=== PATIENT | male | born 1965 | race Caucasian/White ===

== ENCOUNTER 2020-09-02 21:22 | Inpatient (IN) | payer OTHER ==
[2020-09-02] MEDS ORDERED: methylPREDNISolone SOD SUCCI 125 MG/2 ML VIAL IV STA (21:45)
[2020-09-02] MEDS ORDERED: IPRATROPIUM-ALBUTEROL 3 ML NEB INHALATION STA (21:45)
[2020-09-02 21:56] LABS: HCT 46.4 % (39.0-53.0); HGB 16.5 gm/dL (13.0-17.5); MCH 31.7 pg (25.0-35.0); MCHC 35.6 g/dL (31.0-37.0); MCV 88.9 fL (80.0-100.0); Mean Platelet Volume 8.1; Platelet Count 168 k/uL (150-450); RBC 5.22 m/uL (4.30-5.90)
[2020-09-02 22:06] LABS: AST 107 U/L (17-59); African American GFR (CKD) >90 (>60 ml/min/1.73 sqM); Albumin 3.7 g/dL (3.5-5.0); Alkaline Phosphatase 114 U/L (38-126); Anion Gap 16 mmol/L; Blood Urea Nitrogen 35 mg/dL (9-20); Calcium 8.4 mg/dL (8.4-10.2); Carbon Dioxide 16 mmol/L (22-30); Chloride 105 mmol/L (98-107); Glucose 180 mg/dL (74-99); Magnesium 2.9 mg/dL (1.6-2.3); Non-African American GFR(CKD) 80 (>60 ml/min/1.73 sqM); Sodium 137 mmol/L (137-145); Total Bilirubin 1.6 mg/dL (0.2-1.3)
[2020-09-02 22:10] LABS: ALT 48 U/L (4-49)
[2020-09-02 22:17] LABS: C Reactive Protein 180.3 mg/L (<10.0)
[2020-09-02 22:21] LABS: INR 1.1 (<1.2); Prothrombin Time 11.9 sec (9.0-12.0)
--- NOTE | 2020-09-02 22:21 | XR ---
EXAMINATION TYPE: XR chest 1V portable DATE OF EXAM: 09/02/2020 COMPARISON: NONE HISTORY: Short of breath TECHNIQUE: Single view FINDINGS: There are bilateral extensive pulmonary interstitial infiltrates. Heart size is fairly norm al. There is no definite pleural effusion. There are no hilar masses. IMPRESSION: Bilateral interstitial pneumonia. Normal heart.
[2020-09-02] MEDS: ALBUTEROL HFA INHALER INHALATION SCH (22:22)
[2020-09-02 22:26] LABS: Band Neutrophils % 6 %; Lymphocytes # (M) 1.32 k/uL (1.0-4.8); Metamyelocytes # (M) 0.66 k/uL (0); Metamyelocytes % 2 %; Monocytes # (M) 2.32 k/uL (0-1.0); Myelocytes # (M) 0.33 k/uL (0); Myelocytes % 1 %; Neutrophils % (M) 81 %; Nucleated Red Blood Cells 2 /100 WBC (0-0); Promyelocytes # (M) 0.33 k/uL (0); Promyelocytes % 1 %; Total Cells Counted 200; WBC 33.1 k/uL (3.8-10.6)
[2020-09-02 22:34] LABS: Partial Thromboplastin Time 18.6 sec (22.0-30.0)
[2020-09-02 23:05] LABS: LDH 5924 U/L (313-618)
[2020-09-02] MEDS ORDERED: SODIUM CHLORIDE 0.9% 500 ML 500 ML IV ONE (23:19)
--- NOTE | 2020-09-03 00:20 | CT ---
EXAMINATION TYPE: CT chest angio for PE DATE OF EXAM: 09/02/2020 COMPARISON: None HISTORY: covid , hypoxia CT DLP: 436.7 mGycm Automated exposure control for dose reduction was used. CONTRAST: Performed with IV Contrast, patient injected with 75 mL of Isovue 370. There are 3-D post processed images. There is extensive patchy pulmonary interstitial infiltrates in both lungs with some coalescent densi ty in the lower lung bobo. There is probably some mild atelectasis at the lung bases. There is no p leural effusion. There is no pericardial effusion. There is no mediastinal adenopathy. Thoracic aorta is intact. There is no aneurysm or dissection. The re are no hilar masses. There is normal contrast opacification of the pulmonary arteries. There are no filling defects. The thoracic vertebra have normal alignment. There is no compression fracture. Sternum is intact. The re is evidence of fatty infiltration of the liver. IMPRESSION: No evidence of pulmonary embolism. Extensive pulmonary infiltrates are mostly interstitial and consis tent with severe interstitial pneumonia.
[2020-09-03] MEDS ORDERED: NALOXONE 0.4 MG/ML 1 ML VIAL IV PRN (00:56)
--- NOTE | 2020-09-03 01:01 | ED ---
SOB HPI - General Chief Complaint: Shortness of Breath Stated Complaint: FRITZ Time Seen by Provider: 09/02/20 21:41 Source: patient, EMS Mode of arrival: EMS Limitations: no limitations - History of Present Illness Initial Comments: 54yo male with hx of HTN, former smoker presenting for cc of dyspnea. patient states he was recently diagnosed with covid about 2 weeks ago, he state he was initially fine but now for the past week he has had increasing dyspnea and today very severe. Patient denies any chest pressure. Deep inspiration leg swelling hemoptysis he denies jaw pain arm pain and diaphoresis. He states he has had body aches and chills. He states he really has not had fevers. Patient denies nausea vomiting diarrhea or rashes. Patient on arrival is in significant respiratory distress and is quite hypoxic. Patient initially was placed on some oxygen which was not sufficient Airvo ordered. - Related Data Home Medications Medication Instructions Recorded Confirmed Albuterol Inhaler [Ventolin Hfa 2 puff INHALATION RT-QID PRN 09/02/20 09/02/20 Inhaler] Azithromycin [Zithromax Z-pack (6 See Taper PO DIRECTED 09/02/20 09/02/20 tabs)] Dexamethasone [Decadron] 3 mg PO BID 09/02/20 09/02/20 Promethazine 6.25MG/5Ml [Phenergan 12.5 mg PO QID PRN 09/02/20 09/02/20 Syrup] allopurinoL [Zyloprim] 300 mg PO DAILY 09/02/20 09/02/20 amLODIPine [Norvasc] 10 mg PO DAILY 09/02/20 09/02/20 Allergies Allergy/AdvReac Type Severity Reaction Status Date / Time No Known Allergies Allergy Verified 09/02/20 22:38 Review of Systems ROS Statement: Those systems with pertinent positive or pertinent negative responses have been documented in the HPI. ROS Other: All systems not noted in ROS Statement are negative. Past Medical History Past Medical History: Hypertension History of Any Multi-Drug Resistant Organisms: None Reported Past Surgical History: No Surgical Hx Reported Past Anesthesia/Blood Transfusion Reactions: No Reported Reaction Smoking Status: Former smoker Past Alcohol Use History: Occasional Past Drug Use History: None Reported - Past Family History Father Family Medical History: Cancer General Exam - General Exam Comments Initial Comments: General: The patient is awake and alert, obvious respiratory distress Eye: Pupils are equal, round and reactive to light, extra-ocular movements are intact. No nystagmus. There is normal conjunctiva bilaterally. No signs of icterus. Ears, nose, mouth and throat: There are moist mucous membranes and no oral lesions. Neck: The neck is supple, there is no tenderness or JVD. Cardiovascular: There is a regular rate and rhythm. No murmur, rub or gallop is appreciated. Respiratory: Respirations are very labored use of accessory muscles, breath sounds are equal. No wheezes, stridor.. Rhonchi appreciated throughotu as well as crackles. lip cyanotic Gastrointestinal: Soft, non-distended, non-tender abdomen without masses or organomegaly noted. There is no rebound or guarding present Musculoskeletal: Normal ROM, no tenderness. Strength 5/5. Sensation intact. radial and dp pulses equal bilaterally 2+. Neurological: A&O x 3. CN II-XII intact, There are no obvious motor or sensory deficits. Coordination appears grossly intact. Speech is normal. Skin: Skin is warm and dry and no rashes or lesions are noted. no leg swelling or calf pain. Psychiatric: Cooperative, appropriate mood & affect, normal judgment. Limitations: no limitations Course Vital Signs 09/02/20 09/02/20 09/02/20 21:36 22:13 22:36 Temperature 98.1 F Pulse Rate 98 91 82 Respiratory 40 H 28 H 28 H Rate Blood Pressure 144/87 142/85 O2 Sat by Pulse 86 L 94 L 94 L Oximetry 09/02/20 09/03/20 09/03/20 23:00 00:00 00:10 Temperature Pulse Rate 80 79 Respiratory 28 H 28 H 32 H Rate Blood Pressure 144/88 140/84 O2 Sat by Pulse 94 L 97 Oximetry Procedures - [place] Protocol (Time Out) Nurse: Caitlin Cui Medical Decision Making - Medical Decision Making Covid + pt. presents in distress/hypoxic evaluated by myself at initial attending Dr. Lang. pt given steroids, albuterol inhaler. patient switched to bipap after airvo not successful. patient work of breathing significantly decreased. patient now saturating at 93-95%on bipap. elevated troponin. no PE. patient BNP within acceptable limits. interstitial pneumonia. patient will be admitted for respiratoyr distress syndrome secondary to covid. pulmonology on consult. Col[facility] Baby Nurse aware of admit for [facility]. accepted patient. Jonathan agreeable to care plan. Total of 1 hour of critical care time spent, obtaining hx, re-evaluation, consulting physicians ect. - Lab Data Result diagrams: 09/02/20 21:41 09/02/20 21:41 Lab Results 09/02/20 09/02/20 09/02/20 Range/Units 21:41 21:41 21:41 WBC 33.1 H (3.8-10.6) k/uL RBC 5.22 (4.30-5.90) m/uL Hgb 16.5 (13.0-17.5) gm/dL Hct 46.4 (39.0-53.0) % MCV 88.9 (80.0-100.0) fL MCH 31.7 (25.0-35.0) pg MCHC 35.6 (31.0-37.0) g/dL RDW 14.0 (11.5-15.5) % Plt Count 168 (150-450) k/uL MPV 8.1 Neutrophils % (Manual) 81 % Band Neuts % (Manual) 6 % Lymphocytes % (Manual) 4 % Monocytes % (Manual) 7 % Metamyelocytes % 2 % Myelocytes % 1 % Promyelocytes % 1 % Neutrophils # (Manual) 28.70 H (1.3-7.7) k/uL Lymphocytes # (Manual) 1.32 (1.0-4.8) k/uL Monocytes # (Manual) 2.32 H (0-1.0) k/uL Metamyelocytes # (Man) 0.66 H (0) k/uL Myelocytes # (Manual) 0.33 H (0) k/uL Promyelocytes # (Man) 0.33 H (0) k/uL Nucleated RBCs 2 H (0-0) /100 WBC Manual Slide Review Performed PT 11.9 (9.0-12.0) sec INR 1.1 (<1.2) APTT 18.6 L (22.0-30.0) sec D-Dimer >35.20 H (<0.60) mg/L FEU Sodium 137 (137-145) mmol/L Potassium 5.0 (3.5-5.1) mmol/L Chloride 105 (98-107) mmol/L Carbon Dioxide 16 L (22-30) mmol/L Anion Gap 16 mmol/L BUN 35 H (9-20) mg/dL Creatinine 1.04 (0.66-1.25) mg/dL Est GFR (CKD-EPI)AfAm >90 (>60 ml/min/1.73 sqM) Est GFR (CKD-EPI)NonAf 80 (>60 ml/min/1.73 sqM) Glucose 180 H (74-99) mg/dL Lactic Ac Sepsis Rflx Plasma Lactic Acid Raymond (0.7-2.0) mmol/L Calcium 8.4 (8.4-10.2) mg/dL Magnesium 2.9 H (1.6-2.3) mg/dL Total Bilirubin 1.6 H (0.2-1.3) mg/dL AST 107 H (17-59) U/L ALT 48 (4-49) U/L Alkaline Phosphatase 114 (38-126) U/L Lactate Dehydrogenase 5924 H (313-618) U/L Troponin I (0.000-0.034) ng/mL C-Reactive Protein 180.3 H (<10.0) mg/L NT-Pro-B Natriuret Pep pg/mL Total Protein 7.0 (6.3-8.2) g/dL Albumin 3.7 (3.5-5.0) g/dL 09/02/20 09/02/20 09/02/20 Range/Units 21:41 21:41 21:41 WBC (3.8-10.6) k/uL RBC (4.30-5.90) m/uL Hgb (13.0-17.5) gm/dL Hct (39.0-53.0) % MCV (80.0-100.0) fL MCH (25.0-35.0) pg MCHC (31.0-37.0) g/dL RDW (11.5-15.5) % Plt Count (150-450) k/uL MPV Neutrophils % (Manual) % Band Neuts % (Manual) % Lymphocytes % (Manual) % Monocytes % (Manual) % Metamyelocytes % % Myelocytes % % Promyelocytes % % Neutrophils # (Manual) (1.3-7.7) k/uL Lymphocytes # (Manual) (1.0-4.8) k/uL Monocytes # (Manual) (0-1.0) k/uL Metamyelocytes # (Man) (0) k/uL Myelocytes # (Manual) (0) k/uL Promyelocytes # (Man) (0) k/uL Nucleated RBCs (0-0) /100 WBC Manual Slide Review PT (9.0-12.0) sec INR (<1.2) APTT (22.0-30.0) sec D-Dimer (<0.60) mg/L FEU Sodium (137-145) mmol/L Potassium (3.5-5.1) mmol/L Chloride (98-107) mmol/L Carbon Dioxide (22-30) mmol/L Anion Gap mmol/L BUN (9-20) mg/dL Creatinine (0.66-1.25) mg/dL Est GFR (CKD-EPI)AfAm (>60 ml/min/1.73 sqM) Est GFR (CKD-EPI)NonAf (>60 ml/min/1.73 sqM) Glucose (74-99) mg/dL Lactic Ac Sepsis Rflx Plasma Lactic Acid Raymond 4.5 H* (0.7-2.0) mmol/L Calcium (8.4-10.2) mg/dL Magnesium (1.6-2.3) mg/dL Total Bilirubin (0.2-1.3) mg/dL AST (17-59) U/L ALT (4-49) U/L Alkaline Phosphatase (38-126) U/L Lactate Dehydrogenase (313-618) U/L Troponin I 4.190 H* (0.000-0.034) ng/mL C-Reactive Protein (<10.0) mg/L NT-Pro-B Natriuret Pep 750 pg/mL Total Protein (6.3-8.2) g/dL Albumin (3.5-5.0) g/dL 09/02/20 09/03/20 Range/Units 22:32 00:53 WBC (3.8-10.6) k/uL RBC (4.30-5.90) m/uL Hgb (13.0-17.5) gm/dL Hct (39.0-53.0) % MCV (80.0-100.0) fL MCH (25.0-35.0) pg MCHC (31.0-37.0) g/dL RDW (11.5-15.5) % Plt Count (150-450) k/uL MPV Neutrophils % (Manual) % Band Neuts % (Manual) % Lymphocytes % (Manual) % Monocytes % (Manual) % Metamyelocytes % % Myelocytes % % Promyelocytes % % Neutrophils # (Manual) (1.3-7.7) k/uL Lymphocytes # (Manual) (1.0-4.8) k/uL Monocytes # (Manual) (0-1.0) k/uL Metamyelocytes # (Man) (0) k/uL Myelocytes # (Manual) (0) k/uL Promyelocytes # (Man) (0) k/uL Nucleated RBCs (0-0) /100 WBC Manual Slide Review PT (9.0-12.0) sec INR (<1.2) APTT (22.0-30.0) sec D-Dimer (<0.60) mg/L FEU Sodium (137-145) mmol/L Potassium (3.5-5.1) mmol/L Chloride (98-107) mmol/L Carbon Dioxide (22-30) mmol/L Anion Gap mmol/L BUN (9-20) mg/dL Creatinine (0.66-1.25) mg/dL Est GFR (CKD-EPI)AfAm (>60 ml/min/1.73 sqM) Est GFR (CKD-EPI)NonAf (>60 ml/min/1.73 sqM) Glucose (74-99) mg/dL Lactic Ac Sepsis Rflx Y Plasma Lactic Acid Raymond 2.1 H* (0.7-2.0) mmol/L Calcium (8.4-10.2) mg/dL Magnesium (1.6-2.3) mg/dL Total Bilirubin (0.2-1.3) mg/dL AST (17-59) U/L ALT (4-49) U/L Alkaline Phosphatase (38-126) U/L Lactate Dehydrogenase (313-618) U/L Troponin I (0.000-0.034) ng/mL C-Reactive Protein (<10.0) mg/L NT-Pro-B Natriuret Pep pg/mL Total Protein (6.3-8.2) g/dL Albumin (3.5-5.0) g/dL Disposition Clinical Impression: ARDS (adult respiratory distress syndrome), Hypoxia, COVID-19, Pneumonia due to COVID-19 virus, Elevated troponin Disposition: ADMITTED IP TO THIS HOSP Condition: Stable Is patient prescribed a controlled substance at d/c from ED?: No Referrals: Darius Contreras MD [Primary Care Provider] - 1-2 days Time of Disposition: 01:00 Decision to Admit Reason: Admit from EC Decision Date: 09/03/20 Decision Time: 01:00
[2020-09-03] MEDS: ALBUTEROL HFA INHALER INHALATION SCH ×6 (03:34→22:14)
[2020-09-03] MEDS ORDERED: ENOXAPARIN 60 MG/0.6 ML SYRINGE SQ SCH (09:00)
[2020-09-03] MEDS ORDERED: TOCILIZUMAB 800 MG in SODIUM CHLORIDE 0.9% 60 ML IV ONE (09:30)
[2020-09-03 09:43] LABS: Amorphous Sediment,Urine Occasional /hpf; Appearance,Urine Clear (Clear); Bilirubin,Urine Negative (Negative); Blood,Urine Negative (Negative); Color,Urine Yellow; Glucose,Urine (UA) Negative (Negative); Hyaline Casts,Urine 4 /lpf (0-2); Ketones,Urine Negative (Negative); Leukocyte Esterase,Urine Negative (Negative); Mucus,Urine Few /hpf; Nitrite,Urine Negative (Negative); PH, Urine 5.5 (5.0-8.0); Protein,Urine 1+ (Negative); Specific Gravity,Urine 1.023 (1.001-1.035); Squamous Epithelial Cell,Urine <1 /hpf (0-4); Urobilinogen,Urine <2.0 mg/dL (<2.0); WBC,Urine 2 /hpf (0-5)
[2020-09-03] MEDS: DEXAMETHASONE SOD PHOSPHATE 10 MG/ML 1 ML VIAL IV SCH (10:05)
[2020-09-03] MEDS: ZINC SULFATE 220 MG CAP PO SCH (10:07)
[2020-09-03] MEDS: CHOLECALCIFEROL 25 MCG (1000 IU) TABLET PO SCH (10:07)
[2020-09-03] MEDS: ASCORBIC ACID 500 MG TAB PO SCH ×2 (10:07→21:25)
[2020-09-03] MEDS: SODIUM CHLORIDE 0.9% 1,000 ML IV SCH ×2 (10:08→12:56)
[2020-09-03] MEDS ORDERED: ALBUTEROL HFA INHALER INHALATION PRN (10:16)
--- NOTE | 2020-09-03 12:01 | ECHOF ---
Referral Reason:elevated troponin MEASUREMENTS -------- HEIGHT: 172.7 cm WEIGHT: 97.5 kg BP: RVIDd: 3.0 cm (< 3.3) IVSd: 1.7 cm (0.6 - 1.1) LVIDd: 4.1 cm (3.9 - 5.3) LVPWd: 1.5 cm (0.6 - 1.1) IVSs: 1.9 cm LVIDs: 3.0 cm LVPWs: 2.0 cm LAESV Index (A-L): 19.21 ml/m Ao Diam: 3.2 cm (2.0 - 3.7) AV Cusp: 2.3 cm (1.5 - 2.6) LA Diam: 2.8 cm (2.7 - 3.8) MV EXCURSION: 11.323 mm (> 18.000) MV EF SLOPE: 95 mm/s (70 - 150) EPSS: 0.9 cm MV E Gabriel: 0.67 m/s MV DecT: 321 ms MV A Gabriel: 0.73 m/s MV E/A Ratio: 0.91 AR PHT: 926 ms RAP: 5.00 mmHg RVSP: 36.60 mmHg FINDINGS -------- This was a technically adequate study. The left ventricular size is normal. There is moderate concentric left ventricular hypertrophy. O verall left ventricular systolic function is normal with, an EF between 55 - 60 %. The diastolic fi lling pattern is normal for the age of the patient 8.88. The right ventricle is normal in size. The left atrial size is normal. Normal LA size by volume 22+/-6 ml/m2. The right atrial size is normal. The aortic valve is trileaflet and appears structurally normal. The mitral valve is normal. There is trace mitral regurgitation. The tricuspid valve appears structurally normal. Trace tricuspid regurgitation present. Right adam tricular systolic pressure is normal at < 35 mmHg. The pulmonic valve was not well visualized. The aortic root size is normal. IVC Not well visulized. There is no pericardial effusion. CONCLUSIONS -------- 1. The left ventricular size is normal. 2. There is moderate concentric left ventricular hypertrophy. 3. Overall left ventricular systolic function is normal with, an EF between 55 - 60 %. 4. The diastolic filling pattern is normal for the age of the patient 8.88 5. There is trace mitral regurgitation. 6. Trace tricuspid regurgitation present. 7. There is no pericardial effusion. MOGUL OPERATOR: Ada Rosa RDCS
--- NOTE | 2020-09-03 13:36 | P.CNPUL ---
History of Present Illness Consult date: 09/03/20 Requesting physician: Jorge Castillo Reason for consult: dyspnea, hypoxemia, abnormal CXR/CT Chief complaint: Dyspnea, hypoxemia, Covid 19 pneumonia History of present illness: 54-year-old white male patient who is an ex smoker, carries [id number] smoking history quit smoking 1 year ago in May, history of hypertension and gout who sees Dr. Contreras, presented to the emergency department on 08/02/2020 with complaints of worsening shortness of breath, cough, and patient was diagnosed with Covid 19 one week ago, was tested at [facility] per Dr. Contreras's order. 2 weeks ago he had symptoms of flulike illness, sore throat, shortness of breath, weakness, muscle aches which progressively became worse, and patient developed worsening shortness of breath and had difficulty breathing and ambulating at home. He was placed on Decadron [address] Contreras and he has 1-1/2 days worth left of it. Chest x-ray in the emergency department showed bilateral interstitial pneumonia. White blood cell count was 33.1, d-dimer was greater than 35.2, CO2 is 16, the rest of electrolytes were unremarkable, B1 is 35 creatinine is 1.04, plasma lactic acid is 4.5, patient was given IV fluids and lactic acid came down to 1.8, total bilirubin was 1.6, AST is 107, ALT is 48, alkaline phosphatase is 114, LDH is 5924, first troponin was 4.190, and the second one went up to 6.960. CRP is 180.3, pro-calcitonin level is 0.33, urinalysis showed 1+ protein, but no definite sign of infection, pulse ox is 86 on room air, patient has significant shortness of breath, and was placed on B iPAP support, currently with pressures of 12/6, and FiO2 of 100% on which he remains this morning, he is afebrile, hemodynamically he is stable, she was started on IV Decadron, we'll start him on intermediate dose of Lovenox 50 mg every 12 hours, CTA chest shows no evidence of pulmonary embolism, and extensive pulmonary infiltrates that are mostly interstitial consistent with severe interstitial pneumonia. Review of Systems All systems: negative Constitutional: Denies chills, Denies fever Eyes: denies blurred vision, denies pain Ears, nose, mouth and throat: Denies headache, Denies sore throat Cardiovascular: Denies chest pain, Denies shortness of breath Respiratory: Reports dyspnea, Denies cough Gastrointestinal: Denies abdominal pain, Denies diarrhea, Denies nausea, Denies vomiting Musculoskeletal: Denies myalgias Integumentary: Denies pruritus, Denies rash Neurological: Denies numbness, Denies weakness Psychiatric: Denies anxiety, Denies depression Endocrine: Denies fatigue, Denies weight change Past Medical History Past Medical History: Hypertension History of Any Multi-Drug Resistant Organisms: None Reported Past Surgical History: No Surgical Hx Reported Past Anesthesia/Blood Transfusion Reactions: No Reported Reaction Smoking Status: Former smoker Past Alcohol Use History: Occasional Past Drug Use History: None Reported - Past Family History Father Family Medical History: Cancer Medications and Allergies Home Medications Medication Instructions Recorded Confirmed Type Albuterol Inhaler [Ventolin Hfa 2 puff INHALATION RT-QID PRN 09/02/20 09/02/20 History Inhaler] Azithromycin [Zithromax Z-pack (6 See Taper PO DIRECTED 09/02/20 09/02/20 History tabs)] Dexamethasone [Decadron] 3 mg PO BID 09/02/20 09/02/20 History Promethazine 6.25MG/5Ml [Phenergan 12.5 mg PO QID PRN 09/02/20 09/02/20 History Syrup] allopurinoL [Zyloprim] 300 mg PO DAILY 09/02/20 09/02/20 History amLODIPine [Norvasc] 10 mg PO DAILY 09/02/20 09/02/20 History Allergies Allergy/AdvReac Type Severity Reaction Status Date / Time No Known Allergies Allergy Verified 09/02/20 22:38 Physical Exam Vitals: Vital Signs Temp Pulse Resp BP Pulse Ox 09/03/20 11:11 97.7 F 58 L 32 H 141/78 94 L 09/03/20 06:09 97.5 F L 66 24 155/83 95 09/03/20 02:00 67 24 123/75 95 09/03/20 01:00 70 24 142/81 95 09/03/20 00:10 32 H 09/03/20 00:08 78 140/84 96 09/03/20 00:00 79 28 H 140/84 97 09/02/20 23:00 80 28 H 144/88 94 L 09/02/20 22:36 82 28 H 142/85 94 L 09/02/20 22:13 91 28 H 94 L 09/02/20 21:36 98.1 F 98 40 H 144/87 86 L Intake and Output 09/02/20 09/03/20 09/03/20 22:59 06:59 14:59 Output Total 500 Balance -500 Output: Urine 500 Other: Weight 97.522 kg GENERAL EXAM: Alert, very pleasant, 54-year-old white male, BiPAP support, with pressures of 12 6 and FiO2 of 100%, comfortable in no apparent distress. HEAD: Normocephalic/atraumatic. EYES: Normal reaction of pupils, equal size. Conjunctiva pink, sclera white. NOSE: Clear with pink turbinates. THROAT: No erythema or exudates. NECK: No masses, no JVD, no thyroid enlargement, no adenopathy. CHEST: No chest wall deformity. Symmetrical expansion. LUNGS: Equal air entry with no crackles, wheeze, rhonchi or dullness. CVS: Regular rate and rhythm, normal S1 and S2, no gallops, no murmurs, no rubs ABDOMEN: Soft, nontender. No hepatosplenomegaly, normal bowel sounds, no guarding or rigidity. EXTREMITIES: No clubbing, no edema, no cyanosis, 2+ pulses and upper and lower extremities. MUSCULOSKELETAL: Muscle strength and tone normal. SPINE: No scoliosis or deformity SKIN: No rashes CENTRAL NERVOUS SYSTEM: Alert and oriented -3. No focal deficits, tone is normal in all 4 extremities. PSYCHIATRIC: Alert and oriented -3. Appropriate affect. Intact judgment and insight. Results - Laboratory Findings CBC and BMP: 09/02/20 21:41 09/02/20 21:41 PT/INR, D-dimer PT 11.9 sec (9.0-12.0) 09/02/20 21:41 INR 1.1 (<1.2) 09/02/20 21:41 D-Dimer >35.20 mg/L FEU (<0.60) H 09/02/20 21:41 Abnormal lab findings: Abnormal Labs 09/02/20 09/02/20 04 21:41 21:41 21:41 WBC 33.1 H Neutrophils # (Manual) 28.70 H Monocytes # (Manual) 2.32 H Metamyelocytes # (Man) 0.66 H Myelocytes # (Manual) 0.33 H Promyelocytes # (Man) 0.33 H Nucleated RBCs 2 H APTT 18.6 L D-Dimer >35.20 H Carbon Dioxide 16 L BUN 35 H Glucose 180 H Plasma Lactic Acid Raymond Magnesium 2.9 H Total Bilirubin 1.6 H AST 107 H Lactate Dehydrogenase 5924 H Troponin I C-Reactive Protein 180.3 H Procalcitonin Urine Protein Amorphous Sediment Hyaline Casts Urine Mucus 09/02/20 09/02/20 09/02/20 21:41 21:41 21:41 WBC Neutrophils # (Manual) Monocytes # (Manual) Metamyelocytes # (Man) Myelocytes # (Manual) Promyelocytes # (Man) Nucleated RBCs APTT D-Dimer Carbon Dioxide BUN Glucose Plasma Lactic Acid Raymond 4.5 H* Magnesium Total Bilirubin AST Lactate Dehydrogenase Troponin I 4.190 H* C-Reactive Protein Procalcitonin 0.33 H Urine Protein Amorphous Sediment Hyaline Casts Urine Mucus 09/03/20 09/03/20 09/03/20 00:53 08:12 09:26 WBC Neutrophils # (Manual) Monocytes # (Manual) Metamyelocytes # (Man) Myelocytes # (Manual) Promyelocytes # (Man) Nucleated RBCs APTT D-Dimer Carbon Dioxide BUN Glucose Plasma Lactic Acid Raymond 2.1 H* Magnesium Total Bilirubin AST Lactate Dehydrogenase Troponin I 6.960 H* C-Reactive Protein Procalcitonin Urine Protein 1+ H Amorphous Sediment Occasional H Hyaline Casts 4 H Urine Mucus Few H - Diagnostic Findings Chest x-ray: report reviewed, image reviewed CT scan - chest: report reviewed, image reviewed Additional studies: EKG reviewed Assessment and Plan Plan: Assessment: #1. Acute hypoxic respiratory failure related to acute Covid 19 related pneumonia, with onset of symptoms 2 weeks ago, and positive outpatient test one week ago, was treated with oral Decadron on an outpatient basis with progression of symptoms and progression to hypoxic respiratory failure. Patient is out of the window for Remdesivir, he will receive Tocilizumab and 1 unit of convalescent plasma #2. Lactic acid, but low pro-calcitonin level, could be related to dehydration, improved with hydration #3. Elevated d-dimer, and inflammatory markers related to the above, no CTA evidence of pulmonary embolism, patient will be started on Lovenox 50 mg twice daily #4. Hypertension #5. Former smoker, in remission for 1 year, carries [id number] smoking history #6. Elevated troponins, no reports of chest pain, we will obtain follow-up troponin is and cardiology consultation and echocardiogram Plan: We'll continue current medical treatment, patient is out of the window for Remdesivir, we'll order Tocilizumab, continue vitamins, Lovenox 50 mg twice daily, there is no CTA evidence of pulmonary embolism, we'll continue to follow d-dimer on daily basis, unless cardiology decides to put the patient on heparin infusion once they evaluate the patient. Prognosis is guarded, continue to closely follow his clinical course, follow-up inflammatory markers chest x-ray tomorrow, I performed a history & physical examination of the patient and discussed their management with my nurse practitioner, Carli Schroeder. I reviewed the nurse practitioner's note and agree with the documented findings and plan of care. Lung sounds are positive for diminished breath sounds with crackles The findings and the impression was discussed with the patient. I attest to the documentation by the nurse practitioner. Time with Patient: Greater than 30
[2020-09-03] MEDS ORDERED: HEPARIN SODIUM 1,000 UN/ML (10ML VL) IV PRN (13:43)
[2020-09-03] MEDS ORDERED: ASPIRIN 325 MG TAB PO STA (13:45)
--- NOTE | 2020-09-03 13:47 | P.HPIM ---
History of Present Illness Patient is pleasant 54-year-old male came in with complaints of shortness of breath cough. Episodes of diarrhea nausea, generalized body aches and fevers at home patient was diagnosed with Covid 19 about a week ago patient's symptoms can you to get worse and patient is more short of breath because of which patient came to ER found to be hypoxic was started on IV fluids and patient has elevated inflammatory markers along with elevated troponin of 4.190 which of and up to 6.960 was started on IV heparin Decadron subsequently admitted. Patient had a CT of the chest which did not show any PE but did show extensive pulmonary infiltrates had an echocardiogram as well which did not show any significant abnormality. Cardiology and pulmonology were consulted. Patient is on heparin 50 twice a day which will be switched to anticoagulation those that is 90 twice a day testing elevation of troponin. Review of Systems REVIEW OF SYSTEMS: CONSTITUTIONAL: As mentioned in HPI HEENT: No recent visual problems or hearing problems. Denied any sore throat. CARDIOVASCULAR: No chest pain, orthopnea, PND, no palpitations, no syncope. PULMONARY: No shortness of breath, no cough, no hemoptysis. GASTROINTESTINAL: No diarrhea, no nausea, no vomiting, no abdominal pain. NEUROLOGICAL: No headaches, no weakness, no numbness. HEMATOLOGICAL: Denies any bleeding or petechiae. GENITOURINARY: Denies any burning micturition, frequency, or urgency. MUSCULOSKELETAL/RHEUMATOLOGICAL: Denies any joint pain, swelling, or any muscle pain. ENDOCRINE: Denies any polyuria or polydipsia. The rest of the 14-point review of systems is negative. Past Medical History Past Medical History: Hypertension History of Any Multi-Drug Resistant Organisms: None Reported Past Surgical History: No Surgical Hx Reported Past Anesthesia/Blood Transfusion Reactions: No Reported Reaction Smoking Status: Former smoker Past Alcohol Use History: Occasional Past Drug Use History: None Reported - Past Family History Father Family Medical History: Cancer Medications and Allergies Home Medications Medication Instructions Recorded Confirmed Type Albuterol Inhaler [Ventolin Hfa 2 puff INHALATION RT-QID PRN 09/02/20 09/02/20 History Inhaler] Azithromycin [Zithromax Z-pack (6 See Taper PO DIRECTED 09/02/20 09/02/20 History tabs)] Dexamethasone [Decadron] 3 mg PO BID 09/02/20 09/02/20 History Promethazine 6.25MG/5Ml [Phenergan 12.5 mg PO QID PRN 09/02/20 09/02/20 History Syrup] allopurinoL [Zyloprim] 300 mg PO DAILY 09/02/20 09/02/20 History amLODIPine [Norvasc] 10 mg PO DAILY 09/02/20 09/02/20 History Allergies Allergy/AdvReac Type Severity Reaction Status Date / Time No Known Allergies Allergy Verified 09/02/20 22:38 Physical Exam Vitals: Vital Signs Temp Pulse Resp BP Pulse Ox 09/03/20 11:11 97.7 F 58 L 32 H 141/78 94 L 09/03/20 06:09 97.5 F L 66 24 155/83 95 09/03/20 02:00 67 24 123/75 95 09/03/20 01:00 70 24 142/81 95 09/03/20 00:10 32 H 09/03/20 00:08 78 140/84 96 09/03/20 00:00 79 28 H 140/84 97 09/02/20 23:00 80 28 H 144/88 94 L 09/02/20 22:36 82 28 H 142/85 94 L 09/02/20 22:13 91 28 H 94 L 09/02/20 21:36 98.1 F 98 40 H 144/87 86 L Intake and Output 09/02/20 09/03/20 09/03/20 22:59 06:59 14:59 Output Total 500 Balance -500 Output: Urine 500 Other: Weight 97.522 kg PHYSICAL EXAMINATION: GENERAL: The patient is alert and oriented x3, not in any acute distress. Well developed, well nourished. HEENT: Pupils are round and equally reacting to light. EOMI. No scleral icterus. No conjunctival pallor. Normocephalic, atraumatic. No pharyngeal erythema. No thyromegaly. CARDIOVASCULAR: S1 and S2 present. No murmurs, rubs, or gallops. PULMONARY: Chest is clear to auscultation, no wheezing or crackles. ABDOMEN: Soft, nontender, nondistended, normoactive bowel sounds. No palpable organomegaly. MUSCULOSKELETAL: No joint swelling or deformity. EXTREMITIES: No cyanosis, clubbing, or pedal edema. NEUROLOGICAL: Gross neurological examination did not reveal any focal deficits. SKIN: No rashes. Results CBC & Chem 7: 09/02/20 21:41 09/02/20 21:41 Labs: Abnormal Lab Results - Last 24 Hours (Table) 09/02/20 09/02/20 09/02/20 Range/Units 21:41 21:41 21:41 WBC 33.1 H (3.8-10.6) k/uL Neutrophils # (Manual) 28.70 H (1.3-7.7) k/uL Monocytes # (Manual) 2.32 H (0-1.0) k/uL Metamyelocytes # (Man) 0.66 H (0) k/uL Myelocytes # (Manual) 0.33 H (0) k/uL Promyelocytes # (Man) 0.33 H (0) k/uL Nucleated RBCs 2 H (0-0) /100 WBC APTT 18.6 L (22.0-30.0) sec D-Dimer >35.20 H (<0.60) mg/L FEU Carbon Dioxide 16 L (22-30) mmol/L BUN 35 H (9-20) mg/dL Glucose 180 H (74-99) mg/dL Plasma Lactic Acid Raymond (0.7-2.0) mmol/L Magnesium 2.9 H (1.6-2.3) mg/dL Total Bilirubin 1.6 H (0.2-1.3) mg/dL AST 107 H (17-59) U/L Lactate Dehydrogenase 5924 H (313-618) U/L Troponin I (0.000-0.034) ng/mL C-Reactive Protein 180.3 H (<10.0) mg/L Procalcitonin (0.02-0.09) ng/mL Urine Protein (Negative) Amorphous Sediment (None) /hpf Hyaline Casts (0-2) /lpf Urine Mucus (None) /hpf 09/02/20 09/02/20 09/02/20 Range/Units 21:41 21:41 21:41 WBC (3.8-10.6) k/uL Neutrophils # (Manual) (1.3-7.7) k/uL Monocytes # (Manual) (0-1.0) k/uL Metamyelocytes # (Man) (0) k/uL Myelocytes # (Manual) (0) k/uL Promyelocytes # (Man) (0) k/uL Nucleated RBCs (0-0) /100 WBC APTT (22.0-30.0) sec D-Dimer (<0.60) mg/L FEU Carbon Dioxide (22-30) mmol/L BUN (9-20) mg/dL Glucose (74-99) mg/dL Plasma Lactic Acid Raymond 4.5 H* (0.7-2.0) mmol/L Magnesium (1.6-2.3) mg/dL Total Bilirubin (0.2-1.3) mg/dL AST (17-59) U/L Lactate Dehydrogenase (313-618) U/L Troponin I 4.190 H* (0.000-0.034) ng/mL C-Reactive Protein (<10.0) mg/L Procalcitonin 0.33 H (0.02-0.09) ng/mL Urine Protein (Negative) Amorphous Sediment (None) /hpf Hyaline Casts (0-2) /lpf Urine Mucus (None) /hpf 09/03/20 09/03/20 09/03/20 Range/Units 00:53 08:12 09:26 WBC (3.8-10.6) k/uL Neutrophils # (Manual) (1.3-7.7) k/uL Monocytes # (Manual) (0-1.0) k/uL Metamyelocytes # (Man) (0) k/uL Myelocytes # (Manual) (0) k/uL Promyelocytes # (Man) (0) k/uL Nucleated RBCs (0-0) /100 WBC APTT (22.0-30.0) sec D-Dimer (<0.60) mg/L FEU Carbon Dioxide (22-30) mmol/L BUN (9-20) mg/dL Glucose (74-99) mg/dL Plasma Lactic Acid Raymond 2.1 H* (0.7-2.0) mmol/L Magnesium (1.6-2.3) mg/dL Total Bilirubin (0.2-1.3) mg/dL AST (17-59) U/L Lactate Dehydrogenase (313-618) U/L Troponin I 6.960 H* (0.000-0.034) ng/mL C-Reactive Protein (<10.0) mg/L Procalcitonin (0.02-0.09) ng/mL Urine Protein 1+ H (Negative) Amorphous Sediment Occasional H (None) /hpf Hyaline Casts 4 H (0-2) /lpf Urine Mucus Few H (None) /hpf 09/03/20 Range/Units 11:59 WBC (3.8-10.6) k/uL Neutrophils # (Manual) (1.3-7.7) k/uL Monocytes # (Manual) (0-1.0) k/uL Metamyelocytes # (Man) (0) k/uL Myelocytes # (Manual) (0) k/uL Promyelocytes # (Man) (0) k/uL Nucleated RBCs (0-0) /100 WBC APTT (22.0-30.0) sec D-Dimer (<0.60) mg/L FEU Carbon Dioxide (22-30) mmol/L BUN (9-20) mg/dL Glucose (74-99) mg/dL Plasma Lactic Acid Raymond (0.7-2.0) mmol/L Magnesium (1.6-2.3) mg/dL Total Bilirubin (0.2-1.3) mg/dL AST (17-59) U/L Lactate Dehydrogenase (313-618) U/L Troponin I 6.590 H* (0.000-0.034) ng/mL C-Reactive Protein (<10.0) mg/L Procalcitonin (0.02-0.09) ng/mL Urine Protein (Negative) Amorphous Sediment (None) /hpf Hyaline Casts (0-2) /lpf Urine Mucus (None) /hpf Assessment and Plan Plan: -Acute hypoxic respiratory failure: Secondary to Covid 19. Patient was started on Decadron, vitamins. Patient is out of the window for Remdesivir, he will receive Tocilizumab and 1 unit of convalescent plasma. -Lactic acidosis secondary to intravascular volume depletion dehydration patient will be started and continued on IV fluids -Hypertension -Rule out PE -Elevated troponins cannot rule out that non-ST elevation myocardial infarction cardiology was consulted echocardiogram was done which did not show any significant abnormality patient troponin trend is upwards, changing the dose of Lovenox to anticoagulation dose -GI prophylaxis with Pepcid
--- NOTE | 2020-09-03 13:50 | P.CRDCN ---
History of Present Illness Consult date: 09/03/20 Chief complaint: shortness of breath History of present illness: This is a 54-year-old gentleman with no significant past medical history who pre sented to the emergency department complaining of shortness of breath. we consulted to see the patient because of abnormal cardiac enzymes. The patient stated that he was short of breath for the last few weeks. About a week ago he was tested positive for cough 19 infection. For the last few days he has been experiencing increasing in the shortness of breath and flulike symptoms. No fever and no chills. No chest pain and no chest discomfort. No cough or sputum. The chest x-ray showed bilateral interstitial pneumonia and infiltrates. WBC was elevated. Computed tomography scan of the chest was performed for abnormal d-dimer and the computed tomography scan showed also bilateral infiltrate without any evidence of PE. The troponin was elevated. The EKG showed sinus rhythm with nonspecific ST and T wave abnormalities. No prior history of coronary artery disease or congestive heart failure and no cardiac arrhythmia. 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 On examina tion he seems comfortable. He is not having any chest discomfort at this point. He does have diminished breathing sounds bilaterally and also bilateral crackles. Very mild bilateral lower extremities edema noted. Please note that his lactic acid came in to be elevated. The patient was seen already by the pulmonary service he was diagnosed with bilateral pneumonia and was started on antibiotic. Past Medical History Past Medical History: Hypertension History of Any Multi-Drug Resistant Organisms: None Reported Past Surgical History: No Surgical Hx Reported Past Anesthesia/Blood Transfusion Reactions: No Reported Reaction Smoking Status: Former smoker Past Alcohol Use History: Occasional Past Drug Use History: None Reported - Past Family History Father Family Medical History: Cancer Medications and Allergies Home Medications Medication Instructions Recorded Confirmed Type Albuterol Inhaler [Ventolin Hfa 2 puff INHALATION RT-QID PRN 09/02/20 09/02/20 History Inhaler] Azithromycin [Zithromax Z-pack (6 See Taper PO DIRECTED 09/02/20 09/02/20 History tabs)] Dexamethasone [Decadron] 3 mg PO BID 09/02/20 09/02/20 History Promethazine 6.25MG/5Ml [Phenergan 12.5 mg PO QID PRN 09/02/20 09/02/20 History Syrup] allopurinoL [Zyloprim] 300 mg PO DAILY 09/02/20 09/02/20 History amLODIPine [Norvasc] 10 mg PO DAILY 09/02/20 09/02/20 History Allergies Allergy/AdvReac Type Severity Reaction Status Date / Time No Known Allergies Allergy Verified 09/02/20 22:38 Physical Exam Vitals: Vital Signs Temp Pulse Resp BP Pulse Ox 09/03/20 11:11 97.7 F 58 L 32 H 141/78 94 L 09/03/20 06:09 97.5 F L 66 24 155/83 95 09/03/20 02:00 67 24 123/75 95 09/03/20 01:00 70 24 142/81 95 09/03/20 00:10 32 H 09/03/20 00:08 78 140/84 96 09/03/20 00:00 79 28 H 140/84 97 09/02/20 23:00 80 28 H 144/88 94 L 09/02/20 22:36 82 28 H 142/85 94 L 09/02/20 22:13 91 28 H 94 L 09/02/20 21:36 98.1 F 98 40 H 144/87 86 L Intake and Output 09/02/20 09/03/20 09/03/20 22:59 06:59 14:59 Output Total 500 Balance -500 Output: Urine 500 Other: Weight 97.522 kg - Constitutional General appearance: no acute distress - Respiratory Respiratory: bilateral: diminished - Cardiovascular Rhythm: regular Heart sounds: normal: S1, S2 Results 09/02/20 21:41 09/02/20 21:41 Cardiac Enzymes 09/02/20 09/02/20 09/03/20 Range/Units 21:41 21:41 08:12 AST 107 H (17-59) U/L Lactate Dehydrogenase 5924 H (313-618) U/L Troponin I 4.190 H* 6.960 H* (0.000-0.034) ng/mL 09/03/20 Range/Units 11:59 AST (17-59) U/L Lactate Dehydrogenase (313-618) U/L Troponin I 6.590 H* (0.000-0.034) ng/mL Coagulation 09/02/20 Range/Units 21:41 PT 11.9 (9.0-12.0) sec APTT 18.6 L (22.0-30.0) sec CBC 09/02/20 Range/Units 21:41 WBC 33.1 H (3.8-10.6) k/uL RBC 5.22 (4.30-5.90) m/uL Hgb 16.5 (13.0-17.5) gm/dL Hct 46.4 (39.0-53.0) % Plt Count 168 (150-450) k/uL Comprehensive Metabolic Panel 09/02/20 Range/Units 21:41 Sodium 137 (137-145) mmol/L Potassium 5.0 (3.5-5.1) mmol/L Chloride 105 (98-107) mmol/L Carbon Dioxide 16 L (22-30) mmol/L BUN 35 H (9-20) mg/dL Creatinine 1.04 (0.66-1.25) mg/dL Glucose 180 H (74-99) mg/dL Calcium 8.4 (8.4-10.2) mg/dL AST 107 H (17-59) U/L ALT 48 (4-49) U/L Alkaline Phosphatase 114 (38-126) U/L Total Protein 7.0 (6.3-8.2) g/dL Albumin 3.7 (3.5-5.0) g/dL Current Medications Generic Name Dose Route Start Last Admin Trade Name Freq PRN Reason Stop Dose Admin Albuterol Sulfate 2 puff 09/02/20 22:00 09/03/20 13:43 Albuterol Hfa Inhaler INHALATION 2 puff Q4H SPENSER Administration Albuterol Sulfate 2 puff 09/03/20 10:16 Albuterol Hfa Inhaler INHALATION RT-QID PRN Shortness Of Breath Allopurinol 300 mg 09/04/20 09:00 Allopurinol 300 Mg Tab PO DAILY [facility] Amlodipine Besylate 10 mg 09/04/20 09:00 Amlodipine 10 Mg Tab PO DAILY [facility] Ascorbic Acid 500 mg 09/03/20 09:00 09/03/20 10:07 Ascorbic Acid 500 Mg Tab PO 500 mg BID SPENSER Administration Cholecalciferol 125 mcg 09/03/20 09:00 09/03/20 10:07 Cholecalciferol 25 Mcg (1000 Iu) Tablet PO 125 mcg DAILY SPENSER Administration Dexamethasone Sodium Phosphate 6 mg 09/03/20 09:00 09/03/20 10:05 Dexamethasone Sod Phosphate 10 Mg/Ml 1 Ml Vial IV 6 mg DAILY SPENSER Administration Sodium Chloride 1,000 mls @ 75 mls/hr 09/02/20 23:30 09/03/20 12:56 Saline 0.9% IV 75 mls/hr .[id number] SPENSER Administration Naloxone HCl 0.2 mg 09/03/20 00:56 Naloxone 0.4 Mg/Ml 1 Ml Vial IV Q2M PRN Opioid Reversal Promethazine HCl 12.5 mg 09/03/20 10:16 Promethazine Hcl 6.25 Mg/5 Ml Cup PO QID PRN Cough Zinc Sulfate 220 mg 09/03/20 09:00 09/03/20 10:07 Zinc Sulfate 220 Mg Cap PO 220 mg DAILY SPENSER Administration Intake and Output 09/02/20 09/03/20 09/03/20 22:59 06:59 14:59 Output Total 500 Balance -500 Output: Urine 500 Other: Weight 97.522 kg 09/02/20 21:41 09/02/20 21:41 Assessment and Plan Assessment: assessment 1. Acute hypoxic respiratory failure 2. Bilateral pneumonia 3. Abnormal cardiac enzymes likely type II myocardial infarction related to hypoxemia plan Start the patient on aspirin and heparin Start the patient on beta [place] Start the patient on statin Follow-up on the echocardiogram Follow-up with the patient
[2020-09-03] MEDS: HEPARIN SOD,PORK IN 0.45% NACL 25,000 UNIT in 0.45% NACL 1 250ML.BAG IV SCH (14:32)
[2020-09-03] MEDS: ATORVASTATIN 80 MG TAB PO SCH (14:34)
[2020-09-03] MEDS: FAMOTIDINE 20 MG TAB PO SCH ×2 (14:34→21:25)
[2020-09-03 15:45] LABS: INR 1.1 (<1.2); Partial Thromboplastin Time 20.4 sec (22.0-30.0); Prothrombin Time 11.6 sec (9.0-12.0)
[2020-09-03 20:11] LABS: Glucose,Whole Blood 134 mg/dL (75-99)
[2020-09-03] MEDS ORDERED: ENOXAPARIN 100 MG/ML SYRINGE SQ SCH (21:00)
[2020-09-03] MEDS: METOPROLOL TARTRATE 25 MG TAB PO SCH (21:24)
[2020-09-04] MEDS: ALBUTEROL HFA INHALER INHALATION SCH ×6 (01:23→20:35)
[2020-09-04 03:47] LABS: HCT 42.7 % (39.0-53.0); HGB 14.6 gm/dL (13.0-17.5); MCHC 34.2 g/dL (31.0-37.0); MCV 90.6 fL (80.0-100.0); Mean Platelet Volume 9.3; Platelet Count 140 k/uL (150-450); RBC 4.71 m/uL (4.30-5.90); RDW 14.4 % (11.5-15.5); WBC 29.3 k/uL (3.8-10.6)
[2020-09-04 03:53] LABS: ALT 40 U/L (4-49); AST 71 U/L (17-59); African American GFR (CKD) >90 (>60 ml/min/1.73 sqM); Albumin 2.9 g/dL (3.5-5.0); Alkaline Phosphatase 79 U/L (38-126); Anion Gap 6 mmol/L; Blood Urea Nitrogen 39 mg/dL (9-20); Calcium 8.2 mg/dL (8.4-10.2); Carbon Dioxide 25 mmol/L (22-30); Chloride 105 mmol/L (98-107); Glucose 120 mg/dL (74-99); Non-African American GFR(CKD) >90 (>60 ml/min/1.73 sqM); Potassium 5.1 mmol/L (3.5-5.1); Sodium 136 mmol/L (137-145); Total Bilirubin 0.9 mg/dL (0.2-1.3); Total Protein 5.8 g/dL (6.3-8.2)
[2020-09-04] MEDS: SODIUM CHLORIDE 0.9% 1,000 ML IV SCH ×2 (05:00→18:06)
[2020-09-04 05:44] LABS: C Reactive Protein 142.8 mg/L (<10.0); LDH 3965 U/L (313-618)
[2020-09-04 06:09] LABS: Glucose,Whole Blood 129 mg/dL (75-99)
--- NOTE | 2020-09-04 07:24 | XR ---
EXAMINATION TYPE: XR chest 1V portable DATE OF EXAM: 09/04/2020 HISTORY: Shortness of breath. COMPARISON: 09/02/2020 TECHNIQUE: Single view of the chest is submitted. FINDINGS: Demonstrated are scattered senescent parenchymal change. Worsening airspace infiltrates throughout both lung bobo. The heart is stable. Hilar and mediastinal structures are within normal limits. Degenerative changes are seen of the dorsal spine. IMPRESSION: 1. Worsening airspace infiltrates throughout both lung bobo.
[2020-09-04] MEDS: DEXAMETHASONE SOD PHOSPHATE 10 MG/ML 1 ML VIAL IV SCH (07:53)
[2020-09-04] MEDS: ZINC SULFATE 220 MG CAP PO SCH (07:54)
[2020-09-04] MEDS: ATORVASTATIN 80 MG TAB PO SCH (07:54)
[2020-09-04] MEDS: METOPROLOL TARTRATE 25 MG TAB PO SCH (07:54)
[2020-09-04] MEDS: ASPIRIN 81 MG PO SCH (07:54)
[2020-09-04] MEDS: amLODIPine 10 MG TAB PO SCH (07:54)
[2020-09-04] MEDS: FAMOTIDINE 20 MG TAB PO SCH ×2 (07:54→20:17)
[2020-09-04] MEDS: ASCORBIC ACID 500 MG TAB PO SCH ×2 (07:55→20:17)
[2020-09-04] MEDS: CHOLECALCIFEROL 25 MCG (1000 IU) TABLET PO SCH (07:55)
[2020-09-04] MEDS: allopurinoL 300 MG TAB PO SCH (07:55)
--- NOTE | 2020-09-04 11:53 | P.PN ---
Subjective Patient is pleasant 54-year-old male came in with complaints of shortness of breath cough. Episodes of diarrhea nausea, generalized body aches and fevers at home patient was diagnosed with Covid 19 about a week ago patient's symptoms can you to get worse and patient is more short of breath because of which patient came to ER found to be hypoxic was started on IV fluids and patient has elevated inflammatory markers along with elevated troponin of 4.190 which of and up to 6.960 was started on IV heparin Decadron subsequently admitted. Patient had a CT of the chest which did not show any PE but did show extensive pulmonary infiltrates had an echocardiogram as well which did not show any significant abnormality. Cardiology and pulmonology were consulted. Patient is on heparin 50 twice a day which will be switched to anticoagulation those that is 90 twice a day testing elevation of troponin. 09/04/2020 Patient was pretty status is bit worse today patient is requiring BiPAP at this time. Patient is presently on IV heparin echo is being obtain from cardiology perspective because of elevated troponins and the cardiology believes and this is secondary to severe hypoxemia from Covid 19. Patient is not feeling well feeling bit worse Constitutional: Denied any fatigue denied any fever. Cardio vascular: denied any chest pain, palpitations Gastrointestinal denied any nausea vomiting Pulmonary: Presently on BiPAP is short of breath Neurologic denied any new focal deficits All inpatient medications were reviewed and appropriate changes in these medications as dictated in the interval history and assessment and plan. Objective - Vital Signs Vital signs: Vital Signs Temp 98.1 F 09/04/20 07:30 Pulse 75 09/04/20 07:30 Resp 28 H 09/04/20 07:30 BP 142/68 09/04/20 07:30 Pulse Ox 93 L 09/04/20 07:30 Intake & Output 09/03/20 09/04/20 09/04/20 18:59 06:59 18:59 Intake Total 30.321 167.381 0 Output Total 504 202 800 Balance -473.679 -34.619 -800 Weight 97.522 kg 94.5 kg Intake: Intake, IV Titration 30.321 167.381 Amount Heparin Sod,Pork in 0.45% 30.321 167.381 NaCl 25,000 unit In 0.45 % NaCl 1 250ml.bag @ 10. 25 UNITS/KG/HR 9.996 mls/ hr IV .Q24H SPENSER Rx#: [id number] Oral 0 Output: Urine 503 200 800 Stool 1 2 Other: Voiding Method Urinal Urinal # Bowel Movements 0 - Exam PHYSICAL EXAMINATION: GENERAL: The patient is alert and oriented x3, not in any acute distress. Well developed, well nourished. Mild respiratory distress on BiPAP HEENT: Pupils are round and equally reacting to light. EOMI. No scleral icterus. No conjunctival pallor. Normocephalic, atraumatic. No pharyngeal erythema. No thyromegaly. CARDIOVASCULAR: S1 and S2 present. No murmurs, rubs, or gallops. PULMONARY: Chest is clear to auscultation, no wheezing or crackles. ABDOMEN: Soft, nontender, nondistended, normoactive bowel sounds. No palpable organomegaly. MUSCULOSKELETAL: No joint swelling or deformity. EXTREMITIES: No cyanosis, clubbing, or pedal edema. NEUROLOGICAL: Gross neurological examination did not reveal any focal deficits. SKIN: No rashes. - Labs CBC & Chem 7: 09/04/20 03:12 09/04/20 03:12 Labs: Abnormal Lab Results - Last 24 Hours (Table) 09/02/20 09/03/20 09/03/20 Range/Units 21:41 11:59 14:43 WBC (3.8-10.6) k/uL Plt Count (150-450) k/uL APTT 20.4 L (22.0-30.0) sec D-Dimer (<0.60) mg/L FEU Sodium (137-145) mmol/L BUN (9-20) mg/dL Glucose (74-99) mg/dL POC Glucose (mg/dL) (75-99) mg/dL Calcium (8.4-10.2) mg/dL Ferritin 2033.0 H (22.0-322.0) ng/mL AST (17-59) U/L Lactate Dehydrogenase (313-618) U/L Troponin I 6.590 H* (0.000-0.034) ng/mL C-Reactive Protein (<10.0) mg/L Total Protein (6.3-8.2) g/dL Albumin (3.5-5.0) g/dL 04/07/21 04/07/21 04/08/21 Range/Units 20:10 20:11 03:12 WBC (3.8-10.6) k/uL Plt Count (150-450) k/uL APTT 36.2 H (22.0-30.0) sec D-Dimer >34.10 H (<0.60) mg/L FEU Sodium (137-145) mmol/L BUN (9-20) mg/dL Glucose (74-99) mg/dL POC Glucose (mg/dL) 134 H (75-99) mg/dL Calcium (8.4-10.2) mg/dL Ferritin (22.0-322.0) ng/mL AST (17-59) U/L Lactate Dehydrogenase (313-618) U/L Troponin I (0.000-0.034) ng/mL C-Reactive Protein (<10.0) mg/L Total Protein (6.3-8.2) g/dL Albumin (3.5-5.0) g/dL 09/04/20 09/04/20 09/04/20 Range/Units 03:12 03:12 06:06 WBC 29.3 H (3.8-10.6) k/uL Plt Count 140 L (150-450) k/uL APTT (22.0-30.0) sec D-Dimer (<0.60) mg/L FEU Sodium 136 L (137-145) mmol/L BUN 39 H (9-20) mg/dL Glucose 120 H (74-99) mg/dL POC Glucose (mg/dL) 129 H (75-99) mg/dL Calcium 8.2 L (8.4-10.2) mg/dL Ferritin (22.0-322.0) ng/mL AST 71 H (17-59) U/L Lactate Dehydrogenase 3965 H (313-618) U/L Troponin I (0.000-0.034) ng/mL C-Reactive Protein 142.8 H (<10.0) mg/L Total Protein 5.8 L (6.3-8.2) g/dL Albumin 2.9 L (3.5-5.0) g/dL Microbiology - Last 24 Hours (Table) 09/02/20 23:00 Blood Culture - Preliminary Blood No Growth after 24 hours 09/02/20 22:45 Blood Culture - Preliminary Blood No Growth after 24 hours Assessment and Plan Plan: -Acute hypoxic respiratory failure: Secondary to Covid 19. Patient was started on Decadron, vitamins. Patient is out of the window for Remdesivir, he will receive Tocilizumab and 1 unit of convalescent plasma. -Lactic acidosis secondary to intravascular volume depletion dehydration patient will be started and continued on IV fluids -Hypertension -Rule out PE -Elevated troponins cannot rule out that non-ST elevation myocardial infarction cardiology was consulted echocardiogram was done which did not show any significant abnormality patient troponin trend is upwards, patient presently is started on IV heparin. elevated troponins are believed to be secondary to type II PR secondary to hypoxemia -GI prophylaxis with Pepcid
[2020-09-04 12:06] LABS: Glucose,Whole Blood 112 mg/dL (75-99)
--- NOTE | 2020-09-04 13:08 | P.PN ---
Subjective Progress Note Date: 09/04/20 Principal diagnosis: Hypoxemic respiratory failure. 54-year-old white male patient who is an ex smoker, carries [id number] smoking history quit smoking 1 year ago in May, history of hypertension and gout who sees Dr. Contreras, presented to the emergency department on 08/02/2020 with complaints of worsening shortness of breath, cough, and patient was diagnosed with Covid 19 one week ago, was tested at [facility] per Dr. Contreras's order. 2 weeks ago he had symptoms of flulike illness, sore throat, shortness of breath, weakness, muscle aches which progressively became worse, and patient developed worsening shortness of breath and had difficulty breathing and ambulating at home. He was placed on Decadron [address] Contreras and he has 1-1/2 days worth left of it. Chest x-ray in the emergency department showed bilateral interstitial pneumonia. White blood cell count was 33.1, d-dimer was greater than 35.2, CO2 is 16, the rest of electrolytes were unremarkable, B1 is 35 creatinine is 1.04, plasma lactic acid is 4.5, patient was given IV fluids and lactic acid came down to 1.8, total bilirubin was 1.6, AST is 107, ALT is 48, alkaline phosphatase is 114, LDH is 5924, first troponin was 4.190, and the second one went up to 6.960. CRP is 180.3, pro-calcitonin level is 0.33, urinalysis showed 1+ protein, but no definite sign of infection, pulse ox is 86 on room air, patient has significant shortness of breath, and was placed on BiPAP support, currently with pressures of 12/6, and FiO2 of 100% on which he remains this morning, he is afebrile, hemodynamically he is stable, she was started on IV Decadron, we'll start him on intermediate dose of Lovenox 50 mg every 12 hours, CTA chest shows no evidence of pulmonary embolism, and extensive pulmonary infiltrates that are mostly interstitial consistent with severe interstitial pneumonia. Progress note dated 09/04/2020. 54-year-old male, admitted with a diagnosis of COVID 19 pneumonitis. Currently, he is on BiPAP at 12/6 and 90%. FiO2 will be dropped down to 80%. In addition, he is getting saline at 75 mL an hour. The patient's doing better today. He states that he feels better. He still short of breath with activity. I did tell him today to make sure he moves around in bed when he is laying in bed. White count 29.3, hemoglobin 14.6, hematocrit 42.7, platelet count 140,000. D- dimer greater than 34.10. Sodium 136, potassium 5.1, chlorides 105, CO2 25, anion gap 6, BUN 39, creatinine 0.9. LDH is 3965. C-reactive protein 143. Chest x-ray shows a worsening pattern of bilateral airspace disease. Objective - Vital Signs Vital signs: Vital Signs Temp 98.1 F 09/04/20 11:52 Pulse 45 L 09/04/20 11:52 Resp 24 09/04/20 11:52 BP 125/70 09/04/20 11:52 Pulse Ox 95 09/04/20 11:52 Intake & Output 09/03/20 09/04/20 09/04/20 18:59 06:59 18:59 Intake Total 30.321 167.381 0 Output Total 504 202 800 Balance -473.679 -34.619 -800 Weight 97.522 kg 94.5 kg Intake: Intake, IV Titration 30.321 167.381 Amount Heparin Sod,Pork in 0.45% 30.321 167.381 NaCl 25,000 unit In 0.45 % NaCl 1 250ml.bag @ 10. 25 UNITS/KG/HR 9.996 mls/ hr IV .Q24H [facility] Rx#: [id number] Oral 0 Output: Urine 503 200 800 Stool 1 2 Other: Voiding Method Urinal Urinal # Bowel Movements 0 - Exam No acute distress, oriented 3. BiPAP mask in place. No evidence of conversational dyspnea or use of accessory muscles. HEENT examination is grossly unremarkable. Neck supple. Full range of motion. No adenopathy thyromegaly or neck vein distention. Cardiovascular examination reveals regular rhythm rate. S1-S2 normal. No S3 or S4. No discernible murmur noted. Heart rate 45 bpm. Lungs reveal diffuse bilateral crackles and diffuse bilateral rhonchi. No wheezes. Breath sounds equal bilaterally. He coughs on deep inspiration. Abdomen soft bowel sounds are heard. No masses or tenderness. Extremities are intact. No cyanosis clubbing or edema. Skin is without rash or lesion. Neurologic examination is brief but nonfocal. - Labs CBC & Chem 7: 09/04/20 03:12 09/04/20 03:12 Labs: Abnormal Lab Results - Last 24 Hours (Table) 09/02/20 09/03/20 09/03/20 Range/Units 21:41 11:59 14:43 WBC (3.8-10.6) k/uL Plt Count (150-450) k/uL APTT 20.4 L (22.0-30.0) sec D-Dimer (<0.60) mg/L FEU Sodium (137-145) mmol/L BUN (9-20) mg/dL Glucose (74-99) mg/dL POC Glucose (mg/dL) (75-99) mg/dL Calcium (8.4-10.2) mg/dL Ferritin 2033.0 H (22.0-322.0) ng/mL AST (17-59) U/L Lactate Dehydrogenase (313-618) U/L Troponin I 6.590 H* (0.000-0.034) ng/mL C-Reactive Protein (<10.0) mg/L Total Protein (6.3-8.2) g/dL Albumin (3.5-5.0) g/dL 09/03/20 09/03/20 09/04/20 Range/Units 20:10 20:11 03:12 WBC (3.8-10.6) k/uL Plt Count (150-450) k/uL APTT 36.2 H (22.0-30.0) sec D-Dimer >34.10 H (<0.60) mg/L FEU Sodium (137-145) mmol/L BUN (9-20) mg/dL Glucose (74-99) mg/dL POC Glucose (mg/dL) 134 H (75-99) mg/dL Calcium (8.4-10.2) mg/dL Ferritin (22.0-322.0) ng/mL AST (17-59) U/L Lactate Dehydrogenase (313-618) U/L Troponin I (0.000-0.034) ng/mL C-Reactive Protein (<10.0) mg/L Total Protein (6.3-8.2) g/dL Albumin (3.5-5.0) g/dL 09/04/20 09/04/20 09/04/20 Range/Units 03:12 03:12 06:06 WBC 29.3 H (3.8-10.6) k/uL Plt Count 140 L (150-450) k/uL APTT (22.0-30.0) sec D-Dimer (<0.60) mg/L FEU Sodium 136 L (137-145) mmol/L BUN 39 H (9-20) mg/dL Glucose 120 H (74-99) mg/dL POC Glucose (mg/dL) 129 H (75-99) mg/dL Calcium 8.2 L (8.4-10.2) mg/dL Ferritin (22.0-322.0) ng/mL AST 71 H (17-59) U/L Lactate Dehydrogenase 3965 H (313-618) U/L Troponin I (0.000-0.034) ng/mL C-Reactive Protein 142.8 H (<10.0) mg/L Total Protein 5.8 L (6.3-8.2) g/dL Albumin 2.9 L (3.5-5.0) g/dL 09/04/20 09/04/20 Range/Units 12:01 12:26 WBC (3.8-10.6) k/uL Plt Count (150-450) k/uL APTT 30.9 H (22.0-30.0) sec D-Dimer (<0.60) mg/L FEU Sodium (137-145) mmol/L BUN (9-20) mg/dL Glucose (74-99) mg/dL POC Glucose (mg/dL) 112 H (75-99) mg/dL Calcium (8.4-10.2) mg/dL Ferritin (22.0-322.0) ng/mL AST (17-59) U/L Lactate Dehydrogenase (313-618) U/L Troponin I (0.000-0.034) ng/mL C-Reactive Protein (<10.0) mg/L Total Protein (6.3-8.2) g/dL Albumin (3.5-5.0) g/dL Microbiology - Last 24 Hours (Table) 09/02/20 23:00 Blood Culture - Preliminary Blood No Growth after 24 hours 09/02/20 22:45 Blood Culture - Preliminary Blood No Growth after 24 hours Assessment and Plan Assessment: Acute hypoxemic respiratory failure secondary to COVID 19 pneumonitis. History of hypertension. Former tobacco use. Mildly elevated troponins, without chest pain. Lactic acidosis. No computed tomography scan evidence of pulmonary embolism. Plan: Plan dated 09/04/2020. The patient is doing a bit better today. We are starting to wean down his FiO2. Additional recommendations and suggestions are forthcoming. The patient was outside the window for REM. The patient is currently on Lovenox, and Decadron. Additional recommendations and suggestions are forthcoming. We'll continue to follow. Prognosis is guarded. Time with Patient: Less than 30
--- NOTE | 2020-09-04 13:50 | P.PN ---
Subjective This is a 54-year-old gentleman with no significant past medical history who presented to the emergency department complaining of shortness of breath. he does not follow with a cardiolgoist We consulted to see the patient because of abnormal cardiac enzymes. The patient stated that he was short of breath for the last few weeks. About a week ago he was tested positive for cough 19 infection. 09/04/2020: Patient seen and examined at bedside. States his breathing is slightly improved. He denies chest pain, palpitations, diaphoresis, nausea. He appears comfortable. Continues to be on BiPAP. Trponin trend 4.1-->6.9-->6.5. BP 124/78, heart rate in the 50s, maintaining oxygen saturation on BiPAP. Laboratory data reviewed, sodium 136, potassium 5.1, serum creatinine 0.90, WBC 29, hemoglobin 14.6, platelets 140, d-dimer >34.10. Echocardiogram revealed EF 55-60%, trace MR, trace TR. Current cardiac medications include on heparin drip, aspirinaily, atorvastatin 80 mg daily, PHYSICAL EXAMINATION CONSTITUTIONAL: No apparent distress. NEUROLOGIC EXAMINATION: Patient is awake, alert and oriented x3. Thorough physical examination not completed due to covid-19 infection ASSESSMENT Covid-19 Acute hypoxic respiratory failure- most likely due to covid-19 infection Elevated troponin- most likely related to hypoxemia and covid-19 PLAN Decrease metoprolol to 12.5mg BID Continue aspirin and statin Continue amlodipine Discontinue heparin drip Nurse Practitioner note has been reviewed, I agree with a documented findings and plan of care. Patient was seen and examined. Objective - Vital Signs Vital signs: Vital Signs Temp 98.1 F 09/04/20 07:30 Pulse 75 09/04/20 07:30 Resp 28 H 09/04/20 07:30 BP 142/68 09/04/20 07:30 Pulse Ox 93 L 09/04/20 07:30 Intake & Output 09/03/20 09/04/20 09/04/20 18:59 06:59 18:59 Intake Total 30.321 167.381 Output Total 504 202 Balance -473.679 -34.619 Weight 97.522 kg 94.5 kg Intake: Intake, IV Titration 30.321 167.381 Amount Heparin Sod,Pork in 0.45% 30.321 167.381 NaCl 25,000 unit In 0.45 % NaCl 1 250ml.bag @ 10. 25 UNITS/KG/HR 9.996 mls/ hr IV .Q24H [facility] Rx#: [id number] Output: Urine 503 200 Stool 1 2 Other: Voiding Method Urinal Urinal - Labs CBC & Chem 7: 09/04/20 03:12 09/04/20 03:12 Labs: Abnormal Lab Results - Last 24 Hours (Table) 09/02/20 09/02/20 09/03/20 Range/Units 21:41 21:41 08:12 WBC (3.8-10.6) k/uL Plt Count (150-450) k/uL APTT (22.0-30.0) sec D-Dimer (<0.60) mg/L FEU Sodium (137-145) mmol/L BUN (9-20) mg/dL Glucose (74-99) mg/dL POC Glucose (mg/dL) (75-99) mg/dL Calcium (8.4-10.2) mg/dL Ferritin 2033.0 H (22.0-322.0) ng/mL AST (17-59) U/L Lactate Dehydrogenase (313-618) U/L Troponin I 6.960 H* (0.000-0.034) ng/mL C-Reactive Protein (<10.0) mg/L Total Protein (6.3-8.2) g/dL Albumin (3.5-5.0) g/dL Procalcitonin 0.33 H (0.02-0.09) ng/mL Urine Protein (Negative) Amorphous Sediment (None) /hpf Hyaline Casts (0-2) /lpf Urine Mucus (None) /hpf 09/03/20 09/03/20 09/03/20 Range/Units 09:26 11:59 14:43 WBC (3.8-10.6) k/uL Plt Count (150-450) k/uL APTT 20.4 L (22.0-30.0) sec D-Dimer (<0.60) mg/L FEU Sodium (137-145) mmol/L BUN (9-20) mg/dL Glucose (74-99) mg/dL POC Glucose (mg/dL) (75-99) mg/dL Calcium (8.4-10.2) mg/dL Ferritin (22.0-322.0) ng/mL AST (17-59) U/L Lactate Dehydrogenase (313-618) U/L Troponin I 6.590 H* (0.000-0.034) ng/mL C-Reactive Protein (<10.0) mg/L Total Protein (6.3-8.2) g/dL Albumin (3.5-5.0) g/dL Procalcitonin (0.02-0.09) ng/mL Urine Protein 1+ H (Negative) Amorphous Sediment Occasional H (None) /hpf Hyaline Casts 4 H (0-2) /lpf Urine Mucus Few H (None) /hpf 09/03/20 09/03/20 09/04/20 Range/Units 20:10 20:11 03:12 WBC (3.8-10.6) k/uL Plt Count (150-450) k/uL APTT 36.2 H (22.0-30.0) sec D-Dimer >34.10 H (<0.60) mg/L FEU Sodium (137-145) mmol/L BUN (9-20) mg/dL Glucose (74-99) mg/dL POC Glucose (mg/dL) 134 H (75-99) mg/dL Calcium (8.4-10.2) mg/dL Ferritin (22.0-322.0) ng/mL AST (17-59) U/L Lactate Dehydrogenase (313-618) U/L Troponin I (0.000-0.034) ng/mL C-Reactive Protein (<10.0) mg/L Total Protein (6.3-8.2) g/dL Albumin (3.5-5.0) g/dL Procalcitonin (0.02-0.09) ng/mL Urine Protein (Negative) Amorphous Sediment (None) /hpf Hyaline Casts (0-2) /lpf Urine Mucus (None) /hpf 09/04/20 09/04/20 09/04/20 Range/Units 03:12 03:12 06:06 WBC 29.3 H (3.8-10.6) k/uL Plt Count 140 L (150-450) k/uL APTT (22.0-30.0) sec D-Dimer (<0.60) mg/L FEU Sodium 136 L (137-145) mmol/L BUN 39 H (9-20) mg/dL Glucose 120 H (74-99) mg/dL POC Glucose (mg/dL) 129 H (75-99) mg/dL Calcium 8.2 L (8.4-10.2) mg/dL Ferritin (22.0-322.0) ng/mL AST 71 H (17-59) U/L Lactate Dehydrogenase 3965 H (313-618) U/L Troponin I (0.000-0.034) ng/mL C-Reactive Protein 142.8 H (<10.0) mg/L Total Protein 5.8 L (6.3-8.2) g/dL Albumin 2.9 L (3.5-5.0) g/dL Procalcitonin (0.02-0.09) ng/mL Urine Protein (Negative) Amorphous Sediment (None) /hpf Hyaline Casts (0-2) /lpf Urine Mucus (None) /hpf Microbiology - Last 24 Hours (Table) 09/02/20 23:00 Blood Culture - Preliminary Blood No Growth after 24 hours 09/02/20 22:45 Blood Culture - Preliminary Blood No Growth after 24 hours
[2020-09-04] MEDS: HEPARIN SOD,PORK IN 0.45% NACL 25,000 UNIT in 0.45% NACL 1 250ML.BAG IV SCH (14:37)
[2020-09-04 16:33] LABS: Glucose,Whole Blood 109 mg/dL (75-99)
[2020-09-04] MEDS: PROMETHAZINE HCL 6.25 MG/5 ML CUP PO PRN (18:05)
[2020-09-04] MEDS: METOPROLOL TARTRATE 12.5 MG TAB PO SCH (20:17)
[2020-09-04 20:21] LABS: Glucose,Whole Blood 97 mg/dL (75-99)
[2020-09-05] MEDS: ALBUTEROL HFA INHALER INHALATION SCH ×8 (03:25→23:54)
[2020-09-05 05:44] LABS: Glucose,Whole Blood 92 mg/dL (75-99)
[2020-09-05] MEDS: SODIUM CHLORIDE 0.9% 1,000 ML IV SCH ×2 (05:59→07:45)
[2020-09-05] MEDS: FAMOTIDINE 20 MG TAB PO SCH ×2 (07:44→20:34)
[2020-09-05] MEDS: ASPIRIN 81 MG PO SCH (07:44)
[2020-09-05] MEDS: DEXAMETHASONE SOD PHOSPHATE 10 MG/ML 1 ML VIAL IV SCH (07:44)
[2020-09-05] MEDS: CHOLECALCIFEROL 25 MCG (1000 IU) TABLET PO SCH (07:44)
[2020-09-05] MEDS: METOPROLOL TARTRATE 12.5 MG TAB PO SCH ×2 (07:45→20:33)
[2020-09-05] MEDS: amLODIPine 10 MG TAB PO SCH (07:45)
[2020-09-05] MEDS: ASCORBIC ACID 500 MG TAB PO SCH ×2 (07:45→20:34)
[2020-09-05] MEDS: ZINC SULFATE 220 MG CAP PO SCH (07:45)
[2020-09-05] MEDS: allopurinoL 300 MG TAB PO SCH (07:45)
[2020-09-05] MEDS: ATORVASTATIN 80 MG TAB PO SCH (07:45)
[2020-09-05 11:34] LABS: Glucose,Whole Blood 131 mg/dL (75-99)
--- NOTE | 2020-09-05 13:08 | P.PN ---
Subjective This is a 54-year-old gentleman with no significant past medical history who presented to the emergency department complaining of shortness of breath. he does not follow with a cardiolgoist We consulted to see the patient because of abnormal cardiac enzymes. The patient stated that he was short of breath for the last few weeks. About a week ago he was tested positive for cough 19 infection. 09/04/2020: Patient seen and examined at bedside. States his breathing is slightly improved. He denies chest pain, palpitations, diaphoresis, nausea. He appears comfortable. Continues to be on BiPAP. Troponin trend 4.1-->6.9-->6.5. BP 124/78, heart rate in the 50s, maintaining oxygen saturation on BiPAP. Laboratory data reviewed, sodium 136, potassium 5.1, serum creatinine 0.90, WBC 29, hemoglobin 14.6, platelets 140, d-dimer >34.10. Echocardiogram revealed EF 55-60%, trace MR, trace TR. Current cardiac medications include on heparin drip, aspirin daily, atorvastatin 80 mg daily. 09/05/2020: Patient see and examined at bedside. Patient denies any chest pain, diaphoresis, palpitations. BP 135/69 HR 50-60s afebrile, maintaining oxygen saturations 92%, continues to need BiPAP. Currently being maintained on amlodipine 10mg daily, metoprolol 12.5mg BID, Aspirin 81mg daily, atorvastatin 80mg daily PHYSICAL EXAMINATION Vitals: reviewed CONSTITUTIONAL: No apparent distress. NEUROLOGIC EXAMINATION: Patient is awake, alert and oriented x3. Thorough physical examination not completed due to covid-19 infection ASSESSMENT Covid-19 Acute hypoxic respiratory failure- most likely due to covid-19 infection Elevated troponin- most likely related to hypoxemia and covid-19. Echocardiogram revealed EF 55-60%, trace MR, trace TR. PLAN Continue current medical therapy with amlodipine 10mg daily, metoprolol 12.5mg BID, Aspirin 81mg daily, atorvastatin 80mg daily If patient develops chest pain, or worsening symptoms, maybe consider outpatient vs inpatient cardiac testing vs invasive cardiac catheterization - but not at this time. No further cardiac testing at this time Nurse Practitioner note has been reviewed, I agree with a documented findings and plan of care. Patient was seen and examined. Objective - Vital Signs Vital signs: Vital Signs Temp 97.5 F L 09/04/20 16:00 Pulse 48 L 09/04/20 16:00 Resp 28 H 09/04/20 16:00 BP 125/68 09/04/20 16:00 Pulse Ox 94 L 09/04/20 16:00 Intake & Output 09/04/20 09/04/20 09/05/20 06:59 18:59 06:59 Intake Total 462.609 9231 Output Total 202 1600 Balance -34.619 -97 Weight 94.5 kg Intake: Intake, IV Titration 167.381 900 Amount Heparin Sod,Pork in 0.45% 167.381 NaCl 25,000 unit In 0.45 % NaCl 1 250ml.bag @ 10. 25 UNITS/KG/HR 9.996 mls/ hr IV .Q24H [facility] Rx#: [id number] Sodium Chloride 0.9% 1, 900 000 ml @ 75 mls/hr IV . [id number] [facility] Rx#:[id number] Oral 237 Blood Product 366 Ffp Convalescent Plasma 366 Cpd Unit [id number] Output: Urine 200 1600 Stool 2 Other: Voiding Method Urinal Urinal # Voids 3 # Bowel Movements 0 - Labs CBC & Chem 7: 09/04/20 03:12 09/04/20 03:12 Labs: Abnormal Lab Results - Last 24 Hours (Table) 09/02/20 09/03/20 09/03/20 Range/Units 21:41 20:10 20:11 WBC (3.8-10.6) k/uL Plt Count (150-450) k/uL APTT 36.2 H (22.0-30.0) sec D-Dimer (<0.60) mg/L FEU Sodium (137-145) mmol/L BUN (9-20) mg/dL Glucose (74-99) mg/dL POC Glucose (mg/dL) 134 H (75-99) mg/dL Calcium (8.4-10.2) mg/dL Ferritin 2033.0 H (22.0-322.0) ng/mL AST (17-59) U/L Lactate Dehydrogenase (313-618) U/L C-Reactive Protein (<10.0) mg/L Total Protein (6.3-8.2) g/dL Albumin (3.5-5.0) g/dL 09/04/20 09/04/20 09/04/20 Range/Units 03:12 03:12 03:12 WBC 29.3 H (3.8-10.6) k/uL Plt Count 140 L (150-450) k/uL APTT (22.0-30.0) sec D-Dimer >34.10 H (<0.60) mg/L FEU Sodium 136 L (137-145) mmol/L BUN 39 H (9-20) mg/dL Glucose 120 H (74-99) mg/dL POC Glucose (mg/dL) (75-99) mg/dL Calcium 8.2 L (8.4-10.2) mg/dL Ferritin (22.0-322.0) ng/mL AST 71 H (17-59) U/L Lactate Dehydrogenase 3965 H (313-618) U/L C-Reactive Protein 142.8 H (<10.0) mg/L Total Protein 5.8 L (6.3-8.2) g/dL Albumin 2.9 L (3.5-5.0) g/dL 09/04/20 09/04/20 09/04/20 Range/Units 06:06 12:01 12:26 WBC (3.8-10.6) k/uL Plt Count (150-450) k/uL APTT 30.9 H (22.0-30.0) sec D-Dimer (<0.60) mg/L FEU Sodium (137-145) mmol/L BUN (9-20) mg/dL Glucose (74-99) mg/dL POC Glucose (mg/dL) 129 H 112 H (75-99) mg/dL Calcium (8.4-10.2) mg/dL Ferritin (22.0-322.0) ng/mL AST (17-59) U/L Lactate Dehydrogenase (313-618) U/L C-Reactive Protein (<10.0) mg/L Total Protein (6.3-8.2) g/dL Albumin (3.5-5.0) g/dL 09/04/20 Range/Units 16:27 WBC (3.8-10.6) k/uL Plt Count (150-450) k/uL APTT (22.0-30.0) sec D-Dimer (<0.60) mg/L FEU Sodium (137-145) mmol/L BUN (9-20) mg/dL Glucose (74-99) mg/dL POC Glucose (mg/dL) 109 H (75-99) mg/dL Calcium (8.4-10.2) mg/dL Ferritin (22.0-322.0) ng/mL AST (17-59) U/L Lactate Dehydrogenase (313-618) U/L C-Reactive Protein (<10.0) mg/L Total Protein (6.3-8.2) g/dL Albumin (3.5-5.0) g/dL Microbiology - Last 24 Hours (Table) 09/02/20 23:00 Blood Culture - Preliminary Blood No Growth after 24 hours 09/02/20 22:45 Blood Culture - Preliminary Blood No Growth after 24 hours
[2020-09-05] MEDS: PROMETHAZINE HCL 6.25 MG/5 ML CUP PO PRN ×2 (13:29→18:31)
--- NOTE | 2020-09-05 15:56 | P.PN ---
Subjective Patient is pleasant 54-year-old male came in with complaints of shortness of breath cough. Episodes of diarrhea nausea, generalized body aches and fevers at home patient was diagnosed with Covid 19 about a week ago patient's symptoms can you to get worse and patient is more short of breath because of which patient came to ER found to be hypoxic was started on IV fluids and patient has elevated inflammatory markers along with elevated troponin of 4.190 which of and up to 6.960 was started on IV heparin Decadron subsequently admitted. Patient had a CT of the chest which did not show any PE but did show extensive pulmonary infiltrates had an echocardiogram as well which did not show any significant abnormality. Cardiology and pulmonology were consulted. Patient is on heparin 50 twice a day which will be switched to anticoagulation those that is 90 twice a day testing elevation of troponin. 09/04/2020 Patient was pretty status is bit worse today patient is requiring BiPAP at this time. Patient is presently on IV heparin echo is being obtain from cardiology perspective because of elevated troponins and the cardiology believes and this is secondary to severe hypoxemia from Covid 19. Patient is not feeling well feeling bit worse. 09/05/2020 Patient is presently on BiPAP, he says is not doing well he is still short of br eath. Constitutional: Denied any fatigue denied any fever. Cardio vascular: denied any chest pain, palpitations Gastrointestinal denied any nausea vomiting Pulmonary: Presently on BiPAP is short of breath Neurologic denied any new focal deficits All inpatient medications were reviewed and appropriate changes in these medications as dictated in the interval history and assessment and plan. Objective - Vital Signs Vital signs: Vital Signs Temp 98.2 F 09/05/20 11:36 Pulse 65 09/05/20 11:36 Resp 22 09/05/20 11:36 BP 135/69 09/05/20 11:36 Pulse Ox 94 L 09/05/20 11:36 Intake & Output 09/04/20 09/05/20 09/05/20 18:59 06:59 18:59 Intake Total 1503 Output Total 1600 952 350 Balance -97 -952 -350 Weight 95 kg Intake: Intake, IV Titration 900 Amount Sodium Chloride 0.9% 1, 900 000 ml @ 75 mls/hr IV . [id number] [facility] Rx#:[id number] Oral 237 Blood Product 366 Ffp Convalescent Plasma 366 Cpd Unit [id number] Output: Urine 1600 950 350 Stool 2 Other: Voiding Method Urinal Urinal Urinal # Voids 3 # Bowel Movements 0 - Exam PHYSICAL EXAMINATION: GENERAL: The patient is alert and oriented x3, not in any acute distress. Well developed, well nourished. Mild respiratory distress on BiPAP HEENT: Pupils are round and equally reacting to light. EOMI. No scleral icterus. No conjunctival pallor. Normocephalic, atraumatic. No pharyngeal erythema. No t hyromegaly. CARDIOVASCULAR: S1 and S2 present. No murmurs, rubs, or gallops. PULMONARY: Chest is clear to auscultation, no wheezing or crackles. ABDOMEN: Soft, nontender, nondistended, normoactive bowel sounds. No palpable organomegaly. MUSCULOSKELETAL: No joint swelling or deformity. EXTREMITIES: No cyanosis, clubbing, or pedal edema. NEUROLOGICAL: Gross neurological examination did not reveal any focal deficits. SKIN: No rashes. - Labs CBC & Chem 7: 09/04/20 03:12 09/04/20 03:12 Labs: Abnormal Lab Results - Last 24 Hours (Table) 09/04/20 09/05/20 Range/Units 16:27 11:31 POC Glucose (mg/dL) 109 H 131 H (75-99) mg/dL Microbiology - Last 24 Hours (Table) 09/02/20 22:45 Blood Culture - Preliminary Blood No Growth after 48 hours 09/02/20 23:00 Blood Culture - Preliminary Blood No Growth after 48 hours Assessment and Plan Plan: -Acute hypoxic respiratory failure: Secondary to Covid 19. Patient was started on Decadron, vitamins. Patient is out of the window for Remdesivir, he received Tocilizumab and 1 unit of convalescent plasma., Patient is presently on BiPAP -Lactic acidosis secondary to intravascular volume depletion dehydration patient will be started and continued on IV fluids -Hypertension -Rule out PE -Elevated troponins cannot rule out that non-ST elevation myocardial infarction cardiology was consulted echocardiogram was done which did not show any significant abnormality patient troponin trend is upwards, patient presently is started on IV heparin. elevated troponins are believed to be secondary to type II CT secondary to hypoxemia -GI prophylaxis with Pepcid
--- NOTE | 2020-09-05 16:40 | P.PN ---
Subjective Progress Note Date: 09/05/20 Principal diagnosis: Hypoxemic respiratory failure. 54-year-old white male patient who is an ex smoker, carries [id number] smoking history quit smoking 1 year ago in May, history of hypertension and gout who sees Dr. Contreras, presented to the emergency department on 08/02/2020 with complaints of worsening shortness of breath, cough, and patient was diagnosed with Covid 19 one week ago, was tested at [facility] per Dr. Contreras's order. 2 weeks ago he had symptoms of flulike illness, sore throat, shortness of breath, weakness, muscle aches which progressively became worse, and patient developed worsening shortness of breath and had difficulty breathing and ambulating at home. He was placed on Decadron [address] Contreras and he has 1-1/2 days worth left of it. Chest x-ray in the emergency department showed bilateral interstitial pneumonia. White blood cell count was 33.1, d-dimer was greater than 35.2, CO2 is 16, the rest of electrolytes were unremarkable, B1 is 35 creatinine is 1.04, plasma lactic acid is 4.5, patient was given IV fluids and lactic acid came down to 1.8, total bilirubin was 1.6, AST is 107, ALT is 48, alkaline phosphatase is 114, LDH is 5924, first troponin was 4.190, and the second one went up to 6.960. CRP is 180.3, pro-calcitonin level is 0.33, urinalysis showed 1+ protein, but no definite sign of infection, pulse ox is 86 on room air, patient has significant shortness of breath, and was placed on BiPAP support, currently with pressures of 12/6, and FiO2 of 100% on which he remains this morning, he is afebrile, hemodynamically he is stable, she was started on IV Decadron, we'll start him on intermediate dose of Lovenox 50 mg every 12 hours, CTA chest shows no evidence of pulmonary embolism, and extensive pulmonary infiltrates that are mostly interstitial consistent with severe interstitial pneumonia. Progress note dated 09/04/2020. 54-year-old male, admitted with a diagnosis of COVID 19 pneumonitis. Currently, he is on BiPAP at 12/6 and 90%. FiO2 will be dropped down to 80%. In addition, he is getting saline at 75 mL an hour. The patient's doing better today. He states that he feels better. He still short of breath with activity. I did tell him today to make sure he moves around in bed when he is laying in bed. White count 29.3, hemoglobin 14.6, hematocrit 42.7, platelet count 140,000. D- dimer greater than 34.10. Sodium 136, potassium 5.1, chlorides 105, CO2 25, anion gap 6, BUN 39, creatinine 0.9. LDH is 3965. C-reactive protein 143. Chest x-ray shows a worsening pattern of bilateral airspace disease. Progress note dated 09/15/2020. 54-year-old male, admitted with a diagnosis of COVID 19 pneumonitis. He remains on BiPAP with an FiO2 of 80%. Settings included an IPAP 12, EPAP 6. The patient states that he feels a bit better. He is getting saline at 75 mL an hour. He feels like he is breathing is improved. He does know to move about in bed. No new laboratory data today. His most recent chest x-ray was from yesterday and was reviewed. The patient's on appropriate medications. Objective - Vital Signs Vital signs: Vital Signs Temp 98.2 F 09/05/20 11:36 Pulse 65 09/05/20 11:36 Resp 22 09/05/20 11:36 BP 135/69 09/05/20 11:36 Pulse Ox 94 L 09/05/20 11:36 Intake & Output 09/04/20 09/05/20 09/05/20 18:59 06:59 18:59 Intake Total 1503 Output Total 1600 952 600 Balance -97 -952 -600 Weight 95 kg Intake: Intake, IV Titration 900 Amount Sodium Chloride 0.9% 1, 900 000 ml @ 75 mls/hr IV . [id number] [facility] Rx#:[id number] Oral 237 Blood Product 366 Ffp Convalescent Plasma 366 Cpd Unit [id number] Output: Urine 1600 950 600 Stool 2 Other: Voiding Method Urinal Urinal Urinal # Voids 3 # Bowel Movements 0 - Exam No acute distress, oriented 3. BiPAP mask in place. No evidence of conversational dyspnea or use of accessory muscles. HEENT examination is grossly unremarkable. Neck supple. Full range of motion. No adenopathy thyromegaly or neck vein distention. Cardiovascular examination reveals regular rhythm rate. S1-S2 normal. No S3 or S4. No discernible murmur noted. Heart rate 65 bpm. Lungs reveal diffuse bilateral crackles and diffuse bilateral rhonchi. No wheezes. Breath sounds equal bilaterally. He coughs on deep inspiration. Exam is essentially unchanged. Abdomen soft bowel sounds are heard. No masses or tenderness. Extremities are intact. No cyanosis clubbing or edema. Skin is without rash or lesion. Neurologic examination is brief but nonfocal. - Labs CBC & Chem 7: 09/04/20 03:12 09/04/20 03:12 Labs: Abnormal Lab Results - Last 24 Hours (Table) 09/05/20 Range/Units 11:31 POC Glucose (mg/dL) 131 H (75-99) mg/dL Microbiology - Last 24 Hours (Table) 09/02/20 22:45 Blood Culture - Preliminary Blood No Growth after 48 hours 09/02/20 23:00 Blood Culture - Preliminary Blood No Growth after 48 hours Assessment and Plan Assessment: Acute hypoxemic respiratory failure secondary to COVID 19 pneumonitis. History of hypertension. Former tobacco use. Mildly elevated troponins, without chest pain. Lactic acidosis. No computed tomography scan evidence of pulmonary embolism. Plan: Plan dated 09/04/2020. The patient is doing a bit better today. We are starting to wean down his FiO2. Additional recommendations and suggestions are forthcoming. The patient was outside the window for REM. The patient is currently on Lovenox, and Decadron. Additional recommendations and suggestions are forthcoming. We'll continue to follow. Prognosis is guarded. Plan dated 09/05/2020. Clinically, the patient feels a bit better today. He seems to be less short of breath. He is on BiPAP at 12/6 and 80%. The patient's on appropriate medi cations. I did tell him to move about all he is in bed. Right side down, left side down, supine, and prone. The patient is getting the appropriate vitamins, as well as Lovenox and Decadron. He was outside the window for REM. We will continue to follow and make recommendations were appropriate. Time with Patient: Less than 30
[2020-09-05 16:41] LABS: Glucose,Whole Blood 124 mg/dL (75-99)
[2020-09-05 20:02] LABS: Glucose,Whole Blood 115 mg/dL (75-99)
[2020-09-05] MEDS: ENOXAPARIN 40 MG/0.4 ML SYRINGE SQ SCH (20:34)
[2020-09-05] MEDS: BENZONATATE 100 MG CAP PO PRN (20:34)
[2020-09-06] MEDS: PROMETHAZINE HCL 6.25 MG/5 ML CUP PO PRN (02:07)
[2020-09-06] MEDS: guaiFENesin-Coden 100-10MG/5ML 10 ML CUP PO PRN ×2 (02:38→10:52)
[2020-09-06 06:10] LABS: Glucose,Whole Blood 111 mg/dL (75-99)
[2020-09-06] MEDS: ALBUTEROL HFA INHALER INHALATION SCH ×5 (08:34→21:03)
[2020-09-06] MEDS: allopurinoL 300 MG TAB PO SCH (09:04)
[2020-09-06] MEDS: ZINC SULFATE 220 MG CAP PO SCH (09:04)
[2020-09-06] MEDS: amLODIPine 10 MG TAB PO SCH (09:04)
[2020-09-06] MEDS: ASCORBIC ACID 500 MG TAB PO SCH ×2 (09:04→21:18)
[2020-09-06] MEDS: FAMOTIDINE 20 MG TAB PO SCH ×2 (09:04→21:18)
[2020-09-06] MEDS: METOPROLOL TARTRATE 12.5 MG TAB PO SCH ×2 (09:04→21:18)
[2020-09-06] MEDS: ATORVASTATIN 80 MG TAB PO SCH (09:05)
[2020-09-06] MEDS: DEXAMETHASONE SOD PHOSPHATE 10 MG/ML 1 ML VIAL IV SCH (09:05)
[2020-09-06] MEDS: ENOXAPARIN 40 MG/0.4 ML SYRINGE SQ SCH ×2 (09:05→21:18)
[2020-09-06] MEDS: CHOLECALCIFEROL 25 MCG (1000 IU) TABLET PO SCH (09:05)
[2020-09-06] MEDS: ASPIRIN 81 MG PO SCH (09:05)
[2020-09-06 09:33] LABS: ALT 39 U/L (4-49); AST 80 U/L (17-59); African American GFR (CKD) >90 (>60 ml/min/1.73 sqM); Albumin 2.9 g/dL (3.5-5.0); Alkaline Phosphatase 205 U/L (38-126); Anion Gap 6 mmol/L; Blood Urea Nitrogen 34 mg/dL (9-20); Calcium 8.1 mg/dL (8.4-10.2); Carbon Dioxide 20 mmol/L (22-30); Chloride 109 mmol/L (98-107); Glucose 102 mg/dL (74-99); Non-African American GFR(CKD) >90 (>60 ml/min/1.73 sqM); Potassium 4.9 mmol/L (3.5-5.1); Sodium 135 mmol/L (137-145); Total Bilirubin 0.9 mg/dL (0.2-1.3); Total Protein 5.6 g/dL (6.3-8.2)
[2020-09-06 10:08] LABS: HCT 43.9 % (39.0-53.0); MCH 30.6 pg (25.0-35.0); MCHC 34.1 g/dL (31.0-37.0); MCV 89.8 fL (80.0-100.0); Mean Platelet Volume 9.5; RBC 4.89 m/uL (4.30-5.90); WBC 19.3 k/uL (3.8-10.6)
--- NOTE | 2020-09-06 10:10 | P.PN ---
Subjective Progress Note Date: 09/06/20 This is a 54-year-old gentleman with past medical history significant for nicotine dependence, patient quit smoking approximately a year ago, history of hypertension, gout, presented to the emergency room on August 02 with symptoms of worsening shortness of breath with associated cough and was diagnosed with: 19 one week prior to admission. Because of symptoms of progressively worsening shortness of breath and weakness patient reports presented to the emergency room. His chest x-ray on presentation here did show bilateral interstitial pneumonia and the patient has tested positive for coated. Cardiology was initially requested to see the patient in consultation because of abnormality in troponin. He had an echocardiogram with Doppler study performed which revealed an ejection fraction of 55-60%. The abnormality in troponin is likely secondary to COVID 19 infection. Blood pressure this morning 134/70 with a heart rate in the 60s, respirations 20. He is on 90% on BiPAP satting 94%. Objective - Vital Signs Vital signs: Vital Signs Temp 97.9 F 09/06/20 08:00 Pulse 65 09/06/20 08:00 Resp 20 09/06/20 08:00 BP 134/76 09/06/20 08:00 Pulse Ox 94 L 09/06/20 08:00 Intake & Output 09/05/20 09/06/20 09/06/20 18:59 06:59 18:59 Intake Total 900 0 Output Total 1200 382 Balance -300 -382 0 Weight 97.5 kg Intake: Intake, IV Titration 900 Amount Sodium Chloride 0.9% 1, 900 000 ml @ 75 mls/hr IV . [id number] [facility] Rx#:[id number] Oral 0 Output: Urine 1200 380 Stool 2 Other: Voiding Method Urinal Urinal # Voids 2 - Exam GENERAL EXAM: Alert, very pleasant, 54-year-old white male, BiPAP support, with pressures of 12 6 and FiO2 of 100%, comfortable in no apparent distress. HEAD: Normocephalic/atraumatic. EYES: Normal reaction of pupils, equal size. Conjunctiva pink, sclera white. NOSE: Clear with pink turbinates. THROAT: No erythema or exudates. NECK: No masses, no JVD, no thyroid enlargement, no adenopathy. CHEST: No chest wall deformity. Symmetrical expansion. LUNGS: Equal air entry with no crackles, wheeze, rhonchi or dullness. CVS: Regular rate and rhythm, normal S1 and S2, no gallops, no murmurs, no rubs ABDOMEN: Soft, nontender. No hepatosplenomegaly, normal bowel sounds, no guarding or rigidity. EXTREMITIES: No clubbing, no edema, no cyanosis, 2+ pulses and upper and lower extremities. MUSCULOSKELETAL: Muscle strength and tone normal. SPINE: No scoliosis or deformity SKIN: No rashes CENTRAL NERVOUS SYSTEM: Alert and oriented -3. No focal deficits, tone is normal in all 4 extremities. PSYCHIATRIC: Alert and oriented -3. Appropriate affect. Intact judgment and insight. - Labs CBC & Chem 7: 09/04/20 03:12 09/06/20 08:33 Labs: Abnormal Lab Results - Last 24 Hours (Table) 09/05/20 09/05/20 09/05/20 Range/Units 11:31 16:36 20:01 Sodium (137-145) mmol/L Chloride (98-107) mmol/L Carbon Dioxide (22-30) mmol/L BUN (9-20) mg/dL Glucose (74-99) mg/dL POC Glucose (mg/dL) 131 H 124 H 115 H (75-99) mg/dL Calcium (8.4-10.2) mg/dL AST (17-59) U/L Alkaline Phosphatase (38-126) U/L Total Protein (6.3-8.2) g/dL Albumin (3.5-5.0) g/dL 09/06/20 09/06/20 Range/Units 06:07 08:33 Sodium 135 L (137-145) mmol/L Chloride 109 H (98-107) mmol/L Carbon Dioxide 20 L (22-30) mmol/L BUN 34 H (9-20) mg/dL Glucose 102 H (74-99) mg/dL POC Glucose (mg/dL) 111 H (75-99) mg/dL Calcium 8.1 L (8.4-10.2) mg/dL AST 80 H (17-59) U/L Alkaline Phosphatase 205 H (38-126) U/L Total Protein 5.6 L (6.3-8.2) g/dL Albumin 2.9 L (3.5-5.0) g/dL Microbiology - Last 24 Hours (Table) 09/02/20 23:00 Blood Culture - Preliminary Blood No Growth after 72 hours 09/02/20 22:45 Blood Culture - Preliminary Blood No Growth after 72 hours Assessment and Plan Plan: Assessment and plan #1. Acute hypoxic respiratory failure related to acute Covid 19 related pneumonia, with onset of symptoms 2 weeks ago, and positive outpatient test one week ago, was treated with oral Decadron on an outpatient basis with progression of symptoms and progression to hypoxic respiratory failure. #2. Lactic acid, but low pro-calcitonin level, could be related to dehydration, improved with hydration #3. Elevated d-dimer, and inflammatory markers related to the above, no CTA evidence of pulmonary embolism #4. Hypertension #5. Former smoker, in remission for 1 year, carries [id number] smoking history #6. Elevated troponins, no reports of chest pain, echocardiogram with Doppler study revealed a normal left ventricular systolic function. The abnormality in troponin was likely secondary to Covid 19 infection. Plan From cardiology's perspective, we'll continue this patient on his current medications. No further cardiac testing at this time. We will follow along with you on an as-needed basis only, please don't hesitate to call if you have any questions at all. DNP note has been reviewed, I agree with a documented findings and plan of care. Patient was seen and examined.
[2020-09-06] MEDS: BENZONATATE 100 MG CAP PO PRN (10:52)
--- NOTE | 2020-09-06 11:21 | P.PN ---
Subjective Patient is pleasant 54-year-old male came in with complaints of shortness of breath cough. Episodes of diarrhea nausea, generalized body aches and fevers at home patient was diagnosed with Covid 19 about a week ago patient's symptoms can you to get worse and patient is more short of breath because of which patient came to ER found to be hypoxic was started on IV fluids and patient has elevated inflammatory markers along with elevated troponin of 4.190 which of and up to 6.960 was started on IV heparin Decadron subsequently admitted. Patient had a CT of the chest which did not show any PE but did show extensive pulmonary infiltrates had an echocardiogram as well which did not show any significant abnormality. Cardiology and pulmonology were consulted. Patient is on heparin 50 twice a day which will be switched to anticoagulation those that is 90 twice a day testing elevation of troponin. 09/04/2020 Patient was pretty status is bit worse today patient is requiring BiPAP at this time. Patient is presently on IV heparin echo is being obtain from cardiology perspective because of elevated troponins and the cardiology believes and this is secondary to severe hypoxemia from Covid 19. Patient is not feeling well feeling bit worse. 09/05/2020 Patient is presently on BiPAP, he says is not doing well he is still short of br eath. 09/06/2020 patient remains on BiPAP easily gets short of breath still not feeling well still feels tired. Patient is on BiPAP with 90% FiO2. The patient is significant cough Constitutional: As mentioned in the interval history Cardio vascular: denied any chest pain, palpitations Gastrointestinal denied any nausea vomiting Pulmonary: Presently on BiPAP is short of breath Neurologic denied any new focal deficits All inpatient medications were reviewed and appropriate changes in these me dications as dictated in the interval history and assessment and plan. Objective - Vital Signs Vital signs: Vital Signs Temp 97.9 F 09/06/20 08:00 Pulse 65 09/06/20 08:00 Resp 20 09/06/20 08:00 BP 134/76 09/06/20 08:00 Pulse Ox 94 L 09/06/20 08:00 Intake & Output 09/05/20 09/06/20 09/06/20 18:59 06:59 18:59 Intake Total 900 0 Output Total 1200 382 300 Balance -300 -382 -300 Weight 97.5 kg Intake: Intake, IV Titration 900 Amount Sodium Chloride 0.9% 1, 900 000 ml @ 75 mls/hr IV . [id number] [facility] Rx#:[id number] Oral 0 Output: Urine 1200 380 300 Stool 2 Other: Voiding Method Urinal Urinal # Voids 2 - Exam PHYSICAL EXAMINATION: GENERAL: The patient is alert and oriented x3, not in any acute distress. Well developed, well nourished. Mild respiratory distress on BiPAP HEENT: Pupils are round and equally reacting to light. EOMI. No scleral icterus. No conjunctival pallor. Normocephalic, atraumatic. No pharyngeal erythema. No thyromegaly. CARDIOVASCULAR: S1 and S2 present. No murmurs, rubs, or gallops. PULMONARY: Chest is clear to auscultation, no wheezing or crackles. ABDOMEN: Soft, nontender, nondistended, normoactive bowel sounds. No palpable organomegaly. MUSCULOSKELETAL: No joint swelling or deformity. EXTREMITIES: No cyanosis, clubbing, or pedal edema. NEUROLOGICAL: Gross neurological examination did not reveal any focal deficits. SKIN: No rashes. - Labs CBC & Chem 7: 09/06/20 08:33 09/06/20 08:33 Labs: Abnormal Lab Results - Last 24 Hours (Table) 09/05/20 09/05/20 09/05/20 Range/Units 11:31 16:36 20:01 WBC (3.8-10.6) k/uL Sodium (137-145) mmol/L Chloride (98-107) mmol/L Carbon Dioxide (22-30) mmol/L BUN (9-20) mg/dL Glucose (74-99) mg/dL POC Glucose (mg/dL) 131 H 124 H 115 H (75-99) mg/dL Calcium (8.4-10.2) mg/dL AST (17-59) U/L Alkaline Phosphatase (38-126) U/L Total Protein (6.3-8.2) g/dL Albumin (3.5-5.0) g/dL 09/06/20 09/06/20 09/06/20 Range/Units 06:07 08:33 08:33 WBC 19.3 H (3.8-10.6) k/uL Sodium 135 L (137-145) mmol/L Chloride 109 H (98-107) mmol/L Carbon Dioxide 20 L (22-30) mmol/L BUN 34 H (9-20) mg/dL Glucose 102 H (74-99) mg/dL POC Glucose (mg/dL) 111 H (75-99) mg/dL Calcium 8.1 L (8.4-10.2) mg/dL AST 80 H (17-59) U/L Alkaline Phosphatase 205 H (38-126) U/L Total Protein 5.6 L (6.3-8.2) g/dL Albumin 2.9 L (3.5-5.0) g/dL Microbiology - Last 24 Hours (Table) 09/02/20 23:00 Blood Culture - Preliminary Blood No Growth after 72 hours 09/02/20 22:45 Blood Culture - Preliminary Blood No Growth after 72 hours Assessment and Plan Plan: -Acute hypoxic respiratory failure: Secondary to Covid 19. Patient was started on Decadron, vitamins. Patient is out of the window for Remdesivir, he received Tocilizumab and 1 unit of convalescent plasma., Patient is presently on BiPAP well desaturates pretty easily -Lactic acidosis secondary to intravascular volume depletion dehydration patient is being continued on IV fluids -Hypertension -Rule out PE -Elevated troponins cannot rule out that non-ST elevation myocardial infarction cardiology was consulted echocardiogram was done which did not show any significant abnormality patient troponin trend is upwards, patient presently is started on IV heparin. elevated troponins are believed to be secondary to type II OK secondary to hypoxemia -GI prophylaxis with Pepcid
[2020-09-06 11:40] LABS: Glucose,Whole Blood 159 mg/dL (75-99)
[2020-09-06 12:45] LABS: Platelet Count 92 k/uL (150-450)
--- NOTE | 2020-09-06 15:24 | P.PN ---
Subjective Progress Note Date: 09/06/20 Principal diagnosis: Hypoxemic respiratory failure. 54-year-old white male patient who is an ex smoker, carries [id number] smoking history quit smoking 1 year ago in May, history of hypertension and gout who sees Dr. Contreras, presented to the emergency department on 08/02/2020 with complaints of worsening shortness of breath, cough, and patient was diagnosed with Covid 19 one week ago, was tested at [facility] per Dr. Contreras's order. 2 weeks ago he had symptoms of flulike illness, sore throat, shortness of breath, weakness, muscle aches which progressively became worse, and patient developed worsening shortness of breath and had difficulty breathing and ambulating at home. He was placed on Decadron [address] Contreras and he has 1-1/2 days worth left of it. Chest x-ray in the emergency department showed bilateral interstitial pneumonia. White blood cell count was 33.1, d-dimer was greater than 35.2, CO2 is 16, the rest of electrolytes were unremarkable, B1 is 35 creatinine is 1.04, plasma lactic acid is 4.5, patient was given IV fluids and lactic acid came down to 1.8, total bilirubin was 1.6, AST is 107, ALT is 48, alkaline phosphatase is 114, LDH is 5924, first troponin was 4.190, and the second one went up to 6.960. CRP is 180.3, pro-calcitonin level is 0.33, urinalysis showed 1+ protein, but no definite sign of infection, pulse ox is 86 on room air, patient has significant shortness of breath, and was placed on BiPAP support, currently with pressures of 12/6, and FiO2 of 100% on which he remains this morning, he is afebrile, hemodynamically he is stable, she was started on IV Decadron, we'll start him on intermediate dose of Lovenox 50 mg every 12 hours, CTA chest shows no evidence of pulmonary embolism, and extensive pulmonary infiltrates that are mostly interstitial consistent with severe interstitial pneumonia. Progress note dated 09/04/2020. 54-year-old male, admitted with a diagnosis of COVID 19 pneumonitis. Currently, he is on BiPAP at 12/6 and 90%. FiO2 will be dropped down to 80%. In addition, he is getting saline at 75 mL an hour. The patient's doing better today. He states that he feels better. He still short of breath with activity. I did tell him today to make sure he moves around in bed when he is laying in bed. White count 29.3, hemoglobin 14.6, hematocrit 42.7, platelet count 140,000. D- dimer greater than 34.10. Sodium 136, potassium 5.1, chlorides 105, CO2 25, anion gap 6, BUN 39, creatinine 0.9. LDH is 3965. C-reactive protein 143. Chest x-ray shows a worsening pattern of bilateral airspace disease. Progress note dated 09/05/2020. 54-year-old male, admitted with a diagnosis of COVID 19 pneumonitis. He remains on BiPAP with an FiO2 of 80%. Settings included an IPAP 12, EPAP 6. The patient states that he feels a bit better. He is getting saline at 75 mL an hour. He feels like he is breathing is improved. He does know to move about in bed. No new laboratory data today. His most recent chest x-ray was from yesterday and was reviewed. The patient's on appropriate medications. Progress note dated 09/06/2020. 54-year-old male, seen again today. The patient is on BiPAP, settings of IPAP 12, EPAP 6, and 90%. He is also getting saline at 75 mL an hour. Was admitted with a diagnosis of acute hypoxemic respiratory failure secondary to COVID 19 pneumonia. The patient feels about the same. No better or no worse. He will have a chest x-ray tomorrow. Labs are reviewed. White count 19.3, hemoglobin 15, hematocrit 43.9, and platelet count 92,000. Sodium 135, potassium 4.9, chlorides 109, CO2 20, anion gap 6, BUN 34, and creatinine 0.92. There is no recent chest x-ray to review. Objective - Vital Signs Vital signs: Vital Signs Temp 98.3 F 09/06/20 12:00 Pulse 59 L 09/06/20 12:00 Resp 20 09/06/20 12:00 BP 125/78 09/06/20 12:00 Pulse Ox 90 L 09/06/20 12:00 Intake & Output 09/05/20 09/06/20 09/06/20 18:59 06:59 18:59 Intake Total 900 0 Output Total 1200 382 300 Balance -300 -382 -300 Weight 97.5 kg Intake: Intake, IV Titration 900 Amount Sodium Chloride 0.9% 1, 900 000 ml @ 75 mls/hr IV . [id number] [facility] Rx#:[id number] Oral 0 Output: Urine 1200 380 300 Stool 2 Other: Voiding Method Urinal Urinal # Voids 2 - Exam No acute distress, oriented 3. BiPAP mask in place. No evidence of conversational dyspnea or use of accessory muscles. HEENT examination is grossly unremarkable. Neck supple. Full range of motion. No adenopathy thyromegaly or neck vein distention. Cardiovascular examination reveals regular rhythm rate. S1-S2 normal. No S3 or S4. No discernible murmur noted. Heart rate 59 bpm. Lungs reveal coarse bilateral rhonchi, and scattered diffuse crackles. No wheezes are noted. Breath sounds are equal bilaterally. He does cough on deep inspiration. Abdomen soft bowel sounds are heard. No masses or tenderness. Extremities are intact. No cyanosis clubbing or edema. Skin is without rash or lesion. Neurologic examination is brief but nonfocal. - Labs CBC & Chem 7: 09/06/20 08:33 09/06/20 08:33 Labs: Abnormal Lab Results - Last 24 Hours (Table) 09/05/20 09/05/20 09/06/20 Range/Units 16:36 20:01 06:07 WBC (3.8-10.6) k/uL Plt Count (150-450) k/uL Sodium (137-145) mmol/L Chloride (98-107) mmol/L Carbon Dioxide (22-30) mmol/L BUN (9-20) mg/dL Glucose (74-99) mg/dL POC Glucose (mg/dL) 124 H 115 H 111 H (75-99) mg/dL Calcium (8.4-10.2) mg/dL AST (17-59) U/L Alkaline Phosphatase (38-126) U/L Total Protein (6.3-8.2) g/dL Albumin (3.5-5.0) g/dL 09/06/20 09/06/20 09/06/20 Range/Units 08:33 08:33 11:39 WBC 19.3 H (3.8-10.6) k/uL Plt Count 92 L (150-450) k/uL Sodium 135 L (137-145) mmol/L Chloride 109 H (98-107) mmol/L Carbon Dioxide 20 L (22-30) mmol/L BUN 34 H (9-20) mg/dL Glucose 102 H (74-99) mg/dL POC Glucose (mg/dL) 159 H (75-99) mg/dL Calcium 8.1 L (8.4-10.2) mg/dL AST 80 H (17-59) U/L Alkaline Phosphatase 205 H (38-126) U/L Total Protein 5.6 L (6.3-8.2) g/dL Albumin 2.9 L (3.5-5.0) g/dL Microbiology - Last 24 Hours (Table) 09/02/20 23:00 Blood Culture - Preliminary Blood No Growth after 72 hours 09/02/20 22:45 Blood Culture - Preliminary Blood No Growth after 72 hours Assessment and Plan Assessment: Acute hypoxemic respiratory failure secondary to COVID 19 pneumonitis. History of hypertension. Former tobacco use. Mildly elevated troponins, without chest pain. Lactic acidosis. No computed tomography scan evidence of pulmonary embolism. Plan: Plan dated 09/04/2020. The patient is doing a bit better today. We are starting to wean down his FiO2. Additional recommendations and suggestions are forthcoming. The patient was outside the window for REM. The patient is currently on Lovenox, and Decadron. Additional recommendations and suggestions are forthcoming. We'll continue to follow. Prognosis is guarded. Plan dated 09/05/2020. Clinically, the patient feels a bit better today. He seems to be less short of breath. He is on BiPAP at 12/6 and 80%. The patient's on appropriate medications. I did tell him to move about all he is in bed. Right side down, left side down, supine, and prone. The patient is getting the appropriate vitamins, as well as Lovenox and Decadron. He was outside the window for REM. We will continue to follow and make recommendations were appropriate. Plan dated 09/06/2020. His oxygen requiring has gone up by 10%. Yesterday, he was on 80%. He's feeling about the same, no better, and no worse. He is receiving all appropriate medications including Lovenox, Decadron, vitamins, etc. He was outside the window for REM. We will continue to follow him closely. His labs and medications are reviewed. He will have a chest x-ray in the morning. No additional recommendations are made. Prognosis is guarded. Time with Patient: Less than 30
[2020-09-06 16:39] LABS: Glucose,Whole Blood 133 mg/dL (75-99)
[2020-09-06] MEDS: SODIUM CHLORIDE 0.9% 1,000 ML IV SCH (17:39)
[2020-09-06 20:19] LABS: Glucose,Whole Blood 108 mg/dL (75-99)
[2020-09-06] MEDS: ALPRAZolam 0.5 MG TAB PO PRN (22:06)
[2020-09-07] MEDS: ALBUTEROL HFA INHALER INHALATION SCH ×6 (00:30→23:34)
[2020-09-07] MEDS: NITROGLYCERIN SL TABS 0.4 MG TAB SUBLINGUAL PRN ×3 (03:25→03:35)
[2020-09-07 06:16] LABS: Glucose,Whole Blood 98 mg/dL (75-99)
[2020-09-07] MEDS: ENOXAPARIN 40 MG/0.4 ML SYRINGE SQ SCH ×2 (08:23→20:43)
[2020-09-07] MEDS: DEXAMETHASONE SOD PHOSPHATE 10 MG/ML 1 ML VIAL IV SCH (08:24)
[2020-09-07] MEDS: BENZONATATE 100 MG CAP PO PRN (08:24)
[2020-09-07] MEDS: amLODIPine 10 MG TAB PO SCH (08:24)
[2020-09-07] MEDS: ATORVASTATIN 80 MG TAB PO SCH (08:24)
[2020-09-07] MEDS: METOPROLOL TARTRATE 12.5 MG TAB PO SCH ×2 (08:24→20:42)
[2020-09-07] MEDS: FAMOTIDINE 20 MG TAB PO SCH ×2 (08:24→20:43)
[2020-09-07] MEDS: ASPIRIN 81 MG PO SCH (08:24)
[2020-09-07] MEDS: ZINC SULFATE 220 MG CAP PO SCH (08:24)
[2020-09-07] MEDS: ASCORBIC ACID 500 MG TAB PO SCH ×2 (08:24→20:42)
[2020-09-07] MEDS: allopurinoL 300 MG TAB PO SCH (08:24)
[2020-09-07] MEDS: guaiFENesin-Coden 100-10MG/5ML 10 ML CUP PO PRN (08:25)
[2020-09-07] MEDS: SODIUM CHLORIDE 0.9% 1,000 ML IV SCH (08:37)
--- NOTE | 2020-09-07 10:02 | XR ---
EXAMINATION TYPE: XR chest 1V portable DATE OF EXAM: 09/07/2020 COMPARISON: 09/04/2020 INDICATION: Covid TECHNIQUE: Single frontal view of the chest is obtained. FINDINGS: The heart size is normal. The pulmonary vasculature is normal. Scattered infiltrates are present bilaterally greater at the left base. Findings appear stable. IMPRESSION: 1. Stable bilateral lung infiltrates can be compatible with atypical pneumonia.
[2020-09-07 11:41] LABS: Glucose,Whole Blood 123 mg/dL (75-99)
--- NOTE | 2020-09-07 12:35 | P.PN ---
Subjective Patient is pleasant 54-year-old male came in with complaints of shortness of breath cough. Episodes of diarrhea nausea, generalized body aches and fevers at home patient was diagnosed with Covid 19 about a week ago patient's symptoms can you to get worse and patient is more short of breath because of which patient came to ER found to be hypoxic was started on IV fluids and patient has elevated inflammatory markers along with elevated troponin of 4.190 which of and up to 6.960 was started on IV heparin Decadron subsequently admitted. Patient had a CT of the chest which did not show any PE but did show extensive pulmonary infiltrates had an echocardiogram as well which did not show any significant abnormality. Cardiology and pulmonology were consulted. Patient is on heparin 50 twice a day which will be switched to anticoagulation those that is 90 twice a day testing elevation of troponin. 09/04/2020 Patient was pretty status is bit worse today patient is requiring BiPAP at this time. Patient is presently on IV heparin echo is being obtain from cardiology perspective because of elevated troponins and the cardiology believes and this is secondary to severe hypoxemia from Covid 19. Patient is not feeling well feeling bit worse. 09/05/2020 Patient is presently on BiPAP, he says is not doing well he is still short of br eath. 09/06/2020 patient remains on BiPAP easily gets short of breath still not feeling well still feels tired. Patient is on BiPAP with 90% FiO2. The patient is significant cough 09/07/2020 Patient is presently on BiPAP 100% FiO2 no significant change in his respiratory status overall. Constitutional: As mentioned in the interval history Cardio vascular: denied any chest pain, palpitations Gastrointestinal denied any nausea vomiting Pulmonary: Presently on BiPAP is short of breath Neurologic denied any new focal deficits All inpatient medications were reviewed and appropriate changes in these medications as dictated in the interval history and assessment and plan. Objective - Vital Signs Vital signs: Vital Signs Temp 96.8 F L 09/07/20 08:00 Pulse 68 09/07/20 08:00 Resp 20 09/07/20 08:00 BP 127/71 09/07/20 08:00 Pulse Ox 88 L 09/07/20 08:00 Intake & Output 09/06/20 09/07/20 09/07/20 18:59 06:59 18:59 Intake Total 600 0 Output Total 875 401 275 Balance -275 -401 -275 Weight 94 kg Intake: Intake, IV Titration 600 Amount Sodium Chloride 0.9% 1, 600 000 ml @ 75 mls/hr IV . [id number] [facility] Rx#:[id number] Oral 0 0 Output: Urine 875 400 275 Stool 1 0 Other: Voiding Method Urinal # Voids 2 0 # Bowel Movements 0 - Exam PHYSICAL EXAMINATION: GENERAL: The patient is alert and oriented x3, not in any acute distress. Well developed, well nourished. Mild respiratory distress on BiPAP HEENT: Pupils are round and equally reacting to light. EOMI. No scleral icterus. No conjunctival pallor. Normocephalic, atraumatic. No pharyngeal erythema. No thyromegaly. CARDIOVASCULAR: S1 and S2 present. No murmurs, rubs, or gallops. PULMONARY: Chest is clear to auscultation, no wheezing or crackles. ABDOMEN: Soft, nontender, nondistended, normoactive bowel sounds. No palpable organomegaly. MUSCULOSKELETAL: No joint swelling or deformity. EXTREMITIES: No cyanosis, clubbing, or pedal edema. NEUROLOGICAL: Gross neurological examination did not reveal any focal deficits. SKIN: No rashes. - Labs CBC & Chem 7: 09/06/20 08:33 09/06/20 08:33 Labs: Abnormal Lab Results - Last 24 Hours (Table) 09/06/20 09/06/20 09/06/20 Range/Units 08:33 16:38 20:18 Plt Count 92 L (150-450) k/uL POC Glucose (mg/dL) 133 H 108 H (75-99) mg/dL 09/07/20 Range/Units 11:38 Plt Count (150-450) k/uL POC Glucose (mg/dL) 123 H (75-99) mg/dL Microbiology - Last 24 Hours (Table) 09/02/20 23:00 Blood Culture - Preliminary Blood No Growth after 96 hours 09/02/20 22:45 Blood Culture - Preliminary Blood No Growth after 96 hours Assessment and Plan Plan: -Acute hypoxic respiratory failure: Secondary to Covid 19. Patient was started on Decadron, vitamins. Patient is out of the window for Remdesivir, he received Tocilizumab and 1 unit of convalescent plasma., Patient is presently on BiPAP well desaturates pretty easily -Lactic acidosis secondary to intravascular volume depletion dehydration patient is being continued on IV fluids -Hypertension -Rule out PE -Elevated troponins cannot rule out that non-ST elevation myocardial infarction cardiology was consulted echocardiogram was done which did not show any significant abnormality patient troponin trend is upwards, patient presently is started on IV heparin. elevated troponins are believed to be secondary to type II CO secondary to hypoxemia -GI prophylaxis with Pepcid
[2020-09-07] MEDS: CHOLECALCIFEROL 25 MCG (1000 IU) TABLET PO SCH (13:11)
[2020-09-07] MEDS: ALPRAZolam 0.5 MG TAB PO PRN (13:16)
[2020-09-07 16:46] LABS: Glucose,Whole Blood 163 mg/dL (75-99)
--- NOTE | 2020-09-07 17:22 | P.PN ---
Subjective Progress Note Date: 09/07/20 Principal diagnosis: CoVID 19 pneumonia 54-year-old white male patient who is an ex smoker, carries [id number] smoking history quit smoking 1 year ago in May, history of hypertension and gout who sees Dr. Contreras, presented to the emergency department on 08/02/2020 with complaints of worsening shortness of breath, cough, and patient was diagnosed with Covid 19 one week ago, was tested at [facility] per Dr. Contreras's order. 2 weeks ago he had symptoms of flulike illness, sore throat, shortness of breath, weakness, muscle aches which progressively became worse, and patient developed worsening shortness of breath and had difficulty breathing and ambulating at home. He was placed on Decadron [address] Contreras and he has 1-1/2 days worth left of it. Chest x-ray in the emergency department showed bilateral interstitial pneumonia. White blood cell count was 33.1, d-dimer was greater than 35.2, CO2 is 16, the rest of electrolytes were unremarkable, B1 is 35 creatinine is 1.04, plasma lactic acid is 4.5, patient was given IV fluids and lactic acid came down to 1.8, total bilirubin was 1.6, AST is 107, ALT is 48, alkaline phosphatase is 114, LDH is 5924, first troponin was 4.190, and the second one went up to 6.960. CRP is 180.3, pro-calcitonin level is 0.33, urinalysis showed 1+ protein, but no definite sign of infection, pulse ox is 86 on room air, patient has significant shortness of breath, and was placed on BiPAP support, currently with pressures of 12/6, and FiO2 of 100% on which he remains this morning, he is afebrile, hemodynamically he is stable, she was started on IV Decadron, we'll start him on intermediate dose of Lovenox 50 mg every 12 hours, CTA chest shows no evidence of pulmonary embolism, and extensive pulmonary infiltrates that are mostly interstitial consistent with severe interstitial pneumonia. Progress note dated 09/04/2020. 54-year-old male, admitted with a diagnosis of COVID 19 pneumonitis. Currently, he is on BiPAP at 12/6 and 90%. FiO2 will be dropped down to 80%. In addition, he is getting saline at 75 mL an hour. The patient's doing better today. He states that he feels better. He still short of breath with activity. I did tell him today to make sure he moves around in bed when he is laying in bed. White count 29.3, hemoglobin 14.6, hematocrit 42.7, platelet count 140,000. D- dimer greater than 34.10. Sodium 136, potassium 5.1, chlorides 105, CO2 25, anion gap 6, BUN 39, creatinine 0.9. LDH is 3965. C-reactive protein 143. Chest x-ray shows a worsening pattern of bilateral airspace disease. Progress note dated 09/05/2020. 54-year-old male, admitted with a diagnosis of COVID 19 pneumonitis. He remains on BiPAP with an FiO2 of 80%. Settings included an IPAP 12, EPAP 6. The patient states that he feels a bit better. He is getting saline at 75 mL an hour. He feels like he is breathing is improved. He does know to move about in bed. No new laboratory data today. His most recent chest x-ray was from yesterday and was reviewed. The patient's on appropriate medications. Progress note dated 09/06/2020. 54-year-old male, seen again today. The patient is on BiPAP, settings of IPAP 12, EPAP 6, and 90%. He is also getting saline at 75 mL an hour. Was admitted with a diagnosis of acute hypoxemic respiratory failure secondary to COVID 19 pneumonia. The patient feels about the same. No better or no worse. He will have a chest x-ray tomorrow. Labs are reviewed. White count 19.3, hemoglobin 15, hematocrit 43.9, and platelet count 92,000. Sodium 135, potassium 4.9, chlorides 109, CO2 20, anion gap 6, BUN 34, and creatinine 0.92. There is no recent chest x-ray to review. The patient is seen today 09/07/2020 in follow-up on the selective care unit. Kita rushing is currently resting comfortably in bed. States he is doing a little better today compared to yesterday. He is still requiring BiPAP support 12/6 and 100% FiO2. Chest x-ray reveals stable bilateral lung infiltrates. Blood glucose 163. He remains on bronchodilators, vitamin supplements, dexamethasone, Lovenox. 0.9 normal saline at 75 ML's per hour. Objective - Vital Signs Vital signs: Vital Signs Temp 98 F 09/07/20 16:15 Pulse 62 09/07/20 16:15 Resp 20 09/07/20 16:15 BP 148/80 09/07/20 16:15 Pulse Ox 89 L 09/07/20 16:15 Intake & Output 09/06/20 09/07/20 09/07/20 18:59 06:59 18:59 Intake Total 600 0 Output Total 875 401 450 Balance -275 -401 -450 Weight 94 kg Intake: Intake, IV Titration 600 Amount Sodium Chloride 0.9% 1, 600 000 ml @ 75 mls/hr IV . [id number] [facility] Rx#:[id number] Oral 0 0 Output: Urine 875 400 450 Stool 1 0 Other: Voiding Method Urinal # Voids 2 0 # Bowel Movements 0 - Exam GENERAL EXAM: Alert, pleasant 54-year-old gentleman, on BiPAP 12/600% FiO2, comfortable in mild respiratory distress. HEAD: Normocephalic. EYES: Normal reaction of pupils, equal size. NOSE: Clear with pink turbinates. THROAT: No erythema or exudates. NECK: No masses, no JVD. CHEST: No chest wall deformity. LUNGS: Equal air entry with crackles in the bilateral posterior bases. CVS: S1 and S2 normal with no audible murmur, regular rhythm. ABDOMEN: No hepatosplenomegaly, normal bowel sounds, no guarding or rigidity. SPINE: No scoliosis or deformity SKIN: No rashes CENTRAL NERVOUS SYSTEM: No focal deficits, tone is normal in all 4 extremities. EXTREMITIES: There is no peripheral edema. No clubbing, no cyanosis. Peripheral pulses are intact. - Labs CBC & Chem 7: 09/06/20 08:33 09/06/20 08:33 Labs: Abnormal Lab Results - Last 24 Hours (Table) 09/06/20 09/07/20 09/07/20 Range/Units 20:18 11:38 16:45 POC Glucose (mg/dL) 108 H 123 H 163 H (75-99) mg/dL Microbiology - Last 24 Hours (Table) 09/02/20 23:00 Blood Culture - Preliminary Blood No Growth after 96 hours 09/02/20 22:45 Blood Culture - Preliminary Blood No Growth after 96 hours Assessment and Plan Assessment: 1 Acute hypoxemic respiratory failure secondary to COVID 19 pneumonitis. Did receive tocilizumab and convalescent plasma 2 History of hypertension. 3 Former tobacco use. 4 Mildly elevated troponins, without chest pain. 5 Lactic acidosis. 6 No computed tomography scan evidence of pulmonary embolism. Plan: The patient was seen and evaluated by Dr. Brown He is slightly improved today compared to yesterday. Still requiring BiPAP 12/6 and 100% FiO2 Titrate down the FiO2 as tolerated Continued on dexamethasone, Lovenox, vitamin supplements Repeat inflammatory markers in the a.m. We will continue to follow I, the cosigning physician, performed a history & physical examination of the patient. Lungs sounds with crackles in the bilateral posterior bases. Maintaining good O2 saturations in the 90s on BiPAP 12/6 and 100% FiO2. I discussed the assessment and plan of care with my nurse practitioner, Moraima Schwartz. I attest to the above note as dictated by her.
[2020-09-07 20:42] LABS: Glucose,Whole Blood 148 mg/dL (75-99)
[2020-09-08] MEDS: ALBUTEROL HFA INHALER INHALATION SCH ×6 (03:56→19:14)
[2020-09-08] MEDS: guaiFENesin-Coden 100-10MG/5ML 10 ML CUP PO PRN ×2 (04:15→18:26)
[2020-09-08] MEDS: BENZONATATE 100 MG CAP PO PRN (04:15)
[2020-09-08 06:19] LABS: Glucose,Whole Blood 97 mg/dL (75-99)
[2020-09-08 07:20] LABS: C Reactive Protein 22.5 mg/L (<10.0)
[2020-09-08] MEDS: SODIUM CHLORIDE 0.9% 1,000 ML IV SCH ×2 (08:43→08:56)
[2020-09-08] MEDS: allopurinoL 300 MG TAB PO SCH (09:56)
[2020-09-08] MEDS: ASCORBIC ACID 500 MG TAB PO SCH ×2 (09:56→20:40)
[2020-09-08] MEDS: amLODIPine 10 MG TAB PO SCH (09:56)
[2020-09-08] MEDS: DEXAMETHASONE SOD PHOSPHATE 10 MG/ML 1 ML VIAL IV SCH ×2 (09:56→20:40)
[2020-09-08] MEDS: METOPROLOL TARTRATE 12.5 MG TAB PO SCH ×2 (09:56→20:40)
[2020-09-08] MEDS: ENOXAPARIN 40 MG/0.4 ML SYRINGE SQ SCH ×2 (09:56→20:40)
[2020-09-08] MEDS: FAMOTIDINE 20 MG TAB PO SCH ×2 (09:56→20:40)
[2020-09-08] MEDS: ATORVASTATIN 80 MG TAB PO SCH (09:56)
[2020-09-08] MEDS: ASPIRIN 81 MG PO SCH (09:56)
[2020-09-08] MEDS: ZINC SULFATE 220 MG CAP PO SCH (09:57)
--- NOTE | 2020-09-08 09:59 | P.PN ---
Subjective Progress Note Date: 09/08/20 CoVID 19 pneumonia 54-year-old white male patient who is an ex smoker, carries [id number] smoking history quit smoking 1 year ago in May, history of hypertension and gout who sees Dr. Contreras, presented to the emergency department on 08/02/2020 with complaints of worsening shortness of breath, cough, and patient was diagnosed with Covid 19 one week ago, was tested at [facility] per Dr. Contreras's order. 2 weeks ago he had symptoms of flulike illness, sore throat, shortness of breath, weakness, muscle aches which progressively became worse, and patient developed worsening shortness of breath and had difficulty breathing and ambulating at home. He was placed on Decadron [address] Contreras and he has 1-1/2 days worth left of it. Chest x-ray in the emergency department showed bilateral interstitial pneumonia. White blood cell count was 33.1, d-dimer was greater than 35.2, CO2 is 16, the rest of electrolytes were unremarkable, B1 is 35 creatinine is 1.04, plasma lactic acid is 4.5, patient was given IV fluids and lactic acid came down to 1.8, total bilirubin was 1.6, AST is 107, ALT is 48, alkaline phosphatase is 114, LDH is 5924, first troponin was 4.190, and the second one went up to 6.960. CRP is 180.3, pro-calcitonin level is 0.33, urinalysis showed 1+ protein, but no definite sign of infection, pulse ox is 86 on room air, patient has significant shortness of breath, and was placed on BiPAP support, currently with pressures of 12/6, and FiO2 of 100% on which he remains this morning, he is afebrile, hemodynamically he is stable, she was started on IV Decadron, we'll start him on intermediate dose of Lovenox 50 mg every 12 hours, CTA chest shows no evidence of pulmonary embolism, and extensive pulmonary infiltrates that are mostly interstitial consistent with severe interstitial pneumonia. Progress note dated 09/04/2020. 54-year-old male, admitted with a diagnosis of COVID 19 pneumonitis. Currently, he is on BiPAP at 12/6 and 90%. FiO2 will be dropped down to 80%. In addition, he is getting saline at 75 mL an hour. The patient's doing better today. He states that he feels better. He still short of breath with activity. I did tell him today to make sure he moves around in bed when he is laying in bed. White count 29.3, hemoglobin 14.6, hematocrit 42.7, platelet count 140,000. D- dimer greater than 34.10. Sodium 136, potassium 5.1, chlorides 105, CO2 25, anion gap 6, BUN 39, creatinine 0.9. LDH is 3965. C-reactive protein 143. Chest x-ray shows a worsening pattern of bilateral airspace disease. Progress note dated 09/05/2020. 54-year-old male, admitted with a diagnosis of COVID 19 pneumonitis. He remains on BiPAP with an FiO2 of 80%. Settings included an IPAP 12, EPAP 6. The patient states that he feels a bit better. He is getting saline at 75 mL an hour. He feels like he is breathing is improved. He does know to move about in bed. No new laboratory data today. His most recent chest x-ray was from yesterday and was reviewed. The patient's on appropriate medications. Progress note dated 09/06/2020. 54-year-old male, seen again today. The patient is on BiPAP, settings of IPAP 12, EPAP 6, and 90%. He is also getting saline at 75 mL an hour. Was admitted with a diagnosis of acute hypoxemic respiratory failure secondary to COVID 19 pneumonia. The patient feels about the same. No better or no worse. He will have a chest x-ray tomorrow. Labs are reviewed. White count 19.3, hemoglobin 15, hematocrit 43.9, and platelet count 92,000. Sodium 135, potassium 4.9, chlorides 109, CO2 20, anion gap 6, BUN 34, and creatinine 0.92. There is no recent chest x-ray to review. The patient is seen today 09/07/2020 in follow-up on the selective care unit. He is currently resting comfortably in bed. States he is doing a little better today compared to yesterday. He is still requiring BiPAP support 12/6 and 100% FiO2. Chest x-ray reveals stable bilateral lung infiltrates. Blood glucose 163. He remains on bronchodilators, vitamin supplements, dexamethasone, Lovenox. 0.9 normal saline at 75 ML's per hour. On 09/08/2020, the patient is being seen in follow-up on the selective units. The patient is a 54-year-old male patient with Covid 19 related pneumonia and the patient has diffuse stable by the pulmonary infiltrates. The patient remains on Decadron. The patient is also on Lovenox 40 mg subcu every 12 hours. The patient is also requiring BiPAP for respiratory support at a pressure of 12/6 cm of water and FiO2 of 100%. The patient is able to generate a tidal volume of 800 mL of the respiratory rate of 24 and a minute ventilation of 23 L. The patient Has elevated inflammatory markers and the last time the markers were checked were on 09/04/2020 with an LDH of 3965 and a CRP of 142. Levels will need to be rechecked. The d-dimer was above 34. The LDH level remains elevated at 3911. D-dimer is 24.6. The patient is also on IV fluids with normal saline at the rate of 75 mL an hour. The patient is on Decadron 6 because IV every 24 hours. The patient is also on Lovenox 40 mg subcu every 12 hours. His current BMI 31.5. Objective - Vital Signs Vital signs: Vital Signs Temp 98.2 F 09/08/20 08:48 Pulse 62 09/08/20 08:48 Resp 27 H 09/08/20 08:48 BP 143/84 09/08/20 08:48 Pulse Ox 86 L 09/08/20 08:53 Intake & Output 09/07/20 09/08/20 09/08/20 18:59 06:59 18:59 Intake Total 200 Output Total 800 250 Balance -600 -250 Weight 92 kg Intake: Oral 200 Output: Urine 800 250 Stool 0 0 Other: Voiding Method Urinal Urinal # Voids 0 # Bowel Movements 0 - Exam GENERAL EXAM: Alert, pleasant 54-year-old gentleman, on BiPAP /6 100% FiO2, comfortable in mild respiratory distress. HEAD: Normocephalic. EYES: Normal reaction of pupils, equal size. NOSE: Clear with pink turbinates. THROAT: No erythema or exudates. NECK: No masses, no JVD. CHEST: No chest wall deformity. LUNGS: Equal air entry with crackles in the bilateral posterior bases. CVS: S1 and S2 normal with no audible murmur, regular rhythm. ABDOMEN: No hepatosplenomegaly, normal bowel sounds, no guarding or rigidity. SPINE: No scoliosis or deformity SKIN: No rashes CENTRAL NERVOUS SYSTEM: No focal deficits, tone is normal in all 4 extremities. EXTREMITIES: There is no peripheral edema. No clubbing, no cyanosis. Peripheral pulses are intact. - Labs CBC & Chem 7: 09/06/20 08:33 09/06/20 08:33 Labs: Abnormal Lab Results - Last 24 Hours (Table) 09/07/20 09/07/20 09/07/20 Range/Units 11:38 16:45 20:40 D-Dimer (<0.60) mg/L FEU POC Glucose (mg/dL) 123 H 163 H 148 H (75-99) mg/dL Lactate Dehydrogenase (313-618) U/L C-Reactive Protein (<10.0) mg/L 09/08/20 09/08/20 Range/Units 06:37 06:37 D-Dimer 24.62 H (<0.60) mg/L FEU POC Glucose (mg/dL) (75-99) mg/dL Lactate Dehydrogenase 3911 H (313-618) U/L C-Reactive Protein 22.5 H (<10.0) mg/L Microbiology - Last 24 Hours (Table) 09/02/20 23:00 Blood Culture - Preliminary Blood No Growth after 120 hours 09/02/20 22:45 Blood Culture - Preliminary Blood No Growth after 120 hours Assessment and Plan Plan: 1 Acute hypoxemic respiratory failure secondary to COVID 19 pneumonitis. Patient received tocilizumab and convalescent plasma, the patient is currently on Decadron 6 and the grams every 24 hours and the patient is also on Lovenox 40 mg subcu every 12 hours. Affirmative markers need to be checked knowing that LDH CRP and d-dimer is quite elevated and the patient is on Lovenox 40 mg subcu every 12 hours. The patient remains on Decadron. The patient also received a unit of convalescent plasma and Actemra 2 History of hypertension. 3 Former tobacco use. 4 Mildly elevated troponins, without chest pain. 5 Lactic acidosis. 6 No computed tomography scan evidence of pulmonary embolism. Plan: Still requiring BiPAP 05/04 and 100% FiO2, we'll try to wean down the FiO2 as tolerated Titrate down the FiO2 as tolerated Continued on dexamethasone, modified the dose to 6 mg IV every 12 hours Lovenox, vitamin supplements convalescent plasma x1 given She received Actemra x1 Repeat inflammatory markers in the a.m., LDH and d-dimer is remain elevated We will continue to follow. Condition is still critical.
[2020-09-08] MEDS: CHOLECALCIFEROL 25 MCG (1000 IU) TABLET PO SCH (10:56)
--- NOTE | 2020-09-08 11:05 | XR ---
EXAMINATION TYPE: XR chest 1V portable DATE OF EXAM: 09/08/2020 CLINICAL HISTORY: Difficulty breathing and hypoxia progress study. TECHNIQUE: Single AP portable semiupright view of the chest is obtained. COMPARISON: Chest x-ray from one day earlier and older studies. CTA chest September 02, 2020. FINDINGS: Bilateral multifocal increased opacities redemonstrated. Cardiac silhouette size stable an d within normal limits. Osseous structures are intact. IMPRESSION: Bilateral multifocal opacities consistent with covid-19 infection redemonstrated, no sign ificant change from one day earlier.
--- NOTE | 2020-09-08 13:39 | P.PN ---
Subjective Patient is pleasant 54-year-old male came in with complaints of shortness of breath cough. Episodes of diarrhea nausea, generalized body aches and fevers at home patient was diagnosed with Covid 19 about a week ago patient's symptoms can you to get worse and patient is more short of breath because of which patient came to ER found to be hypoxic was started on IV fluids and patient has elevated inflammatory markers along with elevated troponin of 4.190 which of and up to 6.960 was started on IV heparin Decadron subsequently admitted. Patient had a CT of the chest which did not show any PE but did show extensive pulmonary infiltrates had an echocardiogram as well which did not show any significant abnormality. Cardiology and pulmonology were consulted. Patient is on heparin 50 twice a day which will be switched to anticoagulation those that is 90 twice a day testing elevation of troponin. 09/04/2020 Patient was pretty status is bit worse today patient is requiring BiPAP at this time. Patient is presently on IV heparin echo is being obtain from cardiology perspective because of elevated troponins and the cardiology believes and this is secondary to severe hypoxemia from Covid 19. Patient is not feeling well feeling bit worse. 09/05/2020 Patient is presently on BiPAP, he says is not doing well he is still short of br eath. 09/06/2020 patient remains on BiPAP easily gets short of breath still not feeling well still feels tired. Patient is on BiPAP with 90% FiO2. The patient is significant cough 09/07/2020 Patient is presently on BiPAP 100% FiO2 no significant change in his respiratory status overall. 09/08/2020 Patient test is still on FiO2 100% on BiPAP with the pressures of 12/ does have GERD and her minute volume patient d-dimer is 24.6. Patient is on Lovenox twice a day. Patient doesn't want to be intubated. Patient is sleeping comfortably when I saw the patient. Review of systems: Unable to obtain All inpatient medications were reviewed and appropriate changes in these medications as dictated in the interval history and assessment and plan. Objective - Vital Signs Vital signs: Vital Signs Temp 98.2 F 09/08/20 08:48 Pulse 52 L 09/08/20 11:23 Resp 25 H 09/08/20 11:23 BP 149/78 09/08/20 11:23 Pulse Ox 85 L 09/08/20 11:23 Intake & Output 09/07/20 09/08/20 09/08/20 18:59 06:59 18:59 Intake Total 200 240 Output Total 800 250 375 Balance -600 -250 -135 Weight 92 kg Intake: Oral 200 240 Output: Urine 800 250 375 Stool 0 0 Other: Voiding Method Urinal Urinal # Voids 0 # Bowel Movements 0 - Exam PHYSICAL EXAMINATION: GENERAL: The patient is resting, not in any acute distress. Well developed, well nourished. Not in respiratory distress on BiPAP HEENT: Pupils are round and equally reacting to light. EOMI. No scleral icterus. No conjunctival pallor. Normocephalic, atraumatic. No pharyngeal erythema. No thyromegaly. CARDIOVASCULAR: S1 and S2 present. No murmurs, rubs, or gallops. PULMONARY: Chest is clear to auscultation, no wheezing or crackles. ABDOMEN: Soft, nontender, nondistended, normoactive bowel sounds. No palpable organomegaly. MUSCULOSKELETAL: No joint swelling or deformity. EXTREMITIES: No cyanosis, clubbing, or pedal edema. NEUROLOGICAL: Gross neurological examination did not reveal any focal deficits. SKIN: No rashes. - Labs CBC & Chem 7: 09/06/20 08:33 09/06/20 08:33 Labs: Abnormal Lab Results - Last 24 Hours (Table) 09/07/20 09/07/20 09/08/20 Range/Units 16:45 20:40 06:37 D-Dimer 24.62 H (<0.60) mg/L FEU POC Glucose (mg/dL) 163 H 148 H (75-99) mg/dL Lactate Dehydrogenase (313-618) U/L C-Reactive Protein (<10.0) mg/L 09/08/20 Range/Units 06:37 D-Dimer (<0.60) mg/L FEU POC Glucose (mg/dL) (75-99) mg/dL Lactate Dehydrogenase 3911 H (313-618) U/L C-Reactive Protein 22.5 H (<10.0) mg/L Microbiology - Last 24 Hours (Table) 09/02/20 23:00 Blood Culture - Preliminary Blood No Growth after 120 hours 09/02/20 22:45 Blood Culture - Preliminary Blood No Growth after 120 hours Assessment and Plan Plan: -Acute hypoxic respiratory failure: Secondary to Covid 19. Patient was started on Decadron, vitamins. Patient is out of the window for Remdesivir, he received Tocilizumab and 1 unit of convalescent plasma., Patient is presently on BiPAP 100% FiO2 overall clinical condition is critical -Lactic acidosis all the patient is still on IV fluids at this time -Hypertension -Ruled out PE -Elevated troponins secondary to type II RI secondary to hypoxemia -GI prophylaxis with Pepcid
[2020-09-09] MEDS: ALBUTEROL HFA INHALER INHALATION SCH ×6 (00:37→20:10)
[2020-09-09] MEDS: guaiFENesin-Coden 100-10MG/5ML 10 ML CUP PO PRN (06:01)
[2020-09-09] MEDS: SODIUM CHLORIDE 0.9% 1,000 ML IV SCH ×2 (06:05→17:29)
[2020-09-09] MEDS: FAMOTIDINE 20 MG TAB PO SCH ×2 (09:39→21:01)
[2020-09-09] MEDS: ASCORBIC ACID 500 MG TAB PO SCH ×2 (09:39→20:57)
[2020-09-09] MEDS: ASPIRIN 81 MG PO SCH (09:39)
[2020-09-09] MEDS: ZINC SULFATE 220 MG CAP PO SCH (09:39)
[2020-09-09] MEDS: ENOXAPARIN 40 MG/0.4 ML SYRINGE SQ SCH ×2 (09:40→20:58)
[2020-09-09] MEDS: METOPROLOL TARTRATE 12.5 MG TAB PO SCH ×2 (09:40→20:57)
[2020-09-09] MEDS: ATORVASTATIN 80 MG TAB PO SCH (09:40)
[2020-09-09] MEDS: amLODIPine 10 MG TAB PO SCH (09:40)
[2020-09-09] MEDS: DEXAMETHASONE SOD PHOSPHATE 10 MG/ML 1 ML VIAL IV SCH ×2 (09:40→20:58)
[2020-09-09] MEDS: CHOLECALCIFEROL 25 MCG (1000 IU) TABLET PO SCH (09:40)
[2020-09-09] MEDS: allopurinoL 300 MG TAB PO SCH (09:40)
--- NOTE | 2020-09-09 10:18 | P.PN ---
Subjective Progress Note Date: 09/09/20 54-year-old white male patient who is an ex smoker, carries [id number] smoking history quit smoking 1 year ago in May, history of hypertension and gout who sees Dr. Contreras, presented to the emergency department on 08/02/2020 with complaints of worsening shortness of breath, cough, and patient was diagnosed with Covid 19 one week ago, was tested at [facility] per Dr. Contreras's order. 2 weeks ago he had symptoms of flulike illness, sore throat, shortness of breath, weakness, muscle aches which progressively became worse, and patient developed worsening shortness of breath and had difficulty breathing and ambulating at home. He was placed on Decadron [address] Contreras and he has 1-1/2 days worth left of it. Chest x-ray in the emergency department showed bilateral interstitial pneumonia. White blood cell count was 33.1, d-dimer was greater than 35.2, CO2 is 16, the rest of electrolytes were unremarkable, B1 is 35 creatinine is 1.04, plasma lactic acid is 4.5, patient was given IV fluids and lactic acid came down to 1.8, total bilirubin was 1.6, AST is 107, ALT is 48, alkaline phosphatase is 114, LDH is 5924, first troponin was 4.190, and the second one went up to 6.960. CRP is 180.3, pro-calcitonin level is 0.33, urinalysis showed 1+ protein, but no definite sign of infection, pulse ox is 86 on room air, patient has significant shortness of breath, and was placed on BiPAP support, currently with pressures of 12/6, and FiO2 of 100% on which he remains this morning, he is afebrile, hemodynamically he is stable, she was started on IV Decadron, we'll start him on intermediate dose of Lovenox 50 mg every 12 hours, CTA chest shows no evidence of pulmonary embolism, and extensive pulmonary infiltrates that are mostly interstitial consistent with severe inters titial pneumonia. Progress note dated 09/04/2020. 54-year-old male, admitted with a diagnosis of COVID 19 pneumonitis. Currently, he is on BiPAP at 12/6 and 90%. FiO2 will be dropped down to 80%. In addition, he is getting saline at 75 mL an hour. The patient's doing better today. He states that he feels better. He still short of breath with activity. I did tell him today to make sure he moves around in bed when he is laying in bed. White count 29.3, hemoglobin 14.6, hematocrit 42.7, platelet count 140,000. D- dimer greater than 34.10. Sodium 136, potassium 5.1, chlorides 105, CO2 25, anion gap 6, BUN 39, creatinine 0.9. LDH is 3965. C-reactive protein 143. Chest x-ray shows a worsening pattern of bilateral airspace disease. Progress note dated 09/05/2020. 54-year-old male, admitted with a diagnosis of COVID 19 pneumonitis. He remains on BiPAP with an FiO2 of 80%. Settings included an IPAP 12, EPAP 6. The patient states that he feels a bit better. He is getting saline at 75 mL an hour. He feels like he is breathing is improved. He does know to move about in bed. No new laboratory data today. His most recent chest x-ray was from yesterday and was reviewed. The patient's on appropriate medications. Progress note dated 09/06/2020. 54-year-old male, seen again today. The patient is on BiPAP, settings of IPAP 12, EPAP 6, and 90%. He is also getting saline at 75 mL an hour. Was admitted with a diagnosis of acute hypoxemic respiratory failure secondary to COVID 19 pneumonia. The patient feels about the same. No better or no worse. He will have a chest x-ray tomorrow. Labs are reviewed. White count 19.3, hemoglobin 15, hematocrit 43.9, and platelet count 92,000. Sodium 135, potassium 4.9, chlorides 109, CO2 20, anion gap 6, BUN 34, and creatinine 0.92. There is no recent chest x-ray to review. The patient is seen today 09/07/2020 in follow-up on the selective care unit. He is currently resting comfortably in bed. States he is doing a little better today compared to yesterday. He is still requiring BiPAP support 12/6 and 100% FiO2. Chest x-ray reveals stable bilateral lung infiltrates. Blood glucose 163. He remains on bronchodilators, vitamin supplements, dexamethasone, Lovenox. 0.9 normal saline at 75 ML's per hour. On 09/08/2020, the patient is being seen in follow-up on the [facility] units. The patient is a 54-year-old male patient with Covid 19 related pneumonia and the patient has diffuse stable by the pulmonary infiltrates. The patient remains on Decadron. The patient is also on Lovenox 40 mg subcu every 12 hours. The patient is also requiring BiPAP for respiratory support at a pressure of 12/6 cm of water and FiO2 of 100%. The patient is able to generate a tidal volume of 800 mL of the respiratory rate of 24 and a minute ventilation of 23 L. The patient Has elevated inflammatory markers and the last time the markers were checked were on 09/04/2020 with an LDH of 3965 and a CRP of 142. Levels will need to be rechecked. The d-dimer was above 34. The LDH level remains elevated at 3911. D-dimer is 24.6. The patient is also on IV fluids with normal saline at the rate of 75 mL an hour. The patient is on Decadron 6 because IV every 24 hours. The patient is also on Lovenox 40 mg subcu every 12 hours. His current BMI 31.5. On 09/09/2020, the patient is being seen for a follow-up. The patient continues to be on a BiPAP at a pressure of 12/6 cm of water with an FiO2 of 100%. The patient is awake and he requires assistance to be moved around. His tidal volume is in the order of 800 mL which is comparable to yesterday. A repeat chest x-ray was done and it shows some limited improvement in the bilateral pulmonary infiltrates. the patient remains on Decadron and the dose is currently at 60 mg IV every 12 hours. inflammatory markers are elevated with an LDH level of 3 911 and the CRP is 22.5. His d-dimer is still elevated at 24.6 and the patient is on Lovenox at a dose of 40 mg subcu every 12 hours.. On his problem continue to be the patient's hypoxemia, Covid 19 related pneumonia and global weakness. Unfortunately, the patient is unable to eat as the patient desaturates significantly was taken off the BiPAP. Objective - Vital Signs Vital signs: Vital Signs Temp 98.1 F 09/09/20 04:00 Pulse 61 09/09/20 04:00 Resp 27 H 09/09/20 04:00 BP 136/64 09/09/20 04:00 Pulse Ox 91 L 09/09/20 04:00 Intake & Output 09/08/20 09/09/20 09/09/20 18:59 06:59 18:59 Intake Total 240 Output Total 375 1200 Balance -135 -1200 Weight 94.5 kg Intake: Oral 240 Output: Urine 375 1200 Other: Voiding Method Urinal Urinal - Exam GENERAL EXAM: Alert, pleasant 54-year-old gentleman, on BiPAP 12 100% FiO2, comfortable in mild respiratory distress. HEAD: Normocephalic. EYES: Normal reaction of pupils, equal size. NOSE: Clear with pink turbinates. THROAT: No erythema or exudates. NECK: No masses, no JVD. CHEST: No chest wall deformity. LUNGS: Equal air entry with crackles in the bilateral posterior bases. CVS: S1 and S2 normal with no audible murmur, regular rhythm. ABDOMEN: No hepatosplenomegaly, normal bowel sounds, no guarding or rigidity. SPINE: No scoliosis or deformity SKIN: No rashes CENTRAL NERVOUS SYSTEM: No focal deficits, tone is normal in all 4 extremities. EXTREMITIES: There is no peripheral edema. No clubbing, no cyanosis. Peripheral pulses are intact. - Labs CBC & Chem 7: 09/06/20 08:33 09/06/20 08:33 Labs: Microbiology - Last 24 Hours (Table) 09/02/20 23:00 Blood Culture - Final Blood No Growth after 144 hours 09/02/20 22:45 Blood Culture - Final Blood No Growth after 144 hours Assessment and Plan Plan: 1 Acute hypoxemic respiratory failure secondary to COVID 19 pneumonitis. Patient received tocilizumab and convalescent plasma, the patient is currently on Decadron 6 and the grams every 12 hours and the patient is also on Lovenox 40 mg subcu every 12 hours. The patient also received a unit of convalescent plasma and Actemra. The patient remains on Decadron high-dose. He is receiving Decadron 63 g IV every 12 hours. No major improvement clinically. A much BiPAP dependent. Very borderline respiratory status and the patient desaturates down to low levels once taken off the BiPAP. As such, is unable to eat. 2 History of hypertension. 3 Former tobacco use. 4 Mildly elevated troponins, without chest pain. 5 Lactic acidosis. 6 No computed tomography scan evidence of pulmonary embolism. Plan: Still requiring BiPAP 12/6 and 100% FiO2, we'll try to wean down the FiO2 as tolerated Titrate down the FiO2 as tolerated Continued on dexamethasone, modified the dose to 6 mg IV every 12 hours Lovenox, vitamin supplements convalescent plasma x1 given She received Actemra x1 Repeat inflammatory markers in the a.m., LDH and d-dimer is remain elevated Proceed with a PICC line insertion May consider something. Later stage if he is unable to meet his caloric requirements Repeat inflammatory markers tomorrow We will continue to follow. Condition is still critical.
--- NOTE | 2020-09-09 10:37 | XR ---
EXAMINATION TYPE: XR chest 1V portable DATE OF EXAM: 09/09/2020 Comparison: 09/08/2020 Clinical History: 54-year-old male COVID Findings: Heart upper limits of normal in size. Diffuse interstitial opacities and patchy confluent peripheral opacities especially at the mid lungs show no significant change. Impression: Interstitial and patchy peripheral COVID pneumonia not significantly changed.
[2020-09-09] MEDS: guaiFENesin SYRUP 100MG/5ML 200 MG/10 ML CUP PO PRN (11:49)
[2020-09-09] MEDS: BENZONATATE 100 MG CAP PO PRN (11:49)
--- NOTE | 2020-09-09 12:00 | P.PN ---
Subjective Patient is pleasant 54-year-old male came in with complaints of shortness of breath cough. Episodes of diarrhea nausea, generalized body aches and fevers at home patient was diagnosed with Covid 19 about a week ago patient's symptoms can you to get worse and patient is more short of breath because of which patient came to ER found to be hypoxic was started on IV fluids and patient has elevated inflammatory markers along with elevated troponin of 4.190 which of and up to 6.960 was started on IV heparin Decadron subsequently admitted. Patient had a CT of the chest which did not show any PE but did show extensive pulmonary infiltrates had an echocardiogram as well which did not show any significant abnormality. Cardiology and pulmonology were consulted. Patient is on heparin 50 twice a day which will be switched to anticoagulation those that is 90 twice a day testing elevation of troponin. 09/04/2020 Patient was pretty status is bit worse today patient is requiring BiPAP at this time. Patient is presently on IV heparin echo is being obtain from cardiology perspective because of elevated troponins and the cardiology believes and this is secondary to severe hypoxemia from Covid 19. Patient is not feeling well feeling bit worse. 09/05/2020 Patient is presently on BiPAP, he says is not doing well he is still short of br eath. 09/06/2020 patient remains on BiPAP easily gets short of breath still not feeling well still feels tired. Patient is on BiPAP with 90% FiO2. The patient is significant cough 09/07/2020 Patient is presently on BiPAP 100% FiO2 no significant change in his respiratory status overall. 09/08/2020 Patient test is still on FiO2 100% on BiPAP with the pressures of / does have GERD and her minute volume patient d-dimer is 24.6. Patient is on Lovenox twice a day. Patient doesn't want to be intubated. Patient is sleeping comfortably when I saw the patient. 09/09/2020 Patient is still on 100% FiO2 on BiPAP but at least his saturations are staying in low 90s instead of 80s. Patient decreased overall clinical condition till critical and pulmonology is recommending a TPN for nutritional support as patient has not been eating for so many days. Review of systems: Unable to obtain All inpatient medications were reviewed and appropriate changes in these medications as dictated in the interval history and assessment and plan. Objective - Vital Signs Vital signs: Vital Signs Temp 97.0 F L 09/09/20 08:00 Pulse 84 09/09/20 08:00 Resp 32 H 09/09/20 08:00 BP 135/81 09/09/20 08:00 Pulse Ox 90 L 09/09/20 08:00 Intake & Output 09/08/20 09/09/20 09/09/20 18:59 06:59 18:59 Intake Total 240 Output Total 375 1200 0 Balance -135 -1200 0 Weight 94.5 kg Intake: Oral 240 Output: Urine 375 1200 Stool 0 Other: Voiding Method Urinal Urinal Urinal - Exam PHYSICAL EXAMINATION: GENERAL: The patient is resting, not in any acute distress. Well developed, well nourished. Not in respiratory distress on BiPAP HEENT: Pupils are round and equally reacting to light. EOMI. No scleral icterus. No conjunctival pallor. Normocephalic, atraumatic. No pharyngeal erythema. No thyromegaly. CARDIOVASCULAR: S1 and S2 present. No murmurs, rubs, or gallops. PULMONARY: Chest is clear to auscultation, no wheezing or crackles. ABDOMEN: Soft, nontender, nondistended, normoactive bowel sounds. No palpable organomegaly. MUSCULOSKELETAL: No joint swelling or deformity. EXTREMITIES: No cyanosis, clubbing, or pedal edema. NEUROLOGICAL: Gross neurological examination did not reveal any focal deficits. SKIN: No rashes. - Labs CBC & Chem 7: 09/06/20 08:33 09/06/20 08:33 Labs: Microbiology - Last 24 Hours (Table) 09/02/20 23:00 Blood Culture - Final Blood No Growth after 144 hours 09/02/20 22:45 Blood Culture - Final Blood No Growth after 144 hours Assessment and Plan Plan: -Acute hypoxic respiratory failure: Secondary to Covid 19. Patient was started on Decadron, vitamins. Patient is out of the window for Remdesivir, he received Tocilizumab and 1 unit of convalescent plasma., Patient is presently on BiPAP 100% FiO2 overall clinical condition is critical -Lactic acidosis all the patient is still on IV fluids at this time -Hypertension -Ruled out PE -Elevated troponins secondary to type II MT secondary to hypoxemia -GI prophylaxis with Pepcid
[2020-09-09] MEDS ORDERED: LIDOCAINE 1% INJ 10MG/ML (20 ML MDV) SQ ONE (12:51)
--- NOTE | 2020-09-09 13:34 | XR ---
EXAMINATION TYPE: XR chest 1V portable DATE OF EXAM: 09/09/2020 COMPARISON: Chest x-ray same dated earlier time HISTORY: Status post PICC line placement TECHNIQUE: Single frontal view of the chest is obtained. FINDINGS: There is been interval placement of left-sided PICC line, distal tip is overlying the supe rior vena cava. No other significant interval change. IMPRESSION: interval PICC line placement
--- NOTE | 2020-09-09 14:04 | IR ---
PICC LINE PLACEMENT: HISTORY: Infection requiring long-term antibiotic therapy PROCEDURE: Ultrasound guidance of PICC line placement. COMPLICATIONS: None ANESTHESIA: 1. 1% Lidocaine locally. FINDINGS/TECHNIQUE: The procedure was explained to the patient. The risks, complications, benefits and alternatives were discussed and any questions were answered. Informed consent was obtained. The patient was placed supine on the fluoroscopic table and prepped and draped in the usual sterile fas ion. Utilizing a 21 gauge needle and sonographic guidance, access in the left basilic vein was achi eved and there is placement of a 0.018 guidewire. The vein is patent. A 5-F. sheath was placed over the guidewire. The guidewire and dilator were removed and a 5-F. Double lumen PICC line was placed through the sheath with the chest x-ray confirming the tip at the level of the SVC. The sheath was r emoved, the catheter was flushed and sutured into position. The patient was stable throughout the pr ocedure and remained stable upon discharge from the Department of Radiology. The vein puncture was patent under ultrasound. A ly scale image was obtained to document patency of the vein punctured. All elements of the maximal barrier technique were utilized. IMPRESSION: 1. Successful PICC line placement under ultrasound performed bedside.
[2020-09-09 16:35] LABS: Ionized Calcium 5.1 mg/dL (4.5-5.3)
[2020-09-09 16:52] LABS: ALT 43 U/L (4-49); AST 75 U/L (17-59); African American GFR (CKD) >90 (>60 ml/min/1.73 sqM); Alkaline Phosphatase 220 U/L (38-126); Anion Gap 5 mmol/L; Blood Urea Nitrogen 29 mg/dL (9-20); Calcium 8.3 mg/dL (8.4-10.2); Carbon Dioxide 23 mmol/L (22-30); Chloride 108 mmol/L (98-107); Glucose 123 mg/dL (74-99); Magnesium 2.4 mg/dL (1.6-2.3); Non-African American GFR(CKD) >90 (>60 ml/min/1.73 sqM); Phosphorus 3.9 mg/dL (2.5-4.5); Potassium 4.9 mmol/L (3.5-5.1); Sodium 136 mmol/L (137-145); Total Protein 5.7 g/dL (6.3-8.2); Triglycerides 227 mg/dL (<150)
[2020-09-09] MEDS ORDERED: MVI, ADULT NO.4 WITH VIT K 10 ML, TRACE (CONC-1ML/DOSE) 1 ML, SODIUM ACETATE 30 MEQ, PO... IV ONE ×7 (20:00)
[2020-09-10] MEDS: ALBUTEROL HFA INHALER INHALATION SCH ×6 (01:16→21:01)
[2020-09-10] MEDS: BENZONATATE 100 MG CAP PO PRN ×2 (01:36→09:32)
[2020-09-10] MEDS: guaiFENesin-Coden 100-10MG/5ML 10 ML CUP PO PRN ×3 (01:36→19:57)
[2020-09-10 09:06] LABS: African American GFR (CKD) >90 (>60 ml/min/1.73 sqM); Anion Gap 8 mmol/L; Blood Urea Nitrogen 29 mg/dL (9-20); Calcium 8.2 mg/dL (8.4-10.2); Carbon Dioxide 21 mmol/L (22-30); Chloride 107 mmol/L (98-107); Glucose 110 mg/dL (74-99); Magnesium 2.4 mg/dL (1.6-2.3); Non-African American GFR(CKD) >90 (>60 ml/min/1.73 sqM); Phosphorus 4.4 mg/dL (2.5-4.5); Sodium 136 mmol/L (137-145)
[2020-09-10] MEDS: ASPIRIN 81 MG PO SCH (09:32)
[2020-09-10] MEDS: DEXAMETHASONE SOD PHOSPHATE 10 MG/ML 1 ML VIAL IV SCH ×2 (09:32→21:54)
[2020-09-10] MEDS: allopurinoL 300 MG TAB PO SCH (09:32)
[2020-09-10] MEDS: amLODIPine 10 MG TAB PO SCH (09:32)
[2020-09-10] MEDS: ASCORBIC ACID 500 MG TAB PO SCH ×2 (09:32→19:57)
[2020-09-10] MEDS: ATORVASTATIN 80 MG TAB PO SCH (09:32)
[2020-09-10] MEDS: ENOXAPARIN 40 MG/0.4 ML SYRINGE SQ SCH ×2 (09:32→19:57)
[2020-09-10] MEDS: ZINC SULFATE 220 MG CAP PO SCH (09:32)
[2020-09-10] MEDS: CHOLECALCIFEROL 25 MCG (1000 IU) TABLET PO SCH (09:32)
[2020-09-10] MEDS: FAMOTIDINE 20 MG TAB PO SCH ×2 (09:32→19:57)
[2020-09-10] MEDS: FAT EMULSION 20% 250 ML IV SCH (09:33)
[2020-09-10] MEDS: METOPROLOL TARTRATE 12.5 MG TAB PO SCH ×2 (09:33→19:57)
--- NOTE | 2020-09-10 11:13 | P.PN ---
Subjective Progress Note Date: 09/10/20 54-year-old white male patient who is an ex smoker, carries [id number] smoking history quit smoking 1 year ago in May, history of hypertension and gout who sees Dr. Contreras, presented to the emergency department on 08/02/2020 with complaints of worsening shortness of breath, cough, and patient was diagnosed with Covid 19 one week ago, was tested at [facility] per Dr. Contreras's order. 2 weeks ago he had symptoms of flulike illness, sore throat, shortness of breath, weakness, muscle aches which progressively became worse, and patient developed worsening shortness of breath and had difficulty breathing and ambulating at home. He was placed on Decadron [address] Contreras and he has 1-1/2 days worth left of it. Chest x-ray in the emergency department showed bilateral interstitial pneumonia. White blood cell count was 33.1, d-dimer was greater than 35.2, CO2 is 16, the rest of electrolytes were unremarkable, B1 is 35 creatinine is 1.04, plasma lactic acid is 4.5, patient was given IV fluids and lactic acid came down to 1.8, total bilirubin was 1.6, AST is 107, ALT is 48 , alkaline phosphatase is 114, LDH is 5924, first troponin was 4.190, and the second one went up to 6.960. CRP is 180.3, pro-calcitonin level is 0.33, urinalysis showed 1+ protein, but no definite sign of infection, pulse ox is 86 on room air, patient has significant shortness of breath, and was placed on BiPAP support, currently with pressures of 12/6, and FiO2 of 100% on which he remains this morning, he is afebrile, hemodynamically he is stable, she was started on IV Decadron, we'll start him on intermediate dose of Lovenox 50 mg every 12 hours, CTA chest shows no evidence of pulmonary embolism, and extensive pulmonary infiltrates that are mostly interstitial consistent with severe inter stitial pneumonia. Progress note dated 09/04/2020. 54-year-old male, admitted with a diagnosis of COVID 19 pneumonitis. Currently, he is on BiPAP at 12/6 and 90%. FiO2 will be dropped down to 80%. In addition, he is getting saline at 75 mL an hour. The patient's doing better today. He states that he feels better. He still short of breath with activity. I did tell him today to make sure he moves around in bed when he is laying in bed. White count 29.3, hemoglobin 14.6, hematocrit 42.7, platelet count 140,000. D- dimer greater than 34.10. Sodium 136, potassium 5.1, chlorides 105, CO2 25, anion gap 6, BUN 39, creatinine 0.9. LDH is 3965. C-reactive protein 143. Chest x-ray shows a worsening pattern of bilateral airspace disease. Progress note dated 09/05/2020. 54-year-old male, admitted with a diagnosis of COVID 19 pneumonitis. He remains on BiPAP with an FiO2 of 80%. Settings included an IPAP 12, EPAP 6. The patient states that he feels a bit better. He is getting saline at 75 mL an hour. He feels like he is breathing is improved. He does know to move about in bed. No new laboratory data today. His most recent chest x-ray was from yesterday and was reviewed. The patient's on appropriate medications. Progress note dated 09/06/2020. 54-year-old male, seen again today. The patient is on BiPAP, settings of IPAP 12, EPAP 6, and 90%. He is also getting saline at 75 mL an hour. Was admitted with a diagnosis of acute hypoxemic respiratory failure secondary to COVID 19 pneumonia. The patient feels about the same. No better or no worse. He will have a chest x-ray tomorrow. Labs are reviewed. White count 19.3, hemoglobin 15, hematocrit 43.9, and platelet count 92,000. Sodium 135, potassium 4.9, chlorides 109, CO2 20, anion gap 6, BUN 34, and creatinine 0.92. There is no recent chest x-ray to review. The patient is seen today 09/07/2020 in follow-up on the selective care unit. He is currently resting comfortably in bed. States he is doing a little better today compared to yesterday. He is still requiring BiPAP support 12/6 and 100% FiO2. Chest x-ray reveals stable bilateral lung infiltrates. Blood glucose 163. He remains on bronchodilators, vitamin supplements, dexamethasone, Lovenox. 0.9 normal saline at 75 ML's per hour. On 09/08/2020, the patient is being seen in follow-up on the [facility] units. The patient is a 54-year-old male patient with Covid 19 related pneumonia and the patient has diffuse stable by the pulmonary infiltrates. The patient remains on Decadron. The patient is also on Lovenox 40 mg subcu every 12 hours. The patient is also requiring BiPAP for respiratory support at a pressure of 12/6 cm of water and FiO2 of 100%. The patient is able to generate a tidal volume of 800 mL of the respiratory rate of 24 and a minute ventilation of 23 L. The patient Has elevated inflammatory markers and the last time the markers were checked were on 09/04/2020 with an LDH of 3965 and a CRP of 142. Levels will need to be rechecked. The d-dimer was above 34. The LDH level remains elevated at 3911. D-dimer is 24.6. The patient is also on IV fluids with normal saline at the rate of 75 mL an hour. The patient is on Decadron 6 because IV every 24 hours. The patient is also on Lovenox 40 mg subcu every 12 hours. His current BMI 31.5. On 09/09/2020, the patient is being seen for a follow-up. The patient continues to be on a BiPAP at a pressure of 12/6 cm of water with an FiO2 of 100%. The patient is awake and he requires assistance to be moved around. His tidal volume is in the order of 800 mL which is comparable to yesterday. A repeat chest x-ray was done and it shows some limited improvement in the bilateral pulmonary infiltrates. the patient remains on Decadron and the dose is currently at 60 mg IV every 12 hours. inflammatory markers are elevated with an LDH level of 3 911 and the CRP is 22.5. His d-dimer is still elevated at 24.6 and the patient is on Lovenox at a dose of 40 mg subcu every 12 hours.. On his problem continue to be the patient's hypoxemia, Covid 19 related pneumonia and global weakness. Unfortunately, the patient is unable to eat as the patient desaturates significantly was taken off the BiPAP. 09/10/2020 the patient remains BiPAP dependent at the pressure of 12/6 cm of water. His FiO2 is still 100%. He was still able to generate adequate tidal volumes while being on a BiPAP. He has had a PICC line yesterday as the patient was not meeting his caloric requirements and I was also contemplating the possibility of TPN. His chest x-ray remains unchanged with diffuse bilateral infiltrates consistent with Covid 19 related pneumonia. His blood work is showing a d-dimer of 24 from 2 days ago. Electrolytes are normal, and no new inflammatory markers. The current pulse ox is 92% on a BiPAP and the patient remains on Decadron 6 mg IV every 12 hours. Objective - Vital Signs Vital signs: Vital Signs Temp 97 F L 09/10/20 08:00 Pulse 53 L 09/10/20 09:30 Resp 22 09/10/20 09:30 BP 131/63 09/10/20 08:00 Pulse Ox 92 L 09/10/20 08:00 Intake & Output 09/09/20 09/10/20 09/10/20 18:59 06:59 18:59 Intake Total 600 Output Total 550 1100 Balance 50 -1100 Weight 94.5 kg 95.3 kg Intake: Intake, IV Titration 600 Amount Sodium Chloride 0.9% 1, 600 000 ml @ 75 mls/hr IV . [id number] [facility] Rx#:[id number] Output: Urine 550 1100 Stool 0 Other: Voiding Method Urinal Urinal Urinal - Exam GENERAL EXAM: Alert, pleasant 54-year-old gentleman, on BiPAP 12/6 100% FiO2, comfortable in mild respiratory distress. HEAD: Normocephalic. EYES: Normal reaction of pupils, equal size. NOSE: Clear with pink turbinates. THROAT: No erythema or exudates. NECK: No masses, no JVD. CHEST: No chest wall deformity. LUNGS: Equal air entry with crackles in the bilateral posterior bases. CVS: S1 and S2 normal with no audible murmur, regular rhythm. ABDOMEN: No hepatosplenomegaly, normal bowel sounds, no guarding or rigidity. SPINE: No scoliosis or deformity SKIN: No rashes CENTRAL NERVOUS SYSTEM: No focal deficits, tone is normal in all 4 extremities. EXTREMITIES: There is no peripheral edema. No clubbing, no cyanosis. Peripheral pulses are intact. - Labs CBC & Chem 7: 09/06/20 08:33 09/10/20 07:35 Labs: Abnormal Lab Results - Last 24 Hours (Table) 09/09/20 09/10/20 Range/Units 16:04 07:35 Sodium 136 L 136 L (137-145) mmol/L Chloride 108 H (98-107) mmol/L Carbon Dioxide 21 L (22-30) mmol/L BUN 29 H 29 H (9-20) mg/dL Glucose 123 H 110 H (74-99) mg/dL Calcium 8.3 L 8.2 L (8.4-10.2) mg/dL Magnesium 2.4 H 2.4 H (1.6-2.3) mg/dL AST 75 H (17-59) U/L Alkaline Phosphatase 220 H (38-126) U/L Total Protein 5.7 L (6.3-8.2) g/dL Albumin 3.0 L (3.5-5.0) g/dL Triglycerides 227 H (<150) mg/dL Assessment and Plan Plan: 1 Acute hypoxemic respiratory failure secondary to COVID 19 pneumonitis. Patient received tocilizumab and convalescent plasma, the patient is currently o n Decadron 6 and the grams every 12 hours and the patient is also on Lovenox 40 mg subcu every 12 hours. The patient also received a unit of convalescent plasma and Actemra. The patient remains on Decadron high-dose. He is receiving Decadron 6 g IV every 12 hours. No major improvement clinically. A much BiPAP dependent. Very borderline respiratory status and the patient desaturates down to low levels once taken off the BiPAP. As such, is unable to eat as the patient was unable to come off the BiPAP. Based on that, I have made recommendations for a PICC line and the patient was started on TPN for nutritional support. He is doing well for now. He remains on Bipap same setting. He is still holding on his own. 2 History of hypertension. 3 Former tobacco use. 4 Mildly elevated troponins, without chest pain. 5 Lactic acidosis. 6 No computed tomography scan evidence of pulmonary embolism. Plan: Still requiring BiPAP 12/6 and 100% FiO2, we'll try to wean down the FiO2 as tolerated Titrate down the FiO2 as tolerated Continued on dexamethasone, modified the dose to 6 mg IV every 12 hours Lovenox, vitamin supplements convalescent plasma x1 given She received Actemra x1 Repeat inflammatory markers in the a.m., LDH and d-dimer is remain elevated PICC line inserted and the patient was started on TPN for nutritional support Repeat inflammatory markers tomorrow and chest x-ray tomorrow IV fluids to KVO We will continue to follow.
[2020-09-10] MEDS: SODIUM CHLORIDE 0.9% 1,000 ML IV SCH ×2 (11:47→21:44)
--- NOTE | 2020-09-10 11:49 | P.PN ---
Subjective Patient is pleasant 54-year-old male came in with complaints of shortness of breath cough. Episodes of diarrhea nausea, generalized body aches and fevers at home patient was diagnosed with Covid 19 about a week ago patient's symptoms can you to get worse and patient is more short of breath because of which patient came to ER found to be hypoxic was started on IV fluids and patient has elevated inflammatory markers along with elevated troponin of 4.190 which of and up to 6.960 was started on IV heparin Decadron subsequently admitted. Patient had a CT of the chest which did not show any PE but did show extensive pulmonary infiltrates had an echocardiogram as well which did not show any significant abnormality. Cardiology and pulmonology were consulted. Patient is on heparin 50 twice a day which will be switched to anticoagulation those that is 90 twice a day testing elevation of troponin. 09/04/2020 Patient was pretty status is bit worse today patient is requiring BiPAP at this time. Patient is presently on IV heparin echo is being obtain from cardiology perspective because of elevated troponins and the cardiology believes and this is secondary to severe hypoxemia from Covid 19. Patient is not feeling well feeling bit worse. 09/05/2020 Patient is presently on BiPAP, he says is not doing well he is still short of br eath. 09/06/2020 patient remains on BiPAP easily gets short of breath still not feeling well still feels tired. Patient is on BiPAP with 90% FiO2. The patient is significant cough 09/07/2020 Patient is presently on BiPAP 100% FiO2 no significant change in his respiratory status overall. 09/08/2020 Patient test is still on FiO2 100% on BiPAP with the pressures of 12/16 does have GERD and her minute volume patient d-dimer is 24.6. Patient is on Lovenox twice a day. Patient doesn't want to be intubated. Patient is sleeping comfortably when I saw the patient. 09/09/2020 Patient is still on 100% FiO2 on BiPAP but at least his saturations are staying in low 90s instead of 80s. Patient decreased overall clinical condition till critical and pulmonology is recommending a TPN for nutritional support as patient has not been eating for so many days. 09/10/2020 Patient remains on the BiPAP but saturations appears to be bit better today patient although feels really well. Patient is still on 100% FiO2 Constitutional: Denied any fatigue denied any fever. Cardio vascular: denied any chest pain, palpitations Gastrointestinal denied any nausea vomiting Pulmonary: Short of breath on BiPAP Neurologic denied any new focal deficits All inpatient medications were reviewed and appropriate changes in these medications as dictated in the interval history and assessment and plan. Objective - Vital Signs Vital signs: Vital Signs Temp 97.5 F L 09/10/20 11:40 Pulse 58 L 09/10/20 11:40 Resp 22 09/10/20 11:40 BP 139/80 09/10/20 11:40 Pulse Ox 93 L 09/10/20 11:40 Intake & Output 09/09/20 09/10/20 09/10/20 18:59 06:59 18:59 Intake Total 600 Output Total 550 1100 Balance 50 -1100 Weight 94.5 kg 95.3 kg Intake: Intake, IV Titration 600 Amount Sodium Chloride 0.9% 1, 600 000 ml @ 75 mls/hr IV . [id number] Rx#:[id number] Output: Urine 550 1100 Stool 0 Other: Voiding Method Urinal Urinal Urinal - Exam PHYSICAL EXAMINATION: GENERAL: The patient is resting, not in any acute distress. Well developed, well nourished. Not in respiratory distress on BiPAP HEENT: Pupils are round and equally reacting to light. EOMI. No scleral icterus. No conjunctival pallor. Normocephalic, atraumatic. No pharyngeal erythema. No thyromegaly. CARDIOVASCULAR: S1 and S2 present. No murmurs, rubs, or gallops. PULMONARY: Chest is clear to auscultation, no wheezing or crackles. ABDOMEN: Soft, nontender, nondistended, normoactive bowel sounds. No palpable organomegaly. MUSCULOSKELETAL: No joint swelling or deformity. EXTREMITIES: No cyanosis, clubbing, or pedal edema. NEUROLOGICAL: Gross neurological examination did not reveal any focal deficits. SKIN: No rashes. - Labs CBC & Chem 7: 09/06/20 08:33 09/10/20 07:35 Labs: Abnormal Lab Results - Last 24 Hours (Table) 09/09/20 09/10/20 Range/Units 16:04 07:35 Sodium 136 L 136 L (137-145) mmol/L Chloride 108 H (98-107) mmol/L Carbon Dioxide 21 L (22-30) mmol/L BUN 29 H 29 H (9-20) mg/dL Glucose 123 H 110 H (74-99) mg/dL Calcium 8.3 L 8.2 L (8.4-10.2) mg/dL Magnesium 2.4 H 2.4 H (1.6-2.3) mg/dL AST 75 H (17-59) U/L Alkaline Phosphatase 220 H (38-126) U/L Total Protein 5.7 L (6.3-8.2) g/dL Albumin 3.0 L (3.5-5.0) g/dL Triglycerides 227 H (<150) mg/dL Assessment and Plan Plan: -Acute hypoxic respiratory failure: Secondary to Covid 19. Patient was started on Decadron, vitamins. Patient is out of the window for Remdesivir, he received Tocilizumab and 1 unit of convalescent plasma., Patient is presently on BiPAP 100% FiO2. -Lactic acidosis resolved with IV fluids -Hypertension -Ruled out PE -Elevated troponins secondary to type II HI secondary to hypoxemia -GI prophylaxis with Pepcid
[2020-09-10 19:57] LABS: Glucose,Whole Blood 133 mg/dL (75-99)
[2020-09-10] MEDS: ALPRAZolam 0.5 MG TAB PO PRN (19:57)
[2020-09-10] MEDS: 1: MVI, ADULT NO.4 WITH VIT K 10 ML, TRACE (CONC-1ML/DOSE) 1 ML, SODIUM ACETATE 30 MEQ, IV SCH ×7 (21:45)
[2020-09-10 23:57] LABS: Glucose,Whole Blood 181 mg/dL (75-99)
[2020-09-11] MEDS: ALBUTEROL HFA INHALER INHALATION SCH ×7 (02:02→23:39)
[2020-09-11] MEDS: guaiFENesin-Coden 100-10MG/5ML 10 ML CUP PO PRN ×2 (03:31→19:53)
[2020-09-11 05:25] LABS: Glucose,Whole Blood 111 mg/dL (75-99)
[2020-09-11] MEDS: ENOXAPARIN 40 MG/0.4 ML SYRINGE SQ SCH ×2 (08:46→20:57)
[2020-09-11] MEDS: DEXAMETHASONE SOD PHOSPHATE 10 MG/ML 1 ML VIAL IV SCH ×2 (08:46→23:44)
[2020-09-11] MEDS: CHOLECALCIFEROL 25 MCG (1000 IU) TABLET PO SCH (08:47)
[2020-09-11] MEDS: allopurinoL 300 MG TAB PO SCH (08:47)
[2020-09-11] MEDS: FAMOTIDINE 20 MG TAB PO SCH ×2 (08:47→20:58)
[2020-09-11] MEDS: ASCORBIC ACID 500 MG TAB PO SCH ×2 (08:47→20:58)
[2020-09-11] MEDS: ASPIRIN 81 MG PO SCH (08:47)
[2020-09-11] MEDS: amLODIPine 10 MG TAB PO SCH (08:47)
[2020-09-11] MEDS: ZINC SULFATE 220 MG CAP PO SCH (08:47)
[2020-09-11] MEDS: ATORVASTATIN 80 MG TAB PO SCH (08:47)
[2020-09-11] MEDS: METOPROLOL TARTRATE 12.5 MG TAB PO SCH ×2 (08:47→20:58)
--- NOTE | 2020-09-11 09:59 | XR ---
EXAMINATION TYPE: XR chest 1V portable DATE OF EXAM: 09/11/2020 COMPARISON: 09/09/2020 INDICATION: Coated TECHNIQUE: Single frontal view of the chest is obtained. FINDINGS: The heart size is normal. The pulmonary vasculature is normal. Diffuse patchy infiltrates. Left lung. Perihilar consolidation appears to be worsening. IMPRESSION: 1. Worsening left lung infiltrate
--- NOTE | 2020-09-11 11:00 | P.PN ---
Subjective Progress Note Date: 09/11/20 54-year-old white male patient who is an ex smoker, carries [id number] smoking history quit smoking 1 year ago in May, history of hypertension and gout who sees Dr. Contreras, presented to the emergency department on 08/02/2020 with complaints of worsening shortness of breath, cough, and patient was diagnosed with Covid 19 one week ago, was tested at [facility] per Dr. Contreras's order. 2 weeks ago he had symptoms of flulike illness, sore throat, shortness of breath, weakness, muscle aches which progressively became worse, and patient developed worsening shortness of breath and had difficulty breathing and ambulating at home. He was placed on Decadron [address] Contreras and he has 1-1/2 days worth left of it. Chest x-ray in the emergency department showed bilateral interstitial pneumonia. White blood cell count was 33.1, d-dimer was greater than 35.2, CO2 is 16, the rest of electrolytes were unremarkable, B1 is 35 creatinine is 1.04, plasma lactic acid is 4.5, patient was given IV fluids and lactic acid came down to 1.8, total bilirubin was 1.6, AST is 107, ALT is 48 , alkaline phosphatase is 114, LDH is 5924, first troponin was 4.190, and the second one went up to 6.960. CRP is 180.3, pro-calcitonin level is 0.33, urinalysis showed 1+ protein, but no definite sign of infection, pulse ox is 86 on room air, patient has significant shortness of breath, and was placed on BiPAP support, currently with pressures of 12/6, and FiO2 of 100% on which he remains this morning, he is afebrile, hemodynamically he is stable, she was started on IV Decadron, we'll start him on intermediate dose of Lovenox 50 mg every 12 hours, CTA chest shows no evidence of pulmonary embolism, and extensive pulmonary infiltrates that are mostly interstitial consistent with severe inter stitial pneumonia. Progress note dated 09/04/2020. 54-year-old male, admitted with a diagnosis of COVID 19 pneumonitis. Currently, he is on BiPAP at 12/6 and 90%. FiO2 will be dropped down to 80%. In addition, he is getting saline at 75 mL an hour. The patient's doing better today. He states that he feels better. He still short of breath with activity. I did tell him today to make sure he moves around in bed when he is laying in bed. White count 29.3, hemoglobin 14.6, hematocrit 42.7, platelet count 140,000. D- dimer greater than 34.10. Sodium 136, potassium 5.1, chlorides 105, CO2 25, anion gap 6, BUN 39, creatinine 0.9. LDH is 3965. C-reactive protein 143. Chest x-ray shows a worsening pattern of bilateral airspace disease. Progress note dated 09/05/2020. 54-year-old male, admitted with a diagnosis of COVID 19 pneumonitis. He remains on BiPAP with an FiO2 of 80%. Settings included an IPAP 12, EPAP 6. The patient states that he feels a bit better. He is getting saline at 75 mL an hour. He feels like he is breathing is improved. He does know to move about in bed. No new laboratory data today. His most recent chest x-ray was from yesterday and was reviewed. The patient's on appropriate medications. Progress note dated 09/06/2020. 54-year-old male, seen again today. The patient is on BiPAP, settings of IPAP 12, EPAP 6, and 90%. He is also getting saline at 75 mL an hour. Was admitted with a diagnosis of acute hypoxemic respiratory failure secondary to COVID 19 pneumonia. The patient feels about the same. No better or no worse. He will have a chest x-ray tomorrow. Labs are reviewed. White count 19.3, hemoglobin 15, hematocrit 43.9, and platelet count 92,000. Sodium 135, potassium 4.9, chlorides 109, CO2 20, anion gap 6, BUN 34, and creatinine 0.92. There is no recent chest x-ray to review. The patient is seen today 09/07/2020 in follow-up on the selective care unit. He is currently resting comfortably in bed. States he is doing a little better today compared to yesterday. He is still requiring BiPAP support 12/6 and 100% FiO2. Chest x-ray reveals stable bilateral lung infiltrates. Blood glucose 163. He remains on bronchodilators, vitamin supplements, dexamethasone, Lovenox. 0.9 normal saline at 75 ML's per hour. On 09/08/2020, the patient is being seen in follow-up on the [facility] units. The patient is a 54-year-old male patient with Covid 19 related pneumonia and the patient has diffuse stable by the pulmonary infiltrates. The patient remains on Decadron. The patient is also on Lovenox 40 mg subcu every 12 hours. The patient is also requiring BiPAP for respiratory support at a pressure of 12/6 cm of water and FiO2 of 100%. The patient is able to generate a tidal volume of 800 mL of the respiratory rate of 24 and a minute ventilation of 23 L. The patient Has elevated inflammatory markers and the last time the markers were checked were on 09/04/2020 with an LDH of 3965 and a CRP of 142. Levels will need to be rechecked. The d-dimer was above 34. The LDH level remains elevated at 3911. D-dimer is 24.6. The patient is also on IV fluids with normal saline at the rate of 75 mL an hour. The patient is on Decadron 6 because IV every 24 hours. The patient is also on Lovenox 40 mg subcu every 12 hours. His current BMI 31.5. On 09/09/2020, the patient is being seen for a follow-up. The patient continues to be on a BiPAP at a pressure of 12/6 cm of water with an FiO2 of 100%. The patient is awake and he requires assistance to be moved around. His tidal volume is in the order of 800 mL which is comparable to yesterday. A repeat chest x-ray was done and it shows some limited improvement in the bilateral pulmonary infiltrates. the patient remains on Decadron and the dose is currently at 60 mg IV every 12 hours. inflammatory markers are elevated with an LDH level of 3 911 and the CRP is 22.5. His d-dimer is still elevated at 24.6 and the patient is on Lovenox at a dose of 40 mg subcu every 12 hours.. On his problem continue to be the patient's hypoxemia, Covid 19 related pneumonia and global weakness. Unfortunately, the patient is unable to eat as the patient desaturates significantly was taken off the BiPAP. 09/10/2020 the patient remains BiPAP dependent at the pressure of 12/6 cm of water. His FiO2 is still 100%. He was still able to generate adequate tidal volumes while being on a BiPAP. He has had a PICC line yesterday as the patient was not meeting his caloric requirements and I was also contemplating the possibility of TPN. His chest x-ray remains unchanged with diffuse bilateral infiltrates consistent with Covid 19 related pneumonia. His blood work is showing a d-dimer of 24 from 2 days ago. Electrolytes are normal, and no new inflammatory markers. The current pulse ox is 92% on a BiPAP and the patient remains on Decadron 6 mg IV every 12 hours. 09/11/2020, the patient remains on a BiPAP at a pressure of 12/6 and FiO2 of 100%. He is quite lethargic. He is in mild degree of respiratory distress even at rest while on the BiPAP. Current pulse ox is 89%. A PICC line was inserted yesterday and the patient was also started on TPN for nutritional support knowing that he was able to eat and he was not meeting his caloric requirements. His d-dimer is 15. The patient is on Lovenox 50 mg subcu every 12 hours. The patient is also receiving Decadron 6 mg IV 12 hours. Current pulse ox is around 89%. No major changes condition since yesterday. No other new labs otherwise. His resting in bed comfortably. He is generating tidal volumes above >600cc with respiratory rate in the mid 20s. He had no signs of any fluid overload. Mentation is preserved. Looks lethargic. He is able to answer questions and following commands. No other significant issues otherwise for now. I will today's condition is essentially stable since yesterday. Objective - Vital Signs Vital signs: Vital Signs Temp 97.9 F 09/11/20 08:30 Pulse 73 09/11/20 08:30 Resp 32 H 09/11/20 08:30 BP 147/78 09/11/20 08:30 Pulse Ox 90 L 09/11/20 08:30 Intake & Output 09/10/20 09/11/20 09/11/20 18:59 06:59 18:59 Intake Total 387 1509.6 Output Total 500 950 Balance -113 559.6 Weight 96 kg Intake: Intake, IV Titration 1509.6 Amount Fat Emulsion 20% 250 ml @ 249.6 20.833 mls/hr IV MoWeFr [facility] Rx#:[id number] Mvi, Adult No.4 with Vit 360 K 10 ml Trace (Conc-1Ml/ Dose) 1 ml Sodium Acetate 30 meq Potassium Chloride 10 meq Calcium Gluconate 1 gm Sodium Phosphate 6 mmol In Amino Acid 5%-D15w 1,000 ml @ 30 mls/hr IV .Q24H ONE Rx #:[id number] Sodium Acetate 30 meq 540 Potassium Chloride 10 meq Calcium Gluconate 1 gm Sodium Phosphate 6 mmol In Amino Acid 5%-D15w 1, 000 ml @ 90 mls/hr IV .BY DURATION [facility] Rx#: [id number] Sodium Chloride 0.9% 1, 360 000 ml @ 20 mls/hr IV . Q24H [facility] Rx#:[id number] Oral 387 Output: Urine 500 950 Stool 0 0 Other: Voiding Method Urinal Urinal # Voids 2 - Exam GENERAL EXAM: Alert, pleasant 54-year-old gentleman, on BiPAP 12/6 100% FiO2, comfortable in mild respiratory distress. HEAD: Normocephalic. EYES: Normal reaction of pupils, equal size. NOSE: Clear with pink turbinates. THROAT: No erythema or exudates. NECK: No masses, no JVD. CHEST: No chest wall deformity. LUNGS: Equal air entry with crackles in the bilateral posterior bases. CVS: S1 and S2 normal with no audible murmur, regular rhythm. ABDOMEN: No hepatosplenomegaly, normal bowel sounds, no guarding or rigidity. SPINE: No scoliosis or deformity SKIN: No rashes CENTRAL NERVOUS SYSTEM: No focal deficits, tone is normal in all 4 extremities. EXTREMITIES: There is no peripheral edema. No clubbing, no cyanosis. Peripheral pulses are intact. - Labs CBC & Chem 7: 09/06/20 08:33 09/10/20 07:35 Labs: Abnormal Lab Results - Last 24 Hours (Table) 09/10/20 09/10/20 09/11/20 Range/Units 19:55 23:56 05:23 D-Dimer (<0.60) mg/L FEU POC Glucose (mg/dL) 133 H 181 H 111 H (75-99) mg/dL 09/11/20 Range/Units 07:08 D-Dimer 15.60 H (<0.60) mg/L FEU POC Glucose (mg/dL) (75-99) mg/dL Assessment and Plan Plan: 1 Acute hypoxemic respiratory failure secondary to COVID 19 pneumonitis. Patient received tocilizumab and convalescent plasma, the patient is currently on Decadron 6 and the grams every 12 hours and the patient is also on Lovenox 40 mg subcu every 12 hours. The patient also received a unit of convalescent plasma and Actemra. The patient remains on Decadron high-dose. He is receiving Decadron 6 g IV every 12 hours. Clinically unchanged, still BiPAP dependent. Obvious signs of respiratory distress and insufficiency secondary to Covid 19 pneumonia. Very much BiPAP dependent. TPN was initiated. Chest x-ray showing some worsening of the left-sided pulmonary infiltration. Otherwise, the patient has diffuse bilateral pulmonary infiltrates consistent with COVID 19 Pneumonia. 2 History of hypertension. 3 Former tobacco use. 4 Mildly elevated troponins, without chest pain. 5 Lactic acidosis. 6 No computed tomography scan evidence of pulmonary embolism. Plan: Still requiring BiPAP 12/6 and 100% FiO2, we'll try to wean down the FiO2 as tolerated Titrate down the FiO2 as tolerated Continued on dexamethasone, 6 mg IV every 12 hours Lovenox 50 mg subcu every 12 hours vitamin supplements convalescent plasma x1 given Received Actemra x1 Repeat inflammatory markers in the a.m., LDH and d-dimer is remain elevated PICC line inserted and the patient was started on TPN for nutritional support IV fluids to KVO Chest x-ray was noted We will continue to follow.
[2020-09-11] MEDS: 1: MVI, ADULT NO.4 WITH VIT K 10 ML, TRACE (CONC-1ML/DOSE) 1 ML, SODIUM ACETATE 30 MEQ, IV SCH ×14 (11:22→21:50)
[2020-09-11 11:44] LABS: Glucose,Whole Blood 140 mg/dL (75-99)
[2020-09-11 12:12] LABS: African American GFR (CKD) >90 (>60 ml/min/1.73 sqM); Anion Gap 8 mmol/L; Blood Urea Nitrogen 25 mg/dL (9-20); C Reactive Protein 8.2 mg/L (<10.0); Calcium 8.8 mg/dL (8.4-10.2); Carbon Dioxide 25 mmol/L (22-30); Chloride 102 mmol/L (98-107); Glucose 76 mg/dL (74-99); Magnesium 2.1 mg/dL (1.6-2.3); Non-African American GFR(CKD) >90 (>60 ml/min/1.73 sqM); Phosphorus 3.4 mg/dL (2.5-4.5); Potassium 4.3 mmol/L (3.5-5.1); Sodium 135 mmol/L (137-145)
--- NOTE | 2020-09-11 16:43 | P.PN ---
Subjective Patient is pleasant 54-year-old male came in with complaints of shortness of breath cough. Episodes of diarrhea nausea, generalized body aches and fevers at home patient was diagnosed with Covid 19 about a week ago patient's symptoms can you to get worse and patient is more short of breath because of which patient came to ER found to be hypoxic was started on IV fluids and patient has elevated inflammatory markers along with elevated troponin of 4.190 which of and up to 6.960 was started on IV heparin Decadron subsequently admitted. Patient had a CT of the chest which did not show any PE but did show extensive pulmonary infiltrates had an echocardiogram as well which did not show any significant abnormality. Cardiology and pulmonology were consulted. Patient is on heparin 50 twice a day which will be switched to anticoagulation those that is 90 twice a day testing elevation of troponin. 09/04/2020 Patient was pretty status is bit worse today patient is requiring BiPAP at this time. Patient is presently on IV heparin echo is being obtain from cardiology perspective because of elevated troponins and the cardiology believes and this is secondary to severe hypoxemia from Covid 19. Patient is not feeling well feeling bit worse. 09/05/2020 Patient is presently on BiPAP, he says is not doing well he is still short of br eath. 09/06/2020 patient remains on BiPAP easily gets short of breath still not feeling well still feels tired. Patient is on BiPAP with 90% FiO2. The patient is significant cough 09/07/2020 Patient is presently on BiPAP 100% FiO2 no significant change in his respiratory status overall. 09/08/2020 Patient test is still on FiO2 100% on BiPAP with the pressures of 12/16 does have GERD and her minute volume patient d-dimer is 24.6. Patient is on Lovenox twice a day. Patient doesn't want to be intubated. Patient is sleeping comfortably when I saw the patient. 09/09/2020 Patient is still on 100% FiO2 on BiPAP but at least his saturations are staying in low 90s instead of 80s. Patient decreased overall clinical condition till critical and pulmonology is recommending a TPN for nutritional support as patient has not been eating for so many days. 09/10/2020 Patient remains on the BiPAP but saturations appears to be bit better today patient although feels really well. Patient is still on 100% FiO2 09/11/2020 Patient remains on TPN is on Decadron, patient tito on BiPAP with FiO2 100% patient did bobo. Bladder still lethargic patient presently has a PICC line as well. Patient doesn't have any significant improvement at the same time patient doesn't have any worsening either fairly stable clinical condition. Constitutional: Denied any fatigue denied any fever. Cardio vascular: denied any chest pain, palpitations Gastrointestinal denied any nausea vomiting Pulmonary: Short of breath on BiPAP Neurologic denied any new focal deficits All inpatient medications were reviewed and appropriate changes in these medications as dictated in the interval history and assessment and plan. Objective - Vital Signs Vital signs: Vital Signs Temp 97.7 F 09/11/20 15:30 Pulse 65 09/11/20 15:30 Resp 26 H 09/11/20 15:30 BP 124/80 09/11/20 15:30 Pulse Ox 95 09/11/20 15:30 Intake & Output 09/10/20 09/11/20 09/11/20 18:59 06:59 18:59 Intake Total 387 1509.6 640 Output Total 500 950 600 Balance -113 559.6 40 Weight 96 kg Intake: Intake, IV Titration 1509.6 640 Amount Fat Emulsion 20% 250 ml @ 249.6 20.833 mls/hr IV MoWeFr [facility] Rx#:[id number] Mvi, Adult No.4 with Vit 360 K 10 ml Trace (Conc-1Ml/ Dose) 1 ml Sodium Acetate 30 meq Potassium Chloride 10 meq Calcium Gluconate 1 gm Sodium Phosphate 6 mmol In Amino Acid 5%-D15w 1,000 ml @ 30 mls/hr IV .Q24H [facility] Rx #:[id number] Mvi, Adult No.4 with Vit 640 K 10 ml Trace (Conc-1Ml/ Dose) 1 ml Sodium Acetate 30 meq Potassium Chloride 10 meq Calcium Gluconate 1 gm Sodium Phosphate 6 mmol In Amino Acid 5%-D15w 1,000 ml @ 90 mls/hr IV .BY DURATION [facility] Rx#:[id number] Sodium Acetate 30 meq 540 Potassium Chloride 10 meq Calcium Gluconate 1 gm Sodium Phosphate 6 mmol In Amino Acid 5%-D15w 1, 000 ml @ 90 mls/hr IV .BY DURATION [facility] Rx#: [id number] Sodium Chloride 0.9% 1, 360 000 ml @ 20 mls/hr IV . Q24H [facility] Rx#:[id number] Oral 387 Output: Urine 500 950 600 Stool 0 0 Other: Voiding Method Urinal Urinal # Voids 2 - Exam PHYSICAL EXAMINATION: GENERAL: The patient is resting, not in any acute distress. Well developed, well nourished. Not in respiratory distress on BiPAP HEENT: Pupils are round and equally reacting to light. EOMI. No scleral icterus. No conjunctival pallor. Normocephalic, atraumatic. No pharyngeal erythema. No thyromegaly. CARDIOVASCULAR: S1 and S2 present. No murmurs, rubs, or gallops. PULMONARY: Chest is clear to auscultation, no wheezing or crackles. ABDOMEN: Soft, nontender, nondistended, normoactive bowel sounds. No palpable organomegaly. MUSCULOSKELETAL: No joint swelling or deformity. EXTREMITIES: No cyanosis, clubbing, or pedal edema. NEUROLOGICAL: Gross neurological examination did not reveal any focal deficits. SKIN: No rashes. - Labs CBC & Chem 7: 09/06/20 08:33 09/11/20 07:08 Labs: Abnormal Lab Results - Last 24 Hours (Table) 09/10/20 09/10/20 09/11/20 Range/Units 19:55 23:56 05:23 D-Dimer (<0.60) mg/L FEU Sodium (137-145) mmol/L BUN (9-20) mg/dL POC Glucose (mg/dL) 133 H 181 H 111 H (75-99) mg/dL Lactate Dehydrogenase (313-618) U/L 09/11/20 09/11/20 09/11/20 Range/Units 07:08 07:08 11:42 D-Dimer 15.60 H (<0.60) mg/L FEU Sodium 135 L (137-145) mmol/L BUN 25 H (9-20) mg/dL POC Glucose (mg/dL) 140 H (75-99) mg/dL Lactate Dehydrogenase 5040 H (313-618) U/L Assessment and Plan Plan: -Acute hypoxic respiratory failure: Secondary to Covid 19. Patient was started on Decadron, vitamins. Patient is out of the window for Remdesivir, he received Tocilizumab and 1 unit of convalescent plasma., Patient is presently on BiPAP 100% FiO2. Patient has a highly elevated BNP because of which she is on DVT prophylaxis at 40 twice a day of Lovenox, patient was negative for PE because of which I'm not using anticoagulation dose of Lovenox. -Lactic acidosis resolved with IV fluids -Hypertension -Ruled out PE -Elevated troponins secondary to type II DE secondary to hypoxemia -GI prophylaxis with Pepcid
[2020-09-11] MEDS: SODIUM CHLORIDE 0.9% 1,000 ML IV SCH (17:02)
[2020-09-11 17:56] LABS: Glucose,Whole Blood 135 mg/dL (75-99)
[2020-09-11] MEDS: ACETAMINOPHEN TAB 325 MG TAB PO PRN (20:57)
[2020-09-11] MEDS: ALPRAZolam 0.5 MG TAB PO PRN (20:58)
[2020-09-11] MEDS ORDERED: ENOXAPARIN 40 MG/0.4 ML SYRINGE SQ SCH (21:00)
[2020-09-12 00:33] LABS: Glucose,Whole Blood 144 mg/dL (75-99)
[2020-09-12 06:06] LABS: Glucose,Whole Blood 104 mg/dL (75-99)
[2020-09-12] MEDS: ASPIRIN 81 MG PO SCH (08:17)
[2020-09-12] MEDS: DEXAMETHASONE SOD PHOSPHATE 10 MG/ML 1 ML VIAL IV SCH ×2 (08:17→20:40)
[2020-09-12] MEDS: CHOLECALCIFEROL 25 MCG (1000 IU) TABLET PO SCH (08:17)
[2020-09-12] MEDS: ENOXAPARIN 40 MG/0.4 ML SYRINGE SQ SCH ×2 (08:17→20:41)
[2020-09-12] MEDS: ATORVASTATIN 80 MG TAB PO SCH (08:17)
[2020-09-12] MEDS: ZINC SULFATE 220 MG CAP PO SCH (08:17)
[2020-09-12] MEDS: ASCORBIC ACID 500 MG TAB PO SCH ×2 (08:17→20:40)
[2020-09-12] MEDS: FAMOTIDINE 20 MG TAB PO SCH ×2 (08:18→20:40)
[2020-09-12] MEDS: allopurinoL 300 MG TAB PO SCH (08:18)
[2020-09-12] MEDS: amLODIPine 10 MG TAB PO SCH (08:18)
[2020-09-12] MEDS: METOPROLOL TARTRATE 12.5 MG TAB PO SCH ×2 (08:18→20:40)
[2020-09-12] MEDS: ALPRAZolam 0.5 MG TAB PO PRN ×2 (08:23→20:40)
[2020-09-12] MEDS: guaiFENesin-Coden 100-10MG/5ML 10 ML CUP PO PRN (08:23)
[2020-09-12] MEDS: ALBUTEROL HFA INHALER INHALATION SCH ×4 (09:38→19:15)
[2020-09-12] MEDS: FAT EMULSION 20% 250 ML IV SCH (10:00)
[2020-09-12] MEDS: 1: MVI, ADULT NO.4 WITH VIT K 10 ML, TRACE (CONC-1ML/DOSE) 1 ML, SODIUM ACETATE 30 MEQ, IV SCH ×14 (10:01→10:58)
[2020-09-12] MEDS: SODIUM CHLORIDE 0.9% 1,000 ML IV SCH (10:59)
--- NOTE | 2020-09-12 11:42 | P.PN ---
Subjective Progress Note Date: 09/12/20 54-year-old white male patient who is an ex smoker, carries [id number] smoking history quit smoking 1 year ago in May, history of hypertension and gout who sees Dr. Contreras, presented to the emergency department on 08/02/2020 with complaints of worsening shortness of breath, cough, and patient was diagnosed with Covid 19 one week ago, was tested at [facility] per Dr. Contreras's order. 2 weeks ago he had symptoms of flulike illness, sore throat, shortness of breath, weakness, muscle aches which progressively became worse, and patient developed worsening shortness of breath and had difficulty breathing and ambulating at home. He was placed on Decadron [address] Contreras and he has 1-1/2 days worth left of it. Chest x-ray in the emergency department showed bilateral interstitial pneumonia. White blood cell count was 33.1, d-dimer was greater than 35.2, CO2 is 16, the rest of electrolytes were unremarkable, B1 is 35 creatinine is 1.04, plasma lactic acid is 4.5, patient was given IV fluids and lactic acid came down to 1.8, total bilirubin was 1.6, AST is 107, ALT is 48 , alkaline phosphatase is 114, LDH is 5924, first troponin was 4.190, and the second one went up to 6.960. CRP is 180.3, pro-calcitonin level is 0.33, urinalysis showed 1+ protein, but no definite sign of infection, pulse ox is 86 on room air, patient has significant shortness of breath, and was placed on BiPAP support, currently with pressures of 12/6, and FiO2 of 100% on which he remains this morning, he is afebrile, hemodynamically he is stable, she was started on IV Decadron, we'll start him on intermediate dose of Lovenox 50 mg every 12 hours, CTA chest shows no evidence of pulmonary embolism, and extensive pulmonary infiltrates that are mostly interstitial consistent with severe inter stitial pneumonia. Progress note dated 09/04/2020. 54-year-old male, admitted with a diagnosis of COVID 19 pneumonitis. Currently, he is on BiPAP at 12/6 and 90%. FiO2 will be dropped down to 80%. In addition, he is getting saline at 75 mL an hour. The patient's doing better today. He states that he feels better. He still short of breath with activity. I did tell him today to make sure he moves around in bed when he is laying in bed. White count 29.3, hemoglobin 14.6, hematocrit 42.7, platelet count 140,000. D- dimer greater than 34.10. Sodium 136, potassium 5.1, chlorides 105, CO2 25, anion gap 6, BUN 39, creatinine 0.9. LDH is 3965. C-reactive protein 143. Chest x-ray shows a worsening pattern of bilateral airspace disease. Progress note dated 09/05/2020. 54-year-old male, admitted with a diagnosis of COVID 19 pneumonitis. He remains on BiPAP with an FiO2 of 80%. Settings included an IPAP 12, EPAP 6. The patient states that he feels a bit better. He is getting saline at 75 mL an hour. He feels like he is breathing is improved. He does know to move about in bed. No new laboratory data today. His most recent chest x-ray was from yesterday and was reviewed. The patient's on appropriate medications. Progress note dated 09/06/2020. 54-year-old male, seen again today. The patient is on BiPAP, settings of IPAP 12, EPAP 6, and 90%. He is also getting saline at 75 mL an hour. Was admitted with a diagnosis of acute hypoxemic respiratory failure secondary to COVID 19 pneumonia. The patient feels about the same. No better or no worse. He will have a chest x-ray tomorrow. Labs are reviewed. White count 19.3, hemoglobin 15, hematocrit 43.9, and platelet count 92,000. Sodium 135, potassium 4.9, chlorides 109, CO2 20, anion gap 6, BUN 34, and creatinine 0.92. There is no recent chest x-ray to review. The patient is seen today 09/07/2020 in follow-up on the selective care unit. He is currently resting comfortably in bed. States he is doing a little better today compared to yesterday. He is still requiring BiPAP support 12/6 and 100% FiO2. Chest x-ray reveals stable bilateral lung infiltrates. Blood glucose 163. He remains on bronchodilators, vitamin supplements, dexamethasone, Lovenox. 0.9 normal saline at 75 ML's per hour. On 09/08/2020, the patient is being seen in follow-up on the [facility] units. The patient is a 54-year-old male patient with Covid 19 related pneumonia and the patient has diffuse stable by the pulmonary infiltrates. The patient remains on Decadron. The patient is also on Lovenox 40 mg subcu every 12 hours. The patient is also requiring BiPAP for respiratory support at a pressure of 12/6 cm of water and FiO2 of 100%. The patient is able to generate a tidal volume of 800 mL of the respiratory rate of 24 and a minute ventilation of 23 L. The patient Has elevated inflammatory markers and the last time the markers were checked were on 09/04/2020 with an LDH of 3965 and a CRP of 142. Levels will need to be rechecked. The d-dimer was above 34. The LDH level remains elevated at 3911. D-dimer is 24.6. The patient is also on IV fluids with normal saline at the rate of 75 mL an hour. The patient is on Decadron 6 because IV every 24 hours. The patient is also on Lovenox 40 mg subcu every 12 hours. His current BMI 31.5. On 09/09/2020, the patient is being seen for a follow-up. The patient continues to be on a BiPAP at a pressure of 12/6 cm of water with an FiO2 of 100%. The patient is awake and he requires assistance to be moved around. His tidal volume is in the order of 800 mL which is comparable to yesterday. A repeat chest x-ray was done and it shows some limited improvement in the bilateral pulmonary infiltrates. the patient remains on Decadron and the dose is currently at 60 mg IV every 12 hours. inflammatory markers are elevated with an LDH level of 3 911 and the CRP is 22.5. His d-dimer is still elevated at 24.6 and the patient is on Lovenox at a dose of 40 mg subcu every 12 hours.. On his problem continue to be the patient's hypoxemia, Covid 19 related pneumonia and global weakness. Unfortunately, the patient is unable to eat as the patient desaturates significantly was taken off the BiPAP. 09/10/2020 the patient remains BiPAP dependent at the pressure of 12/6 cm of water. His FiO2 is still 100%. He was still able to generate adequate tidal volumes while being on a BiPAP. He has had a PICC line yesterday as the patient was not meeting his caloric requirements and I was also contemplating the possibility of TPN. His chest x-ray remains unchanged with diffuse bilateral infiltrates consistent with Covid 19 related pneumonia. His blood work is showing a d-dimer of 24 from 2 days ago. Electrolytes are normal, and no new inflammatory markers. The current pulse ox is 92% on a BiPAP and the patient remains on Decadron 6 mg IV every 12 hours. 09/11/2020, the patient remains on a BiPAP at a pressure of 12/6 and FiO2 of 100%. He is quite lethargic. He is in mild degree of respiratory distress even at rest while on the BiPAP. Current pulse ox is 89%. A PICC line was inserted yesterday and the patient was also started on TPN for nutritional support knowing that he was able to eat and he was not meeting his caloric requirements. His d-dimer is 15. The patient is on Lovenox 50 mg subcu every 12 hours. The patient is also receiving Decadron 6 mg IV 12 hours. Current pulse ox is around 89%. No major changes condition since yesterday. No other new labs otherwise. His resting in bed comfortably. He is generating tidal volumes above >600cc with respiratory rate in the mid 20s. He had no signs of any fluid overload. Mentation is preserved. Looks lethargic. He is able to answer questions and following commands. No other significant issues otherwise for now. I will today's condition is essentially stable since yesterday. 09/12/2020 the patient remains on BiPAP 12/6 cm of water with an FiO2 of 100%. Condition is essentially the same and unchanged compared to yesterday. The patient is currently on a pulse ox of 94% on above-mentioned BiPAP setting. He remains on Decadron 6 mg IV every 12 hours. He also is on Lovenox 50 mg subcu every 12 hours. He has an LDH level of 5040 at a CRP of 8.2. His inflammatory markers were obtained yesterday and they were quite elevated. He is still able to generate tidal volumes above 500 and his respiratory rate currently is in the 00s for now. Chest x-ray is consistent with diffuse bilateral pulmonary infiltrates. He has a PICC line in his left upper extremity and the patient is receiving TPN for nutritional support. As mentioned, he remains weak and lethargic. He is arousable and follows commands and answering questions. Objective - Vital Signs Vital signs: Vital Signs Temp 97.6 F 09/12/20 08:00 Pulse 71 09/12/20 08:00 Resp 24 09/12/20 08:00 BP 130/74 09/12/20 08:00 Pulse Ox 94 L 09/12/20 09:38 Intake & Output 09/11/20 09/12/20 09/12/20 18:59 06:59 18:59 Intake Total 4991 382 5178 Output Total 600 350 Balance 4757 772 4748 Weight 93.5 kg 93.5 kg Intake: Intake, IV Titration 9697 292 7694 Amount Mvi, Adult No.4 with Vit 1683 1043 K 10 ml Trace (Conc-1Ml/ Dose) 1 ml Sodium Acetate 30 meq Potassium Chloride 10 meq Calcium Gluconate 1 gm Sodium Phosphate 6 mmol In Amino Acid 5%-D15w 1,000 ml @ 90 mls/hr IV .BY DURATION SPENSER Rx#:[id number] Sodium Acetate 30 meq 540 Potassium Chloride 10 meq Calcium Gluconate 1 gm Sodium Phosphate 6 mmol In Amino Acid 5%-D15w 1, 000 ml @ 90 mls/hr IV .BY DURATION SPENSER Rx#: [id number] Sodium Chloride 0.9% 1, 120 000 ml @ 20 mls/hr IV . Q24H SPENSER Rx#:[id number] Oral 240 Output: Urine 600 350 Stool 0 Other: Voiding Method Urinal # Voids 1 - Exam GENERAL EXAM: Alert, pleasant 54-year-old gentleman, on BiPAP 12/6 100% FiO2, comfortable in mild respiratory distress. HEAD: Normocephalic. EYES: Normal reaction of pupils, equal size. NOSE: Clear with pink turbinates. THROAT: No erythema or exudates. NECK: No masses, no JVD. CHEST: No chest wall deformity. LUNGS: Equal air entry with crackles in the bilateral posterior bases. CVS: S1 and S2 normal with no audible murmur, regular rhythm. ABDOMEN: No hepatosplenomegaly, normal bowel sounds, no guarding or rigidity. SPINE: No scoliosis or deformity SKIN: No rashes CENTRAL NERVOUS SYSTEM: No focal deficits, tone is normal in all 4 extremities. EXTREMITIES: There is no peripheral edema. No clubbing, no cyanosis. Peripheral pulses are intact. - Labs CBC & Chem 7: 09/06/20 08:33 09/11/20 07:08 Labs: Abnormal Lab Results - Last 24 Hours (Table) 09/11/20 09/11/20 09/11/20 Range/Units 07:08 11:42 17:53 Sodium 135 L (137-145) mmol/L BUN 25 H (9-20) mg/dL POC Glucose (mg/dL) 140 H 135 H (75-99) mg/dL Lactate Dehydrogenase 5040 H (313-618) U/L 09/12/20 09/12/20 Range/Units 00:32 06:02 Sodium (137-145) mmol/L BUN (9-20) mg/dL POC Glucose (mg/dL) 144 H 104 H (75-99) mg/dL Lactate Dehydrogenase (313-618) U/L Assessment and Plan Plan: 1 Acute hypoxemic respiratory failure secondary to COVID 19 pneumonitis. Patie nt received tocilizumab and convalescent plasma, the patient is currently on Decadron 6 and the grams every 12 hours and the patient is also on Lovenox 40 mg subcu every 12 hours. Very much BiPAP dependent. TPN was initiated. Chest x- ray showing some worsening of the left-sided pulmonary infiltration. Has diffuse bilateral pulmonary infiltrates consistent with COVID 19 Pneumonia. Stable and BiPAP dependent and still struggling with his breathing and required shortness of breath even while in the BiPAP. We will avoid intubation would proceed with noninvasive positive pressure ventilation for now. He desaturates is oxygen easily when he coughs or speaks 2 History of hypertension. 3 Former tobacco use. 4 Mildly elevated troponins, without chest pain. Plan: Still requiring BiPAP 12/6 and 100% FiO2, we'll try to wean down the FiO2 as tolerated Titrate down the FiO2 as tolerated Continued on dexamethasone, 6 mg IV every 12 hours Lovenox 50 mg subcu every 12 hours vitamin supplements convalescent plasma x1 given Received Actemra x1 Repeat inflammatory markers in the a.m., LDH and d-dimer is remain elevated PICC line inserted and the patient was started on TPN for nutritional support IV fluids to KVO Chest x-ray was noted No clinical change improvement or progression since yesterday. Continue same treatment. Obtain a follow-up chest x-ray. Inflammatory markers tomorrow. We'll continue to follow. The patient has been in the hospital for the past 10 days. High likelihood for respiratory failure, intubation mechanical ventilation. We'll monitor closely. We will continue to follow.
[2020-09-12 12:06] LABS: Glucose,Whole Blood 138 mg/dL (75-99)
[2020-09-12 12:16] LABS: HGB 15.6 gm/dL (13.0-17.5); MCHC 32.6 g/dL (31.0-37.0); MCV 92.1 fL (80.0-100.0); Mean Platelet Volume 8.8; Platelet Count 121 k/uL (150-450); RBC 5.21 m/uL (4.30-5.90); RDW 15.1 % (11.5-15.5); WBC 24.6 k/uL (3.8-10.6)
[2020-09-12 12:42] LABS: African American GFR (CKD) >90 (>60 ml/min/1.73 sqM); Anion Gap 10 mmol/L; Blood Urea Nitrogen 29 mg/dL (9-20); Calcium 8.7 mg/dL (8.4-10.2); Carbon Dioxide 18 mmol/L (22-30); Chloride 104 mmol/L (98-107); Glucose 143 mg/dL (74-99); Magnesium 2.1 mg/dL (1.6-2.3); Non-African American GFR(CKD) >90 (>60 ml/min/1.73 sqM); Phosphorus 3.9 mg/dL (2.5-4.5); Potassium 4.4 mmol/L (3.5-5.1); Sodium 132 mmol/L (137-145)
--- NOTE | 2020-09-12 14:10 | XR ---
EXAMINATION TYPE: XR chest 1V portable DATE OF EXAM: 09/12/2020 COMPARISON: 09/11/2020 HISTORY: Cough TECHNIQUE: Single frontal view of the chest is obtained. FINDINGS: Diffuse interstitial and alveolar mixed infiltrates are stable. PICC line stable. No pneum othorax. Pleural thickening or tiny pleural effusions. IMPRESSION: Bilateral diffuse infiltrate stable.
--- NOTE | 2020-09-12 15:50 | P.PN ---
Subjective Progress Note Date: 09/12/20 Principal diagnosis: Acute hypoxic respiratory failure: Secondary to Covid 19 54-year-old male came in with complaints of shortness of breath cough. Episodes of diarrhea nausea, generalized body aches and fevers at home patient was diagnosed with Covid 19 about a week ago patient's symptoms can you to get worse and patient is more short of breath because of which patient came to ER found to be hypoxic was started on IV fluids and patient has elevated inflammatory markers along with elevated troponin of 4.190 which of and up to 6.960 was started on IV heparin Decadron subsequently admitted. Patient had a CT of the chest which did not show any PE but did show extensive pulmonary infiltrates had an echocardiogram as well which did not show any significant abnormality. Cardiology and pulmonology were consulted. Patient is on heparin 50 twice a day which will be switched to anticoagulation those that is 90 twice a day testing elevation of troponin. 09/12/2020 Patient is seen and evaluated on follow-up; remains on BiPAP 12/6 cm of water with an FiO2 of 100%. Condition is essentially the same and unchanged compared to yesterday. The patient is currently on a pulse ox of 94% on above-mentioned BiPAP setting. He remains on Decadron 6 mg IV every 12 hours. He also is on Lovenox 50 mg subcu every 12 hours. He has an LDH level of 5040 at a CRP of 8.2. His inflammatory markers were obtained yesterday and they were quite elevated. He is still able to generate tidal volumes above 500 and his respir atory rate currently is in the 00s for now. Chest x-ray is consistent with diffuse bilateral pulmonary infiltrates. He has a PICC line in his left upper extremity and the patient is receiving TPN for nutritional support. As mentioned, he remains weak and lethargic. Pulmonary service on board; plan to titrate FiO2 down as able; patient did receive Actemra 1; continue to follow-up on inflammatory markers Objective - Vital Signs Vital signs: Vital Signs Temp 97.6 F 09/12/20 08:00 Pulse 71 09/12/20 08:00 Resp 24 09/12/20 08:00 BP 130/74 09/12/20 08:00 Pulse Ox 94 L 09/12/20 09:38 Intake & Output 09/11/20 09/12/20 09/12/20 18:59 06:59 18:59 Intake Total 7941 475 2470 Output Total 600 350 Balance 4520 272 1497 Weight 93.5 kg 93.5 kg Intake: Intake, IV Titration 9566 503 5319 Amount Mvi, Adult No.4 with Vit 1683 1043 K 10 ml Trace (Conc-1Ml/ Dose) 1 ml Sodium Acetate 30 meq Potassium Chloride 10 meq Calcium Gluconate 1 gm Sodium Phosphate 6 mmol In Amino Acid 5%-D15w 1,000 ml @ 90 mls/hr IV .BY DURATION SPENSER Rx#:[id number] Sodium Acetate 30 meq 540 Potassium Chloride 10 meq Calcium Gluconate 1 gm Sodium Phosphate 6 mmol In Amino Acid 5%-D15w 1, 000 ml @ 90 mls/hr IV .BY DURATION SPENSER Rx#: [id number] Sodium Chloride 0.9% 1, 120 000 ml @ 20 mls/hr IV . Q24H SPENSER Rx#:[id number] Oral 240 Output: Urine 600 350 Stool 0 Other: Voiding Method Urinal # Voids 1 - Exam GENERAL: The patient is resting, not in any acute distress. Well developed, well nourished. Not in respiratory distress on BiPAP HEENT: Pupils are round and equally reacting to light. EOMI. No scleral icterus. No conjunctival pallor. Normocephalic, atraumatic. No pharyngeal erythema. No thyromegaly. CARDIOVASCULAR: S1 and S2 present. No murmurs, rubs, or gallops. PULMONARY: Chest is clear to auscultation, no wheezing or crackles. ABDOMEN: Soft, nontender, nondistended, normoactive bowel sounds. No palpable organomegaly. MUSCULOSKELETAL: No joint swelling or deformity. EXTREMITIES: No cyanosis, clubbing, or pedal edema. NEUROLOGICAL: Gross neurological examination did not reveal any focal deficits. SKIN: No rashes. - Labs CBC & Chem 7: 09/12/20 11:00 09/12/20 11:00 Labs: Abnormal Lab Results - Last 24 Hours (Table) 09/11/20 09/11/20 09/11/20 Range/Units 07:08 11:42 17:53 Sodium 135 L (137-145) mmol/L BUN 25 H (9-20) mg/dL POC Glucose (mg/dL) 140 H 135 H (75-99) mg/dL Lactate Dehydrogenase 5040 H (313-618) U/L 09/12/20 09/12/20 Range/Units 00:32 06:02 Sodium (137-145) mmol/L BUN (9-20) mg/dL POC Glucose (mg/dL) 144 H 104 H (75-99) mg/dL Lactate Dehydrogenase (313-618) U/L Assessment and Plan Assessment: -Acute hypoxic respiratory failure: Secondary to Covid 19. Patient was started on Decadron, vitamins. Patient is out of the window for Remdesivir, he received Tocilizumab and 1 unit of convalescent plasma., Patient is presently on BiPAP 100% FiO2. Patient has a highly elevated BNP because of which she is on DVT prophylaxis at 40 twice a day of Lovenox, patient was negative for PE because of which I'm not using anticoagulation dose of Lovenox. -Lactic acidosis resolved with IV fluids -Hypertension -Ruled out PE -Elevated troponins secondary to type II TN secondary to hypoxemia -GI prophylaxis with Pepcid
[2020-09-12 16:19] LABS: LDH 3897 U/L (313-618)
[2020-09-12 16:58] LABS: Glucose,Whole Blood 179 mg/dL (75-99)
[2020-09-12] MEDS: BENZONATATE 100 MG CAP PO PRN (17:56)
[2020-09-12] MEDS: guaiFENesin SYRUP 100MG/5ML 200 MG/10 ML CUP PO PRN (23:40)
[2020-09-13 00:03] LABS: Glucose,Whole Blood 122 mg/dL (75-99)
[2020-09-13] MEDS ORDERED: LORazepam 2 MG/ML INJ IV STA (00:29)
--- NOTE | 2020-09-13 01:06 | P.EN ---
A team note 54 year old male with hypertension , admitted for acute hypoxic respiratory failure secondary to covid patient has been on bipap for over a week he is awake , alert, oriented to place, person , time, very anxious and cant breath in synchrony with the bipap, looks diaphoretic, denies any chest pain lungs, good breath sounds bilaterally legs, no leg edema bilaterally abd soft CXR showes bilateral patchy infiltrates, no pleural effusion patient seems to be claustrophobic , and feeling anxious with the mask . acute hypoxemic respiratory failure , secondary to covid hypertension plan ativan 1 mg IV patient seems to tolerate the treatment better, oxygen sat is in upper 80s to 90% continue to monitor closely 32 minutes were spent in critical care service in the care of this patient
[2020-09-13] MEDS ORDERED: ROCURONIUM 10 MG/ML (5 ML VIAL) IV ONE (03:00)
[2020-09-13] MEDS ORDERED: PROPOFOL 10 MG/ML 20 ML VIAL IV ONE (03:00)
[2020-09-13] MEDS ORDERED: SUCCINYLCHOLINE CHLORIDE VIAL 200 MG/10 ML VIAL IV ONE (03:00)
[2020-09-13 03:02] LABS: Allen Test Performed? Yes
[2020-09-13] MEDS ORDERED: propofoL 100 ML IV ONE (03:02)
[2020-09-13 03:03] LABS: ABG HCO3 23 mmol/L (21-25); ABG PCO2 41 mmHg (35-45); ABG PH 7.36 (7.35-7.45); ABG PO2 41 mmHg (83-108); ABG TCO2 25 mmol/L (19-24)
--- NOTE | 2020-09-13 03:55 | XR ---
EXAM: XR Chest, 1 View CLINICAL HISTORY: ITS.REASON XR Reason: Tube placement TECHNIQUE: Frontal view of the chest. COMPARISON: 09/12/2020 FINDINGS: Lungs: Diffuse interstitial and subsegmental alveolar airspace disease with mild improvement in the patchy opacities in the peripheral left midlung zone. Pleural space: Unremarkable. No pneumothorax. No large pleural effusion. Heart: Unremarkable. No cardiomegaly. Mediastinum: Stable. The trachea is midline. Bones/joints: Unremarkable. Tubes, lines and devices: An endotracheal tube is been placed with the tip approximately 5.7 cm from the roseline. A nasogastric tube traverses the mediastinum and extends into the abdomen, the tip is not identified. A left arm PICC is identified with the tip in the superior vena cava, slightly retracted from the previous exam. IMPRESSION: 1. An endotracheal tube is been placed with the tip approximately 5.7 cm from the roseline. Remaining support tubes and lines, as detailed above. 2. Diffuse interstitial and subsegmental alveolar airspace disease with mild improvement in the patchy opacities in the peripheral left midlung zone. No large pleural effusion or pneumothorax.
[2020-09-13 04:57] LABS: ABG HCO3 26 mmol/L (21-25); ABG PCO2 61 mmHg (35-45); ABG PH 7.22 (7.35-7.45); ABG PO2 89 mmHg (83-108); Allen Test Performed? Yes
[2020-09-13 04:58] LABS: ABG Base Excess -2.1 mmol/L; ABG TCO2 27 mmol/L (19-24)
[2020-09-13] MEDS: CISATRACURIUM 200 MG in SODIUM CHLORIDE 0.9% 180 ML IV SCH ×2 (05:40→16:22)
--- NOTE | 2020-09-13 06:07 | P.PN ---
Subjective Progress Note Date: 09/13/20 54-year-old white male patient who is an ex smoker, carries [id number] smoking history quit smoking 1 year ago in May, history of hypertension and gout who sees Dr. Contreras, presented to the emergency department on 08/02/2020 with complaints of worsening shortness of breath, cough, and patient was diagnosed with Covid 19 one week ago, was tested at [facility] per Dr. Contreras's order. 2 weeks ago he had symptoms of flulike illness, sore throat, shortness of breath, weakness, muscle aches which progressively became worse, and patient developed worsening shortness of breath and had difficulty breathing and ambulating at home. He was placed on Decadron [address] Contreras and he has 1-1/2 days worth left of it. Chest x-ray in the emergency department showed bilateral interstitial pneumonia. White blood cell count was 33.1, d-dimer was greater than 35.2, CO2 is 16, the rest of electrolytes were unremarkable, B1 is 35 creatinine is 1.04, plasma lactic acid is 4.5, patient was given IV fluids and lactic acid came down to 1.8, total bilirubin was 1.6, AST is 107, ALT is 48 , alkaline phosphatase is 114, LDH is 5924, first troponin was 4.190, and the second one went up to 6.960. CRP is 180.3, pro-calcitonin level is 0.33, urinalysis showed 1+ protein, but no definite sign of infection, pulse ox is 86 on room air, patient has significant shortness of breath, and was placed on BiPAP support, currently with pressures of 12/6, and FiO2 of 100% on which he remains this morning, he is afebrile, hemodynamically he is stable, she was started on IV Decadron, we'll start him on intermediate dose of Lovenox 50 mg every 12 hours, CTA chest shows no evidence of pulmonary embolism, and extensive pulmonary infiltrates that are mostly interstitial consistent with severe inter stitial pneumonia. Progress note dated 09/04/2020. 54-year-old male, admitted with a diagnosis of COVID 19 pneumonitis. Currently, he is on BiPAP at 12/6 and 90%. FiO2 will be dropped down to 80%. In addition, he is getting saline at 75 mL an hour. The patient's doing better today. He states that he feels better. He still short of breath with activity. I did tell him today to make sure he moves around in bed when he is laying in bed. White count 29.3, hemoglobin 14.6, hematocrit 42.7, platelet count 140,000. D- dimer greater than 34.10. Sodium 136, potassium 5.1, chlorides 105, CO2 25, anion gap 6, BUN 39, creatinine 0.9. LDH is 3965. C-reactive protein 143. Chest x-ray shows a worsening pattern of bilateral airspace disease. Progress note dated 09/05/2020. 54-year-old male, admitted with a diagnosis of COVID 19 pneumonitis. He remains on BiPAP with an FiO2 of 80%. Settings included an IPAP 12, EPAP 6. The patient states that he feels a bit better. He is getting saline at 75 mL an hour. He feels like he is breathing is improved. He does know to move about in bed. No new laboratory data today. His most recent chest x-ray was from yesterday and was reviewed. The patient's on appropriate medications. Progress note dated 09/06/2020. 54-year-old male, seen again today. The patient is on BiPAP, settings of IPAP 12, EPAP 6, and 90%. He is also getting saline at 75 mL an hour. Was admitted with a diagnosis of acute hypoxemic respiratory failure secondary to COVID 19 pneumonia. The patient feels about the same. No better or no worse. He will have a chest x-ray tomorrow. Labs are reviewed. White count 19.3, hemoglobin 15, hematocrit 43.9, and platelet count 92,000. Sodium 135, potassium 4.9, chlorides 109, CO2 20, anion gap 6, BUN 34, and creatinine 0.92. There is no recent chest x-ray to review. The patient is seen today 09/07/2020 in follow-up on the selective care unit. He is currently resting comfortably in bed. States he is doing a little better today compared to yesterday. He is still requiring BiPAP support 12/6 and 100% FiO2. Chest x-ray reveals stable bilateral lung infiltrates. Blood glucose 163. He remains on bronchodilators, vitamin supplements, dexamethasone, Lovenox. 0.9 normal saline at 75 ML's per hour. On 09/08/2020, the patient is being seen in follow-up on the [facility] units. The patient is a 54-year-old male patient with Covid 19 related pneumonia and the patient has diffuse stable by the pulmonary infiltrates. The patient remains on Decadron. The patient is also on Lovenox 40 mg subcu every 12 hours. The patient is also requiring BiPAP for respiratory support at a pressure of 12/6 cm of water and FiO2 of 100%. The patient is able to generate a tidal volume of 800 mL of the respiratory rate of 24 and a minute ventilation of 23 L. The patient Has elevated inflammatory markers and the last time the markers were checked were on 09/04/2020 with an LDH of 3965 and a CRP of 142. Levels will need to be rechecked. The d-dimer was above 34. The LDH level remains elevated at 3911. D-dimer is 24.6. The patient is also on IV fluids with normal saline at the rate of 75 mL an hour. The patient is on Decadron 6 because IV every 24 hours. The patient is also on Lovenox 40 mg subcu every 12 hours. His current BMI 31.5. On 09/09/2020, the patient is being seen for a follow-up. The patient continues to be on a BiPAP at a pressure of 12/6 cm of water with an FiO2 of 100%. The patient is awake and he requires assistance to be moved around. His tidal volume is in the order of 800 mL which is comparable to yesterday. A repeat chest x-ray was done and it shows some limited improvement in the bilateral pulmonary infiltrates. the patient remains on Decadron and the dose is currently at 60 mg IV every 12 hours. inflammatory markers are elevated with an LDH level of 3 911 and the CRP is 22.5. His d-dimer is still elevated at 24.6 and the patient is on Lovenox at a dose of 40 mg subcu every 12 hours.. On his problem continue to be the patient's hypoxemia, Covid 19 related pneumonia and global weakness. Unfortunately, the patient is unable to eat as the patient desaturates significantly was taken off the BiPAP. 09/10/2020 the patient remains BiPAP dependent at the pressure of 12/6 cm of water. His FiO2 is still 100%. He was still able to generate adequate tidal volumes while being on a BiPAP. He has had a PICC line yesterday as the patient was not meeting his caloric requirements and I was also contemplating the possibility of TPN. His chest x-ray remains unchanged with diffuse bilateral infiltrates consistent with Covid 19 related pneumonia. His blood work is showing a d-dimer of 24 from 2 days ago. Electrolytes are normal, and no new inflammatory markers. The current pulse ox is 92% on a BiPAP and the patient remains on Decadron 6 mg IV every 12 hours. 09/11/2020, the patient remains on a BiPAP at a pressure of 12/6 and FiO2 of 100%. He is quite lethargic. He is in mild degree of respiratory distress even at rest while on the BiPAP. Current pulse ox is 89%. A PICC line was inserted yesterday and the patient was also started on TPN for nutritional support knowing that he was able to eat and he was not meeting his caloric requirements. His d-dimer is 15. The patient is on Lovenox 50 mg subcu every 12 hours. The patient is also receiving Decadron 6 mg IV 12 hours. Current pulse ox is around 89%. No major changes condition since yesterday. No other new labs otherwise. His resting in bed comfortably. He is generating tidal volumes above >600cc with respiratory rate in the mid 20s. He had no signs of any fluid overload. Mentation is preserved. Looks lethargic. He is able to answer questions and following commands. No other significant issues otherwise for now. I will today's condition is essentially stable since yesterday. 09/12/2020 the patient remains on BiPAP 12/6 cm of water with an FiO2 of 100%. Condition is essentially the same and unchanged compared to yesterday. The patient is currently on a pulse ox of 94% on above-mentioned BiPAP setting. He remains on Decadron 6 mg IV every 12 hours. He also is on Lovenox 50 mg subcu every 12 hours. He has an LDH level of 5040 at a CRP of 8.2. His inflammatory markers were obtained yesterday and they were quite elevated. He is still able to generate tidal volumes above 500 and his respiratory rate currently is in the 00s for now. Chest x-ray is consistent with diffuse bilateral pulmonary infiltrates. He has a PICC line in his left upper extremity and the patient is receiving TPN for nutritional support. As mentioned, he remains weak and lethargic. He is arousable and follows commands and answering questions. 09/13/2020, the patient got transferred to the intensive care unit where the patient got intubated and placed on a mechanical ventilator. Note that the patient was maintaining relatively fine on the BiPAP and ultimately desaturates., Became more short of breath and unresponsive in the blood. Showed significant hypoxemia and he had to come in to the ICU where he was intubated and placed on a mechanical ventilator. At this point and he is sedated with propofol running at 50 mcg/kg per minute and the patient is also paralyzed with Nimbex at 3 mcg/kg per minute. He is currently on assist control mode at the rate of 32 with a tidal volume of 400 and FiO2 of 1% with a PEEP of 15. The blood gases post intubation showed a pH of 7.22 and a pCO2 of 61 and pO2 of 89. His chest x-ray showing adequate positioning of ET tube. He has diffuse bilateral pulmonary infiltrates consistent with Covid 19 related pneumonia. Peak airway pressure 38. Static pressures 34. He is well rested and paralyzed for now. His BP currently is running at 156/59 and the patient was quite hypertensive prior to his intubation. His blood pressure came up to 182/110 and currently it's more stable. Labs are still pending for now. Meanwhile, the patient remains on Decadron 6 mg IV every 12 hours. Is also on Lovenox 40 mg subcu twice a day. He was receiving TPN for nutritional support as the patient was unable to take any form of oral intake as he was very much BiPAP dependent. TPN will be discontinued and the patient will be transitioned to enteral feeding note that he is currently intubated on a mechanical ventilator. A central line was also inserted. IV fluids are running at the rate of 20 mL an hour of normal saline. TPN Is currently running at 90 mL an hour. Objective - Vital Signs Vital signs: Vital Signs Temp 96.5 F L 09/13/20 00:00 Pulse 99 09/13/20 05:00 Resp 30 H 09/13/20 05:00 BP 158/80 09/13/20 04:00 Pulse Ox 85 L 09/13/20 05:00 Intake & Output 09/12/20 09/12/20 09/13/20 06:59 18:59 06:59 Intake Total 900 1043 234.773 Output Total 350 375 315 Balance 550 668 -80.227 Weight 93.5 kg 93.5 kg Intake: IV 220 Mvi, Adult No.4 with Vit 180 K 10 ml Trace (Conc-1Ml/ Dose) 1 ml Sodium Acetate 30 meq Potassium Chloride 10 meq Calcium Gluconate 1 gm Sodium Phosphate 6 mmol In Amino Acid 5%-D15w 1,000 ml @ 90 mls/hr IV .BY DURATION SPENSER Rx#:[id number] Sodium Chloride 0.9% 1, 40 000 ml @ 20 mls/hr IV . Q24H SPENSER Rx#:[id number] Intake, IV Titration 660 1043 14.773 Amount Cisatracurium 200 mg In 0.842 Sodium Chloride 0.9% 180 ml @ 1 MCG/KG/MIN 5.61 mls/hr IV .Q24H SPENSER Rx#: [id number] Mvi, Adult No.4 with Vit 1043 K 10 ml Trace (Conc-1Ml/ Dose) 1 ml Sodium Acetate 30 meq Potassium Chloride 10 meq Calcium Gluconate 1 gm Sodium Phosphate 6 mmol In Amino Acid 5%-D15w 1,000 ml @ 90 mls/hr IV .BY DURATION SPENSER Rx#:[id number] Sodium Acetate 30 meq 540 Potassium Chloride 10 meq Calcium Gluconate 1 gm Sodium Phosphate 6 mmol In Amino Acid 5%-D15w 1, 000 ml @ 90 mls/hr IV .BY DURATION SPENSER Rx#: [id number] Sodium Chloride 0.9% 1, 120 000 ml @ 20 mls/hr IV . Q24H SPENSER Rx#:[id number] propofoL 1,000 mg In 13.931 Empty Bag 1 bag @ Titrate IV .Q0M SPENSER Rx#: [id number] Oral 240 0 Output: Urine 350 375 315 Stool 0 0 Other: Voiding Method Urinal Urinal # Voids 1 ABP, PAP, CO, CI - Last Documented Arterial Blood Pressure 127/78 - Exam GENERAL EXAM: Alert, pleasant 54-year-old gentleman, sedated, paralyzed, intu bated on a mechanical ventilator, currently on a combination of propofol and Nimbex. Orogastric and orotracheal tube are both in place. HEAD: Normocephalic. EYES: Normal reaction of pupils, equal size. NOSE: Clear with pink turbinates. THROAT: No erythema or exudates. NECK: No masses, no JVD. CHEST: No chest wall deformity. LUNGS: Equal air entry with crackles in the bilateral posterior bases. CVS: S1 and S2 normal with no audible murmur, regular rhythm. ABDOMEN: No hepatosplenomegaly, normal bowel sounds, no guarding or rigidity. SPINE: No scoliosis or deformity SKIN: No rashes CENTRAL NERVOUS SYSTEM: Sedated and paralyzed EXTREMITIES: There is no peripheral edema. No clubbing, no cyanosis. Peripheral pulses are intact. - Labs CBC & Chem 7: 09/12/20 11:00 09/12/20 11:00 Labs: Abnormal Lab Results - Last 24 Hours (Table) 09/11/20 09/12/20 09/12/20 Range/Units 07:08 06:02 11:00 WBC (3.8-10.6) k/uL Plt Count (150-450) k/uL ABG pH (7.35-7.45) ABG pCO2 (35-45) mmHg ABG pO2 (83-108) mmHg ABG HCO3 (21-25) mmol/L ABG Total CO2 (19-24) mmol/L ABG O2 Saturation (94-97) % Sodium 132 L (137-145) mmol/L Carbon Dioxide 18 L (22-30) mmol/L BUN 29 H (9-20) mg/dL Creatinine 0.65 L (0.66-1.25) mg/dL Glucose 143 H (74-99) mg/dL POC Glucose (mg/dL) 104 H (75-99) mg/dL Lactate Dehydrogenase 3897 H (313-618) U/L 09/12/20 09/12/20 09/12/20 Range/Units 11:00 11:43 16:47 WBC 24.6 H (3.8-10.6) k/uL Plt Count 121 L (150-450) k/uL ABG pH (7.35-7.45) ABG pCO2 (35-45) mmHg ABG pO2 (83-108) mmHg ABG HCO3 (21-25) mmol/L ABG Total CO2 (19-24) mmol/L ABG O2 Saturation (94-97) % Sodium (137-145) mmol/L Carbon Dioxide (22-30) mmol/L BUN (9-20) mg/dL Creatinine (0.66-1.25) mg/dL Glucose (74-99) mg/dL POC Glucose (mg/dL) 138 H 179 H (75-99) mg/dL Lactate Dehydrogenase (313-618) U/L 09/13/20 09/13/20 09/13/20 Range/Units 00:00 02:47 03:55 WBC (3.8-10.6) k/uL Plt Count (150-450) k/uL ABG pH 7.22 L (7.35-7.45) ABG pCO2 61 H (35-45) mmHg ABG pO2 41 L* (83-108) mmHg ABG HCO3 26 H (21-25) mmol/L ABG Total CO2 25 H 27 H (19-24) mmol/L ABG O2 Saturation 73.0 L (94-97) % Sodium (137-145) mmol/L Carbon Dioxide (22-30) mmol/L BUN (9-20) mg/dL Creatinine (0.66-1.25) mg/dL Glucose (74-99) mg/dL POC Glucose (mg/dL) 122 H (75-99) mg/dL Lactate Dehydrogenase (313-618) U/L Assessment and Plan Plan: 1 ARDS with hypoxemic respiratory failure secondary to COVID 19 pneumonitis. Patient received tocilizumab and convalescent plasma, the patient is currently on Decadron 6 and the grams every 12 hours and the patient is also on Lovenox 40 mg subcu every 12 hours. Very much BiPAP dependent. Decompensated early this morning and the patient had to be brought into the intensive care unit where he was sedated, paralyzed, intubated and placed on a mechanical ventilator. Currently on assist control mode, volume cycle, chest x-ray was noted and blood gas was noted. There is an improvement in his oxygenation postintubation. Currently on a PEEP of 15 with an FiO2 of 100%. Peak and static pressures are related and the patient has a very low P/f show and the findings are consistent with ARDS. 2 History of hypertension. 3 Former tobacco use. 4 elevated inflammatory markers including LDH secondary to above 5 we'll start enteral feeding for nutritional support and TPN will be discontinued. Plan: Keep the patient sedated and paralyzed with a combination of Nimbex and propofol Repeat blood gases and make further adjustments on the ventilator setting with a gradual wean off FiO2 Titrate down the FiO2 as tolerated Continued on dexamethasone, 6 mg IV every 12 hours Lovenox 50 mg subcu every 12 hours vitamin supplements convalescent plasma x1 given Received Actemra x1 Repeat inflammatory markers in the a.m., LDH and d-dimer and the levels are still pending for now PICC line inserted and we'll stop the TPN was started the patient on enteral feeding for nutritional support. We'll consult with dietary IV fluids to KVO Chest x-ray was noted Condition is critical. We'll continue to follow. Critically care evaluation, more than 30 minutes Time with Patient: Greater than 30
[2020-09-13 06:13] LABS: African American GFR (CKD) >90 (>60 ml/min/1.73 sqM); Anion Gap 7 mmol/L; Blood Urea Nitrogen 30 mg/dL (9-20); C Reactive Protein 2.9 mg/dL (<1.0); Calcium 8.5 mg/dL (8.4-10.2); Carbon Dioxide 26 mmol/L (22-30); Chloride 100 mmol/L (98-107); Glucose 156 mg/dL (74-99); Magnesium 2.1 mg/dL (1.6-2.3); Non-African American GFR(CKD) >90 (>60 ml/min/1.73 sqM); Phosphorus 5.4 mg/dL (2.5-4.5); Sodium 133 mmol/L (137-145)
[2020-09-13 08:11] LABS: LDH 4703 U/L (313-618)
[2020-09-13 08:38] LABS: ABG Base Excess -2.4 mmol/L; ABG HCO3 27 mmol/L (21-25); ABG Oxygen Saturation 89.6 % (94-97); ABG PO2 72 mmHg (83-108); ABG TCO2 29 mmol/L (19-24); Allen Test Performed? Yes
[2020-09-13 08:40] LABS: ABG PCO2 76 mmHg (35-45); ABG PH 7.15 (7.35-7.45)
[2020-09-13] MEDS: ALBUTEROL HFA INHALER INHALATION SCH ×4 (08:42→19:40)
[2020-09-13] MEDS: CHLORHEXIDINE GLUCONATE 15 ML CUP MUCOUS MEM SCH ×2 (09:04→20:00)
[2020-09-13] MEDS: ASCORBIC ACID 500 MG TAB PO SCH ×2 (09:04→20:00)
[2020-09-13] MEDS: ENOXAPARIN 40 MG/0.4 ML SYRINGE SQ SCH ×2 (09:04→20:00)
[2020-09-13] MEDS: FAMOTIDINE 20 MG TAB PO SCH ×2 (09:04→20:00)
[2020-09-13] MEDS: METOPROLOL TARTRATE 12.5 MG TAB PO SCH ×2 (09:04→20:00)
[2020-09-13] MEDS: ZINC SULFATE 220 MG CAP PO SCH (09:04)
[2020-09-13] MEDS: ATORVASTATIN 80 MG TAB PO SCH (09:04)
[2020-09-13] MEDS: ASPIRIN 81 MG PO SCH (09:05)
[2020-09-13] MEDS: amLODIPine 10 MG TAB PO SCH (09:05)
[2020-09-13] MEDS: DEXAMETHASONE SOD PHOSPHATE 10 MG/ML 1 ML VIAL IV SCH ×2 (09:05→20:00)
[2020-09-13] MEDS: CHOLECALCIFEROL 25 MCG (1000 IU) TABLET PO SCH (09:07)
[2020-09-13] MEDS: allopurinoL 300 MG TAB PO SCH (10:12)
[2020-09-13 11:44] LABS: Glucose,Whole Blood 171 mg/dL (75-99)
--- NOTE | 2020-09-13 15:44 | P.PN ---
Subjective Progress Note Date: 09/13/20 Principal diagnosis: Acute hypoxic respiratory failure: Secondary to Covid 19 54-year-old male came in with complaints of shortness of breath cough. Episodes of diarrhea nausea, generalized body aches and fevers at home patient was diagnosed with Covid 19 about a week ago patient's symptoms can you to get worse and patient is more short of breath because of which patient came to ER found to be hypoxic was started on IV fluids and patient has elevated inflammatory markers along with elevated troponin of 4.190 which of and up to 6.960 was started on IV heparin Decadron subsequently admitted. Patient had a CT of the chest which did not show any PE but did show extensive pulmonary infiltrates had an echocardiogram as well which did not show any significant abnormality. Cardiology and pulmonology were consulted. Patient is on heparin 50 twice a day which will be switched to anticoagulation those that is 90 twice a day testing elevation of troponin. 09/12/2020 Patient is seen and evaluated on follow-up; remains on BiPAP 12/6 cm of water with an FiO2 of 100%. Condition is essentially the same and unchanged compared to yesterday. The patient is currently on a pulse ox of 94% on above-mentioned BiPAP setting. He remains on Decadron 6 mg IV every 12 hours. He also is on Lovenox 50 mg subcu every 12 hours. He has an LDH level of 5040 at a CRP of 8.2. His inflammatory markers were obtained yesterday and they were quite elevated. He is still able to generate tidal volumes above 500 and his respir atory rate currently is in the 00s for now. Chest x-ray is consistent with diffuse bilateral pulmonary infiltrates. He has a PICC line in his left upper extremity and the patient is receiving TPN for nutritional support. As mentioned, he remains weak and lethargic. Pulmonary service on board; plan to titrate FiO2 down as able; patient did receive Actemra 1; continue to follow-up on inflammatory markers 09/13/2020 Patient is seen and evaluated in ICU; transferred to ICU yesterday when patient desaturates and did not respond to BiPAP and got intubated and mechanically ventilated; patient is currently sedated and remains on an assist-control mode; chest x-ray reveals diffuse bilateral pulmonary infiltrates Patient did have fluctuation in blood pressure which is currently more stable; patient remains on IV Decadron 6 mg every 12 hours, Lovenox 40 mg subcu every 12 hours; currently on TPN for nutritional support; lead solutions architect team planning to discontinue TPN and transitioned to antral tube feeding Patient remains on vitamin supplements; received 1 dose of convalescent plasma and 1 dose of Actemra; continue to monitor inflammatory markers Objective - Vital Signs Vital signs: Vital Signs Temp 96.8 F L 09/13/20 08:00 Pulse 101 H 09/13/20 10:00 Resp 32 H 09/13/20 10:00 BP 155/77 09/13/20 10:00 Pulse Ox 90 L 09/13/20 09:30 Intake & Output 09/12/20 09/13/20 09/13/20 18:59 06:59 18:59 Intake Total 1043 254.773 226.069 Output Total 375 345 240 Balance 668 -90.227 -13.931 Weight 93.5 kg 91.4 kg Intake: IV 240 80 Mvi, Adult No.4 with Vit 180 K 10 ml Trace (Conc-1Ml/ Dose) 1 ml Sodium Acetate 30 meq Potassium Chloride 10 meq Calcium Gluconate 1 gm Sodium Phosphate 6 mmol In Amino Acid 5%-D15w 1,000 ml @ 90 mls/hr IV .BY DURATION SPENSER Rx#:[id number] Sodium Chloride 0.9% 1, 60 80 000 ml @ 20 mls/hr IV . Q24H SPENSER Rx#:[id number] Intake, IV Titration 1043 14.773 86.069 Amount Cisatracurium 200 mg In 0.842 Sodium Chloride 0.9% 180 ml @ 1 MCG/KG/MIN 5.61 mls/hr IV .Q24H SPENSER Rx#: [id number] Mvi, Adult No.4 with Vit 1043 K 10 ml Trace (Conc-1Ml/ Dose) 1 ml Sodium Acetate 30 meq Potassium Chloride 10 meq Calcium Gluconate 1 gm Sodium Phosphate 6 mmol In Amino Acid 5%-D15w 1,000 ml @ 90 mls/hr IV .BY DURATION SPENSER Rx#:[id number] propofoL 1,000 mg In 13.931 86.069 Empty Bag 1 bag @ Titrate IV .Q0M SPENSER Rx#: [id number] Oral 0 60 Output: Urine 375 345 240 Stool 0 Other: Voiding Method Urinal Indwelling Catheter ABP, PAP, CO, CI - Last Documented Arterial Blood Pressure 165/67 - Exam GENERAL: The patient is resting, not in any acute distress. Well developed, well nourished. Not in respiratory distress on BiPAP HEENT: Pupils are round and equally reacting to light. EOMI. No scleral icterus. No conjunctival pallor. Normocephalic, atraumatic. No pharyngeal erythema. No thyromegaly. CARDIOVASCULAR: S1 and S2 present. No murmurs, rubs, or gallops. PULMONARY: Chest is clear to auscultation, no wheezing or crackles. ABDOMEN: Soft, nontender, nondistended, normoactive bowel sounds. No palpable organomegaly. MUSCULOSKELETAL: No joint swelling or deformity. EXTREMITIES: No cyanosis, clubbing, or pedal edema. NEUROLOGICAL: Gross neurological examination did not reveal any focal deficits. SKIN: No rashes. - Labs CBC & Chem 7: 09/12/20 11:00 09/13/20 04:10 Labs: Abnormal Lab Results - Last 24 Hours (Table) 09/11/20 09/12/20 09/12/20 Range/Units 07:08 11:00 11:00 WBC 24.6 H (3.8-10.6) k/uL Plt Count 121 L (150-450) k/uL ABG pH (7.35-7.45) ABG pCO2 (35-45) mmHg ABG pO2 (83-108) mmHg ABG HCO3 (21-25) mmol/L ABG Total CO2 (19-24) mmol/L ABG O2 Saturation (94-97) % Sodium 132 L (137-145) mmol/L Carbon Dioxide 18 L (22-30) mmol/L BUN 29 H (9-20) mg/dL Creatinine 0.65 L (0.66-1.25) mg/dL Glucose 143 H (74-99) mg/dL POC Glucose (mg/dL) (75-99) mg/dL Phosphorus (2.5-4.5) mg/dL Lactate Dehydrogenase 3897 H (313-618) U/L C-Reactive Protein (<1.0) mg/dL 09/12/20 09/12/20 09/13/20 Range/Units 11:43 16:47 00:00 WBC (3.8-10.6) k/uL Plt Count (150-450) k/uL ABG pH (7.35-7.45) ABG pCO2 (35-45) mmHg ABG pO2 (83-108) mmHg ABG HCO3 (21-25) mmol/L ABG Total CO2 (19-24) mmol/L ABG O2 Saturation (94-97) % Sodium (137-145) mmol/L Carbon Dioxide (22-30) mmol/L BUN (9-20) mg/dL Creatinine (0.66-1.25) mg/dL Glucose (74-99) mg/dL POC Glucose (mg/dL) 138 H 179 H 122 H (75-99) mg/dL Phosphorus (2.5-4.5) mg/dL Lactate Dehydrogenase (313-618) U/L C-Reactive Protein (<1.0) mg/dL 09/13/20 09/13/20 09/13/20 Range/Units 02:47 03:55 04:10 WBC (3.8-10.6) k/uL Plt Count (150-450) k/uL ABG pH 7.22 L (7.35-7.45) ABG pCO2 61 H (35-45) mmHg ABG pO2 41 L* (83-108) mmHg ABG HCO3 26 H (21-25) mmol/L ABG Total CO2 25 H 27 H (19-24) mmol/L ABG O2 Saturation 73.0 L (94-97) % Sodium 133 L (137-145) mmol/L Carbon Dioxide (22-30) mmol/L BUN 30 H (9-20) mg/dL Creatinine (0.66-1.25) mg/dL Glucose 156 H (74-99) mg/dL POC Glucose (mg/dL) (75-99) mg/dL Phosphorus 5.4 H (2.5-4.5) mg/dL Lactate Dehydrogenase 4703 H (313-618) U/L C-Reactive Protein 2.9 H (<1.0) mg/dL 09/13/20 Range/Units 08:31 WBC (3.8-10.6) k/uL Plt Count (150-450) k/uL ABG pH 7.15 L* (7.35-7.45) ABG pCO2 76 H* (35-45) mmHg ABG pO2 72 L (83-108) mmHg ABG HCO3 27 H (21-25) mmol/L ABG Total CO2 29 H (19-24) mmol/L ABG O2 Saturation 89.6 L (94-97) % Sodium (137-145) mmol/L Carbon Dioxide (22-30) mmol/L BUN (9-20) mg/dL Creatinine (0.66-1.25) mg/dL Glucose (74-99) mg/dL POC Glucose (mg/dL) (75-99) mg/dL Phosphorus (2.5-4.5) mg/dL Lactate Dehydrogenase (313-618) U/L C-Reactive Protein (<1.0) mg/dL Assessment and Plan Assessment: -Acute hypoxic respiratory failure: Secondary to Covid 19. Patient was started on Decadron, vitamins. Patient is out of the window for Remdesivir, he received Tocilizumab and 1 unit of convalescent plasma., Patient is presently on BiPAP 100% FiO2. Patient has a highly elevated BNP because of which she is on DVT prophylaxis at 40 twice a day of Lovenox, patient was negative for PE because of which I'm not using anticoagulation dose of Lovenox. -Lactic acidosis resolved with IV fluids -Hypertension -Ruled out PE -Elevated troponins secondary to type II TX secondary to hypoxemia -GI prophylaxis with Pepcid
[2020-09-13] MEDS: 1: MVI, ADULT NO.4 WITH VIT K 10 ML, TRACE (CONC-1ML/DOSE) 1 ML, SODIUM ACETATE 50 MEQ, IV SCH ×12 (17:17→21:54)
[2020-09-14] MEDS: SODIUM CHLORIDE 0.9% 1,000 ML IV SCH ×2 (00:41→19:11)
[2020-09-14 04:02] LABS: HCT 40.5 % (39.0-53.0); HGB 14.2 gm/dL (13.0-17.5); MCH 31.7 pg (25.0-35.0); MCV 90.5 fL (80.0-100.0); Mean Platelet Volume 8.8; RBC 4.48 m/uL (4.30-5.90); RDW 14.7 % (11.5-15.5); WBC 21.5 k/uL (3.8-10.6)
[2020-09-14 04:17] LABS: C Reactive Protein 5.2 mg/dL (<1.0); Calcium 8.3 mg/dL (8.4-10.2); Magnesium 2.5 mg/dL (1.6-2.3); Phosphorus 5.3 mg/dL (2.5-4.5); Potassium 5.2 mmol/L (3.5-5.1)
[2020-09-14 05:26] LABS: ABG Base Excess 3.3 mmol/L; ABG HCO3 30 mmol/L (21-25); ABG Oxygen Saturation 96.1 % (94-97); ABG PCO2 62 mmHg (35-45); ABG PH 7.29 (7.35-7.45); ABG PO2 86 mmHg (83-108); ABG TCO2 32 mmol/L (19-24); Allen Test Performed? Yes
--- NOTE | 2020-09-14 05:58 | XR ---
EXAMINATION TYPE: XR chest 1V portable DATE OF EXAM: 09/14/2020 CLINICAL HISTORY: Difficulty breathing progress study. TECHNIQUE: Single AP portable semiupright view of the chest is obtained. COMPARISON: Chest x-ray from one day earlier and older studies. FINDINGS: Stable endotracheal and orogastric tubes. Stable left-sided PICC line. Bilateral multifocal and confluent opacities redemonstrated. Cardiac silhouette size stable and withi n normal limits. Osseous structures are intact. IMPRESSION: Bilateral multifocal and confluent opacities consistent with covid-19 infection are redem onstrated. No significant change from one day earlier.
--- NOTE | 2020-09-14 06:51 | P.PN ---
Subjective Progress Note Date: 09/14/20 54-year-old white male patient who is an ex smoker, carries [id number] smoking history quit smoking 1 year ago in May, history of hypertension and gout who sees Dr. Contreras, presented to the emergency department on 08/02/2020 with complaints of worsening shortness of breath, cough, and patient was diagnosed with Covid 19 one week ago, was tested at [facility] per Dr. Contreras's order. 2 weeks ago he had symptoms of flulike illness, sore throat, shortness of breath, weakness, muscle aches which progressively became worse, and patient developed worsening shortness of breath and had difficulty breathing and ambulating at home. He was placed on Decadron [address] Contreras and he has 1-1/2 days worth left of it. Chest x-ray in the emergency department showed bilateral interstitial pneumonia. White blood cell count was 33.1, d-dimer was greater than 35.2, CO2 is 16, the rest of electrolytes were unremarkable, B1 is 35 creatinine is 1.04, plasma lactic acid is 4.5, patient was given IV fluids and lactic acid came down to 1.8, total bilirubin was 1.6, AST is 107, ALT is 48 , alkaline phosphatase is 114, LDH is 5924, first troponin was 4.190, and the second one went up to 6.960. CRP is 180.3, pro-calcitonin level is 0.33, urinalysis showed 1+ protein, but no definite sign of infection, pulse ox is 86 on room air, patient has significant shortness of breath, and was placed on BiPAP support, currently with pressures of 12/6, and FiO2 of 100% on which he remains this morning, he is afebrile, hemodynamically he is stable, she was started on IV Decadron, we'll start him on intermediate dose of Lovenox 50 mg every 12 hours, CTA chest shows no evidence of pulmonary embolism, and extensive pulmonary infiltrates that are mostly interstitial consistent with severe inter stitial pneumonia. Progress note dated 09/04/2020. 54-year-old male, admitted with a diagnosis of COVID 19 pneumonitis. Currently, he is on BiPAP at 12/6 and 90%. FiO2 will be dropped down to 80%. In addition, he is getting saline at 75 mL an hour. The patient's doing better today. He states that he feels better. He still short of breath with activity. I did tell him today to make sure he moves around in bed when he is laying in bed. White count 29.3, hemoglobin 14.6, hematocrit 42.7, platelet count 140,000. D- dimer greater than 34.10. Sodium 136, potassium 5.1, chlorides 105, CO2 25, anion gap 6, BUN 39, creatinine 0.9. LDH is 3965. C-reactive protein 143. Chest x-ray shows a worsening pattern of bilateral airspace disease. Progress note dated 09/05/2020. 54-year-old male, admitted with a diagnosis of COVID 19 pneumonitis. He remains on BiPAP with an FiO2 of 80%. Settings included an IPAP 12, EPAP 6. The patient states that he feels a bit better. He is getting saline at 75 mL an hour. He feels like he is breathing is improved. He does know to move about in bed. No new laboratory data today. His most recent chest x-ray was from yesterday and was reviewed. The patient's on appropriate medications. Progress note dated 09/06/2020. 54-year-old male, seen again today. The patient is on BiPAP, settings of IPAP 12, EPAP 6, and 90%. He is also getting saline at 75 mL an hour. Was admitted with a diagnosis of acute hypoxemic respiratory failure secondary to COVID 19 pneumonia. The patient feels about the same. No better or no worse. He will have a chest x-ray tomorrow. Labs are reviewed. White count 19.3, hemoglobin 15, hematocrit 43.9, and platelet count 92,000. Sodium 135, potassium 4.9, chlorides 109, CO2 20, anion gap 6, BUN 34, and creatinine 0.92. There is no recent chest x-ray to review. The patient is seen today 09/07/2020 in follow-up on the selective care unit. He is currently resting comfortably in bed. States he is doing a little better today compared to yesterday. He is still requiring BiPAP support 12/6 and 100% FiO2. Chest x-ray reveals stable bilateral lung infiltrates. Blood glucose 163. He remains on bronchodilators, vitamin supplements, dexamethasone, Lovenox. 0.9 normal saline at 75 ML's per hour. On 09/08/2020, the patient is being seen in follow-up on the [facility]. The patient is a 54-year-old male patient with Covid 19 related pneumonia and the patient has diffuse stable by the pulmonary infiltrates. The patient remains on Decadron. The patient is also on Lovenox 40 mg subcu every 12 hours. The patient is also requiring BiPAP for respiratory support at a pressure of 12/6 cm of water and FiO2 of 100%. The patient is able to generate a tidal volume of 800 mL of the respiratory rate of 24 and a minute ventilation of 23 L. The patient Has elevated inflammatory markers and the last time the markers were checked were on 09/04/2020 with an LDH of 3965 and a CRP of 142. Levels will need to be rechecked. The d-dimer was above 34. The LDH level remains elevated at 3911. D-dimer is 24.6. The patient is also on IV fluids with normal saline at the rate of 75 mL an hour. The patient is on Decadron 6 because IV every 24 hours. The patient is also on Lovenox 40 mg subcu every 12 hours. His current BMI 31.5. On 09/09/2020, the patient is being seen for a follow-up. The patient continues to be on a BiPAP at a pressure of 12/6 cm of water with an FiO2 of 100%. The patient is awake and he requires assistance to be moved around. His tidal volume is in the order of 800 mL which is comparable to yesterday. A repeat chest x-ray was done and it shows some limited improvement in the bilateral pulmonary infiltrates. the patient remains on Decadron and the dose is currently at 60 mg IV every 12 hours. inflammatory markers are elevated with an LDH level of 3 911 and the CRP is 22.5. His d-dimer is still elevated at 24.6 and the patient is on Lovenox at a dose of 40 mg subcu every 12 hours.. On his problem continue to be the patient's hypoxemia, Covid 19 related pneumonia and global weakness. Unfortunately, the patient is unable to eat as the patient desaturates significantly was taken off the BiPAP. 09/10/2020 the patient remains BiPAP dependent at the pressure of 12/6 cm of water. His FiO2 is still 100%. He was still able to generate adequate tidal volumes while being on a BiPAP. He has had a PICC line yesterday as the patient was not meeting his caloric requirements and I was also contemplating the possibility of TPN. His chest x-ray remains unchanged with diffuse bilateral infiltrates consistent with Covid 19 related pneumonia. His blood work is showing a d-dimer of 24 from 2 days ago. Electrolytes are normal, and no new inflammatory markers. The current pulse ox is 92% on a BiPAP and the patient remains on Decadron 6 mg IV every 12 hours. 09/11/2020, the patient remains on a BiPAP at a pressure of 12/6 and FiO2 of 100%. He is quite lethargic. He is in mild degree of respiratory distress even at rest while on the BiPAP. Current pulse ox is 89%. A PICC line was inserted yesterday and the patient was also started on TPN for nutritional support knowing that he was able to eat and he was not meeting his caloric requirements. His d-dimer is 15. The patient is on Lovenox 50 mg subcu every 12 hours. The patient is also receiving Decadron 6 mg IV 12 hours. Current pulse ox is around 89%. No major changes condition since yesterday. No other new labs otherwise. His resting in bed comfortably. He is generating tidal volumes above >600cc with respiratory rate in the mid 20s. He had no signs of any fluid overload. Mentation is preserved. Looks lethargic. He is able to answer questions and following commands. No other significant issues otherwise for now. I will today's condition is essentially stable since yesterday. 09/12/2020 the patient remains on BiPAP 12/6 cm of water with an FiO2 of 100%. Condition is essentially the same and unchanged compared to yesterday. The patient is currently on a pulse ox of 94% on above-mentioned BiPAP setting. He remains on Decadron 6 mg IV every 12 hours. He also is on Lovenox 50 mg subcu every 12 hours. He has an LDH level of 5040 at a CRP of 8.2. His inflammatory markers were obtained yesterday and they were quite elevated. He is still able to generate tidal volumes above 500 and his respiratory rate currently is in the 00s for now. Chest x-ray is consistent with diffuse bilateral pulmonary infiltrates. He has a PICC line in his left upper extremity and the patient is receiving TPN for nutritional support. As mentioned, he remains weak and lethargic. He is arousable and follows commands and answering questions. 09/13/2020, the patient got transferred to the intensive care unit where the patient got intubated and placed on a mechanical ventilator. Note that the patient was maintaining relatively fine on the BiPAP and ultimately desaturates., Became more short of breath and unresponsive in the blood. Showed significant hypoxemia and he had to come in to the ICU where he was intubated and placed on a mechanical ventilator. At this point and he is sedated with propofol running at 50 mcg/kg per minute and the patient is also paralyzed with Nimbex at 3 mcg/kg per minute. He is currently on assist control mode at the rate of 32 with a tidal volume of 400 and FiO2 of 1% with a PEEP of 15. The blood gases post intubation showed a pH of 7.22 and a pCO2 of 61 and pO2 of 89. His chest x-ray showing adequate positioning of ET tube. He has diffuse bilateral pulmonary infiltrates consistent with Covid 19 related pneumonia. Peak airway pressure 38. Static pressures 34. He is well rested and paralyzed for now. His BP currently is running at 156/59 and the patient was quite hypertensive prior to his intubation. His blood pressure came up to 182/110 and currently it's more stable. Labs are still pending for now. Meanwhile, the patient remains on Decadron 6 mg IV every 12 hours. Is also on Lovenox 40 mg subcu twice a day. He was receiving TPN for nutritional support as the patient was unable to take any form of oral intake as he was very much BiPAP dependent. TPN will be discontinued and the patient will be transitioned to enteral feeding note that he is currently intubated on a mechanical ventilator. A central line was also inserted. IV fluids are running at the rate of 20 mL an hour of normal saline. TPN Is currently running at 90 mL an hour. 09/14/2020, the patient is intubated on a mechanical ventilator in the intensive care unit. The patient currently is sedated and paralyzed. Propofol is running at 40 mcg/kg per minute and the Nimbex is running at 1.8 mcg/kg per minute. He is adequately sedated and paralyzed. He is still assist-control mode of mechanical ventilation at the rate of 32 with a tidal volume of 400 and FiO2 of 100% and a PEEP of 15. His blood gases from today showed a pH of 7.29 and pCO2 of 62 and pO2 of 86. We are allowing permissive hypercapnia. The peak and static pressures today are 14 and 34 respectively. His chest x-ray from today showing diffuse bilateral pulmonary infiltrates more so in the lower lobes and there is extensive consolidation of the lower lobes bilaterally. ET tube is at the level of the aortic knob. NG tube is in place. The patient remains on D ecadron and currently is at a dose of 6 mg IV every 12 hours. In terms of his blood work, his inflammatory markers show a drop in the LDH level which is down to 294 and a CRP level is down to 5.2. D-dimer from a few days ago was 15.6 and the patient remains on Lovenox at a dose of 40 mg subcu every 12 hours. His TPN has been discontinued and the patient was switched enteral feeding and the matthias ent is currently on vital high protein at the rate of 20 mL an hour which is at goal for now. IV fluids running at 20 mL an hour. He is hemodynamically stable. His overall fluid balance has been +1.6 L over the past 24 hours. Note that this patient was intubated yesterday after failing BiPAP for several days. He was intubated on 08/12/2020. Family is aware. Objective - Vital Signs Vital signs: Vital Signs Temp 98.3 F 09/14/20 04:00 Pulse 80 09/14/20 06:00 Resp 32 H 09/14/20 06:00 BP 138/73 09/14/20 06:00 Pulse Ox 93 L 09/14/20 05:00 Intake & Output 09/13/20 09/13/20 09/14/20 06:59 18:59 06:59 Intake Total 254.773 763.335 933.736 Output Total 345 1085 1030 Balance -90.227 -321.665 -96.264 Weight 91.4 kg Intake: IV 240 240 240 Mvi, Adult No.4 with Vit 180 K 10 ml Trace (Conc-1Ml/ Dose) 1 ml Sodium Acetate 30 meq Potassium Chloride 10 meq Calcium Gluconate 1 gm Sodium Phosphate 6 mmol In Amino Acid 5%-D15w 1,000 ml @ 90 mls/hr IV .BY DURATION SPENSER Rx#:[id number] Sodium Chloride 0.9% 1, 60 240 240 000 ml @ 20 mls/hr IV . Q24H SPENSER Rx#:[id number] Intake, IV Titration 14.773 403.335 423.736 Amount Cisatracurium 200 mg In 0.842 118.371 127.721 Sodium Chloride 0.9% 180 ml @ 1 MCG/KG/MIN 5.61 mls/hr IV .Q24H SPENSER Rx#: [id number] propofoL 1,000 mg In 13.931 284.964 296.015 Empty Bag 1 bag @ Titrate IV .Q0M SPENSER Rx#: [id number] Oral 100 Tube Feeding 20 180 Other 90 Output: Gastric Drainage 500 Urine [phone] Stool 0 Other: Voiding Method Urinal Indwelling Catheter Indwelling Catheter ABP, PAP, CO, CI - Last Documented Arterial Blood Pressure 156/51 - Exam GENERAL EXAM: Alert, pleasant 54-year-old gentleman, sedated, paralyzed, intubated on a mechanical ventilator, currently on a combination of propofol and Nimbex. Orogastric and orotracheal tube are both in place. HEAD: Normocephalic. EYES: Normal reaction of pupils, equal size. NOSE: Clear with pink turbinates. THROAT: No erythema or exudates. NECK: No masses, no JVD. CHEST: No chest wall deformity. LUNGS: Equal air entry with crackles in the bilateral posterior bases. CVS: S1 and S2 normal with no audible murmur, regular rhythm. ABDOMEN: No hepatosplenomegaly, normal bowel sounds, no guarding or rigidity. SPINE: No scoliosis or deformity SKIN: No rashes CENTRAL NERVOUS SYSTEM: Sedated and paralyzed EXTREMITIES: There is no peripheral edema. No clubbing, no cyanosis. Peripheral pulses are intact. - Labs CBC & Chem 7: 09/14/20 03:40 09/14/20 03:40 Labs: Abnormal Lab Results - Last 24 Hours (Table) 09/13/20 09/13/20 09/13/20 Range/Units 04:10 08:31 11:42 WBC (3.8-10.6) k/uL ABG pH 7.15 L* (7.35-7.45) ABG pCO2 76 H* (35-45) mmHg ABG pO2 72 L (83-108) mmHg ABG HCO3 27 H (21-25) mmol/L ABG Total CO2 29 H (19-24) mmol/L ABG O2 Saturation 89.6 L (94-97) % Sodium 133 L (137-145) mmol/L Potassium (3.5-5.1) mmol/L BUN 30 H (9-20) mg/dL Glucose 156 H (74-99) mg/dL POC Glucose (mg/dL) 171 H (75-99) mg/dL Calcium (8.4-10.2) mg/dL Phosphorus 5.4 H (2.5-4.5) mg/dL Magnesium (1.6-2.3) mg/dL Lactate Dehydrogenase 4703 H (313-618) U/L C-Reactive Protein 2.9 H (<1.0) mg/dL 09/14/20 09/14/20 09/14/20 Range/Units 03:40 03:40 05:25 WBC 21.5 H (3.8-10.6) k/uL ABG pH 7.29 L (7.35-7.45) ABG pCO2 62 H (35-45) mmHg ABG pO2 (83-108) mmHg ABG HCO3 30 H (21-25) mmol/L ABG Total CO2 32 H (19-24) mmol/L ABG O2 Saturation (94-97) % Sodium 135 L (137-145) mmol/L Potassium 5.2 H (3.5-5.1) mmol/L BUN 40 H (9-20) mg/dL Glucose 131 H (74-99) mg/dL POC Glucose (mg/dL) (75-99) mg/dL Calcium 8.3 L (8.4-10.2) mg/dL Phosphorus 5.3 H (2.5-4.5) mg/dL Magnesium 2.5 H (1.6-2.3) mg/dL Lactate Dehydrogenase 2293 H (313-618) U/L C-Reactive Protein 5.2 H (<1.0) mg/dL Assessment and Plan Plan: 1 ARDS with hypoxemic respiratory failure secondary to COVID 19 pneumonitis. Patient received tocilizumab and convalescent plasma, the patient is currently on Decadron 6 and the grams every 12 hours and the patient is also on Lovenox 40 mg subcu every 12 hours. Very much BiPAP dependent. Decompensated and he was intubated on 09/12/2017 and today he remains sedated, paralyzed, intubated and placed on a mechanical ventilator. Currently on assist control mode, volume cycle, chest x-ray was noted and blood gas was noted. There is an improvement in his oxygenation postintubation. Currently on a PEEP of 15 with an FiO2 of 100%. Peak and static pressures are still elevated with a peak airway pressure of 40 anesthetic airway pressure of 34 and the patient has a very low P/f show and the findings are consistent with ARDS. The chest x-ray findings are essentially unchanged and the FiO2 currently is at 100%. 2 History of hypertension. 3 Former tobacco use. 4 elevated inflammatory markers including LDH secondary to above Plan: Keep the patient sedated and paralyzed with a combination of Nimbex and propofol Give the patient paralytic holiday Weaning the FiO2 down to 90% and wean it down 10% and attempt to maintain a saturation above 90% Continued on dexamethasone, 6 mg IV every 12 hours Lovenox 40 mg subcu every 12 hours vitamin supplements convalescent plasma x1 given Received Actemra x1 Repeat inflammatory markers in the a.m., LDH and d-dimer and the levels are still elevated enteral feeding for nutritional support. IV fluids to KVO Chest x-ray was noted Condition is critical. We'll continue to follow. Critically care evaluation, more than 30 minutes
[2020-09-14] MEDS: ALBUTEROL HFA INHALER INHALATION SCH ×4 (07:21→18:57)
[2020-09-14] MEDS: FAMOTIDINE 20 MG TAB PO SCH ×2 (08:55→21:09)
[2020-09-14] MEDS: CHOLECALCIFEROL 25 MCG (1000 IU) TABLET PO SCH (08:55)
[2020-09-14] MEDS: CHLORHEXIDINE GLUCONATE 15 ML CUP MUCOUS MEM SCH ×2 (08:55→21:09)
[2020-09-14] MEDS: ENOXAPARIN 40 MG/0.4 ML SYRINGE SQ SCH ×2 (08:56→21:09)
[2020-09-14] MEDS: ATORVASTATIN 80 MG TAB PO SCH (08:56)
[2020-09-14] MEDS: allopurinoL 300 MG TAB PO SCH (08:56)
[2020-09-14] MEDS: amLODIPine 10 MG TAB PO SCH (08:56)
[2020-09-14] MEDS: DEXAMETHASONE SOD PHOSPHATE 10 MG/ML 1 ML VIAL IV SCH ×2 (08:56→21:09)
[2020-09-14] MEDS: ASPIRIN 81 MG PO SCH (08:56)
[2020-09-14] MEDS: ASCORBIC ACID 500 MG TAB PO SCH ×2 (08:56→21:09)
[2020-09-14] MEDS: ZINC SULFATE 220 MG CAP PO SCH (08:57)
[2020-09-14] MEDS: METOPROLOL TARTRATE 12.5 MG TAB PO SCH ×2 (08:57→21:09)
[2020-09-14] MEDS: CISATRACURIUM 200 MG in SODIUM CHLORIDE 0.9% 180 ML IV SCH (09:31)
[2020-09-14 09:35] LABS: Ferritin 1480.2 ng/mL (22.0-322.0)
[2020-09-14 10:39] LABS: Platelet Count 69 k/uL (150-450)
--- NOTE | 2020-09-14 15:52 | P.PN ---
Subjective Progress Note Date: 09/14/20 Principal diagnosis: Acute hypoxic respiratory failure: Secondary to Covid 19 54-year-old male came in with complaints of shortness of breath cough. Episodes of diarrhea nausea, generalized body aches and fevers at home patient was diagnosed with Covid 19 about a week ago patient's symptoms can you to get worse and patient is more short of breath because of which patient came to ER found to be hypoxic was started on IV fluids and patient has elevated inflammatory markers along with elevated troponin of 4.190 which of and up to 6.960 was started on IV heparin Decadron subsequently admitted. Patient had a CT of the chest which did not show any PE but did show extensive pulmonary infiltrates had an echocardiogram as well which did not show any significant abnormality. Cardiology and pulmonology were consulted. Patient is on heparin 50 twice a day which will be switched to anticoagulation those that is 90 twice a day testing elevation of troponin. 09/12/2020 Patient is seen and evaluated on follow-up; remains on BiPAP 12/6 cm of water with an FiO2 of 100%. Condition is essentially the same and unchanged compared to yesterday. The patient is currently on a pulse ox of 94% on above-mentioned BiPAP setting. He remains on Decadron 6 mg IV every 12 hours. He also is on Lovenox 50 mg subcu every 12 hours. He has an LDH level of 5040 at a CRP of 8.2. His inflammatory markers were obtained yesterday and they were quite elevated. He is still able to generate tidal volumes above 500 and his respir atory rate currently is in the 00s for now. Chest x-ray is consistent with diffuse bilateral pulmonary infiltrates. He has a PICC line in his left upper extremity and the patient is receiving TPN for nutritional support. As mentioned, he remains weak and lethargic. Pulmonary service on board; plan to titrate FiO2 down as able; patient did receive Actemra 1; continue to follow-up on inflammatory markers 09/13/2020 Patient is seen and evaluated in ICU; transferred to ICU yesterday when patient desaturates and did not respond to BiPAP and got intubated and mechanically ventilated; patient is currently sedated and remains on an assist-control mode; chest x-ray reveals diffuse bilateral pulmonary infiltrates Patient did have fluctuation in blood pressure which is currently more stable; patient remains on IV Decadron 6 mg every 12 hours, Lovenox 40 mg subcu every 12 hours; currently on TPN for nutritional support; 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 His chest x-ray from today showing diffuse bilateral pulmonary infiltrates more so in the lower lobes and there is extensive consolidation of the lower lobes bilaterally. ET tube is at the level of the aortic knob. NG tube is in place. The patient remains on Decadron and currently is at a dose of 6 mg IV every 12 hours and Lovenox 40 mg subcu every 12 hours. Blood work reveals improvement in inflammatory markers show a drop in the LDH level which is down to 294 and a CRP level is down to 5.2. D-dimer from a few days ago was 15.6 TPN has been discontinued and the patient was switched enteral feeding and the patient is currently on vital high protein at the rate of 20 mL an hour which is at goal for now. IV fluids running at 20 mL an hour. He is hemodynamically stable. His overall fluid balance has been +1.6 L over the past 24 hours. Note that this patient was intubated yesterday after failing BiPAP for several days. Objective - Vital Signs Vital signs: Vital Signs Temp 98.1 F 09/14/20 08:00 Pulse 86 09/14/20 09:00 Resp 32 H 09/14/20 09:00 BP 142/77 09/14/20 09:00 Pulse Ox 92 L 09/14/20 09:00 Intake & Output 09/13/20 09/14/20 09/14/20 18:59 06:59 18:59 Intake Total 763.335 965.881 293.928 Output Total 1085 1030 260 Balance -321.665 -64.119 33.928 Weight 91.4 kg Intake: IV 240 240 60 Sodium Chloride 0.9% 1, 240 240 60 000 ml @ 20 mls/hr IV . Q24H [facility] Rx#:[id number] Intake, IV Titration 403.335 455.881 73.928 Amount Cisatracurium 200 mg In 118.371 159.866 24.572 Sodium Chloride 0.9% 180 ml @ 1 MCG/KG/MIN 5.61 mls/hr IV .Q24H [facility] Rx#: [id number] propofoL 1,000 mg In 284.964 296.015 49.356 Empty Bag 1 bag @ Titrate IV .Q0M [facility] Rx#: [id number] Oral 100 100 Tube Feeding 20 180 60 Other 90 Output: Gastric Drainage 500 Urine 585 1030 260 Other: Voiding Method Indwelling Catheter Indwelling Catheter ABP, PAP, CO, CI - Last Documented Arterial Blood Pressure 158/62 - Exam GENERAL: The patient is resting, not in any acute distress. Well developed, well nourished. Not in respiratory distress on BiPAP HEENT: Pupils are round and equally reacting to light. EOMI. No scleral icterus. No conjunctival pallor. Normocephalic, atraumatic. No pharyngeal erythema. No thyromegaly. CARDIOVASCULAR: S1 and S2 present. No murmurs, rubs, or gallops. PULMONARY: Chest is clear to auscultation, no wheezing or crackles. ABDOMEN: Soft, nontender, nondistended, normoactive bowel sounds. No palpable o rganomegaly. MUSCULOSKELETAL: No joint swelling or deformity. EXTREMITIES: No cyanosis, clubbing, or pedal edema. NEUROLOGICAL: Gross neurological examination did not reveal any focal deficits. SKIN: No rashes. - Labs CBC & Chem 7: 09/14/20 03:40 09/14/20 03:40 Labs: Abnormal Lab Results - Last 24 Hours (Table) 09/13/20 09/14/20 09/14/20 Range/Units 11:42 03:40 03:40 WBC 21.5 H (3.8-10.6) k/uL ABG pH (7.35-7.45) ABG pCO2 (35-45) mmHg ABG HCO3 (21-25) mmol/L ABG Total CO2 (19-24) mmol/L Sodium 135 L (137-145) mmol/L Potassium 5.2 H (3.5-5.1) mmol/L BUN 40 H (9-20) mg/dL Glucose 131 H (74-99) mg/dL POC Glucose (mg/dL) 171 H (75-99) mg/dL Calcium 8.3 L (8.4-10.2) mg/dL Phosphorus 5.3 H (2.5-4.5) mg/dL Magnesium 2.5 H (1.6-2.3) mg/dL Ferritin 1480.2 H (22.0-322.0) ng/mL Lactate Dehydrogenase 2293 H (313-618) U/L C-Reactive Protein 5.2 H (<1.0) mg/dL 09/14/20 Range/Units 05:25 WBC (3.8-10.6) k/uL ABG pH 7.29 L (7.35-7.45) ABG pCO2 62 H (35-45) mmHg ABG HCO3 30 H (21-25) mmol/L ABG Total CO2 32 H (19-24) mmol/L Sodium (137-145) mmol/L Potassium (3.5-5.1) mmol/L BUN (9-20) mg/dL Glucose (74-99) mg/dL POC Glucose (mg/dL) (75-99) mg/dL Calcium (8.4-10.2) mg/dL Phosphorus (2.5-4.5) mg/dL Magnesium (1.6-2.3) mg/dL Ferritin (22.0-322.0) ng/mL Lactate Dehydrogenase (313-618) U/L C-Reactive Protein (<1.0) mg/dL Assessment and Plan Assessment: -Acute hypoxic respiratory failure: Secondary to Covid 19. Patient was started on Decadron, vitamins. Patient is out of the window for Remdesivir, he received Tocilizumab and 1 unit of convalescent plasma., Patient is presently on BiPAP 100% FiO2. Patient has a highly elevated BNP because of which she is on DVT p rophylaxis at 40 twice a day of Lovenox, patient was negative for PE because of which I'm not using anticoagulation dose of Lovenox. -Lactic acidosis resolved with IV fluids -Hypertension -Ruled out PE -Elevated troponins secondary to type II CO secondary to hypoxemia -GI prophylaxis with Pepcid
[2020-09-15 04:06] LABS: HCT 41.4 % (39.0-53.0); MCH 31.1 pg (25.0-35.0); MCHC 33.8 g/dL (31.0-37.0); MCV 92.2 fL (80.0-100.0); Mean Platelet Volume 8.9; RBC 4.49 m/uL (4.30-5.90); WBC 21.8 k/uL (3.8-10.6)
[2020-09-15 04:17] LABS: Platelet Count 90 k/uL (150-450)
[2020-09-15 04:21] LABS: African American GFR (CKD) >90 (>60 ml/min/1.73 sqM); Anion Gap 3 mmol/L; Blood Urea Nitrogen 47 mg/dL (9-20); C Reactive Protein 2.6 mg/dL (<1.0); Calcium 8.7 mg/dL (8.4-10.2); Carbon Dioxide 33 mmol/L (22-30); Chloride 102 mmol/L (98-107); Glucose 151 mg/dL (74-99); Magnesium 2.8 mg/dL (1.6-2.3); Non-African American GFR(CKD) 80 (>60 ml/min/1.73 sqM); Phosphorus 3.8 mg/dL (2.5-4.5); Potassium 5.2 mmol/L (3.5-5.1); Sodium 138 mmol/L (137-145)
[2020-09-15 04:44] LABS: LDH 2036 U/L (313-618)
[2020-09-15 04:46] LABS: ABG Base Excess 5.4 mmol/L; ABG HCO3 32 mmol/L (21-25); ABG PCO2 64 mmHg (35-45); ABG PO2 77 mmHg (83-108); ABG TCO2 34 mmol/L (19-24)
[2020-09-15 04:59] LABS: Allen Test Performed? no
[2020-09-15] MEDS: ALBUTEROL HFA INHALER INHALATION SCH ×4 (07:41→19:10)
--- NOTE | 2020-09-15 08:31 | XR ---
EXAMINATION TYPE: XR chest 1V portable DATE OF EXAM: 09/15/2020 Comparison: 09/14/2020 Clinical History: 54-year-old male Tube placement Findings: ET tube tip at the level of the medial clavicular heads. NG tube courses below the diaphragm. Left PI CC tip at the upper SVC level. Heart normal size. Interstitial and patchy airspace opacities especial ly in the mid and lower lungs persist. There may be slight improvement on the left. No pleural effusi on. Impression: Interstitial and patchy airspace disease mid and lower lungs persists. There may be minimal improveme nt on the left.
[2020-09-15] MEDS: CISATRACURIUM 200 MG in SODIUM CHLORIDE 0.9% 180 ML IV SCH (08:32)
[2020-09-15] MEDS: ASCORBIC ACID 500 MG TAB PO SCH ×2 (08:33→22:26)
[2020-09-15] MEDS: allopurinoL 300 MG TAB PO SCH (08:33)
[2020-09-15] MEDS: FAMOTIDINE 20 MG TAB PO SCH ×2 (08:33→22:25)
[2020-09-15] MEDS: CHLORHEXIDINE GLUCONATE 15 ML CUP MUCOUS MEM SCH ×2 (08:33→22:25)
[2020-09-15] MEDS: ASPIRIN 81 MG PO SCH (08:33)
[2020-09-15] MEDS: ATORVASTATIN 80 MG TAB PO SCH (08:33)
[2020-09-15] MEDS: METOPROLOL TARTRATE 12.5 MG TAB PO SCH ×2 (08:33→22:25)
[2020-09-15] MEDS: ENOXAPARIN 40 MG/0.4 ML SYRINGE SQ SCH ×2 (08:33→22:25)
[2020-09-15] MEDS: ZINC SULFATE 220 MG CAP PO SCH (08:33)
[2020-09-15] MEDS: CHOLECALCIFEROL 25 MCG (1000 IU) TABLET PO SCH (08:33)
[2020-09-15] MEDS: amLODIPine 10 MG TAB PO SCH (08:33)
[2020-09-15] MEDS: methylPREDNISolone SOD SUCCI 125 MG/2 ML VIAL IV SCH ×4 (08:40→23:52)
[2020-09-15] MEDS: fentaNYL (PF). 1,000 MCG in SODIUM CHLORIDE 0.9% 80 ML IV SCH (09:21)
--- NOTE | 2020-09-15 09:59 | P.PN ---
Subjective Progress Note Date: 09/15/20 Principal diagnosis: Acute hypoxic respiratory failure secondary to COVID-19 pneumonia and ARDS. 54-year-old white male patient who is an ex smoker, carries [id number] smoking history quit smoking 1 year ago in May, history of hypertension and gout who sees Dr. Contreras, presented to the emergency department on 08/02/2020 with complaints of worsening shortness of breath, cough, and patient was diagnosed with Covid 19 one week ago, was tested at [facility] per Dr. Contreras's order. 2 weeks ago he had symptoms of flulike illness, sore throat, shortness of breath, weakness, muscle aches which progressively became worse, and patient developed worsening shortness of breath and had difficulty breathing and ambulating at home. He was placed on Decadron [address] Contreras and he has 1-1/2 days worth left of it. Chest x-ray in the emergency department showed bilateral interstitial pneumonia. White blood cell count was 33.1, d-dimer was greater than 35.2, CO2 is 16, the rest of electrolytes were unremarkable, B1 is 35 creatinine is 1.04, plasma lactic acid is 4.5, patient was given IV fluids and lactic acid came down to 1.8, total bilirubin was 1.6, AST is 107, ALT is 48, alkaline phosphatase is 114, LDH is 5924, first troponin was 4.190, and the second one went up to 6.960. CRP is 180.3, pro-calcitonin level is 0.33, urinalysis showed 1+ protein, but no definite sign of infection, pulse ox is 86 on room air, patient has significant shortness of breath, and was placed on BiPAP support, currently with pressures of 12/6, and FiO2 of 100% on which he remains this morning, he is afebrile, hemodynamically he is stable, she was started on IV Decadron, we'll start him on intermediate dose of Lovenox 50 mg every 12 hours, CTA chest shows no evidence of pulmonary embolism, and extensive pulmonary infiltrates that are mostly interstitial consistent with severe interstitial pneumonia. Progress note dated 09/04/2020. 54-year-old male, admitted with a diagnosis of COVID 19 pneumonitis. Currently, he is on BiPAP at 12/6 and 90%. FiO2 will be dropped down to 80%. In addition, he is getting saline at 75 mL an hour. The patient's doing better today. He states that he feels better. He still short of breath with activity. I did tell him today to make sure he moves around in bed when he is laying in bed. White count 29.3, hemoglobin 14.6, hematocrit 42.7, platelet count 140,000. D- dimer greater than 34.10. Sodium 136, potassium 5.1, chlorides 105, CO2 25, anion gap 6, BUN 39, creatinine 0.9. LDH is 3965. C-reactive protein 143. Chest x-ray shows a worsening pattern of bilateral airspace disease. Progress note dated 09/05/2020. 54-year-old male, admitted with a diagnosis of COVID 19 pneumonitis. He remains on BiPAP with an FiO2 of 80%. Settings included an IPAP 12, EPAP 6. The patient states that he feels a bit better. He is getting saline at 75 mL an hour. He feels like he is breathing is improved. He does know to move about in bed. No new laboratory data today. His most recent chest x-ray was from yesterday and was reviewed. The patient's on appropriate medications. Progress note dated 09/06/2020. 54-year-old male, seen again today. The patient is on BiPAP, settings of IPAP 12, EPAP 6, and 90%. He is also getting saline at 75 mL an hour. Was admitted with a diagnosis of acute hypoxemic respiratory failure secondary to COVID 19 pneumonia. The patient feels about the same. No better or no worse. He will have a chest x-ray tomorrow. Labs are reviewed. White count 19.3, hemoglobin 15, hematocrit 43.9, and platelet count 92,000. Sodium 135, potassium 4.9, chlorides 109, CO2 20, anion gap 6, BUN 34, and creatinine 0.92. There is no recent chest x-ray to review. The patient is seen today 09/07/2020 in follow-up on the selective care unit. He is currently resting comfortably in bed. States he is doing a little better today compared to yesterday. He is still requiring BiPAP support 12/6 and 100% FiO2. Chest x-ray reveals stable bilateral lung infiltrates. Blood glucose 163. He remains on bronchodilators, vitamin supplements, dexamethasone, Lovenox. 0.9 normal saline at 75 ML's per hour. On 09/08/2020, the patient is being seen in follow-up on the [facility] units. The patient is a 54-year-old male patient with Covid 19 related pneumonia and the patient has diffuse stable by the pulmonary infiltrates. The patient remains on Decadron. The patient is also on Lovenox 40 mg subcu every 12 hours. The patient is also requiring BiPAP for respiratory support at a pressure of 12/6 cm of water and FiO2 of 100%. The patient is able to generate a tidal volume of 800 mL of the respiratory rate of 24 and a minute ventilation of 23 L. The patient Has elevated inflammatory markers and the last time the markers were checked were on 09/04/2020 with an LDH of 3965 and a CRP of 142. Levels will need to be rechecked. The d-dimer was above 34. The LDH level remains elevated at 3911. D-dimer is 24.6. The patient is also on IV fluids with normal saline at the rate of 75 mL an hour. The patient is on Decadron 6 because IV every 24 hours. The patient is also on Lovenox 40 mg subcu every 12 hours. His current BMI 31.5. On 09/09/2020, the patient is being seen for a follow-up. The patient continues to be on a BiPAP at a pressure of 12/6 cm of water with an FiO2 of 100%. The patient is awake and he requires assistance to be moved around. His tidal volume is in the order of 800 mL which is comparable to yesterday. A repeat chest x-ray was done and it shows some limited improvement in the bilateral pulmonary infiltrates. the patient remains on Decadron and the dose is currently at 60 mg IV every 12 hours. inflammatory markers are elevated with an LDH level of 3 911 and the CRP is 22.5. His d-dimer is still elevated at 24.6 and the patient is on Lovenox at a dose of 40 mg subcu every 12 hours.. On his problem continue to be the patient's hypoxemia, Covid 19 related pneumonia and global weakness. Unfortunately, the patient is unable to eat as the patient desaturates significantly was taken off the BiPAP. 09/10/2020 the patient remains BiPAP dependent at the pressure of 12/6 cm of water. His FiO2 is still 100%. He was still able to generate adequate tidal volumes while being on a BiPAP. He has had a PICC line yesterday as the patient was not meeting his caloric requirements and I was also contemplating the possibility of TPN. His chest x-ray remains unchanged with diffuse bilateral infiltrates consistent with Covid 19 related pneumonia. His blood work is showing a d-dimer of 24 from 2 days ago. Electrolytes are normal, and no new inflammatory markers. The current pulse ox is 92% on a BiPAP and the patient remains on Decadron 6 mg IV every 12 hours. 09/11/2020, the patient remains on a BiPAP at a pressure of 12/6 and FiO2 of 100%. He is quite lethargic. He is in mild degree of respiratory distress even at rest while on the BiPAP. Current pulse ox is 89%. A PICC line was inserted yesterday and the patient was also started on TPN for nutritional support knowing that he was able to eat and he was not meeting his caloric requirements. His d-dimer is 15. The patient is on Lovenox 50 mg subcu every 12 hours. The patient is also receiving Decadron 6 mg IV 12 hours. Current pulse ox is around 89%. No major changes condition since yesterday. No other new labs otherwise. His resting in bed comfortably. He is generating tidal volumes above >600cc with respiratory rate in the mid 20s. He had no signs of any fluid overload. Mentation is preserved. Looks lethargic. He is able to answer questions and following commands. No other significant issues otherwise for now. I will today's condition is essentially stable since yesterday. 09/12/2020 the patient remains on BiPAP 12/6 cm of water with an FiO2 of 100%. Condition is essentially the same and unchanged compared to yesterday. The patient is currently on a pulse ox of 94% on above-mentioned BiPAP setting. He remains on Decadron 6 mg IV every 12 hours. He also is on Lovenox 50 mg subcu every 12 hours. He has an LDH level of 5040 at a CRP of 8.2. His inflammatory markers were obtained yesterday and they were quite elevated. He is still able to generate tidal volumes above 500 and his respiratory rate currently is in the 00s for now. Chest x-ray is consistent with diffuse bilateral pulmonary infiltrates. He has a PICC line in his left upper extremity and the patient is receiving TPN for nutritional support. As mentioned, he remains weak and lethargic. He is arousable and follows commands and answering questions. 09/13/2020, the patient got transferred to the intensive care unit where the patient got intubated and placed on a mechanical ventilator. Note that the patient was maintaining relatively fine on the BiPAP and ultimately desaturates., Became more short of breath and unresponsive in the blood. Showed significant hypoxemia and he had to come in to the ICU where he was intubated and placed on a mechanical ventilator. At this point and he is sedated with propofol running at 50 mcg/kg per minute and the patient is also paralyzed with Nimbex at 3 mcg/kg per minute. He is currently on assist control mode at the rate of 32 with a tidal volume of 400 and FiO2 of 1% with a PEEP of 15. The blood gases post intubation showed a pH of 7.22 and a pCO2 of 61 and pO2 of 89. His chest x-ray showing adequate positioning of ET tube. He has diffuse bilateral pulmonary infiltrates consistent with Covid 19 related p neumonia. Peak airway pressure 38. Static pressures 34. He is well rested and paralyzed for now. His BP currently is running at 156/59 and the patient was quite hypertensive prior to his intubation. His blood pressure came up to 182/110 and currently it's more stable. Labs are still pending for now. Meanwhile, the patient remains on Decadron 6 mg IV every 12 hours. Is also on Lovenox 40 mg subcu twice a day. He was receiving TPN for nutritional support as the patient was unable to take any form of oral intake as he was very much BiPAP dependent. TPN will be discontinued and the patient will be transitioned to enteral feeding note that he is currently intubated on a mechanical venti lator. A central line was also inserted. IV fluids are running at the rate of 20 mL an hour of normal saline. TPN Is currently running at 90 mL an hour. 09/14/2020, the patient is intubated on a mechanical ventilator in the intensive care unit. The patient currently is sedated and paralyzed. Propofol is running at 40 mcg/kg per minute and the Nimbex is running at 1.8 mcg/kg per minute. He is adequately sedated and paralyzed. He is still assist-control mode of mechanical ventilation at the rate of 32 with a tidal volume of 400 and FiO2 of 100% and a PEEP of 15. His blood gases from today showed a pH of 7.29 and pCO2 of 62 and pO2 of 86. We are allowing permissive hypercapnia. The peak and static pressures today are 14 and 34 respectively. His chest x-ray from today showing diffuse bilateral pulmonary infiltrates more so in the lower lobes and there is extensive consolidation of the lower lobes bilaterally. ET tube is at the level of the aortic knob. NG tube is in place. The patient remains on Decadron and currently is at a dose of 6 mg IV every 12 hours. In terms of his blood work, his inflammatory markers show a drop in the LDH level which is down to 294 and a CRP level is down to 5.2. D-dimer from a few days ago was 15.6 and the patient remains on Lovenox at a dose of 40 mg subcu every 12 hours. His TPN has been discontinued and the patient was switched enteral feeding and the patient is currently on vital high protein at the rate of 20 mL an hour which is at goal for now. IV fluids running at 20 mL an hour. He is hemodynamically stable. His overall fluid balance has been +1.6 L over the past 24 hours. Note that this patient was intubated yesterday after failing BiPAP for several days. He was intubated on 08/12/2020. Family is aware. Patient was reevaluated today on 07/18/2020, remains intubated and mechanically ventilated. Patient is presently on assist control rate of 52 tidal volume is 400 FiO2 at 90% PEEP is 15 ABG showed a pO2 of 77 pCO2 of 64 pH of 7.30. His peak airway pressure is 47 static pressure is 43. Attempted to adjust the PEEP higher, however he static pressure was getting much higher. Hence The PEEP at 15. And I adjusted the flow rate down to 60. He is on multiple drips including Nimbex at 1.5 mcg/kg/minute. he is on propofol at 40 mcg/kg per minute. Patient remains on permissive hypercapnia with a pCO2 of 64 pH of 7.30. Today considering the patient is on Nimbex I added fentanyl and 0.25 mcg/kg/h. And I switch his Decadron to Solu-Medrol at 60 mg IV push every 6 hours. Patient was intubated on 09/13 has been in the ICU since 09/13 he was actually admitted on 09/02 feeding gomez he is on HP20 mL per hour. Patient is sedated and paralyzed. Chest x-ray continues to show bilateral patchy infiltrates. Not much of a change noted. Objective - Vital Signs Vital signs: Vital Signs Temp 99.6 F 09/15/20 04:00 Pulse 77 09/15/20 07:00 Resp 32 H 09/15/20 07:00 BP 137/73 09/15/20 07:00 Pulse Ox 91 L 09/15/20 07:00 Intake & Output 09/14/20 09/15/20 09/15/20 18:59 06:59 18:59 Intake Total 505.821 0985.572 75.249 Output Total 960 1090 100 Balance -203.183 -65.428 -24.751 Weight 92.4 kg Intake: IV 220 240 20 Sodium Chloride 0.9% 1, 220 240 20 000 ml @ 20 mls/hr IV . Q24H [facility]ER Rx#:[id number] Intake, IV Titration 196.817 454.572 35.249 Amount Cisatracurium 200 mg In 47.461 129.188 35.249 Sodium Chloride 0.9% 180 ml @ 1 MCG/KG/MIN 5.61 mls/hr IV .Q24H [facility] Rx#: [id number] propofoL 1,000 mg In 149.356 325.384 Empty Bag 1 bag @ Titrate IV .Q0M [facility] Rx#: [id number] Oral 100 Tube Feeding 240 240 20 Other 90 Output: Urine 960 1090 100 Other: Voiding Method Indwelling Catheter Indwelling Catheter ABP, PAP, CO, CI - Last Documented Arterial Blood Pressure 154/61 - Exam GENERAL EXAM: Revealed 54-year-old male intubated and mechanically ventilated, sedated and paralyzed, in no distress. HEAD: Normocephalic. Atraumatic, endotracheal tube and orogastric tube is intact. EYES: PERRLA, EOMI, nonicteric.. NOSE: Clear with pink turbinates. THROAT: No erythema or exudates. NECK: No masses, no JVD. CHEST: No chest wall deformity. LUNGS: Records and rhonchi noted bilaterally. CVS: S1 and S2 normal with no audible murmur, regular rhythm. ABDOMEN: No hepatosplenomegaly, normal bowel sounds, no guarding or rigidity. Musculoskeletal: No deformities. SKIN: No rashes CENTRAL NERVOUS SYSTEM: Not assess EXTREMITIES: No clubbing edema or cyanosis. Psychiatric: Could not assess. - Labs CBC & Chem 7: 09/15/20 03:45 09/15/20 03:45 Labs: Abnormal Lab Results - Last 24 Hours (Table) 09/14/20 09/14/20 09/15/20 Range/Units 03:40 06:00 03:45 WBC (3.8-10.6) k/uL Plt Count 69 L (150-450) k/uL D-Dimer 11.41 H (<0.60) mg/L FEU ABG pH (7.35-7.45) ABG pCO2 (35-45) mmHg ABG pO2 (83-108) mmHg ABG HCO3 (21-25) mmol/L ABG Total CO2 (19-24) mmol/L Potassium 5.2 H (3.5-5.1) mmol/L Carbon Dioxide 33 H (22-30) mmol/L BUN 47 H (9-20) mg/dL Glucose 151 H (74-99) mg/dL Magnesium 2.8 H (1.6-2.3) mg/dL Lactate Dehydrogenase 2036 H (313-618) U/L C-Reactive Protein 2.6 H (<1.0) mg/dL 09/15/20 09/15/20 09/15/20 Range/Units 03:45 03:45 04:41 WBC 21.8 H (3.8-10.6) k/uL Plt Count 90 L (150-450) k/uL D-Dimer 6.62 H (<0.60) mg/L FEU ABG pH 7.30 L (7.35-7.45) ABG pCO2 64 H (35-45) mmHg ABG pO2 77 L (83-108) mmHg ABG HCO3 32 H (21-25) mmol/L ABG Total CO2 34 H (19-24) mmol/L Potassium (3.5-5.1) mmol/L Carbon Dioxide (22-30) mmol/L BUN (9-20) mg/dL Glucose (74-99) mg/dL Magnesium (1.6-2.3) mg/dL Lactate Dehydrogenase (313-618) U/L C-Reactive Protein (<1.0) mg/dL Assessment and Plan Assessment: Impression: Acute hypoxic respiratory failure secondary to acute COVID-19 pneumonia with ARDS. Patient received toci, and convalescent plasma, remains on the COVID-19 cocktail. Remains on Lovenox every 12 hours. Patient was intubated on 09/12 not ready for any form of weaning. Continues to have high PEEP, high peak airway pressure, high static pressure, could not manipulate the PEEP any further. Remains on 90% FiO2. Elevated inflammatory markers secondary to above Benign essential hypertension Former smoker. Recommendation: Continue ventilatory support Continue nutritional support Address vent settings on a daily basis. Change Decadron to Solu-Medrol. Continue Lovenox at 40 mg subcu twice a day Continue the COVID-19 cocktail. Patient received convalescent plasma and toci Continue to monitor inflammatory markers. Continue GI and DVT prophylaxis Chest x-ray was reviewed today. Condition remains critical. Critical care time is over 30 minutes. Time with Patient: Greater than 30
[2020-09-15 10:49] LABS: Ferritin 1632.9 ng/mL (22.0-322.0)
[2020-09-15] MEDS: SODIUM CHLORIDE 0.9% 1,000 ML IV SCH (19:09)
[2020-09-16] MEDS: fentaNYL (PF). 1,000 MCG in SODIUM CHLORIDE 0.9% 80 ML IV SCH (01:54)
[2020-09-16 04:32] LABS: ABG Base Excess 5.2 mmol/L; ABG HCO3 32 mmol/L (21-25); ABG Oxygen Saturation 94.7 % (94-97); ABG PCO2 68 mmHg (35-45); ABG PH 7.28 (7.35-7.45); ABG PO2 77 mmHg (83-108); ABG TCO2 34 mmol/L (19-24); Allen Test Performed? Yes
[2020-09-16 05:46] LABS: HCT 39.3 % (39.0-53.0); HGB 13.4 gm/dL (13.0-17.5); MCHC 34.1 g/dL (31.0-37.0); MCV 93.7 fL (80.0-100.0); Mean Platelet Volume 8.5; RBC 4.19 m/uL (4.30-5.90); RDW 14.9 % (11.5-15.5); WBC 19.5 k/uL (3.8-10.6)
[2020-09-16 06:19] LABS: C Reactive Protein 1.5 mg/dL (<1.0); Calcium 8.7 mg/dL (8.4-10.2); Potassium 5.4 mmol/L (3.5-5.1)
[2020-09-16] MEDS: methylPREDNISolone SOD SUCCI 125 MG/2 ML VIAL IV SCH ×3 (06:20→17:29)
[2020-09-16 06:37] LABS: Platelet Count 92 k/uL (150-450)
[2020-09-16] MEDS: ALBUTEROL HFA INHALER INHALATION SCH ×4 (07:16→20:11)
--- NOTE | 2020-09-16 07:21 | XR ---
EXAMINATION TYPE: XR chest 1V portable DATE OF EXAM: 09/16/2020 Comparison: 09/15/2020 Clinical History: 54-year-old male Tube placement Findings: ET and NG tubes are satisfactory. Left PICC tip to the upper SVC level. Heart normal size. Interstiti al densities and patchy mid and lower lung opacities persist without significant change. Impression: Stable patchy mid and lower lung infiltrates.
[2020-09-16] MEDS: CHLORHEXIDINE GLUCONATE 15 ML CUP MUCOUS MEM SCH ×2 (09:03→19:49)
[2020-09-16] MEDS: METOPROLOL TARTRATE 12.5 MG TAB PO SCH ×2 (09:04→19:49)
[2020-09-16] MEDS: ASCORBIC ACID 500 MG TAB PO SCH ×2 (09:04→19:49)
[2020-09-16] MEDS: ASPIRIN 81 MG PO SCH (09:04)
[2020-09-16] MEDS: ATORVASTATIN 80 MG TAB PO SCH (09:04)
[2020-09-16] MEDS: CHOLECALCIFEROL 25 MCG (1000 IU) TABLET PO SCH (09:04)
[2020-09-16] MEDS: allopurinoL 300 MG TAB PO SCH (09:04)
[2020-09-16] MEDS: ZINC SULFATE 220 MG CAP PO SCH (09:04)
[2020-09-16] MEDS: FAMOTIDINE 20 MG TAB PO SCH ×2 (09:05→19:49)
[2020-09-16] MEDS: amLODIPine 10 MG TAB PO SCH (09:05)
[2020-09-16] MEDS: ENOXAPARIN 40 MG/0.4 ML SYRINGE SQ SCH ×2 (09:06→19:50)
[2020-09-16] MEDS: CISATRACURIUM 200 MG in SODIUM CHLORIDE 0.9% 180 ML IV SCH (10:09)
[2020-09-16] MEDS: ACETAMINOPHEN TAB 325 MG TAB PO PRN (11:48)
--- NOTE | 2020-09-16 11:52 | P.PN ---
Subjective Progress Note Date: 09/16/20 Principal diagnosis: Acute hypoxic respiratory failure secondary to COVID-19 pneumonia and ARDS. 54-year-old white male patient who is an ex smoker, carries [id number] smoking history quit smoking 1 year ago in May, history of hypertension and gout who sees Dr. Contreras, presented to the emergency department on 08/02/2020 with complaints of worsening shortness of breath, cough, and patient was diagnosed with Covid 19 one week ago, was tested at [facility] per Dr. Contreras's order. 2 weeks ago he had symptoms of flulike illness, sore throat, shortness of breath, weakness, muscle aches which progressively became worse, and patient developed worsening shortness of breath and had difficulty breathing and ambulating at home. He was placed on Decadron [address] Contreras and he has 1-1/2 days worth left of it. Chest x-ray in the emergency department showed bilateral interstitial pneumonia. White blood cell count was 33.1, d-dimer was greater than 35.2, CO2 is 16, the rest of electrolytes were unremarkable, B1 is 35 creatinine is 1.04, plasma lactic acid is 4.5, patient was given IV fluids and lactic acid came down to 1.8, total bilirubin was 1.6, AST is 107, ALT is 48, alkaline phosphatase is 114, LDH is 5924, first troponin was 4.190, and the second one went up to 6.960. CRP is 180.3, pro-calcitonin level is 0.33, urinalysis showed 1+ protein, but no definite sign of infection, pulse ox is 86 on room air, patient has significant shortness of breath, and was placed on BiPAP support, currently with pressures of 12/6, and FiO2 of 100% on which he remains this morning, he is afebrile, hemodynamically he is stable, she was started on IV Decadron, we'll start him on intermediate dose of Lovenox 50 mg every 12 hours, CTA chest shows no evidence of pulmonary embolism, and extensive pulmonary infiltrates that are mostly interstitial consistent with severe interstitial pneumonia. Progress note dated 09/04/2020. 54-year-old male, admitted with a diagnosis of COVID 19 pneumonitis. Currently, he is on BiPAP at 12/6 and 90%. FiO2 will be dropped down to 80%. In addition, he is getting saline at 75 mL an hour. The patient's doing better today. He states that he feels better. He still short of breath with activity. I did tell him today to make sure he moves around in bed when he is laying in bed. White count 29.3, hemoglobin 14.6, hematocrit 42.7, platelet count 140,000. D- dimer greater than 34.10. Sodium 136, potassium 5.1, chlorides 105, CO2 25, anion gap 6, BUN 39, creatinine 0.9. LDH is 3965. C-reactive protein 143. Chest x-ray shows a worsening pattern of bilateral airspace disease. Progress note dated 09/05/2020. 54-year-old male, admitted with a diagnosis of COVID 19 pneumonitis. He remains on BiPAP with an FiO2 of 80%. Settings included an IPAP 12, EPAP 6. The patient states that he feels a bit better. He is getting saline at 75 mL an hour. He feels like he is breathing is improved. He does know to move about in bed. No new laboratory data today. His most recent chest x-ray was from yesterday and was reviewed. The patient's on appropriate medications. Progress note dated 09/06/2020. 54-year-old male, seen again today. The patient is on BiPAP, settings of IPAP 12, EPAP 6, and 90%. He is also getting saline at 75 mL an hour. Was admitted with a diagnosis of acute hypoxemic respiratory failure secondary to COVID 19 pneumonia. The patient feels about the same. No better or no worse. He will have a chest x-ray tomorrow. Labs are reviewed. White count 19.3, hemoglobin 15, hematocrit 43.9, and platelet count 92,000. Sodium 135, potassium 4.9, chlorides 109, CO2 20, anion gap 6, BUN 34, and creatinine 0.92. There is no recent chest x-ray to review. The patient is seen today 09/07/2020 in follow-up on the selective care unit. He is currently resting comfortably in bed. States he is doing a little better today compared to yesterday. He is still requiring BiPAP support 12/6 and 100% FiO2. Chest x-ray reveals stable bilateral lung infiltrates. Blood glucose 163. He remains on bronchodilators, vitamin supplements, dexamethasone, Lovenox. 0.9 normal saline at 75 ML's per hour. On 09/08/2020, the patient is being seen in follow-up on the [facility] units. The patient is a 54-year-old male patient with Covid 19 related pneumonia and the patient has diffuse stable by the pulmonary infiltrates. The patient remains on Decadron. The patient is also on Lovenox 40 mg subcu every 12 hours. The patient is also requiring BiPAP for respiratory support at a pressure of 12/6 cm of water and FiO2 of 100%. The patient is able to generate a tidal volume of 800 mL of the respiratory rate of 24 and a minute ventilation of 23 L. The patient Has elevated inflammatory markers and the last time the markers were checked were on 09/04/2020 with an LDH of 3965 and a CRP of 142. Levels will need to be rechecked. The d-dimer was above 34. The LDH level remains elevated at 3911. D-dimer is 24.6. The patient is also on IV fluids with normal saline at the rate of 75 mL an hour. The patient is on Decadron 6 because IV every 24 hours. The patient is also on Lovenox 40 mg subcu every 12 hours. His current BMI 31.5. On 09/09/2020, the patient is being seen for a follow-up. The patient continues to be on a BiPAP at a pressure of 12/6 cm of water with an FiO2 of 100%. The patient is awake and he requires assistance to be moved around. His tidal volume is in the order of 800 mL which is comparable to yesterday. A repeat chest x-ray was done and it shows some limited improvement in the bilateral pulmonary infiltrates. the patient remains on Decadron and the dose is currently at 60 mg IV every 12 hours. inflammatory markers are elevated with an LDH level of 3 911 and the CRP is 22.5. His d-dimer is still elevated at 24.6 and the patient is on Lovenox at a dose of 40 mg subcu every 12 hours.. On his problem continue to be the patient's hypoxemia, Covid 19 related pneumonia and global weakness. Unfortunately, the patient is unable to eat as the patient desaturates significantly was taken off the BiPAP. 09/10/2020 the patient remains BiPAP dependent at the pressure of 12/6 cm of water. His FiO2 is still 100%. He was still able to generate adequate tidal volumes while being on a BiPAP. He has had a PICC line yesterday as the patient was not meeting his caloric requirements and I was also contemplating the possibility of TPN. His chest x-ray remains unchanged with diffuse bilateral infiltrates consistent with Covid 19 related pneumonia. His blood work is showing a d-dimer of 24 from 2 days ago. Electrolytes are normal, and no new inflammatory markers. The current pulse ox is 92% on a BiPAP and the patient remains on Decadron 6 mg IV every 12 hours. 09/11/2020, the patient remains on a BiPAP at a pressure of 12/6 and FiO2 of 100%. He is quite lethargic. He is in mild degree of respiratory distress even at rest while on the BiPAP. Current pulse ox is 89%. A PICC line was inserted yesterday and the patient was also started on TPN for nutritional support knowing that he was able to eat and he was not meeting his caloric requirements. His d-dimer is 15. The patient is on Lovenox 50 mg subcu every 12 hours. The patient is also receiving Decadron 6 mg IV 12 hours. Current pulse ox is around 89%. No major changes condition since yesterday. No other new labs otherwise. His resting in bed comfortably. He is generating tidal volumes above >600cc with respiratory rate in the mid 20s. He had no signs of any fluid overload. Mentation is preserved. Looks lethargic. He is able to answer questions and following commands. No other significant issues otherwise for now. I will today's condition is essentially stable since yesterday. 09/12/2020 the patient remains on BiPAP 12/6 cm of water with an FiO2 of 100%. Condition is essentially the same and unchanged compared to yesterday. The patient is currently on a pulse ox of 94% on above-mentioned BiPAP setting. He remains on Decadron 6 mg IV every 12 hours. He also is on Lovenox 50 mg subcu every 12 hours. He has an LDH level of 5040 at a CRP of 8.2. His inflammatory markers were obtained yesterday and they were quite elevated. He is still able to generate tidal volumes above 500 and his respiratory rate currently is in the 00s for now. Chest x-ray is consistent with diffuse bilateral pulmonary infiltrates. He has a PICC line in his left upper extremity and the patient is receiving TPN for nutritional support. As mentioned, he remains weak and lethargic. He is arousable and follows commands and answering questions. 09/13/2020, the patient got transferred to the intensive care unit where the patient got intubated and placed on a mechanical ventilator. Note that the patient was maintaining relatively fine on the BiPAP and ultimately desaturates., Became more short of breath and unresponsive in the blood. Showed significant hypoxemia and he had to come in to the ICU where he was intubated and placed on a mechanical ventilator. At this point and he is sedated with propofol running at 50 mcg/kg per minute and the patient is also paralyzed with Nimbex at 3 mcg/kg per minute. He is currently on assist control mode at the rate of 32 with a tidal volume of 400 and FiO2 of 1% with a PEEP of 15. The blood gases post intubation showed a pH of 7.22 and a pCO2 of 61 and pO2 of 89. His chest x-ray showing adequate positioning of ET tube. He has diffuse bilateral pulmonary infiltrates consistent with Covid 19 related p neumonia. Peak airway pressure 38. Static pressures 34. He is well rested and paralyzed for now. His BP currently is running at 156/59 and the patient was quite hypertensive prior to his intubation. His blood pressure came up to 182/110 and currently it's more stable. Labs are still pending for now. Meanwhile, the patient remains on Decadron 6 mg IV every 12 hours. Is also on Lovenox 40 mg subcu twice a day. He was receiving TPN for nutritional support as the patient was unable to take any form of oral intake as he was very much BiPAP dependent. TPN will be discontinued and the patient will be transitioned to enteral feeding note that he is currently intubated on a mechanical venti lator. A central line was also inserted. IV fluids are running at the rate of 20 mL an hour of normal saline. TPN Is currently running at 90 mL an hour. 09/14/2020, the patient is intubated on a mechanical ventilator in the intensive care unit. The patient currently is sedated and paralyzed. Propofol is running at 40 mcg/kg per minute and the Nimbex is running at 1.8 mcg/kg per minute. He is adequately sedated and paralyzed. He is still assist-control mode of mechanical ventilation at the rate of 32 with a tidal volume of 400 and FiO2 of 100% and a PEEP of 15. His blood gases from today showed a pH of 7.29 and pCO2 of 62 and pO2 of 86. We are allowing permissive hypercapnia. The peak and static pressures today are 14 and 34 respectively. His chest x-ray from today showing diffuse bilateral pulmonary infiltrates more so in the lower lobes and there is extensive consolidation of the lower lobes bilaterally. ET tube is at the level of the aortic knob. NG tube is in place. The patient remains on Decadron and currently is at a dose of 6 mg IV every 12 hours. In terms of his blood work, his inflammatory markers show a drop in the LDH level which is down to 294 and a CRP level is down to 5.2. D-dimer from a few days ago was 15.6 and the patient remains on Lovenox at a dose of 40 mg subcu every 12 hours. His TPN has been discontinued and the patient was switched enteral feeding and the patient is currently on vital high protein at the rate of 20 mL an hour which is at goal for now. IV fluids running at 20 mL an hour. He is hemodynamically stable. His overall fluid balance has been +1.6 L over the past 24 hours. Note that this patient was intubated yesterday after failing BiPAP for several days. He was intubated on 08/12/2020. Family is aware. Patient was reevaluated today on 09/15/2020, remains intubated and mechanically ventilated. Patient is presently on assist control rate of 52 tidal volume is 400 FiO2 at 90% PEEP is 15 ABG showed a pO2 of 77 pCO2 of 64 pH of 7.30. His peak airway pressure is 47 static pressure is 43. Attempted to adjust the PEEP higher, however he static pressure was getting much higher. Hence The PEEP at 15. And I adjusted the flow rate down to 60. He is on multiple drips including Nimbex at 1.5 mcg/kg/minute. he is on propofol at 40 mcg/kg per minute. Patient remains on permissive hypercapnia with a pCO2 of 64 pH of 7.30. Today considering the patient is on Nimbex I added fentanyl and 0.25 mcg/kg/h. And I switch his Decadron to Solu-Medrol at 60 mg IV push every 6 hours. Patient was intubated on 09/13 has been in the ICU since 09/13 he was actually admitted on 09/02 feeding gomez he is on HP20 mL per hour. Patient is sedated and paralyzed. Chest x-ray continues to show bilateral patchy infiltrates. Not much of a change noted. Patient was reevaluated today on 09/16/2020, remains in the ICU, intubated and mechanically ventilated. He is now on ventilator settings assist control rate of 3 to tell volume is 400 FiO2 80% and PEEP of 16. ABG showed a pO2 of 77 pCO2 of 68 pH of 7.28. Patient remains on propofol at 40, Nimbex at 1.2 fentanyl 0.5, IV fluid at KVO. FiO2 was decreased today from on the percent to 80%, and increase the flow rate to 65 L/m. Chest x-ray is showing no significant change. Patient remains fully sedated and paralyzed. He is on tube feeding using vital HP at 20 mL per hour. Electrolytes were reviewed potassium is 5.4. BUN is 55 creatinine 1.1, hence increase his IV fluid rate to 100 mL per hour. Bit of leukocytosis noted today, but improved compared to yesterday WBC count is 19.5 hemoglobin is 13.4. LDH continues on the rise to 081, and C-reactive protein is better at 1.5. Objective - Vital Signs Vital signs: Vital Signs Temp 99.9 F H 09/16/20 08:00 Pulse 66 09/16/20 11:00 Resp 32 H 09/16/20 11:00 BP 119/66 09/16/20 11:00 Pulse Ox 91 L 09/16/20 11:00 Intake & Output 09/15/20 09/16/20 09/16/20 18:59 06:59 18:59 Intake Total 745.249 938.702 735.007 Output Total 980 1440 310 Balance -234.751 -501.298 425.007 Weight 90.4 kg Intake: IV 270 299 332 Pressure bag 30 39 12 Sodium Chloride 0.9% 1, 240 260 320 000 ml @ 100 mls/hr IV . Q10H [facility] Rx#:[id number] Intake, IV Titration 135.249 339.702 193.007 Amount Cisatracurium 200 mg In 35.249 86.918 97.951 Sodium Chloride 0.9% 180 ml @ 1 MCG/KG/MIN 5.61 mls/hr IV .Q24H [facility] Rx#: [id number] fentaNYL (PF). 1,000 mcg 52.784 In Sodium Chloride 0.9% 80 ml @ Per Protocol IV . Q0M [facility] Rx#:[id number] propofoL 1,000 mg In 100 200 95.056 Empty Bag 1 bag @ Titrate IV .Q0M [facility] Rx#: [id number] Oral 100 Tube Feeding 240 300 80 Other 130 Output: Urine 980 1440 310 Stool 0 0 Other: Voiding Method Indwelling Catheter Indwelling Catheter Indwelling Catheter ABP, PAP, CO, CI - Last Documented Arterial Blood Pressure 141/56 - Exam GENERAL EXAM: Revealed 54-year-old male intubated and mechanically ventilated, sedated and paralyzed, in no distress. HEAD: Normocephalic. Atraumatic, endotracheal tube and orogastric tube is intact. EYES: PERRLA, EOMI, nonicteric.. NOSE: Clear with pink turbinates. THROAT: No erythema or exudates. NECK: No masses, no JVD. CHEST: No chest wall deformity. LUNGS: Records and rhonchi noted bilaterally. CVS: S1 and S2 normal with no audible murmur, regular rhythm. ABDOMEN: No hepatosplenomegaly, normal bowel sounds, no guarding or rigidity. Musculoskeletal: No deformities. SKIN: No rashes CENTRAL NERVOUS SYSTEM: Not assess EXTREMITIES: No clubbing edema or cyanosis. Psychiatric: Could not assess. - Labs CBC & Chem 7: 09/16/20 04:47 09/16/20 04:47 Labs: Abnormal Lab Results - Last 24 Hours (Table) 09/16/20 09/16/20 09/16/20 Range/Units 04:28 04:47 04:47 WBC 19.5 H (3.8-10.6) k/uL RBC 4.19 L (4.30-5.90) m/uL Plt Count 92 L (150-450) k/uL D-Dimer (<0.60) mg/L FEU ABG pH 7.28 L (7.35-7.45) ABG pCO2 68 H (35-45) mmHg ABG pO2 77 L (83-108) mmHg ABG HCO3 32 H (21-25) mmol/L ABG Total CO2 34 H (19-24) mmol/L Potassium 5.4 H (3.5-5.1) mmol/L Carbon Dioxide 32 H (22-30) mmol/L BUN 55 H (9-20) mg/dL Glucose 182 H (74-99) mg/dL Lactate Dehydrogenase 2081 H (313-618) U/L C-Reactive Protein 1.5 H (<1.0) mg/dL 09/16/20 Range/Units 10:25 WBC (3.8-10.6) k/uL RBC (4.30-5.90) m/uL Plt Count (150-450) k/uL D-Dimer 4.91 H (<0.60) mg/L FEU ABG pH (7.35-7.45) ABG pCO2 (35-45) mmHg ABG pO2 (83-108) mmHg ABG HCO3 (21-25) mmol/L ABG Total CO2 (19-24) mmol/L Potassium (3.5-5.1) mmol/L Carbon Dioxide (22-30) mmol/L BUN (9-20) mg/dL Glucose (74-99) mg/dL Lactate Dehydrogenase (313-618) U/L C-Reactive Protein (<1.0) mg/dL Assessment and Plan Assessment: Impression: Acute hypoxic respiratory failure secondary to acute COVID-19 pneumonia with ARDS. Patient received toci, and convalescent plasma, remains on the COVID-19 cocktail. Remains on Lovenox every 12 hours. Patient was intubated on 09/12 not ready for any form of weaning. Continues to have high PEEP, high peak airway pressure, high static pressure, PEEP remains at 16, FiO2 was cut down to 80%. Elevated inflammatory markers secondary to above Benign essential hypertension Former smoker. Recommendation: Continue ventilatory support, minimal change in the ventilator settings as noted above. Continue nutritional support. Change Solu-Medrol. Continue Lovenox at 40 mg subcu twice a day Continue the COVID-19 cocktail. Patient received convalescent plasma and toci Continue to monitor inflammatory markers. Continue GI and DVT prophylaxis Patient remains critically ill, critical care time is over 30 minutes. Time with Patient: Greater than 30
--- NOTE | 2020-09-16 16:13 | P.PN ---
Subjective Progress Note Date: 09/16/20 This is a 54-year-old male was recently admitted with shortness of breath and cough episodes of diarrhea nausea and generalized body aches and fevers and was recently diagnosed with COVID-19 one week prior to hospitalization. Patient continues to be intubated and sedated on mechanical ventilator and being closely monitored in the ICU. Pulmonary following closely. Chest x-ray today shows stable patchy mid and lower lung infiltrates persist without significant change. D-dimer slightly trending down at 4.91 and white blood count is 19.5, hemoglobin is stable at 13.4, sodium is 140 with a potassium of 5.4 and current creatinine is 1.21. LDH elevated at 2081 and CRP slowly trending down at 1.5. Patient continues on mechanical vent and FiO2 titrated down to 65. Patient continues on Nimbex along with fentanyl and propofol for sedation. Patient to continue on IV steroids along with Lovenox and vitamin and zinc supplements. Review of systems: Unable to obtain as patient is currently intubated and sedated Active Medications Acetaminophen (Acetaminophen Tab 325 Mg Tab) 650 mg PO Q6HR PRN PRN Reason: Fever and/ or Pain Last Admin: 09/16/20 11:48 Dose: 650 mg Documented by: Albuterol Sulfate (Albuterol Hfa Inhaler) 2 puff INHALATION RT-QID PRN PRN Reason: Shortness Of Breath Last Admin: 09/04/20 17:46 Dose: 2 puff Documented by: Albuterol Sulfate (Albuterol Hfa Inhaler) 2 puff INHALATION RT-QID [facility] Last Admin: 09/16/20 15:41 Dose: 2 puff Documented by: Allopurinol (Allopurinol 300 Mg Tab) 300 mg PO DAILY [facility] Last Admin: 09/16/20 09:04 Dose: 300 mg Documented by: Amlodipine Besylate (Amlodipine 10 Mg Tab) 10 mg PO DAILY [facility] Last Admin: 09/16/20 09:05 Dose: 10 mg Documented by: Ascorbic Acid (Ascorbic Acid 500 Mg Tab) 500 mg PO BID [facility] Last Admin: 09/16/20 09:04 Dose: 500 mg Documented by: Aspirin (Aspirin 81 Mg) 81 mg PO DAILY [facility] Last Admin: 09/16/20 09:04 Dose: 81 mg Documented by: Atorvastatin Calcium (Atorvastatin 80 Mg Tab) 80 mg PO DAILY [facility] Last Admin: 09/16/20 09:04 Dose: 80 mg Documented by: Benzonatate (Benzonatate 100 Mg Cap) 200 mg PO TID PRN PRN Reason: Cough Last Admin: 09/12/20 17:56 Dose: 200 mg Documented by: Chlorhexidine Gluconate (Chlorhexidine Gluconate 15 Ml Cup) 15 ml MUCOUS MEM BID [facility] Last Admin: 09/16/20 09:03 Dose: 15 ml Documented by: Cholecalciferol (Cholecalciferol 25 Mcg (1000 Iu) Tablet) 125 mcg PO DAILY [facility] Last Admin: 09/16/20 09:04 Dose: 125 mcg Documented by: Enoxaparin Sodium (Enoxaparin 40 Mg/0.4 Ml Syringe) 40 mg SQ BID [facility] Last Admin: 09/16/20 09:06 Dose: 40 mg Documented by: Famotidine (Famotidine 20 Mg Tab) 20 mg PO BID [facility] Last Admin: 09/16/20 09:05 Dose: 20 mg Documented by: Guaifenesin (Guaifenesin Syrup 100mg/5ml 200 Mg/10 Ml Cup) 200 mg PO Q6H PRN PRN Reason: Cough Last Admin: 09/12/20 23:40 Dose: 200 mg Documented by: Guaifenesin/Codeine Phosphate (Guaifenesin-Coden 100-10mg/5ml 10 Ml Cup) 10 ml PO Q8H PRN PRN Reason: Cough Last Admin: 09/12/20 08:23 Dose: 10 ml Documented by: Heparin Sodium (Porcine) (Heparin Sodium 1,000 Un/Ml (10ml Vl)) 0 unit IV PER PROTOCOL PRN; Protocol PRN Reason: Low PTT Last Admin: 09/03/20 17:35 Dose: 4,900 unit Documented by: Sodium Chloride (Saline 0.9%) 1,000 mls @ 100 mls/hr IV .Q10H [facility] Last Admin: 09/15/20 19:09 Dose: 20 mls/hr Documented by: Propofol 1,000 mg/ IV Solution 100 mls @ 0 mls/hr IV .Q0M [facility]; Protocol Last Admin: 09/16/20 14:58 Dose: 40 mcg/kg/min, 21.936 mls/hr Documented by: Cisatracurium Besylate 200 mg/ (Sodium Chloride) 200 mls @ 5.61 mls/hr IV .Q24H [facility]; Protocol Last Admin: 09/16/20 10:09 Dose: 1.2 mcg/kg/min, 6.732 mls/hr Documented by: Fentanyl Citrate 1,000 mcg/ (Sodium Chloride) 100 mls @ 0 mls/hr IV .Q0M [facility]; Protocol Last Admin: 09/16/20 01:54 Dose: 0.5 mcg/kg/hr, 4.62 mls/hr Documented by: Methylprednisolone Sodium Succinate (Methylprednisolone Sod Succi 125 Mg/2 Ml Vial) 60 mg IV Q6HR [facility] Last Admin: 09/16/20 11:46 Dose: 60 mg Documented by: Metoprolol Tartrate (Metoprolol Tartrate 12.5 Mg Tab) 12.5 mg PO BID [facility] Last Admin: 09/16/20 09:04 Dose: 12.5 mg Documented by: Naloxone HCl (Naloxone 0.4 Mg/Ml 1 Ml Vial) 0.2 mg IV Q2M PRN PRN Reason: Opioid Reversal Nitroglycerin (Nitroglycerin Sl Tabs 0.4 Mg Tab) 0.4 mg SUBLINGUAL Q5M PRN PRN Reason: Chest Pain Last Admin: 09/07/20 03:35 Dose: 0.4 mg Documented by: Promethazine HCl (Promethazine Hcl 6.25 Mg/5 Ml Cup) 12.5 mg PO QID PRN PRN Reason: Cough Last Admin: 09/06/20 02:07 Dose: 12.5 mg Documented by: Zinc Sulfate (Zinc Sulfate 220 Mg Cap) 220 mg PO DAILY [facility] Last Admin: 09/16/20 09:04 Dose: 220 mg Documented by: Objective - Vital Signs Vital signs: Vital Signs Temp 98.2 F 09/16/20 03:00 Pulse 71 09/16/20 07:00 Resp 32 H 09/16/20 07:00 BP 116/67 09/16/20 07:00 Pulse Ox 92 L 09/16/20 07:00 Intake & Output 09/15/20 09/16/20 09/16/20 18:59 06:59 18:59 Intake Total 745.249 938.702 Output Total 980 1440 Balance -234.751 -501.298 Weight 90.4 kg Intake: IV 270 299 Pressure bag 30 39 Sodium Chloride 0.9% 1, 240 260 000 ml @ 20 mls/hr IV . Q24H [facility] Rx#:[id number] Intake, IV Titration 135.249 339.702 Amount Cisatracurium 200 mg In 35.249 86.918 Sodium Chloride 0.9% 180 ml @ 1 MCG/KG/MIN 5.61 mls/hr IV .Q24H [facility] Rx#: [id number] fentaNYL (PF). 1,000 mcg 52.784 In Sodium Chloride 0.9% 80 ml @ Per Protocol IV . Q0M [facility] Rx#:[id number] propofoL 1,000 mg In 100 200 Empty Bag 1 bag @ Titrate IV .Q0M [facility] Rx#: [id number] Oral 100 Tube Feeding 240 300 Output: Urine 980 1440 Stool 0 Other: Voiding Method Indwelling Catheter Indwelling Catheter ABP, PAP, CO, CI - Last Documented Arterial Blood Pressure 129/62 - Exam Gen: This is a 54-year-old male currently intubated and sedated. Temp is 99.9F axillary, pulse is 71, respirations are 32, blood pressure is 118/66, oxygen saturation is 88-91% with an FiO2 of 65 HEENT: Head is atraumatic, normocephalic. Pupils equal, round. Sclerae is anicteric. NECK: Supple. No JVD. No lymphadenopathy. No thyromegaly. LUNGS: diminished breath sounds bilaterally with some scattered rhonchi and crackles noted. Tachypneic. No intercostal retractions. HEART: S1, S2 are muffled ABDOMEN: Soft. Bowel sounds are present. No masses. No tenderness. EXTREMITIES: No pedal edema. No calf tenderness. NEUROLOGICAL: Unable to completely assess as patient is intubated and sedated on paralytics - Labs CBC & Chem 7: 09/16/20 04:47 09/16/20 04:47 Labs: Abnormal Lab Results - Last 24 Hours (Table) 09/15/20 09/16/20 09/16/20 Range/Units 03:45 04:28 04:47 WBC 19.5 H (3.8-10.6) k/uL RBC 4.19 L (4.30-5.90) m/uL Plt Count 92 L (150-450) k/uL ABG pH 7.28 L (7.35-7.45) ABG pCO2 68 H (35-45) mmHg ABG pO2 77 L (83-108) mmHg ABG HCO3 32 H (21-25) mmol/L ABG Total CO2 34 H (19-24) mmol/L Potassium (3.5-5.1) mmol/L Carbon Dioxide (22-30) mmol/L BUN (9-20) mg/dL Glucose (74-99) mg/dL Ferritin 1632.9 H (22.0-322.0) ng/mL Lactate Dehydrogenase (313-618) U/L C-Reactive Protein (<1.0) mg/dL 09/16/20 Range/Units 04:47 WBC (3.8-10.6) k/uL RBC (4.30-5.90) m/uL Plt Count (150-450) k/uL ABG pH (7.35-7.45) ABG pCO2 (35-45) mmHg ABG pO2 (83-108) mmHg ABG HCO3 (21-25) mmol/L ABG Total CO2 (19-24) mmol/L Potassium 5.4 H (3.5-5.1) mmol/L Carbon Dioxide 32 H (22-30) mmol/L BUN 55 H (9-20) mg/dL Glucose 182 H (74-99) mg/dL Ferritin (22.0-322.0) ng/mL Lactate Dehydrogenase 2081 H (313-618) U/L C-Reactive Protein 1.5 H (<1.0) mg/dL Assessment and Plan Assessment: -Acute hypoxic respiratory failure: Secondary to Covid 19 -Lactic acidosis, resolved -Hypertension -Ruled out PE -Elevated troponins secondary to type II VA secondary to hypoxemia -History of gastroesophageal reflux disease -GI prophylaxis with Pepcid -DVT prophylaxis with Lovenox -Full code Recommendations and discussion: Recommend to continue with current medications, management, and symptomatic treatment. Continues on Decadron along with Lovenox and vitamin and zinc supplements. Patient continues to be intubated and sedated with paralytics and maintained on Nimbex. Patient has recently received Tocilizumab and 1 unit of convalescent plasma as he was outside of the window for Remdesivir. Pulmonary following closely. Due to multiple complex medical issues, prognosis remains ex tremely guarded. Further recommendations to follow.
[2020-09-16] MEDS: SODIUM CHLORIDE 0.9% 1,000 ML IV SCH (18:45)
[2020-09-16 18:56] LABS: Ferritin 1607.4 ng/mL (22.0-322.0)
[2020-09-17] MEDS: methylPREDNISolone SOD SUCCI 125 MG/2 ML VIAL IV SCH ×4 (00:04→18:04)
[2020-09-17] MEDS: fentaNYL (PF). 1,000 MCG in SODIUM CHLORIDE 0.9% 80 ML IV SCH ×2 (00:15→20:00)
[2020-09-17 04:15] LABS: ABG Base Excess 4.2 mmol/L; ABG HCO3 31 mmol/L (21-25); ABG Oxygen Saturation 91.4 % (94-97); ABG PCO2 69 mmHg (35-45); ABG PH 7.26 (7.35-7.45); ABG PO2 64 mmHg (83-108); ABG TCO2 33 mmol/L (19-24); Allen Test Performed? Yes
[2020-09-17 06:07] LABS: Calcium 8.2 mg/dL (8.4-10.2); Potassium 5.3 mmol/L (3.5-5.1)
[2020-09-17] MEDS: SODIUM CHLORIDE 0.9% 1,000 ML IV SCH ×2 (06:23→14:05)
--- NOTE | 2020-09-17 07:14 | XR ---
EXAMINATION TYPE: XR chest 1V portable DATE OF EXAM: 09/17/2020 HISTORY: Shortness of breath. COMPARISON: 09/16/2020 TECHNIQUE: Single view of the chest is submitted. FINDINGS: Endotracheal tube and NG tube are unchanged in position. Left-sided PICC line also in place. Patchy perihilar and basilar infiltrates persist with slight improvement suggested at the right lung base. The heart is stable. Hilar and mediastinal structures are within normal limits. Degenerative changes are seen of the dorsal spine. IMPRESSION: 1. Patchy perihilar and basilar infiltrates persist with slight improvement suggested at the right l corinne base.
[2020-09-17] MEDS: ALBUTEROL HFA INHALER INHALATION SCH ×4 (08:21→19:55)
[2020-09-17] MEDS: ENOXAPARIN 40 MG/0.4 ML SYRINGE SQ SCH (08:45)
[2020-09-17] MEDS: ASCORBIC ACID 500 MG TAB PO SCH ×2 (08:45→20:00)
[2020-09-17] MEDS: METOPROLOL TARTRATE 12.5 MG TAB PO SCH ×2 (08:45→20:00)
[2020-09-17] MEDS: ATORVASTATIN 80 MG TAB PO SCH (08:45)
[2020-09-17] MEDS: CHOLECALCIFEROL 25 MCG (1000 IU) TABLET PO SCH (08:45)
[2020-09-17] MEDS: ASPIRIN 81 MG PO SCH (08:45)
[2020-09-17] MEDS: amLODIPine 10 MG TAB PO SCH (08:45)
[2020-09-17] MEDS: FAMOTIDINE 20 MG TAB PO SCH ×2 (08:45→20:00)
[2020-09-17] MEDS: allopurinoL 300 MG TAB PO SCH (08:45)
[2020-09-17] MEDS: CHLORHEXIDINE GLUCONATE 15 ML CUP MUCOUS MEM SCH ×2 (08:45→20:00)
[2020-09-17] MEDS: ZINC SULFATE 220 MG CAP PO SCH (08:45)
--- NOTE | 2020-09-17 11:57 | P.PN ---
Subjective Progress Note Date: 09/17/20 Principal diagnosis: Acute hypoxic respiratory failure secondary to COVID-19 pneumonia and ARDS. 54-year-old white male patient who is an ex smoker, carries [id number] smoking history quit smoking 1 year ago in May, history of hypertension and gout who sees Dr. Contreras, presented to the emergency department on 08/02/2020 with complaints of worsening shortness of breath, cough, and patient was diagnosed with Covid 19 one week ago, was tested at [facility] per Dr. Contreras's order. 2 weeks ago he had symptoms of flulike illness, sore throat, shortness of breath, weakness, muscle aches which progressively became worse, and patient developed worsening shortness of breath and had difficulty breathing and ambulating at home. He was placed on Decadron [address] Contreras and he has 1-1/2 days worth left of it. Chest x-ray in the emergency department showed bilateral interstitial pneumonia. White blood cell count was 33.1, d-dimer was greater than 35.2, CO2 is 16, the rest of electrolytes were unremarkable, B1 is 35 creatinine is 1.04, plasma lactic acid is 4.5, patient was given IV fluids and lactic acid came down to 1.8, total bilirubin was 1.6, AST is 107, ALT is 48, alkaline phosphatase is 114, LDH is 5924, first troponin was 4.190, and the second one went up to 6.960. CRP is 180.3, pro-calcitonin level is 0.33, urinalysis showed 1+ protein, but no definite sign of infection, pulse ox is 86 on room air, patient has significant shortness of breath, and was placed on BiPAP support, currently with pressures of 12/6, and FiO2 of 100% on which he remains this morning, he is afebrile, hemodynamically he is stable, she was started on IV Decadron, we'll start him on intermediate dose of Lovenox 50 mg every 12 hours, CTA chest shows no evidence of pulmonary embolism, and extensive pulmonary infiltrates that are mostly interstitial consistent with severe interstitial pneumonia. Progress note dated 09/04/2020. 54-year-old male, admitted with a diagnosis of COVID 19 pneumonitis. Currently, he is on BiPAP at 12/6 and 90%. FiO2 will be dropped down to 80%. In addition, he is getting saline at 75 mL an hour. The patient's doing better today. He states that he feels better. He still short of breath with activity. I did tell him today to make sure he moves around in bed when he is laying in bed. White count 29.3, hemoglobin 14.6, hematocrit 42.7, platelet count 140,000. D- dimer greater than 34.10. Sodium 136, potassium 5.1, chlorides 105, CO2 25, anion gap 6, BUN 39, creatinine 0.9. LDH is 3965. C-reactive protein 143. Chest x-ray shows a worsening pattern of bilateral airspace disease. Progress note dated 09/05/2020. 54-year-old male, admitted with a diagnosis of COVID 19 pneumonitis. He remains on BiPAP with an FiO2 of 80%. Settings included an IPAP 12, EPAP 6. The patient states that he feels a bit better. He is getting saline at 75 mL an hour. He feels like he is breathing is improved. He does know to move about in bed. No new laboratory data today. His most recent chest x-ray was from yesterday and was reviewed. The patient's on appropriate medications. Progress note dated 09/06/2020. 54-year-old male, seen again today. The patient is on BiPAP, settings of IPAP 12, EPAP 6, and 90%. He is also getting saline at 75 mL an hour. Was admitted with a diagnosis of acute hypoxemic respiratory failure secondary to COVID 19 pneumonia. The patient feels about the same. No better or no worse. He will have a chest x-ray tomorrow. Labs are reviewed. White count 19.3, hemoglobin 15, hematocrit 43.9, and platelet count 92,000. Sodium 135, potassium 4.9, chlorides 109, CO2 20, anion gap 6, BUN 34, and creatinine 0.92. There is no recent chest x-ray to review. The patient is seen today 09/07/2020 in follow-up on the selective care unit. He is currently resting comfortably in bed. States he is doing a little better today compared to yesterday. He is still requiring BiPAP support 12/6 and 100% FiO2. Chest x-ray reveals stable bilateral lung infiltrates. Blood glucose 163. He remains on bronchodilators, vitamin supplements, dexamethasone, Lovenox. 0.9 normal saline at 75 ML's per hour. On 09/08/2020, the patient is being seen in follow-up on the [facility] units. The patient is a 54-year-old male patient with Covid 19 related pneumonia and the patient has diffuse stable by the pulmonary infiltrates. The patient remains on Decadron. The patient is also on Lovenox 40 mg subcu every 12 hours. The patient is also requiring BiPAP for respiratory support at a pressure of 12/6 cm of water and FiO2 of 100%. The patient is able to generate a tidal volume of 800 mL of the respiratory rate of 24 and a minute ventilation of 23 L. The patient Has elevated inflammatory markers and the last time the markers were checked were on 09/04/2020 with an LDH of 3965 and a CRP of 142. Levels will need to be rechecked. The d-dimer was above 34. The LDH level remains elevated at 3911. D-dimer is 24.6. The patient is also on IV fluids with normal saline at the rate of 75 mL an hour. The patient is on Decadron 6 because IV every 24 hours. The patient is also on Lovenox 40 mg subcu every 12 hours. His current BMI 31.5. On 09/09/2020, the patient is being seen for a follow-up. The patient continues to be on a BiPAP at a pressure of 12/6 cm of water with an FiO2 of 100%. The patient is awake and he requires assistance to be moved around. His tidal volume is in the order of 800 mL which is comparable to yesterday. A repeat chest x-ray was done and it shows some limited improvement in the bilateral pulmonary infiltrates. the patient remains on Decadron and the dose is currently at 60 mg IV every 12 hours. inflammatory markers are elevated with an LDH level of 3 911 and the CRP is 22.5. His d-dimer is still elevated at 24.6 and the patient is on Lovenox at a dose of 40 mg subcu every 12 hours.. On his problem continue to be the patient's hypoxemia, Covid 19 related pneumonia and global weakness. Unfortunately, the patient is unable to eat as the patient desaturates significantly was taken off the BiPAP. 09/10/2020 the patient remains BiPAP dependent at the pressure of 12/6 cm of water. His FiO2 is still 100%. He was still able to generate adequate tidal volumes while being on a BiPAP. He has had a PICC line yesterday as the patient was not meeting his caloric requirements and I was also contemplating the possibility of TPN. His chest x-ray remains unchanged with diffuse bilateral infiltrates consistent with Covid 19 related pneumonia. His blood work is showing a d-dimer of 24 from 2 days ago. Electrolytes are normal, and no new inflammatory markers. The current pulse ox is 92% on a BiPAP and the patient remains on Decadron 6 mg IV every 12 hours. 09/11/2020, the patient remains on a BiPAP at a pressure of 12/6 and FiO2 of 100%. He is quite lethargic. He is in mild degree of respiratory distress even at rest while on the BiPAP. Current pulse ox is 89%. A PICC line was inserted yesterday and the patient was also started on TPN for nutritional support knowing that he was able to eat and he was not meeting his caloric requirements. His d-dimer is 15. The patient is on Lovenox 50 mg subcu every 12 hours. The patient is also receiving Decadron 6 mg IV 12 hours. Current pulse ox is around 89%. No major changes condition since yesterday. No other new labs otherwise. His resting in bed comfortably. He is generating tidal volumes above >600cc with respiratory rate in the mid 20s. He had no signs of any fluid overload. Mentation is preserved. Looks lethargic. He is able to answer questions and following commands. No other significant issues otherwise for now. I will today's condition is essentially stable since yesterday. 09/12/2020 the patient remains on BiPAP 12/6 cm of water with an FiO2 of 100%. Condition is essentially the same and unchanged compared to yesterday. The patient is currently on a pulse ox of 94% on above-mentioned BiPAP setting. He remains on Decadron 6 mg IV every 12 hours. He also is on Lovenox 50 mg subcu every 12 hours. He has an LDH level of 5040 at a CRP of 8.2. His inflammatory markers were obtained yesterday and they were quite elevated. He is still able to generate tidal volumes above 500 and his respiratory rate currently is in the 00s for now. Chest x-ray is consistent with diffuse bilateral pulmonary infiltrates. He has a PICC line in his left upper extremity and the patient is receiving TPN for nutritional support. As mentioned, he remains weak and lethargic. He is arousable and follows commands and answering questions. 09/13/2020, the patient got transferred to the intensive care unit where the patient got intubated and placed on a mechanical ventilator. Note that the patient was maintaining relatively fine on the BiPAP and ultimately desaturates., Became more short of breath and unresponsive in the blood. Showed significant hypoxemia and he had to come in to the ICU where he was intubated and placed on a mechanical ventilator. At this point and he is sedated with propofol running at 50 mcg/kg per minute and the patient is also paralyzed with Nimbex at 3 mcg/kg per minute. He is currently on assist control mode at the rate of 32 with a tidal volume of 400 and FiO2 of 1% with a PEEP of 15. The blood gases post intubation showed a pH of 7.22 and a pCO2 of 61 and pO2 of 89. His chest x-ray showing adequate positioning of ET tube. He has diffuse bilateral pulmonary infiltrates consistent with Covid 19 related p neumonia. Peak airway pressure 38. Static pressures 34. He is well rested and paralyzed for now. His BP currently is running at 156/59 and the patient was quite hypertensive prior to his intubation. His blood pressure came up to 182/110 and currently it's more stable. Labs are still pending for now. Meanwhile, the patient remains on Decadron 6 mg IV every 12 hours. Is also on Lovenox 40 mg subcu twice a day. He was receiving TPN for nutritional support as the patient was unable to take any form of oral intake as he was very much BiPAP dependent. TPN will be discontinued and the patient will be transitioned to enteral feeding note that he is currently intubated on a mechanical venti lator. A central line was also inserted. IV fluids are running at the rate of 20 mL an hour of normal saline. TPN Is currently running at 90 mL an hour. 09/14/2020, the patient is intubated on a mechanical ventilator in the intensive care unit. The patient currently is sedated and paralyzed. Propofol is running at 40 mcg/kg per minute and the Nimbex is running at 1.8 mcg/kg per minute. He is adequately sedated and paralyzed. He is still assist-control mode of mechanical ventilation at the rate of 32 with a tidal volume of 400 and FiO2 of 100% and a PEEP of 15. His blood gases from today showed a pH of 7.29 and pCO2 of 62 and pO2 of 86. We are allowing permissive hypercapnia. The peak and static pressures today are 14 and 34 respectively. His chest x-ray from today showing diffuse bilateral pulmonary infiltrates more so in the lower lobes and there is extensive consolidation of the lower lobes bilaterally. ET tube is at the level of the aortic knob. NG tube is in place. The patient remains on Decadron and currently is at a dose of 6 mg IV every 12 hours. In terms of his blood work, his inflammatory markers show a drop in the LDH level which is down to 294 and a CRP level is down to 5.2. D-dimer from a few days ago was 15.6 and the patient remains on Lovenox at a dose of 40 mg subcu every 12 hours. His TPN has been discontinued and the patient was switched enteral feeding and the patient is currently on vital high protein at the rate of 20 mL an hour which is at goal for now. IV fluids running at 20 mL an hour. He is hemodynamically stable. His overall fluid balance has been +1.6 L over the past 24 hours. Note that this patient was intubated yesterday after failing BiPAP for several days. He was intubated on 08/12/2020. Family is aware. Patient was reevaluated today on 09/15/2020, remains intubated and mechanically ventilated. Patient is presently on assist control rate of 52 tidal volume is 400 FiO2 at 90% PEEP is 15 ABG showed a pO2 of 77 pCO2 of 64 pH of 7.30. His peak airway pressure is 47 static pressure is 43. Attempted to adjust the PEEP higher, however he static pressure was getting much higher. Hence The PEEP at 15. And I adjusted the flow rate down to 60. He is on multiple drips including Nimbex at 1.5 mcg/kg/minute. he is on propofol at 40 mcg/kg per minute. Patient remains on permissive hypercapnia with a pCO2 of 64 pH of 7.30. Today considering the patient is on Nimbex I added fentanyl and 0.25 mcg/kg/h. And I switch his Decadron to Solu-Medrol at 60 mg IV push every 6 hours. Patient was intubated on 09/13 has been in the ICU since 09/13 he was actually admitted on 09/02 feeding gomez he is on HP20 mL per hour. Patient is sedated and paralyzed. Chest x-ray continues to show bilateral patchy infiltrates. Not much of a change noted. Patient was reevaluated today on 09/16/2020, remains in the ICU, intubated and mechanically ventilated. He is now on ventilator settings assist control rate of 3 to tell volume is 400 FiO2 80% and PEEP of 16. ABG showed a pO2 of 77 pCO2 of 68 pH of 7.28. Patient remains on propofol at 40, Nimbex at 1.2 fentanyl 0.5, IV fluid at KVO. FiO2 was decreased today from on the percent to 80%, and increase the flow rate to 65 L/m. Chest x-ray is showing no significant change. Patient remains fully sedated and paralyzed. He is on tube feeding using vital HP at 20 mL per hour. Electrolytes were reviewed potassium is 5.4. BUN is 55 creatinine 1.1, hence increase his IV fluid rate to 100 mL per hour. Bit of leukocytosis noted today, but improved compared to yesterday WBC count is 19.5 hemoglobin is 13.4. LDH continues on the rise to 081, and C-reactive protein is better at 1.5. Patient was reevaluated today on 09/17/2020, remains in the ICU, intubated mechanically ventilated, sedated, paralyzed, his ventilator settings are assist control rate of 32, tidal volume is 400 FiO2 65% and PEEP remains at 16. Peak airway pressure is 37, static pressures 27, chest x-ray continues to show by lateral patchy infiltrates consistent with COVID-19 pneumonia. ABG showed a pO2 of 64 pCO2 of 69 pH of 7.26. Hence his tidal volume was increased up to 420 7400. Patient will remain sedated. No plans to wean or extubated anytime soon. Patient remains on propofol at 40 Nimbex at 2 fentanyl 0.5 IV fluid at 100 mL per hour, he is on tube feeding 37/37 vital HP. Electrolytes are normal BUN is 58 creatinine is 1.08. Improving. LDH was 2080 yesterday. And C-reactive protein 1.5 Objective - Vital Signs Vital signs: Vital Signs Temp 98.5 F 09/17/20 08:00 Pulse 63 09/17/20 11:00 Resp 32 H 09/17/20 11:00 BP 140/72 09/16/20 22:00 Pulse Ox 88 L 09/17/20 11:00 Intake & Output 09/16/20 09/17/20 09/17/20 18:59 06:59 18:59 Intake Total 2720.890 2098.337 793 Output Total 1070 1155 575 Balance 1650.890 943.337 218 Weight 90.4 kg 91.8 kg Intake: IV 1953 1236 515 Pressure bag 33 36 15 Sodium Chloride 0.9% 1, 1920 1200 500 000 ml @ 100 mls/hr IV . Q10H [facility] Rx#:[id number] Intake, IV Titration 255.890 381.337 100 Amount Cisatracurium 200 mg In 97.951 Sodium Chloride 0.9% 180 ml @ 1 MCG/KG/MIN 5.61 mls/hr IV .Q24H [facility] Rx#: [id number] fentaNYL (PF). 1,000 mcg 100 In Sodium Chloride 0.9% 80 ml @ Per Protocol IV . Q0M [facility] Rx#:[id number] propofoL 1,000 mg In 157.939 281.337 100 Empty Bag 1 bag @ Titrate IV .Q0M [facility] Rx#: [id number] Tube Feeding 322 481 148 Other 190 30 Output: Urine 1070 1155 575 Stool 0 0 0 Other: Voiding Method Indwelling Catheter Indwelling Catheter Indwelling Catheter ABP, PAP, CO, CI - Last Documented Arterial Blood Pressure 135/54 - Exam GENERAL EXAM: Revealed 54-year-old male intubated and mechanically ventilated, sedated and paralyzed, in no distress. HEAD: Normocephalic. Atraumatic, endotracheal tube and orogastric tube is intact. EYES: PERRLA, EOMI, nonicteric.. NOSE: Clear with pink turbinates. THROAT: No erythema or exudates. NECK: No masses, no JVD. CHEST: No chest wall deformity. LUNGS: Records and rhonchi noted bilaterally. CVS: S1 and S2 normal with no audible murmur, regular rhythm. ABDOMEN: No hepatosplenomegaly, normal bowel sounds, no guarding or rigidity. Musculoskeletal: No deformities. SKIN: No rashes CENTRAL NERVOUS SYSTEM: Not assess EXTREMITIES: No clubbing edema or cyanosis. Psychiatric: Could not assess. - Labs CBC & Chem 7: 09/16/20 04:47 09/17/20 05:30 Labs: Abnormal Lab Results - Last 24 Hours (Table) 09/16/20 09/17/20 09/17/20 Range/Units 04:47 04:10 05:30 D-Dimer (<0.60) mg/L FEU ABG pH 7.26 L (7.35-7.45) ABG pCO2 69 H (35-45) mmHg ABG pO2 64 L (83-108) mmHg ABG HCO3 31 H (21-25) mmol/L ABG Total CO2 33 H (19-24) mmol/L ABG O2 Saturation 91.4 L (94-97) % Potassium 5.3 H (3.5-5.1) mmol/L Chloride 111 H (98-107) mmol/L Carbon Dioxide 32 H (22-30) mmol/L BUN 58 H (9-20) mg/dL Glucose 222 H (74-99) mg/dL Calcium 8.2 L (8.4-10.2) mg/dL Ferritin 1607.4 H (22.0-322.0) ng/mL 09/17/20 Range/Units 05:30 D-Dimer 2.98 H (<0.60) mg/L FEU ABG pH (7.35-7.45) ABG pCO2 (35-45) mmHg ABG pO2 (83-108) mmHg ABG HCO3 (21-25) mmol/L ABG Total CO2 (19-24) mmol/L ABG O2 Saturation (94-97) % Potassium (3.5-5.1) mmol/L Chloride (98-107) mmol/L Carbon Dioxide (22-30) mmol/L BUN (9-20) mg/dL Glucose (74-99) mg/dL Calcium (8.4-10.2) mg/dL Ferritin (22.0-322.0) ng/mL Assessment and Plan Assessment: Impression: Acute hypoxic respiratory failure secondary to acute COVID-19 pneumonia with ARDS. Patient received toci, and convalescent plasma, remains on the COVID-19 cocktail. Remains on Lovenox 40 mg subcu daily instead of every 12 hours.. Patient was intubated on 09/12 not ready for any form of weaning. Continues to have high PEEP, PEEP remains at 16, FiO2 was cut down to 65%. Elevated inflammatory markers secondary to above Benign essential hypertension Former smoker. Recommendation: Continue ventilatory support, minimal change in the ventilator settings as noted above. Continue nutritional support. Change Solu-Medrol. Continue Lovenox at 40 mg subcu daily Continue the COVID-19 cocktail. Patient received convalescent plasma and toci Continue to monitor inflammatory markers. Continue GI and DVT prophylaxis Patient remains critically ill, critical care time is over 30 minutes. Time with Patient: Greater than 30
--- NOTE | 2020-09-17 13:23 | P.PN ---
Subjective Progress Note Date: 09/17/20 This is a 54-year-old male was recently admitted with shortness of breath and cough episodes of diarrhea nausea and generalized body aches and fevers and was recently diagnosed with COVID-19 one week prior to hospitalization. Patient continues to be intubated and sedated on mechanical ventilator and being closely monitored in the ICU. Pulmonary following closely. Chest x-ray today shows stable patchy mid and lower lung infiltrates persist without significant change. D-dimer slightly trending down at 4.91 and white blood count is 19.5, hemoglobin is stable at 13.4, sodium is 140 with a potassium of 5.4 and current creatinine is 1.21. LDH elevated at 2081 and CRP slowly trending down at 1.5. Patient continues on mechanical vent and FiO2 titrated down to 65. Patient continues on Nimbex along with fentanyl and propofol for sedation. Patient to continue on IV steroids along with Lovenox and vitamin and zinc supplements. 09/17/2020 Patient is seen in follow-up this morning continues to be closely monitored in the ICU. Patient remains on mechanical ventilation and is currently sedated. Chest x-ray today shows patchy perihilar and basilar infiltrates persist with slight improvement suggested in the right lung base. D-dimer slowly trending down at 2.98 BMP within normal limits creatinine slightly improved at 1.08. Patient is maintained on vitamin and zinc supplements along with Lovenox and will continue with IV Solu-Medrol 60 mg every 6 hours. Pulmonary following closely. Lovenox has been adjusted to 40 mg subcutaneous daily. Review of systems: Unable to obtain as patient is currently intubated and sedated Active Medications Acetaminophen (Acetaminophen Tab 325 Mg Tab) 650 mg PO Q6HR PRN PRN Reason: Fever and/ or Pain Last Admin: 09/16/20 11:48 Dose: 650 mg Documented by: Albuterol Sulfate (Albuterol Hfa Inhaler) 2 puff INHALATION RT-QID PRN PRN Reason: Shortness Of Breath Last Admin: 09/04/20 17:46 Dose: 2 puff Documented by: Albuterol Sulfate (Albuterol Hfa Inhaler) 2 puff INHALATION RT-QID [facility] Last Admin: 09/17/20 11:19 Dose: 2 puff Documented by: Allopurinol (Allopurinol 300 Mg Tab) 300 mg PO DAILY [facility] Last Admin: 09/17/20 08:45 Dose: 300 mg Documented by: Amlodipine Besylate (Amlodipine 10 Mg Tab) 10 mg PO DAILY [facility] Last Admin: 09/17/20 08:45 Dose: 10 mg Documented by: Ascorbic Acid (Ascorbic Acid 500 Mg Tab) 500 mg PO BID [facility] Last Admin: 09/17/20 08:45 Dose: 500 mg Documented by: Aspirin (Aspirin 81 Mg) 81 mg PO DAILY [facility] Last Admin: 09/17/20 08:45 Dose: 81 mg Documented by: Atorvastatin Calcium (Atorvastatin 80 Mg Tab) 80 mg PO DAILY [facility] Last Admin: 09/17/20 08:45 Dose: 80 mg Documented by: Benzonatate (Benzonatate 100 Mg Cap) 200 mg PO TID PRN PRN Reason: Cough Last Admin: 09/12/20 17:56 Dose: 200 mg Documented by: Chlorhexidine Gluconate (Chlorhexidine Gluconate 15 Ml Cup) 15 ml MUCOUS MEM BID [facility] Last Admin: 09/17/20 08:45 Dose: 15 ml Documented by: Cholecalciferol (Cholecalciferol 25 Mcg (1000 Iu) Tablet) 125 mcg PO DAILY [facility] Last Admin: 09/17/20 08:45 Dose: 125 mcg Documented by: Enoxaparin Sodium (Enoxaparin 40 Mg/0.4 Ml Syringe) 40 mg SQ DAILY [facility] Famotidine (Famotidine 20 Mg Tab) 20 mg PO BID [facility] Last Admin: 09/17/20 08:45 Dose: 20 mg Documented by: Guaifenesin (Guaifenesin Syrup 100mg/5ml 200 Mg/10 Ml Cup) 200 mg PO Q6H PRN PRN Reason: Cough Last Admin: 09/12/20 23:40 Dose: 200 mg Documented by: Guaifenesin/Codeine Phosphate (Guaifenesin-Coden 100-10mg/5ml 10 Ml Cup) 10 ml PO Q8H PRN PRN Reason: Cough Last Admin: 09/12/20 08:23 Dose: 10 ml Documented by: Heparin Sodium (Porcine) (Heparin Sodium 1,000 Un/Ml (10ml Vl)) 0 unit IV PER PROTOCOL PRN; Protocol PRN Reason: Low PTT Last Admin: 09/03/20 17:35 Dose: 4,900 unit Documented by: Sodium Chloride (Saline 0.9%) 1,000 mls @ 100 mls/hr IV .Q10H [facility] Last Admin: 09/17/20 06:23 Dose: 100 mls/hr Documented by: Propofol 1,000 mg/ IV Solution 100 mls @ 0 mls/hr IV .Q0M [facility]; Protocol Last Admin: 09/17/20 11:04 Dose: 40 mcg/kg/min, 21.936 mls/hr Documented by: Cisatracurium Besylate 200 mg/ (Sodium Chloride) 200 mls @ 5.61 mls/hr IV .Q24H [facility]; Protocol Last Admin: 09/16/20 10:09 Dose: 1.2 mcg/kg/min, 6.732 mls/hr Documented by: Fentanyl Citrate 1,000 mcg/ (Sodium Chloride) 100 mls @ 0 mls/hr IV .Q0M [facility]; Protocol Last Admin: 09/17/20 00:15 Dose: 0.5 mcg/kg/hr, 4.62 mls/hr Documented by: Methylprednisolone Sodium Succinate (Methylprednisolone Sod Succi 125 Mg/2 Ml Vial) 60 mg IV Q6HR [facility] Last Admin: 09/17/20 11:46 Dose: 60 mg Documented by: Metoprolol Tartrate (Metoprolol Tartrate 12.5 Mg Tab) 12.5 mg PO BID [facility] Last Admin: 09/17/20 08:45 Dose: 12.5 mg Documented by: Naloxone HCl (Naloxone 0.4 Mg/Ml 1 Ml Vial) 0.2 mg IV Q2M PRN PRN Reason: Opioid Reversal Nitroglycerin (Nitroglycerin Sl Tabs 0.4 Mg Tab) 0.4 mg SUBLINGUAL Q5M PRN PRN Reason: Chest Pain Last Admin: 09/07/20 03:35 Dose: 0.4 mg Documented by: Promethazine HCl (Promethazine Hcl 6.25 Mg/5 Ml Cup) 12.5 mg PO QID PRN PRN Reason: Cough Last Admin: 09/06/20 02:07 Dose: 12.5 mg Documented by: Zinc Sulfate (Zinc Sulfate 220 Mg Cap) 220 mg PO DAILY [facility] Last Admin: 09/17/20 08:45 Dose: 220 mg Documented by: Objective - Vital Signs Vital signs: Vital Signs Temp 98.5 F 09/17/20 08:00 Pulse 71 09/17/20 08:00 Resp 25 H 09/17/20 08:00 BP 140/72 09/16/20 22:00 Pulse Ox 89 L 09/17/20 08:00 Intake & Output 09/16/20 09/17/20 09/17/20 18:59 06:59 18:59 Intake Total 2720.890 2098.337 310 Output Total 1070 1155 225 Balance 1650.890 943.337 85 Weight 90.4 kg 91.8 kg Intake: IV 1953 1236 206 Pressure bag 33 36 6 Sodium Chloride 0.9% 1, 1920 1200 200 000 ml @ 100 mls/hr IV . Q10H [facility] Rx#:[id number] Intake, IV Titration 255.890 381.337 Amount Cisatracurium 200 mg In 97.951 Sodium Chloride 0.9% 180 ml @ 1 MCG/KG/MIN 5.61 mls/hr IV .Q24H [facility] Rx#: [id number] fentaNYL (PF). 1,000 mcg 100 In Sodium Chloride 0.9% 80 ml @ Per Protocol IV . Q0M [facility] Rx#:[id number] propofoL 1,000 mg In 157.939 281.337 Empty Bag 1 bag @ Titrate IV .Q0M [facility] Rx#: [id number] Tube Feeding 322 481 74 Other 190 30 Output: Urine 1070 1155 225 Stool 0 0 0 Other: Voiding Method Indwelling Catheter Indwelling Catheter Indwelling Catheter ABP, PAP, CO, CI - Last Documented Arterial Blood Pressure 147/59 - Exam Gen: This is a 54-year-old male currently intubated and sedated. Temp is 98.5F, pulse is 71, respirations are 25, blood pressure is 147/59, oxygen saturation is 89% with an FiO2 of 65 HEENT: Head is atraumatic, normocephalic. Pupils equal, round. Sclerae is anicteric. NECK: Supple. No JVD. No lymphadenopathy. No thyromegaly. LUNGS: diminished breath sounds bilaterally with some scattered rhonchi and crackles noted. Tachypneic. No intercostal retractions. HEART: S1, S2 are muffled ABDOMEN: Soft. Bowel sounds are present. No masses. No tenderness. EXTREMITIES: No pedal edema. No calf tenderness. NEUROLOGICAL: Unable to completely assess as patient is intubated and sedated on paralytics - Labs CBC & Chem 7: 09/16/20 04:47 09/17/20 05:30 Labs: Abnormal Lab Results - Last 24 Hours (Table) 09/16/20 09/16/20 09/17/20 Range/Units 04:47 10:25 04:10 D-Dimer 4.91 H (<0.60) mg/L FEU ABG pH 7.26 L (7.35-7.45) ABG pCO2 69 H (35-45) mmHg ABG pO2 64 L (83-108) mmHg ABG HCO3 31 H (21-25) mmol/L ABG Total CO2 33 H (19-24) mmol/L ABG O2 Saturation 91.4 L (94-97) % Potassium (3.5-5.1) mmol/L Chloride (98-107) mmol/L Carbon Dioxide (22-30) mmol/L BUN (9-20) mg/dL Glucose (74-99) mg/dL Calcium (8.4-10.2) mg/dL Ferritin 1607.4 H (22.0-322.0) ng/mL 09/17/20 09/17/20 Range/Units 05:30 05:30 D-Dimer 2.98 H (<0.60) mg/L FEU ABG pH (7.35-7.45) ABG pCO2 (35-45) mmHg ABG pO2 (83-108) mmHg ABG HCO3 (21-25) mmol/L ABG Total CO2 (19-24) mmol/L ABG O2 Saturation (94-97) % Potassium 5.3 H (3.5-5.1) mmol/L Chloride 111 H (98-107) mmol/L Carbon Dioxide 32 H (22-30) mmol/L BUN 58 H (9-20) mg/dL Glucose 222 H (74-99) mg/dL Calcium 8.2 L (8.4-10.2) mg/dL Ferritin (22.0-322.0) ng/mL Assessment and Plan Assessment: -Acute hypoxic respiratory failure: Secondary to Covid 19 -Lactic acidosis, resolved -Hypertension -Ruled out PE -Elevated troponins secondary to type II MS secondary to hypoxemia -History of gastroesophageal reflux disease -GI prophylaxis with Pepcid -DVT prophylaxis with Lovenox -Full code Recommendations and discussion: Recommend to continue with current medications, management, and symptomatic treatment. Continues IV Solu-Medrol along with Lovenox and vitamin and zinc supplements. Patient continues to be intubated and sedated with paralytics and maintained on Nimbex. Patient has recently received Tocilizumab and 1 unit of convalescent plasma as he was outside of the window for Remdesivir. Chest x-ray today shows patchy perihilar and basilar infiltrates persist with slight improvement at the right lung base. Pulmonary following closely. Due to multiple complex medical issues, prognosis remains extremely guarded. Further recommendations to follow.
[2020-09-17 15:33] LABS: Glucose,Whole Blood 254 mg/dL (75-99)
[2020-09-17 18:05] LABS: Glucose,Whole Blood 206 mg/dL (75-99)
[2020-09-17] MEDS: INSULIN ASPART (NovoLOG) 100 UNIT/ML VIAL SQ SCH (18:05)
[2020-09-17] MEDS: CISATRACURIUM 200 MG in SODIUM CHLORIDE 0.9% 180 ML IV SCH (19:02)
[2020-09-17 23:58] LABS: Glucose,Whole Blood 201 mg/dL (75-99)
[2020-09-18] MEDS: INSULIN ASPART (NovoLOG) 100 UNIT/ML VIAL SQ SCH ×4 (00:40→17:47)
[2020-09-18] MEDS: methylPREDNISolone SOD SUCCI 125 MG/2 ML VIAL IV SCH ×5 (00:40→23:42)
[2020-09-18] MEDS: SODIUM CHLORIDE 0.9% 1,000 ML IV SCH ×3 (00:42→16:59)
[2020-09-18 05:21] LABS: ABG Base Excess 5.5 mmol/L; ABG HCO3 32 mmol/L (21-25); ABG Oxygen Saturation 92.8 % (94-97); ABG PCO2 61 mmHg (35-45); ABG PH 7.32 (7.35-7.45); ABG PO2 64 mmHg (83-108); ABG TCO2 34 mmol/L (19-24); Allen Test Performed? Yes
[2020-09-18 05:34] LABS: Basophils % (A) 0 %; Eosinophils % (A) 0 %; HCT 38.3 % (39.0-53.0); Lymphocytes # (A) 0.5 k/uL (1.0-4.8); Lymphocytes % (A) 3 %; MCH 29.9 pg (25.0-35.0); MCHC 31.3 g/dL (31.0-37.0); MCV 95.6 fL (80.0-100.0); Mean Platelet Volume 8.6; Monocytes # (A) 0.8 k/uL (0-1.0); Monocytes % (A) 5 %; Neutrophils # (A) 13.5 k/uL (1.3-7.7); Neutrophils % (A) 90 %; Platelet Count 104 k/uL (150-450); RBC 4.01 m/uL (4.30-5.90); RDW 15.4 % (11.5-15.5); WBC 14.9 k/uL (3.8-10.6)
[2020-09-18 05:50] LABS: African American GFR (CKD) >90 (>60 ml/min/1.73 sqM); Anion Gap 2 mmol/L; Blood Urea Nitrogen 54 mg/dL (9-20); Calcium 8.3 mg/dL (8.4-10.2); Carbon Dioxide 32 mmol/L (22-30); Chloride 112 mmol/L (98-107); Glucose 178 mg/dL (74-99); Non-African American GFR(CKD) 88 (>60 ml/min/1.73 sqM); Potassium 5.6 mmol/L (3.5-5.1); Sodium 146 mmol/L (137-145)
--- NOTE | 2020-09-18 06:18 | XR ---
EXAMINATION TYPE: XR chest 1V portable DATE OF EXAM: 09/18/2020 CLINICAL HISTORY: Difficulty breathing progress study. TECHNIQUE: Single AP portable semiupright view of the chest is obtained. COMPARISON: Chest x-ray from one day earlier and older studies. FINDINGS: Stable endotracheal and orogastric tubes. Stable left-sided PICC line. Bilateral multifocal and confluent reticular opacities redemonstrated. Cardiac silhouette size stable and within normal limits. Osseous structures are intact. IMPRESSION: Bilateral multifocal and confluent and reticular opacities consistent with covid-19 infec tion are redemonstrated. No significant change from one day earlier.
[2020-09-18] MEDS: ALBUTEROL HFA INHALER INHALATION SCH ×4 (07:19→20:07)
[2020-09-18] MEDS ORDERED: SODIUM POLYSTYRENE SULFONATE 15 GM/60 ML BOTTLE PO STA (08:50)
[2020-09-18] MEDS: ATORVASTATIN 80 MG TAB PO SCH (09:54)
[2020-09-18] MEDS: ASCORBIC ACID 500 MG TAB PO SCH ×2 (09:54→20:13)
[2020-09-18] MEDS: amLODIPine 10 MG TAB PO SCH (09:54)
[2020-09-18] MEDS: ASPIRIN 81 MG PO SCH (09:54)
[2020-09-18] MEDS: ZINC SULFATE 220 MG CAP PO SCH (09:54)
[2020-09-18] MEDS: METOPROLOL TARTRATE 12.5 MG TAB PO SCH ×2 (09:54→20:12)
[2020-09-18] MEDS: allopurinoL 300 MG TAB PO SCH (09:54)
[2020-09-18] MEDS: CHOLECALCIFEROL 25 MCG (1000 IU) TABLET PO SCH (09:54)
[2020-09-18] MEDS: FAMOTIDINE 20 MG TAB PO SCH ×2 (09:54→20:12)
[2020-09-18] MEDS: ENOXAPARIN 40 MG/0.4 ML SYRINGE SQ SCH (09:55)
[2020-09-18] MEDS: CHLORHEXIDINE GLUCONATE 15 ML CUP MUCOUS MEM SCH ×2 (09:55→20:13)
[2020-09-18] MEDS: fentaNYL (PF). 1,000 MCG in SODIUM CHLORIDE 0.9% 80 ML IV SCH ×2 (10:34→23:41)
--- NOTE | 2020-09-18 11:24 | P.PN ---
Subjective Progress Note Date: 09/18/20 Principal diagnosis: Acute hypoxic respiratory failure secondary to COVID-19 pneumonia and ARDS. 54-year-old white male patient who is an ex smoker, carries [id number] smoking history quit smoking 1 year ago in May, history of hypertension and gout who sees Dr. Contreras, presented to the emergency department on 08/02/2020 with complaints of worsening shortness of breath, cough, and patient was diagnosed with Covid 19 one week ago, was tested at [facility] per Dr. Contreras's order. 2 weeks ago he had symptoms of flulike illness, sore throat, shortness of breath, weakness, muscle aches which progressively became worse, and patient developed worsening shortness of breath and had difficulty breathing and ambulating at home. He was placed on Decadron [address] Contreras and he has 1-1/2 days worth left of it. Chest x-ray in the emergency department showed bilateral interstitial pneumonia. White blood cell count was 33.1, d-dimer was greater than 35.2, CO2 is 16, the rest of electrolytes were unremarkable, B1 is 35 creatinine is 1.04, plasma lactic acid is 4.5, patient was given IV fluids and lactic acid came down to 1.8, total bilirubin was 1.6, AST is 107, ALT is 48, alkaline phosphatase is 114, LDH is 5924, first troponin was 4.190, and the second one went up to 6.960. CRP is 180.3, pro-calcitonin level is 0.33, urinalysis showed 1+ protein, but no definite sign of infection, pulse ox is 86 on room air, patient has significant shortness of breath, and was placed on BiPAP support, currently with pressures of 12/6, and FiO2 of 100% on which he remains this morning, he is afebrile, hemodynamically he is stable, she was started on IV Decadron, we'll start him on intermediate dose of Lovenox 50 mg every 12 hours, CTA chest shows no evidence of pulmonary embolism, and extensive pulmonary infiltrates that are mostly interstitial consistent with severe interstitial pneumonia. Progress note dated 09/04/2020. 54-year-old male, admitted with a diagnosis of COVID 19 pneumonitis. Currently, he is on BiPAP at 12/6 and 90%. FiO2 will be dropped down to 80%. In addition, he is getting saline at 75 mL an hour. The patient's doing better today. He states that he feels better. He still short of breath with activity. I did tell him today to make sure he moves around in bed when he is laying in bed. White count 29.3, hemoglobin 14.6, hematocrit 42.7, platelet count 140,000. D- dimer greater than 34.10. Sodium 136, potassium 5.1, chlorides 105, CO2 25, anion gap 6, BUN 39, creatinine 0.9. LDH is 3965. C-reactive protein 143. Chest x-ray shows a worsening pattern of bilateral airspace disease. Progress note dated 09/05/2020. 54-year-old male, admitted with a diagnosis of COVID 19 pneumonitis. He remains on BiPAP with an FiO2 of 80%. Settings included an IPAP 12, EPAP 6. The patient states that he feels a bit better. He is getting saline at 75 mL an hour. He feels like he is breathing is improved. He does know to move about in bed. No new laboratory data today. His most recent chest x-ray was from yesterday and was reviewed. The patient's on appropriate medications. Progress note dated 09/06/2020. 54-year-old male, seen again today. The patient is on BiPAP, settings of IPAP 12, EPAP 6, and 90%. He is also getting saline at 75 mL an hour. Was admitted with a diagnosis of acute hypoxemic respiratory failure secondary to COVID 19 pneumonia. The patient feels about the same. No better or no worse. He will have a chest x-ray tomorrow. Labs are reviewed. White count 19.3, hemoglobin 15, hematocrit 43.9, and platelet count 92,000. Sodium 135, potassium 4.9, chlorides 109, CO2 20, anion gap 6, BUN 34, and creatinine 0.92. There is no recent chest x-ray to review. The patient is seen today 09/07/2020 in follow-up on the selective care unit. He is currently resting comfortably in bed. States he is doing a little better today compared to yesterday. He is still requiring BiPAP support 12/6 and 100% FiO2. Chest x-ray reveals stable bilateral lung infiltrates. Blood glucose 163. He remains on bronchodilators, vitamin supplements, dexamethasone, Lovenox. 0.9 normal saline at 75 ML's per hour. On 09/08/2020, the patient is being seen in follow-up on the [facility] units. The patient is a 54-year-old male patient with Covid 19 related pneumonia and the patient has diffuse stable by the pulmonary infiltrates. The patient remains on Decadron. The patient is also on Lovenox 40 mg subcu every 12 hours. The patient is also requiring BiPAP for respiratory support at a pressure of 12/6 cm of water and FiO2 of 100%. The patient is able to generate a tidal volume of 800 mL of the respiratory rate of 24 and a minute ventilation of 23 L. The patient Has elevated inflammatory markers and the last time the markers were checked were on 09/04/2020 with an LDH of 3965 and a CRP of 142. Levels will need to be rechecked. The d-dimer was above 34. The LDH level remains elevated at 3911. D-dimer is 24.6. The patient is also on IV fluids with normal saline at the rate of 75 mL an hour. The patient is on Decadron 6 because IV every 24 hours. The patient is also on Lovenox 40 mg subcu every 12 hours. His current BMI 31.5. On 09/09/2020, the patient is being seen for a follow-up. The patient continues to be on a BiPAP at a pressure of 12/6 cm of water with an FiO2 of 100%. The patient is awake and he requires assistance to be moved around. His tidal volume is in the order of 800 mL which is comparable to yesterday. A repeat chest x-ray was done and it shows some limited improvement in the bilateral pulmonary infiltrates. the patient remains on Decadron and the dose is currently at 60 mg IV every 12 hours. inflammatory markers are elevated with an LDH level of 3 911 and the CRP is 22.5. His d-dimer is still elevated at 24.6 and the patient is on Lovenox at a dose of 40 mg subcu every 12 hours.. On his problem continue to be the patient's hypoxemia, Covid 19 related pneumonia and global weakness. Unfortunately, the patient is unable to eat as the patient desaturates significantly was taken off the BiPAP. 09/10/2020 the patient remains BiPAP dependent at the pressure of 12/6 cm of water. His FiO2 is still 100%. He was still able to generate adequate tidal volumes while being on a BiPAP. He has had a PICC line yesterday as the patient was not meeting his caloric requirements and I was also contemplating the possibility of TPN. His chest x-ray remains unchanged with diffuse bilateral infiltrates consistent with Covid 19 related pneumonia. His blood work is showing a d-dimer of 24 from 2 days ago. Electrolytes are normal, and no new inflammatory markers. The current pulse ox is 92% on a BiPAP and the patient remains on Decadron 6 mg IV every 12 hours. 09/11/2020, the patient remains on a BiPAP at a pressure of 12/6 and FiO2 of 100%. He is quite lethargic. He is in mild degree of respiratory distress even at rest while on the BiPAP. Current pulse ox is 89%. A PICC line was inserted yesterday and the patient was also started on TPN for nutritional support knowing that he was able to eat and he was not meeting his caloric requirements. His d-dimer is 15. The patient is on Lovenox 50 mg subcu every 12 hours. The patient is also receiving Decadron 6 mg IV 12 hours. Current pulse ox is around 89%. No major changes condition since yesterday. No other new labs otherwise. His resting in bed comfortably. He is generating tidal volumes above >600cc with respiratory rate in the mid 20s. He had no signs of any fluid overload. Mentation is preserved. Looks lethargic. He is able to answer questions and following commands. No other significant issues otherwise for now. I will today's condition is essentially stable since yesterday. 09/12/2020 the patient remains on BiPAP 12/6 cm of water with an FiO2 of 100%. Condition is essentially the same and unchanged compared to yesterday. The patient is currently on a pulse ox of 94% on above-mentioned BiPAP setting. He remains on Decadron 6 mg IV every 12 hours. He also is on Lovenox 50 mg subcu every 12 hours. He has an LDH level of 5040 at a CRP of 8.2. His inflammatory markers were obtained yesterday and they were quite elevated. He is still able to generate tidal volumes above 500 and his respiratory rate currently is in the 00s for now. Chest x-ray is consistent with diffuse bilateral pulmonary infiltrates. He has a PICC line in his left upper extremity and the patient is receiving TPN for nutritional support. As mentioned, he remains weak and lethargic. He is arousable and follows commands and answering questions. 09/13/2020, the patient got transferred to the intensive care unit where the patient got intubated and placed on a mechanical ventilator. Note that the patient was maintaining relatively fine on the BiPAP and ultimately desaturates., Became more short of breath and unresponsive in the blood. Showed significant hypoxemia and he had to come in to the ICU where he was intubated and placed on a mechanical ventilator. At this point and he is sedated with propofol running at 50 mcg/kg per minute and the patient is also paralyzed with Nimbex at 3 mcg/kg per minute. He is currently on assist control mode at the rate of 32 with a tidal volume of 400 and FiO2 of 1% with a PEEP of 15. The blood gases post intubation showed a pH of 7.22 and a pCO2 of 61 and pO2 of 89. His chest x-ray showing adequate positioning of ET tube. He has diffuse bilateral pulmonary infiltrates consistent with Covid 19 related p neumonia. Peak airway pressure 38. Static pressures 34. He is well rested and paralyzed for now. His BP currently is running at 156/59 and the patient was quite hypertensive prior to his intubation. His blood pressure came up to 182/110 and currently it's more stable. Labs are still pending for now. Meanwhile, the patient remains on Decadron 6 mg IV every 12 hours. Is also on Lovenox 40 mg subcu twice a day. He was receiving TPN for nutritional support as the patient was unable to take any form of oral intake as he was very much BiPAP dependent. TPN will be discontinued and the patient will be transitioned to enteral feeding note that he is currently intubated on a mechanical venti lator. A central line was also inserted. IV fluids are running at the rate of 20 mL an hour of normal saline. TPN Is currently running at 90 mL an hour. 09/14/2020, the patient is intubated on a mechanical ventilator in the intensive care unit. The patient currently is sedated and paralyzed. Propofol is running at 40 mcg/kg per minute and the Nimbex is running at 1.8 mcg/kg per minute. He is adequately sedated and paralyzed. He is still assist-control mode of mechanical ventilation at the rate of 32 with a tidal volume of 400 and FiO2 of 100% and a PEEP of 15. His blood gases from today showed a pH of 7.29 and pCO2 of 62 and pO2 of 86. We are allowing permissive hypercapnia. The peak and static pressures today are 14 and 34 respectively. His chest x-ray from today showing diffuse bilateral pulmonary infiltrates more so in the lower lobes and there is extensive consolidation of the lower lobes bilaterally. ET tube is at the level of the aortic knob. NG tube is in place. The patient remains on Decadron and currently is at a dose of 6 mg IV every 12 hours. In terms of his blood work, his inflammatory markers show a drop in the LDH level which is down to 294 and a CRP level is down to 5.2. D-dimer from a few days ago was 15.6 and the patient remains on Lovenox at a dose of 40 mg subcu every 12 hours. His TPN has been discontinued and the patient was switched enteral feeding and the patient is currently on vital high protein at the rate of 20 mL an hour which is at goal for now. IV fluids running at 20 mL an hour. He is hemodynamically stable. His overall fluid balance has been +1.6 L over the past 24 hours. Note that this patient was intubated yesterday after failing BiPAP for several days. He was intubated on 08/12/2020. Family is aware. Patient was reevaluated today on 09/15/2020, remains intubated and mechanically ventilated. Patient is presently on assist control rate of 52 tidal volume is 400 FiO2 at 90% PEEP is 15 ABG showed a pO2 of 77 pCO2 of 64 pH of 7.30. His peak airway pressure is 47 static pressure is 43. Attempted to adjust the PEEP higher, however he static pressure was getting much higher. Hence The PEEP at 15. And I adjusted the flow rate down to 60. He is on multiple drips including Nimbex at 1.5 mcg/kg/minute. he is on propofol at 40 mcg/kg per minute. Patient remains on permissive hypercapnia with a pCO2 of 64 pH of 7.30. Today considering the patient is on Nimbex I added fentanyl and 0.25 mcg/kg/h. And I switch his Decadron to Solu-Medrol at 60 mg IV push every 6 hours. Patient was intubated on 09/13 has been in the ICU since 09/13 he was actually admitted on 09/02 feeding gomez he is on HP20 mL per hour. Patient is sedated and paralyzed. Chest x-ray continues to show bilateral patchy infiltrates. Not much of a change noted. Patient was reevaluated today on 09/16/2020, remains in the ICU, intubated and mechanically ventilated. He is now on ventilator settings assist control rate of 3 to tell volume is 400 FiO2 80% and PEEP of 16. ABG showed a pO2 of 77 pCO2 of 68 pH of 7.28. Patient remains on propofol at 40, Nimbex at 1.2 fentanyl 0.5, IV fluid at KVO. FiO2 was decreased today from on the percent to 80%, and increase the flow rate to 65 L/m. Chest x-ray is showing no significant change. Patient remains fully sedated and paralyzed. He is on tube feeding using vital HP at 20 mL per hour. Electrolytes were reviewed potassium is 5.4. BUN is 55 creatinine 1.1, hence increase his IV fluid rate to 100 mL per hour. Bit of leukocytosis noted today, but improved compared to yesterday WBC count is 19.5 hemoglobin is 13.4. LDH continues on the rise to 081, and C-reactive protein is better at 1.5. Patient was reevaluated today on 09/17/2020, remains in the ICU, intubated mechanically ventilated, sedated, paralyzed, his ventilator settings are assist control rate of 32, tidal volume is 400 FiO2 65% and PEEP remains at 16. Peak airway pressure is 37, static pressures 27, chest x-ray continues to show by lateral patchy infiltrates consistent with COVID-19 pneumonia. ABG showed a pO2 of 64 pCO2 of 69 pH of 7.26. Hence his tidal volume was increased up to 420 7400. Patient will remain sedated. No plans to wean or extubated anytime soon. Patient remains on propofol at 40 Nimbex at 2 fentanyl 0.5 IV fluid at 100 mL per hour, he is on tube feeding 37/37 vital HP. Electrolytes are normal BUN is 58 creatinine is 1.08. Improving. LDH was 2080 yesterday. And C-reactive protein 1.5 Patient was reevaluated today on 09/18/2020, remains in the ICU intubated mechanically ventilated and sedated and paralyzed. Still requiring relatively high FiO2 of 65 and high PEEP of 16. ABG is marginal. He is on assist control rate of 34 tidal volume 420 FiO2 65% PEEP of 16. ABG showed a pO2 of 64 pCO2 of 61 pH of 7.32. Patient remains on propofol at 40 Nimbex at 0.2 and fentanyl at 0.5. Remains on tube feeding/vital HP at 37 mL per hour. Plan today to give the patient at least and Nimbex holiday if possible. Chest x-ray is basically unchanged. And his overall condition is about the same. WBC count is 14.9 hemoglobin is 12. Electrolytes showed elevated sodium of 146 hence the patient will be given free water and potassium of 5.6 we'll give a dose of Kayexalate. Renal profile showed a BUN of 54 creatinine 0.97, improving. Objective - Vital Signs Vital signs: Vital Signs Temp 98.2 F 09/18/20 08:00 Pulse 68 09/18/20 11:00 Resp 32 H 09/18/20 11:00 BP 140/72 09/16/20 22:00 Pulse Ox 87 L 09/18/20 11:00 Intake & Output 09/17/20 09/18/20 09/18/20 18:59 06:59 18:59 Intake Total 2027.808 8768.645 9818.832 Output Total 1275 1365 485 Balance 752.808 562.514 574.832 Weight 92.1 kg Intake: IV 1236 1236 515 Pressure bag 36 36 15 Sodium Chloride 0.9% 1, 1200 1200 500 000 ml @ 100 mls/hr IV . Q10H [facility] Rx#:[id number] Intake, IV Titration 465.808 284.514 159.832 Amount Cisatracurium 200 mg In 200 Sodium Chloride 0.9% 180 ml @ 1 MCG/KG/MIN 5.61 mls/hr IV .Q24H [facility] Rx#: [id number] fentaNYL (PF). 1,000 mcg 91.245 67.298 In Sodium Chloride 0.9% 80 ml @ Per Protocol IV . Q0M [facility] Rx#:[id number] propofoL 1,000 mg In 265.808 193.269 92.534 Empty Bag 1 bag @ Titrate IV .Q0M [facility] Rx#: [id number] Tube Feeding 296 407 185 Other 30 200 Output: Urine 1275 1365 485 Stool 0 Other: Voiding Method Indwelling Catheter Indwelling Catheter Indwelling Catheter ABP, PAP, CO, CI - Last Documented Arterial Blood Pressure 144/64 - Exam GENERAL EXAM: Revealed 54-year-old male intubated and mechanically ventilated, sedated and paralyzed, in no distress. HEAD: Normocephalic. Atraumatic, endotracheal tube and orogastric tube is intact. EYES: PERRLA, EOMI, nonicteric.. NOSE: Clear with pink turbinates. THROAT: No erythema or exudates. NECK: No masses, no JVD. CHEST: No chest wall deformity. LUNGS: Crackles, and rhonchi noted bilaterally. CVS: S1 and S2 normal with no audible murmur, regular rhythm. ABDOMEN: No hepatosplenomegaly, normal bowel sounds, no guarding or rigidity. Musculoskeletal: No deformities. SKIN: No rashes CENTRAL NERVOUS SYSTEM: Not assess EXTREMITIES: No clubbing edema or cyanosis. Psychiatric: Could not assess. - Labs CBC & Chem 7: 09/18/20 05:15 09/18/20 05:15 Labs: Abnormal Lab Results - Last 24 Hours (Table) 09/17/20 09/17/20 09/17/20 Range/Units 15:31 17:59 23:57 WBC (3.8-10.6) k/uL RBC (4.30-5.90) m/uL Hgb (13.0-17.5) gm/dL Hct (39.0-53.0) % Plt Count (150-450) k/uL Neutrophils # (1.3-7.7) k/uL Lymphocytes # (1.0-4.8) k/uL ABG pH (7.35-7.45) ABG pCO2 (35-45) mmHg ABG pO2 (83-108) mmHg ABG HCO3 (21-25) mmol/L ABG Total CO2 (19-24) mmol/L ABG O2 Saturation (94-97) % Sodium (137-145) mmol/L Potassium (3.5-5.1) mmol/L Chloride (98-107) mmol/L Carbon Dioxide (22-30) mmol/L BUN (9-20) mg/dL Glucose (74-99) mg/dL POC Glucose (mg/dL) 254 H 206 H 201 H (75-99) mg/dL Calcium (8.4-10.2) mg/dL 09/18/20 09/18/20 09/18/20 Range/Units 05:15 05:15 05:15 WBC 14.9 H (3.8-10.6) k/uL RBC 4.01 L (4.30-5.90) m/uL Hgb 12.0 L (13.0-17.5) gm/dL Hct 38.3 L (39.0-53.0) % Plt Count 104 L (150-450) k/uL Neutrophils # 13.5 H (1.3-7.7) k/uL Lymphocytes # 0.5 L (1.0-4.8) k/uL ABG pH 7.32 L (7.35-7.45) ABG pCO2 61 H (35-45) mmHg ABG pO2 64 L (83-108) mmHg ABG HCO3 32 H (21-25) mmol/L ABG Total CO2 34 H (19-24) mmol/L ABG O2 Saturation 92.8 L (94-97) % Sodium 146 H (137-145) mmol/L Potassium 5.6 H (3.5-5.1) mmol/L Chloride 112 H (98-107) mmol/L Carbon Dioxide 32 H (22-30) mmol/L BUN 54 H (9-20) mg/dL Glucose 178 H (74-99) mg/dL POC Glucose (mg/dL) (75-99) mg/dL Calcium 8.3 L (8.4-10.2) mg/dL Assessment and Plan Assessment: Impression: Acute hypoxic respiratory failure secondary to acute COVID-19 pneumonia with ARDS. Patient received toci, and convalescent plasma, remains on the COVID-19 cocktail. Remains on Lovenox 40 mg subcu daily instead of every 12 hours.. Patient was intubated on 09/12 not ready for any form of weaning. Continues to have high PEEP, PEEP remains at 16, FiO2 remains at 65%. Elevated inflammatory markers secondary to above Benign essential hypertension Former smoker. Hypernatremia secondary to free water deficit. We will correct accordingly. Hyperkalemia secondary to his underlying respiratory acidosis, will correct accordingly. Recommendation: Will give the patient at least a Nimbex holiday today, and see if he tolerates being off Nimbex for a period of time. Continue sedation otherwise. Continue ventilatory support, no change today. Continue nutritional support. Change Solu-Medrol. Continue Lovenox at 40 mg subcu daily Continue the COVID-19 cocktail. Patient received convalescent plasma and toci Continue to monitor inflammatory markers. Free water for hypernatremia. This will be given via orogastric tube/flushes. Kayexalate for elevated potassium. Continue GI and DVT prophylaxis Patient remains critically ill, critical care time is over 30 minutes. Time with Patient: Greater than 30
[2020-09-18 12:07] LABS: Glucose,Whole Blood 161 mg/dL (75-99)
[2020-09-18] MEDS: CISATRACURIUM 200 MG in SODIUM CHLORIDE 0.9% 180 ML IV SCH (12:16)
--- NOTE | 2020-09-18 14:04 | P.PN ---
Subjective Progress Note Date: 09/18/20 This is a 54-year-old male was recently admitted with shortness of breath and cough episodes of diarrhea nausea and generalized body aches and fevers and was recently diagnosed with COVID-19 one week prior to hospitalization. Patient continues to be intubated and sedated on mechanical ventilator and being closely monitored in the ICU. Pulmonary following closely. Chest x-ray today shows stable patchy mid and lower lung infiltrates persist without significant change. D-dimer slightly trending down at 4.91 and white blood count is 19.5, hemoglobin is stable at 13.4, sodium is 140 with a potassium of 5.4 and current creatinine is 1.21. LDH elevated at 2080 and CRP slowly trending down at 1.5. Patient continues on mechanical vent and FiO2 titrated down to 65. Patient continues on Nimbex along with fentanyl and propofol for sedation. Patient to continue on IV steroids along with Lovenox and vitamin and zinc supplements. 09/17/2020 Patient is seen in follow-up this morning continues to be closely monitored in the ICU. Patient remains on mechanical ventilation and is currently sedated. Chest x-ray today shows patchy perihilar and basilar infiltrates persist with slight improvement suggested in the right lung base. D-dimer slowly trending down at 2.98 BMP within normal limits creatinine slightly improved at 1.08. Patient is maintained on vitamin and zinc supplements along with Lovenox and will continue with IV Solu-Medrol 60 mg every 6 hours. Pulmonary following closely. Lovenox has been adjusted to 40 mg subcutaneous daily. 09/18/2020 Patient continues to be closely monitored in the ICU continues to be on mechanical ventilation and currently sedated. Pulmonary following closely. Chest x-ray today shows bilateral multifocal and confluent and reticular opacities consistent with COVID-19 infection again noted with no significant change from one day previously. Oxygen saturations continue to be mid 80s to 90% with an FiO2 of 65 and a PEEP of 16 on the vent. Patient continues to be tachypneic. Patient is having intermittent low-grade fevers of 100.1 and 99.1. White blood count continues to trend down at 14.9 hemoglobin is 12.0, sodium is 146 with a potassium of 5.6 current creatinine is 0.97. Patient given a dose of Kayexalate for the potassium and will repeat a.m. labs. Patient is maintained on vitamin and zinc supplements along with IV Solu-Medrol and Lovenox and will continue. Continue with free water flushes for hypernatremia due to tube feeding as he continues to be on nutritional support via the orogastric tube. Review of systems: Unable to obtain as patient is currently intubated and sedated Active Medications Acetaminophen (Acetaminophen Tab 325 Mg Tab) 650 mg PO Q6HR PRN PRN Reason: Fever and/ or Pain Last Admin: 09/16/20 11:48 Dose: 650 mg Documented by: Albuterol Sulfate (Albuterol Hfa Inhaler) 2 puff INHALATION RT-QID PRN PRN Reason: Shortness Of Breath Last Admin: 09/04/20 17:46 Dose: 2 puff Documented by: Albuterol Sulfate (Albuterol Hfa Inhaler) 2 puff INHALATION RT-QID [facility] Last Admin: 09/18/20 10:51 Dose: 2 puff Documented by: Allopurinol (Allopurinol 300 Mg Tab) 300 mg PO DAILY [facility] Last Admin: 09/18/20 09:54 Dose: 300 mg Documented by: Amlodipine Besylate (Amlodipine 10 Mg Tab) 10 mg PO DAILY [facility] Last Admin: 09/18/20 09:54 Dose: 10 mg Documented by: Ascorbic Acid (Ascorbic Acid 500 Mg Tab) 500 mg PO BID [facility] Last Admin: 09/18/20 09:54 Dose: 500 mg Documented by: Aspirin (Aspirin 81 Mg) 81 mg PO DAILY [facility] Last Admin: 09/18/20 09:54 Dose: 81 mg Documented by: Atorvastatin Calcium (Atorvastatin 80 Mg Tab) 80 mg PO DAILY [facility] Last Admin: 09/18/20 09:54 Dose: 80 mg Documented by: Chlorhexidine Gluconate (Chlorhexidine Gluconate 15 Ml Cup) 15 ml MUCOUS MEM BID [facility] Last Admin: 09/18/20 09:55 Dose: 15 ml Documented by: Cholecalciferol (Cholecalciferol 25 Mcg (1000 Iu) Tablet) 125 mcg PO DAILY [facility] Last Admin: 09/18/20 09:54 Dose: 125 mcg Documented by: Enoxaparin Sodium (Enoxaparin 40 Mg/0.4 Ml Syringe) 40 mg SQ DAILY [facility] Last Admin: 09/18/20 09:55 Dose: 40 mg Documented by: Famotidine (Famotidine 20 Mg Tab) 20 mg PO BID [facility] Last Admin: 09/18/20 09:54 Dose: 20 mg Documented by: Heparin Sodium (Porcine) (Heparin Sodium 1,000 Un/Ml (10ml Vl)) 0 unit IV PER PROTOCOL PRN; Protocol PRN Reason: Low PTT Last Admin: 09/03/20 17:35 Dose: 4,900 unit Documented by: Sodium Chloride (Saline 0.9%) 1,000 mls @ 100 mls/hr IV .Q10H [facility] Last Admin: 09/18/20 10:13 Dose: 100 mls/hr Documented by: Propofol 1,000 mg/ IV Solution 100 mls @ 0 mls/hr IV .Q0M [facility]; Protocol Last Admin: 09/18/20 12:14 Dose: 40 mcg/kg/min, 22.032 mls/hr Documented by: Cisatracurium Besylate 200 mg/ (Sodium Chloride) 200 mls @ 5.61 mls/hr IV .Q24H [facility]; Protocol Last Admin: 09/18/20 12:16 Dose: 2 mcg/kg/min, 11.22 mls/hr Documented by: Fentanyl Citrate 1,000 mcg/ (Sodium Chloride) 100 mls @ 0 mls/hr IV .Q0M [facility]; Protocol Last Admin: 09/18/20 10:34 Dose: 0.5 mcg/kg/hr, 4.62 mls/hr Documented by: Insulin Aspart (Insulin Aspart (Novolog) 100 Unit/Ml Vial) 0 unit SQ Q6HR [facility]; Protocol Last Admin: 09/18/20 12:15 Dose: 3 unit Documented by: Methylprednisolone Sodium Succinate (Methylprednisolone Sod Succi 125 Mg/2 Ml Vial) 60 mg IV Q6HR [facility] Last Admin: 09/18/20 12:15 Dose: 60 mg Documented by: Metoprolol Tartrate (Metoprolol Tartrate 12.5 Mg Tab) 12.5 mg PO BID [facility] Last Admin: 09/18/20 09:54 Dose: 12.5 mg Documented by: Nitroglycerin (Nitroglycerin Sl Tabs 0.4 Mg Tab) 0.4 mg SUBLINGUAL Q5M PRN PRN Reason: Chest Pain Last Admin: 09/07/20 03:35 Dose: 0.4 mg Documented by: Promethazine HCl (Promethazine Hcl 6.25 Mg/5 Ml Cup) 12.5 mg PO QID PRN PRN Reason: Cough Last Admin: 09/06/20 02:07 Dose: 12.5 mg Documented by: Zinc Sulfate (Zinc Sulfate 220 Mg Cap) 220 mg PO DAILY [facility] Last Admin: 09/18/20 09:54 Dose: 220 mg Documented by: Objective - Vital Signs Vital signs: Vital Signs Temp 99.1 F 09/18/20 12:00 Pulse 72 09/18/20 13:00 Resp 32 H 09/18/20 13:00 BP 140/72 09/16/20 22:00 Pulse Ox 90 L 09/18/20 13:00 Intake & Output 09/17/20 09/18/20 09/18/20 18:59 06:59 18:59 Intake Total 2027.808 0977.068 7142.990 Output Total 1275 1365 735 Balance 752.808 253.057 5117.990 Weight 92.1 kg Intake: IV 1236 1236 721 Pressure bag 36 36 21 Sodium Chloride 0.9% 1, 1200 1200 700 000 ml @ 100 mls/hr IV . Q10H [facility] Rx#:[id number] Intake, IV Titration 465.808 284.514 444.990 Amount Cisatracurium 200 mg In 200 193.358 Sodium Chloride 0.9% 180 ml @ 1 MCG/KG/MIN 5.61 mls/hr IV .Q24H [facility] Rx#: [id number] fentaNYL (PF). 1,000 mcg 91.245 67.298 In Sodium Chloride 0.9% 80 ml @ Per Protocol IV . Q0M [facility] Rx#:[id number] propofoL 1,000 mg In 265.808 193.269 184.334 Empty Bag 1 bag @ Titrate IV .Q0M [facility] Rx#: [id number] Tube Feeding 296 407 222 Other 30 400 Output: Urine 1275 1365 735 Stool 0 Other: Voiding Method Indwelling Catheter Indwelling Catheter Indwelling Catheter ABP, PAP, CO, CI - Last Documented Arterial Blood Pressure 159/65 - Exam Gen: This is a 54-year-old male currently intubated and sedated. Temp is 99.1F, pulse is 68, respirations are 32, blood pressure is 153/64, oxygen sat uration is 86% with an FiO2 of 65 HEENT: Head is atraumatic, normocephalic. Pupils equal, round. Sclerae is anicteric. NECK: Supple. No JVD. No lymphadenopathy. No thyromegaly. LUNGS: diminished breath sounds bilaterally with some scattered rhonchi and crackles noted. Tachypneic. No intercostal retractions. HEART: S1, S2 are muffled ABDOMEN: Soft. Bowel sounds are present. No masses. No tenderness. EXTREMITIES: No pedal edema. No calf tenderness. NEUROLOGICAL: Unable to completely assess as patient is intubated and sedated on paralytics - Labs CBC & Chem 7: 09/18/20 05:15 09/18/20 05:15 Labs: Abnormal Lab Results - Last 24 Hours (Table) 09/17/20 09/17/20 09/17/20 Range/Units 15:31 17:59 23:57 WBC (3.8-10.6) k/uL RBC (4.30-5.90) m/uL Hgb (13.0-17.5) gm/dL Hct (39.0-53.0) % Plt Count (150-450) k/uL Neutrophils # (1.3-7.7) k/uL Lymphocytes # (1.0-4.8) k/uL ABG pH (7.35-7.45) ABG pCO2 (35-45) mmHg ABG pO2 (83-108) mmHg ABG HCO3 (21-25) mmol/L ABG Total CO2 (19-24) mmol/L ABG O2 Saturation (94-97) % Sodium (137-145) mmol/L Potassium (3.5-5.1) mmol/L Chloride (98-107) mmol/L Carbon Dioxide (22-30) mmol/L BUN (9-20) mg/dL Glucose (74-99) mg/dL POC Glucose (mg/dL) 254 H 206 H 201 H (75-99) mg/dL Calcium (8.4-10.2) mg/dL 09/18/20 09/18/20 09/18/20 Range/Units 05:15 05:15 05:15 WBC 14.9 H (3.8-10.6) k/uL RBC 4.01 L (4.30-5.90) m/uL Hgb 12.0 L (13.0-17.5) gm/dL Hct 38.3 L (39.0-53.0) % Plt Count 104 L (150-450) k/uL Neutrophils # 13.5 H (1.3-7.7) k/uL Lymphocytes # 0.5 L (1.0-4.8) k/uL ABG pH 7.32 L (7.35-7.45) ABG pCO2 61 H (35-45) mmHg ABG pO2 64 L (83-108) mmHg ABG HCO3 32 H (21-25) mmol/L ABG Total CO2 34 H (19-24) mmol/L ABG O2 Saturation 92.8 L (94-97) % Sodium 146 H (137-145) mmol/L Potassium 5.6 H (3.5-5.1) mmol/L Chloride 112 H (98-107) mmol/L Carbon Dioxide 32 H (22-30) mmol/L BUN 54 H (9-20) mg/dL Glucose 178 H (74-99) mg/dL POC Glucose (mg/dL) (75-99) mg/dL Calcium 8.3 L (8.4-10.2) mg/dL 09/18/20 Range/Units 12:05 WBC (3.8-10.6) k/uL RBC (4.30-5.90) m/uL Hgb (13.0-17.5) gm/dL Hct (39.0-53.0) % Plt Count (150-450) k/uL Neutrophils # (1.3-7.7) k/uL Lymphocytes # (1.0-4.8) k/uL ABG pH (7.35-7.45) ABG pCO2 (35-45) mmHg ABG pO2 (83-108) mmHg ABG HCO3 (21-25) mmol/L ABG Total CO2 (19-24) mmol/L ABG O2 Saturation (94-97) % Sodium (137-145) mmol/L Potassium (3.5-5.1) mmol/L Chloride (98-107) mmol/L Carbon Dioxide (22-30) mmol/L BUN (9-20) mg/dL Glucose (74-99) mg/dL POC Glucose (mg/dL) 161 H (75-99) mg/dL Calcium (8.4-10.2) mg/dL Assessment and Plan Assessment: -Acute hypoxic respiratory failure: Secondary to Covid 19 -Lactic acidosis, resolved -Hypertension -Ruled out PE -Elevated troponins secondary to type II CT secondary to hypoxemia -History of gastroesophageal reflux disease -GI prophylaxis with Pepcid -DVT prophylaxis with Lovenox -Full code Recommendations and discussion: Recommend to continue with current medications, management, and symptomatic treatment. Continues IV Solu-Medrol along with Lovenox and vitamin and zinc supplements. Patient continues to be intubated and sedated with paralytics and maintained on Nimbex. Attempts at possible Nimbex holiday to assess as patient tolerates. Intensive is following closely. Patient has recently received Tocilizumab and 1 unit of convalescent plasma as he was outside of the window for Remdesivir. Blood sugars elevated and will continue with Accu-Cheks and sliding scale every 6 hours. Chest x-ray today shows no significant change from previous. Pulmonary following closely. Calcium was found to be elevated at 5.6 and will give a dose of Kayexalate. Continue with free water flushes via orogastric tube and tube feedings as sodium is elevated at 146. Due to multiple complex medical issues, prognosis remains extremely guarded. Further recommendations to follow. Time with Patient: Greater than 30
[2020-09-18 17:44] LABS: Glucose,Whole Blood 180 mg/dL (75-99)
[2020-09-19 00:13] LABS: Glucose,Whole Blood 175 mg/dL (75-99)
[2020-09-19] MEDS: INSULIN ASPART (NovoLOG) 100 UNIT/ML VIAL SQ SCH ×5 (00:45→23:31)
[2020-09-19 05:11] LABS: ABG Base Excess 6.2 mmol/L; ABG HCO3 32 mmol/L (21-25); ABG Oxygen Saturation 94.9 % (94-97); ABG PCO2 63 mmHg (35-45); ABG PH 7.32 (7.35-7.45); ABG PO2 72 mmHg (83-108); ABG TCO2 34 mmol/L (19-24); Allen Test Performed? Yes
[2020-09-19 05:40] LABS: Basophils # (A) 0.1 k/uL (0-0.2); Basophils % (A) 1 %; Eosinophils % (A) 0 %; HCT 33.2 % (39.0-53.0); HGB 11.1 gm/dL (13.0-17.5); Lymphocytes # (A) 0.5 k/uL (1.0-4.8); Lymphocytes % (A) 4 %; MCH 31.8 pg (25.0-35.0); MCHC 33.4 g/dL (31.0-37.0); MCV 95.4 fL (80.0-100.0); Mean Platelet Volume 8.5; Monocytes # (A) 0.9 k/uL (0-1.0); Monocytes % (A) 8 %; Neutrophils # (A) 10.1 k/uL (1.3-7.7); Neutrophils % (A) 86 %; Platelet Count 100 k/uL (150-450); RBC 3.48 m/uL (4.30-5.90); RDW 15.2 % (11.5-15.5); WBC 11.7 k/uL (3.8-10.6)
[2020-09-19 05:48] LABS: African American GFR (CKD) >90 (>60 ml/min/1.73 sqM); Anion Gap 2 mmol/L; Blood Urea Nitrogen 52 mg/dL (9-20); Calcium 7.8 mg/dL (8.4-10.2); Carbon Dioxide 33 mmol/L (22-30); Chloride 114 mmol/L (98-107); Glucose 176 mg/dL (74-99); Non-African American GFR(CKD) 83 (>60 ml/min/1.73 sqM); Potassium 4.8 mmol/L (3.5-5.1); Sodium 149 mmol/L (137-145)
[2020-09-19] MEDS: methylPREDNISolone SOD SUCCI 125 MG/2 ML VIAL IV SCH ×4 (06:31→23:31)
[2020-09-19] MEDS: SODIUM CHLORIDE 0.9% 1,000 ML IV SCH (06:31)
[2020-09-19] MEDS: CISATRACURIUM 200 MG in SODIUM CHLORIDE 0.9% 180 ML IV SCH ×2 (08:04→20:02)
--- NOTE | 2020-09-19 08:21 | XR ---
EXAMINATION TYPE: XR chest 1V portable DATE OF EXAM: 09/19/2020 Comparison: 09/18/2020 Clinical History: 54-year-old male COVID Findings: ET tube tip just below the level of the medial clavicular heads. NG tube courses below the diaphragm. Left subclavian CVC tip may have been pulled back slightly probably near the brachiocephalic vein co nfluence level. Heart normal size. Aorta within normal limits. Patchy airspace opacities mid and lowe r lungs slightly increased on the right. No sizable pleural effusion. Impression: Patchy mid and lower lung airspace disease shows slight worsening on the right.
[2020-09-19] MEDS: ALBUTEROL HFA INHALER INHALATION SCH ×4 (08:31→18:54)
[2020-09-19] MEDS: allopurinoL 300 MG TAB PO SCH (08:32)
[2020-09-19] MEDS: ATORVASTATIN 80 MG TAB PO SCH (08:32)
[2020-09-19] MEDS: CHLORHEXIDINE GLUCONATE 15 ML CUP MUCOUS MEM SCH ×2 (08:32→20:02)
[2020-09-19] MEDS: ASPIRIN 81 MG PO SCH (08:33)
[2020-09-19] MEDS: amLODIPine 10 MG TAB PO SCH (08:33)
[2020-09-19] MEDS: CHOLECALCIFEROL 25 MCG (1000 IU) TABLET PO SCH (08:33)
[2020-09-19] MEDS: ENOXAPARIN 40 MG/0.4 ML SYRINGE SQ SCH (08:33)
[2020-09-19] MEDS: FAMOTIDINE 20 MG TAB PO SCH ×2 (08:33→20:02)
[2020-09-19] MEDS: METOPROLOL TARTRATE 12.5 MG TAB PO SCH ×2 (08:33→20:02)
[2020-09-19] MEDS: ASCORBIC ACID 500 MG TAB PO SCH ×2 (08:33→20:02)
[2020-09-19] MEDS: ZINC SULFATE 220 MG CAP PO SCH (08:33)
[2020-09-19] MEDS: fentaNYL (PF). 1,000 MCG in SODIUM CHLORIDE 0.9% 80 ML IV SCH ×2 (08:48→17:03)
[2020-09-19 12:00] LABS: Glucose,Whole Blood 163 mg/dL (75-99)
[2020-09-19] MEDS ORDERED: DEXTROSE 5% IN WATER 1,000 ML IV ONE (12:13)
--- NOTE | 2020-09-19 12:23 | P.PN ---
Subjective Progress Note Date: 09/19/20 Principal diagnosis: Acute hypoxic respiratory failure secondary to COVID-19 pneumonia and ARDS. 54-year-old white male patient who is an ex smoker, carries [id number] smoking history quit smoking 1 year ago in May, history of hypertension and gout who sees Dr. Contreras, presented to the emergency department on 08/02/2020 with complaints of worsening shortness of breath, cough, and patient was diagnosed with Covid 19 one week ago, was tested at [facility] per Dr. Contreras's order. 2 weeks ago he had symptoms of flulike illness, sore throat, shortness of breath, weakness, muscle aches which progressively became worse, and patient developed worsening shortness of breath and had difficulty breathing and ambulating at home. He was placed on Decadron [address] Contreras and he has 1-1/2 days worth left of it. Chest x-ray in the emergency department showed bilateral interstitial pneumonia. White blood cell count was 33.1, d-dimer was greater than 35.2, CO2 is 16, the rest of electrolytes were unremarkable, B1 is 35 creatinine is 1.04, plasma lactic acid is 4.5, patient was given IV fluids and lactic acid came down to 1.8, total bilirubin was 1.6, AST is 107, ALT is 48, alkaline phosphatase is 114, LDH is 5924, first troponin was 4.190, and the second one went up to 6.960. CRP is 180.3, pro-calcitonin level is 0.33, urinalysis showed 1+ protein, but no definite sign of infection, pulse ox is 86 on room air, patient has significant shortness of breath, and was placed on BiPAP support, currently with pressures of 12/6, and FiO2 of 100% on which he remains this morning, he is afebrile, hemodynamically he is stable, she was started on IV Decadron, we'll start him on intermediate dose of Lovenox 50 mg every 12 hours, CTA chest shows no evidence of pulmonary embolism, and extensive pulmonary infiltrates that are mostly interstitial consistent with severe interstitial pneumonia. Progress note dated 09/04/2020. 54-year-old male, admitted with a diagnosis of COVID 19 pneumonitis. Currently, he is on BiPAP at 12/6 and 90%. FiO2 will be dropped down to 80%. In addition, he is getting saline at 75 mL an hour. The patient's doing better today. He states that he feels better. He still short of breath with activity. I did tell him today to make sure he moves around in bed when he is laying in bed. White count 29.3, hemoglobin 14.6, hematocrit 42.7, platelet count 140,000. D- dimer greater than 34.10. Sodium 136, potassium 5.1, chlorides 105, CO2 25, anion gap 6, BUN 39, creatinine 0.9. LDH is 3965. C-reactive protein 143. Chest x-ray shows a worsening pattern of bilateral airspace disease. Progress note dated 09/05/2020. 54-year-old male, admitted with a diagnosis of COVID 19 pneumonitis. He remains on BiPAP with an FiO2 of 80%. Settings included an IPAP 12, EPAP 6. The patient states that he feels a bit better. He is getting saline at 75 mL an hour. He feels like he is breathing is improved. He does know to move about in bed. No new laboratory data today. His most recent chest x-ray was from yesterday and was reviewed. The patient's on appropriate medications. Progress note dated 09/06/2020. 54-year-old male, seen again today. The patient is on BiPAP, settings of IPAP 12, EPAP 6, and 90%. He is also getting saline at 75 mL an hour. Was admitted with a diagnosis of acute hypoxemic respiratory failure secondary to COVID 19 pneumonia. The patient feels about the same. No better or no worse. He will have a chest x-ray tomorrow. Labs are reviewed. White count 19.3, hemoglobin 15, hematocrit 43.9, and platelet count 92,000. Sodium 135, potassium 4.9, chlorides 109, CO2 20, anion gap 6, BUN 34, and creatinine 0.92. There is no recent chest x-ray to review. The patient is seen today 09/07/2020 in follow-up on the selective care unit. He is currently resting comfortably in bed. States he is doing a little better today compared to yesterday. He is still requiring BiPAP support 12/6 and 100% FiO2. Chest x-ray reveals stable bilateral lung infiltrates. Blood glucose 163. He remains on bronchodilators, vitamin supplements, dexamethasone, Lovenox. 0.9 normal saline at 75 ML's per hour. On 09/08/2020, the patient is being seen in follow-up on the [facility] units. The patient is a 54-year-old male patient with Covid 19 related pneumonia and the patient has diffuse stable by the pulmonary infiltrates. The patient remains on Decadron. The patient is also on Lovenox 40 mg subcu every 12 hours. The patient is also requiring BiPAP for respiratory support at a pressure of 12/6 cm of water and FiO2 of 100%. The patient is able to generate a tidal volume of 800 mL of the respiratory rate of 24 and a minute ventilation of 23 L. The patient Has elevated inflammatory markers and the last time the markers were checked were on 09/04/2020 with an LDH of 3965 and a CRP of 142. Levels will need to be rechecked. The d-dimer was above 34. The LDH level remains elevated at 3911. D-dimer is 24.6. The patient is also on IV fluids with normal saline at the rate of 75 mL an hour. The patient is on Decadron 6 because IV every 24 hours. The patient is also on Lovenox 40 mg subcu every 12 hours. His current BMI 31.5. On 09/09/2020, the patient is being seen for a follow-up. The patient continues to be on a BiPAP at a pressure of 12/6 cm of water with an FiO2 of 100%. The patient is awake and he requires assistance to be moved around. His tidal volume is in the order of 800 mL which is comparable to yesterday. A repeat chest x-ray was done and it shows some limited improvement in the bilateral pulmonary infiltrates. the patient remains on Decadron and the dose is currently at 60 mg IV every 12 hours. inflammatory markers are elevated with an LDH level of 3 911 and the CRP is 22.5. His d-dimer is still elevated at 24.6 and the patient is on Lovenox at a dose of 40 mg subcu every 12 hours.. On his problem continue to be the patient's hypoxemia, Covid 19 related pneumonia and global weakness. Unfortunately, the patient is unable to eat as the patient desaturates significantly was taken off the BiPAP. 09/10/2020 the patient remains BiPAP dependent at the pressure of 12/6 cm of water. His FiO2 is still 100%. He was still able to generate adequate tidal volumes while being on a BiPAP. He has had a PICC line yesterday as the patient was not meeting his caloric requirements and I was also contemplating the possibility of TPN. His chest x-ray remains unchanged with diffuse bilateral infiltrates consistent with Covid 19 related pneumonia. His blood work is showing a d-dimer of 24 from 2 days ago. Electrolytes are normal, and no new inflammatory markers. The current pulse ox is 92% on a BiPAP and the patient remains on Decadron 6 mg IV every 12 hours. 09/11/2020, the patient remains on a BiPAP at a pressure of 12/6 and FiO2 of 100%. He is quite lethargic. He is in mild degree of respiratory distress even at rest while on the BiPAP. Current pulse ox is 89%. A PICC line was inserted yesterday and the patient was also started on TPN for nutritional support knowing that he was able to eat and he was not meeting his caloric requirements. His d-dimer is 15. The patient is on Lovenox 50 mg subcu every 12 hours. The patient is also receiving Decadron 6 mg IV 12 hours. Current pulse ox is around 89%. No major changes condition since yesterday. No other new labs otherwise. His resting in bed comfortably. He is generating tidal volumes above >600cc with respiratory rate in the mid 20s. He had no signs of any fluid overload. Mentation is preserved. Looks lethargic. He is able to answer questions and following commands. No other significant issues otherwise for now. I will today's condition is essentially stable since yesterday. 09/12/2020 the patient remains on BiPAP 12/6 cm of water with an FiO2 of 100%. Condition is essentially the same and unchanged compared to yesterday. The patient is currently on a pulse ox of 94% on above-mentioned BiPAP setting. He remains on Decadron 6 mg IV every 12 hours. He also is on Lovenox 50 mg subcu every 12 hours. He has an LDH level of 5040 at a CRP of 8.2. His inflammatory markers were obtained yesterday and they were quite elevated. He is still able to generate tidal volumes above 500 and his respiratory rate currently is in the 00s for now. Chest x-ray is consistent with diffuse bilateral pulmonary infiltrates. He has a PICC line in his left upper extremity and the patient is receiving TPN for nutritional support. As mentioned, he remains weak and lethargic. He is arousable and follows commands and answering questions. 09/13/2020, the patient got transferred to the intensive care unit where the patient got intubated and placed on a mechanical ventilator. Note that the patient was maintaining relatively fine on the BiPAP and ultimately desaturates., Became more short of breath and unresponsive in the blood. Showed significant hypoxemia and he had to come in to the ICU where he was intubated and placed on a mechanical ventilator. At this point and he is sedated with propofol running at 50 mcg/kg per minute and the patient is also paralyzed with Nimbex at 3 mcg/kg per minute. He is currently on assist control mode at the rate of 32 with a tidal volume of 400 and FiO2 of 1% with a PEEP of 15. The blood gases post intubation showed a pH of 7.22 and a pCO2 of 61 and pO2 of 89. His chest x-ray showing adequate positioning of ET tube. He has diffuse bilateral pulmonary infiltrates consistent with Covid 19 related p neumonia. Peak airway pressure 38. Static pressures 34. He is well rested and paralyzed for now. His BP currently is running at 156/59 and the patient was quite hypertensive prior to his intubation. His blood pressure came up to 182/110 and currently it's more stable. Labs are still pending for now. Meanwhile, the patient remains on Decadron 6 mg IV every 12 hours. Is also on Lovenox 40 mg subcu twice a day. He was receiving TPN for nutritional support as the patient was unable to take any form of oral intake as he was very much BiPAP dependent. TPN will be discontinued and the patient will be transitioned to enteral feeding note that he is currently intubated on a mechanical venti lator. A central line was also inserted. IV fluids are running at the rate of 20 mL an hour of normal saline. TPN Is currently running at 90 mL an hour. 09/14/2020, the patient is intubated on a mechanical ventilator in the intensive care unit. The patient currently is sedated and paralyzed. Propofol is running at 40 mcg/kg per minute and the Nimbex is running at 1.8 mcg/kg per minute. He is adequately sedated and paralyzed. He is still assist-control mode of mechanical ventilation at the rate of 32 with a tidal volume of 400 and FiO2 of 100% and a PEEP of 15. His blood gases from today showed a pH of 7.29 and pCO2 of 62 and pO2 of 86. We are allowing permissive hypercapnia. The peak and static pressures today are 14 and 34 respectively. His chest x-ray from today showing diffuse bilateral pulmonary infiltrates more so in the lower lobes and there is extensive consolidation of the lower lobes bilaterally. ET tube is at the level of the aortic knob. NG tube is in place. The patient remains on Decadron and currently is at a dose of 6 mg IV every 12 hours. In terms of his blood work, his inflammatory markers show a drop in the LDH level which is down to 294 and a CRP level is down to 5.2. D-dimer from a few days ago was 15.6 and the patient remains on Lovenox at a dose of 40 mg subcu every 12 hours. His TPN has been discontinued and the patient was switched enteral feeding and the patient is currently on vital high protein at the rate of 20 mL an hour which is at goal for now. IV fluids running at 20 mL an hour. He is hemodynamically stable. His overall fluid balance has been +1.6 L over the past 24 hours. Note that this patient was intubated yesterday after failing BiPAP for several days. He was intubated on 08/12/2020. Family is aware. Patient was reevaluated today on 09/15/2020, remains intubated and mechanically ventilated. Patient is presently on assist control rate of 52 tidal volume is 400 FiO2 at 90% PEEP is 15 ABG showed a pO2 of 77 pCO2 of 64 pH of 7.30. His peak airway pressure is 47 static pressure is 43. Attempted to adjust the PEEP higher, however he static pressure was getting much higher. Hence The PEEP at 15. And I adjusted the flow rate down to 60. He is on multiple drips including Nimbex at 1.5 mcg/kg/minute. he is on propofol at 40 mcg/kg per minute. Patient remains on permissive hypercapnia with a pCO2 of 64 pH of 7.30. Today considering the patient is on Nimbex I added fentanyl and 0.25 mcg/kg/h. And I switch his Decadron to Solu-Medrol at 60 mg IV push every 6 hours. Patient was intubated on 09/13 has been in the ICU since 09/13 he was actually admitted on 09/02 feeding gomez he is on HP20 mL per hour. Patient is sedated and paralyzed. Chest x-ray continues to show bilateral patchy infiltrates. Not much of a change noted. Patient was reevaluated today on 09/16/2020, remains in the ICU, intubated and mechanically ventilated. He is now on ventilator settings assist control rate of 3 to tell volume is 400 FiO2 80% and PEEP of 16. ABG showed a pO2 of 77 pCO2 of 68 pH of 7.28. Patient remains on propofol at 40, Nimbex at 1.2 fentanyl 0.5, IV fluid at KVO. FiO2 was decreased today from on the percent to 80%, and increase the flow rate to 65 L/m. Chest x-ray is showing no significant change. Patient remains fully sedated and paralyzed. He is on tube feeding using vital HP at 20 mL per hour. Electrolytes were reviewed potassium is 5.4. BUN is 55 creatinine 1.1, hence increase his IV fluid rate to 100 mL per hour. Bit of leukocytosis noted today, but improved compared to yesterday WBC count is 19.5 hemoglobin is 13.4. LDH continues on the rise to 081, and C-reactive protein is better at 1.5. Patient was reevaluated today on 09/17/2020, remains in the ICU, intubated mechanically ventilated, sedated, paralyzed, his ventilator settings are assist control rate of 32, tidal volume is 400 FiO2 65% and PEEP remains at 16. Peak airway pressure is 37, static pressures 27, chest x-ray continues to show by lateral patchy infiltrates consistent with COVID-19 pneumonia. ABG showed a pO2 of 64 pCO2 of 69 pH of 7.26. Hence his tidal volume was increased up to 420 7400. Patient will remain sedated. No plans to wean or extubated anytime soon. Patient remains on propofol at 40 Nimbex at 2 fentanyl 0.5 IV fluid at 100 mL per hour, he is on tube feeding 37/37 vital HP. Electrolytes are normal BUN is 58 creatinine is 1.08. Improving. LDH was 2080 yesterday. And C-reactive protein 1.5 Patient was reevaluated today on 09/18/2020, remains in the ICU intubated mechanically ventilated and sedated and paralyzed. Still requiring relatively high FiO2 of 65 and high PEEP of 16. ABG is marginal. He is on assist control rate of 34 tidal volume 420 FiO2 65% PEEP of 16. ABG showed a pO2 of 64 pCO2 of 61 pH of 7.32. Patient remains on propofol at 40 Nimbex at 0.2 and fentanyl at 0.5. Remains on tube feeding/vital HP at 37 mL per hour. Plan today to give the patient at least and Nimbex holiday if possible. Chest x-ray is basically unchanged. And his overall condition is about the same. WBC count is 14.9 hemoglobin is 12. Electrolytes showed elevated sodium of 146 hence the patient will be given free water and potassium of 5.6 we'll give a dose of Kayexalate. Renal profile showed a BUN of 54 creatinine 0.97, improving. Patient was reevaluated today on 09/19/2020, remains intubated and sedated, he is also paralyzed, remains on assist control rate of 32, tidal volume is 420 FiO2 65% and PEEP of 16. ABG showed a pO2 of 72 pCO2 of 63 pH of 7.32. His peak ai rway pressure is in the high 30s and plateau pressure is 31. Patient remains on IV fluid at 100 mL/h he is on Nimbex at 3, fentanyl at 1 on propofol at 40. He is on tube feeding using vital HP at goal. Today considering his sodium being elevated we have transitioned his IV fluids from 0.9 normal saline to D5W at 100 mL per hour and the patient will be receiving free water flushes via nasogastric tube. Chest x-ray is basically about the same, continues show by basilar patchy infiltrates, consistent with COVID-19 pneumonia, not much of a change is noted in the last couple of days. Hemodynamically gomez, the patient is stable, not requiring any pressors. Objective - Vital Signs Vital signs: Vital Signs Temp 100.1 F H 09/19/20 08:00 Pulse 58 L 09/19/20 10:00 Resp 32 H 09/19/20 10:00 BP 140/72 09/16/20 22:00 Pulse Ox 90 L 09/19/20 10:00 Intake & Output 09/18/20 09/19/20 09/19/20 18:59 06:59 18:59 Intake Total 2809.011 2435.979 776.860 Output Total 1245 1420 350 Balance 4808.318 2462.979 426.860 Weight 95.5 kg 95.5 kg Intake: IV 1236 1339 309 Pressure bag 36 39 9 Sodium Chloride 0.9% 1, 1200 1300 300 000 ml @ 100 mls/hr IV . Q10H [facility] Rx#:[id number] Intake, IV Titration 566.011 378.979 296.860 Amount Cisatracurium 200 mg In 193.358 200 14.212 Sodium Chloride 0.9% 180 ml @ 1 MCG/KG/MIN 5.61 mls/hr IV .Q24H [facility] Rx#: [id number] fentaNYL (PF). 1,000 mcg 88.319 78.979 84.238 In Sodium Chloride 0.9% 80 ml @ Per Protocol IV . Q0M [facility] Rx#:[id number] propofoL 1,000 mg In 284.334 100 198.41 Empty Bag 1 bag @ Titrate IV .Q0M [facility] Rx#: [id number] Tube Feeding 407 518 111 Other 600 200 60 Output: Urine 1245 1420 350 Stool 0 0 Other: Voiding Method Indwelling Catheter Indwelling Catheter Indwelling Catheter ABP, PAP, CO, CI - Last Documented Arterial Blood Pressure 141/53 - Exam GENERAL EXAM: Revealed 54-year-old male intubated and mechanically ventilated, sedated and paralyzed, in no distress. HEAD: Normocephalic. Atraumatic, endotracheal tube and orogastric tube is intact. EYES: PERRLA, EOMI, nonicteric.. NOSE: Clear with pink turbinates. THROAT: No erythema or exudates. NECK: No masses, no JVD. CHEST: No chest wall deformity. LUNGS: Crackles, and rhonchi noted bilaterally. CVS: S1 and S2 normal with no audible murmur, regular rhythm. ABDOMEN: No hepatosplenomegaly, normal bowel sounds, no guarding or rigidity. Musculoskeletal: No deformities. SKIN: No rashes CENTRAL NERVOUS SYSTEM: Could not assess. Because of paralysis and sedation. EXTREMITIES: No clubbing edema or cyanosis. Psychiatric: Unable to assess. - Labs CBC & Chem 7: 09/19/20 05:00 09/19/20 05:00 Labs: Abnormal Lab Results - Last 24 Hours (Table) 09/18/20 09/19/20 09/19/20 Range/Units 17:42 00:11 04:44 WBC (3.8-10.6) k/uL RBC (4.30-5.90) m/uL Hgb (13.0-17.5) gm/dL Hct (39.0-53.0) % Plt Count (150-450) k/uL Neutrophils # (1.3-7.7) k/uL Lymphocytes # (1.0-4.8) k/uL ABG pH 7.32 L (7.35-7.45) ABG pCO2 63 H (35-45) mmHg ABG pO2 72 L (83-108) mmHg ABG HCO3 32 H (21-25) mmol/L ABG Total CO2 34 H (19-24) mmol/L Sodium (137-145) mmol/L Chloride (98-107) mmol/L Carbon Dioxide (22-30) mmol/L BUN (9-20) mg/dL Glucose (74-99) mg/dL POC Glucose (mg/dL) 180 H 175 H (75-99) mg/dL Calcium (8.4-10.2) mg/dL 09/19/20 09/19/20 09/19/20 Range/Units 05:00 05:00 11:58 WBC 11.7 H (3.8-10.6) k/uL RBC 3.48 L (4.30-5.90) m/uL Hgb 11.1 L (13.0-17.5) gm/dL Hct 33.2 L (39.0-53.0) % Plt Count 100 L (150-450) k/uL Neutrophils # 10.1 H (1.3-7.7) k/uL Lymphocytes # 0.5 L (1.0-4.8) k/uL ABG pH (7.35-7.45) ABG pCO2 (35-45) mmHg ABG pO2 (83-108) mmHg ABG HCO3 (21-25) mmol/L ABG Total CO2 (19-24) mmol/L Sodium 149 H (137-145) mmol/L Chloride 114 H (98-107) mmol/L Carbon Dioxide 33 H (22-30) mmol/L BUN 52 H (9-20) mg/dL Glucose 176 H (74-99) mg/dL POC Glucose (mg/dL) 163 H (75-99) mg/dL Calcium 7.8 L (8.4-10.2) mg/dL Assessment and Plan Assessment: Impression: Acute hypoxic respiratory failure secondary to acute COVID-19 pneumonia with ARDS. Patient received toci, and convalescent plasma, remains on the COVID-19 cocktail. Remains on Lovenox 40 mg subcu daily. Remains on relatively high PEEP of 16, FiO2 remains at 65%. Elevated inflammatory markers secondary to above Benign essential hypertension Former smoker. Hypernatremia secondary to free water deficit. We will correct accordingly. Change main IV fluid to D5W and start free water flushes via orogastric tube. Hyperkalemia secondary to his underlying respiratory acidosis, improving. Recommendation:. Continue ventilatory support, no change today. Continue nutritional support. Change Solu-Medrol 60 mg IV push every 6 hours. Continue Lovenox at 40 mg subcu daily Continue the COVID-19 cocktail. Patient received convalescent plasma and toci Continue to monitor inflammatory markers. Start free water flushes and change main IV fluid to D5W for hypernatremia. Continue GI and DVT prophylaxis Patient remains critically ill, critical care time is over 30 minutes. Time with Patient: Greater than 30
--- NOTE | 2020-09-19 14:29 | P.PN ---
Subjective Progress Note Date: 09/19/20 This is a 54-year-old male was recently admitted with shortness of breath and cough episodes of diarrhea nausea and generalized body aches and fevers and was recently diagnosed with COVID-19 one week prior to hospitalization. Patient continues to be intubated and sedated on mechanical ventilator and being closely monitored in the ICU. Pulmonary following closely. Chest x-ray today shows stable patchy mid and lower lung infiltrates persist without significant change. D-dimer slightly trending down at 4.91 and white blood count is 19.5, hemoglobin is stable at 13.4, sodium is 140 with a potassium of 5.4 and current creatinine is 1.21. LDH elevated at 2080 and CRP slowly trending down at 1.5. Patient continues on mechanical vent and FiO2 titrated down to 65. Patient continues on Nimbex along with fentanyl and propofol for sedation. Patient to continue on IV steroids along with Lovenox and vitamin and zinc supplements. 09/17/2020 Patient is seen in follow-up this morning continues to be closely monitored in the ICU. Patient remains on mechanical ventilation and is currently sedated. Chest x-ray today shows patchy perihilar and basilar infiltrates persist with slight improvement suggested in the right lung base. D-dimer slowly trending down at 2.98 BMP within normal limits creatinine slightly improved at 1.08. Patient is maintained on vitamin and zinc supplements along with Lovenox and will continue with IV Solu-Medrol 60 mg every 6 hours. Pulmonary following closely. Lovenox has been adjusted to 40 mg subcutaneous daily. 09/18/2020 Patient continues to be closely monitored in the ICU continues to be on mechanical ventilation and currently sedated. Pulmonary following closely. Chest x-ray today shows bilateral multifocal and confluent and reticular opacities consistent with COVID-19 infection again noted with no significant change from one day previously. Oxygen saturations continue to be mid 80s to 90% with an FiO2 of 65 and a PEEP of 16 on the vent. Patient continues to be tachypneic. Patient is having intermittent low-grade fevers of 100.1 and 99.1. White blood count continues to trend down at 14.9 hemoglobin is 12.0, sodium is 146 with a potassium of 5.6 current creatinine is 0.97. Patient given a dose of Kayexalate for the potassium and will repeat a.m. labs. Patient is maintained on vitamin and zinc supplements along with IV Solu-Medrol and Lovenox and will continue. Continue with free water flushes for hypernatremia due to tube feeding as he continues to be on nutritional support via the orogastric tube. 09/19/2020 Patient is seen and evaluated and follow-up and continues to be closely monitored in the ICU. Patient continues to be intubated and sedated on mechanical ventilation. FiO2 slightly decreased to 60%. Chest x-ray today shows patchy mid and lower lung airspace disease which shows slight worsening on the right. White blood count and a downward trend at 11.7 although patient continues to have low-grade intermittent fevers. Sodium level is 149 and started on D5 with water at 100 mL per hour. Patient continues on IV steroids along with vitamin and zinc supplements and Lovenox 40 mg subcu daily. Patient also continues on Nimbex at this time. Will repeat labs in continue with daily chest x-rays. Review of systems: Unable to obtain as patient is currently intubated and sedated Active Medications Acetaminophen (Acetaminophen Tab 325 Mg Tab) 650 mg PO Q6HR PRN PRN Reason: Fever and/ or Pain Last Admin: 09/16/20 11:48 Dose: 650 mg Documented by: Albuterol Sulfate (Albuterol Hfa Inhaler) 2 puff INHALATION RT-QID PRN PRN Reason: Shortness Of Breath Last Admin: 09/04/20 17:46 Dose: 2 puff Documented by: Albuterol Sulfate (Albuterol Hfa Inhaler) 2 puff INHALATION RT-QID [facility] Last Admin: 09/19/20 12:07 Dose: 2 puff Documented by: Allopurinol (Allopurinol 300 Mg Tab) 300 mg PO DAILY [facility] [place] Last Admin: 09/19/20 08:32 Dose: 300 mg Documented by: Amlodipine Besylate (Amlodipine 10 Mg Tab) 10 mg PO DAILY [facility] [place] Last Admin: 09/19/20 08:33 Dose: 10 mg Documented by: Ascorbic Acid (Ascorbic Acid 500 Mg Tab) 500 mg PO BID [facility] [place] Last Admin: 09/19/20 08:33 Dose: 500 mg Documented by: Aspirin (Aspirin 81 Mg) 81 mg PO DAILY [facility] [place] Last Admin: 09/19/20 08:33 Dose: 81 mg Documented by: Atorvastatin Calcium (Atorvastatin 80 Mg Tab) 80 mg PO DAILY [facility] [place] Last Admin: 09/19/20 08:32 Dose: 80 mg Documented by: Chlorhexidine Gluconate (Chlorhexidine Gluconate 15 Ml Cup) 15 ml MUCOUS MEM BID [facility] [place] Last Admin: 09/19/20 08:32 Dose: 15 ml Documented by: Cholecalciferol (Cholecalciferol 25 Mcg (1000 Iu) Tablet) 125 mcg PO DAILY [facility] [place] Last Admin: 09/19/20 08:33 Dose: 125 mcg Documented by: Enoxaparin Sodium (Enoxaparin 40 Mg/0.4 Ml Syringe) 40 mg SQ DAILY [facility] [place] Last Admin: 09/19/20 08:33 Dose: 40 mg Documented by: Famotidine (Famotidine 20 Mg Tab) 20 mg PO BID [facility] [place] Last Admin: 09/19/20 08:33 Dose: 20 mg Documented by: Heparin Sodium (Porcine) (Heparin Sodium 1,000 Un/Ml (10ml Vl)) 0 unit IV PER PROTOCOL PRN; Protocol PRN Reason: Low PTT Last Admin: 09/03/20 17:35 Dose: 4,900 unit Documented by: Propofol 1,000 mg/ IV Solution 100 mls @ 0 mls/hr IV .Q0M [facility]; Protocol Last Admin: 09/19/20 12:33 Dose: 40 mcg/kg/min, 22.032 mls/hr Documented by: Cisatracurium Besylate 200 mg/ (Sodium Chloride) 200 mls @ 5.61 mls/hr IV .Q24H [facility] [place]; Protocol Last Titration: 09/19/20 09:20 Dose: 3 mcg/kg/min, 16.83 mls/hr Documented by: Fentanyl Citrate 1,000 mcg/ (Sodium Chloride) 100 mls @ 0 mls/hr IV .Q0M [facility] [place]; Protocol Last Admin: 09/19/20 08:48 Dose: 1 mcg/kg/hr, 9.24 mls/hr Documented by: Dextrose/Water (Dextrose 5%-Water Iv Soln) 1,000 mls @ 100 mls/hr IV .Q10H ONE Stop: 09/19/20 22:12 Last Admin: 09/19/20 12:33 Dose: 100 mls/hr Documented by: Insulin Aspart (Insulin Aspart (Novolog) 100 Unit/Ml Vial) 0 unit SQ Q6HR [facility] [place]; Protocol Last Admin: 09/19/20 12:08 Dose: 3 unit Documented by: Methylprednisolone Sodium Succinate (Methylprednisolone Sod Succi 125 Mg/2 Ml Vial) 60 mg IV Q6HR [facility] [place] Last Admin: 09/19/20 12:08 Dose: 60 mg Documented by: Metoprolol Tartrate (Metoprolol Tartrate 12.5 Mg Tab) 12.5 mg PO BID [facility] [place] Last Admin: 09/19/20 08:33 Dose: 12.5 mg Documented by: Nitroglycerin (Nitroglycerin Sl Tabs 0.4 Mg Tab) 0.4 mg SUBLINGUAL Q5M PRN PRN Reason: Chest Pain Last Admin: 09/07/20 03:35 Dose: 0.4 mg Documented by: Promethazine HCl (Promethazine Hcl 6.25 Mg/5 Ml Cup) 12.5 mg PO QID PRN PRN Reason: Cough Last Admin: 09/06/20 02:07 Dose: 12.5 mg Documented by: Zinc Sulfate (Zinc Sulfate 220 Mg Cap) 220 mg PO DAILY [facility] [place] Last Admin: 09/19/20 08:33 Dose: 220 mg Documented by: Objective - Vital Signs Vital signs: Vital Signs Temp 100.8 F H 09/19/20 12:00 Pulse 56 L 09/19/20 13:00 Resp 32 H 09/19/20 13:00 BP 140/72 09/16/20 22:00 Pulse Ox 88 L 09/19/20 13:00 Intake & Output 09/18/20 09/19/20 09/19/20 18:59 06:59 18:59 Intake Total 2809.011 2435.979 1414.673 Output Total 1245 1420 570 Balance 1727.664 0757.979 844.673 Weight 95.5 kg 95.5 kg Intake: IV 1236 1339 618 Pressure bag 36 39 18 Sodium Chloride 0.9% 1, 1200 1300 600 000 ml @ 100 mls/hr IV . Q10H [facility] Rx#:[id number] Intake, IV Titration 566.011 378.979 305.673 Amount Cisatracurium 200 mg In 193.358 200 14.212 Sodium Chloride 0.9% 180 ml @ 1 MCG/KG/MIN 5.61 mls/hr IV .Q24H [facility] Rx#: [id number] fentaNYL (PF). 1,000 mcg 88.319 78.979 84.238 In Sodium Chloride 0.9% 80 ml @ Per Protocol IV . Q0M [facility] Rx#:[id number] propofoL 1,000 mg In 284.334 100 207.223 Empty Bag 1 bag @ Titrate IV .Q0M [facility] Rx#: [id number] Tube Feeding 407 518 231 Other 600 200 260 Output: Urine 1245 1420 570 Stool 0 0 Other: Voiding Method Indwelling Catheter Indwelling Catheter Indwelling Catheter ABP, PAP, CO, CI - Last Documented Arterial Blood Pressure 121/53 - Exam Gen: This is a 54-year-old male currently intubated and sedated. Temp is 100.8F, pulse is 54, respirations are 32, blood pressure is 136/51, oxygen saturation is 89% with an FiO2 of 60 percent HEENT: Head is atraumatic, normocephalic. Pupils equal, round. Sclerae is an icteric. NECK: Supple. No JVD. No lymphadenopathy. No thyromegaly. LUNGS: diminished breath sounds bilaterally with some scattered rhonchi and crackles noted. Tachypneic. No intercostal retractions. HEART: S1, S2 are muffled ABDOMEN: Soft. Bowel sounds are present. No masses. No tenderness. EXTREMITIES: No pedal edema. No calf tenderness. NEUROLOGICAL: Unable to completely assess as patient is intubated and sedated on paralytics - Labs CBC & Chem 7: 09/19/20 05:00 09/19/20 05:00 Labs: Abnormal Lab Results - Last 24 Hours (Table) 09/18/20 09/19/20 09/19/20 Range/Units 17:42 00:11 04:44 WBC (3.8-10.6) k/uL RBC (4.30-5.90) m/uL Hgb (13.0-17.5) gm/dL Hct (39.0-53.0) % Plt Count (150-450) k/uL Neutrophils # (1.3-7.7) k/uL Lymphocytes # (1.0-4.8) k/uL ABG pH 7.32 L (7.35-7.45) ABG pCO2 63 H (35-45) mmHg ABG pO2 72 L (83-108) mmHg ABG HCO3 32 H (21-25) mmol/L ABG Total CO2 34 H (19-24) mmol/L Sodium (137-145) mmol/L Chloride (98-107) mmol/L Carbon Dioxide (22-30) mmol/L BUN (9-20) mg/dL Glucose (74-99) mg/dL POC Glucose (mg/dL) 180 H 175 H (75-99) mg/dL Calcium (8.4-10.2) mg/dL 09/19/20 09/19/20 09/19/20 Range/Units 05:00 05:00 11:58 WBC 11.7 H (3.8-10.6) k/uL RBC 3.48 L (4.30-5.90) m/uL Hgb 11.1 L (13.0-17.5) gm/dL Hct 33.2 L (39.0-53.0) % Plt Count 100 L (150-450) k/uL Neutrophils # 10.1 H (1.3-7.7) k/uL Lymphocytes # 0.5 L (1.0-4.8) k/uL ABG pH (7.35-7.45) ABG pCO2 (35-45) mmHg ABG pO2 (83-108) mmHg ABG HCO3 (21-25) mmol/L ABG Total CO2 (19-24) mmol/L Sodium 149 H (137-145) mmol/L Chloride 114 H (98-107) mmol/L Carbon Dioxide 33 H (22-30) mmol/L BUN 52 H (9-20) mg/dL Glucose 176 H (74-99) mg/dL POC Glucose (mg/dL) 163 H (75-99) mg/dL Calcium 7.8 L (8.4-10.2) mg/dL Assessment and Plan Assessment: -Acute hypoxic respiratory failure: Secondary to Covid 19 -Lactic acidosis, resolved -Hypernatremia -Hypertension -Ruled out PE -Elevated troponins secondary to type II ID secondary to hypoxemia -History of gastroesophageal reflux disease -GI prophylaxis with Pepcid -DVT prophylaxis with Lovenox -Full code Recommendations and discussion: Recommend to continue with current medications, management, and symptomatic treatment. Continued on IV Solu-Medrol along with Lovenox and vitamin and zinc supplements. Patient continues to be intubated and sedated with paralytics and maintained on Nimbex. Bin Filler following closely. Patient has recently received Tocilizumab and 1 unit of convalescent plasma as he was outside of the window for Remdesivir. Blood sugars elevated and will continue with Accu-Cheks and sliding scale every 6 hours. Chest x-ray today shows patchy mid and lower lung airspace disease shows slight worsening on the right. Pulmonary following closely. Sodium today is 149 and will change IV fluids to D5 in water and repeat labs. Continue with free water flushes via orogastric tube and tube feedings as sodium continues to be elevated. Due to multiple complex medical issues, prognosis remains extremely guarded. Further recommendations to follow.
[2020-09-19 17:42] LABS: Glucose,Whole Blood 203 mg/dL (75-99)
[2020-09-19 23:26] LABS: Glucose,Whole Blood 257 mg/dL (75-99)
[2020-09-20] MEDS: fentaNYL (PF). 1,000 MCG in SODIUM CHLORIDE 0.9% 80 ML IV SCH ×2 (02:18→13:28)
[2020-09-20 04:12] LABS: ABG Base Excess 5.4 mmol/L; ABG HCO3 32 mmol/L (21-25); ABG Oxygen Saturation 94.1 % (94-97); ABG PCO2 62 mmHg (35-45); ABG PH 7.32 (7.35-7.45); ABG PO2 69 mmHg (83-108); ABG TCO2 33 mmol/L (19-24); Allen Test Performed? Yes
[2020-09-20] MEDS: methylPREDNISolone SOD SUCCI 125 MG/2 ML VIAL IV SCH ×3 (06:10→17:37)
[2020-09-20 06:14] LABS: Basophils % (A) 0 %; Eosinophils % (A) 0 %; HCT 31.9 % (39.0-53.0); HGB 10.7 gm/dL (13.0-17.5); Lymphocytes # (A) 0.7 k/uL (1.0-4.8); Lymphocytes % (A) 6 %; MCH 31.8 pg (25.0-35.0); MCHC 33.4 g/dL (31.0-37.0); MCV 95.2 fL (80.0-100.0); Mean Platelet Volume 9.5; Monocytes # (A) 0.7 k/uL (0-1.0); Monocytes % (A) 6 %; Neutrophils # (A) 10.1 k/uL (1.3-7.7); Neutrophils % (A) 86 %; Platelet Count 109 k/uL (150-450); RBC 3.35 m/uL (4.30-5.90); RDW 15.1 % (11.5-15.5); WBC 11.8 k/uL (3.8-10.6)
[2020-09-20 06:29] LABS: African American GFR (CKD) >90 (>60 ml/min/1.73 sqM); Anion Gap 0 mmol/L; Blood Urea Nitrogen 51 mg/dL (9-20); Calcium 7.9 mg/dL (8.4-10.2); Carbon Dioxide 33 mmol/L (22-30); Chloride 112 mmol/L (98-107); Glucose 233 mg/dL (74-99); Non-African American GFR(CKD) 81 (>60 ml/min/1.73 sqM); Potassium 4.9 mmol/L (3.5-5.1); Sodium 145 mmol/L (137-145)
[2020-09-20] MEDS: INSULIN ASPART (NovoLOG) 100 UNIT/ML VIAL SQ SCH ×3 (06:50→17:36)
--- NOTE | 2020-09-20 07:03 | XR ---
EXAMINATION TYPE: XR chest 1V portable DATE OF EXAM: 09/20/2020 COMPARISON: Chest x-ray 09/19/2020 HISTORY: Intubated TECHNIQUE: Single frontal view of the chest is obtained. FINDINGS: Endotracheal tube, orogastric tube, left-sided PICC line are all again noted, pleural pare nchymal changes show no interval change. Cardiac mediastinal silhouette is stable. No pneumothorax or sizable effusion. IMPRESSION: No significant interval change, correlate for pneumonia, edema, ARDS
[2020-09-20] MEDS: ALBUTEROL HFA INHALER INHALATION SCH ×4 (07:20→19:01)
[2020-09-20] MEDS: CISATRACURIUM 200 MG in SODIUM CHLORIDE 0.9% 180 ML IV SCH (07:58)
[2020-09-20] MEDS: CHLORHEXIDINE GLUCONATE 15 ML CUP MUCOUS MEM SCH ×2 (08:39→21:16)
[2020-09-20] MEDS: CHOLECALCIFEROL 25 MCG (1000 IU) TABLET PO SCH (08:39)
[2020-09-20] MEDS: ATORVASTATIN 80 MG TAB PO SCH (08:41)
[2020-09-20] MEDS: ASPIRIN 81 MG PO SCH (08:41)
[2020-09-20] MEDS: ASCORBIC ACID 500 MG TAB PO SCH ×2 (08:41→21:16)
[2020-09-20] MEDS: ZINC SULFATE 220 MG CAP PO SCH (08:41)
[2020-09-20] MEDS: amLODIPine 10 MG TAB PO SCH (08:42)
[2020-09-20] MEDS: FAMOTIDINE 20 MG TAB PO SCH ×2 (08:42→21:16)
[2020-09-20] MEDS: ENOXAPARIN 40 MG/0.4 ML SYRINGE SQ SCH (08:42)
--- NOTE | 2020-09-20 10:04 | P.PN ---
Subjective Progress Note Date: 09/20/20 Principal diagnosis: Acute hypoxic respiratory failure secondary to COVID-19 pneumonia and ARDS. 54-year-old white male patient who is an ex smoker, carries [id number] smoking history quit smoking 1 year ago in May, history of hypertension and gout who sees Dr. Contreras, presented to the emergency department on 08/02/2020 with complaints of worsening shortness of breath, cough, and patient was diagnosed with Covid 19 one week ago, was tested at [facility] per Dr. Contreras's order. 2 weeks ago he had symptoms of flulike illness, sore throat, shortness of breath, weakness, muscle aches which progressively became worse, and patient developed worsening shortness of breath and had difficulty breathing and ambulating at home. He was placed on Decadron [address] Contreras and he has 1-1/2 days worth left of it. Chest x-ray in the emergency department showed bilateral interstitial pneumonia. White blood cell count was 33.1, d-dimer was greater than 35.2, CO2 is 16, the rest of electrolytes were unremarkable, B1 is 35 creatinine is 1.04, plasma lactic acid is 4.5, patient was given IV fluids and lactic acid came down to 1.8, total bilirubin was 1.6, AST is 107, ALT is 48, alkaline phosphatase is 114, LDH is 5924, first troponin was 4.190, and the second one went up to 6.960. CRP is 180.3, pro-calcitonin level is 0.33, urinalysis showed 1+ protein, but no definite sign of infection, pulse ox is 86 on room air, patient has significant shortness of breath, and was placed on BiPAP support, currently with pressures of 12/6, and FiO2 of 100% on which he remains this morning, he is afebrile, hemodynamically he is stable, she was started on IV Decadron, we'll start him on intermediate dose of Lovenox 50 mg every 12 hours, CTA chest shows no evidence of pulmonary embolism, and extensive pulmonary infiltrates that are mostly interstitial consistent with severe interstitial pneumonia. Progress note dated 09/04/2020. 54-year-old male, admitted with a diagnosis of COVID 19 pneumonitis. Currently, he is on BiPAP at 12/6 and 90%. FiO2 will be dropped down to 80%. In addition, he is getting saline at 75 mL an hour. The patient's doing better today. He states that he feels better. He still short of breath with activity. I did tell him today to make sure he moves around in bed when he is laying in bed. White count 29.3, hemoglobin 14.6, hematocrit 42.7, platelet count 140,000. D- dimer greater than 34.10. Sodium 136, potassium 5.1, chlorides 105, CO2 25, anion gap 6, BUN 39, creatinine 0.9. LDH is 3965. C-reactive protein 143. Chest x-ray shows a worsening pattern of bilateral airspace disease. Progress note dated 09/05/2020. 54-year-old male, admitted with a diagnosis of COVID 19 pneumonitis. He remains on BiPAP with an FiO2 of 80%. Settings included an IPAP 12, EPAP 6. The patient states that he feels a bit better. He is getting saline at 75 mL an hour. He feels like he is breathing is improved. He does know to move about in bed. No new laboratory data today. His most recent chest x-ray was from yesterday and was reviewed. The patient's on appropriate medications. Progress note dated 09/06/2020. 54-year-old male, seen again today. The patient is on BiPAP, settings of IPAP 12, EPAP 6, and 90%. He is also getting saline at 75 mL an hour. Was admitted with a diagnosis of acute hypoxemic respiratory failure secondary to COVID 19 pneumonia. The patient feels about the same. No better or no worse. He will have a chest x-ray tomorrow. Labs are reviewed. White count 19.3, hemoglobin 15, hematocrit 43.9, and platelet count 92,000. Sodium 135, potassium 4.9, chlorides 109, CO2 20, anion gap 6, BUN 34, and creatinine 0.92. There is no recent chest x-ray to review. The patient is seen today 09/07/2020 in follow-up on the selective care unit. He is currently resting comfortably in bed. States he is doing a little better today compared to yesterday. He is still requiring BiPAP support 12/6 and 100% FiO2. Chest x-ray reveals stable bilateral lung infiltrates. Blood glucose 163. He remains on bronchodilators, vitamin supplements, dexamethasone, Lovenox. 0.9 normal saline at 75 ML's per hour. On 09/08/2020, the patient is being seen in follow-up on the [facility] units. The patient is a 54-year-old male patient with Covid 19 related pneumonia and the patient has diffuse stable by the pulmonary infiltrates. The patient remains on Decadron. The patient is also on Lovenox 40 mg subcu every 12 hours. The patient is also requiring BiPAP for respiratory support at a pressure of 12/6 cm of water and FiO2 of 100%. The patient is able to generate a tidal volume of 800 mL of the respiratory rate of 24 and a minute ventilation of 23 L. The patient Has elevated inflammatory markers and the last time the markers were checked were on 09/04/2020 with an LDH of 3965 and a CRP of 142. Levels will need to be rechecked. The d-dimer was above 34. The LDH level remains elevated at 3911. D-dimer is 24.6. The patient is also on IV fluids with normal saline at the rate of 75 mL an hour. The patient is on Decadron 6 because IV every 24 hours. The patient is also on Lovenox 40 mg subcu every 12 hours. His current BMI 31.5. On 09/09/2020, the patient is being seen for a follow-up. The patient continues to be on a BiPAP at a pressure of 12/6 cm of water with an FiO2 of 100%. The patient is awake and he requires assistance to be moved around. His tidal volume is in the order of 800 mL which is comparable to yesterday. A repeat chest x-ray was done and it shows some limited improvement in the bilateral pulmonary infiltrates. the patient remains on Decadron and the dose is currently at 60 mg IV every 12 hours. inflammatory markers are elevated with an LDH level of 3 911 and the CRP is 22.5. His d-dimer is still elevated at 24.6 and the patient is on Lovenox at a dose of 40 mg subcu every 12 hours.. On his problem continue to be the patient's hypoxemia, Covid 19 related pneumonia and global weakness. Unfortunately, the patient is unable to eat as the patient desaturates significantly was taken off the BiPAP. 09/10/2020 the patient remains BiPAP dependent at the pressure of 12/6 cm of water. His FiO2 is still 100%. He was still able to generate adequate tidal volumes while being on a BiPAP. He has had a PICC line yesterday as the patient was not meeting his caloric requirements and I was also contemplating the possibility of TPN. His chest x-ray remains unchanged with diffuse bilateral infiltrates consistent with Covid 19 related pneumonia. His blood work is showing a d-dimer of 24 from 2 days ago. Electrolytes are normal, and no new inflammatory markers. The current pulse ox is 92% on a BiPAP and the patient remains on Decadron 6 mg IV every 12 hours. 09/11/2020, the patient remains on a BiPAP at a pressure of 12/6 and FiO2 of 100%. He is quite lethargic. He is in mild degree of respiratory distress even at rest while on the BiPAP. Current pulse ox is 89%. A PICC line was inserted yesterday and the patient was also started on TPN for nutritional support knowing that he was able to eat and he was not meeting his caloric requirements. His d-dimer is 15. The patient is on Lovenox 50 mg subcu every 12 hours. The patient is also receiving Decadron 6 mg IV 12 hours. Current pulse ox is around 89%. No major changes condition since yesterday. No other new labs otherwise. His resting in bed comfortably. He is generating tidal volumes above >600cc with respiratory rate in the mid 20s. He had no signs of any fluid overload. Mentation is preserved. Looks lethargic. He is able to answer questions and following commands. No other significant issues otherwise for now. I will today's condition is essentially stable since yesterday. 09/12/2020 the patient remains on BiPAP 12/6 cm of water with an FiO2 of 100%. Condition is essentially the same and unchanged compared to yesterday. The patient is currently on a pulse ox of 94% on above-mentioned BiPAP setting. He remains on Decadron 6 mg IV every 12 hours. He also is on Lovenox 50 mg subcu every 12 hours. He has an LDH level of 5040 at a CRP of 8.2. His inflammatory markers were obtained yesterday and they were quite elevated. He is still able to generate tidal volumes above 500 and his respiratory rate currently is in the 00s for now. Chest x-ray is consistent with diffuse bilateral pulmonary infiltrates. He has a PICC line in his left upper extremity and the patient is receiving TPN for nutritional support. As mentioned, he remains weak and lethargic. He is arousable and follows commands and answering questions. 09/13/2020, the patient got transferred to the intensive care unit where the patient got intubated and placed on a mechanical ventilator. Note that the patient was maintaining relatively fine on the BiPAP and ultimately desaturates., Became more short of breath and unresponsive in the blood. Showed significant hypoxemia and he had to come in to the ICU where he was intubated and placed on a mechanical ventilator. At this point and he is sedated with propofol running at 50 mcg/kg per minute and the patient is also paralyzed with Nimbex at 3 mcg/kg per minute. He is currently on assist control mode at the rate of 32 with a tidal volume of 400 and FiO2 of 1% with a PEEP of 15. The blood gases post intubation showed a pH of 7.22 and a pCO2 of 61 and pO2 of 89. His chest x-ray showing adequate positioning of ET tube. He has diffuse bilateral pulmonary infiltrates consistent with Covid 19 related p neumonia. Peak airway pressure 38. Static pressures 34. He is well rested and paralyzed for now. His BP currently is running at 156/59 and the patient was quite hypertensive prior to his intubation. His blood pressure came up to 182/110 and currently it's more stable. Labs are still pending for now. Meanwhile, the patient remains on Decadron 6 mg IV every 12 hours. Is also on Lovenox 40 mg subcu twice a day. He was receiving TPN for nutritional support as the patient was unable to take any form of oral intake as he was very much BiPAP dependent. TPN will be discontinued and the patient will be transitioned to enteral feeding note that he is currently intubated on a mechanical venti lator. A central line was also inserted. IV fluids are running at the rate of 20 mL an hour of normal saline. TPN Is currently running at 90 mL an hour. 09/14/2020, the patient is intubated on a mechanical ventilator in the intensive care unit. The patient currently is sedated and paralyzed. Propofol is running at 40 mcg/kg per minute and the Nimbex is running at 1.8 mcg/kg per minute. He is adequately sedated and paralyzed. He is still assist-control mode of mechanical ventilation at the rate of 32 with a tidal volume of 400 and FiO2 of 100% and a PEEP of 15. His blood gases from today showed a pH of 7.29 and pCO2 of 62 and pO2 of 86. We are allowing permissive hypercapnia. The peak and static pressures today are 14 and 34 respectively. His chest x-ray from today showing diffuse bilateral pulmonary infiltrates more so in the lower lobes and there is extensive consolidation of the lower lobes bilaterally. ET tube is at the level of the aortic knob. NG tube is in place. The patient remains on Decadron and currently is at a dose of 6 mg IV every 12 hours. In terms of his blood work, his inflammatory markers show a drop in the LDH level which is down to 294 and a CRP level is down to 5.2. D-dimer from a few days ago was 15.6 and the patient remains on Lovenox at a dose of 40 mg subcu every 12 hours. His TPN has been discontinued and the patient was switched enteral feeding and the patient is currently on vital high protein at the rate of 20 mL an hour which is at goal for now. IV fluids running at 20 mL an hour. He is hemodynamically stable. His overall fluid balance has been +1.6 L over the past 24 hours. Note that this patient was intubated yesterday after failing BiPAP for several days. He was intubated on 08/12/2020. Family is aware. Patient was reevaluated today on 09/15/2020, remains intubated and mechanically ventilated. Patient is presently on assist control rate of 52 tidal volume is 400 FiO2 at 90% PEEP is 15 ABG showed a pO2 of 77 pCO2 of 64 pH of 7.30. His peak airway pressure is 47 static pressure is 43. Attempted to adjust the PEEP higher, however he static pressure was getting much higher. Hence The PEEP at 15. And I adjusted the flow rate down to 60. He is on multiple drips including Nimbex at 1.5 mcg/kg/minute. he is on propofol at 40 mcg/kg per minute. Patient remains on permissive hypercapnia with a pCO2 of 64 pH of 7.30. Today considering the patient is on Nimbex I added fentanyl and 0.25 mcg/kg/h. And I switch his Decadron to Solu-Medrol at 60 mg IV push every 6 hours. Patient was intubated on 09/13 has been in the ICU since 09/13 he was actually admitted on 09/02 feeding gomez he is on HP20 mL per hour. Patient is sedated and paralyzed. Chest x-ray continues to show bilateral patchy infiltrates. Not much of a change noted. Patient was reevaluated today on 09/16/2020, remains in the ICU, intubated and mechanically ventilated. He is now on ventilator settings assist control rate of 3 to tell volume is 400 FiO2 80% and PEEP of 16. ABG showed a pO2 of 77 pCO2 of 68 pH of 7.28. Patient remains on propofol at 40, Nimbex at 1.2 fentanyl 0.5, IV fluid at KVO. FiO2 was decreased today from on the percent to 80%, and increase the flow rate to 65 L/m. Chest x-ray is showing no significant change. Patient remains fully sedated and paralyzed. He is on tube feeding using vital HP at 20 mL per hour. Electrolytes were reviewed potassium is 5.4. BUN is 55 creatinine 1.1, hence increase his IV fluid rate to 100 mL per hour. Bit of leukocytosis noted today, but improved compared to yesterday WBC count is 19.5 hemoglobin is 13.4. LDH continues on the rise to 081, and C-reactive protein is better at 1.5. Patient was reevaluated today on 09/17/2020, remains in the ICU, intubated mechanically ventilated, sedated, paralyzed, his ventilator settings are assist control rate of 32, tidal volume is 400 FiO2 65% and PEEP remains at 16. Peak airway pressure is 37, static pressures 27, chest x-ray continues to show by lateral patchy infiltrates consistent with COVID-19 pneumonia. ABG showed a pO2 of 64 pCO2 of 69 pH of 7.26. Hence his tidal volume was increased up to 420 7400. Patient will remain sedated. No plans to wean or extubated anytime soon. Patient remains on propofol at 40 Nimbex at 2 fentanyl 0.5 IV fluid at 100 mL per hour, he is on tube feeding 37/37 vital HP. Electrolytes are normal BUN is 58 creatinine is 1.08. Improving. LDH was 2080 yesterday. And C-reactive protein 1.5 Patient was reevaluated today on 09/18/2020, remains in the ICU intubated mechanically ventilated and sedated and paralyzed. Still requiring relatively high FiO2 of 65 and high PEEP of 16. ABG is marginal. He is on assist control rate of 34 tidal volume 420 FiO2 65% PEEP of 16. ABG showed a pO2 of 64 pCO2 of 61 pH of 7.32. Patient remains on propofol at 40 Nimbex at 0.2 and fentanyl at 0.5. Remains on tube feeding/vital HP at 37 mL per hour. Plan today to give the patient at least and Nimbex holiday if possible. Chest x-ray is basically unchanged. And his overall condition is about the same. WBC count is 14.9 hemoglobin is 12. Electrolytes showed elevated sodium of 146 hence the patient will be given free water and potassium of 5.6 we'll give a dose of Kayexalate. Renal profile showed a BUN of 54 creatinine 0.97, improving. Patient was reevaluated today on 09/19/2020, remains intubated and sedated, he is also paralyzed, remains on assist control rate of 32, tidal volume is 420 FiO2 65% and PEEP of 16. ABG showed a pO2 of 72 pCO2 of 63 pH of 7.32. His peak ai rway pressure is in the high 30s and plateau pressure is 31. Patient remains on IV fluid at 100 mL/h he is on Nimbex at 3, fentanyl at 1 on propofol at 40. He is on tube feeding using vital HP at goal. Today considering his sodium being elevated we have transitioned his IV fluids from 0.9 normal saline to D5W at 100 mL per hour and the patient will be receiving free water flushes via nasogastric tube. Chest x-ray is basically about the same, continues show by basilar patchy infiltrates, consistent with COVID-19 pneumonia, not much of a change is noted in the last couple of days. Hemodynamically gomez, the patient is stable, not requiring any pressors. Reevaluated today on 09/20/2020, patient remains intubated and sedated and mechanically ventilated and paralysis. On assist control rate of 32 tidal volume 420 FiO2 60% PEEP of 16. ABG showed a pO2 of 69 pCO2 of 62 pH of 7.32. Chest x-ray is basically about the same continues to by basilar patchy infiltrates. Remains on propofol at 20 Nimbex at 3 fentanyl at 1 D5W at 100 mL per hour. Remains on tube feeding. He is also receiving free water flushes. He is on enteral feeding using vital HP at 40 mL per hour. CBC is relatively normal hemoglobin is 10.7. Electrolytes sodium remains elevated at 145, however improving from 149 yesterday. BUN is 51 creatinine 1.03. Calcium is 7.9. No inflammatory markers were ordered today. Objective - Vital Signs Vital signs: Vital Signs Temp 99.0 F 09/20/20 08:00 Pulse 53 L 09/20/20 09:00 Resp 32 H 09/20/20 09:00 BP 140/72 09/16/20 22:00 Pulse Ox 89 L 09/20/20 09:00 Intake & Output 09/19/20 09/20/20 09/20/20 18:59 06:59 18:59 Intake Total 2487.054 3064.551 543 Output Total 1030 1385 100 Balance 1163.161 3865.551 443 Weight 95.5 kg 96.8 kg Intake: IV 1133 1339 103 Dextrose 5% in Water 1, 700 1300 100 000 ml @ 100 mls/hr IV . Q10H ONE Rx#:[id number] Pressure bag 33 39 3 Sodium Chloride 0.9% 1, 400 000 ml @ 100 mls/hr IV . Q10H [facility] Rx#:[id number] Intake, IV Titration 463.054 465.551 200 Amount Cisatracurium 200 mg In 14.212 180.081 200 Sodium Chloride 0.9% 180 ml @ 1 MCG/KG/MIN 5.61 mls/hr IV .Q24H [facility] Rx#: [id number] fentaNYL (PF). 1,000 mcg 160.468 85.47 In Sodium Chloride 0.9% 80 ml @ Per Protocol IV . Q0M [facility] Rx#:[id number] propofoL 1,000 mg In 288.374 200 Empty Bag 1 bag @ Titrate IV .Q0M [facility] Rx#: [id number] Oral 100 Tube Feeding 431 560 40 Other 460 600 200 Output: Urine 1030 1385 100 Stool 0 0 Other: Voiding Method Indwelling Catheter Indwelling Catheter ABP, PAP, CO, CI - Last Documented Arterial Blood Pressure 152/57 - Exam GENERAL EXAM: Revealed 54-year-old male intubated and mechanically ventilated, paralyzed and sedated HEAD: Normocephalic. Atraumatic, endotracheal tube and orogastric tube is intact. EYES: PERRLA, EOMI, nonicteric.. NOSE: Clear with pink turbinates. THROAT: No erythema or exudates. NECK: No masses, no JVD. CHEST: No chest wall deformity. LUNGS: Crackles, and rhonchi noted bilaterally. CVS: S1 and S2 normal with no audible murmur, regular rhythm. ABDOMEN: No hepatosplenomegaly, normal bowel sounds, no guarding or rigidity. Musculoskeletal: No deformities. SKIN: No rashes CENTRAL NERVOUS SYSTEM: Could not assess. Because of paralysis and sedation. EXTREMITIES: No clubbing edema or cyanosis. Psychiatric: Unable to assess. - Labs CBC & Chem 7: 09/20/20 05:50 09/20/20 05:50 Labs: Abnormal Lab Results - Last 24 Hours (Table) 09/19/20 09/19/20 09/19/20 Range/Units 11:58 17:40 23:25 WBC (3.8-10.6) k/uL RBC (4.30-5.90) m/uL Hgb (13.0-17.5) gm/dL Hct (39.0-53.0) % Plt Count (150-450) k/uL Neutrophils # (1.3-7.7) k/uL Lymphocytes # (1.0-4.8) k/uL ABG pH (7.35-7.45) ABG pCO2 (35-45) mmHg ABG pO2 (83-108) mmHg ABG HCO3 (21-25) mmol/L ABG Total CO2 (19-24) mmol/L Chloride (98-107) mmol/L Carbon Dioxide (22-30) mmol/L BUN (9-20) mg/dL Glucose (74-99) mg/dL POC Glucose (mg/dL) 163 H 203 H 257 H (75-99) mg/dL Calcium (8.4-10.2) mg/dL 09/20/20 09/20/20 09/20/20 Range/Units 04:06 05:50 05:50 WBC 11.8 H (3.8-10.6) k/uL RBC 3.35 L (4.30-5.90) m/uL Hgb 10.7 L (13.0-17.5) gm/dL Hct 31.9 L (39.0-53.0) % Plt Count 109 L (150-450) k/uL Neutrophils # 10.1 H (1.3-7.7) k/uL Lymphocytes # 0.7 L (1.0-4.8) k/uL ABG pH 7.32 L (7.35-7.45) ABG pCO2 62 H (35-45) mmHg ABG pO2 69 L (83-108) mmHg ABG HCO3 32 H (21-25) mmol/L ABG Total CO2 33 H (19-24) mmol/L Chloride 112 H (98-107) mmol/L Carbon Dioxide 33 H (22-30) mmol/L BUN 51 H (9-20) mg/dL Glucose 233 H (74-99) mg/dL POC Glucose (mg/dL) (75-99) mg/dL Calcium 7.9 L (8.4-10.2) mg/dL Assessment and Plan Assessment: Impression: Acute hypoxic respiratory failure secondary to acute COVID-19 pneumonia with ARDS. Patient received toci, and convalescent plasma, remains on the COVID-19 cocktail. Remains on Lovenox 40 mg subcu daily. Remains on relatively high PEEp, FiO2 is 60% Elevated inflammatory markers secondary to above Benign essential hypertension Former smoker. Hypernatremia secondary to free water deficit. Improving. Sodium today is 145. Hyperkalemia secondary to his underlying respiratory acidosis, resolved. Recommendation:. Continue ventilatory support, no change today. Continue nutritional support. Change Solu-Medrol 60 mg IV push every 6 hours. Continue Lovenox at 40 mg subcu daily Continue the COVID-19 cocktail. Patient received convalescent plasma and toci Start free water flushes monitor his hypernatremia and correct accordingly. Continue GI and DVT prophylaxis Patient remains critically ill, critical care time is over 30 minutes. Time with Patient: Greater than 30
[2020-09-20] MEDS: allopurinoL 300 MG TAB PO SCH (10:15)
[2020-09-20] MEDS: METOPROLOL TARTRATE 12.5 MG TAB PO SCH ×2 (10:32→21:16)
[2020-09-20 12:02] LABS: Glucose,Whole Blood 239 mg/dL (75-99)
[2020-09-20] MEDS ORDERED: INSULIN DETEMIR (LEVEMIR) 100 UNIT/ML SYR SQ ONE (14:00)
--- NOTE | 2020-09-20 17:23 | PN ---
PROGRESS NOTE DATE OF SERVICE: 09/20/2020 This 54-year-old gentleman who was admitted with acute hypoxic respiratory failure secondary to Covid-19, is being closely monitored. The patient is on mechanical ventilation. The patient's blood sugar is elevated. Troponin is elevated at the time of admission, indicating acute non-ST segment elevation myocardial infarction. Two-D echo with Doppler was normal. The patient is on vent settings [address] Arreola is following the patient closely. Past medical history reviewed. The patient also had a D5 drip to treat the hyponatremia. REVIEW OF SYSTEMS: Could not be taken. CURRENT MEDICATIONS: Reviewed and include, doses reviewed, Tylenol, Ventolin, Zyloprim, Norvasc, Lipitor, Peridex, and doses and other medications reviewed. PHYSICAL EXAM: Patient is alert and oriented times three. Pulse 59, blood pressure is 120/52, respiration 30. Temperature normal. Pulse ox 98% on mechanical ventilation. HEENT: Conjunctivae normal. NECK: No JVD. CARDIOVASCULAR: S1, S2. RESPIRATORY SYSTEM: Breath sounds diminished at the bases. A few scattered rhonchi. ABDOMEN: Soft. Nontender. NERVOUS SYSTEM: Mechanically sedated. LAB STUDIES: WBC 11.8, hemoglobin 10.7, sodium 140, potassium 4.9. ASSESSMENT: 1. Acute hypoxic respiratory failure secondary to Covid-19. 2. Acute lactic acidosis. 3. Hypernatremia. 4. Hypertension. 5. Elevated random glucose. 6. Rule out pulmonary embolism. 7. Elevated troponin, possibly secondary to type 2 acute myocardial infarction secondary to hypoxemia. 8. History of gastroesophageal reflux disease. 9. Gastrointestinal prophylaxis. 10.Deep vein thrombosis prophylaxis. 11.FULL CODE. RECOMMENDATIONS AND DISCUSSION: I recommend to continue current management and continue with symptomatic treatment. Continue with bronchodilators. Continue mechanical ventilation. Closely follow with Dr. Arreola. Lantus 10 units currently. If the sugar is elevated consistently, daily Lantus dose may be advised, but currently patient is on D5 drip which is likely to be stopped once sodium is normal. Continue to monitor rest of medications and the patient's IV steroids. Dr. Arreola is following the patient closely. Further weaning recommendations per Dr. Arreola. Further recommendations to follow. MMODL / IJN: [id number] /
[2020-09-20 21:02] LABS: Glucose,Whole Blood 245 mg/dL (75-99)
[2020-09-21 00:37] LABS: Glucose,Whole Blood 265 mg/dL (75-99)
[2020-09-21] MEDS: methylPREDNISolone SOD SUCCI 125 MG/2 ML VIAL IV SCH ×5 (00:54→23:00)
[2020-09-21] MEDS: INSULIN ASPART (NovoLOG) 100 UNIT/ML VIAL SQ SCH ×4 (00:54→17:51)
[2020-09-21] MEDS: fentaNYL (PF). 1,000 MCG in SODIUM CHLORIDE 0.9% 80 ML IV SCH ×3 (00:55→22:35)
[2020-09-21 04:55] LABS: ABG Base Excess 5.4 mmol/L; ABG HCO3 32 mmol/L (21-25); ABG Oxygen Saturation 92.3 % (94-97); ABG PCO2 62 mmHg (35-45); ABG PH 7.32 (7.35-7.45); ABG PO2 65 mmHg (83-108); ABG TCO2 34 mmol/L (19-24); Allen Test Performed? Yes
[2020-09-21 05:26] LABS: Glucose,Whole Blood 256 mg/dL (75-99)
[2020-09-21 05:34] LABS: Basophils # (A) 0.1 k/uL (0-0.2); Basophils % (A) 0 %; Eosinophils % (A) 0 %; HCT 31.6 % (39.0-53.0); HGB 10.8 gm/dL (13.0-17.5); Lymphocytes # (A) 0.7 k/uL (1.0-4.8); Lymphocytes % (A) 6 %; MCH 32.2 pg (25.0-35.0); MCHC 34.1 g/dL (31.0-37.0); MCV 94.6 fL (80.0-100.0); Mean Platelet Volume 9.5; Monocytes # (A) 0.8 k/uL (0-1.0); Monocytes % (A) 7 %; Neutrophils # (A) 10.2 k/uL (1.3-7.7); Neutrophils % (A) 86 %; Platelet Count 129 k/uL (150-450); RBC 3.34 m/uL (4.30-5.90); RDW 15.1 % (11.5-15.5); WBC 11.9 k/uL (3.8-10.6)
[2020-09-21 05:45] LABS: African American GFR (CKD) >90 (>60 ml/min/1.73 sqM); Anion Gap 1 mmol/L; Blood Urea Nitrogen 51 mg/dL (9-20); Calcium 7.9 mg/dL (8.4-10.2); Carbon Dioxide 33 mmol/L (22-30); Chloride 106 mmol/L (98-107); Glucose 237 mg/dL (74-99); Non-African American GFR(CKD) >90 (>60 ml/min/1.73 sqM); Potassium 5.2 mmol/L (3.5-5.1); Sodium 140 mmol/L (137-145)
[2020-09-21] MEDS: ALBUTEROL HFA INHALER INHALATION SCH ×4 (07:11→19:20)
--- NOTE | 2020-09-21 07:18 | XR ---
EXAMINATION TYPE: XR chest 1V portable DATE OF EXAM: 09/21/2020 COMPARISON: Chest x-ray 09/20/2020 HISTORY: Covid, intubated TECHNIQUE: Single frontal view of the chest is obtained. FINDINGS: Endotracheal tube, orogastric tube, left-sided PICC line are overlying appropriate positio ns. There are overlying leads. Bilateral airspace disease, prominent interstitium again noted. No chavez dent pneumothorax or pleural effusion. Cardiac mediastinal silhouette is stable. IMPRESSION: Correlate for pneumonia.
[2020-09-21 07:54] LABS: Glucose,Whole Blood 218 mg/dL (75-99)
[2020-09-21] MEDS: ZINC SULFATE 220 MG CAP PO SCH (08:08)
[2020-09-21] MEDS: ATORVASTATIN 80 MG TAB PO SCH (08:08)
[2020-09-21] MEDS: amLODIPine 10 MG TAB PO SCH (08:08)
[2020-09-21] MEDS: ASCORBIC ACID 500 MG TAB PO SCH ×2 (08:09→20:36)
[2020-09-21] MEDS: CHOLECALCIFEROL 25 MCG (1000 IU) TABLET PO SCH (08:09)
[2020-09-21] MEDS: FAMOTIDINE 20 MG TAB PO SCH ×2 (08:10→20:36)
[2020-09-21] MEDS: CHLORHEXIDINE GLUCONATE 15 ML CUP MUCOUS MEM SCH ×2 (08:10→20:36)
[2020-09-21] MEDS: ENOXAPARIN 40 MG/0.4 ML SYRINGE SQ SCH (08:11)
[2020-09-21] MEDS: ASPIRIN 81 MG PO SCH (08:16)
[2020-09-21] MEDS: allopurinoL 300 MG TAB PO SCH (08:16)
[2020-09-21] MEDS: CISATRACURIUM 200 MG in SODIUM CHLORIDE 0.9% 180 ML IV SCH ×2 (08:51→17:47)
[2020-09-21] MEDS: METOPROLOL TARTRATE 12.5 MG TAB PO SCH ×3 (09:33→20:45)
[2020-09-21] MEDS ORDERED: DEXTROSE 5% IN WATER 100 ML with AMIODARONE 150 MG IV ONE (10:10)
[2020-09-21] MEDS ORDERED: AMIODARONE 360 MG in DEXTROSE 5% IN WATER 200 ML IV ONE ×2 (10:30)
[2020-09-21] MEDS: DEXTROSE 5% IN WATER 1,000 ML IV SCH (10:49)
--- NOTE | 2020-09-21 11:18 | P.PN ---
Subjective Progress Note Date: 09/21/20 Principal diagnosis: Acute hypoxic respiratory failure secondary to COVID-19 pneumonia and ARDS. 54-year-old white male patient who is an ex smoker, carries [id number] smoking history quit smoking 1 year ago in May, history of hypertension and gout who sees Dr. Contreras, presented to the emergency department on 08/02/2020 with complaints of worsening shortness of breath, cough, and patient was diagnosed with Covid 19 one week ago, was tested at [facility] per Dr. Contreras's order. 2 weeks ago he had symptoms of flulike illness, sore throat, shortness of breath, weakness, muscle aches which progressively became worse, and patient developed worsening shortness of breath and had difficulty breathing and ambulating at home. He was placed on Decadron [address] Contreras and he has 1-1/2 days worth left of it. Chest x-ray in the emergency department showed bilateral interstitial pneumonia. White blood cell count was 33.1, d-dimer was greater than 35.2, CO2 is 16, the rest of electrolytes were unremarkable, B1 is 35 creatinine is 1.04, plasma lactic acid is 4.5, patient was given IV fluids and lactic acid came down to 1.8, total bilirubin was 1.6, AST is 107, ALT is 48, alkaline phosphatase is 114, LDH is 5924, first troponin was 4.190, and the second one went up to 6.960. CRP is 180.3, pro-calcitonin level is 0.33, urinalysis showed 1+ protein, but no definite sign of infection, pulse ox is 86 on room air, patient has significant shortness of breath, and was placed on BiPAP support, currently with pressures of 12/6, and FiO2 of 100% on which he remains this morning, he is afebrile, hemodynamically he is stable, she was started on IV Decadron, we'll start him on intermediate dose of Lovenox 50 mg every 12 hours, CTA chest shows no evidence of pulmonary embolism, and extensive pulmonary infiltrates that are mostly interstitial consistent with severe interstitial pneumonia. Progress note dated 09/04/2020. 54-year-old male, admitted with a diagnosis of COVID 19 pneumonitis. Currently, he is on BiPAP at 12/6 and 90%. FiO2 will be dropped down to 80%. In addition, he is getting saline at 75 mL an hour. The patient's doing better today. He states that he feels better. He still short of breath with activity. I did tell him today to make sure he moves around in bed when he is laying in bed. White count 29.3, hemoglobin 14.6, hematocrit 42.7, platelet count 140,000. D- dimer greater than 34.10. Sodium 136, potassium 5.1, chlorides 105, CO2 25, anion gap 6, BUN 39, creatinine 0.9. LDH is 3965. C-reactive protein 143. Chest x-ray shows a worsening pattern of bilateral airspace disease. Progress note dated 09/05/2020. 54-year-old male, admitted with a diagnosis of COVID 19 pneumonitis. He remains on BiPAP with an FiO2 of 80%. Settings included an IPAP 12, EPAP 6. The patient states that he feels a bit better. He is getting saline at 75 mL an hour. He feels like he is breathing is improved. He does know to move about in bed. No new laboratory data today. His most recent chest x-ray was from yesterday and was reviewed. The patient's on appropriate medications. Progress note dated 09/06/2020. 54-year-old male, seen again today. The patient is on BiPAP, settings of IPAP 12, EPAP 6, and 90%. He is also getting saline at 75 mL an hour. Was admitted with a diagnosis of acute hypoxemic respiratory failure secondary to COVID 19 pneumonia. The patient feels about the same. No better or no worse. He will have a chest x-ray tomorrow. Labs are reviewed. White count 19.3, hemoglobin 15, hematocrit 43.9, and platelet count 92,000. Sodium 135, potassium 4.9, chlorides 109, CO2 20, anion gap 6, BUN 34, and creatinine 0.92. There is no recent chest x-ray to review. The patient is seen today 09/07/2020 in follow-up on the selective care unit. He is currently resting comfortably in bed. States he is doing a little better today compared to yesterday. He is still requiring BiPAP support 12/6 and 100% FiO2. Chest x-ray reveals stable bilateral lung infiltrates. Blood glucose 163. He remains on bronchodilators, vitamin supplements, dexamethasone, Lovenox. 0.9 normal saline at 75 ML's per hour. On 09/08/2020, the patient is being seen in follow-up on the [facility] units. The patient is a 54-year-old male patient with Covid 19 related pneumonia and the patient has diffuse stable by the pulmonary infiltrates. The patient remains on Decadron. The patient is also on Lovenox 40 mg subcu every 12 hours. The patient is also requiring BiPAP for respiratory support at a pressure of 12/6 cm of water and FiO2 of 100%. The patient is able to generate a tidal volume of 800 mL of the respiratory rate of 24 and a minute ventilation of 23 L. The patient Has elevated inflammatory markers and the last time the markers were checked were on 09/04/2020 with an LDH of 3965 and a CRP of 142. Levels will need to be rechecked. The d-dimer was above 34. The LDH level remains elevated at 3911. D-dimer is 24.6. The patient is also on IV fluids with normal saline at the rate of 75 mL an hour. The patient is on Decadron 6 because IV every 24 hours. The patient is also on Lovenox 40 mg subcu every 12 hours. His current BMI 31.5. On 09/09/2020, the patient is being seen for a follow-up. The patient continues to be on a BiPAP at a pressure of 12/6 cm of water with an FiO2 of 100%. The patient is awake and he requires assistance to be moved around. His tidal volume is in the order of 800 mL which is comparable to yesterday. A repeat chest x-ray was done and it shows some limited improvement in the bilateral pulmonary infiltrates. the patient remains on Decadron and the dose is currently at 60 mg IV every 12 hours. inflammatory markers are elevated with an LDH level of 3 911 and the CRP is 22.5. His d-dimer is still elevated at 24.6 and the patient is on Lovenox at a dose of 40 mg subcu every 12 hours.. On his problem continue to be the patient's hypoxemia, Covid 19 related pneumonia and global weakness. Unfortunately, the patient is unable to eat as the patient desaturates significantly was taken off the BiPAP. 09/10/2020 the patient remains BiPAP dependent at the pressure of 12/6 cm of water. His FiO2 is still 100%. He was still able to generate adequate tidal volumes while being on a BiPAP. He has had a PICC line yesterday as the patient was not meeting his caloric requirements and I was also contemplating the possibility of TPN. His chest x-ray remains unchanged with diffuse bilateral infiltrates consistent with Covid 19 related pneumonia. His blood work is showing a d-dimer of 24 from 2 days ago. Electrolytes are normal, and no new inflammatory markers. The current pulse ox is 92% on a BiPAP and the patient remains on Decadron 6 mg IV every 12 hours. 09/11/2020, the patient remains on a BiPAP at a pressure of 12/6 and FiO2 of 100%. He is quite lethargic. He is in mild degree of respiratory distress even at rest while on the BiPAP. Current pulse ox is 89%. A PICC line was inserted yesterday and the patient was also started on TPN for nutritional support knowing that he was able to eat and he was not meeting his caloric requirements. His d-dimer is 15. The patient is on Lovenox 50 mg subcu every 12 hours. The patient is also receiving Decadron 6 mg IV 12 hours. Current pulse ox is around 89%. No major changes condition since yesterday. No other new labs otherwise. His resting in bed comfortably. He is generating tidal volumes above >600cc with respiratory rate in the mid 20s. He had no signs of any fluid overload. Mentation is preserved. Looks lethargic. He is able to answer questions and following commands. No other significant issues otherwise for now. I will today's condition is essentially stable since yesterday. 09/12/2020 the patient remains on BiPAP 12/6 cm of water with an FiO2 of 100%. Condition is essentially the same and unchanged compared to yesterday. The patient is currently on a pulse ox of 94% on above-mentioned BiPAP setting. He remains on Decadron 6 mg IV every 12 hours. He also is on Lovenox 50 mg subcu every 12 hours. He has an LDH level of 5040 at a CRP of 8.2. His inflammatory markers were obtained yesterday and they were quite elevated. He is still able to generate tidal volumes above 500 and his respiratory rate currently is in the 00s for now. Chest x-ray is consistent with diffuse bilateral pulmonary infiltrates. He has a PICC line in his left upper extremity and the patient is receiving TPN for nutritional support. As mentioned, he remains weak and lethargic. He is arousable and follows commands and answering questions. 09/13/2020, the patient got transferred to the intensive care unit where the patient got intubated and placed on a mechanical ventilator. Note that the patient was maintaining relatively fine on the BiPAP and ultimately desaturates., Became more short of breath and unresponsive in the blood. Showed significant hypoxemia and he had to come in to the ICU where he was intubated and placed on a mechanical ventilator. At this point and he is sedated with propofol running at 50 mcg/kg per minute and the patient is also paralyzed with Nimbex at 3 mcg/kg per minute. He is currently on assist control mode at the rate of 32 with a tidal volume of 400 and FiO2 of 1% with a PEEP of 15. The blood gases post intubation showed a pH of 7.22 and a pCO2 of 61 and pO2 of 89. His chest x-ray showing adequate positioning of ET tube. He has diffuse bilateral pulmonary infiltrates consistent with Covid 19 related p neumonia. Peak airway pressure 38. Static pressures 34. He is well rested and paralyzed for now. His BP currently is running at 156/59 and the patient was quite hypertensive prior to his intubation. His blood pressure came up to 182/110 and currently it's more stable. Labs are still pending for now. Meanwhile, the patient remains on Decadron 6 mg IV every 12 hours. Is also on Lovenox 40 mg subcu twice a day. He was receiving TPN for nutritional support as the patient was unable to take any form of oral intake as he was very much BiPAP dependent. TPN will be discontinued and the patient will be transitioned to enteral feeding note that he is currently intubated on a mechanical venti lator. A central line was also inserted. IV fluids are running at the rate of 20 mL an hour of normal saline. TPN Is currently running at 90 mL an hour. 09/14/2020, the patient is intubated on a mechanical ventilator in the intensive care unit. The patient currently is sedated and paralyzed. Propofol is running at 40 mcg/kg per minute and the Nimbex is running at 1.8 mcg/kg per minute. He is adequately sedated and paralyzed. He is still assist-control mode of mechanical ventilation at the rate of 32 with a tidal volume of 400 and FiO2 of 100% and a PEEP of 15. His blood gases from today showed a pH of 7.29 and pCO2 of 62 and pO2 of 86. We are allowing permissive hypercapnia. The peak and static pressures today are 14 and 34 respectively. His chest x-ray from today showing diffuse bilateral pulmonary infiltrates more so in the lower lobes and there is extensive consolidation of the lower lobes bilaterally. ET tube is at the level of the aortic knob. NG tube is in place. The patient remains on Decadron and currently is at a dose of 6 mg IV every 12 hours. In terms of his blood work, his inflammatory markers show a drop in the LDH level which is down to 294 and a CRP level is down to 5.2. D-dimer from a few days ago was 15.6 and the patient remains on Lovenox at a dose of 40 mg subcu every 12 hours. His TPN has been discontinued and the patient was switched enteral feeding and the patient is currently on vital high protein at the rate of 20 mL an hour which is at goal for now. IV fluids running at 20 mL an hour. He is hemodynamically stable. His overall fluid balance has been +1.6 L over the past 24 hours. Note that this patient was intubated yesterday after failing BiPAP for several days. He was intubated on 08/12/2020. Family is aware. Patient was reevaluated today on 09/15/2020, remains intubated and mechanically ventilated. Patient is presently on assist control rate of 52 tidal volume is 400 FiO2 at 90% PEEP is 15 ABG showed a pO2 of 77 pCO2 of 64 pH of 7.30. His peak airway pressure is 47 static pressure is 43. Attempted to adjust the PEEP higher, however he static pressure was getting much higher. Hence The PEEP at 15. And I adjusted the flow rate down to 60. He is on multiple drips including Nimbex at 1.5 mcg/kg/minute. he is on propofol at 40 mcg/kg per minute. Patient remains on permissive hypercapnia with a pCO2 of 64 pH of 7.30. Today considering the patient is on Nimbex I added fentanyl and 0.25 mcg/kg/h. And I switch his Decadron to Solu-Medrol at 60 mg IV push every 6 hours. Patient was intubated on 09/13 has been in the ICU since 09/13 he was actually admitted on 09/02 feeding gomez he is on HP20 mL per hour. Patient is sedated and paralyzed. Chest x-ray continues to show bilateral patchy infiltrates. Not much of a change noted. Patient was reevaluated today on 09/16/2020, remains in the ICU, intubated and mechanically ventilated. He is now on ventilator settings assist control rate of 3 to tell volume is 400 FiO2 80% and PEEP of 16. ABG showed a pO2 of 77 pCO2 of 68 pH of 7.28. Patient remains on propofol at 40, Nimbex at 1.2 fentanyl 0.5, IV fluid at KVO. FiO2 was decreased today from on the percent to 80%, and increase the flow rate to 65 L/m. Chest x-ray is showing no significant change. Patient remains fully sedated and paralyzed. He is on tube feeding using vital HP at 20 mL per hour. Electrolytes were reviewed potassium is 5.4. BUN is 55 creatinine 1.1, hence increase his IV fluid rate to 100 mL per hour. Bit of leukocytosis noted today, but improved compared to yesterday WBC count is 19.5 hemoglobin is 13.4. LDH continues on the rise to 081, and C-reactive protein is better at 1.5. Patient was reevaluated today on 09/17/2020, remains in the ICU, intubated mechanically ventilated, sedated, paralyzed, his ventilator settings are assist control rate of 32, tidal volume is 400 FiO2 65% and PEEP remains at 16. Peak airway pressure is 37, static pressures 27, chest x-ray continues to show by lateral patchy infiltrates consistent with COVID-19 pneumonia. ABG showed a pO2 of 64 pCO2 of 69 pH of 7.26. Hence his tidal volume was increased up to 420 7400. Patient will remain sedated. No plans to wean or extubated anytime soon. Patient remains on propofol at 40 Nimbex at 2 fentanyl 0.5 IV fluid at 100 mL per hour, he is on tube feeding 37/37 vital HP. Electrolytes are normal BUN is 58 creatinine is 1.08. Improving. LDH was 2080 yesterday. And C-reactive protein 1.5 Patient was reevaluated today on 09/18/2020, remains in the ICU intubated mechanically ventilated and sedated and paralyzed. Still requiring relatively high FiO2 of 65 and high PEEP of 16. ABG is marginal. He is on assist control rate of 34 tidal volume 420 FiO2 65% PEEP of 16. ABG showed a pO2 of 64 pCO2 of 61 pH of 7.32. Patient remains on propofol at 40 Nimbex at 0.2 and fentanyl at 0.5. Remains on tube feeding/vital HP at 37 mL per hour. Plan today to give the patient at least and Nimbex holiday if possible. Chest x-ray is basically unchanged. And his overall condition is about the same. WBC count is 14.9 hemoglobin is 12. Electrolytes showed elevated sodium of 146 hence the patient will be given free water and potassium of 5.6 we'll give a dose of Kayexalate. Renal profile showed a BUN of 54 creatinine 0.97, improving. Patient was reevaluated today on 09/19/2020, remains intubated and sedated, he is also paralyzed, remains on assist control rate of 32, tidal volume is 420 FiO2 65% and PEEP of 16. ABG showed a pO2 of 72 pCO2 of 63 pH of 7.32. His peak ai rway pressure is in the high 30s and plateau pressure is 31. Patient remains on IV fluid at 100 mL/h he is on Nimbex at 3, fentanyl at 1 on propofol at 40. He is on tube feeding using vital HP at goal. Today considering his sodium being elevated we have transitioned his IV fluids from 0.9 normal saline to D5W at 100 mL per hour and the patient will be receiving free water flushes via nasogastric tube. Chest x-ray is basically about the same, continues show by basilar patchy infiltrates, consistent with COVID-19 pneumonia, not much of a change is noted in the last couple of days. Hemodynamically gomez, the patient is stable, not requiring any pressors. Reevaluated today on 09/20/2020, patient remains intubated and sedated and mechanically ventilated and paralysis. On assist control rate of 32 tidal volume 420 FiO2 60% PEEP of 16. ABG showed a pO2 of 69 pCO2 of 62 pH of 7.32. Chest x-ray is basically about the same continues to by basilar patchy infiltrates. Remains on propofol at 20 Nimbex at 3 fentanyl at 1 D5W at 100 mL per hour. Remains on tube feeding. He is also receiving free water flushes. He is on enteral feeding using vital HP at 40 mL per hour. CBC is relatively normal hemoglobin is 10.7. Electrolytes sodium remains elevated at 145, however improving from 149 yesterday. BUN is 51 creatinine 1.03. Calcium is 7.9. No inflammatory markers were ordered today. Patient was reevaluated today on 09/21/2020, remains in the ICU, intubated and mechanically ventilated, sedated and paralyzed. Patient is on assist control rate of 32 tidal volume 420 FiO2 60% and PEEP of 16. ABG showed a pO2 of 65 pCO2 of 62 pH of 7.32. Remains on propofol at 25, Nimbex S3 fentanyl at 1 D5W at 100 mL per hour, and vital HP 40/40. Chest x-ray is showing slight improvement in his bilateral patchy infiltrates. Patient has not had a bowel movement in almost over a week, hence we'll start the patient on lactulose and Reglan. Today I have instructed the nurses to consider pronating the patient at least try presently position and hopefully address Nimbex holidays. However the patient is to be prone doubt other chemo on Nimbex. His IV fluid remains D5W and I cut it down to 50 mL per hour. After evaluating the patient, and patient was off Nimbex for a very short period of time developed atrial fibrillation with RVR, Lasix the patient on amiodarone as per protocol, bolused with amiodarone. And he had to go back on Nimbex. Objective - Vital Signs Vital signs: Vital Signs Temp 98.9 F 09/21/20 08:00 Pulse 50 L 09/21/20 10:00 Resp 32 H 09/21/20 10:00 BP 140/72 09/16/20 22:00 Pulse Ox 87 L 09/21/20 10:00 Intake & Output 09/20/20 09/21/20 09/21/20 18:59 06:59 18:59 Intake Total 2577.646 1811.354 552.548 Output Total 1025 1150 485 Balance 1552.646 661.354 67.548 Weight 102.6 kg Intake: IV 1133 336 212 Dextrose 5% in Water 1, 1100 300 200 000 ml @ 100 mls/hr IV . Q10H [facility] Rx#:[id number] Pressure bag 33 36 12 Intake, IV Titration 404.646 395.354 190.548 Amount Cisatracurium 200 mg In 200 200 10.566 Sodium Chloride 0.9% 180 ml @ 1 MCG/KG/MIN 5.61 mls/hr IV .Q24H [facility] Rx#: [id number] fentaNYL (PF). 1,000 mcg 100 100 92.862 In Sodium Chloride 0.9% 80 ml @ Per Protocol IV . Q0M [facility] Rx#:[id number] propofoL 1,000 mg In 104.646 95.354 87.12 Empty Bag 1 bag @ Titrate IV .Q0M [facility] Rx#: [id number] Tube Feeding 440 480 120 Other 600 600 30 Output: Urine 1025 1150 485 Other: Voiding Method Indwelling Catheter Indwelling Catheter ABP, PAP, CO, CI - Last Documented Arterial Blood Pressure 141/58 - Exam GENERAL EXAM: Revealed 54-year-old male intubated and mechanically ventilated, paralyzed and sedated HEAD: Normocephalic. Atraumatic, endotracheal tube and orogastric tube is intact. EYES: PERRLA, EOMI, nonicteric.. THROAT: No erythema or exudates. NECK: No masses, no JVD. CHEST: No chest wall deformity. LUNGS: Crackles, mostly at the bases. No rhonchi and no wheezes. CVS: S1 and S2 normal with no audible murmur, regular rhythm. ABDOMEN: Soft nontender no megaly no rebound no guarding. Musculoskeletal: No deformities. Did not assess range of motion. SKIN: No rashes CENTRAL NERVOUS SYSTEM: Could not assess. Because of paralysis and sedation. EXTREMITIES: No clubbing edema or cyanosis. Psychiatric: Unable to assess. - Labs CBC & Chem 7: 09/21/20 05:11 09/21/20 05:11 Labs: Abnormal Lab Results - Last 24 Hours (Table) 09/20/20 09/20/20 09/21/20 Range/Units 12:00 21:01 00:35 WBC (3.8-10.6) k/uL RBC (4.30-5.90) m/uL Hgb (13.0-17.5) gm/dL Hct (39.0-53.0) % Plt Count (150-450) k/uL Neutrophils # (1.3-7.7) k/uL Lymphocytes # (1.0-4.8) k/uL ABG pH (7.35-7.45) ABG pCO2 (35-45) mmHg ABG pO2 (83-108) mmHg ABG HCO3 (21-25) mmol/L ABG Total CO2 (19-24) mmol/L ABG O2 Saturation (94-97) % Potassium (3.5-5.1) mmol/L Carbon Dioxide (22-30) mmol/L BUN (9-20) mg/dL Glucose (74-99) mg/dL POC Glucose (mg/dL) 239 H 245 H 265 H (75-99) mg/dL Calcium (8.4-10.2) mg/dL Magnesium (1.6-2.3) mg/dL 09/21/20 09/21/20 09/21/20 Range/Units 04:45 05:11 05:11 WBC 11.9 H (3.8-10.6) k/uL RBC 3.34 L (4.30-5.90) m/uL Hgb 10.8 L (13.0-17.5) gm/dL Hct 31.6 L (39.0-53.0) % Plt Count 129 L (150-450) k/uL Neutrophils # 10.2 H (1.3-7.7) k/uL Lymphocytes # 0.7 L (1.0-4.8) k/uL ABG pH 7.32 L (7.35-7.45) ABG pCO2 62 H (35-45) mmHg ABG pO2 65 L (83-108) mmHg ABG HCO3 32 H (21-25) mmol/L ABG Total CO2 34 H (19-24) mmol/L ABG O2 Saturation 92.3 L (94-97) % Potassium 5.2 H (3.5-5.1) mmol/L Carbon Dioxide 33 H (22-30) mmol/L BUN 51 H (9-20) mg/dL Glucose 237 H (74-99) mg/dL POC Glucose (mg/dL) (75-99) mg/dL Calcium 7.9 L (8.4-10.2) mg/dL Magnesium (1.6-2.3) mg/dL 09/21/20 09/21/20 09/21/20 Range/Units 05:11 05:24 07:52 WBC (3.8-10.6) k/uL RBC (4.30-5.90) m/uL Hgb (13.0-17.5) gm/dL Hct (39.0-53.0) % Plt Count (150-450) k/uL Neutrophils # (1.3-7.7) k/uL Lymphocytes # (1.0-4.8) k/uL ABG pH (7.35-7.45) ABG pCO2 (35-45) mmHg ABG pO2 (83-108) mmHg ABG HCO3 (21-25) mmol/L ABG Total CO2 (19-24) mmol/L ABG O2 Saturation (94-97) % Potassium (3.5-5.1) mmol/L Carbon Dioxide (22-30) mmol/L BUN (9-20) mg/dL Glucose (74-99) mg/dL POC Glucose (mg/dL) 256 H 218 H (75-99) mg/dL Calcium (8.4-10.2) mg/dL Magnesium 3.0 H (1.6-2.3) mg/dL Assessment and Plan Assessment: Impression: Acute hypoxic respiratory failure secondary to acute COVID-19 pneumonia with ARDS. Patient received toci, and convalescent plasma, remains on the COVID-19 cocktail. Remains on Lovenox 40 mg subcu daily. Remains on relatively high PEEp, FiO2 is 60% Elevated inflammatory markers secondary to above Benign essential hypertension Former smoker. Hypernatremia secondary to free water deficit. Improving. Sodium today is 145. Hyperkalemia secondary to his underlying respiratory acidosis, resolved. New onset atrial fibrillation with RVR. Presently on amiodarone. Recommendation:. Continue ventilatory support, no change today. Continue nutritional support. Continue Solu-Medrol at 60 mg IV push every 6 hours. Continue Lovenox at 40 mg subcu daily may consider placing the patient on Eliquis now with his new onset episode of atrial fibrillation and RVR, and this will be addressed by cardiology. Continue the COVID-19 cocktail. Patient received convalescent plasma and toci Continue free water flushes and cut down her IV fluid D5 W-2 50 mL per hour since his sodium is correcting nicely. Continue to monitor potassium. Consider proning positions on this patient. Continue GI and DVT prophylaxis Patient remains critically ill, critical care time is over 30 minutes. Time with Patient: Greater than 30
[2020-09-21 11:29] LABS: Glucose,Whole Blood 186 mg/dL (75-99)
[2020-09-21] MEDS ORDERED: DILTIAZEM 5 MG/ML 5 ML VIAL IVP STA (11:34)
[2020-09-21] MEDS: LACTULOSE 20 GM/30 ML CUP PO SCH ×3 (12:28→22:35)
[2020-09-21] MEDS: METOCLOPRAMIDE 5 MG/ML 2 ML VIAL IVP SCH ×3 (12:29→23:06)
[2020-09-21] MEDS ORDERED: INSULIN DETEMIR (LEVEMIR) 100 UNIT/ML SYR SQ ONE (13:30)
--- NOTE | 2020-09-21 15:31 | PN ---
PROGRESS NOTE DATE OF SERVICE: 09/01/2020 This 54-year-old gentleman admitted with acute hypoxic respiratory failure secondary to Covid-19 pneumonia is being closely monitored. Vent settings are static today. The patient blood sugar has been improving. The D5 water has been cut down to 50 mL/hour and the glucose is slightly better. Patient being closely monitored. The most recent chest x-ray which was reviewed personally by the by me showed extensive bilateral lower lobe infiltrates at this time. The patient also had atrial fibrillation with a fast ventricular drip. The patient is currently on amiodarone drip with the rate getting better at this time. Cardiology following the patient closely. Past medical history and review of systems could not be taken. PAST MEDICAL HISTORY: Could not be taken. CURRENT MEDICATIONS: Reviewed and include: Tylenol, Ventolin, Zyloprim, amiodarone, Norvasc, vitamin C, aspirin, Lipitor, folic acid, and Lovenox. Doses are reviewed. PHYSICAL EXAM: Patient is mechanically sedated. Pulse is 116, irregular. Blood pressure 110/60. Respirations 32, temperature 98 degrees, pulse ox 86 percent on mechanical ventilation. Vent settings are noted. HEENT: Conjunctivae normal. NECK: No JVD. CARDIOVASCULAR: S1, S2 muffled. RESPIRATION: Breath sounds diminished in the bases. A few scattered rhonchi. ABDOMEN: Soft. Nontender. NERVOUS SYSTEM: Patient is mechanically sedated. LABS: WBC 11.2, hemoglobin 10.8, platelets 129. Sodium 140, potassium 5.2, glucose is 218, 186. ASSESSMENT: 1. Acute hypoxic respiratory failure secondary to bilateral COVID-19 pneumonia, extensive interstitial pneumonia on mechanical ventilation. 2. Acute lactic acidosis. 3. Atrial fibrillation with fast ventricular rate. 4. Elevated blood glucose. 5. Change in mental status, acute metabolic encephalopathy. 6. Hyponatremia. 7. Hypertension. 8. Elevated random glucose. 9. Elevated troponin possibly secondary to type 2 acute myocardial infarction secondary to hypoxemia and Covid 19. 10.History of gastroesophageal reflux disease. 11.Gastrointestinal prophylaxis. 12.Deep vein thrombosis prophylaxis. 13.Thrombocytopenia. 14.FULL CODE. RECOMMENDATIONS AND DISCUSSION: Continue current medications, management and symptomatic treatment. I recommend 10 units Lantus to monitor blood sugars closely. Otherwise, monitor electrolytes closely. Potassium is 5.2 today. The patient is also on amiodarone drip. Full cardiac workup. The platelets are 129. We will monitor the platelets closely. Further recommendations to follow. MMODL / IJN: [id number] /
[2020-09-21] MEDS: AMIODARONE 450 MG in DEXTROSE 5% IN WATER 250 ML IV SCH ×2 (17:18)
[2020-09-21 17:26] LABS: Glucose,Whole Blood 209 mg/dL (75-99)
[2020-09-21 23:53] LABS: Glucose,Whole Blood 227 mg/dL (75-99)
[2020-09-22] MEDS: INSULIN ASPART (NovoLOG) 100 UNIT/ML VIAL SQ SCH ×5 (00:16→23:54)
[2020-09-22] MEDS: CISATRACURIUM 200 MG in SODIUM CHLORIDE 0.9% 180 ML IV SCH ×3 (03:53→18:57)
[2020-09-22] MEDS: METOCLOPRAMIDE 5 MG/ML 2 ML VIAL IVP SCH ×2 (05:13→12:25)
[2020-09-22] MEDS: methylPREDNISolone SOD SUCCI 125 MG/2 ML VIAL IV SCH ×4 (05:13→23:53)
[2020-09-22 05:21] LABS: Glucose,Whole Blood 126 mg/dL (75-99)
[2020-09-22 05:22] LABS: ABG Base Excess 5.5 mmol/L; ABG HCO3 32 mmol/L (21-25); ABG Oxygen Saturation 94.5 % (94-97); ABG PCO2 60 mmHg (35-45); ABG PH 7.33 (7.35-7.45); ABG PO2 71 mmHg (83-108); ABG TCO2 33 mmol/L (19-24); Allen Test Performed? Yes
[2020-09-22 05:28] LABS: Glucose,Whole Blood 179 mg/dL (75-99)
[2020-09-22] MEDS: AMIODARONE 450 MG in DEXTROSE 5% IN WATER 250 ML IV SCH ×2 (05:36)
[2020-09-22 05:39] LABS: Basophils % (A) 0 %; Eosinophils % (A) 0 %; HCT 31.1 % (39.0-53.0); HGB 10.7 gm/dL (13.0-17.5); Lymphocytes # (A) 0.4 k/uL (1.0-4.8); Lymphocytes % (A) 4 %; MCH 31.9 pg (25.0-35.0); MCHC 34.2 g/dL (31.0-37.0); MCV 93.3 fL (80.0-100.0); Mean Platelet Volume 9.2; Monocytes # (A) 0.6 k/uL (0-1.0); Monocytes % (A) 5 %; Neutrophils # (A) 11.1 k/uL (1.3-7.7); Neutrophils % (A) 91 %; Platelet Count 141 k/uL (150-450); RBC 3.34 m/uL (4.30-5.90); RDW 14.8 % (11.5-15.5); WBC 12.2 k/uL (3.8-10.6)
[2020-09-22 06:02] LABS: African American GFR (CKD) >90 (>60 ml/min/1.73 sqM); Anion Gap 2 mmol/L; Blood Urea Nitrogen 43 mg/dL (9-20); Calcium 7.8 mg/dL (8.4-10.2); Carbon Dioxide 33 mmol/L (22-30); Chloride 103 mmol/L (98-107); Glucose 181 mg/dL (74-99); Non-African American GFR(CKD) >90 (>60 ml/min/1.73 sqM); Potassium 5.2 mmol/L (3.5-5.1); Sodium 138 mmol/L (137-145)
[2020-09-22] MEDS: DEXTROSE 5% IN WATER 1,000 ML IV SCH (06:10)
[2020-09-22] MEDS: ALBUTEROL HFA INHALER INHALATION SCH ×5 (07:07→19:19)
[2020-09-22] MEDS: METOPROLOL TARTRATE 12.5 MG TAB PO SCH ×2 (08:48→20:19)
[2020-09-22] MEDS: ATORVASTATIN 80 MG TAB PO SCH (08:49)
[2020-09-22] MEDS: ZINC SULFATE 220 MG CAP PO SCH (08:49)
[2020-09-22] MEDS: CHOLECALCIFEROL 25 MCG (1000 IU) TABLET PO SCH (08:49)
[2020-09-22] MEDS: ASPIRIN 81 MG PO SCH (08:49)
[2020-09-22] MEDS: FAMOTIDINE 20 MG TAB PO SCH ×2 (08:49→20:19)
[2020-09-22] MEDS: ASCORBIC ACID 500 MG TAB PO SCH ×2 (08:49→20:19)
[2020-09-22] MEDS: ENOXAPARIN 40 MG/0.4 ML SYRINGE SQ SCH (08:50)
[2020-09-22] MEDS: CHLORHEXIDINE GLUCONATE 15 ML CUP MUCOUS MEM SCH ×2 (08:50→21:57)
[2020-09-22] MEDS: allopurinoL 300 MG TAB PO SCH (08:50)
[2020-09-22] MEDS: LACTULOSE 20 GM/30 ML CUP PO SCH ×4 (08:50→20:19)
[2020-09-22] MEDS: amLODIPine 10 MG TAB PO SCH (08:51)
[2020-09-22] MEDS: fentaNYL (PF). 1,000 MCG in SODIUM CHLORIDE 0.9% 80 ML IV SCH ×2 (09:22→19:43)
--- NOTE | 2020-09-22 10:48 | P.PN ---
Subjective Progress Note Date: 09/22/20 Principal diagnosis: Hypoxemic respiratory failure. 54-year-old white male patient who is an ex smoker, carries 16-ebyx-paer smoking history quit smoking 1 year ago in May, history of hypertension and gout who sees Dr. Contreras, presented to the emergency department on 08/02/2020 with complaints of worsening shortness of breath, cough, and patient was diagnosed with Covid 19 one week ago, was tested at [facility] per Dr. Contreras's order. 2 weeks ago he had symptoms of flulike illness, sore throat, shortness of breath, weakness, muscle aches which progressively became worse, and patient developed worsening shortness of breath and had difficulty breathing and ambulating at home. He was placed on Decadron [address] Contreras and he has 1-1/2 days worth left of it. Chest x-ray in the emergency department showed bilateral interstitial pneumonia. White blood cell count was 33.1, d-dimer was greater than 35.2, CO2 is 16, the rest of electrolytes were unremarkable, B1 is 35 creatinine is 1.04, plasma lactic acid is 4.5, patient was given IV fluids and lactic acid came down to 1.8, total bilirubin was 1.6, AST is 107, ALT is 48, alkaline phosphatase is 114, LDH is 5924, first troponin was 4.190, and the second one went up to 6.960. CRP is 180.3, pro-calcitonin level is 0.33, urinalysis showed 1+ protein, but no definite sign of infection, pulse ox is 86 on room air, patient has significant shortness of breath, and was placed on BiPAP support, currently with pressures of 12/6, and FiO2 of 100% on which he remains this morning, he is afebrile, hemodynamically he is stable, she was started on IV Decadron, we'll start him on intermediate dose of Lovenox 50 mg every 12 hours, CTA chest shows no evidence of pulmonary embolism, and extensive pulmonary infiltrates that are mostly interstitial consistent with severe interstitial pneumonia. Progress note dated 09/04/2020. 54-year-old male, admitted with a diagnosis of COVID 19 pneumonitis. Currently, he is on BiPAP at 12/6 and 90%. FiO2 will be dropped down to 80%. In addition, he is getting saline at 75 mL an hour. The patient's doing better today. He states that he feels better. He still short of breath with activity. I did tell him today to make sure he moves around in bed when he is laying in bed. White count 29.3, hemoglobin 14.6, hematocrit 42.7, platelet count 140,000. D- dimer greater than 34.10. Sodium 136, potassium 5.1, chlorides 105, CO2 25, anion gap 6, BUN 39, creatinine 0.9. LDH is 3965. C-reactive protein 143. Chest x-ray shows a worsening pattern of bilateral airspace disease. Progress note dated 09/05/2020. 54-year-old male, admitted with a diagnosis of COVID 19 pneumonitis. He remains on BiPAP with an FiO2 of 80%. Settings included an IPAP 12, EPAP 6. The patient states that he feels a bit better. He is getting saline at 75 mL an hour. He feels like he is breathing is improved. He does know to move about in bed. No new laboratory data today. His most recent chest x-ray was from yesterday and was reviewed. The patient's on appropriate medications. Progress note dated 09/06/2020. 54-year-old male, seen again today. The patient is on BiPAP, settings of IPAP 12, EPAP 6, and 90%. He is also getting saline at 75 mL an hour. Was admitted with a diagnosis of acute hypoxemic respiratory failure secondary to COVID 19 pneumonia. The patient feels about the same. No better or no worse. He will have a chest x-ray tomorrow. Labs are reviewed. White count 19.3, hemoglobin 15, hematocrit 43.9, and platelet count 92,000. Sodium 135, potassium 4.9, chlorides 109, CO2 20, anion gap 6, BUN 34, and creatinine 0.92. There is no recent chest x-ray to review. Patient was reevaluated today on 09/19/2020, remains intubated and sedated, he is also paralyzed, remains on assist control rate of 32, tidal volume is 420 FiO2 65% and PEEP of 16. ABG showed a pO2 of 72 pCO2 of 63 pH of 7.32. His peak airway pressure is in the high 30s and plateau pressure is 31. Patient remains on IV fluid at 100 mL/h he is on Nimbex at 3, fentanyl at 1 on propofol at 40. He is on tube feeding using vital HP at goal. Today considering his sodium being elevated we have transitioned his IV fluids from 0.9 normal saline to D5W at 100 mL per hour and the patient will be receiving free water flushes via nasogastric tube. Chest x-ray is basically about the same, continues show by basilar patchy infiltrates, consistent with COVID-19 pneumonia, not much of a change is noted in the last couple of days. Hemodynamically gomez, the patient is stable, not requiring any pressors. Reevaluated today on 09/20/2020, patient remains intubated and sedated and mechanically ventilated and paralysis. On assist control rate of 32 tidal volume 420 FiO2 60% PEEP of 16. ABG showed a pO2 of 69 pCO2 of 62 pH of 7.32. Chest x-ray is basically about the same continues to by basilar patchy infiltrates. Remains on propofol at 20 Nimbex at 3 fentanyl at 1 D5W at 100 mL per hour. Remains on tube feeding. He is also receiving free water flushes. He is on enteral feeding using vital HP at 40 mL per hour. CBC is relatively normal hemoglobin is 10.7. Electrolytes sodium remains elevated at 145, however improving from 149 yesterday. BUN is 51 creatinine 1.03. Calcium is 7.9. No inflammatory markers were ordered today. Patient was reevaluated today on 09/21/2020, remains in the ICU, intubated and mechanically ventilated, sedated and paralyzed. Patient is on assist control rate of 32 tidal volume 420 FiO2 60% and PEEP of 16. ABG showed a pO2 of 65 pCO2 of 62 pH of 7.32. Remains on propofol at 25, Nimbex S3 fentanyl at 1 D5W at 100 mL per hour, and vital HP 40/40. Chest x-ray is showing slight improvement in his bilateral patchy infiltrates. Patient has not had a bowel movement in almost over a week, hence we'll start the patient on lactulose and Reglan. Today I have instructed the nurses to consider pronating the patient at least try presently position and hopefully address Nimbex holidays. However the patient is to be prone doubt other chemo on Nimbex. His IV fluid remains D5W and I cut it down to 50 mL per hour. After evaluating the patient, and patient was off Nimbex for a very short period of time developed atrial fibrillation with RVR, Lasix the patient on amiodarone as per protocol, bolused with amiodarone. And he had to go back on Nimbex. Progress note dated 09/22/2020. 54-year-old male, again seen, in room 250. The patient was admitted back on 09/03/2020. He was admitted with a diagnosis of acute hypoxemic respiratory failure secondary to COVID 19 pneumonia. The patient remains on the ventilator. He is on the volume assist control mode, rate of 32, tidal volume 420, FiO2 60%, and PEEP of 16. Blood gases show a PaO2 of 71, PaCO2 60, pH 7.33. The patient will need a tracheostomy and PEG tube placement. Currently, he is in the prone position. He is getting saline at 20 mL an hour, propofol at 40 mcg/kg/m, Nimbex at 3 mcg/kg/m, amiodarone at 0.5 mg/m D5W at 50 mL an hour, which will be discontinued, fentanyl 1 mcg/kg/h, and vital high protein at 40 mL an hour, which is goal. White count 12.2, hemoglobin 10.7, hematocrit 31.1, and platelet count 141,000. Sodium 138, potassium 5.2, chlorides 103, CO2 33, anion gap 2, and BUN and creatinine were 43 and 0.77 respectively., Chest x-ray shows bilateral patchy infiltrates. Objective - Vital Signs Vital signs: Vital Signs Temp 97.6 F 09/22/20 08:00 Pulse 41 L 09/22/20 10:00 Resp 26 H 09/22/20 10:00 BP 140/72 09/16/20 22:00 Pulse Ox 95 09/22/20 10:00 Intake & Output 09/21/20 09/22/20 09/22/20 18:59 06:59 18:59 Intake Total 2080.299 1334.482 173.198 Output Total 1045 940 310 Balance 1035.299 394.482 -136.802 Intake: IV 739 583 12 Dextrose 5% in Water 1, 200 000 ml @ 100 mls/hr IV . Q10H ONE Rx#:[id number] Dextrose 5% in Water 1, 500 550 0 000 ml @ 50 mls/hr IV . Q20H SPENSER Rx#:[id number] Pressure bag 39 33 12 Intake, IV Titration 551.299 751.482 161.198 Amount Amiodarone 450 mg In 205.004 Dextrose 5% in Water 250 ml @ 0.5 MG/MIN 16.667 mls/hr IV .Q15H SPENSER Rx#: [id number] Cisatracurium 200 mg In 191.956 200 Sodium Chloride 0.9% 180 ml @ 1 MCG/KG/MIN 5.61 mls/hr IV .Q24H SPENSER Rx#: [id number] fentaNYL (PF). 1,000 mcg 92.862 100 99.638 In Sodium Chloride 0.9% 80 ml @ Per Protocol IV . Q0M SPENSER Rx#:[id number] propofoL 1,000 mg In 266.481 246.478 61.56 Empty Bag 1 bag @ Titrate IV .Q0M SPENSER Rx#: [id number] Tube Feeding 360 Other 430 Output: Urine 1045 940 310 Stool 0 Other: Voiding Method Indwelling Catheter Indwelling Catheter ABP, PAP, CO, CI - Last Documented Arterial Blood Pressure 140/66 - Exam Currently sedated, and paralyzed. An orally placed endotracheal tube and NG tube is noted. The patient is currently in the prone position. HEENT examination is grossly unremarkable. Neck supple. Full range of motion. No adenopathy thyromegaly or neck vein distention. Cardiovascular examination reveals regular rhythm rate. S1-S2 normal. No S3 or S4. No discernible murmur noted. Heart rate 50 bpm. Lungs reveal coarse bilateral rhonchi, and scattered diffuse crackles. No wheezes are noted. Breath sounds are equal bilaterally. Abdomen soft bowel sounds are heard. No masses or tenderness. Extremities are intact. No cyanosis clubbing or edema. Skin is without rash or lesion. Neurologic examination cannot be assessed as the patient's currently sedated and paralyzed. - Labs CBC & Chem 7: 09/22/20 05:05 09/22/20 05:05 Labs: Abnormal Lab Results - Last 24 Hours (Table) 09/21/20 09/21/20 09/21/20 Range/Units 05:11 11:27 17:25 WBC (3.8-10.6) k/uL RBC (4.30-5.90) m/uL Hgb (13.0-17.5) gm/dL Hct (39.0-53.0) % Plt Count (150-450) k/uL Neutrophils # (1.3-7.7) k/uL Lymphocytes # (1.0-4.8) k/uL ABG pH (7.35-7.45) ABG pCO2 (35-45) mmHg ABG pO2 (83-108) mmHg ABG HCO3 (21-25) mmol/L ABG Total CO2 (19-24) mmol/L Potassium (3.5-5.1) mmol/L Carbon Dioxide (22-30) mmol/L BUN (9-20) mg/dL Glucose (74-99) mg/dL POC Glucose (mg/dL) 186 H 209 H (75-99) mg/dL Calcium (8.4-10.2) mg/dL Magnesium 3.0 H (1.6-2.3) mg/dL 09/21/20 09/22/20 09/22/20 Range/Units 23:51 05:05 05:05 WBC 12.2 H (3.8-10.6) k/uL RBC 3.34 L (4.30-5.90) m/uL Hgb 10.7 L (13.0-17.5) gm/dL Hct 31.1 L (39.0-53.0) % Plt Count 141 L (150-450) k/uL Neutrophils # 11.1 H (1.3-7.7) k/uL Lymphocytes # 0.4 L (1.0-4.8) k/uL ABG pH (7.35-7.45) ABG pCO2 (35-45) mmHg ABG pO2 (83-108) mmHg ABG HCO3 (21-25) mmol/L ABG Total CO2 (19-24) mmol/L Potassium 5.2 H (3.5-5.1) mmol/L Carbon Dioxide 33 H (22-30) mmol/L BUN 43 H (9-20) mg/dL Glucose 181 H (74-99) mg/dL POC Glucose (mg/dL) 227 H (75-99) mg/dL Calcium 7.8 L (8.4-10.2) mg/dL Magnesium (1.6-2.3) mg/dL 09/22/20 09/22/20 09/22/20 Range/Units 05:15 05:20 05:26 WBC (3.8-10.6) k/uL RBC (4.30-5.90) m/uL Hgb (13.0-17.5) gm/dL Hct (39.0-53.0) % Plt Count (150-450) k/uL Neutrophils # (1.3-7.7) k/uL Lymphocytes # (1.0-4.8) k/uL ABG pH 7.33 L (7.35-7.45) ABG pCO2 60 H (35-45) mmHg ABG pO2 71 L (83-108) mmHg ABG HCO3 32 H (21-25) mmol/L ABG Total CO2 33 H (19-24) mmol/L Potassium (3.5-5.1) mmol/L Carbon Dioxide (22-30) mmol/L BUN (9-20) mg/dL Glucose (74-99) mg/dL POC Glucose (mg/dL) 126 H 179 H (75-99) mg/dL Calcium (8.4-10.2) mg/dL Magnesium (1.6-2.3) mg/dL Assessment and Plan Assessment: Acute hypoxemic respiratory failure secondary to COVID 19 pneumonitis, and secondary acute respiratory distress syndrome. Status post intubation and mechanical ventilation for acute hypoxemic respiratory failure, with failure to wean from mechanical ventilation. Elevated inflammatory markers secondary to above. History of hypertension. Former tobacco use. Mildly elevated troponins, without chest pain. New-onset atrial fibrillation with RVR. Lactic acidosis. No computed tomography scan evidence of pulmonary embolism. Plan: Plan dated 09/04/2020. The patient is doing a bit better today. We are starting to wean down his FiO2. Additional recommendations and suggestions are forthcoming. The patient was outside the window for REM. The patient is currently on Lovenox, and Decadron. Additional recommendations and suggestions are forthcoming. We'll continue to follow. Prognosis is guarded. Plan dated 09/05/2020. Clinically, the patient feels a bit better today. He seems to be less short of breath. He is on BiPAP at 12/6 and 80%. The patient's on appropriate medications. I did tell him to move about all he is in bed. Right side down, left side down, supine, and prone. The patient is getting the appropriate vitamins, as well as Lovenox and Decadron. He was outside the window for REM. We will continue to follow and make recommendations were appropriate. Plan dated 09/06/2020. His oxygen requiring has gone up by 10%. Yesterday, he was on 80%. He's feeling about the same, no better, and no worse. He is receiving all appropriate medications including Lovenox, Decadron, vitamins, etc. He was out side the window for REM. We will continue to follow him closely. His labs and medications are reviewed. He will have a chest x-ray in the morning. No additional recommendations are made. Prognosis is guarded. Plan dated 09/22/2020. The patient has been here in the hospital now for 19 days. The patient was admitted back on 09/03/2020. The patient has been on the mechanical ventilator for some quite some time. The patient will need tracheostomy and PEG tube placement. We'll consult surgery for that. Additional recommendations and suggestions are forthcoming. The patient D5W IV will be discontinued. We will attempt to get the patient off of Nimbex first. The patient is currently receiving nutrition with vital high protein at goal at 40 mL an hour. We will continue to follow the patient make recommendations were appropriate. Overall prognosis remains guarded. Additional recommendations and suggestions are forthcoming. Time with Patient: Greater than 30
--- NOTE | 2020-09-22 11:32 | P.GSCN ---
History of Present Illness Consult date: 09/22/20 History of present illness: CHIEF COMPLAINT: Shortness of breath HISTORY OF PRESENT ILLNESS: This is a 54-year-old male with a known history of hypertension and nicotine dependence. He came into the emergency room on 09/02/2020 with worsening shortness of breath and cough. He was diagnosed with COVID-19 pneumonitis during his admission. Patient had worsening respiratory status and required to be intubated. He currently is in the ICU and is intubated on mechanical ventilation. He's also sedated and paralyzed. Patient has been on mechanical ventilation for prolonged period of time and unable to wean from the vent. Therefore, surgical consult was placed for tracheostomy and PEG tube placement. PAST MEDICAL HISTORY: See list. PAST SURGICAL HISTORY: See list. MEDICATIONS: See list. ALLERGIES: See list. SOCIAL HISTORY: No illicit drug use. REVIEW OF SYSTEMS: CONSTITUTIONAL: Denies fever or chills. HEENT: Denies blurred vision, vision changes, or eye pain. Denies hemoptysis CARDIOVASCULAR: Denies chest pain or pressure. RESPIRATORY: No shortness of breath. GASTROINTESTINAL: See HPI for pertinent findings HEMATOLOGIC: Denies bleeding disorders. GENITOURINARY: Denies any blood in urine or increased urinary frequency. SKIN: Denies pruitis. Denies rash. PHYSICAL EXAM: VITAL SIGNS: Reviewed GENERAL: Well-developed in no acute distress. HEENT: No sclera icterus. Extraocular movements grossly intact. Moist buccal mucosa. Head is atraumatic, normocephalic. No nasal drainage. ABDOMEN: Soft. Nondistended. Nontender NEUROLOGIC: Intubated and sedated LABORATORY DATA: WBC 12.2 hemoglobin 10.7 platelets 141 Sodium 138 potassium 5.2 BUN 43 creatinine 0.77 Albumin 3.0 IMAGING: ASSESSMENT: 1. Acute hypoxic respiratory failure due to COVID-19 pneumonia with prolonged mechanical ventilation 2. Moderate protein calorie malnutrition PLAN: -Patient is scheduled for tracheostomy and PEG tube placement with Dr. Flores today -keep tube feedings on hold -Continue ICU management -Continue supportive care Thank you for this consultation Physician Health Insurance Specialist note has been reviewed by physician. Signing provider agrees with the documented findings, assessment, and plan of care. Past Medical History Past Medical History: GERD/Reflux, Hypertension Additional Past Medical History / Comment(s): Pt states he tested covid + a week ago at [facility]. Other hx: Gout History of Any Multi-Drug Resistant Organisms: None Reported Past Surgical History: No Surgical Hx Reported Additional Past Surgical History / Comment(s): Colonoscopy Past Anesthesia/Blood Transfusion Reactions: No Reported Reaction Smoking Status: Former smoker - Past Family History Mother Family Medical History: No Reported History Additional Family Medical History / Comment(s): Mother is healthy Father Family Medical History: Cancer Additional Family Medical History / Comment(s): Kidney and liver cancer. Medications and Allergies Home Medications Medication Instructions Recorded Confirmed Type Albuterol Inhaler [Ventolin Hfa 2 puff INHALATION RT-QID PRN 09/02/20 09/02/20 History Inhaler] Azithromycin [Zithromax Z-pack (6 See Taper PO DIRECTED 09/02/20 09/02/20 H istory tabs)] Dexamethasone [Decadron] 3 mg PO BID 09/02/20 09/02/20 History Promethazine 6.25MG/5Ml [Phenergan 12.5 mg PO QID PRN 09/02/20 09/02/20 History Syrup] allopurinoL [Zyloprim] 300 mg PO DAILY 09/02/20 09/02/20 History amLODIPine [Norvasc] 10 mg PO DAILY 09/02/20 09/02/20 History Allergies Allergy/AdvReac Type Severity Reaction Status Date / Time No Known Allergies Allergy Verified 09/02/20 22:38 Surgical - Exam Vital Signs Temp Pulse Resp BP Pulse Ox 98.1 F 98 40 H 144/87 86 L 09/02/20 21:36 09/02/20 21:36 09/02/20 21:36 09/02/20 21:36 09/02/20 21:36 Results - Labs 09/22/20 05:05 09/22/20 05:05 Abnormal Lab Results - Last 24 Hours (Table) 09/21/20 09/21/20 09/21/20 Range/Units 11:27 17:25 23:51 WBC (3.8-10.6) k/uL RBC (4.30-5.90) m/uL Hgb (13.0-17.5) gm/dL Hct (39.0-53.0) % Plt Count (150-450) k/uL Neutrophils # (1.3-7.7) k/uL Lymphocytes # (1.0-4.8) k/uL ABG pH (7.35-7.45) ABG pCO2 (35-45) mmHg ABG pO2 (83-108) mmHg ABG HCO3 (21-25) mmol/L ABG Total CO2 (19-24) mmol/L Potassium (3.5-5.1) mmol/L Carbon Dioxide (22-30) mmol/L BUN (9-20) mg/dL Glucose (74-99) mg/dL POC Glucose (mg/dL) 186 H 209 H 227 H (75-99) mg/dL Calcium (8.4-10.2) mg/dL 09/22/20 09/22/20 09/22/20 Range/Units 05:05 05:05 05:15 WBC 12.2 H (3.8-10.6) k/uL RBC 3.34 L (4.30-5.90) m/uL Hgb 10.7 L (13.0-17.5) gm/dL Hct 31.1 L (39.0-53.0) % Plt Count 141 L (150-450) k/uL Neutrophils # 11.1 H (1.3-7.7) k/uL Lymphocytes # 0.4 L (1.0-4.8) k/uL ABG pH 7.33 L (7.35-7.45) ABG pCO2 60 H (35-45) mmHg ABG pO2 71 L (83-108) mmHg ABG HCO3 32 H (21-25) mmol/L ABG Total CO2 33 H (19-24) mmol/L Potassium 5.2 H (3.5-5.1) mmol/L Carbon Dioxide 33 H (22-30) mmol/L BUN 43 H (9-20) mg/dL Glucose 181 H (74-99) mg/dL POC Glucose (mg/dL) (75-99) mg/dL Calcium 7.8 L (8.4-10.2) mg/dL 09/22/20 09/22/20 Range/Units 05:20 05:26 WBC (3.8-10.6) k/uL RBC (4.30-5.90) m/uL Hgb (13.0-17.5) gm/dL Hct (39.0-53.0) % Plt Count (150-450) k/uL Neutrophils # (1.3-7.7) k/uL Lymphocytes # (1.0-4.8) k/uL ABG pH (7.35-7.45) ABG pCO2 (35-45) mmHg ABG pO2 (83-108) mmHg ABG HCO3 (21-25) mmol/L ABG Total CO2 (19-24) mmol/L Potassium (3.5-5.1) mmol/L Carbon Dioxide (22-30) mmol/L BUN (9-20) mg/dL Glucose (74-99) mg/dL POC Glucose (mg/dL) 126 H 179 H (75-99) mg/dL Calcium (8.4-10.2) mg/dL Diabetes panel 09/22/20 Range/Units 05:05 Sodium 138 (137-145) mmol/L Potassium 5.2 H (3.5-5.1) mmol/L Chloride 103 (98-107) mmol/L Carbon Dioxide 33 H (22-30) mmol/L BUN 43 H (9-20) mg/dL Creatinine 0.77 (0.66-1.25) mg/dL Glucose 181 H (74-99) mg/dL Calcium 7.8 L (8.4-10.2) mg/dL Calcium panel 09/22/20 Range/Units 05:05 Calcium 7.8 L (8.4-10.2) mg/dL Pituitary panel 09/22/20 Range/Units 05:05 Sodium 138 (137-145) mmol/L Potassium 5.2 H (3.5-5.1) mmol/L Chloride 103 (98-107) mmol/L Carbon Dioxide 33 H (22-30) mmol/L BUN 43 H (9-20) mg/dL Creatinine 0.77 (0.66-1.25) mg/dL Glucose 181 H (74-99) mg/dL Calcium 7.8 L (8.4-10.2) mg/dL Adrenal panel 09/22/20 Range/Units 05:05 Sodium 138 (137-145) mmol/L Potassium 5.2 H (3.5-5.1) mmol/L Chloride 103 (98-107) mmol/L Carbon Dioxide 33 H (22-30) mmol/L BUN 43 H (9-20) mg/dL Creatinine 0.77 (0.66-1.25) mg/dL Glucose 181 H (74-99) mg/dL Calcium 7.8 L (8.4-10.2) mg/dL
[2020-09-22 12:02] LABS: Glucose,Whole Blood 172 mg/dL (75-99)
--- NOTE | 2020-09-22 14:10 | P.PN ---
Subjective Progress Note Date: 09/22/20 This is a 54-year-old male who was recently admitted with acute hypoxic respiratory failure secondary to COVID-19 pneumonia and is being closely monitored. Continues to remain on mechanical ventilation currently sedated. Patient has had prolonged hospitalization with unsuccessful attempts at weaning and surgery has been consulted for tracheostomy along with PEG tube placement. Patient was on D5 water for hypernatremia and will be discontinued. Tube feedings on hold for surgery today and will resume once PEG tube is okay for use. Per nursing staff patient has also been in the prone position since yesterday evening into this morning and tolerated. Amiodarone has also been discontinued as patient is currently bradycardic. Pulmonary customer success manager following closely. Patient is maintained on sliding scale and will monitor closely once tube feedings have resumed. Review of systems: Unable to obtain as patient continues to be intubated and sedated Active Medications Acetaminophen (Acetaminophen Tab 325 Mg Tab) 650 mg PO Q6HR PRN PRN Reason: Fever and/ or Pain Last Admin: 09/16/20 11:48 Dose: 650 mg Documented by: Albuterol Sulfate (Albuterol Hfa Inhaler) 2 puff INHALATION RT-QID PRN PRN Reason: Shortness Of Breath Last Admin: 09/04/20 17:46 Dose: 2 puff Documented by: Albuterol Sulfate (Albuterol Hfa Inhaler) 2 puff INHALATION RT-QID [facility] Last Admin: 09/22/20 10:55 Dose: 2 puff Documented by: Allopurinol (Allopurinol 300 Mg Tab) 300 mg PO DAILY [facility] Last Admin: 09/22/20 08:50 Dose: 300 mg Documented by: Amlodipine Besylate (Amlodipine 10 Mg Tab) 10 mg PO DAILY [facility] Last Admin: 09/22/20 08:51 Dose: Not Given Documented by: Ascorbic Acid (Ascorbic Acid 500 Mg Tab) 500 mg PO BID [facility] Last Admin: 09/22/20 08:49 Dose: 500 mg Documented by: Aspirin (Aspirin 81 Mg) 81 mg PO DAILY [facility] Last Admin: 09/22/20 08:49 Dose: 81 mg Documented by: Atorvastatin Calcium (Atorvastatin 80 Mg Tab) 80 mg PO DAILY [facility] Last Admin: 09/22/20 08:49 Dose: 80 mg Documented by: Chlorhexidine Gluconate (Chlorhexidine Gluconate 15 Ml Cup) 15 ml MUCOUS MEM BID [facility] Last Admin: 09/22/20 08:50 Dose: 15 ml Documented by: Cholecalciferol (Cholecalciferol 25 Mcg (1000 Iu) Tablet) 125 mcg PO DAILY [facility] Last Admin: 09/22/20 08:49 Dose: 125 mcg Documented by: Enoxaparin Sodium (Enoxaparin 40 Mg/0.4 Ml Syringe) 40 mg SQ DAILY [facility] Last Admin: 09/22/20 08:50 Dose: 40 mg Documented by: Famotidine (Famotidine 20 Mg Tab) 20 mg PO BID [facility] Last Admin: 09/22/20 08:49 Dose: 20 mg Documented by: Heparin Sodium (Porcine) (Heparin Sodium 1,000 Un/Ml (10ml Vl)) 0 unit IV PER PROTOCOL PRN; Protocol PRN Reason: Low PTT Last Admin: 09/03/20 17:35 Dose: 4,900 unit Documented by: Propofol 1,000 mg/ IV Solution 100 mls @ 0 mls/hr IV .Q0M [facility]; Protocol Last Admin: 09/22/20 12:30 Dose: 40 mcg/kg/min, 24.624 mls/hr Documented by: Cisatracurium Besylate 200 mg/ (Sodium Chloride) 200 mls @ 5.61 mls/hr IV .Q24H [facility]; Protocol Last Admin: 09/22/20 12:31 Dose: 3 mcg/kg/min, 16.83 mls/hr Documented by: Fentanyl Citrate 1,000 mcg/ (Sodium Chloride) 100 mls @ 0 mls/hr IV .Q0M [facility]; Protocol Last Admin: 09/22/20 09:22 Dose: 1 mcg/kg/hr, 9.24 mls/hr Documented by: Insulin Aspart (Insulin Aspart (Novolog) 100 Unit/Ml Vial) 0 unit SQ Q6HR [facility]; Protocol Last Admin: 09/22/20 12:18 Dose: 4 unit Documented by: Lactulose (Lactulose 20 Gm/30 Ml Cup) 20 gm PO QID [facility] Last Admin: 09/22/20 12:25 Dose: 20 gm Documented by: Methylprednisolone Sodium Succinate (Methylprednisolone Sod Succi 125 Mg/2 Ml Vial) 60 mg IV Q6HR [facility] Last Admin: 09/22/20 12:19 Dose: 60 mg Documented by: Metoclopramide HCl (Metoclopramide 5 Mg/Ml 2 Ml Vial) 10 mg IVP Q6HR [facility] Last Admin: 09/22/20 12:25 Dose: Not Given Documented by: Metoprolol Tartrate (Metoprolol Tartrate 12.5 Mg Tab) 12.5 mg PO BID [facility] Last Admin: 09/22/20 08:48 Dose: Not Given Documented by: Nitroglycerin (Nitroglycerin Sl Tabs 0.4 Mg Tab) 0.4 mg SUBLINGUAL Q5M PRN PRN Reason: Chest Pain Last Admin: 09/07/20 03:35 Dose: 0.4 mg Documented by: Promethazine HCl (Promethazine Hcl 6.25 Mg/5 Ml Cup) 12.5 mg PO QID PRN PRN Reason: Cough Last Admin: 09/06/20 02:07 Dose: 12.5 mg Documented by: Zinc Sulfate (Zinc Sulfate 220 Mg Cap) 220 mg PO DAILY [facility] Last Admin: 09/22/20 08:49 Dose: 220 mg Documented by: Objective - Vital Signs Vital signs: Vital Signs Temp 98.6 F 09/21/20 20:00 Pulse 42 L 09/22/20 07:00 Resp 32 H 09/22/20 07:00 BP 140/72 09/16/20 22:00 Pulse Ox 92 L 09/22/20 07:00 Intake & Output 09/21/20 09/22/20 09/22/20 18:59 06:59 18:59 Intake Total 2080.299 1334.482 61.56 Output Total 1045 940 Balance 1035.299 394.482 61.56 Intake: IV 739 583 Dextrose 5% in Water 1, 200 000 ml @ 100 mls/hr IV . Q10H [facility] Rx#:[id number] Dextrose 5% in Water 1, 500 550 000 ml @ 50 mls/hr IV . Q20H [facility] Rx#:[id number] Pressure bag 39 33 Intake, IV Titration 551.299 751.482 61.56 Amount Amiodarone 450 mg In 205.004 Dextrose 5% in Water 250 ml @ 0.5 MG/MIN 16.667 mls/hr IV .Q15H [facility] Rx#: [id number] Cisatracurium 200 mg In 191.956 200 Sodium Chloride 0.9% 180 ml @ 1 MCG/KG/MIN 5.61 mls/hr IV .Q24H [facility] Rx#: [id number] fentaNYL (PF). 1,000 mcg 92.862 100 In Sodium Chloride 0.9% 80 ml @ Per Protocol IV . Q0M [facility] Rx#:[id number] propofoL 1,000 mg In 266.481 246.478 61.56 Empty Bag 1 bag @ Titrate IV .Q0M [facility] Rx#: [id number] Tube Feeding 360 Other 430 Output: Urine 1045 940 Stool 0 Other: Voiding Method Indwelling Catheter Indwelling Catheter ABP, PAP, CO, CI - Last Documented Arterial Blood Pressure 137/62 - Exam Gen: This is a 54-year-old male currently intubated and sedated. Temp is 97.6F, pulse is 40, respirations are 32, blood pressure is 136/63, oxygen saturation is 92% with an FiO2 of 60 percent HEENT: Head is atraumatic, normocephalic. Pupils equal, round. Sclerae is anicteric. NECK: Supple. No JVD. No lymphadenopathy. No thyromegaly. LUNGS: diminished breath sounds bilaterally with some scattered rhonchi and crackles noted. Tachypneic. No intercostal retractions. HEART: S1, S2 are muffled ABDOMEN: Soft. Obese. Bowel sounds are present. No masses. No tenderness. EXTREMITIES: No pedal edema. No calf tenderness. NEUROLOGICAL: Unable to completely assess as patient is intubated and sedated on paralytics - Labs CBC & Chem 7: 09/22/20 05:05 09/22/20 05:05 Labs: Abnormal Lab Results - Last 24 Hours (Table) 09/21/20 09/21/20 09/21/20 Range/Units 05:11 11:27 17:25 WBC (3.8-10.6) k/uL RBC (4.30-5.90) m/uL Hgb (13.0-17.5) gm/dL Hct (39.0-53.0) % Plt Count (150-450) k/uL Neutrophils # (1.3-7.7) k/uL Lymphocytes # (1.0-4.8) k/uL ABG pH (7.35-7.45) ABG pCO2 (35-45) mmHg ABG pO2 (83-108) mmHg ABG HCO3 (21-25) mmol/L ABG Total CO2 (19-24) mmol/L Potassium (3.5-5.1) mmol/L Carbon Dioxide (22-30) mmol/L BUN (9-20) mg/dL Glucose (74-99) mg/dL POC Glucose (mg/dL) 186 H 209 H (75-99) mg/dL Calcium (8.4-10.2) mg/dL Magnesium 3.0 H (1.6-2.3) mg/dL 09/21/20 09/22/20 09/22/20 Range/Units 23:51 05:05 05:05 WBC 12.2 H (3.8-10.6) k/uL RBC 3.34 L (4.30-5.90) m/uL Hgb 10.7 L (13.0-17.5) gm/dL Hct 31.1 L (39.0-53.0) % Plt Count 141 L (150-450) k/uL Neutrophils # 11.1 H (1.3-7.7) k/uL Lymphocytes # 0.4 L (1.0-4.8) k/uL ABG pH (7.35-7.45) ABG pCO2 (35-45) mmHg ABG pO2 (83-108) mmHg ABG HCO3 (21-25) mmol/L ABG Total CO2 (19-24) mmol/L Potassium 5.2 H (3.5-5.1) mmol/L Carbon Dioxide 33 H (22-30) mmol/L BUN 43 H (9-20) mg/dL Glucose 181 H (74-99) mg/dL POC Glucose (mg/dL) 227 H (75-99) mg/dL Calcium 7.8 L (8.4-10.2) mg/dL Magnesium (1.6-2.3) mg/dL 09/22/20 09/22/20 09/22/20 Range/Units 05:15 05:20 05:26 WBC (3.8-10.6) k/uL RBC (4.30-5.90) m/uL Hgb (13.0-17.5) gm/dL Hct (39.0-53.0) % Plt Count (150-450) k/uL Neutrophils # (1.3-7.7) k/uL Lymphocytes # (1.0-4.8) k/uL ABG pH 7.33 L (7.35-7.45) ABG pCO2 60 H (35-45) mmHg ABG pO2 71 L (83-108) mmHg ABG HCO3 32 H (21-25) mmol/L ABG Total CO2 33 H (19-24) mmol/L Potassium (3.5-5.1) mmol/L Carbon Dioxide (22-30) mmol/L BUN (9-20) mg/dL Glucose (74-99) mg/dL POC Glucose (mg/dL) 126 H 179 H (75-99) mg/dL Calcium (8.4-10.2) mg/dL Magnesium (1.6-2.3) mg/dL Assessment and Plan Assessment: -Acute hypoxic respiratory failure secondary to Covid 19 pneumonia, extensive interstitial pneumonia on mechanical ventilation -Acute lactic acidosis -Atrial fibrillation with fast ventricular rate -Change in mental status, acute metabolic encephalopathy -Elevated random blood glucose -Hypernatremia -Hypertension -Elevated troponin possibly secondary to type II acute myocardial infarction secondary to hypoxemia and COVID-19 -History of gastroesophageal reflux disease -GI prophylaxis with Pepcid -DVT prophylaxis with Lovenox -Full code Recommendations and discussion: Recommend to continue with current medications, management, and symptomatic treatment. Continued on IV Solu-Medrol along with Lovenox and vitamin and zinc supplements. Patient continues to be intubated and sedated with paralytics and maintained on Nimbex. Surgery consulted as patient has been on prolonged mechanical ventilation and unable to wean and plans are for tracheostomy and PEG tube placement today. Tube feedings are held for surgery. Shell Reprint Operator following closely. Cardiology also following and amiodarone has been discontinued patient's heart rate is currently in the 40s. Blood sugars elevated and will continue with Accu-Cheks and sliding scale every 6 hours. Pulmonary following closely. Sodium today is 138 and IV fluids have been discontinued. Due to multiple complex medical issues, prognosis remains extremely guarded. Further recommendations to follow. Time with Patient: Greater than 30
[2020-09-22 18:41] LABS: Glucose,Whole Blood 151 mg/dL (75-99)
--- NOTE | 2020-09-22 19:16 | XR ---
EXAMINATION TYPE: XR chest 1V portable DATE OF EXAM: 09/22/2020 COMPARISON: Yesterday HISTORY: Respiratory failure. TECHNIQUE: Single view FINDINGS: There is tracheostomy tube. There is diffuse extensive interstitial pulmonary infiltrates. Heart size is normal. There is left subclavian catheter with tip in the superior vena cava. IMPRESSION: There is moderate pulmonary interstitial pneumonia not significantly different than yeste rday.
[2020-09-22 23:43] LABS: Glucose,Whole Blood 172 mg/dL (75-99)
[2020-09-23 04:52] LABS: ABG Base Excess 5.3 mmol/L; ABG HCO3 31 mmol/L (21-25); ABG Oxygen Saturation 94.3 % (94-97); ABG PCO2 58 mmHg (35-45); ABG PH 7.34 (7.35-7.45); ABG PO2 71 mmHg (83-108); ABG TCO2 33 mmol/L (19-24); Allen Test Performed? Yes
[2020-09-23 05:17] LABS: Basophils # (A) 0.1 k/uL (0-0.2); Basophils % (A) 0 %; Eosinophils % (A) 0 %; HCT 33.6 % (39.0-53.0); HGB 11.3 gm/dL (13.0-17.5); Lymphocytes # (A) 0.5 k/uL (1.0-4.8); Lymphocytes % (A) 2 %; MCH 31.5 pg (25.0-35.0); MCHC 33.6 g/dL (31.0-37.0); MCV 93.8 fL (80.0-100.0); Mean Platelet Volume 9.7; Monocytes % (A) 5 %; Neutrophils # (A) 19.3 k/uL (1.3-7.7); Neutrophils % (A) 92 %; Platelet Count 162 k/uL (150-450); RBC 3.59 m/uL (4.30-5.90); RDW 15.1 % (11.5-15.5); WBC 20.9 k/uL (3.8-10.6)
[2020-09-23] MEDS: fentaNYL (PF). 1,000 MCG in SODIUM CHLORIDE 0.9% 80 ML IV SCH ×3 (05:23→22:07)
[2020-09-23 05:33] LABS: ALT 119 U/L (4-49); AST 52 U/L (17-59); African American GFR (CKD) >90 (>60 ml/min/1.73 sqM); Albumin 2.9 g/dL (3.5-5.0); Alkaline Phosphatase 72 U/L (38-126); Anion Gap 2 mmol/L; Blood Urea Nitrogen 43 mg/dL (9-20); Calcium 8.1 mg/dL (8.4-10.2); Carbon Dioxide 32 mmol/L (22-30); Chloride 104 mmol/L (98-107); Glucose 174 mg/dL (74-99); Non-African American GFR(CKD) >90 (>60 ml/min/1.73 sqM); Sodium 138 mmol/L (137-145); Total Bilirubin 0.6 mg/dL (0.2-1.3); Total Protein 5.1 g/dL (6.3-8.2)
[2020-09-23] MEDS: methylPREDNISolone SOD SUCCI 125 MG/2 ML VIAL IV SCH ×3 (06:08→17:47)
[2020-09-23 06:09] LABS: Potassium 5.2 mmol/L (3.5-5.1)
[2020-09-23] MEDS: INSULIN ASPART (NovoLOG) 100 UNIT/ML VIAL SQ SCH ×3 (06:09→17:49)
--- NOTE | 2020-09-23 06:15 | XR ---
EXAMINATION TYPE: XR chest 1V portable DATE OF EXAM: 09/23/2020 CLINICAL HISTORY: Difficulty breathing and covid progress study. TECHNIQUE: Single AP portable upright view of the chest is obtained. COMPARISON: Chest x-ray from one day earlier and older studies. FINDINGS: Stable tracheostomy tube. Stable left-sided PICC line. Bilateral multifocal and confluent opacities redemonstrated greatest in the mid to lower lungs with left more prominent than right. Cardiac silhouette size stable and within normal limits. Osseous stru ctures are intact. IMPRESSION: Bilateral multifocal and confluent opacities left greater than right consistent with covi d-19 infection are redemonstrated. No significant change from one day earlier.
[2020-09-23] MEDS: ALBUTEROL HFA INHALER INHALATION SCH ×4 (07:46→19:45)
[2020-09-23 08:17] LABS: Glucose,Whole Blood 196 mg/dL (75-99)
[2020-09-23] MEDS: ENOXAPARIN 40 MG/0.4 ML SYRINGE SQ SCH (08:38)
[2020-09-23] MEDS: CISATRACURIUM 200 MG in SODIUM CHLORIDE 0.9% 180 ML IV SCH ×2 (08:42→22:31)
--- NOTE | 2020-09-23 09:49 | P.PN ---
Subjective Progress Note Date: 09/23/20 Principal diagnosis: Hypoxemic respiratory failure. 54-year-old white male patient who is an ex smoker, carries [id number] smoking history quit smoking 1 year ago in May, history of hypertension and gout who sees Dr. Contreras, presented to the emergency department on 08/02/2020 with complaints of worsening shortness of breath, cough, and patient was diagnosed with Covid 19 one week ago, was tested at [facility] per Dr. Contreras's order. 2 weeks ago he had symptoms of flulike illness, sore throat, shortness of breath, weakness, muscle aches which progressively became worse, and patient developed worsening shortness of breath and had difficulty breathing and ambulating at home. He was placed on Decadron [address] Contreras and he has 1-1/2 days worth left of it. Chest x-ray in the emergency department showed bilateral interstitial pneumonia. White blood cell count was 33.1, d-dimer was greater than 35.2, CO2 is 16, the rest of electrolytes were unremarkable, B1 is 35 creatinine is 1.04, plasma lactic acid is 4.5, patient was given IV fluids and lactic acid came down to 1.8, total bilirubin was 1.6, AST is 107, ALT is 48, alkaline phosphatase is 114, LDH is 5924, first troponin was 4.190, and the second one went up to 6.960. CRP is 180.3, pro-calcitonin level is 0.33, urinalysis showed 1+ protein, but no definite sign of infection, pulse ox is 86 on room air, patient has significant shortness of breath, and was placed on BiPAP support, currently with pressures of 12/6, and FiO2 of 100% on which he remains this morning, he is afebrile, hemodynamically he is stable, she was started on IV Decadron, we'll start him on intermediate dose of Lovenox 50 mg every 12 hours, CTA chest shows no evidence of pulmonary embolism, and extensive pulmonary infiltrates that are mostly interstitial consistent with severe interstitial pneumonia. Progress note dated 09/04/2020. 54-year-old male, admitted with a diagnosis of COVID 19 pneumonitis. Currently, he is on BiPAP at 12/6 and 90%. FiO2 will be dropped down to 80%. In addition, he is getting saline at 75 mL an hour. The patient's doing better today. He states that he feels better. He still short of breath with activity. I did tell him today to make sure he moves around in bed when he is laying in bed. White count 29.3, hemoglobin 14.6, hematocrit 42.7, platelet count 140,000. D- dimer greater than 34.10. Sodium 136, potassium 5.1, chlorides 105, CO2 25, anion gap 6, BUN 39, creatinine 0.9. LDH is 3965. C-reactive protein 143. Chest x-ray shows a worsening pattern of bilateral airspace disease. Progress note dated 09/05/2020. 54-year-old male, admitted with a diagnosis of COVID 19 pneumonitis. He remains on BiPAP with an FiO2 of 80%. Settings included an IPAP 12, EPAP 6. The patient states that he feels a bit better. He is getting saline at 75 mL an hour. He feels like he is breathing is improved. He does know to move about in bed. No new laboratory data today. His most recent chest x-ray was from yesterday and was reviewed. The patient's on appropriate medications. Progress note dated 09/06/2020. 54-year-old male, seen again today. The patient is on BiPAP, settings of IPAP 12, EPAP 6, and 90%. He is also getting saline at 75 mL an hour. Was admitted with a diagnosis of acute hypoxemic respiratory failure secondary to COVID 19 pneumonia. The patient feels about the same. No better or no worse. He will have a chest x-ray tomorrow. Labs are reviewed. White count 19.3, hemoglobin 15, hematocrit 43.9, and platelet count 92,000. Sodium 135, potassium 4.9, chlorides 109, CO2 20, anion gap 6, BUN 34, and creatinine 0.92. There is no recent chest x-ray to review. Patient was reevaluated today on 09/19/2020, remains intubated and sedated, he is also paralyzed, remains on assist control rate of 32, tidal volume is 420 FiO2 65% and PEEP of 16. ABG showed a pO2 of 72 pCO2 of 63 pH of 7.32. His peak airway pressure is in the high 30s and plateau pressure is 31. Patient remains on IV fluid at 100 mL/h he is on Nimbex at 3, fentanyl at 1 on propofol at 40. He is on tube feeding using vital HP at goal. Today considering his sodium being elevated we have transitioned his IV fluids from 0.9 normal saline to D5W at 100 mL per hour and the patient will be receiving free water flushes via nasogastric tube. Chest x-ray is basically about the same, continues show by basilar patchy infiltrates, consistent with COVID-19 pneumonia, not much of a change is noted in the last couple of days. Hemodynamically gomez, the patient is stable, not requiring any pressors. Reevaluated today on 09/20/2020, patient remains intubated and sedated and mechanically ventilated and paralysis. On assist control rate of 32 tidal volume 420 FiO2 60% PEEP of 16. ABG showed a pO2 of 69 pCO2 of 62 pH of 7.32. Chest x-ray is basically about the same continues to by basilar patchy infiltrates. Remains on propofol at 20 Nimbex at 3 fentanyl at 1 D5W at 100 mL per hour. Remains on tube feeding. He is also receiving free water flushes. He is on enteral feeding using vital HP at 40 mL per hour. CBC is relatively normal hemoglobin is 10.7. Electrolytes sodium remains elevated at 145, however improving from 149 yesterday. BUN is 51 creatinine 1.03. Calcium is 7.9. No inflammatory markers were ordered today. Patient was reevaluated today on 09/21/2020, remains in the ICU, intubated and mechanically ventilated, sedated and paralyzed. Patient is on assist control rate of 32 tidal volume 420 FiO2 60% and PEEP of 16. ABG showed a pO2 of 65 pCO2 of 62 pH of 7.32. Remains on propofol at 25, Nimbex S3 fentanyl at 1 D5W at 100 mL per hour, and vital HP 40/40. Chest x-ray is showing slight improvement in his bilateral patchy infiltrates. Patient has not had a bowel movement in almost over a week, hence we'll start the patient on lactulose and Reglan. Today I have instructed the nurses to consider pronating the patient at least try presently position and hopefully address Nimbex holidays. However the patient is to be prone doubt other chemo on Nimbex. His IV fluid remains D5W and I cut it down to 50 mL per hour. After evaluating the patient, and patient was off Nimbex for a very short period of time developed atrial fibrillation with RVR, Lasix the patient on amiodarone as per protocol, bolused with amiodarone. And he had to go back on Nimbex. Progress note dated 09/22/2020. 54-year-old male, again seen, in room 250. The patient was admitted back on 09/03/2020. He was admitted with a diagnosis of acute hypoxemic respiratory failure secondary to COVID 19 pneumonia. The patient remains on the ventilator. He is on the volume assist control mode, rate of 32, tidal volume 420, FiO2 60%, and PEEP of 16. Blood gases show a PaO2 of 71, PaCO2 60, pH 7.33. The patient will need a tracheostomy and PEG tube placement. Currently, he is in the prone position. He is getting saline at 20 mL an hour, propofol at 40 mcg/kg/m, Nimbex at 3 mcg/kg/m, amiodarone at 0.5 mg/m D5W at 50 mL an hour, which will be discontinued, fentanyl 1 mcg/kg/h, and vital high protein at 40 mL an hour, which is goal. White count 12.2, hemoglobin 10.7, hematocrit 31.1, and platelet count 141,000. Sodium 138, potassium 5.2, chlorides 103, CO2 33, anion gap 2, and BUN and creatinine were 43 and 0.77 respectively., Chest x-ray shows bilateral patchy infiltrates. Progress note dated 09/23/2020. 54-year-old male, again seen in the intensive care unit. The patient was admitted on September 02, and intubated on September 12. The patient underwent tracheostomy tube placement and PEG tube placement yesterday, September 22. Currently, he remains on the I am assist control mode, rate 32, tidal volume 420, FiO2 80%, and PEEP of 16. We are going to increase the PEEP up to 20, and try to wean the FiO2 down further. He currently remains on Nimbex at 2 mcg/kg/m, propofol at 50 mcg/kg/m, fentanyl at 1 mcg/kg/h, saline at 20 mL an hour, and tube feedings with vital high protein at 40 mL an hour, which is goal. White count 20.9, he will monitor him 0.3, hematocrit 33.6, and platelet count is normal. Sodium 138, potassium 5.2, chlorides 104, CO2 32, anion gap 2, BUN 43, creatinine 0.83. Chest x-ray showed bilateral multifocal and confluent opacities, left greater than right, consistent with the diagnosis. Objective - Vital Signs Vital signs: Vital Signs Temp 98.8 F 09/23/20 08:00 Pulse 56 L 09/23/20 08:00 Resp 32 H 09/23/20 08:00 BP 151/69 09/23/20 08:00 Pulse Ox 89 L 09/23/20 08:00 Intake & Output 09/22/20 09/23/20 09/23/20 18:59 06:59 18:59 Intake Total 685.935 514.529 214.012 Output Total 795 1035 125 Balance -109.065 -520.471 89.012 Weight 102.6 kg 100.2 kg Intake: IV 36 33 26 0.9 NS 20 Dextrose 5% in Water 1, 0 000 ml @ 50 mls/hr IV . Q20H [facility] Rx#:[id number] Pressure bag 36 33 6 Intake, IV Titration 649.935 481.529 188.012 Amount Cisatracurium 200 mg In 302.005 17.111 142.868 Sodium Chloride 0.9% 180 ml @ 1 MCG/KG/MIN 5.61 mls/hr IV .Q24H [facility] Rx#: [id number] fentaNYL (PF). 1,000 mcg 99.638 184.800 In Sodium Chloride 0.9% 80 ml @ Per Protocol IV . Q0M [facility] Rx#:[id number] propofoL 1,000 mg In 248.292 279.618 45.144 Empty Bag 1 bag @ Titrate IV .Q0M SPENSER Rx#: [id number] Tube Feeding 0 0 Output: Urine 785 1035 125 Estimated Blood Loss 10 Other: Voiding Method Indwelling Catheter Indwelling Catheter Indwelling Catheter ABP, PAP, CO, CI - Last Documented Arterial Blood Pressure 146/58 - Exam Currently sedated, and paralyzed. There is a midline tracheostomy. The patient saturations are 89%. HEENT examination is grossly unremarkable. Neck supple. Full range of motion. No adenopathy thyromegaly or neck vein distention. Cardiovascular examination reveals regular rhythm rate. S1-S2 normal. No S3 or S4. No discernible murmur noted. Heart rate 56 bpm. Lungs reveal coarse bilateral rhonchi, and scattered diffuse crackles. No wheezes are noted. Breath sounds are equal bilaterally. Abdomen soft bowel sounds are heard. No masses or tenderness. A PEG tube is noted. Extremities are intact. No cyanosis clubbing or edema. Skin is without rash or lesion. Neurologic examination cannot be assessed as the patient's currently sedated and paralyzed. - Labs CBC & Chem 7: 09/23/20 04:15 09/23/20 04:15 Labs: Abnormal Lab Results - Last 24 Hours (Table) 09/22/20 09/22/20 09/22/20 Range/Units 11:58 18:39 23:41 WBC (3.8-10.6) k/uL RBC (4.30-5.90) m/uL Hgb (13.0-17.5) gm/dL Hct (39.0-53.0) % Neutrophils # (1.3-7.7) k/uL Lymphocytes # (1.0-4.8) k/uL ABG pH (7.35-7.45) ABG pCO2 (35-45) mmHg ABG pO2 (83-108) mmHg ABG HCO3 (21-25) mmol/L ABG Total CO2 (19-24) mmol/L Potassium (3.5-5.1) mmol/L Carbon Dioxide (22-30) mmol/L BUN (9-20) mg/dL Glucose (74-99) mg/dL POC Glucose (mg/dL) 172 H 151 H 172 H (75-99) mg/dL Calcium (8.4-10.2) mg/dL ALT (4-49) U/L Total Protein (6.3-8.2) g/dL Albumin (3.5-5.0) g/dL 09/23/20 09/23/20 09/23/20 Range/Units 04:15 04:15 04:45 WBC 20.9 H (3.8-10.6) k/uL RBC 3.59 L (4.30-5.90) m/uL Hgb 11.3 L (13.0-17.5) gm/dL Hct 33.6 L (39.0-53.0) % Neutrophils # 19.3 H (1.3-7.7) k/uL Lymphocytes # 0.5 L (1.0-4.8) k/uL ABG pH 7.34 L (7.35-7.45) ABG pCO2 58 H (35-45) mmHg ABG pO2 71 L (83-108) mmHg ABG HCO3 31 H (21-25) mmol/L ABG Total CO2 33 H (19-24) mmol/L Potassium 5.2 H (3.5-5.1) mmol/L Carbon Dioxide 32 H (22-30) mmol/L BUN 43 H (9-20) mg/dL Glucose 174 H (74-99) mg/dL POC Glucose (mg/dL) (75-99) mg/dL Calcium 8.1 L (8.4-10.2) mg/dL ALT 119 H (4-49) U/L Total Protein 5.1 L (6.3-8.2) g/dL Albumin 2.9 L (3.5-5.0) g/dL 09/23/20 Range/Units 05:51 WBC (3.8-10.6) k/uL RBC (4.30-5.90) m/uL Hgb (13.0-17.5) gm/dL Hct (39.0-53.0) % Neutrophils # (1.3-7.7) k/uL Lymphocytes # (1.0-4.8) k/uL ABG pH (7.35-7.45) ABG pCO2 (35-45) mmHg ABG pO2 (83-108) mmHg ABG HCO3 (21-25) mmol/L ABG Total CO2 (19-24) mmol/L Potassium (3.5-5.1) mmol/L Carbon Dioxide (22-30) mmol/L BUN (9-20) mg/dL Glucose (74-99) mg/dL POC Glucose (mg/dL) 196 H (75-99) mg/dL Calcium (8.4-10.2) mg/dL ALT (4-49) U/L Total Protein (6.3-8.2) g/dL Albumin (3.5-5.0) g/dL Assessment and Plan Assessment: Acute hypoxemic respiratory failure secondary to COVID 19 pneumonitis, and secondary acute respiratory distress syndrome, with admission to the hospital on September 02, and intubation on 09/12/2020. Status post tracheostomy tube, and PEG tube placement, 09/22/2020, for failure to wean from mechanical ventilation. Elevated inflammatory markers secondary to above. History of hypertension. Former tobacco use. Mildly elevated troponins, without chest pain. New-onset atrial fibrillation with RVR. Lactic acidosis. No computed tomography scan evidence of pulmonary embolism. Plan: Plan dated 09/04/2020. The patient is doing a bit better today. We are starting to wean down his FiO2. Additional recommendations and suggestions are forthcoming. The patient was outside the window for REM. The patient is currently on Lovenox, and Decadron. Additional recommendations and suggestions are forthcoming. We'll continue to follow. Prognosis is guarded. Plan dated 09/05/2020. Clinically, the patient feels a bit better today. He seems to be less short of breath. He is on BiPAP at 12/6 and 80%. The patient's on appropriate medications. I did tell him to move about all he is in bed. Right side down, left side down, supine, and prone. The patient is getting the appropriate vitamins, as well as Lovenox and Decadron. He was outside the window for REM. We will continue to follow and make recommendations were appropriate. Plan dated 09/06/2020. His oxygen requiring has gone up by 10%. Yesterday, he was on 80%. He's feeling about the same, no better, and no worse. He is receiving all appropriate medications including Lovenox, Decadron, vitamins, etc. He was outside the window for REM. We will continue to follow him closely. His labs and medications are reviewed. He will have a chest x-ray in the morning. No additional recommendations are made. Prognosis is guarded. Plan dated 09/22/2020. The patient has been here in the hospital now for 19 days. The patient was adm itted back on 09/03/2020. The patient has been on the mechanical ventilator for some quite some time. The patient will need tracheostomy and PEG tube placement. We'll consult surgery for that. Additional recommendations and suggestions are forthcoming. The patient D5W IV will be discontinued. We will attempt to get the patient off of Nimbex first. The patient is currently receiving nutrition with vital high protein at goal at 40 mL an hour. We will continue to follow the patient make recommendations were appropriate. Overall prognosis remains guarded. Additional recommendations and suggestions are forthcoming. Plan dated 09/23/2020. The patient did have a tracheostomy tube, and PEG tube placement done yesterday by surgery. I appreciate that. The patient remains on Nimbex, propofol, and fentanyl. Tube feeds will be resumed today. His PEEP will be increased from 16 up to 20. We'll attempt to wean the FiO2 further. Additional recommendations and suggestions are forthcoming. Labs, chest x-ray, medications, all reviewed. Prognosis is very guarded. We will continue to follow the patient. Time with Patient: Greater than 30
[2020-09-23] MEDS: allopurinoL 300 MG TAB PO SCH (10:23)
[2020-09-23] MEDS: ASCORBIC ACID 500 MG TAB PO SCH ×2 (10:23→21:48)
[2020-09-23] MEDS: CHOLECALCIFEROL 25 MCG (1000 IU) TABLET PO SCH (10:23)
[2020-09-23] MEDS: ZINC SULFATE 220 MG CAP PO SCH (10:23)
[2020-09-23] MEDS: ATORVASTATIN 80 MG TAB PO SCH (10:24)
[2020-09-23] MEDS: FAMOTIDINE 20 MG TAB PO SCH ×2 (10:24→21:48)
[2020-09-23] MEDS: ASPIRIN 81 MG PO SCH (10:24)
[2020-09-23] MEDS: METOPROLOL TARTRATE 12.5 MG TAB PO SCH ×2 (10:24→21:48)
[2020-09-23] MEDS: amLODIPine 10 MG TAB PO SCH (10:24)
[2020-09-23] MEDS: CHLORHEXIDINE GLUCONATE 15 ML CUP MUCOUS MEM SCH ×2 (10:24→21:48)
[2020-09-23] MEDS: LACTULOSE 20 GM/30 ML CUP PO SCH ×4 (10:25→22:11)
[2020-09-23 11:22] LABS: Glucose,Whole Blood 178 mg/dL (75-99)
--- NOTE | 2020-09-23 12:58 | P.PN ---
Subjective Progress Note Date: 09/23/20 CHIEF COMPLAINT: COVID-19 pneumonia HISTORY OF PRESENT ILLNESS: Patient is in the ICU and is intubated. He is status post tracheostomy and PEG tube placement. Tube feedings will be started today. Afebrile. WBC is up at 20.9 PHYSICAL EXAM: VITAL SIGNS: Reviewed. GENERAL: Well-developed in no acute distress. HEENT: Moist buccal mucosa. Head is atraumatic, normocephalic. Tracheostomy site clean dry and intact ABDOMEN: Soft. Nondistended. Nontender. PEG tube site clean dry and intact NEUROLOGIC: Intubated and sedated ASSESSMENT: 1. Acute hypoxic respiratory failure due to COVID-19 pneumonia with prolonged mechanical ventilation status post tracheostomy placement 2. Moderate protein calorie malnutrition status post PEG tube placement PLAN: -Start tube feedings and titrate per dietitian recommendations -Continue supportive care -Continue ICU management Physician Element Burner note has been reviewed by physician. Signing provider agrees with the documented findings, assessment, and plan of care. Objective - Vital Signs Vital signs: Vital Signs Temp 98.8 F 09/23/20 08:00 Pulse 77 09/23/20 11:00 Resp 32 H 09/23/20 11:00 BP 153/72 09/23/20 11:00 Pulse Ox 88 L 09/23/20 11:00 Intake & Output 09/22/20 09/23/20 09/23/20 18:59 06:59 18:59 Intake Total 685.935 514.529 470.740 Output Total 795 1035 400 Balance -109.065 -520.471 70.740 Weight 102.6 kg 100.2 kg 100.2 kg Intake: IV 36 33 65 0.9 NS 50 Dextrose 5% in Water 1, 0 000 ml @ 50 mls/hr IV . Q20H [facility] Rx#:[id number] Pressure bag 36 33 15 Intake, IV Titration 649.935 481.529 345.740 Amount Cisatracurium 200 mg In 302.005 17.111 146.234 Sodium Chloride 0.9% 180 ml @ 1 MCG/KG/MIN 5.61 mls/hr IV .Q24H [facility] Rx#: [id number] fentaNYL (PF). 1,000 mcg 99.638 184.800 54.362 In Sodium Chloride 0.9% 80 ml @ Per Protocol IV . Q0M [facility] Rx#:[id number] propofoL 1,000 mg In 248.292 279.618 145.144 Empty Bag 1 bag @ Titrate IV .Q0M [facility] Rx#: [id number] Tube Feeding 0 0 Other 60 Output: Urine 785 1035 400 Estimated Blood Loss 10 Other: Voiding Method Indwelling Catheter Indwelling Catheter Indwelling Catheter ABP, PAP, CO, CI - Last Documented Arterial Blood Pressure 197/73 - Labs CBC & Chem 7: 09/23/20 04:15 09/23/20 04:15 Labs: Abnormal Lab Results - Last 24 Hours (Table) 09/22/20 09/22/20 09/23/20 Range/Units 18:39 23:41 04:15 WBC 20.9 H (3.8-10.6) k/uL RBC 3.59 L (4.30-5.90) m/uL Hgb 11.3 L (13.0-17.5) gm/dL Hct 33.6 L (39.0-53.0) % Neutrophils # 19.3 H (1.3-7.7) k/uL Lymphocytes # 0.5 L (1.0-4.8) k/uL ABG pH (7.35-7.45) ABG pCO2 (35-45) mmHg ABG pO2 (83-108) mmHg ABG HCO3 (21-25) mmol/L ABG Total CO2 (19-24) mmol/L Potassium (3.5-5.1) mmol/L Carbon Dioxide (22-30) mmol/L BUN (9-20) mg/dL Glucose (74-99) mg/dL POC Glucose (mg/dL) 151 H 172 H (75-99) mg/dL Calcium (8.4-10.2) mg/dL ALT (4-49) U/L Total Protein (6.3-8.2) g/dL Albumin (3.5-5.0) g/dL 09/23/20 09/23/20 09/23/20 Range/Units 04:15 04:45 05:51 WBC (3.8-10.6) k/uL RBC (4.30-5.90) m/uL Hgb (13.0-17.5) gm/dL Hct (39.0-53.0) % Neutrophils # (1.3-7.7) k/uL Lymphocytes # (1.0-4.8) k/uL ABG pH 7.34 L (7.35-7.45) ABG pCO2 58 H (35-45) mmHg ABG pO2 71 L (83-108) mmHg ABG HCO3 31 H (21-25) mmol/L ABG Total CO2 33 H (19-24) mmol/L Potassium 5.2 H (3.5-5.1) mmol/L Carbon Dioxide 32 H (22-30) mmol/L BUN 43 H (9-20) mg/dL Glucose 174 H (74-99) mg/dL POC Glucose (mg/dL) 196 H (75-99) mg/dL Calcium 8.1 L (8.4-10.2) mg/dL ALT 119 H (4-49) U/L Total Protein 5.1 L (6.3-8.2) g/dL Albumin 2.9 L (3.5-5.0) g/dL 09/23/20 Range/Units 11:20 WBC (3.8-10.6) k/uL RBC (4.30-5.90) m/uL Hgb (13.0-17.5) gm/dL Hct (39.0-53.0) % Neutrophils # (1.3-7.7) k/uL Lymphocytes # (1.0-4.8) k/uL ABG pH (7.35-7.45) ABG pCO2 (35-45) mmHg ABG pO2 (83-108) mmHg ABG HCO3 (21-25) mmol/L ABG Total CO2 (19-24) mmol/L Potassium (3.5-5.1) mmol/L Carbon Dioxide (22-30) mmol/L BUN (9-20) mg/dL Glucose (74-99) mg/dL POC Glucose (mg/dL) 178 H (75-99) mg/dL Calcium (8.4-10.2) mg/dL ALT (4-49) U/L Total Protein (6.3-8.2) g/dL Albumin (3.5-5.0) g/dL
--- NOTE | 2020-09-23 15:21 | P.PN ---
Subjective Progress Note Date: 09/23/20 This is a 54-year-old male who was recently admitted with acute hypoxic respiratory failure secondary to COVID-19 pneumonia and is being closely monitored. Continues to remain on mechanical ventilation currently sedated. Patient has had prolonged hospitalization with unsuccessful attempts at weaning and surgery has been consulted for tracheostomy along with PEG tube placement. Patient was on D5 water for hypernatremia and will be discontinued. Tube feedings on hold for surgery today and will resume once PEG tube is okay for use. Per nursing staff patient has also been in the prone position since yesterday evening into this morning and tolerated. Amiodarone has also been discontinued as patient is currently bradycardic. Pulmonary retort kiln burner following closely. Patient is maintained on sliding scale and will monitor closely once tube feedings have resumed. 09/23/2020 Patient is seen in follow-up continues to be closely monitored in the ICU maintained on mechanical vent via tracheostomy as he underwent trach and PEG tube placement yesterday with surgery. Tube feedings to resume via PEG tube this afternoon after clearance from surgery. Chest x-ray today shows bilateral multifocal and confluent opacities left greater than right consistent with COVID-19 again redemonstrated with no significant change from yesterday. Pulmonary also following. White blood count at 20.9, hemoglobin is 11.3, current sodium is 138 with a potassium of 5.2, and creatinine is 0.83. Review of systems: Unable to obtain as patient continues to be intubated and sedated Active Medications Acetaminophen (Acetaminophen Tab 325 Mg Tab) 650 mg PO Q6HR PRN PRN Reason: Fever and/ or Pain Last Admin: 09/16/20 11:48 Dose: 650 mg Documented by: Albuterol Sulfate (Albuterol Hfa Inhaler) 2 puff INHALATION RT-QID PRN PRN Reason: Shortness Of Breath Last Admin: 09/04/20 17:46 Dose: 2 puff Documented by: Albuterol Sulfate (Albuterol Hfa Inhaler) 2 puff INHALATION RT-QID [facility] Last Admin: 09/23/20 13:12 Dose: 2 puff Documented by: Allopurinol (Allopurinol 300 Mg Tab) 300 mg PO DAILY [facility] Last Admin: 09/23/20 10:23 Dose: 300 mg Documented by: Amlodipine Besylate (Amlodipine 10 Mg Tab) 10 mg PO DAILY [facility] Last Admin: 09/23/20 10:24 Dose: 10 mg Documented by: Ascorbic Acid (Ascorbic Acid 500 Mg Tab) 500 mg PO BID [facility] Last Admin: 09/23/20 10:23 Dose: 500 mg Documented by: Aspirin (Aspirin 81 Mg) 81 mg PO DAILY [facility] Last Admin: 09/23/20 10:24 Dose: 81 mg Documented by: Atorvastatin Calcium (Atorvastatin 80 Mg Tab) 80 mg PO DAILY [facility] Last Admin: 09/23/20 10:24 Dose: 80 mg Documented by: Chlorhexidine Gluconate (Chlorhexidine Gluconate 15 Ml Cup) 15 ml MUCOUS MEM BID [facility] Last Admin: 09/23/20 10:24 Dose: 15 ml Documented by: Cholecalciferol (Cholecalciferol 25 Mcg (1000 Iu) Tablet) 125 mcg PO DAILY [facility] Last Admin: 09/23/20 10:23 Dose: 125 mcg Documented by: Enoxaparin Sodium (Enoxaparin 40 Mg/0.4 Ml Syringe) 40 mg SQ DAILY [facility] Last Admin: 09/23/20 08:38 Dose: 40 mg Documented by: Famotidine (Famotidine 20 Mg Tab) 20 mg PO BID [facility] Last Admin: 09/23/20 10:24 Dose: 20 mg Documented by: Heparin Sodium (Porcine) (Heparin Sodium 1,000 Un/Ml (10ml Vl)) 0 unit IV PER PROTOCOL PRN; Protocol PRN Reason: Low PTT Last Admin: 09/03/20 17:35 Dose: 4,900 unit Documented by: Propofol 1,000 mg/ IV Solution 100 mls @ 0 mls/hr IV .Q0M [facility]; Protocol Last Admin: 09/23/20 11:23 Dose: 50 mcg/kg/min, 30.06 mls/hr Documented by: Cisatracurium Besylate 200 mg/ (Sodium Chloride) 200 mls @ 5.61 mls/hr IV .Q24H [facility]; Protocol Last Titration: 09/23/20 09:00 Dose: 3 mcg/kg/min, 16.83 mls/hr Documented by: Fentanyl Citrate 1,000 mcg/ (Sodium Chloride) 100 mls @ 0 mls/hr IV .Q0M [facility]; Protocol Last Titration: 09/23/20 13:48 Dose: 1 mcg/kg/hr, 9.24 mls/hr Documented by: Insulin Aspart (Insulin Aspart (Novolog) 100 Unit/Ml Vial) 0 unit SQ Q6HR [facility]; Protocol Last Admin: 09/23/20 11:26 Dose: 4 unit Documented by: Lactulose (Lactulose 20 Gm/30 Ml Cup) 20 gm PO QID [facility] Last Admin: 09/23/20 14:07 Dose: 20 gm Documented by: Methylprednisolone Sodium Succinate (Methylprednisolone Sod Succi 125 Mg/2 Ml V ial) 60 mg IV Q6HR [facility] Last Admin: 09/23/20 11:26 Dose: 60 mg Documented by: Metoprolol Tartrate (Metoprolol Tartrate 12.5 Mg Tab) 12.5 mg PO BID [facility] Last Admin: 09/23/20 10:24 Dose: 12.5 mg Documented by: Nitroglycerin (Nitroglycerin Sl Tabs 0.4 Mg Tab) 0.4 mg SUBLINGUAL Q5M PRN PRN Reason: Chest Pain Last Admin: 09/07/20 03:35 Dose: 0.4 mg Documented by: Promethazine HCl (Promethazine Hcl 6.25 Mg/5 Ml Cup) 12.5 mg PO QID PRN PRN Reason: Cough Last Admin: 09/06/20 02:07 Dose: 12.5 mg Documented by: Zinc Sulfate (Zinc Sulfate 220 Mg Cap) 220 mg PO DAILY [facility] Last Admin: 09/23/20 10:23 Dose: 220 mg Documented by: Objective - Vital Signs Vital signs: Vital Signs Temp 98.8 F 09/23/20 08:00 Pulse 56 L 09/23/20 08:00 Resp 32 H 09/23/20 08:00 BP 151/69 09/23/20 08:00 Pulse Ox 89 L 09/23/20 08:00 Intake & Output 09/22/20 09/23/20 09/23/20 18:59 06:59 18:59 Intake Total 685.935 514.529 214.012 Output Total 795 1035 125 Balance -109.065 -520.471 89.012 Weight 102.6 kg 100.2 kg Intake: IV 36 33 26 0.9 NS 20 Dextrose 5% in Water 1, 0 000 ml @ 50 mls/hr IV . Q20H [facility] Rx#:[id number] Pressure bag 36 33 6 Intake, IV Titration 649.935 481.529 188.012 Amount Cisatracurium 200 mg In 302.005 17.111 142.868 Sodium Chloride 0.9% 180 ml @ 1 MCG/KG/MIN 5.61 mls/hr IV .Q24H [facility] Rx#: [id number] fentaNYL (PF). 1,000 mcg 99.638 184.800 In Sodium Chloride 0.9% 80 ml @ Per Protocol IV . Q0M [facility] Rx#:[id number] propofoL 1,000 mg In 248.292 279.618 45.144 Empty Bag 1 bag @ Titrate IV .Q0M [facility] Rx#: [id number] Tube Feeding 0 0 Output: Urine 785 1035 125 Estimated Blood Loss 10 Other: Voiding Method Indwelling Catheter Indwelling Catheter Indwelling Catheter ABP, PAP, CO, CI - Last Documented Arterial Blood Pressure 146/58 - Exam Gen: This is a 54-year-old male currently intubated and sedated. HEENT: Head is atraumatic, normocephalic. Pupils equal, round. Sclerae is a nicteric. NECK: Supple. No JVD. No lymphadenopathy. No thyromegaly. LUNGS: diminished breath sounds bilaterally with some scattered rhonchi and crackles noted. Tachypneic. No intercostal retractions. HEART: S1, S2 are muffled ABDOMEN: Soft. Obese. Bowel sounds are present. No masses. No tenderness. EXTREMITIES: No pedal edema. No calf tenderness. NEUROLOGICAL: Unable to completely assess as patient is intubated and sedated on paralytics - Labs CBC & Chem 7: 09/23/20 04:15 09/23/20 04:15 Labs: Abnormal Lab Results - Last 24 Hours (Table) 09/22/20 09/22/20 09/22/20 Range/Units 11:58 18:39 23:41 WBC (3.8-10.6) k/uL RBC (4.30-5.90) m/uL Hgb (13.0-17.5) gm/dL Hct (39.0-53.0) % Neutrophils # (1.3-7.7) k/uL Lymphocytes # (1.0-4.8) k/uL ABG pH (7.35-7.45) ABG pCO2 (35-45) mmHg ABG pO2 (83-108) mmHg ABG HCO3 (21-25) mmol/L ABG Total CO2 (19-24) mmol/L Potassium (3.5-5.1) mmol/L Carbon Dioxide (22-30) mmol/L BUN (9-20) mg/dL Glucose (74-99) mg/dL POC Glucose (mg/dL) 172 H 151 H 172 H (75-99) mg/dL Calcium (8.4-10.2) mg/dL ALT (4-49) U/L Total Protein (6.3-8.2) g/dL Albumin (3.5-5.0) g/dL 09/23/20 09/23/20 09/23/20 Range/Units 04:15 04:15 04:45 WBC 20.9 H (3.8-10.6) k/uL RBC 3.59 L (4.30-5.90) m/uL Hgb 11.3 L (13.0-17.5) gm/dL Hct 33.6 L (39.0-53.0) % Neutrophils # 19.3 H (1.3-7.7) k/uL Lymphocytes # 0.5 L (1.0-4.8) k/uL ABG pH 7.34 L (7.35-7.45) ABG pCO2 58 H (35-45) mmHg ABG pO2 71 L (83-108) mmHg ABG HCO3 31 H (21-25) mmol/L ABG Total CO2 33 H (19-24) mmol/L Potassium 5.2 H (3.5-5.1) mmol/L Carbon Dioxide 32 H (22-30) mmol/L BUN 43 H (9-20) mg/dL Glucose 174 H (74-99) mg/dL POC Glucose (mg/dL) (75-99) mg/dL Calcium 8.1 L (8.4-10.2) mg/dL ALT 119 H (4-49) U/L Total Protein 5.1 L (6.3-8.2) g/dL Albumin 2.9 L (3.5-5.0) g/dL 09/23/20 Range/Units 05:51 WBC (3.8-10.6) k/uL RBC (4.30-5.90) m/uL Hgb (13.0-17.5) gm/dL Hct (39.0-53.0) % Neutrophils # (1.3-7.7) k/uL Lymphocytes # (1.0-4.8) k/uL ABG pH (7.35-7.45) ABG pCO2 (35-45) mmHg ABG pO2 (83-108) mmHg ABG HCO3 (21-25) mmol/L ABG Total CO2 (19-24) mmol/L Potassium (3.5-5.1) mmol/L Carbon Dioxide (22-30) mmol/L BUN (9-20) mg/dL Glucose (74-99) mg/dL POC Glucose (mg/dL) 196 H (75-99) mg/dL Calcium (8.4-10.2) mg/dL ALT (4-49) U/L Total Protein (6.3-8.2) g/dL Albumin (3.5-5.0) g/dL Assessment and Plan Assessment: -Acute hypoxic respiratory failure secondary to Covid 19 pneumonia, extensive interstitial pneumonia on mechanical ventilation -Status post PEG tube and tracheostomy placement -Acute lactic acidosis -Atrial fibrillation with fast ventricular rate -Change in mental status, acute metabolic encephalopathy -Elevated random blood glucose -Hypernatremia -Hypertension -Elevated troponin possibly secondary to type II acute myocardial infarction secondary to hypoxemia and COVID-19 -History of gastroesophageal reflux disease -GI prophylaxis with Pepcid -DVT prophylaxis with Lovenox -Full code Recommendations and discussion: Recommend to continue with current medications and continue to monitor in the ICU as patient continues to be on mechanical vent intubated and sedated. Oliver nued on IV Solu-Medrol along with Lovenox and vitamin and zinc supplements. Patient underwent PEG tube and tracheostomy placement with surgery yesterday and tube feedings to resume after 24 hours once cleared by surgery which will be around noon today. Continue with Accu-Cheks every 6 and sliding scale as needed. Urgent Care Technician following closely. Pulmonary following closely. Due to multiple complex medical issues, prognosis remains extremely guarded. Case management and social work following and will be discussing with family about possible LTAC placement.
[2020-09-23 17:40] LABS: Glucose,Whole Blood 215 mg/dL (75-99)
[2020-09-23] MEDS: ARTIFICIAL TEARS-HYPROMELLOSE DROPS 15 ML BTL BOTH EYES SCH (21:48)
[2020-09-23 23:46] LABS: Glucose,Whole Blood 201 mg/dL (75-99)
[2020-09-24] MEDS: methylPREDNISolone SOD SUCCI 125 MG/2 ML VIAL IV SCH ×4 (00:19→18:02)
[2020-09-24] MEDS: INSULIN ASPART (NovoLOG) 100 UNIT/ML VIAL SQ SCH ×4 (00:19→18:02)
[2020-09-24 04:48] LABS: ABG Base Excess 5.7 mmol/L; ABG HCO3 32 mmol/L (21-25); ABG Oxygen Saturation 93.9 % (94-97); ABG PCO2 69 mmHg (35-45); ABG PH 7.28 (7.35-7.45); ABG PO2 74 mmHg (83-108); ABG TCO2 35 mmol/L (19-24)
[2020-09-24 05:01] LABS: Basophils # (A) 0.2 k/uL (0-0.2); Basophils % (A) 1 %; Eosinophils # (A) 0.1 k/uL (0-0.7); Eosinophils % (A) 0 %; HCT 35.6 % (39.0-53.0); HGB 11.9 gm/dL (13.0-17.5); Lymphocytes # (A) 0.2 k/uL (1.0-4.8); Lymphocytes % (A) 1 %; MCH 31.3 pg (25.0-35.0); MCHC 33.3 g/dL (31.0-37.0); Mean Platelet Volume 9.2; Monocytes # (A) 1.1 k/uL (0-1.0); Monocytes % (A) 5 %; Neutrophils # (A) 21.5 k/uL (1.3-7.7); Neutrophils % (A) 93 %; Platelet Count 192 k/uL (150-450); RBC 3.79 m/uL (4.30-5.90); RDW 15.4 % (11.5-15.5); WBC 23.2 k/uL (3.8-10.6)
[2020-09-24 05:13] LABS: ALT 175 U/L (4-49); AST 91 U/L (17-59); African American GFR (CKD) >90 (>60 ml/min/1.73 sqM); Albumin 3.1 g/dL (3.5-5.0); Alkaline Phosphatase 97 U/L (38-126); Anion Gap 2 mmol/L; Blood Urea Nitrogen 40 mg/dL (9-20); Calcium 8.3 mg/dL (8.4-10.2); Carbon Dioxide 35 mmol/L (22-30); Chloride 106 mmol/L (98-107); Glucose 210 mg/dL (74-99); Non-African American GFR(CKD) >90 (>60 ml/min/1.73 sqM); Sodium 143 mmol/L (137-145); Total Bilirubin 0.7 mg/dL (0.2-1.3); Total Protein 5.5 g/dL (6.3-8.2)
[2020-09-24 05:45] LABS: Glucose,Whole Blood 215 mg/dL (75-99)
[2020-09-24] MEDS: fentaNYL (PF). 1,000 MCG in SODIUM CHLORIDE 0.9% 80 ML IV SCH ×2 (06:51→17:34)
--- NOTE | 2020-09-24 07:22 | XR ---
EXAMINATION TYPE: XR chest 1V DATE OF EXAM: 09/24/2020 HISTORY: Shortness of breath. COMPARISON: 09/23/2020 TECHNIQUE: Single view of the chest is submitted. FINDINGS: Patchy airspace infiltrates persist although there is interval improvement noted. Tracheostomy tube i s in place. Left-sided PICC line. The heart is stable. Hilar and mediastinal structures are within normal limits. Degenerative changes are seen of the dorsal spine. IMPRESSION: 1. Patchy airspace infiltrates persist although there is interval improvement noted.
[2020-09-24] MEDS: ALBUTEROL HFA INHALER INHALATION SCH ×4 (07:42→19:28)
[2020-09-24] MEDS: CHOLECALCIFEROL 25 MCG (1000 IU) TABLET PO SCH (08:33)
[2020-09-24] MEDS: amLODIPine 10 MG TAB PO SCH (08:33)
[2020-09-24] MEDS: ENOXAPARIN 40 MG/0.4 ML SYRINGE SQ SCH (08:34)
[2020-09-24] MEDS: METOPROLOL TARTRATE 12.5 MG TAB PO SCH ×2 (08:34→21:06)
[2020-09-24] MEDS: ASCORBIC ACID 500 MG TAB PO SCH ×2 (08:34→21:06)
[2020-09-24] MEDS: FAMOTIDINE 20 MG TAB PO SCH ×2 (08:34→21:06)
[2020-09-24] MEDS: ZINC SULFATE 220 MG CAP PO SCH (08:34)
[2020-09-24] MEDS: ATORVASTATIN 80 MG TAB PO SCH (08:34)
[2020-09-24] MEDS: ASPIRIN 81 MG PO SCH (08:34)
[2020-09-24] MEDS: CHLORHEXIDINE GLUCONATE 15 ML CUP MUCOUS MEM SCH ×2 (08:35→21:06)
[2020-09-24] MEDS: LACTULOSE 20 GM/30 ML CUP PO SCH ×4 (08:36→22:06)
[2020-09-24] MEDS: allopurinoL 300 MG TAB PO SCH (08:36)
[2020-09-24] MEDS: CISATRACURIUM 200 MG in SODIUM CHLORIDE 0.9% 180 ML IV SCH (09:17)
[2020-09-24] MEDS: ARTIFICIAL TEARS-HYPROMELLOSE DROPS 15 ML BTL BOTH EYES SCH ×4 (09:38→21:06)
--- NOTE | 2020-09-24 10:41 | P.PN ---
Subjective Progress Note Date: 09/24/20 Principal diagnosis: Hypoxemic respiratory failure. 54-year-old white male patient who is an ex smoker, carries [id number] smoking history quit smoking 1 year ago in May, history of hypertension and gout who sees Dr. Contreras, presented to the emergency department on 08/02/2020 with complaints of worsening shortness of breath, cough, and patient was diagnosed with Covid 19 one week ago, was tested at [facility] per Dr. Contreras's order. 2 weeks ago he had symptoms of flulike illness, sore throat, shortness of breath, weakness, muscle aches which progressively became worse, and patient developed worsening shortness of breath and had difficulty breathing and ambulating at home. He was placed on Decadron [address] Contreras and he has 1-1/2 days worth left of it. Chest x-ray in the emergency department showed bilateral interstitial pneumonia. White blood cell count was 33.1, d-dimer was greater than 35.2, CO2 is 16, the rest of electrolytes were unremarkable, B1 is 35 creatinine is 1.04, plasma lactic acid is 4.5, patient was given IV fluids and lactic acid came down to 1.8, total bilirubin was 1.6, AST is 107, ALT is 48, alkaline phosphatase is 114, LDH is 5924, first troponin was 4.190, and the second one went up to 6.960. CRP is 180.3, pro-calcitonin level is 0.33, urinalysis showed 1+ protein, but no definite sign of infection, pulse ox is 86 on room air, patient has significant shortness of breath, and was placed on BiPAP support, currently with pressures of 12/6, and FiO2 of 100% on which he remains this morning, he is afebrile, hemodynamically he is stable, she was started on IV Decadron, we'll start him on intermediate dose of Lovenox 50 mg every 12 hours, CTA chest shows no evidence of pulmonary embolism, and extensive pulmonary infiltrates that are mostly interstitial consistent with severe interstitial pneumonia. Progress note dated 09/04/2020. 54-year-old male, admitted with a diagnosis of COVID 19 pneumonitis. Currently, he is on BiPAP at 12/6 and 90%. FiO2 will be dropped down to 80%. In addition, he is getting saline at 75 mL an hour. The patient's doing better today. He states that he feels better. He still short of breath with activity. I did tell him today to make sure he moves around in bed when he is laying in bed. White count 29.3, hemoglobin 14.6, hematocrit 42.7, platelet count 140,000. D- dimer greater than 34.10. Sodium 136, potassium 5.1, chlorides 105, CO2 25, anion gap 6, BUN 39, creatinine 0.9. LDH is 3965. C-reactive protein 143. Chest x-ray shows a worsening pattern of bilateral airspace disease. Progress note dated 09/05/2020. 54-year-old male, admitted with a diagnosis of COVID 19 pneumonitis. He remains on BiPAP with an FiO2 of 80%. Settings included an IPAP 12, EPAP 6. The patient states that he feels a bit better. He is getting saline at 75 mL an hour. He feels like he is breathing is improved. He does know to move about in bed. No new laboratory data today. His most recent chest x-ray was from yesterday and was reviewed. The patient's on appropriate medications. Progress note dated 09/06/2020. 54-year-old male, seen again today. The patient is on BiPAP, settings of IPAP 12, EPAP 6, and 90%. He is also getting saline at 75 mL an hour. Was admitted with a diagnosis of acute hypoxemic respiratory failure secondary to COVID 19 pneumonia. The patient feels about the same. No better or no worse. He will have a chest x-ray tomorrow. Labs are reviewed. White count 19.3, hemoglobin 15, hematocrit 43.9, and platelet count 92,000. Sodium 135, potassium 4.9, chlorides 109, CO2 20, anion gap 6, BUN 34, and creatinine 0.92. There is no recent chest x-ray to review. Patient was reevaluated today on 09/19/2020, remains intubated and sedated, he is also paralyzed, remains on assist control rate of 32, tidal volume is 420 FiO2 65% and PEEP of 16. ABG showed a pO2 of 72 pCO2 of 63 pH of 7.32. His peak airway pressure is in the high 30s and plateau pressure is 31. Patient remains on IV fluid at 100 mL/h he is on Nimbex at 3, fentanyl at 1 on propofol at 40. He is on tube feeding using vital HP at goal. Today considering his sodium being elevated we have transitioned his IV fluids from 0.9 normal saline to D5W at 100 mL per hour and the patient will be receiving free water flushes via nasogastric tube. Chest x-ray is basically about the same, continues show by basilar patchy infiltrates, consistent with COVID-19 pneumonia, not much of a change is noted in the last couple of days. Hemodynamically gomez, the patient is stable, not requiring any pressors. Reevaluated today on 09/20/2020, patient remains intubated and sedated and mechanically ventilated and paralysis. On assist control rate of 32 tidal volume 420 FiO2 60% PEEP of 16. ABG showed a pO2 of 69 pCO2 of 62 pH of 7.32. Chest x-ray is basically about the same continues to by basilar patchy infiltrates. Remains on propofol at 20 Nimbex at 3 fentanyl at 1 D5W at 100 mL per hour. Remains on tube feeding. He is also receiving free water flushes. He is on enteral feeding using vital HP at 40 mL per hour. CBC is relatively normal hemoglobin is 10.7. Electrolytes sodium remains elevated at 145, however improving from 149 yesterday. BUN is 51 creatinine 1.03. Calcium is 7.9. No inflammatory markers were ordered today. Patient was reevaluated today on 09/21/2020, remains in the ICU, intubated and mechanically ventilated, sedated and paralyzed. Patient is on assist control rate of 32 tidal volume 420 FiO2 60% and PEEP of 16. ABG showed a pO2 of 65 pCO2 of 62 pH of 7.32. Remains on propofol at 25, Nimbex S3 fentanyl at 1 D5W at 100 mL per hour, and vital HP 40/40. Chest x-ray is showing slight improvement in his bilateral patchy infiltrates. Patient has not had a bowel movement in almost over a week, hence we'll start the patient on lactulose and Reglan. Today I have instructed the nurses to consider pronating the patient at least try presently position and hopefully address Nimbex holidays. However the patient is to be prone doubt other chemo on Nimbex. His IV fluid remains D5W and I cut it down to 50 mL per hour. After evaluating the patient, and patient was off Nimbex for a very short period of time developed atrial fibrillation with RVR, Lasix the patient on amiodarone as per protocol, bolused with amiodarone. And he had to go back on Nimbex. Progress note dated 09/22/2020. 54-year-old male, again seen, in room 250. The patient was admitted back on 09/03/2020. He was admitted with a diagnosis of acute hypoxemic respiratory failure secondary to COVID 19 pneumonia. The patient remains on the ventilator. He is on the volume assist control mode, rate of 32, tidal volume 420, FiO2 60%, and PEEP of 16. Blood gases show a PaO2 of 71, PaCO2 60, pH 7.33. The patient will need a tracheostomy and PEG tube placement. Currently, he is in the prone position. He is getting saline at 20 mL an hour, propofol at 40 mcg/kg/m, Nimbex at 3 mcg/kg/m, amiodarone at 0.5 mg/m D5W at 50 mL an hour, which will be discontinued, fentanyl 1 mcg/kg/h, and vital high protein at 40 mL an hour, which is goal. White count 12.2, hemoglobin 10.7, hematocrit 31.1, and platelet count 141,000. Sodium 138, potassium 5.2, chlorides 103, CO2 33, anion gap 2, and BUN and creatinine were 43 and 0.77 respectively., Chest x-ray shows bilateral patchy infiltrates. Progress note dated 09/23/2020. 54-year-old male, again seen in the intensive care unit. The patient was admitted on September 02, and intubated on September 12. The patient underwent tracheostomy tube placement and PEG tube placement yesterday, September 22. Currently, he remains on the I am assist control mode, rate 32, tidal volume 420, FiO2 80%, and PEEP of 16. We are going to increase the PEEP up to 20, and try to wean the FiO2 down further. He currently remains on Nimbex at 2 mcg/kg/m, propofol at 50 mcg/kg/m, fentanyl at 1 mcg/kg/h, saline at 20 mL an hour, and tube feedings with vital high protein at 40 mL an hour, which is goal. White count 20.9, he will monitor him 0.3, hematocrit 33.6, and platelet count is normal. Sodium 138, potassium 5.2, chlorides 104, CO2 32, anion gap 2, BUN 43, creatinine 0.83. Chest x-ray showed bilateral multifocal and confluent opacities, left greater than right, consistent with the diagnosis. Progress note dated 09/24/2020. 54-year-old male, again seen in the intensive care unit, room 250. The patient was admitted to the hospital on September 02, and intubated 10 days later on September 12. The patient underwent tracheostomy and PEG tube placement, on September 22. He remains on the mechanical ventilator. He is on the volume assist control mode, rate 32, tidal volume 420, FiO2 60%, and PEEP of 20. Blood gases show a PaO2 of 74, pCO2 of 69, pH is 7.28. The FiO2 be dropped from 60 sent the patient's currently on Nimbex at 2 mcg/kg/m, we'll follow 50 mcg/kg/m, and fentanyl at 1 mcg/kg/h. The patient's getting saline at 10 mL an hour, and Nepro, for tube feeds, at 16 mL an hour, which is goal. Chest x-ray shows bilateral patchy airspace disease, somewhat improved. White count 23.2, hemoglobin 11.9, hemat ocrit 35.6, platelet count 192,000. Sodium 143, potassium 5, chlorides 106, CO2 35, anion gap 2, BUN 40, and creatinine 0.8. Objective - Vital Signs Vital signs: Vital Signs Temp 99.0 F 09/23/20 20:00 Pulse 47 L 09/24/20 09:00 Resp 32 H 09/24/20 09:00 BP 147/72 09/24/20 00:00 Pulse Ox 93 L 09/24/20 09:00 Intake & Output 09/23/20 09/24/20 09/24/20 18:59 06:59 18:59 Intake Total 105.163 9902.832 437.802 Output Total 875 995 380 Balance 58.837 312.832 57.802 Weight 100.2 kg 100.8 kg Intake: IV 156 186 49 0.9 NS 120 150 40 Pressure bag 36 36 9 Intake, IV Titration 531.837 599.832 220.802 Amount Cisatracurium 200 mg In 146.234 196.634 120.802 Sodium Chloride 0.9% 180 ml @ 1 MCG/KG/MIN 5.61 mls/hr IV .Q24H [facility] Rx#: [id number] fentaNYL (PF). 1,000 mcg 90.860 131.054 In Sodium Chloride 0.9% 80 ml @ Per Protocol IV . Q0M [facility] Rx#:[id number] propofoL 1,000 mg In 294.743 272.144 100 Empty Bag 1 bag @ Titrate IV .Q0M [facility] Rx#: [id number] Tube Feeding 96 192 48 Other 150 330 120 Output: Urine 875 995 380 Stool 0 Other: Voiding Method Indwelling Catheter Indwelling Catheter Indwelling Catheter # Bowel Movements 2 ABP, PAP, CO, CI - Last Documented Arterial Blood Pressure 125/52 - Exam Currently sedated, and paralyzed. There is a midline tracheostomy. The patient saturations are 93%. HEENT examination is grossly unremarkable. Neck supple. Full range of motion. No adenopathy thyromegaly or neck vein distention. Cardiovascular examination reveals regular rhythm rate. S1-S2 normal. No S3 or S4. No discernible murmur noted. Heart rate 47 bpm. Lungs reveal coarse bilateral rhonchi, and scattered diffuse crackles. No wheezes are noted. Breath sounds are equal bilaterally. Abdomen soft bowel sounds are heard. No masses or tenderness. A PEG tube is noted. Extremities are intact. No cyanosis clubbing or edema. Skin is without rash or lesion. Neurologic examination cannot be assessed as the patient's currently sedated and paralyzed. - Labs CBC & Chem 7: 09/24/20 04:33 09/24/20 04:33 Labs: Abnormal Lab Results - Last 24 Hours (Table) 09/23/20 09/23/20 09/23/20 Range/Units 11:20 17:40 23:45 WBC (3.8-10.6) k/uL RBC (4.30-5.90) m/uL Hgb (13.0-17.5) gm/dL Hct (39.0-53.0) % Neutrophils # (1.3-7.7) k/uL Lymphocytes # (1.0-4.8) k/uL Monocytes # (0-1.0) k/uL ABG pH (7.35-7.45) ABG pCO2 (35-45) mmHg ABG pO2 (83-108) mmHg ABG HCO3 (21-25) mmol/L ABG Total CO2 (19-24) mmol/L ABG O2 Saturation (94-97) % Carbon Dioxide (22-30) mmol/L BUN (9-20) mg/dL Glucose (74-99) mg/dL POC Glucose (mg/dL) 178 H 215 H 201 H (75-99) mg/dL Calcium (8.4-10.2) mg/dL AST (17-59) U/L ALT (4-49) U/L Total Protein (6.3-8.2) g/dL Albumin (3.5-5.0) g/dL 09/24/20 09/24/20 09/24/20 Range/Units 04:33 04:33 04:38 WBC 23.2 H (3.8-10.6) k/uL RBC 3.79 L (4.30-5.90) m/uL Hgb 11.9 L (13.0-17.5) gm/dL Hct 35.6 L (39.0-53.0) % Neutrophils # 21.5 H (1.3-7.7) k/uL Lymphocytes # 0.2 L (1.0-4.8) k/uL Monocytes # 1.1 H (0-1.0) k/uL ABG pH 7.28 L (7.35-7.45) ABG pCO2 69 H (35-45) mmHg ABG pO2 74 L (83-108) mmHg ABG HCO3 32 H (21-25) mmol/L ABG Total CO2 35 H (19-24) mmol/L ABG O2 Saturation 93.9 L (94-97) % Carbon Dioxide 35 H (22-30) mmol/L BUN 40 H (9-20) mg/dL Glucose 210 H (74-99) mg/dL POC Glucose (mg/dL) (75-99) mg/dL Calcium 8.3 L (8.4-10.2) mg/dL AST 91 H (17-59) U/L ALT 175 H (4-49) U/L Total Protein 5.5 L (6.3-8.2) g/dL Albumin 3.1 L (3.5-5.0) g/dL 09/24/20 Range/Units 05:43 WBC (3.8-10.6) k/uL RBC (4.30-5.90) m/uL Hgb (13.0-17.5) gm/dL Hct (39.0-53.0) % Neutrophils # (1.3-7.7) k/uL Lymphocytes # (1.0-4.8) k/uL Monocytes # (0-1.0) k/uL ABG pH (7.35-7.45) ABG pCO2 (35-45) mmHg ABG pO2 (83-108) mmHg ABG HCO3 (21-25) mmol/L ABG Total CO2 (19-24) mmol/L ABG O2 Saturation (94-97) % Carbon Dioxide (22-30) mmol/L BUN (9-20) mg/dL Glucose (74-99) mg/dL POC Glucose (mg/dL) 215 H (75-99) mg/dL Calcium (8.4-10.2) mg/dL AST (17-59) U/L ALT (4-49) U/L Total Protein (6.3-8.2) g/dL Albumin (3.5-5.0) g/dL Assessment and Plan Assessment: Acute hypoxemic respiratory failure secondary to COVID 19 pneumonitis, and secondary acute respiratory distress syndrome, with admission to the hospital on September 02, and intubation on 09/12/2020. Status post tracheostomy tube, and PEG tube placement, 09/22/2020, for failure to wean from mechanical ventilation. Elevated inflammatory markers secondary to above. History of hypertension. Former tobacco use. Mildly elevated troponins, without chest pain. New-onset atrial fibrillation with RVR. Lactic acidosis. No computed tomography scan evidence of pulmonary embolism. Plan: Plan dated 09/04/2020. The patient is doing a bit better today. We are starting to wean down his FiO2. Additional recommendations and suggestions are forthcoming. The patient was outside the window for REM. The patient is currently on Lovenox, and Decadron. Additional recommendations and suggestions are forthcoming. We'll continue to follow. Prognosis is guarded. Plan dated 09/05/2020. Clinically, the patient feels a bit better today. He seems to be less short of breath. He is on BiPAP at 12/6 and 80%. The patient's on appropriate medic ations. I did tell him to move about all he is in bed. Right side down, left side down, supine, and prone. The patient is getting the appropriate vitamins, as well as Lovenox and Decadron. He was outside the window for REM. We will continue to follow and make recommendations were appropriate. Plan dated 09/06/2020. His oxygen requiring has gone up by 10%. Yesterday, he was on 80%. He's fe eling about the same, no better, and no worse. He is receiving all appropriate medications including Lovenox, Decadron, vitamins, etc. He was outside the window for REM. We will continue to follow him closely. His labs and medications are reviewed. He will have a chest x-ray in the morning. No additional recommendations are made. Prognosis is guarded. Plan dated 09/22/2020. The patient has been here in the hospital now for 19 days. The patient was admitted back on 09/03/2020. The patient has been on the mechanical ventilator for some quite some time. The patient will need tracheostomy and PEG tube placement. We'll consult surgery for that. Additional recommendations and suggestions are forthcoming. The patient D5W IV will be discontinued. We will attempt to get the patient off of Nimbex first. The patient is currently receiving nutrition with vital high protein at goal at 40 mL an hour. We will continue to follow the patient make recommendations were appropriate. Overall prognosis remains guarded. Additional recommendations and suggestions are forthcoming. Plan dated 09/23/2020. The patient did have a tracheostomy tube, and PEG tube placement done yesterday by surgery. I appreciate that. The patient remains on Nimbex, propofol, and fentanyl. Tube feeds will be resumed today. His PEEP will be increased from 16 up to 20. We'll attempt to wean the FiO2 further. Additional recommendations and suggestions are forthcoming. Labs, chest x-ray, medications, all reviewed. Prognosis is very guarded. We will continue to follow the patient. Plan dated 09/24/2020. The patient underwent tracheostomy tube placement and PEG tube placement on September 22. This is because the patient was failing to progress from intubation and mechanical ventilation, and eventual liberation from mechanical ventilation. The patient remains on Nimbex, propofol, and fentanyl. The patient is receiving nutrition at goal. The FiO2 will be dropped from 60%, down to 50%. Additional recommendations and suggestions are forthcoming. The hope is that we can get the patient off of all these other medications, and eventually get the patient transferred to long-term acute care. Prognosis is guarded. Time with Patient: Greater than 30
--- NOTE | 2020-09-24 11:12 | P.PN ---
Subjective Progress Note Date: 09/24/20 CHIEF COMPLAINT: COVID-19 pneumonia HISTORY OF PRESENT ILLNESS: Patient is in the ICU and is intubated. He is status post tracheostomy and PEG tube placement. Patient is tolerating tube feedings. No residual reported. Tube feedings switched to Nepro per dietitian. He did have a bowel movement. Afebrile. They have titrated his FiO2 down to 50. Afebrile. WBC 23.2 PHYSICAL EXAM: VITAL SIGNS: Reviewed. GENERAL: Well-developed in no acute distress. HEENT: Moist buccal mucosa. Head is atraumatic, normocephalic. Tracheostomy site clean dry and intact ABDOMEN: Soft. Nondistended. Nontender. PEG tube site clean dry and intact NEUROLOGIC: Intubated and sedated ASSESSMENT: 1. Acute hypoxic respiratory failure due to COVID-19 pneumonia with prolonged mechanical ventilation status post tracheostomy placement 2. Moderate protein calorie malnutrition status post PEG tube placement PLAN: -Continue titrating tube feedings -Continue supportive care -Continue ICU management Physician All Round Logger note has been reviewed by physician. Signing provider agrees with the documented findings, assessment, and plan of care. Objective - Vital Signs Vital signs: Vital Signs Temp 99.0 F 09/23/20 20:00 Pulse 47 L 09/24/20 09:00 Resp 32 H 09/24/20 09:00 BP 147/72 09/24/20 00:00 Pulse Ox 93 L 09/24/20 09:00 Intake & Output 09/23/20 09/24/20 09/24/20 18:59 06:59 18:59 Intake Total 646.369 0404.832 437.802 Output Total 875 995 380 Balance 58.837 312.832 57.802 Weight 100.2 kg 100.8 kg Intake: IV 156 186 49 0.9 NS 120 150 40 Pressure bag 36 36 9 Intake, IV Titration 531.837 599.832 220.802 Amount Cisatracurium 200 mg In 146.234 196.634 120.802 Sodium Chloride 0.9% 180 ml @ 1 MCG/KG/MIN 5.61 mls/hr IV .Q24H [facility] Rx#: [id number] fentaNYL (PF). 1,000 mcg 90.860 131.054 In Sodium Chloride 0.9% 80 ml @ Per Protocol IV . Q0M [facility] Rx#:[id number] propofoL 1,000 mg In 294.743 272.144 100 Empty Bag 1 bag @ Titrate IV .Q0M [facility] Rx#: [id number] Tube Feeding 96 192 48 Other 150 330 120 Output: Urine 875 995 380 Stool 0 Other: Voiding Method Indwelling Catheter Indwelling Catheter Indwelling Catheter # Bowel Movements 2 ABP, PAP, CO, CI - Last Documented Arterial Blood Pressure 125/52 - Labs CBC & Chem 7: 09/24/20 04:33 09/24/20 04:33 Labs: Abnormal Lab Results - Last 24 Hours (Table) 09/23/20 09/23/20 09/23/20 Range/Units 11:20 17:40 23:45 WBC (3.8-10.6) k/uL RBC (4.30-5.90) m/uL Hgb (13.0-17.5) gm/dL Hct (39.0-53.0) % Neutrophils # (1.3-7.7) k/uL Lymphocytes # (1.0-4.8) k/uL Monocytes # (0-1.0) k/uL ABG pH (7.35-7.45) ABG pCO2 (35-45) mmHg ABG pO2 (83-108) mmHg ABG HCO3 (21-25) mmol/L ABG Total CO2 (19-24) mmol/L ABG O2 Saturation (94-97) % Carbon Dioxide (22-30) mmol/L BUN (9-20) mg/dL Glucose (74-99) mg/dL POC Glucose (mg/dL) 178 H 215 H 201 H (75-99) mg/dL Calcium (8.4-10.2) mg/dL AST (17-59) U/L ALT (4-49) U/L Total Protein (6.3-8.2) g/dL Albumin (3.5-5.0) g/dL 09/24/20 09/24/20 09/24/20 Range/Units 04:33 04:33 04:38 WBC 23.2 H (3.8-10.6) k/uL RBC 3.79 L (4.30-5.90) m/uL Hgb 11.9 L (13.0-17.5) gm/dL Hct 35.6 L (39.0-53.0) % Neutrophils # 21.5 H (1.3-7.7) k/uL Lymphocytes # 0.2 L (1.0-4.8) k/uL Monocytes # 1.1 H (0-1.0) k/uL ABG pH 7.28 L (7.35-7.45) ABG pCO2 69 H (35-45) mmHg ABG pO2 74 L (83-108) mmHg ABG HCO3 32 H (21-25) mmol/L ABG Total CO2 35 H (19-24) mmol/L ABG O2 Saturation 93.9 L (94-97) % Carbon Dioxide 35 H (22-30) mmol/L BUN 40 H (9-20) mg/dL Glucose 210 H (74-99) mg/dL POC Glucose (mg/dL) (75-99) mg/dL Calcium 8.3 L (8.4-10.2) mg/dL AST 91 H (17-59) U/L ALT 175 H (4-49) U/L Total Protein 5.5 L (6.3-8.2) g/dL Albumin 3.1 L (3.5-5.0) g/dL 09/24/20 Range/Units 05:43 WBC (3.8-10.6) k/uL RBC (4.30-5.90) m/uL Hgb (13.0-17.5) gm/dL Hct (39.0-53.0) % Neutrophils # (1.3-7.7) k/uL Lymphocytes # (1.0-4.8) k/uL Monocytes # (0-1.0) k/uL ABG pH (7.35-7.45) ABG pCO2 (35-45) mmHg ABG pO2 (83-108) mmHg ABG HCO3 (21-25) mmol/L ABG Total CO2 (19-24) mmol/L ABG O2 Saturation (94-97) % Carbon Dioxide (22-30) mmol/L BUN (9-20) mg/dL Glucose (74-99) mg/dL POC Glucose (mg/dL) 215 H (75-99) mg/dL Calcium (8.4-10.2) mg/dL AST (17-59) U/L ALT (4-49) U/L Total Protein (6.3-8.2) g/dL Albumin (3.5-5.0) g/dL
[2020-09-24 11:58] LABS: Glucose,Whole Blood 200 mg/dL (75-99)
--- NOTE | 2020-09-24 15:36 | P.PN ---
Subjective Progress Note Date: 09/24/20 This is a 54-year-old male who was recently admitted with acute hypoxic respiratory failure secondary to COVID-19 pneumonia and is being closely monitored. Continues to remain on mechanical ventilation currently sedated. Patient has had prolonged hospitalization with unsuccessful attempts at weaning and surgery has been consulted for tracheostomy along with PEG tube placement. Patient was on D5 water for hypernatremia and will be discontinued. Tube feedings on hold for surgery today and will resume once PEG tube is okay for use. Per nursing staff patient has also been in the prone position since yesterday evening into this morning and tolerated. Amiodarone has also been discontinued as patient is currently bradycardic. Pulmonary gas station supervisor following closely. Patient is maintained on sliding scale and will monitor closely once tube feedings have resumed. 09/23/2020 Patient is seen in follow-up continues to be closely monitored in the ICU maintained on mechanical vent via tracheostomy as he underwent trach and PEG tube placement yesterday with surgery. Tube feedings to resume via PEG tube this afternoon after clearance from surgery. Chest x-ray today shows bilateral multifocal and confluent opacities left greater than right consistent with COVID-19 again redemonstrated with no significant change from yesterday. Pulmonary also following. White blood count at 20.9, hemoglobin is 11.3, current sodium is 138 with a potassium of 5.2, and creatinine is 0.83. 09/24/2020 Patient continues to be intubated and sedated in the ICU status post tracheostomy and PEG tube placement. Tube feedings have been resumed and patient is tolerating. Chest x-ray today shows continued patchy airspace infiltrates although there is interval improvement noted. Pulmonary following closely. White blood count slightly elevated at 23.2 patient is maintained on IV Solu-Medrol every 6 hours. Sodium 143 with a potassium of 5.0 and current creatinine is 0.84. Review of systems: Unable to obtain as patient continues to be intubated and sedated Active Medications Acetaminophen (Acetaminophen Tab 325 Mg Tab) 650 mg PO Q6HR PRN PRN Reason: Fever and/ or Pain Last Admin: 09/16/20 11:48 Dose: 650 mg Documented by: Albuterol Sulfate (Albuterol Hfa Inhaler) 2 puff INHALATION RT-QID PRN PRN Reason: Shortness Of Breath Last Admin: 09/04/20 17:46 Dose: 2 puff Documented by: Albuterol Sulfate (Albuterol Hfa Inhaler) 2 puff INHALATION RT-QID [facility] Last Admin: 09/24/20 12:28 Dose: 2 puff Documented by: Allopurinol (Allopurinol 300 Mg Tab) 300 mg PO DAILY [facility] Last Admin: 09/24/20 08:36 Dose: 300 mg Documented by: Amlodipine Besylate (Amlodipine 10 Mg Tab) 10 mg PO DAILY [facility] Last Admin: 09/24/20 08:33 Dose: 10 mg Documented by: Artificial Tears (Artificial Tears-Hypromellose Drops 15 Ml Btl) 2 drops BOTH EYES QID [facility] Last Admin: 09/24/20 09:38 Dose: 2 drops Documented by: Ascorbic Acid (Ascorbic Acid 500 Mg Tab) 500 mg PO BID [facility] Last Admin: 09/24/20 08:34 Dose: 500 mg Documented by: Aspirin (Aspirin 81 Mg) 81 mg PO DAILY [facility] Last Admin: 09/24/20 08:34 Dose: 81 mg Documented by: Atorvastatin Calcium (Atorvastatin 80 Mg Tab) 80 mg PO DAILY [facility] Last Admin: 09/24/20 08:34 Dose: 80 mg Documented by: Chlorhexidine Gluconate (Chlorhexidine Gluconate 15 Ml Cup) 15 ml MUCOUS MEM BID [facility] Last Admin: 09/24/20 08:35 Dose: 15 ml Documented by: Cholecalciferol (Cholecalciferol 25 Mcg (1000 Iu) Tablet) 125 mcg PO DAILY [facility] Last Admin: 09/24/20 08:33 Dose: 125 mcg Documented by: Enoxaparin Sodium (Enoxaparin 40 Mg/0.4 Ml Syringe) 40 mg SQ DAILY [facility] Last Admin: 09/24/20 08:34 Dose: 40 mg Documented by: Famotidine (Famotidine 20 Mg Tab) 20 mg PO BID [facility] Last Admin: 09/24/20 08:34 Dose: 20 mg Documented by: Heparin Sodium (Porcine) (Heparin Sodium 1,000 Un/Ml (10ml Vl)) 0 unit IV PER PROTOCOL PRN; Protocol PRN Reason: Low PTT Last Admin: 09/03/20 17:35 Dose: 4,900 unit Documented by: Propofol 1,000 mg/ IV Solution 100 mls @ 0 mls/hr IV .Q0M [facility]; Protocol Last Admin: 09/24/20 07:50 Dose: 50 mcg/kg/min, 30.06 mls/hr Documented by: Cisatracurium Besylate 200 mg/ (Sodium Chloride) 200 mls @ 5.61 mls/hr IV .Q24H [facility]; Protocol Last Admin: 09/24/20 09:17 Dose: 2 mcg/kg/min, 11.22 mls/hr Documented by: Fentanyl Citrate 1,000 mcg/ (Sodium Chloride) 100 mls @ 0 mls/hr IV .Q0M [facility]; Protocol Last Admin: 09/24/20 06:51 Dose: 1 mcg/kg/hr, 9.24 mls/hr Documented by: Insulin Aspart (Insulin Aspart (Novolog) 100 Unit/Ml Vial) 0 unit SQ Q6HR [facility]; Protocol Last Admin: 09/24/20 12:45 Dose: 5 unit Documented by: Lactulose (Lactulose 20 Gm/30 Ml Cup) 20 gm PO QID [facility] Last Admin: 09/24/20 08:36 Dose: Not Given Documented by: Methylprednisolone Sodium Succinate (Methylprednisolone Sod Succi 125 Mg/2 Ml Vial) 60 mg IV Q6HR [facility] Last Admin: 09/24/20 12:45 Dose: 60 mg Documented by: Metoprolol Tartrate (Metoprolol Tartrate 12.5 Mg Tab) 12.5 mg PO BID [facility] Last Admin: 09/24/20 08:34 Dose: 12.5 mg Documented by: Nitroglycerin (Nitroglycerin Sl Tabs 0.4 Mg Tab) 0.4 mg SUBLINGUAL Q5M PRN PRN Reason: Chest Pain Last Admin: 09/07/20 03:35 Dose: 0.4 mg Documented by: Promethazine HCl (Promethazine Hcl 6.25 Mg/5 Ml Cup) 12.5 mg PO QID PRN PRN Reason: Cough Last Admin: 09/06/20 02:07 Dose: 12.5 mg Documented by: Zinc Sulfate (Zinc Sulfate 220 Mg Cap) 220 mg PO DAILY [facility] Last Admin: 09/24/20 08:34 Dose: 220 mg Documented by: Objective - Vital Signs Vital signs: Vital Signs Temp 99.0 F 09/23/20 20:00 Pulse 50 L 09/24/20 08:00 Resp 32 H 09/24/20 08:00 BP 147/72 09/24/20 00:00 Pulse Ox 92 L 09/24/20 08:00 Intake & Output 09/23/20 09/24/20 09/24/20 18:59 06:59 18:59 Intake Total 857.237 2111.832 228 Output Total 875 995 200 Balance 58.837 312.832 28 Weight 100.2 kg 100.8 kg Intake: IV 156 186 36 0.9 NS 120 150 30 Pressure bag 36 36 6 Intake, IV Titration 531.837 599.832 100 Amount Cisatracurium 200 mg In 146.234 196.634 Sodium Chloride 0.9% 180 ml @ 1 MCG/KG/MIN 5.61 mls/hr IV .Q24H [facility] Rx#: [id number] fentaNYL (PF). 1,000 mcg 90.860 131.054 In Sodium Chloride 0.9% 80 ml @ Per Protocol IV . Q0M [facility] Rx#:[id number] propofoL 1,000 mg In 294.743 272.144 100 Empty Bag 1 bag @ Titrate IV .Q0M [facility] Rx#: [id number] Tube Feeding 96 192 32 Other 150 330 60 Output: Urine 875 995 200 Other: Voiding Method Indwelling Catheter Indwelling Catheter # Bowel Movements 2 ABP, PAP, CO, CI - Last Documented Arterial Blood Pressure 125/52 - Exam Gen: This is a 54-year-old male currently intubated and sedated. FiO2 decreased to 50 maintaining above 90% oxygen saturation HEENT: Head is atraumatic, normocephalic. Pupils equal, round. Sclerae is anicteric. NECK: Supple. No JVD. No lymphadenopathy. No thyromegaly. Tracheostomy noted LUNGS: diminished breath sounds bilaterally with some scattered rhonchi and crackles noted. Tachypneic. No intercostal retractions. HEART: S1, S2 are muffled ABDOMEN: Soft. Obese. Bowel sounds are present. No masses. No tenderness. EXTREMITIES: No pedal edema. No calf tenderness. NEUROLOGICAL: Unable to completely assess as patient is intubated and sedated on paralytics - Labs CBC & Chem 7: 09/24/20 04:33 09/24/20 04:33 Labs: Abnormal Lab Results - Last 24 Hours (Table) 09/23/20 09/23/20 09/23/20 Range/Units 11:20 17:40 23:45 WBC (3.8-10.6) k/uL RBC (4.30-5.90) m/uL Hgb (13.0-17.5) gm/dL Hct (39.0-53.0) % Neutrophils # (1.3-7.7) k/uL Lymphocytes # (1.0-4.8) k/uL Monocytes # (0-1.0) k/uL ABG pH (7.35-7.45) ABG pCO2 (35-45) mmHg ABG pO2 (83-108) mmHg ABG HCO3 (21-25) mmol/L ABG Total CO2 (19-24) mmol/L ABG O2 Saturation (94-97) % Carbon Dioxide (22-30) mmol/L BUN (9-20) mg/dL Glucose (74-99) mg/dL POC Glucose (mg/dL) 178 H 215 H 201 H (75-99) mg/dL Calcium (8.4-10.2) mg/dL AST (17-59) U/L ALT (4-49) U/L Total Protein (6.3-8.2) g/dL Albumin (3.5-5.0) g/dL 09/24/20 09/24/20 09/24/20 Range/Units 04:33 04:33 04:38 WBC 23.2 H (3.8-10.6) k/uL RBC 3.79 L (4.30-5.90) m/uL Hgb 11.9 L (13.0-17.5) gm/dL Hct 35.6 L (39.0-53.0) % Neutrophils # 21.5 H (1.3-7.7) k/uL Lymphocytes # 0.2 L (1.0-4.8) k/uL Monocytes # 1.1 H (0-1.0) k/uL ABG pH 7.28 L (7.35-7.45) ABG pCO2 69 H (35-45) mmHg ABG pO2 74 L (83-108) mmHg ABG HCO3 32 H (21-25) mmol/L ABG Total CO2 35 H (19-24) mmol/L ABG O2 Saturation 93.9 L (94-97) % Carbon Dioxide 35 H (22-30) mmol/L BUN 40 H (9-20) mg/dL Glucose 210 H (74-99) mg/dL POC Glucose (mg/dL) (75-99) mg/dL Calcium 8.3 L (8.4-10.2) mg/dL AST 91 H (17-59) U/L ALT 175 H (4-49) U/L Total Protein 5.5 L (6.3-8.2) g/dL Albumin 3.1 L (3.5-5.0) g/dL 09/24/20 Range/Units 05:43 WBC (3.8-10.6) k/uL RBC (4.30-5.90) m/uL Hgb (13.0-17.5) gm/dL Hct (39.0-53.0) % Neutrophils # (1.3-7.7) k/uL Lymphocytes # (1.0-4.8) k/uL Monocytes # (0-1.0) k/uL ABG pH (7.35-7.45) ABG pCO2 (35-45) mmHg ABG pO2 (83-108) mmHg ABG HCO3 (21-25) mmol/L ABG Total CO2 (19-24) mmol/L ABG O2 Saturation (94-97) % Carbon Dioxide (22-30) mmol/L BUN (9-20) mg/dL Glucose (74-99) mg/dL POC Glucose (mg/dL) 215 H (75-99) mg/dL Calcium (8.4-10.2) mg/dL AST (17-59) U/L ALT (4-49) U/L Total Protein (6.3-8.2) g/dL Albumin (3.5-5.0) g/dL Assessment and Plan Assessment: -Acute hypoxic respiratory failure secondary to Covid 19 pneumonia, extensive interstitial pneumonia on mechanical ventilation -Status post PEG tube and tracheostomy placement -Acute lactic acidosis -Atrial fibrillation with fast ventricular rate -Change in mental status, acute metabolic encephalopathy -Elevated random blood glucose -Hypernatremia -Hypertension -Elevated troponin possibly secondary to type II acute myocardial infarction secondary to hypoxemia and COVID-19 -History of gastroesophageal reflux disease -GI prophylaxis with Pepcid -DVT prophylaxis with Lovenox -Full code Recommendations and discussion: Recommend to continue with current medications and continue to monitor in the ICU as patient continues to be on mechanical vent intubated and sedated. Continued on IV Solu-Medrol along with Lovenox and vitamin and zinc supplements. Patient underwent PEG tube and tracheostomy placement with surgery recently and FiO2 has been decreased to 50 and tolerating tube feedings. Continue with Accu-Cheks every 6 and sliding scale as needed. [employer] Manager following closely. Pulmonary following closely. Due to multiple complex medical issues, prognosis remains extremely guarded. Case management and social work following and will be discussing with family about possible LTAC placement.
[2020-09-24 17:30] LABS: Glucose,Whole Blood 199 mg/dL (75-99)
[2020-09-24 23:47] LABS: Glucose,Whole Blood 222 mg/dL (75-99)
[2020-09-25] MEDS: fentaNYL (PF). 1,000 MCG in SODIUM CHLORIDE 0.9% 80 ML IV SCH ×4 (02:13→22:16)
[2020-09-25] MEDS: CISATRACURIUM 200 MG in SODIUM CHLORIDE 0.9% 180 ML IV SCH (02:28)
[2020-09-25 04:54] LABS: ABG Base Excess 7.7 mmol/L; ABG HCO3 33 mmol/L (21-25); ABG Oxygen Saturation 95.3 % (94-97); ABG PCO2 57 mmHg (35-45); ABG PH 7.37 (7.35-7.45); ABG PO2 74 mmHg (83-108); ABG TCO2 35 mmol/L (19-24)
[2020-09-25 05:44] LABS: Anisocytosis Slight; Basophils % (A) 0 %; Eosinophils % (A) 0 %; HCT 30.5 % (39.0-53.0); Lymphocytes # (A) 0.6 k/uL (1.0-4.8); Lymphocytes % (A) 4 %; MCH 29.9 pg (25.0-35.0); MCHC 31.7 g/dL (31.0-37.0); MCV 94.5 fL (80.0-100.0); Mean Platelet Volume 9.5; Monocytes # (A) 0.9 k/uL (0-1.0); Monocytes % (A) 5 %; Neutrophils # (A) 15.5 k/uL (1.3-7.7); Neutrophils % (A) 90 %; Platelet Count 167 k/uL (150-450); RBC 3.22 m/uL (4.30-5.90); RDW 16.2 % (11.5-15.5); WBC 17.2 k/uL (3.8-10.6)
[2020-09-25 05:55] LABS: HGB 9.7 gm/dL (13.0-17.5)
[2020-09-25 06:06] LABS: Allen Test Performed? no
[2020-09-25 06:18] LABS: Glucose,Whole Blood 197 mg/dL (75-99)
[2020-09-25 06:20] LABS: African American GFR (CKD) >90 (>60 ml/min/1.73 sqM); Anion Gap 2 mmol/L; Blood Urea Nitrogen 46 mg/dL (9-20); Carbon Dioxide 33 mmol/L (22-30); Chloride 109 mmol/L (98-107); Glucose 192 mg/dL (74-99); Non-African American GFR(CKD) 90 (>60 ml/min/1.73 sqM); Potassium 4.9 mmol/L (3.5-5.1); Sodium 144 mmol/L (137-145)
[2020-09-25] MEDS: INSULIN ASPART (NovoLOG) 100 UNIT/ML VIAL SQ SCH ×4 (06:26→19:12)
[2020-09-25] MEDS: methylPREDNISolone SOD SUCCI 125 MG/2 ML VIAL IV SCH ×2 (06:28→06:32)
[2020-09-25] MEDS: ALBUTEROL HFA INHALER INHALATION SCH ×4 (07:21→18:57)
[2020-09-25] MEDS: CHOLECALCIFEROL 25 MCG (1000 IU) TABLET PO SCH (08:41)
[2020-09-25] MEDS: ENOXAPARIN 40 MG/0.4 ML SYRINGE SQ SCH (08:41)
[2020-09-25] MEDS: ZINC SULFATE 220 MG CAP PO SCH (08:42)
[2020-09-25] MEDS: LACTULOSE 20 GM/30 ML CUP PO SCH ×4 (08:42→21:56)
[2020-09-25] MEDS: amLODIPine 10 MG TAB PO SCH (08:42)
[2020-09-25] MEDS: ATORVASTATIN 80 MG TAB PO SCH (08:42)
[2020-09-25] MEDS: ASCORBIC ACID 500 MG TAB PO SCH ×2 (08:42→19:59)
[2020-09-25] MEDS: FAMOTIDINE 20 MG TAB PO SCH ×2 (08:42→19:59)
[2020-09-25] MEDS: METOPROLOL TARTRATE 12.5 MG TAB PO SCH ×2 (08:42→19:59)
[2020-09-25] MEDS: CHLORHEXIDINE GLUCONATE 15 ML CUP MUCOUS MEM SCH ×2 (08:42→19:59)
[2020-09-25] MEDS: ASPIRIN 81 MG PO SCH (08:42)
[2020-09-25] MEDS: ARTIFICIAL TEARS-HYPROMELLOSE DROPS 15 ML BTL BOTH EYES SCH ×4 (08:43→20:38)
--- NOTE | 2020-09-25 11:38 | P.PN ---
Subjective Progress Note Date: 09/25/20 Principal diagnosis: Hypoxemic respiratory failure. 54-year-old white male patient who is an ex smoker, carries [id number] smoking history quit smoking 1 year ago in May, history of hypertension and gout who sees Dr. Contreras, presented to the emergency department on 08/02/2020 with complaints of worsening shortness of breath, cough, and patient was diagnosed with Covid 19 one week ago, was tested at [facility] per Dr. Contreras's order. 2 weeks ago he had symptoms of flulike illness, sore throat, shortness of breath, weakness, muscle aches which progressively became worse, and patient developed worsening shortness of breath and had difficulty breathing and ambulating at home. He was placed on Decadron [address] Contreras and he has 1-1/2 days worth left of it. Chest x-ray in the emergency department showed bilateral interstitial pneumonia. White blood cell count was 33.1, d-dimer was greater than 35.2, CO2 is 16, the rest of electrolytes were unremarkable, B1 is 35 creatinine is 1.04, plasma lactic acid is 4.5, patient was given IV fluids and lactic acid came down to 1.8, total bilirubin was 1.6, AST is 107, ALT is 48, alkaline phosphatase is 114, LDH is 5924, first troponin was 4.190, and the second one went up to 6.960. CRP is 180.3, pro-calcitonin level is 0.33, urinalysis showed 1+ protein, but no definite sign of infection, pulse ox is 86 on room air, patient has significant shortness of breath, and was placed on BiPAP support, currently with pressures of 12/6, and FiO2 of 100% on which he remains this morning, he is afebrile, hemodynamically he is stable, she was started on IV Decadron, we'll start him on intermediate dose of Lovenox 50 mg every 12 hours, CTA chest shows no evidence of pulmonary embolism, and extensive pulmonary infiltrates that are mostly interstitial consistent with severe interstitial pneumonia. Progress note dated 09/04/2020. 54-year-old male, admitted with a diagnosis of COVID 19 pneumonitis. Currently, he is on BiPAP at 12/6 and 90%. FiO2 will be dropped down to 80%. In addition, he is getting saline at 75 mL an hour. The patient's doing better today. He states that he feels better. He still short of breath with activity. I did tell him today to make sure he moves around in bed when he is laying in bed. White count 29.3, hemoglobin 14.6, hematocrit 42.7, platelet count 140,000. D- dimer greater than 34.10. Sodium 136, potassium 5.1, chlorides 105, CO2 25, anion gap 6, BUN 39, creatinine 0.9. LDH is 3965. C-reactive protein 143. Chest x-ray shows a worsening pattern of bilateral airspace disease. Progress note dated 09/05/2020. 54-year-old male, admitted with a diagnosis of COVID 19 pneumonitis. He remains on BiPAP with an FiO2 of 80%. Settings included an IPAP 12, EPAP 6. The patient states that he feels a bit better. He is getting saline at 75 mL an hour. He feels like he is breathing is improved. He does know to move about in bed. No new laboratory data today. His most recent chest x-ray was from yesterday and was reviewed. The patient's on appropriate medications. Progress note dated 09/06/2020. 54-year-old male, seen again today. The patient is on BiPAP, settings of IPAP 12, EPAP 6, and 90%. He is also getting saline at 75 mL an hour. Was admitted with a diagnosis of acute hypoxemic respiratory failure secondary to COVID 19 pneumonia. The patient feels about the same. No better or no worse. He will have a chest x-ray tomorrow. Labs are reviewed. White count 19.3, hemoglobin 15, hematocrit 43.9, and platelet count 92,000. Sodium 135, potassium 4.9, chlorides 109, CO2 20, anion gap 6, BUN 34, and creatinine 0.92. There is no recent chest x-ray to review. Patient was reevaluated today on 09/19/2020, remains intubated and sedated, he is also paralyzed, remains on assist control rate of 32, tidal volume is 420 FiO2 65% and PEEP of 16. ABG showed a pO2 of 72 pCO2 of 63 pH of 7.32. His peak airway pressure is in the high 30s and plateau pressure is 31. Patient remains on IV fluid at 100 mL/h he is on Nimbex at 3, fentanyl at 1 on propofol at 40. He is on tube feeding using vital HP at goal. Today considering his sodium being elevated we have transitioned his IV fluids from 0.9 normal saline to D5W at 100 mL per hour and the patient will be receiving free water flushes via nasogastric tube. Chest x-ray is basically about the same, continues show by basilar patchy infiltrates, consistent with COVID-19 pneumonia, not much of a change is noted in the last couple of days. Hemodynamically gomez, the patient is stable, not requiring any pressors. Reevaluated today on 09/20/2020, patient remains intubated and sedated and mechanically ventilated and paralysis. On assist control rate of 32 tidal volume 420 FiO2 60% PEEP of 16. ABG showed a pO2 of 69 pCO2 of 62 pH of 7.32. Chest x-ray is basically about the same continues to by basilar patchy infiltrates. Remains on propofol at 20 Nimbex at 3 fentanyl at 1 D5W at 100 mL per hour. Remains on tube feeding. He is also receiving free water flushes. He is on enteral feeding using vital HP at 40 mL per hour. CBC is relatively normal hemoglobin is 10.7. Electrolytes sodium remains elevated at 145, however improving from 149 yesterday. BUN is 51 creatinine 1.03. Calcium is 7.9. No inflammatory markers were ordered today. Patient was reevaluated today on 09/21/2020, remains in the ICU, intubated and mechanically ventilated, sedated and paralyzed. Patient is on assist control rate of 32 tidal volume 420 FiO2 60% and PEEP of 16. ABG showed a pO2 of 65 pCO2 of 62 pH of 7.32. Remains on propofol at 25, Nimbex S3 fentanyl at 1 D5W at 100 mL per hour, and vital HP 40/40. Chest x-ray is showing slight improvement in his bilateral patchy infiltrates. Patient has not had a bowel movement in almost over a week, hence we'll start the patient on lactulose and Reglan. Today I have instructed the nurses to consider pronating the patient at least try presently position and hopefully address Nimbex holidays. However the patient is to be prone doubt other chemo on Nimbex. His IV fluid remains D5W and I cut it down to 50 mL per hour. After evaluating the patient, and patient was off Nimbex for a very short period of time developed atrial fibrillation with RVR, Lasix the patient on amiodarone as per protocol, bolused with amiodarone. And he had to go back on Nimbex. Progress note dated 09/22/2020. 54-year-old male, again seen, in room 250. The patient was admitted back on 09/03/2020. He was admitted with a diagnosis of acute hypoxemic respiratory failure secondary to COVID 19 pneumonia. The patient remains on the ventilator. He is on the volume assist control mode, rate of 32, tidal volume 420, FiO2 60%, and PEEP of 16. Blood gases show a PaO2 of 71, PaCO2 60, pH 7.33. The patient will need a tracheostomy and PEG tube placement. Currently, he is in the prone position. He is getting saline at 20 mL an hour, propofol at 40 mcg/kg/m, Nimbex at 3 mcg/kg/m, amiodarone at 0.5 mg/m D5W at 50 mL an hour, which will be discontinued, fentanyl 1 mcg/kg/h, and vital high protein at 40 mL an hour, which is goal. White count 12.2, hemoglobin 10.7, hematocrit 31.1, and platelet count 141,000. Sodium 138, potassium 5.2, chlorides 103, CO2 33, anion gap 2, and BUN and creatinine were 43 and 0.77 respectively., Chest x-ray shows bilateral patchy infiltrates. Progress note dated 09/23/2020. 54-year-old male, again seen in the intensive care unit. The patient was admitted on September 02, and intubated on September 12. The patient underwent tracheostomy tube placement and PEG tube placement yesterday, September 22. Currently, he remains on the I am assist control mode, rate 32, tidal volume 420, FiO2 80%, and PEEP of 16. We are going to increase the PEEP up to 20, and try to wean the FiO2 down further. He currently remains on Nimbex at 2 mcg/kg/m, propofol at 50 mcg/kg/m, fentanyl at 1 mcg/kg/h, saline at 20 mL an hour, and tube feedings with vital high protein at 40 mL an hour, which is goal. White count 20.9, he will monitor him 0.3, hematocrit 33.6, and platelet count is normal. Sodium 138, potassium 5.2, chlorides 104, CO2 32, anion gap 2, BUN 43, creatinine 0.83. Chest x-ray showed bilateral multifocal and confluent opacities, left greater than right, consistent with the diagnosis. Progress note dated 09/24/2020. 54-year-old male, again seen in the intensive care unit, room 250. The patient was admitted to the hospital on September 02, and intubated 10 days later on September 12. The patient underwent tracheostomy and PEG tube placement, on September 22. He remains on the mechanical ventilator. He is on the volume assist control mode, rate 32, tidal volume 420, FiO2 60%, and PEEP of 20. Blood gases show a PaO2 of 74, pCO2 of 69, pH is 7.28. The FiO2 be dropped from 60 sent the patient's currently on Nimbex at 2 mcg/kg/m, we'll follow 50 mcg/kg/m, and fentanyl at 1 mcg/kg/h. The patient's getting saline at 10 mL an hour, and Nepro, for tube feeds, at 16 mL an hour, which is goal. Chest x-ray shows bilateral patchy airspace disease, somewhat improved. White count 23.2, hemoglobin 11.9, hemat ocrit 35.6, platelet count 192,000. Sodium 143, potassium 5, chlorides 106, CO2 35, anion gap 2, BUN 40, and creatinine 0.8. Progress note dated 09/25/2020. 54-year-old male, again seen in room 250. The patient was admitted to the hospital on September 02, and intubated on September 12. The patient underwent tracheostomy, and PEG tube placement, on September 22. He remains on the mechanical ventilator. He is on the volume assist control mode, rate 32, tidal volume 420, FiO2 50%, and PEEP of 20, which we will reduce down to 17. The patient remains on Nimbex at 3 mcg/kg/m, fentanyl 1.5 mcg/kg/h, propofol at 50 mcg/kg/m, saline at 10 mL an hour, and Nepro tube feeds, at 16 mL an hour, which is goal. We will attempt to get the patient off of Nimbex. White count 17.2, hemoglobin 9.7, hematocrit 30.5, platelet count 167,000. Sodium 144, potassium 4.9, chlorides 109, CO2 33, anion gap 2, BUN 46, creatinine 0.95. There was no chest x-ray today. Objective - Vital Signs Vital signs: Vital Signs Temp 98.9 F 09/25/20 08:00 Pulse 58 L 09/25/20 11:00 Resp 31 H 09/25/20 11:00 BP 144/76 09/25/20 11:00 Pulse Ox 87 L 09/25/20 11:00 Intake & Output 09/24/20 09/25/20 09/25/20 18:59 06:59 18:59 Intake Total 944.164 3234.546 415.704 Output Total 730 890 360 Balance 256.983 243.546 55.704 Weight 100.8 kg Intake: IV 101 156 65 0.9 NS 80 120 50 Pressure bag 21 36 15 Intake, IV Titration 623.983 485.546 271.704 Amount Cisatracurium 200 mg In 224.961 95.841 105.468 Sodium Chloride 0.9% 180 ml @ 1 MCG/KG/MIN 5.61 mls/hr IV .Q24H [facility] Rx#: [id number] fentaNYL (PF). 1,000 mcg 99.022 89.705 89.628 In Sodium Chloride 0.9% 80 ml @ Per Protocol IV . Q0M [facility] Rx#:[id number] propofoL 1,000 mg In 300 300 76.608 Empty Bag 1 bag @ Titrate IV .Q0M [facility] Rx#: [id number] Tube Feeding 112 192 79 Other 150 300 Output: Urine 730 890 360 Stool 0 Other: Voiding Method Indwelling Catheter Indwelling Catheter Indwelling Catheter ABP, PAP, CO, CI - Last Documented Arterial Blood Pressure 123/57 - Exam Currently sedated, and paralyzed. There is a midline tracheostomy. The patient saturations are 90%. HEENT examination is grossly unremarkable. Neck supple. Full range of motion. No adenopathy thyromegaly or neck vein distention. Cardiovascular examination reveals regular rhythm rate. S1-S2 normal. No S3 or S4. No discernible murmur noted. Heart rate 58 bpm. Lungs reveal coarse bilateral rhonchi, and scattered diffuse crackles. No wheezes are noted. Breath sounds are equal bilaterally. Abdomen soft bowel sounds are heard. No masses or tenderness. A PEG tube is noted. Extremities are intact. No cyanosis clubbing or edema. Skin is without rash or lesion. Neurologic examination cannot be assessed as the patient's currently sedated and paralyzed. - Labs CBC & Chem 7: 09/25/20 04:57 09/25/20 04:57 Labs: Abnormal Lab Results - Last 24 Hours (Table) 09/24/20 09/24/20 09/24/20 Range/Units 11:56 17:28 23:45 WBC (3.8-10.6) k/uL RBC (4.30-5.90) m/uL Hgb (13.0-17.5) gm/dL Hct (39.0-53.0) % RDW (11.5-15.5) % Neutrophils # (1.3-7.7) k/uL Lymphocytes # (1.0-4.8) k/uL ABG pCO2 (35-45) mmHg ABG pO2 (83-108) mmHg ABG HCO3 (21-25) mmol/L ABG Total CO2 (19-24) mmol/L Chloride (98-107) mmol/L Carbon Dioxide (22-30) mmol/L BUN (9-20) mg/dL Glucose (74-99) mg/dL POC Glucose (mg/dL) 200 H 199 H 222 H (75-99) mg/dL Calcium (8.4-10.2) mg/dL 09/25/20 09/25/20 09/25/20 Range/Units 04:52 04:57 04:57 WBC 17.2 H (3.8-10.6) k/uL RBC 3.22 L (4.30-5.90) m/uL Hgb 9.7 L D (13.0-17.5) gm/dL Hct 30.5 L (39.0-53.0) % RDW 16.2 H (11.5-15.5) % Neutrophils # 15.5 H (1.3-7.7) k/uL Lymphocytes # 0.6 L (1.0-4.8) k/uL ABG pCO2 57 H (35-45) mmHg ABG pO2 74 L (83-108) mmHg ABG HCO3 33 H (21-25) mmol/L ABG Total CO2 35 H (19-24) mmol/L Chloride 109 H (98-107) mmol/L Carbon Dioxide 33 H (22-30) mmol/L BUN 46 H (9-20) mg/dL Glucose 192 H (74-99) mg/dL POC Glucose (mg/dL) (75-99) mg/dL Calcium 8.0 L (8.4-10.2) mg/dL 09/25/20 Range/Units 06:16 WBC (3.8-10.6) k/uL RBC (4.30-5.90) m/uL Hgb (13.0-17.5) gm/dL Hct (39.0-53.0) % RDW (11.5-15.5) % Neutrophils # (1.3-7.7) k/uL Lymphocytes # (1.0-4.8) k/uL ABG pCO2 (35-45) mmHg ABG pO2 (83-108) mmHg ABG HCO3 (21-25) mmol/L ABG Total CO2 (19-24) mmol/L Chloride (98-107) mmol/L Carbon Dioxide (22-30) mmol/L BUN (9-20) mg/dL Glucose (74-99) mg/dL POC Glucose (mg/dL) 197 H (75-99) mg/dL Calcium (8.4-10.2) mg/dL Assessment and Plan Assessment: Acute hypoxemic respiratory failure secondary to COVID 19 pneumonitis, and secondary acute respiratory distress syndrome, with admission to the hospital on September 02, and intubation on 09/12/2020. Status post tracheostomy tube, and PEG tube placement, 09/22/2020, for failure to wean from mechanical ventilation. Elevated inflammatory markers secondary to above. History of hypertension. Former tobacco use. Mildly elevated troponins, without chest pain. New-onset atrial fibrillation with RVR. Lactic acidosis. No computed tomography scan evidence of pulmonary embolism. Plan: Plan dated 09/04/2020. The patient is doing a bit better today. We are starting to wean down his FiO2. Additional recommendations and suggestions are forthcoming. The patient was outside the window for REM. The patient is currently on Lovenox, and Decadron. Additional recommendations and suggestions are forthcoming. We'll continue to follow. Prognosis is guarded. Plan dated 09/05/2020. Clinically, the patient feels a bit better today. He seems to be less short of breath. He is on BiPAP at 12/6 and 80%. The patient's on appropriate medications. I did tell him to move about all he is in bed. Right side down, l eft side down, supine, and prone. The patient is getting the appropriate vitamins, as well as Lovenox and Decadron. He was outside the window for REM. We will continue to follow and make recommendations were appropriate. Plan dated 09/06/2020. His oxygen requiring has gone up by 10%. Yesterday, he was on 80%. He's feeling about the same, no better, and no worse. He is receiving all appropr iate medications including Lovenox, Decadron, vitamins, etc. He was outside the window for REM. We will continue to follow him closely. His labs and medications are reviewed. He will have a chest x-ray in the morning. No additional recommendations are made. Prognosis is guarded. Plan dated 09/22/2020. The patient has been here in the hospital now for 19 days. The patient was admitted back on 09/03/2020. The patient has been on the mechanical ventilator for some quite some time. The patient will need tracheostomy and PEG tube placement. We'll consult surgery for that. Additional recommendations and suggestions are forthcoming. The patient D5W IV will be discontinued. We will attempt to get the patient off of Nimbex first. The patient is currently receiving nutrition with vital high protein at goal at 40 mL an hour. We will continue to follow the patient make recommendations were appropriate. Overall prognosis remains guarded. Additional recommendations and suggestions are forthcoming. Plan dated 09/23/2020. The patient did have a tracheostomy tube, and PEG tube placement done yesterday by surgery. I appreciate that. The patient remains on Nimbex, propofol, and fentanyl. Tube feeds will be resumed today. His PEEP will be increased from 16 up to 20. We'll attempt to wean the FiO2 further. Additional recommendations and suggestions are forthcoming. Labs, chest x-ray, medications, all reviewed. Prognosis is very guarded. We will continue to follow the patient. Plan dated 09/24/2020. The patient underwent tracheostomy tube placement and PEG tube placement on September 22. This is because the patient was failing to progress from intubation and mechanical ventilation, and eventual liberation from mechanical ventilation. The patient remains on Nimbex, propofol, and fentanyl. The patient is receiving nutrition at goal. The FiO2 will be dropped from 60%, down to 50%. Additional recommendations and suggestions are forthcoming. The hope is that we can get the patient off of all these other medications, and eventually get the patient transferred to long-term acute care. Prognosis is guarded. Plan dated 09/25/2020. The patient will have his PEEP dropped from 20, down to 17. In addition, we will attempt to get the patient off of Nimbex. We will maintain both fentanyl and propofol. Additional recommendations and suggestions are forthcoming. Labs, x-rays, and medications are reviewed. Unnecessary medications are discontinued. Current microbiology is negative. No chest x-ray today. The plan is to hopefully get him off of the sedatives and narcotics, so that he can be transferred to a long-term acute care facility. Prognosis is guarded. Time with Patient: Greater than 30
[2020-09-25 12:04] LABS: Glucose,Whole Blood 169 mg/dL (75-99)
--- NOTE | 2020-09-25 12:21 | P.PN ---
Subjective Progress Note Date: 09/25/20 This is a 54-year-old male who was recently admitted with acute hypoxic respiratory failure secondary to COVID-19 pneumonia and is being closely monitored. Continues to remain on mechanical ventilation currently sedated. Patient has had prolonged hospitalization with unsuccessful attempts at weaning and surgery has been consulted for tracheostomy along with PEG tube placement. Patient was on D5 water for hypernatremia and will be discontinued. Tube feedings on hold for surgery today and will resume once PEG tube is okay for use. Per nursing staff patient has also been in the prone position since yesterday evening into this morning and tolerated. Amiodarone has also been discontinued as patient is currently bradycardic. Pulmonary mechanical insulator following closely. Patient is maintained on sliding scale and will monitor closely once tube feedings have resumed. 09/23/2020 Patient is seen in follow-up continues to be closely monitored in the ICU maintained on mechanical vent via tracheostomy as he underwent trach and PEG tube placement yesterday with surgery. Tube feedings to resume via PEG tube this afternoon after clearance from surgery. Chest x-ray today shows bilateral multifocal and confluent opacities left greater than right consistent with COVID-19 again redemonstrated with no significant change from yesterday. Pulmonary also following. White blood count at 20.9, hemoglobin is 11.3, current sodium is 138 with a potassium of 5.2, and creatinine is 0.83. 09/24/2020 Patient continues to be intubated and sedated in the ICU status post tracheostomy and PEG tube placement. Tube feedings have been resumed and patient is tolerating. Chest x-ray today shows continued patchy airspace infiltrates although there is interval improvement noted. Pulmonary following closely. White blood count slightly elevated at 23.2 patient is maintained on IV Solu-Medrol every 6 hours. Sodium 143 with a potassium of 5.0 and current creatinine is 0.84. 09/25/2020 Patient continues to be in the ICU on mechanical ventilation intubated via tracheostomy and continued on sedation and is being closely monitored. PEEP being titrated down slowly and patient continues on Nimbex along with propofol and fentanyl. White blood count on a downward trend 17.2 with hemoglobin of 9.7, sodium is 144 with a potassium of 4.9 and current creatinine is 0.95. FiO2 remains at 50 and maintaining 87 and 90% oxygen saturation. Social work also following and discussion with family about possible LTAC placement. Review of systems: Unable to obtain as patient continues to be intubated and sedated Active Medications Acetaminophen (Acetaminophen Tab 325 Mg Tab) 650 mg PO Q6HR PRN PRN Reason: Fever and/ or Pain Last Admin: 09/16/20 11:48 Dose: 650 mg Documented by: Albuterol Sulfate (Albuterol Hfa Inhaler) 2 puff INHALATION RT-QID PRN PRN Reason: Shortness Of Breath Last Admin: 09/04/20 17:46 Dose: 2 puff Documented by: Albuterol Sulfate (Albuterol Hfa Inhaler) 2 puff INHALATION RT-QID [facility] Last Admin: 09/25/20 11:01 Dose: 2 puff Documented by: Amlodipine Besylate (Amlodipine 10 Mg Tab) 10 mg PO DAILY [facility] Last Admin: 09/25/20 08:42 Dose: 10 mg Documented by: Artificial Tears (Artificial Tears-Hypromellose Drops 15 Ml Btl) 2 drops BOTH EYES QID [facility] Last Admin: 09/25/20 12:03 Dose: 2 drops Documented by: Ascorbic Acid (Ascorbic Acid 500 Mg Tab) 500 mg PO BID [facility] Last Admin: 09/25/20 08:42 Dose: 500 mg Documented by: Aspirin (Aspirin 81 Mg) 81 mg PO DAILY [facility] Last Admin: 09/25/20 08:42 Dose: 81 mg Documented by: Atorvastatin Calcium (Atorvastatin 80 Mg Tab) 80 mg PO DAILY [facility] Last Admin: 09/25/20 08:42 Dose: 80 mg Documented by: Chlorhexidine Gluconate (Chlorhexidine Gluconate 15 Ml Cup) 15 ml MUCOUS MEM BID [facility] Last Admin: 09/25/20 08:42 Dose: 15 ml Documented by: Cholecalciferol (Cholecalciferol 25 Mcg (1000 Iu) Tablet) 125 mcg PO DAILY [facility] Last Admin: 09/25/20 08:41 Dose: 125 mcg Documented by: Enoxaparin Sodium (Enoxaparin 40 Mg/0.4 Ml Syringe) 40 mg SQ DAILY [facility] Last Admin: 09/25/20 08:41 Dose: 40 mg Documented by: Famotidine (Famotidine 20 Mg Tab) 20 mg PO BID [facility] Last Admin: 09/25/20 08:42 Dose: 20 mg Documented by: Heparin Sodium (Porcine) (Heparin Sodium 1,000 Un/Ml (10ml Vl)) 0 unit IV PER PROTOCOL PRN; Protocol PRN Reason: Low PTT Last Admin: 09/03/20 17:35 Dose: 4,900 unit Documented by: Propofol 1,000 mg/ IV Solution 100 mls @ 0 mls/hr IV .Q0M [facility]; Protocol Last Admin: 09/25/20 09:37 Dose: 50 mcg/kg/min, 30.24 mls/hr Documented by: Cisatracurium Besylate 200 mg/ (Sodium Chloride) 200 mls @ 5.61 mls/hr IV .Q24H [facility]; Protocol Last Titration: 09/25/20 08:44 Dose: 2.5 mcg/kg/min, 14.025 mls/hr Documented by: Fentanyl Citrate 1,000 mcg/ (Sodium Chloride) 100 mls @ 0 mls/hr IV .Q0M [facility]; Protocol Last Admin: 09/25/20 08:41 Dose: 1.5 mcg/kg/hr, 13.86 mls/hr Documented by: Insulin Aspart (Insulin Aspart (Novolog) 100 Unit/Ml Vial) 0 unit SQ Q6HR [facility]; Protocol Last Admin: 09/25/20 12:04 Dose: 3 unit Documented by: Lactulose (Lactulose 20 Gm/30 Ml Cup) 20 gm PO QID [facility] Last Admin: 09/25/20 12:03 Dose: Not Given Documented by: Methylprednisolone Sodium Succinate (Methylprednisolone Sod Succi 40 Mg/Ml 1 Ml Vial) 40 mg IV Q8HR [facility] Metoprolol Tartrate (Metoprolol Tartrate 12.5 Mg Tab) 12.5 mg PO BID [facility] Last Admin: 09/25/20 08:42 Dose: 12.5 mg Documented by: Nitroglycerin (Nitroglycerin Sl Tabs 0.4 Mg Tab) 0.4 mg SUBLINGUAL Q5M PRN PRN Reason: Chest Pain Last Admin: 09/07/20 03:35 Dose: 0.4 mg Documented by: Promethazine HCl (Promethazine Hcl 6.25 Mg/5 Ml Cup) 12.5 mg PO QID PRN PRN Reason: Cough Last Admin: 09/06/20 02:07 Dose: 12.5 mg Documented by: Zinc Sulfate (Zinc Sulfate 220 Mg Cap) 220 mg PO DAILY [facility] Last Admin: 09/25/20 08:42 Dose: 220 mg Documented by: Objective - Vital Signs Vital signs: Vital Signs Temp 98.7 F 09/25/20 04:00 Pulse 69 09/25/20 07:00 Resp 32 H 09/25/20 07:00 BP 114/69 09/25/20 07:00 Pulse Ox 94 L 09/25/20 07:00 Intake & Output 09/24/20 09/25/20 09/25/20 18:59 06:59 18:59 Intake Total 268.237 3289.546 29 Output Total 730 890 60 Balance 256.983 243.546 -31 Weight 100.8 kg Intake: IV 101 156 13 0.9 NS 80 120 10 Pressure bag 21 36 3 Intake, IV Titration 623.983 485.546 Amount Cisatracurium 200 mg In 224.961 95.841 Sodium Chloride 0.9% 180 ml @ 1 MCG/KG/MIN 5.61 mls/hr IV .Q24H [facility] Rx#: [id number] fentaNYL (PF). 1,000 mcg 99.022 89.705 In Sodium Chloride 0.9% 80 ml @ Per Protocol IV . Q0M [facility] Rx#:[id number] propofoL 1,000 mg In 300 300 Empty Bag 1 bag @ Titrate IV .Q0M [facility] Rx#: [id number] Tube Feeding 112 192 16 Other 150 300 Output: Urine 730 890 60 Stool 0 Other: Voiding Method Indwelling Catheter Indwelling Catheter ABP, PAP, CO, CI - Last Documented Arterial Blood Pressure 114/52 - Exam Gen: This is a 54-year-old male currently intubated and sedated. FiO2 decreased to 50 maintaining above 90% oxygen saturation HEENT: Head is atraumatic, normocephalic. Pupils equal, round. Sclerae is anicteric. NECK: Supple. No JVD. No lymphadenopathy. No thyromegaly. Tracheostomy noted LUNGS: diminished breath sounds bilaterally with some scattered rhonchi and crackles noted. Tachypneic. No intercostal retractions. HEART: S1, S2 are muffled ABDOMEN: Soft. Obese. Bowel sounds are present. No masses. No tenderness. PEG tube noted EXTREMITIES: No pedal edema. No calf tenderness. NEUROLOGICAL: Unable to completely assess as patient is intubated and sedated on paralytics - Labs CBC & Chem 7: 09/25/20 04:57 09/25/20 04:57 Labs: Abnormal Lab Results - Last 24 Hours (Table) 09/24/20 09/24/20 09/24/20 Range/Units 11:56 17:28 23:45 WBC (3.8-10.6) k/uL RBC (4.30-5.90) m/uL Hgb (13.0-17.5) gm/dL Hct (39.0-53.0) % RDW (11.5-15.5) % Neutrophils # (1.3-7.7) k/uL Lymphocytes # (1.0-4.8) k/uL ABG pCO2 (35-45) mmHg ABG pO2 (83-108) mmHg ABG HCO3 (21-25) mmol/L ABG Total CO2 (19-24) mmol/L Chloride (98-107) mmol/L Carbon Dioxide (22-30) mmol/L BUN (9-20) mg/dL Glucose (74-99) mg/dL POC Glucose (mg/dL) 200 H 199 H 222 H (75-99) mg/dL Calcium (8.4-10.2) mg/dL 09/25/20 09/25/20 09/25/20 Range/Units 04:52 04:57 04:57 WBC 17.2 H (3.8-10.6) k/uL RBC 3.22 L (4.30-5.90) m/uL Hgb 9.7 L D (13.0-17.5) gm/dL Hct 30.5 L (39.0-53.0) % RDW 16.2 H (11.5-15.5) % Neutrophils # 15.5 H (1.3-7.7) k/uL Lymphocytes # 0.6 L (1.0-4.8) k/uL ABG pCO2 57 H (35-45) mmHg ABG pO2 74 L (83-108) mmHg ABG HCO3 33 H (21-25) mmol/L ABG Total CO2 35 H (19-24) mmol/L Chloride 109 H (98-107) mmol/L Carbon Dioxide 33 H (22-30) mmol/L BUN 46 H (9-20) mg/dL Glucose 192 H (74-99) mg/dL POC Glucose (mg/dL) (75-99) mg/dL Calcium 8.0 L (8.4-10.2) mg/dL 09/25/20 Range/Units 06:16 WBC (3.8-10.6) k/uL RBC (4.30-5.90) m/uL Hgb (13.0-17.5) gm/dL Hct (39.0-53.0) % RDW (11.5-15.5) % Neutrophils # (1.3-7.7) k/uL Lymphocytes # (1.0-4.8) k/uL ABG pCO2 (35-45) mmHg ABG pO2 (83-108) mmHg ABG HCO3 (21-25) mmol/L ABG Total CO2 (19-24) mmol/L Chloride (98-107) mmol/L Carbon Dioxide (22-30) mmol/L BUN (9-20) mg/dL Glucose (74-99) mg/dL POC Glucose (mg/dL) 197 H (75-99) mg/dL Calcium (8.4-10.2) mg/dL Assessment and Plan Assessment: -Acute hypoxic respiratory failure secondary to Covid 19 pneumonia, extensive interstitial pneumonia on mechanical ventilation -Status post PEG tube and tracheostomy placement -Acute lactic acidosis -Atrial fibrillation with fast ventricular rate -Change in mental status, acute metabolic encephalopathy -Elevated random blood glucose -Hypernatremia -Hypertension -Elevated troponin possibly secondary to type II acute myocardial infarction secondary to hypoxemia and COVID-19 -History of gastroesophageal reflux disease -GI prophylaxis with Pepcid -DVT prophylaxis with Lovenox -Full code Recommendations and discussion: Recommend to continue with current medications and continue to monitor in the ICU as patient continues to be on mechanical vent intubated and sedated. Continued on IV Solu-Medrol along with Lovenox and vitamin and zinc supplements. Patient currently tracheostomy dependent and continues to be on Nimbex with possible attempts at weaning as tolerated. Continue with Accu-Cheks every 6 and sliding scale as needed. Roofing Supervisor following closely. Pulmonary following closely. Due to multiple complex medical issues, prognosis remains extremely guarded. Will repeat a.m. labs and chest x-ray. Case management and social work following and will be discussing with family about possible LTAC placement.
--- NOTE | 2020-09-25 14:42 | P.PN ---
Subjective Progress Note Date: 09/25/20 CHIEF COMPLAINT: COVID-19 pneumonia HISTORY OF PRESENT ILLNESS: Patient is in the ICU and is intubated. He is status post tracheostomy and PEG tube placement. Patient is tolerating tube feedings. No residual reported. Afebrile. WBC 17.2 PHYSICAL EXAM: VITAL SIGNS: Reviewed. GENERAL: Well-developed in no acute distress. HEENT: Moist buccal mucosa. Head is atraumatic, normocephalic. Tracheostomy site clean dry and intact ABDOMEN: Soft. Nondistended. Nontender. PEG tube site clean dry and intact NEUROLOGIC: Intubated and sedated ASSESSMENT: 1. Acute hypoxic respiratory failure due to COVID-19 pneumonia with prolonged mechanical ventilation status post tracheostomy placement 2. Moderate protein calorie malnutrition status post PEG tube placement PLAN: -Continue titrating tube feedings -Continue supportive care -Continue ICU management Physician Derrick Engineer note has been reviewed by physician. Signing provider agrees with the documented findings, assessment, and plan of care. Objective - Vital Signs Vital signs: Vital Signs Temp 99.0 F 09/25/20 12:00 Pulse 54 L 09/25/20 12:00 Resp 32 H 09/25/20 12:00 BP 144/76 09/25/20 12:00 Pulse Ox 89 L 09/25/20 12:00 Intake & Output 09/24/20 09/25/20 09/25/20 18:59 06:59 18:59 Intake Total 724.812 3579.546 581.855 Output Total 730 890 360 Balance 256.983 243.546 221.855 Weight 100.8 kg Intake: IV 101 156 65 0.9 NS 80 120 50 Pressure bag 21 36 15 Intake, IV Titration 623.983 485.546 437.855 Amount Cisatracurium 200 mg In 224.961 95.841 171.619 Sodium Chloride 0.9% 180 ml @ 1 MCG/KG/MIN 5.61 mls/hr IV .Q24H [facility] Rx#: [id number] fentaNYL (PF). 1,000 mcg 99.022 89.705 89.628 In Sodium Chloride 0.9% 80 ml @ Per Protocol IV . Q0M [facility] Rx#:[id number] propofoL 1,000 mg In 300 300 176.608 Empty Bag 1 bag @ Titrate IV .Q0M [facility] Rx#: [id number] Tube Feeding 112 192 79 Other 150 300 Output: Urine 730 890 360 Stool 0 Other: Voiding Method Indwelling Catheter Indwelling Catheter Indwelling Catheter ABP, PAP, CO, CI - Last Documented Arterial Blood Pressure 100/58 - Labs CBC & Chem 7: 09/25/20 04:57 09/25/20 04:57 Labs: Abnormal Lab Results - Last 24 Hours (Table) 09/24/20 09/24/20 09/25/20 Range/Units 17:28 23:45 04:52 WBC (3.8-10.6) k/uL RBC (4.30-5.90) m/uL Hgb (13.0-17.5) gm/dL Hct (39.0-53.0) % RDW (11.5-15.5) % Neutrophils # (1.3-7.7) k/uL Lymphocytes # (1.0-4.8) k/uL ABG pCO2 57 H (35-45) mmHg ABG pO2 74 L (83-108) mmHg ABG HCO3 33 H (21-25) mmol/L ABG Total CO2 35 H (19-24) mmol/L Chloride (98-107) mmol/L Carbon Dioxide (22-30) mmol/L BUN (9-20) mg/dL Glucose (74-99) mg/dL POC Glucose (mg/dL) 199 H 222 H (75-99) mg/dL Calcium (8.4-10.2) mg/dL 09/25/20 09/25/20 09/25/20 Range/Units 04:57 04:57 06:16 WBC 17.2 H (3.8-10.6) k/uL RBC 3.22 L (4.30-5.90) m/uL Hgb 9.7 L D (13.0-17.5) gm/dL Hct 30.5 L (39.0-53.0) % RDW 16.2 H (11.5-15.5) % Neutrophils # 15.5 H (1.3-7.7) k/uL Lymphocytes # 0.6 L (1.0-4.8) k/uL ABG pCO2 (35-45) mmHg ABG pO2 (83-108) mmHg ABG HCO3 (21-25) mmol/L ABG Total CO2 (19-24) mmol/L Chloride 109 H (98-107) mmol/L Carbon Dioxide 33 H (22-30) mmol/L BUN 46 H (9-20) mg/dL Glucose 192 H (74-99) mg/dL POC Glucose (mg/dL) 197 H (75-99) mg/dL Calcium 8.0 L (8.4-10.2) mg/dL 09/25/20 Range/Units 12:02 WBC (3.8-10.6) k/uL RBC (4.30-5.90) m/uL Hgb (13.0-17.5) gm/dL Hct (39.0-53.0) % RDW (11.5-15.5) % Neutrophils # (1.3-7.7) k/uL Lymphocytes # (1.0-4.8) k/uL ABG pCO2 (35-45) mmHg ABG pO2 (83-108) mmHg ABG HCO3 (21-25) mmol/L ABG Total CO2 (19-24) mmol/L Chloride (98-107) mmol/L Carbon Dioxide (22-30) mmol/L BUN (9-20) mg/dL Glucose (74-99) mg/dL POC Glucose (mg/dL) 169 H (75-99) mg/dL Calcium (8.4-10.2) mg/dL
[2020-09-25] MEDS: methylPREDNISolone SOD SUCCI 40 MG/ML 1 ML VIAL IV SCH (16:57)
[2020-09-25 17:58] LABS: Glucose,Whole Blood 115 mg/dL (75-99)
[2020-09-25 23:42] LABS: Glucose,Whole Blood 208 mg/dL (75-99)
[2020-09-26] MEDS: INSULIN ASPART (NovoLOG) 100 UNIT/ML VIAL SQ SCH ×4 (00:17→17:12)
[2020-09-26] MEDS: methylPREDNISolone SOD SUCCI 40 MG/ML 1 ML VIAL IV SCH ×3 (00:18→15:25)
[2020-09-26] MEDS: fentaNYL (PF). 1,000 MCG in SODIUM CHLORIDE 0.9% 80 ML IV SCH ×3 (04:06→18:14)
[2020-09-26 05:04] LABS: ABG Base Excess 7.1 mmol/L; ABG HCO3 33 mmol/L (21-25); ABG Oxygen Saturation 98.7 % (94-97); ABG PCO2 58 mmHg (35-45); ABG PH 7.36 (7.35-7.45); ABG PO2 121 mmHg (83-108); ABG TCO2 34 mmol/L (19-24)
[2020-09-26 05:38] LABS: Basophils # (A) 0.1 k/uL (0-0.2); Basophils % (A) 0 %; Eosinophils # (A) 0.1 k/uL (0-0.7); Eosinophils % (A) 0 %; HCT 27.3 % (39.0-53.0); HGB 9.3 gm/dL (13.0-17.5); Lymphocytes # (A) 0.3 k/uL (1.0-4.8); Lymphocytes % (A) 2 %; MCV 94.1 fL (80.0-100.0); Mean Platelet Volume 9.5; Monocytes # (A) 0.7 k/uL (0-1.0); Monocytes % (A) 4 %; Neutrophils # (A) 15.8 k/uL (1.3-7.7); Neutrophils % (A) 93 %; Platelet Count 171 k/uL (150-450); RDW 15.8 % (11.5-15.5)
[2020-09-26 05:40] LABS: Allen Test Performed? no
[2020-09-26 05:40] LABS: Potassium 3.5 mmol/L (3.5-5.1)
[2020-09-26 05:43] LABS: African American GFR (CKD) >90 (>60 ml/min/1.73 sqM); Anion Gap -1 mmol/L; Blood Urea Nitrogen 32 mg/dL (9-20); C Reactive Protein 8.7 mg/dL (<1.0); Carbon Dioxide 22 mmol/L (22-30); Chloride 122 mmol/L (98-107); Glucose 112 mg/dL (74-99); LDH 1027 U/L (313-618); Non-African American GFR(CKD) >90 (>60 ml/min/1.73 sqM); Sodium 143 mmol/L (137-145)
[2020-09-26 05:55] LABS: Calcium 4.9 mg/dL (8.4-10.2)
[2020-09-26 06:12] LABS: Glucose,Whole Blood 180 mg/dL (75-99)
[2020-09-26] MEDS ORDERED: CALCIUM GLUCONATE 2 GM in SODIUM CHLORIDE 0.9% 100 ML IVPB ONE (06:47)
[2020-09-26] MEDS: ALBUTEROL HFA INHALER INHALATION SCH ×4 (07:07→20:47)
[2020-09-26] MEDS: POTASSIUM BICARBONATE/CIT AC 20 MEQ TABLET.EFF NG-TUBE SCH ×2 (07:09→08:52)
--- NOTE | 2020-09-26 07:40 | XR ---
EXAMINATION TYPE: XR chest 1V portable DATE OF EXAM: 09/26/2020 HISTORY: Shortness of breath. COMPARISON: 09/24/2020 TECHNIQUE: Single view of the chest is submitted. FINDINGS: Demonstrated are scattered senescent parenchymal change. Scattered infiltrates persist greatest at the left lung base. Tracheostomy tube and PICC line are sta ble. The heart is stable. Hilar and mediastinal structures are within normal limits. Degenerative changes are seen of the dorsal spine. IMPRESSION: 1. Stable chest.
[2020-09-26] MEDS: CHLORHEXIDINE GLUCONATE 15 ML CUP MUCOUS MEM SCH ×2 (08:44→20:01)
[2020-09-26] MEDS: FAMOTIDINE 20 MG TAB PO SCH ×2 (08:45→20:01)
[2020-09-26] MEDS: ASCORBIC ACID 500 MG TAB PO SCH ×2 (08:45→20:01)
[2020-09-26] MEDS: CHOLECALCIFEROL 25 MCG (1000 IU) TABLET PO SCH (08:46)
[2020-09-26] MEDS: amLODIPine 10 MG TAB PO SCH (08:46)
[2020-09-26] MEDS: ATORVASTATIN 80 MG TAB PO SCH (08:46)
[2020-09-26] MEDS: ASPIRIN 81 MG PO SCH (08:46)
[2020-09-26] MEDS: ZINC SULFATE 220 MG CAP PO SCH (08:46)
[2020-09-26] MEDS: ENOXAPARIN 40 MG/0.4 ML SYRINGE SQ SCH (08:47)
[2020-09-26] MEDS: LACTULOSE 20 GM/30 ML CUP PO SCH ×3 (08:48→16:47)
[2020-09-26] MEDS: ARTIFICIAL TEARS-HYPROMELLOSE DROPS 15 ML BTL BOTH EYES SCH ×4 (10:14→20:27)
[2020-09-26] MEDS: METOPROLOL TARTRATE 12.5 MG TAB PO SCH ×4 (10:37→20:28)
--- NOTE | 2020-09-26 10:45 | P.PN ---
Subjective Progress Note Date: 09/26/20 Principal diagnosis: Hypoxemic respiratory failure. 54-year-old white male patient who is an ex smoker, carries [id number] smoking history quit smoking 1 year ago in May, history of hypertension and gout who sees Dr. Contreras, presented to the emergency department on 08/02/2020 with complaints of worsening shortness of breath, cough, and patient was diagnosed with Covid 19 one week ago, was tested at [facility] per Dr. Contreras's order. 2 weeks ago he had symptoms of flulike illness, sore throat, shortness of breath, weakness, muscle aches which progressively became worse, and patient developed worsening shortness of breath and had difficulty breathing and ambulating at home. He was placed on Decadron [address] Contreras and he has 1-1/2 days worth left of it. Chest x-ray in the emergency department showed bilateral interstitial pneumonia. White blood cell count was 33.1, d-dimer was greater than 35.2, CO2 is 16, the rest of electrolytes were unremarkable, B1 is 35 creatinine is 1.04, plasma lactic acid is 4.5, patient was given IV fluids and lactic acid came down to 1.8, total bilirubin was 1.6, AST is 107, ALT is 48, alkaline phosphatase is 114, LDH is 5924, first troponin was 4.190, and the second one went up to 6.960. CRP is 180.3, pro-calcitonin level is 0.33, urinalysis showed 1+ protein, but no definite sign of infection, pulse ox is 86 on room air, patient has significant shortness of breath, and was placed on BiPAP support, currently with pressures of 12/6, and FiO2 of 100% on which he remains this morning, he is afebrile, hemodynamically he is stable, she was started on IV Decadron, we'll start him on intermediate dose of Lovenox 50 mg every 12 hours, CTA chest shows no evidence of pulmonary embolism, and extensive pulmonary infiltrates that are mostly interstitial consistent with severe interstitial pneumonia. Progress note dated 09/04/2020. 54-year-old male, admitted with a diagnosis of COVID 19 pneumonitis. Currently, he is on BiPAP at 12/6 and 90%. FiO2 will be dropped down to 80%. In addition, he is getting saline at 75 mL an hour. The patient's doing better today. He states that he feels better. He still short of breath with activity. I did tell him today to make sure he moves around in bed when he is laying in bed. White count 29.3, hemoglobin 14.6, hematocrit 42.7, platelet count 140,000. D- dimer greater than 34.10. Sodium 136, potassium 5.1, chlorides 105, CO2 25, anion gap 6, BUN 39, creatinine 0.9. LDH is 3965. C-reactive protein 143. Chest x-ray shows a worsening pattern of bilateral airspace disease. Progress note dated 09/05/2020. 54-year-old male, admitted with a diagnosis of COVID 19 pneumonitis. He remains on BiPAP with an FiO2 of 80%. Settings included an IPAP 12, EPAP 6. The patient states that he feels a bit better. He is getting saline at 75 mL an hour. He feels like he is breathing is improved. He does know to move about in bed. No new laboratory data today. His most recent chest x-ray was from yesterday and was reviewed. The patient's on appropriate medications. Progress note dated 09/06/2020. 54-year-old male, seen again today. The patient is on BiPAP, settings of IPAP 12, EPAP 6, and 90%. He is also getting saline at 75 mL an hour. Was admitted with a diagnosis of acute hypoxemic respiratory failure secondary to COVID 19 pneumonia. The patient feels about the same. No better or no worse. He will have a chest x-ray tomorrow. Labs are reviewed. White count 19.3, hemoglobin 15, hematocrit 43.9, and platelet count 92,000. Sodium 135, potassium 4.9, chlorides 109, CO2 20, anion gap 6, BUN 34, and creatinine 0.92. There is no recent chest x-ray to review. Patient was reevaluated today on 09/19/2020, remains intubated and sedated, he is also paralyzed, remains on assist control rate of 32, tidal volume is 420 FiO2 65% and PEEP of 16. ABG showed a pO2 of 72 pCO2 of 63 pH of 7.32. His peak airway pressure is in the high 30s and plateau pressure is 31. Patient remains on IV fluid at 100 mL/h he is on Nimbex at 3, fentanyl at 1 on propofol at 40. He is on tube feeding using vital HP at goal. Today considering his sodium being elevated we have transitioned his IV fluids from 0.9 normal saline to D5W at 100 mL per hour and the patient will be receiving free water flushes via nasogastric tube. Chest x-ray is basically about the same, continues show by basilar patchy infiltrates, consistent with COVID-19 pneumonia, not much of a change is noted in the last couple of days. Hemodynamically gomez, the patient is stable, not requiring any pressors. Reevaluated today on 09/20/2020, patient remains intubated and sedated and mechanically ventilated and paralysis. On assist control rate of 32 tidal volume 420 FiO2 60% PEEP of 16. ABG showed a pO2 of 69 pCO2 of 62 pH of 7.32. Chest x-ray is basically about the same continues to by basilar patchy infiltrates. Remains on propofol at 20 Nimbex at 3 fentanyl at 1 D5W at 100 mL per hour. Remains on tube feeding. He is also receiving free water flushes. He is on enteral feeding using vital HP at 40 mL per hour. CBC is relatively normal hemoglobin is 10.7. Electrolytes sodium remains elevated at 145, however improving from 149 yesterday. BUN is 51 creatinine 1.03. Calcium is 7.9. No inflammatory markers were ordered today. Patient was reevaluated today on 09/21/2020, remains in the ICU, intubated and mechanically ventilated, sedated and paralyzed. Patient is on assist control rate of 32 tidal volume 420 FiO2 60% and PEEP of 16. ABG showed a pO2 of 65 pCO2 of 62 pH of 7.32. Remains on propofol at 25, Nimbex S3 fentanyl at 1 D5W at 100 mL per hour, and vital HP 40/40. Chest x-ray is showing slight improvement in his bilateral patchy infiltrates. Patient has not had a bowel movement in almost over a week, hence we'll start the patient on lactulose and Reglan. Today I have instructed the nurses to consider pronating the patient at least try presently position and hopefully address Nimbex holidays. However the patient is to be prone doubt other chemo on Nimbex. His IV fluid remains D5W and I cut it down to 50 mL per hour. After evaluating the patient, and patient was off Nimbex for a very short period of time developed atrial fibrillation with RVR, Lasix the patient on amiodarone as per protocol, bolused with amiodarone. And he had to go back on Nimbex. Progress note dated 09/22/2020. 54-year-old male, again seen, in room 250. The patient was admitted back on 09/03/2020. He was admitted with a diagnosis of acute hypoxemic respiratory failure secondary to COVID 19 pneumonia. The patient remains on the ventilator. He is on the volume assist control mode, rate of 32, tidal volume 420, FiO2 60%, and PEEP of 16. Blood gases show a PaO2 of 71, PaCO2 60, pH 7.33. The patient will need a tracheostomy and PEG tube placement. Currently, he is in the prone position. He is getting saline at 20 mL an hour, propofol at 40 mcg/kg/m, Nimbex at 3 mcg/kg/m, amiodarone at 0.5 mg/m D5W at 50 mL an hour, which will be discontinued, fentanyl 1 mcg/kg/h, and vital high protein at 40 mL an hour, which is goal. White count 12.2, hemoglobin 10.7, hematocrit 31.1, and platelet count 141,000. Sodium 138, potassium 5.2, chlorides 103, CO2 33, anion gap 2, and BUN and creatinine were 43 and 0.77 respectively., Chest x-ray shows bilateral patchy infiltrates. Progress note dated 09/23/2020. 54-year-old male, again seen in the intensive care unit. The patient was admitted on September 02, and intubated on September 12. The patient underwent tracheostomy tube placement and PEG tube placement yesterday, September 22. Currently, he remains on the I am assist control mode, rate 32, tidal volume 420, FiO2 80%, and PEEP of 16. We are going to increase the PEEP up to 20, and try to wean the FiO2 down further. He currently remains on Nimbex at 2 mcg/kg/m, propofol at 50 mcg/kg/m, fentanyl at 1 mcg/kg/h, saline at 20 mL an hour, and tube feedings with vital high protein at 40 mL an hour, which is goal. White count 20.9, he will monitor him 0.3, hematocrit 33.6, and platelet count is normal. Sodium 138, potassium 5.2, chlorides 104, CO2 32, anion gap 2, BUN 43, creatinine 0.83. Chest x-ray showed bilateral multifocal and confluent opacities, left greater than right, consistent with the diagnosis. Progress note dated 09/24/2020. 54-year-old male, again seen in the intensive care unit, room 250. The patient was admitted to the hospital on September 02, and intubated 10 days later on September 12. The patient underwent tracheostomy and PEG tube placement, on September 22. He remains on the mechanical ventilator. He is on the volume assist control mode, rate 32, tidal volume 420, FiO2 60%, and PEEP of 20. Blood gases show a PaO2 of 74, pCO2 of 69, pH is 7.28. The FiO2 be dropped from 60 sent the patient's currently on Nimbex at 2 mcg/kg/m, we'll follow 50 mcg/kg/m, and fentanyl at 1 mcg/kg/h. The patient's getting saline at 10 mL an hour, and Nepro, for tube feeds, at 16 mL an hour, which is goal. Chest x-ray shows bilateral patchy airspace disease, somewhat improved. White count 23.2, hemoglobin 11.9, hemat ocrit 35.6, platelet count 192,000. Sodium 143, potassium 5, chlorides 106, CO2 35, anion gap 2, BUN 40, and creatinine 0.8. Progress note dated 09/25/2020. 54-year-old male, again seen in room 250. The patient was admitted to the hospital on September 02, and intubated on September 12. The patient underwent tracheostomy, and PEG tube placement, on September 22. He remains on the mechanical ventilator. He is on the volume assist control mode, rate 32, tidal volume 420, FiO2 50%, and PEEP of 20, which we will reduce down to 17. The patient remains on Nimbex at 3 mcg/kg/m, fentanyl 1.5 mcg/kg/h, propofol at 50 mcg/kg/m, saline at 10 mL an hour, and Nepro tube feeds, at 16 mL an hour, which is goal. We will attempt to get the patient off of Nimbex. White count 17.2, hemoglobin 9.7, hematocrit 30.5, platelet count 167,000. Sodium 144, potassium 4.9, chlorides 109, CO2 33, anion gap 2, BUN 46, creatinine 0.95. There was no chest x-ray today. Progress note dated 09/26/2020. 54-year-old male, seen again, and room 250. The patient was admitted to the hospital on September 02, intubated September 12, and underwent tracheostomy placement on September 22. He remains on the mechanical ventilator. He is on the volume assist control mode, rate 32, tidal volume 420, FiO2 60%, PEEP of 17. Blood gases show pO2 121, pCO2 58, pH 7.36. His blood gases were done on 70%. He remains on propofol at 75 mcg/kg/m, fentanyl 1.5 mcg/kg/h, 0.9 at KVO, and tube feedings with Nepro and 16 mL an hour, which is goal. We will attempt to wean the FiO2 down to 50%. Microbiologic cultures are thus far negative. White count 17, hemoglobin 9.3, hematocrit 27.3, platelet count 171,000. D-dimer is 2.23. Sodium 143, potassium 3.5, chlorides 122, CO2 22, BUN 32, creatinine 0.57. LDH is 1027. C-reactive protein is 8.7. Chest x-ray shows diffuse bilateral infiltrates. Chest x-ray is stable. Objective - Vital Signs Vital signs: Vital Signs Temp 98.1 F 09/26/20 08:00 Pulse 45 L 09/26/20 10:00 Resp 32 H 09/26/20 10:00 BP 104/56 09/26/20 09:00 Pulse Ox 94 L 09/26/20 10:00 Intake & Output 09/25/20 09/26/20 09/26/20 18:59 06:59 18:59 Intake Total 2747.230 5259.914 408.222 Output Total 690 840 340 Balance 313.966 317.914 68.222 Weight 102.4 kg Intake: IV 147 153 52 0.9 NS 120 120 40 Pressure bag 27 33 12 Intake, IV Titration 665.966 651.914 262.222 Amount Calcium Gluconate 2 gm In 100 Sodium Chloride 0.9% 100 ml @ 100 mls/hr IVPB ONCE ONE Rx#:[id number] Cisatracurium 200 mg In 195.087 Sodium Chloride 0.9% 180 ml @ 1 MCG/KG/MIN 5.61 mls/hr IV .Q24H SPENSER Rx#: [id number] fentaNYL (PF). 1,000 mcg 177.639 180.85 In Sodium Chloride 0.9% 80 ml @ Per Protocol IV . Q0M SPENSER Rx#:[id number] propofoL 1,000 mg In 293.240 471.064 162.222 Empty Bag 1 bag @ Titrate IV .Q0M SPENSER Rx#: [id number] Tube Feeding 191 193 64 Other 160 30 Output: Urine 690 840 340 Other: Voiding Method Indwelling Catheter Indwelling Catheter Indwelling Catheter ABP, PAP, CO, CI - Last Documented Arterial Blood Pressure 109/55 - Exam Currently sedated, and paralyzed. There is a midline tracheostomy. The patient saturations are 94%. HEENT examination is grossly unremarkable. Neck supple. Full range of motion. No adenopathy thyromegaly or neck vein distention. Cardiovascular examination reveals regular rhythm rate. S1-S2 normal. No S3 or S4. No discernible murmur noted. Heart rate 45 bpm. Lungs reveal coarse bilateral rhonchi, and scattered diffuse crackles. No wheezes are noted. Breath sounds are equal bilaterally. Abdomen soft bowel sounds are heard. No masses or tenderness. A PEG tube is noted. Extremities are intact. No cyanosis clubbing or edema. Skin is without rash or lesion. Neurologic examination cannot be assessed as the patient's currently sedated and paralyzed. - Labs CBC & Chem 7: 09/26/20 05:30 09/26/20 05:00 Labs: Abnormal Lab Results - Last 24 Hours (Table) 09/25/20 09/25/20 09/25/20 Range/Units 12:02 17:56 23:40 WBC (3.8-10.6) k/uL RBC (4.30-5.90) m/uL Hgb (13.0-17.5) gm/dL Hct (39.0-53.0) % RDW (11.5-15.5) % Neutrophils # (1.3-7.7) k/uL Lymphocytes # (1.0-4.8) k/uL D-Dimer (<0.60) mg/L FEU ABG pCO2 (35-45) mmHg ABG pO2 (83-108) mmHg ABG HCO3 (21-25) mmol/L ABG Total CO2 (19-24) mmol/L ABG O2 Saturation (94-97) % Chloride (98-107) mmol/L BUN (9-20) mg/dL Creatinine (0.66-1.25) mg/dL Glucose (74-99) mg/dL POC Glucose (mg/dL) 169 H 115 H 208 H (75-99) mg/dL Calcium (8.4-10.2) mg/dL Lactate Dehydrogenase (313-618) U/L C-Reactive Protein (<1.0) mg/dL 09/26/20 09/26/20 09/26/20 Range/Units 05:00 05:00 05:02 WBC (3.8-10.6) k/uL RBC (4.30-5.90) m/uL Hgb (13.0-17.5) gm/dL Hct (39.0-53.0) % RDW (11.5-15.5) % Neutrophils # (1.3-7.7) k/uL Lymphocytes # (1.0-4.8) k/uL D-Dimer 2.23 H (<0.60) mg/L FEU ABG pCO2 58 H (35-45) mmHg ABG pO2 121 H (83-108) mmHg ABG HCO3 33 H (21-25) mmol/L ABG Total CO2 34 H (19-24) mmol/L ABG O2 Saturation 98.7 H (94-97) % Chloride 122 H (98-107) mmol/L BUN 32 H (9-20) mg/dL Creatinine 0.57 L (0.66-1.25) mg/dL Glucose 112 H (74-99) mg/dL POC Glucose (mg/dL) (75-99) mg/dL Calcium 4.9 L* (8.4-10.2) mg/dL Lactate Dehydrogenase 1027 H (313-618) U/L C-Reactive Protein 8.7 H (<1.0) mg/dL 09/26/20 09/26/20 Range/Units 05:30 06:10 WBC 17.0 H (3.8-10.6) k/uL RBC 2.90 L (4.30-5.90) m/uL Hgb 9.3 L (13.0-17.5) gm/dL Hct 27.3 L (39.0-53.0) % RDW 15.8 H (11.5-15.5) % Neutrophils # 15.8 H (1.3-7.7) k/uL Lymphocytes # 0.3 L (1.0-4.8) k/uL D-Dimer (<0.60) mg/L FEU ABG pCO2 (35-45) mmHg ABG pO2 (83-108) mmHg ABG HCO3 (21-25) mmol/L ABG Total CO2 (19-24) mmol/L ABG O2 Saturation (94-97) % Chloride (98-107) mmol/L BUN (9-20) mg/dL Creatinine (0.66-1.25) mg/dL Glucose (74-99) mg/dL POC Glucose (mg/dL) 180 H (75-99) mg/dL Calcium (8.4-10.2) mg/dL Lactate Dehydrogenase (313-618) U/L C-Reactive Protein (<1.0) mg/dL Assessment and Plan Assessment: Acute hypoxemic respiratory failure secondary to COVID 19 pneumonitis, and secondary acute respiratory distress syndrome, with admission to the hospital on September 02, and intubation on 09/12/2020. Status post tracheostomy tube, and PEG tube placement, 09/22/2020, for failure to wean from mechanical ventilation. Elevated inflammatory markers secondary to above. History of hypertension. Former tobacco use. Mildly elevated troponins, without chest pain. New-onset atrial fibrillation with RVR. Lactic acidosis. No computed tomography scan evidence of pulmonary embolism. Plan: Plan dated 09/04/2020. The patient is doing a bit better today. We are starting to wean down his FiO2. Additional recommendations and suggestions are forthcoming. The patient was outside the window for REM. The patient is currently on Lovenox, and Decadron. Additional recommendations and suggestions are forthcoming. We'll continue to follow. Prognosis is guarded. Plan dated 09/05/2020. Clinically, the patient feels a bit better today. He seems to be less short of breath. He is on BiPAP at 12/6 and 80%. The patient's on appropriate medications. I did tell him to move about all he is in bed. Right side down, left side down, supine, and prone. The patient is getting the appropriate vitamins, as well as Lovenox and Decadron. He was outside the window for REM. We will continue to follow and make recommendations were appropriate. Plan dated 09/06/2020. His oxygen requiring has gone up by 10%. Yesterday, he was on 80%. He's feeling about the same, no better, and no worse. He is receiving all appropriate medications including Lovenox, Decadron, vitamins, etc. He was outside the window for REM. We will continue to follow him closely. His labs and medications are reviewed. He will have a chest x-ray in the morning. No additional recommendations are made. Prognosis is guarded. Plan dated 09/22/2020. The patient has been here in the hospital now for 19 days. The patient was admitted back on 09/03/2020. The patient has been on the mechanical ventilator for some quite some time. The patient will need tracheostomy and PEG tube placement. We'll consult surgery for that. Additional recommendations and suggestions are forthcoming. The patient D5W IV will be discontinued. We will attempt to get the patient off of Nimbex first. The patient is currently receiving nutrition with vital high protein at goal at 40 mL an hour. We will continue to follow the patient make recommendations were appropriate. Overall prognosis remains guarded. Additional recommendations and suggestions are forthcoming. Plan dated 09/23/2020. The patient did have a tracheostomy tube, and PEG tube placement done yesterday by surgery. I appreciate that. The patient remains on Nimbex, propofol, and fentanyl. Tube feeds will be resumed today. His PEEP will be increased from 16 up to 20. We'll attempt to wean the FiO2 further. Additional recommendations and suggestions are forthcoming. Labs, chest x-ray, medications, all reviewed. Prognosis is very guarded. We will continue to follow the patient. Plan dated 09/24/2020. The patient underwent tracheostomy tube placement and PEG tube placement on September 22. This is because the patient was failing to progress from intubation and mechanical ventilation, and eventual liberation from mechanical ventilation. The patient remains on Nimbex, propofol, and fentanyl. The patient is receiving nutrition at goal. The FiO2 will be dropped from 60%, down to 50%. Additional recommendations and suggestions are forthcoming. The hope is that we can get the patient off of all these other medications, and eventually get the patient transferred to long-term acute care. Prognosis is guarded. Plan dated 09/25/2020. The patient will have his PEEP dropped from 20, down to 17. In addition, we will attempt to get the patient off of Nimbex. We will maintain both fentanyl and propofol. Additional recommendations and suggestions are forthcoming. Labs, x-rays, and medications are reviewed. Unnecessary medications are discontinued. Current microbiology is negative. No chest x-ray today. The pl an is to hopefully get him off of the sedatives and narcotics, so that he can be transferred to a long-term acute care facility. Prognosis is guarded. Plan dated 09/26/2020. Medications, labs, and x-rays are reviewed. The patient did have a tracheostomy performed on September 22. Today, we'll attempt to continue to wean the FiO2 down. Once we get it to 50%, we'll start working on reducing the PEEP levels. Culture data is negative thus far. Medications are reviewed and include both propofol a nd fentanyl. He's no longer on Nimbex. Additional recommendations and suggestions are forthcoming. Prognosis is guarded. We will continue to follow the patient and make recommendations where appropriate. Time with Patient: Greater than 30
[2020-09-26 11:25] LABS: Glucose,Whole Blood 189 mg/dL (75-99)
[2020-09-26] MEDS: MAGNESIUM SULFATE-D5W PMX 1 GM in DEXTROSE/WATER 1 100ML.BAG IVPB SCH ×2 (12:31→12:34)
--- NOTE | 2020-09-26 12:34 | P.PN ---
Subjective Progress Note Date: 09/26/20 This is a 54-year-old male who was recently admitted with acute hypoxic respiratory failure secondary to COVID-19 pneumonia and is being closely monitored. Continues to remain on mechanical ventilation currently sedated. Patient has had prolonged hospitalization with unsuccessful attempts at weaning and surgery has been consulted for tracheostomy along with PEG tube placement. Patient was on D5 water for hypernatremia and will be discontinued. Tube feedings on hold for surgery today and will resume once PEG tube is okay for use. Per nursing staff patient has also been in the prone position since yesterday evening into this morning and tolerated. Amiodarone has also been discontinued as patient is currently bradycardic. Pulmonary liability claims adjuster following closely. Patient is maintained on sliding scale and will monitor closely once tube feedings have resumed. 09/23/2020 Patient is seen in follow-up continues to be closely monitored in the ICU maintained on mechanical vent via tracheostomy as he underwent trach and PEG tube placement yesterday with surgery. Tube feedings to resume via PEG tube this afternoon after clearance from surgery. Chest x-ray today shows bilateral multifocal and confluent opacities left greater than right consistent with COVID-19 again redemonstrated with no significant change from yesterday. Pulmonary also following. White blood count at 20.9, hemoglobin is 11.3, current sodium is 138 with a potassium of 5.2, and creatinine is 0.83. 09/24/2020 Patient continues to be intubated and sedated in the ICU status post tracheostomy and PEG tube placement. Tube feedings have been resumed and patient is tolerating. Chest x-ray today shows continued patchy airspace infiltrates although there is interval improvement noted. Pulmonary following closely. White blood count slightly elevated at 23.2 patient is maintained on IV Solu-Medrol every 6 hours. Sodium 143 with a potassium of 5.0 and current creatinine is 0.84. 09/25/2020 Patient continues to be in the ICU on mechanical ventilation intubated via tracheostomy and continued on sedation and is being closely monitored. PEEP being titrated down slowly and patient continues on Nimbex along with propofol and fentanyl. White blood count on a downward trend 17.2 with hemoglobin of 9.7, sodium is 144 with a potassium of 4.9 and current creatinine is 0.95. FiO2 remains at 50 and maintaining 87 and 90% oxygen saturation. Social work also following and discussion with family about possible LTAC placement. 09/26/2020 Patient is seen in follow-up continues to be closely monitored in the ICU. Patient is off of Nimbex since yesterday and tolerating. Patient continues to be sedated and pulmonary liability claims adjuster following closely and working on weaning FiO2 as tolerated. FiO2 has been decreased to 50 and PEEP continues at 17. Patient's calcium was low on this morning's labs at 4.9 and was given a dose of calcium gluconate. Patient labs this morning show sodium of 143 with a potassium of 3.5 and creatinine is 0.57, LDH is 1027, CRP is 8.7 and magnesium is 1.9. Continue with electrolyte replacement per protocol. His repeat potassium this afternoon as showing 6.0 may potentially be a hemolyzed sample and will redraw and monitor closely. Patient did receive that Braden supplementation from this morning's labs as it was 3.5. Review of systems: Unable to obtain as patient continues to be intubated and sedated Active Medications Acetaminophen (Acetaminophen Tab 325 Mg Tab) 650 mg PO Q6HR PRN PRN Reason: Fever and/ or Pain Last Admin: 09/16/20 11:48 Dose: 650 mg Documented by: Albuterol Sulfate (Albuterol Hfa Inhaler) 2 puff INHALATION RT-QID PRN PRN Reason: Shortness Of Breath Last Admin: 09/04/20 17:46 Dose: 2 puff Documented by: Albuterol Sulfate (Albuterol Hfa Inhaler) 2 puff INHALATION RT-QID [facility] Last Admin: 09/26/20 10:55 Dose: 2 puff Documented by: Amlodipine Besylate (Amlodipine 10 Mg Tab) 10 mg PO DAILY [facility] Last Admin: 09/26/20 08:46 Dose: 10 mg Documented by: Artificial Tears (Artificial Tears-Hypromellose Drops 15 Ml Btl) 2 drops BOTH EYES QID [facility] Last Admin: 09/26/20 10:14 Dose: 2 drops Documented by: Ascorbic Acid (Ascorbic Acid 500 Mg Tab) 500 mg PO BID [facility] Last Admin: 09/26/20 08:45 Dose: 500 mg Documented by: Aspirin (Aspirin 81 Mg) 81 mg PO DAILY [facility] Last Admin: 09/26/20 08:46 Dose: 81 mg Documented by: Atorvastatin Calcium (Atorvastatin 80 Mg Tab) 80 mg PO DAILY [facility] Last Admin: 09/26/20 08:46 Dose: 80 mg Documented by: Chlorhexidine Gluconate (Chlorhexidine Gluconate 15 Ml Cup) 15 ml MUCOUS MEM BID [facility] Last Admin: 09/26/20 08:44 Dose: 15 ml Documented by: Cholecalciferol (Cholecalciferol 25 Mcg (1000 Iu) Tablet) 125 mcg PO DAILY [facility] Last Admin: 09/26/20 08:46 Dose: 125 mcg Documented by: Enoxaparin Sodium (Enoxaparin 40 Mg/0.4 Ml Syringe) 40 mg SQ DAILY [facility] Last Admin: 09/26/20 08:47 Dose: 40 mg Documented by: Famotidine (Famotidine 20 Mg Tab) 20 mg PO BID [facility] Last Admin: 09/26/20 08:45 Dose: 20 mg Documented by: Heparin Sodium (Porcine) (Heparin Sodium 1,000 Un/Ml (10ml Vl)) 0 unit IV PER PROTOCOL PRN; Protocol PRN Reason: Low PTT Last Admin: 09/03/20 17:35 Dose: 4,900 unit Documented by: Propofol 1,000 mg/ IV Solution 100 mls @ 0 mls/hr IV .Q0M [facility]; Protocol Last Admin: 09/26/20 11:35 Dose: 75 mcg/kg/min, 46.08 mls/hr Documented by: Cisatracurium Besylate 200 mg/ (Sodium Chloride) 200 mls @ 5.61 mls/hr IV .Q24H [facility]; Protocol Last Titration: 09/25/20 17:38 Dose: 0 mcg/kg/min, 0 mls/hr Documented by: Fentanyl Citrate 1,000 mcg/ (Sodium Chloride) 100 mls @ 0 mls/hr IV .Q0M [facility]; Protocol Last Admin: 09/26/20 10:41 Dose: 1.5 mcg/kg/hr, 13.86 mls/hr Documented by: Magnesium Sulfate/Dextrose 1 (gm/ IV Solution) 100 mls @ 100 mls/hr IVPB Q1H [facility] Stop: 09/26/20 13:29 Insulin Aspart (Insulin Aspart (Novolog) 100 Unit/Ml Vial) 0 unit SQ Q6HR [facility]; Protocol Last Admin: 09/26/20 06:37 Dose: 4 unit Documented by: Lactulose (Lactulose 20 Gm/30 Ml Cup) 20 gm PO QID [facility] Last Admin: 09/26/20 10:58 Dose: Not Given Documented by: Methylprednisolone Sodium Succinate (Methylprednisolone Sod Succi 40 Mg/Ml 1 Ml Vial) 40 mg IV Q8HR [facility] Last Admin: 09/26/20 08:47 Dose: 40 mg Documented by: Metoprolol Tartrate (Metoprolol Tartrate 12.5 Mg Tab) 12.5 mg PO BID [facility] Last Admin: 09/26/20 11:14 Dose: 12.5 mg Documented by: Nitroglycerin (Nitroglycerin Sl Tabs 0.4 Mg Tab) 0.4 mg SUBLINGUAL Q5M PRN PRN Reason: Chest Pain Last Admin: 09/07/20 03:35 Dose: 0.4 mg Documented by: Promethazine HCl (Promethazine Hcl 6.25 Mg/5 Ml Cup) 12.5 mg PO QID PRN PRN Reason: Cough Last Admin: 09/06/20 02:07 Dose: 12.5 mg Documented by: Zinc Sulfate (Zinc Sulfate 220 Mg Cap) 220 mg PO DAILY [facility] Last Admin: 09/26/20 08:46 Dose: 220 mg Documented by: Objective - Vital Signs Vital signs: Vital Signs Temp 98.1 F 09/26/20 08:00 Pulse 49 L 09/26/20 11:00 Resp 10 L 09/26/20 11:00 BP 104/56 09/26/20 09:00 Pulse Ox 91 L 09/26/20 11:00 Intake & Output 09/25/20 09/26/20 09/26/20 18:59 06:59 18:59 Intake Total 5090.212 6704.914 516.625 Output Total 690 840 340 Balance 313.966 317.914 176.625 Weight 102.4 kg Intake: IV 147 153 52 0.9 NS 120 120 40 Pressure bag 27 33 12 Intake, IV Titration 665.966 651.914 370.625 Amount Calcium Gluconate 2 gm In 100 Sodium Chloride 0.9% 100 ml @ 100 mls/hr IVPB ONCE ONE Rx#:[id number] Cisatracurium 200 mg In 195.087 Sodium Chloride 0.9% 180 ml @ 1 MCG/KG/MIN 5.61 mls/hr IV .Q24H [facility] Rx#: [id number] fentaNYL (PF). 1,000 mcg 177.639 180.85 91.245 In Sodium Chloride 0.9% 80 ml @ Per Protocol IV . Q0M [facility] Rx#:[id number] propofoL 1,000 mg In 293.240 471.064 179.380 Empty Bag 1 bag @ Titrate IV .Q0M [facility] Rx#: [id number] Tube Feeding 191 193 64 Other 160 30 Output: Urine 690 840 340 Other: Voiding Method Indwelling Catheter Indwelling Catheter Indwelling Catheter ABP, PAP, CO, CI - Last Documented Arterial Blood Pressure 159/60 - Exam Gen: This is a 54-year-old male currently intubated and sedated. FiO2 decreased to 50 maintaining above 90% oxygen saturation HEENT: Head is atraumatic, normocephalic. Pupils equal, round. Sclerae is anicteric. NECK: Supple. No JVD. No lymphadenopathy. No thyromegaly. Tracheostomy noted LUNGS: diminished breath sounds bilaterally with some scattered rhonchi and crackles noted. Tachypneic. No intercostal retractions. HEART: S1, S2 are muffled ABDOMEN: Soft. Obese. Bowel sounds are present. No masses. No tenderness. PEG tube noted EXTREMITIES: No pedal edema. No calf tenderness. NEUROLOGICAL: Unable to completely assess as patient is intubated and sedated on paralytics - Labs CBC & Chem 7: 09/26/20 05:30 09/26/20 11:25 Labs: Abnormal Lab Results - Last 24 Hours (Table) 09/25/20 09/25/20 09/26/20 Range/Units 17:56 23:40 05:00 WBC (3.8-10.6) k/uL RBC (4.30-5.90) m/uL Hgb (13.0-17.5) gm/dL Hct (39.0-53.0) % RDW (11.5-15.5) % Neutrophils # (1.3-7.7) k/uL Lymphocytes # (1.0-4.8) k/uL D-Dimer 2.23 H (<0.60) mg/L FEU ABG pCO2 (35-45) mmHg ABG pO2 (83-108) mmHg ABG HCO3 (21-25) mmol/L ABG Total CO2 (19-24) mmol/L ABG O2 Saturation (94-97) % Potassium (3.5-5.1) mmol/L Chloride (98-107) mmol/L BUN (9-20) mg/dL Creatinine (0.66-1.25) mg/dL Glucose (74-99) mg/dL POC Glucose (mg/dL) 115 H 208 H (75-99) mg/dL Calcium (8.4-10.2) mg/dL Lactate Dehydrogenase (313-618) U/L C-Reactive Protein (<1.0) mg/dL 09/26/20 09/26/20 09/26/20 Range/Units 05:00 05:02 05:30 WBC 17.0 H (3.8-10.6) k/uL RBC 2.90 L (4.30-5.90) m/uL Hgb 9.3 L (13.0-17.5) gm/dL Hct 27.3 L (39.0-53.0) % RDW 15.8 H (11.5-15.5) % Neutrophils # 15.8 H (1.3-7.7) k/uL Lymphocytes # 0.3 L (1.0-4.8) k/uL D-Dimer (<0.60) mg/L FEU ABG pCO2 58 H (35-45) mmHg ABG pO2 121 H (83-108) mmHg ABG HCO3 33 H (21-25) mmol/L ABG Total CO2 34 H (19-24) mmol/L ABG O2 Saturation 98.7 H (94-97) % Potassium (3.5-5.1) mmol/L Chloride 122 H (98-107) mmol/L BUN 32 H (9-20) mg/dL Creatinine 0.57 L (0.66-1.25) mg/dL Glucose 112 H (74-99) mg/dL POC Glucose (mg/dL) (75-99) mg/dL Calcium 4.9 L* (8.4-10.2) mg/dL Lactate Dehydrogenase 1027 H (313-618) U/L C-Reactive Protein 8.7 H (<1.0) mg/dL 09/26/20 09/26/20 09/26/20 Range/Units 06:10 11:23 11:25 WBC (3.8-10.6) k/uL RBC (4.30-5.90) m/uL Hgb (13.0-17.5) gm/dL Hct (39.0-53.0) % RDW (11.5-15.5) % Neutrophils # (1.3-7.7) k/uL Lymphocytes # (1.0-4.8) k/uL D-Dimer (<0.60) mg/L FEU ABG pCO2 (35-45) mmHg ABG pO2 (83-108) mmHg ABG HCO3 (21-25) mmol/L ABG Total CO2 (19-24) mmol/L ABG O2 Saturation (94-97) % Potassium 6.0 H (3.5-5.1) mmol/L Chloride (98-107) mmol/L BUN (9-20) mg/dL Creatinine (0.66-1.25) mg/dL Glucose (74-99) mg/dL POC Glucose (mg/dL) 180 H 189 H (75-99) mg/dL Calcium (8.4-10.2) mg/dL Lactate Dehydrogenase (313-618) U/L C-Reactive Protein (<1.0) mg/dL Assessment and Plan Assessment: -Acute hypoxic respiratory failure secondary to Covid 19 pneumonia, extensive interstitial pneumonia on mechanical ventilation -Status post PEG tube and tracheostomy placement -Acute lactic acidosis -Hypocalcemia -Atrial fibrillation with fast ventricular rate -Change in mental status, acute metabolic encephalopathy -Elevated random blood glucose -Hypernatremia -Hypertension -Elevated troponin possibly secondary to type II acute myocardial infarction secondary to hypoxemia and COVID-19 -History of gastroesophageal reflux disease -GI prophylaxis with Pepcid -DVT prophylaxis with Lovenox -Full code Recommendations and discussion: Recommend to continue with current medications and continue to monitor in the ICU as patient continues to be on mechanical vent intubated and sedated. Continued on IV Solu-Medrol along with Lovenox and vitamin and zinc supplements. Patient currently tracheostomy dependent and has been off Nimbex for 24 hours and continues with sedation. Weaning as tolerated per liability claims adjuster. Continue with Accu-Cheks every 6 and sliding scale as needed. Cmm Inspector following cl osely. Pulmonary following closely. Due to multiple complex medical issues, prognosis remains extremely guarded. Chest x-ray this morning is stable. Case management and social work following and will be discussing with family about possible LTAC placement.
[2020-09-26] MEDS ORDERED: DEXTROSE 50% SYRINGE 50 ML IVP STA (12:58)
[2020-09-26] MEDS ORDERED: INSULIN REGULAR 100 UNIT/ML VIAL (IV) IV ONE (12:59)
--- NOTE | 2020-09-26 13:16 | P.PN ---
Subjective Progress Note Date: 09/26/20 CHIEF COMPLAINT: COVID-19 pneumonia HISTORY OF PRESENT ILLNESS: Patient is in the ICU and is intubated. He is off of Nimbex. He is status post tracheostomy and PEG tube placement. Patient is tolerating tube feedings. No residual reported. Afebrile. WBC 17.0 PHYSICAL EXAM: VITAL SIGNS: Reviewed. GENERAL: Well-developed in no acute distress. HEENT: Moist buccal mucosa. Head is atraumatic, normocephalic. Tracheostomy site clean dry and intact ABDOMEN: Soft. Nondistended. Nontender. PEG tube site clean dry and intact NEUROLOGIC: Intubated and sedated ASSESSMENT: 1. Acute hypoxic respiratory failure due to COVID-19 pneumonia with prolonged mechanical ventilation status post tracheostomy placement 2. Moderate protein calorie malnutrition status post PEG tube placement PLAN: -Continue tube feedings -Continue supportive care -Continue ICU management Physician Glassine Machine Tender note has been reviewed by physician. Signing provider agrees with the documented findings, assessment, and plan of care. Objective - Vital Signs Vital signs: Vital Signs Temp 98.1 F 09/26/20 08:00 Pulse 49 L 09/26/20 13:00 Resp 32 H 09/26/20 13:00 BP 104/56 09/26/20 09:00 Pulse Ox 87 L 09/26/20 13:00 Intake & Output 09/25/20 09/26/20 09/26/20 18:59 06:59 18:59 Intake Total 5218.131 2320.914 635.345 Output Total 690 840 490 Balance 313.966 317.914 145.345 Weight 102.4 kg 102.4 kg Intake: IV 147 153 78 0.9 NS 120 120 60 Pressure bag 27 33 18 Intake, IV Titration 665.966 651.914 401.345 Amount Calcium Gluconate 2 gm In 100 Sodium Chloride 0.9% 100 ml @ 100 mls/hr IVPB ONCE ONE Rx#:[id number] Cisatracurium 200 mg In 195.087 Sodium Chloride 0.9% 180 ml @ 1 MCG/KG/MIN 5.61 mls/hr IV .Q24H [facility] Rx#: [id number] fentaNYL (PF). 1,000 mcg 177.639 180.85 91.245 In Sodium Chloride 0.9% 80 ml @ Per Protocol IV . Q0M [facility] Rx#:[id number] propofoL 1,000 mg In 293.240 471.064 210.100 Empty Bag 1 bag @ Titrate IV .Q0M [facility] Rx#: [id number] Tube Feeding 191 193 96 Other 160 60 Output: Urine 690 840 490 Other: Voiding Method Indwelling Catheter Indwelling Catheter Indwelling Catheter ABP, PAP, CO, CI - Last Documented Arterial Blood Pressure 126/52 - Labs CBC & Chem 7: 09/26/20 05:30 09/26/20 12:22 Labs: Abnormal Lab Results - Last 24 Hours (Table) 09/25/20 09/25/20 09/26/20 Range/Units 17:56 23:40 05:00 WBC (3.8-10.6) k/uL RBC (4.30-5.90) m/uL Hgb (13.0-17.5) gm/dL Hct (39.0-53.0) % RDW (11.5-15.5) % Neutrophils # (1.3-7.7) k/uL Lymphocytes # (1.0-4.8) k/uL D-Dimer (<0.60) mg/L FEU ABG pCO2 (35-45) mmHg ABG pO2 (83-108) mmHg ABG HCO3 (21-25) mmol/L ABG Total CO2 (19-24) mmol/L ABG O2 Saturation (94-97) % Potassium (3.5-5.1) mmol/L Chloride (98-107) mmol/L BUN (9-20) mg/dL Creatinine (0.66-1.25) mg/dL Glucose (74-99) mg/dL POC Glucose (mg/dL) 115 H 208 H (75-99) mg/dL Calcium (8.4-10.2) mg/dL Lactate Dehydrogenase (313-618) U/L C-Reactive Protein (<1.0) mg/dL Procalcitonin 0.16 H (0.02-0.09) ng/mL 09/26/20 09/26/20 09/26/20 Range/Units 05:00 05:00 05:02 WBC (3.8-10.6) k/uL RBC (4.30-5.90) m/uL Hgb (13.0-17.5) gm/dL Hct (39.0-53.0) % RDW (11.5-15.5) % Neutrophils # (1.3-7.7) k/uL Lymphocytes # (1.0-4.8) k/uL D-Dimer 2.23 H (<0.60) mg/L FEU ABG pCO2 58 H (35-45) mmHg ABG pO2 121 H (83-108) mmHg ABG HCO3 33 H (21-25) mmol/L ABG Total CO2 34 H (19-24) mmol/L ABG O2 Saturation 98.7 H (94-97) % Potassium (3.5-5.1) mmol/L Chloride 122 H (98-107) mmol/L BUN 32 H (9-20) mg/dL Creatinine 0.57 L (0.66-1.25) mg/dL Glucose 112 H (74-99) mg/dL POC Glucose (mg/dL) (75-99) mg/dL Calcium 4.9 L* (8.4-10.2) mg/dL Lactate Dehydrogenase 1027 H (313-618) U/L C-Reactive Protein 8.7 H (<1.0) mg/dL Procalcitonin (0.02-0.09) ng/mL 09/26/20 09/26/20 09/26/20 Range/Units 05:30 06:10 11:23 WBC 17.0 H (3.8-10.6) k/uL RBC 2.90 L (4.30-5.90) m/uL Hgb 9.3 L (13.0-17.5) gm/dL Hct 27.3 L (39.0-53.0) % RDW 15.8 H (11.5-15.5) % Neutrophils # 15.8 H (1.3-7.7) k/uL Lymphocytes # 0.3 L (1.0-4.8) k/uL D-Dimer (<0.60) mg/L FEU ABG pCO2 (35-45) mmHg ABG pO2 (83-108) mmHg ABG HCO3 (21-25) mmol/L ABG Total CO2 (19-24) mmol/L ABG O2 Saturation (94-97) % Potassium (3.5-5.1) mmol/L Chloride (98-107) mmol/L BUN (9-20) mg/dL Creatinine (0.66-1.25) mg/dL Glucose (74-99) mg/dL POC Glucose (mg/dL) 180 H 189 H (75-99) mg/dL Calcium (8.4-10.2) mg/dL Lactate Dehydrogenase (313-618) U/L C-Reactive Protein (<1.0) mg/dL Procalcitonin (0.02-0.09) ng/mL 09/26/20 09/26/20 Range/Units 11:25 12:22 WBC (3.8-10.6) k/uL RBC (4.30-5.90) m/uL Hgb (13.0-17.5) gm/dL Hct (39.0-53.0) % RDW (11.5-15.5) % Neutrophils # (1.3-7.7) k/uL Lymphocytes # (1.0-4.8) k/uL D-Dimer (<0.60) mg/L FEU ABG pCO2 (35-45) mmHg ABG pO2 (83-108) mmHg ABG HCO3 (21-25) mmol/L ABG Total CO2 (19-24) mmol/L ABG O2 Saturation (94-97) % Potassium 6.0 H 5.8 H (3.5-5.1) mmol/L Chloride (98-107) mmol/L BUN (9-20) mg/dL Creatinine (0.66-1.25) mg/dL Glucose (74-99) mg/dL POC Glucose (mg/dL) (75-99) mg/dL Calcium (8.4-10.2) mg/dL Lactate Dehydrogenase (313-618) U/L C-Reactive Protein (<1.0) mg/dL Procalcitonin (0.02-0.09) ng/mL
[2020-09-26 15:39] LABS: Glucose,Whole Blood 187 mg/dL (75-99)
[2020-09-26 17:04] LABS: Glucose,Whole Blood 195 mg/dL (75-99)
[2020-09-27] MEDS: methylPREDNISolone SOD SUCCI 40 MG/ML 1 ML VIAL IV SCH ×4 (00:40→23:35)
[2020-09-27] MEDS: LACTULOSE 20 GM/30 ML CUP PO SCH ×5 (00:42→21:22)
[2020-09-27 00:48] LABS: Glucose,Whole Blood 178 mg/dL (75-99)
[2020-09-27] MEDS: INSULIN ASPART (NovoLOG) 100 UNIT/ML VIAL SQ SCH ×5 (00:58→23:36)
[2020-09-27] MEDS: fentaNYL (PF). 1,000 MCG in SODIUM CHLORIDE 0.9% 80 ML IV SCH ×4 (01:40→23:36)
[2020-09-27 04:57] LABS: Anisocytosis Slight; Basophils % (A) 0 %; Eosinophils % (A) 0 %; HCT 30.2 % (39.0-53.0); HGB 9.7 gm/dL (13.0-17.5); Lymphocytes # (A) 0.6 k/uL (1.0-4.8); Lymphocytes % (A) 3 %; MCH 30.6 pg (25.0-35.0); MCHC 32.2 g/dL (31.0-37.0); Mean Platelet Volume 9.9; Monocytes # (A) 0.8 k/uL (0-1.0); Monocytes % (A) 5 %; Neutrophils # (A) 16.6 k/uL (1.3-7.7); Neutrophils % (A) 92 %; Platelet Count 175 k/uL (150-450); RBC 3.18 m/uL (4.30-5.90); RDW 16.3 % (11.5-15.5); WBC 18.1 k/uL (3.8-10.6)
[2020-09-27 05:04] LABS: ABG Base Excess 7.5 mmol/L; ABG HCO3 33 mmol/L (21-25); ABG Oxygen Saturation 90.9 % (94-97); ABG PCO2 56 mmHg (35-45); ABG PH 7.38 (7.35-7.45); ABG PO2 61 mmHg (83-108); ABG TCO2 34 mmol/L (19-24); Allen Test Performed? Yes
[2020-09-27 05:19] LABS: Magnesium 2.3 mg/dL (1.6-2.3)
[2020-09-27 05:29] LABS: C Reactive Protein 13.5 mg/dL (<1.0)
[2020-09-27 06:06] LABS: Glucose,Whole Blood 163 mg/dL (75-99)
--- NOTE | 2020-09-27 06:55 | XR ---
EXAMINATION TYPE: XR chest 1V portable DATE OF EXAM: 09/27/2020 COMPARISON: 09/26/2020 HISTORY: Covid TECHNIQUE: Single frontal view of the chest is obtained. FINDINGS: There has been mild interval worsening in the partially consolidative opacities in the rig ht mid lower lung zones. The left lung infiltrate essentially unchanged. There is a PICC line in the SVC unchanged in position. There is a tracheostomy tube. There is no large pleural effusion or pneumothorax. Heart and mediastinum are normal. The osseous str uctures are intact.. IMPRESSION: Mild interval worsening in the lung infiltrates on the right. The left lung infiltrates are unchanged.
[2020-09-27] MEDS: ALBUTEROL HFA INHALER INHALATION SCH ×4 (07:29→20:25)
[2020-09-27] MEDS: ENOXAPARIN 40 MG/0.4 ML SYRINGE SQ SCH (08:19)
[2020-09-27] MEDS: ASPIRIN 81 MG PO SCH (08:19)
[2020-09-27] MEDS: ASCORBIC ACID 500 MG TAB PO SCH ×2 (08:19→20:06)
[2020-09-27] MEDS: amLODIPine 10 MG TAB PO SCH (08:19)
[2020-09-27] MEDS: FAMOTIDINE 20 MG TAB PO SCH ×2 (08:19→20:06)
[2020-09-27] MEDS: ZINC SULFATE 220 MG CAP PO SCH (08:19)
[2020-09-27] MEDS: CHOLECALCIFEROL 25 MCG (1000 IU) TABLET PO SCH (08:19)
[2020-09-27] MEDS: ATORVASTATIN 80 MG TAB PO SCH (08:19)
[2020-09-27] MEDS: CHLORHEXIDINE GLUCONATE 15 ML CUP MUCOUS MEM SCH ×2 (08:19→20:06)
[2020-09-27] MEDS: ARTIFICIAL TEARS-HYPROMELLOSE DROPS 15 ML BTL BOTH EYES SCH ×4 (08:20→21:21)
[2020-09-27] MEDS: METOPROLOL TARTRATE 12.5 MG TAB PO SCH ×2 (08:32→21:21)
[2020-09-27 09:27] LABS: African American GFR (CKD) >90 (>60 ml/min/1.73 sqM); Anion Gap -1 mmol/L; Blood Urea Nitrogen 42 mg/dL (9-20); Carbon Dioxide 27 mmol/L (22-30); Chloride 118 mmol/L (98-107); Glucose 137 mg/dL (74-99); Non-African American GFR(CKD) >90 (>60 ml/min/1.73 sqM); Potassium 4.1 mmol/L (3.5-5.1); Sodium 144 mmol/L (137-145)
[2020-09-27 09:30] LABS: Calcium 6.2 mg/dL (8.4-10.2)
[2020-09-27] MEDS ORDERED: CALCIUM GLUCONATE 1 GM in SODIUM CHLORIDE 0.9% 100 ML IVPB ONE (10:00)
--- NOTE | 2020-09-27 10:55 | P.PN ---
Subjective Progress Note Date: 09/27/20 Principal diagnosis: Hypoxemic respiratory failure. 54-year-old white male patient who is an ex smoker, carries [id number] smoking history quit smoking 1 year ago in May, history of hypertension and gout who sees Dr. Contreras, presented to the emergency department on 08/02/2020 with complaints of worsening shortness of breath, cough, and patient was diagnosed with Covid 19 one week ago, was tested at [facility] per Dr. Contreras's order. 2 weeks ago he had symptoms of flulike illness, sore throat, shortness of breath, weakness, muscle aches which progressively became worse, and patient developed worsening shortness of breath and had difficulty breathing and ambulating at home. He was placed on Decadron [address] Contreras and he has 1-1/2 days worth left of it. Chest x-ray in the emergency department showed bilateral interstitial pneumonia. White blood cell count was 33.1, d-dimer was greater than 35.2, CO2 is 16, the rest of electrolytes were unremarkable, B1 is 35 creatinine is 1.04, plasma lactic acid is 4.5, patient was given IV fluids and lactic acid came down to 1.8, total bilirubin was 1.6, AST is 107, ALT is 48, alkaline phosphatase is 114, LDH is 5924, first troponin was 4.190, and the second one went up to 6.960. CRP is 180.3, pro-calcitonin level is 0.33, urinalysis showed 1+ protein, but no definite sign of infection, pulse ox is 86 on room air, patient has significant shortness of breath, and was placed on BiPAP support, currently with pressures of 12/6, and FiO2 of 100% on which he remains this morning, he is afebrile, hemodynamically he is stable, she was started on IV Decadron, we'll start him on intermediate dose of Lovenox 50 mg every 12 hours, CTA chest shows no evidence of pulmonary embolism, and extensive pulmonary infiltrates that are mostly interstitial consistent with severe interstitial pneumonia. Progress note dated 09/04/2020. 54-year-old male, admitted with a diagnosis of COVID 19 pneumonitis. Currently, he is on BiPAP at 12/6 and 90%. FiO2 will be dropped down to 80%. In addition, he is getting saline at 75 mL an hour. The patient's doing better today. He states that he feels better. He still short of breath with activity. I did tell him today to make sure he moves around in bed when he is laying in bed. White count 29.3, hemoglobin 14.6, hematocrit 42.7, platelet count 140,000. D- dimer greater than 34.10. Sodium 136, potassium 5.1, chlorides 105, CO2 25, anion gap 6, BUN 39, creatinine 0.9. LDH is 3965. C-reactive protein 143. Chest x-ray shows a worsening pattern of bilateral airspace disease. Progress note dated 09/05/2020. 54-year-old male, admitted with a diagnosis of COVID 19 pneumonitis. He remains on BiPAP with an FiO2 of 80%. Settings included an IPAP 12, EPAP 6. The patient states that he feels a bit better. He is getting saline at 75 mL an hour. He feels like he is breathing is improved. He does know to move about in bed. No new laboratory data today. His most recent chest x-ray was from yesterday and was reviewed. The patient's on appropriate medications. Progress note dated 09/06/2020. 54-year-old male, seen again today. The patient is on BiPAP, settings of IPAP 12, EPAP 6, and 90%. He is also getting saline at 75 mL an hour. Was admitted with a diagnosis of acute hypoxemic respiratory failure secondary to COVID 19 pneumonia. The patient feels about the same. No better or no worse. He will have a chest x-ray tomorrow. Labs are reviewed. White count 19.3, hemoglobin 15, hematocrit 43.9, and platelet count 92,000. Sodium 135, potassium 4.9, chlorides 109, CO2 20, anion gap 6, BUN 34, and creatinine 0.92. There is no recent chest x-ray to review. Patient was reevaluated today on 09/19/2020, remains intubated and sedated, he is also paralyzed, remains on assist control rate of 32, tidal volume is 420 FiO2 65% and PEEP of 16. ABG showed a pO2 of 72 pCO2 of 63 pH of 7.32. His peak airway pressure is in the high 30s and plateau pressure is 31. Patient remains on IV fluid at 100 mL/h he is on Nimbex at 3, fentanyl at 1 on propofol at 40. He is on tube feeding using vital HP at goal. Today considering his sodium being elevated we have transitioned his IV fluids from 0.9 normal saline to D5W at 100 mL per hour and the patient will be receiving free water flushes via nasogastric tube. Chest x-ray is basically about the same, continues show by basilar patchy infiltrates, consistent with COVID-19 pneumonia, not much of a change is noted in the last couple of days. Hemodynamically gomez, the patient is stable, not requiring any pressors. Reevaluated today on 09/20/2020, patient remains intubated and sedated and mechanically ventilated and paralysis. On assist control rate of 32 tidal volume 420 FiO2 60% PEEP of 16. ABG showed a pO2 of 69 pCO2 of 62 pH of 7.32. Chest x-ray is basically about the same continues to by basilar patchy infiltrates. Remains on propofol at 20 Nimbex at 3 fentanyl at 1 D5W at 100 mL per hour. Remains on tube feeding. He is also receiving free water flushes. He is on enteral feeding using vital HP at 40 mL per hour. CBC is relatively normal hemoglobin is 10.7. Electrolytes sodium remains elevated at 145, however improving from 149 yesterday. BUN is 51 creatinine 1.03. Calcium is 7.9. No inflammatory markers were ordered today. Patient was reevaluated today on 09/21/2020, remains in the ICU, intubated and mechanically ventilated, sedated and paralyzed. Patient is on assist control rate of 32 tidal volume 420 FiO2 60% and PEEP of 16. ABG showed a pO2 of 65 pCO2 of 62 pH of 7.32. Remains on propofol at 25, Nimbex S3 fentanyl at 1 D5W at 100 mL per hour, and vital HP 40/40. Chest x-ray is showing slight improvement in his bilateral patchy infiltrates. Patient has not had a bowel movement in almost over a week, hence we'll start the patient on lactulose and Reglan. Today I have instructed the nurses to consider pronating the patient at least try presently position and hopefully address Nimbex holidays. However the patient is to be prone doubt other chemo on Nimbex. His IV fluid remains D5W and I cut it down to 50 mL per hour. After evaluating the patient, and patient was off Nimbex for a very short period of time developed atrial fibrillation with RVR, Lasix the patient on amiodarone as per protocol, bolused with amiodarone. And he had to go back on Nimbex. Progress note dated 09/22/2020. 54-year-old male, again seen, in room 250. The patient was admitted back on 09/03/2020. He was admitted with a diagnosis of acute hypoxemic respiratory failure secondary to COVID 19 pneumonia. The patient remains on the ventilator. He is on the volume assist control mode, rate of 32, tidal volume 420, FiO2 60%, and PEEP of 16. Blood gases show a PaO2 of 71, PaCO2 60, pH 7.33. The patient will need a tracheostomy and PEG tube placement. Currently, he is in the prone position. He is getting saline at 20 mL an hour, propofol at 40 mcg/kg/m, Nimbex at 3 mcg/kg/m, amiodarone at 0.5 mg/m D5W at 50 mL an hour, which will be discontinued, fentanyl 1 mcg/kg/h, and vital high protein at 40 mL an hour, which is goal. White count 12.2, hemoglobin 10.7, hematocrit 31.1, and platelet count 141,000. Sodium 138, potassium 5.2, chlorides 103, CO2 33, anion gap 2, and BUN and creatinine were 43 and 0.77 respectively., Chest x-ray shows bilateral patchy infiltrates. Progress note dated 09/23/2020. 54-year-old male, again seen in the intensive care unit. The patient was admitted on September 02, and intubated on September 12. The patient underwent tracheostomy tube placement and PEG tube placement yesterday, September 22. Currently, he remains on the I am assist control mode, rate 32, tidal volume 420, FiO2 80%, and PEEP of 16. We are going to increase the PEEP up to 20, and try to wean the FiO2 down further. He currently remains on Nimbex at 2 mcg/kg/m, propofol at 50 mcg/kg/m, fentanyl at 1 mcg/kg/h, saline at 20 mL an hour, and tube feedings with vital high protein at 40 mL an hour, which is goal. White count 20.9, he will monitor him 0.3, hematocrit 33.6, and platelet count is normal. Sodium 138, potassium 5.2, chlorides 104, CO2 32, anion gap 2, BUN 43, creatinine 0.83. Chest x-ray showed bilateral multifocal and confluent opacities, left greater than right, consistent with the diagnosis. Progress note dated 09/24/2020. 54-year-old male, again seen in the intensive care unit, room 250. The patient was admitted to the hospital on September 02, and intubated 10 days later on September 12. The patient underwent tracheostomy and PEG tube placement, on September 22. He remains on the mechanical ventilator. He is on the volume assist control mode, rate 32, tidal volume 420, FiO2 60%, and PEEP of 20. Blood gases show a PaO2 of 74, pCO2 of 69, pH is 7.28. The FiO2 be dropped from 60 sent the patient's currently on Nimbex at 2 mcg/kg/m, we'll follow 50 mcg/kg/m, and fentanyl at 1 mcg/kg/h. The patient's getting saline at 10 mL an hour, and Nepro, for tube feeds, at 16 mL an hour, which is goal. Chest x-ray shows bilateral patchy airspace disease, somewhat improved. White count 23.2, hemoglobin 11.9, hemat ocrit 35.6, platelet count 192,000. Sodium 143, potassium 5, chlorides 106, CO2 35, anion gap 2, BUN 40, and creatinine 0.8. Progress note dated 09/25/2020. 54-year-old male, again seen in room 250. The patient was admitted to the hospital on September 02, and intubated on September 12. The patient underwent tracheostomy, and PEG tube placement, on September 22. He remains on the mechanical ventilator. He is on the volume assist control mode, rate 32, tidal volume 420, FiO2 50%, and PEEP of 20, which we will reduce down to 17. The patient remains on Nimbex at 3 mcg/kg/m, fentanyl 1.5 mcg/kg/h, propofol at 50 mcg/kg/m, saline at 10 mL an hour, and Nepro tube feeds, at 16 mL an hour, which is goal. We will attempt to get the patient off of Nimbex. White count 17.2, hemoglobin 9.7, hematocrit 30.5, platelet count 167,000. Sodium 144, potassium 4.9, chlorides 109, CO2 33, anion gap 2, BUN 46, creatinine 0.95. There was no chest x-ray today. Progress note dated 09/26/2020. 54-year-old male, seen again, and room 250. The patient was admitted to the hospital on September 02, intubated September 12, and underwent tracheostomy placement on September 22. He remains on the mechanical ventilator. He is on the volume assist control mode, rate 32, tidal volume 420, FiO2 60%, PEEP of 17. Blood gases show pO2 121, pCO2 58, pH 7.36. His blood gases were done on 70%. He remains on propofol at 75 mcg/kg/m, fentanyl 1.5 mcg/kg/h, 0.9 at KVO, and tube feedings with Nepro and 16 mL an hour, which is goal. We will attempt to wean the FiO2 down to 50%. Microbiologic cultures are thus far negative. White count 17, hemoglobin 9.3, hematocrit 27.3, platelet count 171,000. D-dimer is 2.23. Sodium 143, potassium 3.5, chlorides 122, CO2 22, BUN 32, creatinine 0.57. LDH is 1027. C-reactive protein is 8.7. Chest x-ray shows diffuse bilateral infiltrates. Chest x-ray is stable. Progress note dated 09/27/2020. 54-year-old male, again seen in room 250. The patient was admitted to the hospital on September 02, intubated on September 12, and had tracheostomy tube placement on September 22. The patient remains on the mechanical ventilator. His vent settings include assist control mode, rate 32, tidal volume 420, FiO2 50%, and PEEP of 17. Arterial blood gases show pO2 61, pCO2 56, pH 7.38. The patient's currently on propofol at 35 mcg/kg/m, and fentanyl 1.5 mcg/kg per hour. The patient's getting saline at KVO, and tube feedings with Nepro at 25 mL an hour which is goal. Chest x-ray is stable. Shows bilateral diffuse infiltrates. White count 18.1, he will 9.7, hematocrit 30.2, platelet count 175,000. D-dimer is 1.27. Sodium 144, potassium 4.1, chlorides 118, CO2 27, BUN 42, creatinine 0.78. LDH is 1528, and C-reactive protein is 13.5. Objective - Vital Signs Vital signs: Vital Signs Temp 98.8 F 09/27/20 08:00 Pulse 47 L 09/27/20 10:00 Resp 31 H 09/27/20 10:00 BP 130/65 09/27/20 08:00 Pulse Ox 91 L 09/27/20 10:00 Intake & Output 09/26/20 09/27/20 09/27/20 18:59 06:59 18:59 Intake Total 1114.277 907.891 378.710 Output Total 850 820 380 Balance 264.277 87.891 -1.290 Weight 102.4 kg 100 kg Intake: IV 156 156 52 0.9 NS 120 120 40 Pressure bag 36 36 12 Intake, IV Titration 660.277 331.891 201.710 Amount Calcium Gluconate 2 gm In 100 Sodium Chloride 0.9% 100 ml @ 100 mls/hr IVPB ONCE ONE Rx#:[id number] fentaNYL (PF). 1,000 mcg 191.245 100 91.938 In Sodium Chloride 0.9% 80 ml @ Per Protocol IV . Q0M [facility] Rx#:[id number] propofoL 1,000 mg In 369.032 231.891 109.772 Empty Bag 1 bag @ Titrate IV .Q0M [facility] Rx#: [id number] Tube Feeding 208 240 95 Other 90 180 30 Output: Urine 850 820 380 Other: Voiding Method Indwelling Catheter Indwelling Catheter ABP, PAP, CO, CI - Last Documented Arterial Blood Pressure 119/51 - Exam Currently sedated. There is a midline tracheostomy. The patient saturations are 93%. HEENT examination is grossly unremarkable. Neck supple. Full range of motion. No adenopathy thyromegaly or neck vein distention. Cardiovascular examination reveals regular rhythm rate. S1-S2 normal. No S3 or S4. No discernible murmur noted. Heart rate 53 bpm. Lungs reveal bilateral rhonchi and crackles. Breath sounds are coarse. Breath sounds equal bilaterally. No wheezes. Abdomen soft bowel sounds are heard. No masses or tenderness. A PEG tube is noted. Extremities are intact. No cyanosis clubbing or edema. Skin is without rash or lesion. Neurologic examination cannot be assessed as the patient's currently sedated. - Labs CBC & Chem 7: 09/27/20 04:30 09/27/20 04:30 Labs: Abnormal Lab Results - Last 24 Hours (Table) 09/26/20 09/26/20 09/26/20 Range/Units 05:00 11:23 11:25 WBC (3.8-10.6) k/uL RBC (4.30-5.90) m/uL Hgb (13.0-17.5) gm/dL Hct (39.0-53.0) % RDW (11.5-15.5) % Neutrophils # (1.3-7.7) k/uL Lymphocytes # (1.0-4.8) k/uL D-Dimer (<0.60) mg/L FEU ABG pCO2 (35-45) mmHg ABG pO2 (83-108) mmHg ABG HCO3 (21-25) mmol/L ABG Total CO2 (19-24) mmol/L ABG O2 Saturation (94-97) % Potassium 6.0 H (3.5-5.1) mmol/L Chloride (98-107) mmol/L BUN (9-20) mg/dL Glucose (74-99) mg/dL POC Glucose (mg/dL) 189 H (75-99) mg/dL Calcium (8.4-10.2) mg/dL Lactate Dehydrogenase (313-618) U/L C-Reactive Protein (<1.0) mg/dL Procalcitonin 0.16 H (0.02-0.09) ng/mL 09/26/20 09/26/20 09/26/20 Range/Units 12:22 15:37 15:49 WBC (3.8-10.6) k/uL RBC (4.30-5.90) m/uL Hgb (13.0-17.5) gm/dL Hct (39.0-53.0) % RDW (11.5-15.5) % Neutrophils # (1.3-7.7) k/uL Lymphocytes # (1.0-4.8) k/uL D-Dimer (<0.60) mg/L FEU ABG pCO2 (35-45) mmHg ABG pO2 (83-108) mmHg ABG HCO3 (21-25) mmol/L ABG Total CO2 (19-24) mmol/L ABG O2 Saturation (94-97) % Potassium 5.8 H 5.5 H (3.5-5.1) mmol/L Chloride (98-107) mmol/L BUN (9-20) mg/dL Glucose (74-99) mg/dL POC Glucose (mg/dL) 187 H (75-99) mg/dL Calcium (8.4-10.2) mg/dL Lactate Dehydrogenase (313-618) U/L C-Reactive Protein (<1.0) mg/dL Procalcitonin (0.02-0.09) ng/mL 09/26/20 09/27/20 09/27/20 Range/Units 16:56 00:47 04:30 WBC 18.1 H (3.8-10.6) k/uL RBC 3.18 L (4.30-5.90) m/uL Hgb 9.7 L (13.0-17.5) gm/dL Hct 30.2 L (39.0-53.0) % RDW 16.3 H (11.5-15.5) % Neutrophils # 16.6 H (1.3-7.7) k/uL Lymphocytes # 0.6 L (1.0-4.8) k/uL D-Dimer (<0.60) mg/L FEU ABG pCO2 (35-45) mmHg ABG pO2 (83-108) mmHg ABG HCO3 (21-25) mmol/L ABG Total CO2 (19-24) mmol/L ABG O2 Saturation (94-97) % Potassium (3.5-5.1) mmol/L Chloride (98-107) mmol/L BUN (9-20) mg/dL Glucose (74-99) mg/dL POC Glucose (mg/dL) 195 H 178 H (75-99) mg/dL Calcium (8.4-10.2) mg/dL Lactate Dehydrogenase (313-618) U/L C-Reactive Protein (<1.0) mg/dL Procalcitonin (0.02-0.09) ng/mL 09/27/20 09/27/20 09/27/20 Range/Units 04:30 04:30 04:30 WBC (3.8-10.6) k/uL RBC (4.30-5.90) m/uL Hgb (13.0-17.5) gm/dL Hct (39.0-53.0) % RDW (11.5-15.5) % Neutrophils # (1.3-7.7) k/uL Lymphocytes # (1.0-4.8) k/uL D-Dimer 1.27 H (<0.60) mg/L FEU ABG pCO2 (35-45) mmHg ABG pO2 (83-108) mmHg ABG HCO3 (21-25) mmol/L ABG Total CO2 (19-24) mmol/L ABG O2 Saturation (94-97) % Potassium (3.5-5.1) mmol/L Chloride 118 H (98-107) mmol/L BUN 42 H (9-20) mg/dL Glucose 137 H (74-99) mg/dL POC Glucose (mg/dL) (75-99) mg/dL Calcium 6.2 L* (8.4-10.2) mg/dL Lactate Dehydrogenase 1528 H (313-618) U/L C-Reactive Protein 13.5 H (<1.0) mg/dL Procalcitonin (0.02-0.09) ng/mL 09/27/20 09/27/20 Range/Units 05:00 06:05 WBC (3.8-10.6) k/uL RBC (4.30-5.90) m/uL Hgb (13.0-17.5) gm/dL Hct (39.0-53.0) % RDW (11.5-15.5) % Neutrophils # (1.3-7.7) k/uL Lymphocytes # (1.0-4.8) k/uL D-Dimer (<0.60) mg/L FEU ABG pCO2 56 H (35-45) mmHg ABG pO2 61 L (83-108) mmHg ABG HCO3 33 H (21-25) mmol/L ABG Total CO2 34 H (19-24) mmol/L ABG O2 Saturation 90.9 L (94-97) % Potassium (3.5-5.1) mmol/L Chloride (98-107) mmol/L BUN (9-20) mg/dL Glucose (74-99) mg/dL POC Glucose (mg/dL) 163 H (75-99) mg/dL Calcium (8.4-10.2) mg/dL Lactate Dehydrogenase (313-618) U/L C-Reactive Protein (<1.0) mg/dL Procalcitonin (0.02-0.09) ng/mL Assessment and Plan Assessment: Acute hypoxemic respiratory failure secondary to COVID 19 pneumonitis, and secondary acute respiratory distress syndrome, with admission to the hospital on September 02, and intubation on 09/12/2020. Status post tracheostomy tube, and PEG tube placement, 09/22/2020, for failure to wean from mechanical ventilation. Elevated inflammatory markers secondary to above. History of hypertension. Former tobacco use. Mildly elevated troponins, without chest pain. New-onset atrial fibrillation with RVR. Lactic acidosis. No computed tomography scan evidence of pulmonary embolism. Plan: Plan dated 09/04/2020. The patient is doing a bit better today. We are starting to wean down his FiO2. Additional recommendations and suggestions are forthcoming. The patient was outside the window for REM. The patient is currently on Lovenox, and Decadron. Additional recommendations and suggestions are forthcoming. We'll continue to follow. Prognosis is guarded. Plan dated 09/05/2020. Clinically, the patient feels a bit better today. He seems to be less short of breath. He is on BiPAP at 12/6 and 80%. The patient's on appropriate medications. I did tell him to move about all he is in bed. Right side down, left side down, supine, and prone. The patient is getting the appropriate vitamins, as well as Lovenox and Decadron. He was outside the window for REM. We will continue to follow and make recommendations were appropriate. Plan dated 09/06/2020. His oxygen requiring has gone up by 10%. Yesterday, he was on 80%. He's feeling about the same, no better, and no worse. He is receiving all appropriate medications including Lovenox, Decadron, vitamins, etc. He was outside the window for REM. We will continue to follow him closely. His labs and medications are reviewed. He will have a chest x-ray in the morning. No additional recommendations are made. Prognosis is guarded. Plan dated 09/22/2020. The patient has been here in the hospital now for 19 days. The patient was admitted back on 09/03/2020. The patient has been on the mechanical ventilator for some quite some time. The patient will need tracheostomy and PEG tube placement. We'll consult surgery for that. Additional recommendations and suggestions are forthcoming. The patient D5W IV will be discontinued. We will attempt to get the patient off of Nimbex first. The patient is currently receiving nutrition with vital high protein at goal at 40 mL an hour. We will continue to follow the patient make recommendations were appropriate. Overall prognosis remains guarded. Additional recommendations and suggestions are f orthcoming. Plan dated 09/23/2020. The patient did have a tracheostomy tube, and PEG tube placement done yesterday by surgery. I appreciate that. The patient remains on Nimbex, propofol, and fentanyl. Tube feeds will be resumed today. His PEEP will be increased from 16 up to 20. We'll attempt to wean the FiO2 further. Additional recommendations and suggestions are forthcoming. Labs, chest x-ray, medications, all reviewed. Prognosis is very guarded. We will continue to follow the patient. Plan dated 09/24/2020. The patient underwent tracheostomy tube placement and PEG tube placement on September 22. This is because the patient was failing to progress from intubation and mechanical ventilation, and eventual liberation from mechanical ventilation. The patient remains on Nimbex, propofol, and fentanyl. The patient is receiving nutrition at goal. The FiO2 will be dropped from 60%, down to 50%. Additional recommendations and suggestions are forthcoming. The hope is that we can get the patient off of all these other medications, and eventually get the patient transferred to long-term acute care. Prognosis is guarded. Plan dated 09/25/2020. The patient will have his PEEP dropped from 20, down to 17. In addition, we will attempt to get the patient off of Nimbex. We will maintain both fentanyl and propofol. Additional recommendations and suggestions are forthcoming. Labs, x-rays, and medications are reviewed. Unnecessary medications are discontinued. Current microbiology is negative. No chest x-ray today. The plan is to hopefully get him off of the sedatives and narcotics, so that he can be transferred to a long-term acute care facility. Prognosis is guarded. Plan dated 09/26/2020. Medications, labs, and x-rays are reviewed. The patient did have a tracheostomy performed on September 22. Today, we'll attempt to continue to wean the FiO2 down. Once we get it to 50%, we'll start working on reducing the PEEP levels. Culture data is negative thus far. Medications are reviewed and include both propofol and fentanyl. He's no longer on Nimbex. Additional recommendations and suggestions are forthcoming. Prognosis is guarded. We will continue to follow the patient and make recommendations where appropriate. Plan dated 09/27/2020. Currently, his blood gases are reasonably stable. No additional changes at this time. The patient was on paralytic. That has been discontinued. We'll continue to wean his propofol and his fentanyl. He is getting nutrition in the form of Nepro at 25 mL an hour, which is goal. Overall prognosis remains guarde d. Labs and x-rays are reviewed. Additional recommendations and suggestions are forthcoming. Prognosis is guarded. Time with Patient: Greater than 30
[2020-09-27 12:00] LABS: Glucose,Whole Blood 148 mg/dL (75-99)
[2020-09-27 13:20] LABS: Glucose,Whole Blood 173 mg/dL (75-99)
--- NOTE | 2020-09-27 16:28 | P.PN ---
Subjective Progress Note Date: 09/27/20 CHIEF COMPLAINT: COVID pneumonia HISTORY OF PRESENT ILLNESS: The patient is a 54 year old male with Covid pneumonia status post trach and PEG. No new issues. The patient remains in the ICU ventilated and sedated. REVIEW OF ORGAN SYSTEMS: On mechanical ventilation. Otherwise unable to answer with vent. PHYSICAL EXAM: VITALS: Reviewed CONSTITUTIONAL: Well developed and in no acute distress. EYES: Conjuctivae without sclera icterus. HEAD, EARS, NOSE, THROAT: Head is atraumatic, normocephalic. RESPIRATORY: Non-labored respirations and equal bilateral excursions. No gross wheezes. Mechanical ventilation CARDIOVASCULAR: Palpable 2+ radial pulses. ABDOMEN: No peritonitis. NEUROLOGIC: No focal or lateralizing signs PSYCH: Sedated STUDIES: Chest x-ray independently reviewed demonstrating moderate pulmonary interstitial edema. This is my independent interpretation. CLINCAL LABS: Reviewed. WBC elevated ASSESSMENT: 1. COVID pneumonia 2. Status post trach and PEG PLAN: 1. Continue supportive care Objective - Vital Signs Vital signs: Vital Signs Temp 97.9 F 09/27/20 16:00 Pulse 51 L 09/27/20 16:00 Resp 32 H 09/27/20 16:00 BP 182/91 09/27/20 12:00 Pulse Ox 93 L 09/27/20 16:00 Intake & Output 09/26/20 09/27/20 09/27/20 18:59 06:59 18:59 Intake Total 1114.277 907.891 698.208 Output Total 950 418 0713 Balance 264.277 87.891 -336.792 Weight 102.4 kg 100 kg Intake: IV 156 156 130 0.9 NS 120 120 100 Pressure bag 36 36 30 Intake, IV Titration 660.277 331.891 263.208 Amount Calcium Gluconate 2 gm In 100 Sodium Chloride 0.9% 100 ml @ 100 mls/hr IVPB ONCE ONE Rx#:[id number] fentaNYL (PF). 1,000 mcg 191.245 100 91.938 In Sodium Chloride 0.9% 80 ml @ Per Protocol IV . Q0M [facility] Rx#:[id number] propofoL 1,000 mg In 369.032 231.891 171.270 Empty Bag 1 bag @ Titrate IV .Q0M [facility] Rx#: [id number] Tube Feeding 208 240 245 Other 90 180 60 Output: Urine 586 272 1610 Other: Voiding Method Indwelling Catheter Indwelling Catheter Indwelling Catheter ABP, PAP, CO, CI - Last Documented Arterial Blood Pressure 141/56 - Labs CBC & Chem 7: 09/28/20 05:05 09/28/20 05:05 Labs: Abnormal Lab Results - Last 24 Hours (Table) 09/26/20 09/27/20 09/27/20 Range/Units 16:56 00:47 04:30 WBC 18.1 H (3.8-10.6) k/uL RBC 3.18 L (4.30-5.90) m/uL Hgb 9.7 L (13.0-17.5) gm/dL Hct 30.2 L (39.0-53.0) % RDW 16.3 H (11.5-15.5) % Neutrophils # 16.6 H (1.3-7.7) k/uL Lymphocytes # 0.6 L (1.0-4.8) k/uL D-Dimer (<0.60) mg/L FEU ABG pCO2 (35-45) mmHg ABG pO2 (83-108) mmHg ABG HCO3 (21-25) mmol/L ABG Total CO2 (19-24) mmol/L ABG O2 Saturation (94-97) % Chloride (98-107) mmol/L BUN (9-20) mg/dL Glucose (74-99) mg/dL POC Glucose (mg/dL) 195 H 178 H (75-99) mg/dL Calcium (8.4-10.2) mg/dL Lactate Dehydrogenase (313-618) U/L C-Reactive Protein (<1.0) mg/dL 09/27/20 09/27/20 09/27/20 Range/Units 04:30 04:30 04:30 WBC (3.8-10.6) k/uL RBC (4.30-5.90) m/uL Hgb (13.0-17.5) gm/dL Hct (39.0-53.0) % RDW (11.5-15.5) % Neutrophils # (1.3-7.7) k/uL Lymphocytes # (1.0-4.8) k/uL D-Dimer 1.27 H (<0.60) mg/L FEU ABG pCO2 (35-45) mmHg ABG pO2 (83-108) mmHg ABG HCO3 (21-25) mmol/L ABG Total CO2 (19-24) mmol/L ABG O2 Saturation (94-97) % Chloride 118 H (98-107) mmol/L BUN 42 H (9-20) mg/dL Glucose 137 H (74-99) mg/dL POC Glucose (mg/dL) (75-99) mg/dL Calcium 6.2 L* (8.4-10.2) mg/dL Lactate Dehydrogenase 1528 H (313-618) U/L C-Reactive Protein 13.5 H (<1.0) mg/dL 09/27/20 09/27/20 09/27/20 Range/Units 05:00 06:05 11:59 WBC (3.8-10.6) k/uL RBC (4.30-5.90) m/uL Hgb (13.0-17.5) gm/dL Hct (39.0-53.0) % RDW (11.5-15.5) % Neutrophils # (1.3-7.7) k/uL Lymphocytes # (1.0-4.8) k/uL D-Dimer (<0.60) mg/L FEU ABG pCO2 56 H (35-45) mmHg ABG pO2 61 L (83-108) mmHg ABG HCO3 33 H (21-25) mmol/L ABG Total CO2 34 H (19-24) mmol/L ABG O2 Saturation 90.9 L (94-97) % Chloride (98-107) mmol/L BUN (9-20) mg/dL Glucose (74-99) mg/dL POC Glucose (mg/dL) 163 H 148 H (75-99) mg/dL Calcium (8.4-10.2) mg/dL Lactate Dehydrogenase (313-618) U/L C-Reactive Protein (<1.0) mg/dL 09/27/20 Range/Units 13:19 WBC (3.8-10.6) k/uL RBC (4.30-5.90) m/uL Hgb (13.0-17.5) gm/dL Hct (39.0-53.0) % RDW (11.5-15.5) % Neutrophils # (1.3-7.7) k/uL Lymphocytes # (1.0-4.8) k/uL D-Dimer (<0.60) mg/L FEU ABG pCO2 (35-45) mmHg ABG pO2 (83-108) mmHg ABG HCO3 (21-25) mmol/L ABG Total CO2 (19-24) mmol/L ABG O2 Saturation (94-97) % Chloride (98-107) mmol/L BUN (9-20) mg/dL Glucose (74-99) mg/dL POC Glucose (mg/dL) 173 H (75-99) mg/dL Calcium (8.4-10.2) mg/dL Lactate Dehydrogenase (313-618) U/L C-Reactive Protein (<1.0) mg/dL
--- NOTE | 2020-09-27 17:48 | P.PN ---
Subjective Progress Note Date: 09/27/20 Principal diagnosis: Acute hypoxic respiratory failure: Secondary to Covid 19 54-year-old male came in with complaints of shortness of breath cough. Episodes of diarrhea nausea, generalized body aches and fevers at home patient was diagnosed with Covid 19 about a week ago patient's symptoms can you to get worse and patient is more short of breath because of which patient came to ER found to be hypoxic was started on IV fluids and patient has elevated inflammatory markers along with elevated troponin of 4.190 which of and up to 6.960 was started on IV heparin Decadron subsequently admitted. Patient had a CT of the chest which did not show any PE but did show extensive pulmonary infiltrates had an echocardiogram as well which did not show any significant abnormality. Cardiology and pulmonology were consulted. Patient is on heparin 50 twice a day which will be switched to anticoagulation those that is 90 twice a day testing elevation of troponin. 09/12/2020 Patient is seen and evaluated on follow-up; remains on BiPAP 12/6 cm of water with an FiO2 of 100%. Condition is essentially the same and unchanged compared to yesterday. The patient is currently on a pulse ox of 94% on above-mentioned BiPAP setting. He remains on Decadron 6 mg IV every 12 hours. He also is on Lovenox 50 mg subcu every 12 hours. He has an LDH level of 5040 at a CRP of 8.2. His inflammatory markers were obtained yesterday and they were quite elevated. He is still able to generate tidal volumes above 500 and his respir atory rate currently is in the 00s for now. Chest x-ray is consistent with diffuse bilateral pulmonary infiltrates. He has a PICC line in his left upper extremity and the patient is receiving TPN for nutritional support. As mentioned, he remains weak and lethargic. Pulmonary service on board; plan to titrate FiO2 down as able; patient did receive Actemra 1; continue to follow-up on inflammatory markers 09/13/2020 Patient is seen and evaluated in ICU; transferred to ICU yesterday when patient desaturates and did not respond to BiPAP and got intubated and mechanically ventilated; patient is currently sedated and remains on an assist-control mode; chest x-ray reveals diffuse bilateral pulmonary infiltrates Patient did have fluctuation in blood pressure which is currently more stable; patient remains on IV Decadron 6 mg every 12 hours, Lovenox 40 mg subcu every 12 hours; currently on TPN for nutritional support; 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 His chest x-ray from today showing diffuse bilateral pulmonary infiltrates more so in the lower lobes and there is extensive consolidation of the lower lobes bilaterally. ET tube is at the level of the aortic knob. NG tube is in place. The patient remains on Decadron and currently is at a dose of 6 mg IV every 12 hours and Lovenox 40 mg subcu every 12 hours. Blood work reveals improvement in inflammatory markers show a drop in the LDH level which is down to 294 and a CRP level is down to 5.2. D-dimer from a few days ago was 15.6 TPN has been discontinued and the patient was switched enteral feeding and the patient is currently on vital high protein at the rate of 20 mL an hour which is at goal for now. IV fluids running at 20 mL an hour. He is hemodynamically stable. His overall fluid balance has been +1.6 L over the past 24 hours. Note that this patient was intubated yesterday after failing BiPAP for several days. 09/27/2020 The patient remains on the mechanical ventilator. His vent settings include assist control mode, rate 32, tidal volume 420, FiO2 50%, and PEEP of 17. Arterial blood gases show pO2 61, pCO2 56, pH 7.38. The patient's currently on propofol at 35 mcg/kg/m, and fentanyl 1.5 mcg/kg per hour. The patient's getting saline at KVO, and tube feedings with Nepro at 25 mL an hour which is goal. Chest x-ray is stable. Shows bilateral diffuse infiltrates. White count 18.1, he will 9.7, hematocrit 30.2, platelet count 175,000. D-dimer is 1.27. Sodium 144, potassium 4.1, chlorides 118, CO2 27, BUN 42, creatinine 0.78. LDH is 1528, and C-reactive protein is 13.5. Objective - Vital Signs Vital signs: Vital Signs Temp 98.8 F 09/27/20 08:00 Pulse 56 L 09/27/20 08:00 Resp 32 H 09/27/20 08:00 BP 130/65 09/27/20 08:00 Pulse Ox 91 L 09/27/20 08:00 Intake & Output 09/26/20 09/27/20 09/27/20 18:59 06:59 18:59 Intake Total 1114.277 907.891 264.208 Output Total 850 820 175 Balance 264.277 87.891 89.208 Weight 102.4 kg 100 kg Intake: IV 156 156 26 0.9 NS 120 120 20 Pressure bag 36 36 6 Intake, IV Titration 660.277 331.891 163.208 Amount Calcium Gluconate 2 gm In 100 Sodium Chloride 0.9% 100 ml @ 100 mls/hr IVPB ONCE ONE Rx#:[id number] fentaNYL (PF). 1,000 mcg 191.245 100 91.938 In Sodium Chloride 0.9% 80 ml @ Per Protocol IV . Q0M [facility] Rx#:[id number] propofoL 1,000 mg In 369.032 231.891 71.27 Empty Bag 1 bag @ Titrate IV .Q0M [facility] Rx#: [id number] Tube Feeding 208 240 45 Other 90 180 30 Output: Urine 850 820 175 Other: Voiding Method Indwelling Catheter Indwelling Catheter ABP, PAP, CO, CI - Last Documented Arterial Blood Pressure 162/64 - Exam GENERAL: The patient is resting, not in any acute distress. Well developed, well nourished. Not in respiratory distress on BiPAP HEENT: Pupils are round and equally reacting to light. EOMI. No scleral icterus. No conjunctival pallor. Normocephalic, atraumatic. No pharyngeal erythema. No thyromegaly. CARDIOVASCULAR: S1 and S2 present. No murmurs, rubs, or gallops. PULMONARY: Chest is clear to auscultation, no wheezing or crackles. ABDOMEN: Soft, nontender, nondistended, normoactive bowel sounds. No palpable organomegaly. MUSCULOSKELETAL: No joint swelling or deformity. EXTREMITIES: No cyanosis, clubbing, or pedal edema. NEUROLOGICAL: Gross neurological examination did not reveal any focal deficits. SKIN: No rashes. - Labs CBC & Chem 7: 09/27/20 04:30 09/27/20 04:30 Labs: Abnormal Lab Results - Last 24 Hours (Table) 09/26/20 09/26/20 09/26/20 Range/Units 05:00 11:23 11:25 WBC (3.8-10.6) k/uL RBC (4.30-5.90) m/uL Hgb (13.0-17.5) gm/dL Hct (39.0-53.0) % RDW (11.5-15.5) % Neutrophils # (1.3-7.7) k/uL Lymphocytes # (1.0-4.8) k/uL D-Dimer (<0.60) mg/L FEU ABG pCO2 (35-45) mmHg ABG pO2 (83-108) mmHg ABG HCO3 (21-25) mmol/L ABG Total CO2 (19-24) mmol/L ABG O2 Saturation (94-97) % Potassium 6.0 H (3.5-5.1) mmol/L Chloride (98-107) mmol/L BUN (9-20) mg/dL Glucose (74-99) mg/dL POC Glucose (mg/dL) 189 H (75-99) mg/dL Calcium (8.4-10.2) mg/dL Lactate Dehydrogenase (313-618) U/L C-Reactive Protein (<1.0) mg/dL Procalcitonin 0.16 H (0.02-0.09) ng/mL 09/26/20 09/26/20 09/26/20 Range/Units 12:22 15:37 15:49 WBC (3.8-10.6) k/uL RBC (4.30-5.90) m/uL Hgb (13.0-17.5) gm/dL Hct (39.0-53.0) % RDW (11.5-15.5) % Neutrophils # (1.3-7.7) k/uL Lymphocytes # (1.0-4.8) k/uL D-Dimer (<0.60) mg/L FEU ABG pCO2 (35-45) mmHg ABG pO2 (83-108) mmHg ABG HCO3 (21-25) mmol/L ABG Total CO2 (19-24) mmol/L ABG O2 Saturation (94-97) % Potassium 5.8 H 5.5 H (3.5-5.1) mmol/L Chloride (98-107) mmol/L BUN (9-20) mg/dL Glucose (74-99) mg/dL POC Glucose (mg/dL) 187 H (75-99) mg/dL Calcium (8.4-10.2) mg/dL Lactate Dehydrogenase (313-618) U/L C-Reactive Protein (<1.0) mg/dL Procalcitonin (0.02-0.09) ng/mL 09/26/20 09/27/20 09/27/20 Range/Units 16:56 00:47 04:30 WBC 18.1 H (3.8-10.6) k/uL RBC 3.18 L (4.30-5.90) m/uL Hgb 9.7 L (13.0-17.5) gm/dL Hct 30.2 L (39.0-53.0) % RDW 16.3 H (11.5-15.5) % Neutrophils # 16.6 H (1.3-7.7) k/uL Lymphocytes # 0.6 L (1.0-4.8) k/uL D-Dimer (<0.60) mg/L FEU ABG pCO2 (35-45) mmHg ABG pO2 (83-108) mmHg ABG HCO3 (21-25) mmol/L ABG Total CO2 (19-24) mmol/L ABG O2 Saturation (94-97) % Potassium (3.5-5.1) mmol/L Chloride (98-107) mmol/L BUN (9-20) mg/dL Glucose (74-99) mg/dL POC Glucose (mg/dL) 195 H 178 H (75-99) mg/dL Calcium (8.4-10.2) mg/dL Lactate Dehydrogenase (313-618) U/L C-Reactive Protein (<1.0) mg/dL Procalcitonin (0.02-0.09) ng/mL 09/27/20 09/27/20 09/27/20 Range/Units 04:30 04:30 04:30 WBC (3.8-10.6) k/uL RBC (4.30-5.90) m/uL Hgb (13.0-17.5) gm/dL Hct (39.0-53.0) % RDW (11.5-15.5) % Neutrophils # (1.3-7.7) k/uL Lymphocytes # (1.0-4.8) k/uL D-Dimer 1.27 H (<0.60) mg/L FEU ABG pCO2 (35-45) mmHg ABG pO2 (83-108) mmHg ABG HCO3 (21-25) mmol/L ABG Total CO2 (19-24) mmol/L ABG O2 Saturation (94-97) % Potassium (3.5-5.1) mmol/L Chloride 118 H (98-107) mmol/L BUN 42 H (9-20) mg/dL Glucose 137 H (74-99) mg/dL POC Glucose (mg/dL) (75-99) mg/dL Calcium 6.2 L* (8.4-10.2) mg/dL Lactate Dehydrogenase 1528 H (313-618) U/L C-Reactive Protein 13.5 H (<1.0) mg/dL Procalcitonin (0.02-0.09) ng/mL 09/27/20 09/27/20 Range/Units 05:00 06:05 WBC (3.8-10.6) k/uL RBC (4.30-5.90) m/uL Hgb (13.0-17.5) gm/dL Hct (39.0-53.0) % RDW (11.5-15.5) % Neutrophils # (1.3-7.7) k/uL Lymphocytes # (1.0-4.8) k/uL D-Dimer (<0.60) mg/L FEU ABG pCO2 56 H (35-45) mmHg ABG pO2 61 L (83-108) mmHg ABG HCO3 33 H (21-25) mmol/L ABG Total CO2 34 H (19-24) mmol/L ABG O2 Saturation 90.9 L (94-97) % Potassium (3.5-5.1) mmol/L Chloride (98-107) mmol/L BUN (9-20) mg/dL Glucose (74-99) mg/dL POC Glucose (mg/dL) 163 H (75-99) mg/dL Calcium (8.4-10.2) mg/dL Lactate Dehydrogenase (313-618) U/L C-Reactive Protein (<1.0) mg/dL Procalcitonin (0.02-0.09) ng/mL Assessment and Plan Assessment: -Acute hypoxic respiratory failure: Secondary to Covid 19. Patient was started on Decadron, vitamins. Patient is out of the window for Remdesivir, he received Tocilizumab and 1 unit of convalescent plasma., Patient is presently on BiPAP 100% FiO2. Patient has a highly elevated BNP because of which she is on DVT prophylaxis at 40 twice a day of Lovenox, patient was negative for PE because of which I'm not using anticoagulation dose of Lovenox. -Lactic acidosis resolved with IV fluids -Hypertension -Ruled out PE -Elevated troponins secondary to type II [place] secondary to hypoxemia -GI prophylaxis with Pepcid
[2020-09-27 18:09] LABS: Glucose,Whole Blood 163 mg/dL (75-99)
[2020-09-27 23:31] LABS: Glucose,Whole Blood 189 mg/dL (75-99)
[2020-09-28] MEDS: CISATRACURIUM 200 MG in SODIUM CHLORIDE 0.9% 180 ML IV SCH (03:14)
[2020-09-28 05:11] LABS: Glucose,Whole Blood 199 mg/dL (75-99)
[2020-09-28] MEDS: INSULIN ASPART (NovoLOG) 100 UNIT/ML VIAL SQ SCH ×4 (05:15→23:42)
[2020-09-28 05:25] LABS: ABG Base Excess 7.8 mmol/L; ABG HCO3 33 mmol/L (21-25); ABG Oxygen Saturation 96.7 % (94-97); ABG PCO2 52 mmHg (35-45); ABG PO2 83 mmHg (83-108); ABG TCO2 34 mmol/L (19-24); Allen Test Performed? Yes
[2020-09-28] MEDS: fentaNYL (PF). 1,000 MCG in SODIUM CHLORIDE 0.9% 80 ML IV SCH ×3 (06:21→20:36)
[2020-09-28 07:00] LABS: Anisocytosis Slight; Basophils % (A) 0 %; Eosinophils % (A) 0 %; HCT 28.3 % (39.0-53.0); HGB 8.8 gm/dL (13.0-17.5); Hypochromasia Slight; Lymphocytes # (A) 0.3 k/uL (1.0-4.8); Lymphocytes % (A) 2 %; MCH 30.1 pg (25.0-35.0); MCHC 31.2 g/dL (31.0-37.0); MCV 96.7 fL (80.0-100.0); Macrocytosis Slight; Monocytes # (A) 0.8 k/uL (0-1.0); Monocytes % (A) 5 %; Neutrophils # (A) 14.3 k/uL (1.3-7.7); Neutrophils % (A) 92 %; Platelet Count 160 k/uL (150-450); RBC 2.93 m/uL (4.30-5.90); RDW 16.6 % (11.5-15.5); WBC 15.5 k/uL (3.8-10.6)
[2020-09-28 07:03] LABS: African American GFR (CKD) >90 (>60 ml/min/1.73 sqM); Anion Gap 1 mmol/L; Blood Urea Nitrogen 51 mg/dL (9-20); Calcium 8.2 mg/dL (8.4-10.2); Carbon Dioxide 33 mmol/L (22-30); Chloride 108 mmol/L (98-107); Glucose 185 mg/dL (74-99); Non-African American GFR(CKD) >90 (>60 ml/min/1.73 sqM); Potassium 4.9 mmol/L (3.5-5.1); Sodium 142 mmol/L (137-145)
--- NOTE | 2020-09-28 07:14 | XR ---
EXAMINATION TYPE: XR chest 1V portable DATE OF EXAM: 09/28/2020 COMPARISON: 09/27/2020 HISTORY: Shortness of breath TECHNIQUE: Single frontal view of the chest is obtained. FINDINGS: Bilateral interstitial infiltrate stable. Tiny effusion on the left. No pneumothorax. Unde rlying COPD suggested. Tracheostomy tube and PICC line stable. Heart size stable IMPRESSION: Stable bilateral diffuse interstitial infiltrates.
[2020-09-28] MEDS: ALBUTEROL HFA INHALER INHALATION SCH ×4 (07:32→21:02)
[2020-09-28] MEDS: ATORVASTATIN 80 MG TAB PO SCH (09:13)
[2020-09-28] MEDS: ASPIRIN 81 MG PO SCH (09:13)
[2020-09-28] MEDS: ASCORBIC ACID 500 MG TAB PO SCH ×2 (09:13→20:36)
[2020-09-28] MEDS: CHLORHEXIDINE GLUCONATE 15 ML CUP MUCOUS MEM SCH ×2 (09:14→20:36)
[2020-09-28] MEDS: methylPREDNISolone SOD SUCCI 40 MG/ML 1 ML VIAL IV SCH ×3 (09:14→23:42)
[2020-09-28] MEDS: amLODIPine 10 MG TAB PO SCH (09:14)
[2020-09-28] MEDS: ZINC SULFATE 220 MG CAP PO SCH (09:14)
[2020-09-28] MEDS: METOPROLOL TARTRATE 12.5 MG TAB PO SCH ×2 (09:14→21:55)
[2020-09-28] MEDS: ENOXAPARIN 40 MG/0.4 ML SYRINGE SQ SCH (09:15)
[2020-09-28] MEDS: CHOLECALCIFEROL 25 MCG (1000 IU) TABLET PO SCH (09:22)
[2020-09-28] MEDS: FAMOTIDINE 20 MG TAB PO SCH ×2 (09:22→20:36)
--- NOTE | 2020-09-28 09:29 | P.PN ---
Subjective Progress Note Date: 09/28/20 Principal diagnosis: CoVID 19 pneumonia 54-year-old white male patient who is an ex smoker, carries [id number] smoking history quit smoking 1 year ago in May, history of hypertension and gout who sees Dr. Contreras, presented to the emergency department on 08/02/2020 with complaints of worsening shortness of breath, cough, and patient was diagnosed with Covid 19 one week ago, was tested at [facility] per Dr. Contreras's order. 2 weeks ago he had symptoms of flulike illness, sore throat, shortness of breath, weakness, muscle aches which progressively became worse, and patient developed worsening shortness of breath and had difficulty breathing and ambulating at home. He was placed on Decadron [address] Contreras and he has 1-1/2 days worth left of it. Chest x-ray in the emergency department showed bilateral interstitial pneumonia. White blood cell count was 33.1, d-dimer was greater than 35.2, CO2 is 16, the rest of electrolytes were unremarkable, B1 is 35 creatinine is 1.04, plasma lactic acid is 4.5, patient was given IV fluids and lactic acid came down to 1.8, total bilirubin was 1.6, AST is 107, ALT is 48, alkaline phosphatase is 114, LDH is 5924, first troponin was 4.190, and the second one went up to 6.960. CRP is 180.3, pro-calcitonin level is 0.33, urinalysis showed 1+ protein, but no definite sign of infection, pulse ox is 86 on room air, patient has significant shortness of breath, and was placed on BiPAP support, currently with pressures of 12/6, and FiO2 of 100% on which he remains this morning, he is afebrile, hemodynamically he is stable, she was started on IV Decadron, we'll start him on intermediate dose of Lovenox 50 mg every 12 hours, CTA chest shows no evidence of pulmonary embolism, and extensive pulmonary infiltrates that are mostly interstitial consistent with severe interstitial pneumonia. Progress note dated 09/04/2020. 54-year-old male, admitted with a diagnosis of COVID 19 pneumonitis. Currently, he is on BiPAP at 12/6 and 90%. FiO2 will be dropped down to 80%. In addition, he is getting saline at 75 mL an hour. The patient's doing better today. He states that he feels better. He still short of breath with activity. I did tell him today to make sure he moves around in bed when he is laying in bed. White count 29.3, hemoglobin 14.6, hematocrit 42.7, platelet count 140,000. D- dimer greater than 34.10. Sodium 136, potassium 5.1, chlorides 105, CO2 25, anion gap 6, BUN 39, creatinine 0.9. LDH is 3965. C-reactive protein 143. Chest x-ray shows a worsening pattern of bilateral airspace disease. Progress note dated 09/05/2020. 54-year-old male, admitted with a diagnosis of COVID 19 pneumonitis. He remains on BiPAP with an FiO2 of 80%. Settings included an IPAP 12, EPAP 6. The patient states that he feels a bit better. He is getting saline at 75 mL an hour. He feels like he is breathing is improved. He does know to move about in bed. No new laboratory data today. His most recent chest x-ray was from yesterday and was reviewed. The patient's on appropriate medications. Progress note dated 09/06/2020. 54-year-old male, seen again today. The patient is on BiPAP, settings of IPAP 12, EPAP 6, and 90%. He is also getting saline at 75 mL an hour. Was admitted with a diagnosis of acute hypoxemic respiratory failure secondary to COVID 19 pneumonia. The patient feels about the same. No better or no worse. He will have a chest x-ray tomorrow. Labs are reviewed. White count 19.3, hemoglobin 15, hematocrit 43.9, and platelet count 92,000. Sodium 135, potassium 4.9, chlorides 109, CO2 20, anion gap 6, BUN 34, and creatinine 0.92. There is no recent chest x-ray to review. The patient is seen today 09/07/2020 in follow-up on the selective care unit. Kita rushing is currently resting comfortably in bed. States he is doing a little better today compared to yesterday. He is still requiring BiPAP support 12/6 and 100% FiO2. Chest x-ray reveals stable bilateral lung infiltrates. Blood glucose 163. He remains on bronchodilators, vitamin supplements, dexamethasone, Lovenox. 0.9 normal saline at 75 ML's per hour. Progress note dated 09/27/2020. 54-year-old male, again seen in room 250. The patient was admitted to the hospital on September 02, intubated on September 12, and had tracheostomy tube placement on September 22. The patient remains on the mechanical ventilator. His vent settings include assist control mode, rate 32, tidal volume 420, FiO2 50%, and PEEP of 17. Arterial blood gases show pO2 61, pCO2 56, pH 7.38. The patient's currently on propofol at 35 mcg/kg/m, and fentanyl 1.5 mcg/kg per hour. The patient's getting saline at KVO, and tube feedings with Nepro at 25 mL an hour which is goal. Chest x-ray is stable. Shows bilateral diffuse infiltrates. White count 18.1, he will 9.7, hematocrit 30.2, platelet count 175,000. D-dimer is 1.27. Sodium 144, potassium 4.1, chlorides 118, CO2 27, BUN 42, creatinine 0.78. LDH is 1528, and C-reactive protein is 13.5. The patient is seen today 09/28/2020 follow-up in the intensive care unit. He was originally admitted to the hospital on 09/02/2020. Intubated and placed on mechanical ventilator on 09/12/2020. He had undergone tracheostomy tube and PEG tube placements on 09/22/2020. He remains on mechanical ventilator and assist control mode rate of 32, tidal volume 420, FiO2 50% and a PEEP of 17. Morning blood gases reveal a P O2 of 83, pCO2 52, pH 7.40. He is sedated on propofol at 40 mcg/kg/m. Fentanyl at 1.5 mcg/mg per hour. 0.9 normal saline at KVO. He is being nourished with Nepro at 25 ML's per hour which is goal. Free water flushes at 30 MLS every 4 hours. He's had daily interruption of sedation. Once off sedation his blood pressure goes up to 200 systolic range. Today's chest x- ray reveals stable bilateral diffuse interstitial infiltrates. He has received 1 unit of convalescent plasma. Blood cultures reveal no growth. White count 15.5. Hemoglobin 8.8. Platelets 160. Sodium 142. Potassium 4.9. Creatinine 0.86. He has continued on Solu-Medrol, Lovenox, vitamin supplements. Objective - Vital Signs Vital signs: Vital Signs Temp 98.8 F 09/28/20 04:00 Pulse 49 L 09/28/20 07:00 Resp 32 H 09/28/20 07:00 BP 114/56 09/28/20 02:00 Pulse Ox 92 L 09/28/20 07:00 Intake & Output 09/27/20 09/28/20 09/28/20 18:59 06:59 18:59 Intake Total 912.208 994.243 38 Output Total 1335 1115 60 Balance -422.792 -120.757 -22 Weight 99.3 kg Intake: IV 169 137 13 0.9 NS 130 110 10 Pressure bag 39 27 3 Intake, IV Titration 363.208 522.243 Amount fentaNYL (PF). 1,000 mcg 191.938 185.493 In Sodium Chloride 0.9% 80 ml @ Per Protocol IV . Q0M SPENSER Rx#:[id number] propofoL 1,000 mg In 171.270 336.75 Empty Bag 1 bag @ Titrate IV .Q0M SPENSER Rx#: [id number] Tube Feeding 320 275 25 Other 60 60 Output: Urine 1335 1115 60 Other: Voiding Method Indwelling Catheter Indwelling Catheter ABP, PAP, CO, CI - Last Documented Arterial Blood Pressure 144/56 - Exam GENERAL EXAM: Intubated, sedated 54-year-old gentleman, on mechanical ventilator current FiO2 50%, comfortable in no acute distress. HEAD: Normocephalic. EYES: Sluggish reaction of pupils, equal size. NOSE: Clear with pink turbinates. THROAT: No erythema or exudates. NECK: No masses, no JVD. CHEST: No chest wall deformity. LUNGS: Equal air entry with crackles in the bilateral posterior bases. CVS: S1 and S2 normal with no audible murmur, regular rhythm. ABDOMEN: No hepatosplenomegaly, normal bowel sounds, no guarding or rigidity. SPINE: No scoliosis or deformity SKIN: No rashes CENTRAL NERVOUS SYSTEM: No focal deficits, tone is normal in all 4 extremities. EXTREMITIES: There is no peripheral edema. No clubbing, no cyanosis. Peripheral pulses are intact. - Labs CBC & Chem 7: 09/28/20 05:05 09/28/20 05:05 Labs: Abnormal Lab Results - Last 24 Hours (Table) 09/27/20 09/27/20 09/27/20 Range/Units 04:30 11:59 13:19 WBC (3.8-10.6) k/uL RBC (4.30-5.90) m/uL Hgb (13.0-17.5) gm/dL Hct (39.0-53.0) % RDW (11.5-15.5) % Neutrophils # (1.3-7.7) k/uL Lymphocytes # (1.0-4.8) k/uL ABG pCO2 (35-45) mmHg ABG HCO3 (21-25) mmol/L ABG Total CO2 (19-24) mmol/L Chloride 118 H (98-107) mmol/L Carbon Dioxide (22-30) mmol/L BUN 42 H (9-20) mg/dL Glucose 137 H (74-99) mg/dL POC Glucose (mg/dL) 148 H 173 H (75-99) mg/dL Calcium 6.2 L* (8.4-10.2) mg/dL 09/27/20 09/27/20 09/28/20 Range/Units 18:06 23:29 05:05 WBC 15.5 H (3.8-10.6) k/uL RBC 2.93 L (4.30-5.90) m/uL Hgb 8.8 L (13.0-17.5) gm/dL Hct 28.3 L (39.0-53.0) % RDW 16.6 H (11.5-15.5) % Neutrophils # 14.3 H (1.3-7.7) k/uL Lymphocytes # 0.3 L (1.0-4.8) k/uL ABG pCO2 (35-45) mmHg ABG HCO3 (21-25) mmol/L ABG Total CO2 (19-24) mmol/L Chloride (98-107) mmol/L Carbon Dioxide (22-30) mmol/L BUN (9-20) mg/dL Glucose (74-99) mg/dL POC Glucose (mg/dL) 163 H 189 H (75-99) mg/dL Calcium (8.4-10.2) mg/dL 09/28/20 09/28/20 09/28/20 Range/Units 05:05 05:09 05:22 WBC (3.8-10.6) k/uL RBC (4.30-5.90) m/uL Hgb (13.0-17.5) gm/dL Hct (39.0-53.0) % RDW (11.5-15.5) % Neutrophils # (1.3-7.7) k/uL Lymphocytes # (1.0-4.8) k/uL ABG pCO2 52 H (35-45) mmHg ABG HCO3 33 H (21-25) mmol/L ABG Total CO2 34 H (19-24) mmol/L Chloride 108 H (98-107) mmol/L Carbon Dioxide 33 H (22-30) mmol/L BUN 51 H (9-20) mg/dL Glucose 185 H (74-99) mg/dL POC Glucose (mg/dL) 199 H (75-99) mg/dL Calcium 8.2 L (8.4-10.2) mg/dL Assessment and Plan Assessment: 1 Acute hypoxemic respiratory failure secondary to COVID 19 pneumonitis. Required intubation on 09/12/2020. Had undergone tracheostomy and PEG tube placement on 09/22/2020. Did receive tocilizumab and convalescent plasma 2 History of hypertension. 3 Former tobacco use. 4 Mildly elevated troponins, without chest pain. 5 Lactic acidosis. 6 No computed tomography scan evidence of pulmonary embolism. Plan: The patient was seen and evaluated by Dr. Brown Chest x-ray, ABGs and labs reviewed Decrease the FiO2 to 40% Continue with daily interruption of sedation Continued on IV Solu-Medrol, Lovenox, vitamin supplements Repeat chest x-ray, inflammatory markers in the a.m. We will continue to follow Critical care time 38 minutes I, the cosigning physician, performed a history & physical examination of the patient. Lungs sounds with crackles in the bilateral posterior bases. Maintaining good O2 saturations in the 90s on 40% FiO2 at the mechanical ventilator. I discussed the assessment and plan of care with my nurse practitioner, Moraima Schwartz. I attest to the above note as dictated by her.
[2020-09-28] MEDS: LACTULOSE 20 GM/30 ML CUP PO SCH ×4 (11:34→21:55)
[2020-09-28] MEDS: CLEVIDIPINE BUTYRATE 25 MG in EMPTY BAG 1 BAG IV SCH ×2 (11:49→15:01)
[2020-09-28 11:56] LABS: Glucose,Whole Blood 179 mg/dL (75-99)
[2020-09-28] MEDS: ARTIFICIAL TEARS-HYPROMELLOSE DROPS 15 ML BTL BOTH EYES SCH ×4 (12:10→21:57)
--- NOTE | 2020-09-28 15:32 | XR ---
EXAMINATION TYPE: XR chest 1V portable DATE OF EXAM: 09/28/2020 COMPARISON: Today HISTORY: Respiratory failure. TECHNIQUE: Single view FINDINGS: There is tracheostomy tube. There is patchy pulmonary extensive interstitial edema. Heart s ize is normal. There is no definite pleural effusion. IMPRESSION: Extensive pulmonary interstitial edema without change.
--- NOTE | 2020-09-28 15:48 | P.PN ---
Subjective Progress Note Date: 09/28/20 CHIEF COMPLAINT: COVID pneumonia HISTORY OF PRESENT ILLNESS: The patient is a 54 year old male with Covid pneumonia status post trach and PEG. The patient remains in the ICU ventilated and sedated. His moderate to severe pulmonary injury due to Covid. REVIEW OF ORGAN SYSTEMS: On mechanical ventilation. No reports of new kidney disease. PHYSICAL EXAM: VITALS: Reviewed CONSTITUTIONAL: Well developed and in no acute distress. EYES: Conjuctivae without sclera icterus. HEAD, EARS, NOSE, THROAT: Head is atraumatic, normocephalic. Trachea intact. RESPIRATORY: Non-labored respirations and equal bilateral excursions. No gross wheezes. Mechanical ventilation CARDIOVASCULAR: Palpable 2+ radial pulses. ABDOMEN: No peritonitis. Gastrostomy tube intact. NEUROLOGIC: No focal or lateralizing signs PSYCH: Sedated CLINCAL LABS: Reviewed. WBC elevated genin down from 18,000 and 15,000. ASSESSMENT: 1. COVID pneumonia 2. Status post trach and PEG PLAN: 1. Continue supportive care Objective - Vital Signs Vital signs: Vital Signs Temp 100.0 F H 09/28/20 12:00 Pulse 66 09/28/20 15:00 Resp 25 H 09/28/20 15:00 BP 138/63 09/28/20 15:00 Pulse Ox 85 L 09/28/20 15:00 Intake & Output 09/27/20 09/28/20 09/28/20 18:59 06:59 18:59 Intake Total 912.208 994.243 596.783 Output Total 1335 1115 620 Balance -422.792 -120.757 -23.217 Weight 99.3 kg Intake: IV 169 137 91 0.9 NS 130 110 70 Pressure bag 39 27 21 Intake, IV Titration 363.208 522.243 270.783 Amount Clevidipine Butyrate 25 30.666 mg In Empty Bag 1 bag @ 1 MG/HR 2 mls/hr IV .Q24H SPENSER Rx#:[id number] fentaNYL (PF). 1,000 mcg 191.938 185.493 100 In Sodium Chloride 0.9% 80 ml @ Per Protocol IV . Q0M SPENSER Rx#:[id number] propofoL 1,000 mg In 171.270 336.75 140.117 Empty Bag 1 bag @ Titrate IV .Q0M SPENSER Rx#: [id number] Tube Feeding 320 275 175 Other 60 60 60 Output: Urine 1335 1115 620 Other: Voiding Method Indwelling Catheter Indwelling Catheter ABP, PAP, CO, CI - Last Documented Arterial Blood Pressure 174/68 - Labs CBC & Chem 7: 09/28/20 05:05 09/28/20 05:05 Labs: Abnormal Lab Results - Last 24 Hours (Table) 09/27/20 09/27/20 09/28/20 Range/Units 18:06 23:29 05:05 WBC 15.5 H (3.8-10.6) k/uL RBC 2.93 L (4.30-5.90) m/uL Hgb 8.8 L (13.0-17.5) gm/dL Hct 28.3 L (39.0-53.0) % RDW 16.6 H (11.5-15.5) % Neutrophils # 14.3 H (1.3-7.7) k/uL Lymphocytes # 0.3 L (1.0-4.8) k/uL ABG pCO2 (35-45) mmHg ABG HCO3 (21-25) mmol/L ABG Total CO2 (19-24) mmol/L Chloride (98-107) mmol/L Carbon Dioxide (22-30) mmol/L BUN (9-20) mg/dL Glucose (74-99) mg/dL POC Glucose (mg/dL) 163 H 189 H (75-99) mg/dL Calcium (8.4-10.2) mg/dL 09/28/20 09/28/20 09/28/20 Range/Units 05:05 05:09 05:22 WBC (3.8-10.6) k/uL RBC (4.30-5.90) m/uL Hgb (13.0-17.5) gm/dL Hct (39.0-53.0) % RDW (11.5-15.5) % Neutrophils # (1.3-7.7) k/uL Lymphocytes # (1.0-4.8) k/uL ABG pCO2 52 H (35-45) mmHg ABG HCO3 33 H (21-25) mmol/L ABG Total CO2 34 H (19-24) mmol/L Chloride 108 H (98-107) mmol/L Carbon Dioxide 33 H (22-30) mmol/L BUN 51 H (9-20) mg/dL Glucose 185 H (74-99) mg/dL POC Glucose (mg/dL) 199 H (75-99) mg/dL Calcium 8.2 L (8.4-10.2) mg/dL 09/28/20 Range/Units 11:55 WBC (3.8-10.6) k/uL RBC (4.30-5.90) m/uL Hgb (13.0-17.5) gm/dL Hct (39.0-53.0) % RDW (11.5-15.5) % Neutrophils # (1.3-7.7) k/uL Lymphocytes # (1.0-4.8) k/uL ABG pCO2 (35-45) mmHg ABG HCO3 (21-25) mmol/L ABG Total CO2 (19-24) mmol/L Chloride (98-107) mmol/L Carbon Dioxide (22-30) mmol/L BUN (9-20) mg/dL Glucose (74-99) mg/dL POC Glucose (mg/dL) 179 H (75-99) mg/dL Calcium (8.4-10.2) mg/dL
[2020-09-28 18:10] LABS: Glucose,Whole Blood 169 mg/dL (75-99)
--- NOTE | 2020-09-28 19:39 | P.PN ---
Subjective Progress Note Date: 09/28/20 Principal diagnosis: Acute hypoxic respiratory failure: Secondary to Covid 19 54-year-old male came in with complaints of shortness of breath cough. Episodes of diarrhea nausea, generalized body aches and fevers at home patient was diagnosed with Covid 19 about a week ago patient's symptoms can you to get worse and patient is more short of breath because of which patient came to ER found to be hypoxic was started on IV fluids and patient has elevated inflammatory markers along with elevated troponin of 4.190 which of and up to 6.960 was started on IV heparin Decadron subsequently admitted. Patient had a CT of the chest which did not show any PE but did show extensive pulmonary infiltrates had an echocardiogram as well which did not show any significant abnormality. Cardiology and pulmonology were consulted. Patient is on heparin 50 twice a day which will be switched to anticoagulation those that is 90 twice a day testing elevation of troponin. 09/12/2020 Patient is seen and evaluated on follow-up; remains on BiPAP 12/6 cm of water with an FiO2 of 100%. Condition is essentially the same and unchanged compared to yesterday. The patient is currently on a pulse ox of 94% on above-mentioned BiPAP setting. He remains on Decadron 6 mg IV every 12 hours. He also is on Lovenox 50 mg subcu every 12 hours. He has an LDH level of 5040 at a CRP of 8.2. His inflammatory markers were obtained yesterday and they were quite elevated. He is still able to generate tidal volumes above 500 and his respir atory rate currently is in the 00s for now. Chest x-ray is consistent with diffuse bilateral pulmonary infiltrates. He has a PICC line in his left upper extremity and the patient is receiving TPN for nutritional support. As mentioned, he remains weak and lethargic. Pulmonary service on board; plan to titrate FiO2 down as able; patient did receive Actemra 1; continue to follow-up on inflammatory markers 09/13/2020 Patient is seen and evaluated in ICU; transferred to ICU yesterday when patient desaturates and did not respond to BiPAP and got intubated and mechanically ventilated; patient is currently sedated and remains on an assist-control mode; chest x-ray reveals diffuse bilateral pulmonary infiltrates Patient did have fluctuation in blood pressure which is currently more stable; patient remains on IV Decadron 6 mg every 12 hours, Lovenox 40 mg subcu every 12 hours; currently on TPN for nutritional support; 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 His chest x-ray from today showing diffuse bilateral pulmonary infiltrates more so in the lower lobes and there is extensive consolidation of the lower lobes bilaterally. ET tube is at the level of the aortic knob. NG tube is in place. The patient remains on Decadron and currently is at a dose of 6 mg IV every 12 hours and Lovenox 40 mg subcu every 12 hours. Blood work reveals improvement in inflammatory markers show a drop in the LDH level which is down to 294 and a CRP level is down to 5.2. D-dimer from a few days ago was 15.6 TPN has been discontinued and the patient was switched enteral feeding and the patient is currently on vital high protein at the rate of 20 mL an hour which is at goal for now. IV fluids running at 20 mL an hour. He is hemodynamically stable. His overall fluid balance has been +1.6 L over the past 24 hours. Note that this patient was intubated yesterday after failing BiPAP for several days. 09/27/2020 The patient remains on the mechanical ventilator. His vent settings include assist control mode, rate 32, tidal volume 420, FiO2 50%, and PEEP of 17. Arterial blood gases show pO2 61, pCO2 56, pH 7.38. The patient's currently on propofol at 35 mcg/kg/m, and fentanyl 1.5 mcg/kg per hour. The patient's getting saline at KVO, and tube feedings with Nepro at 25 mL an hour which is goal. Chest x-ray is stable. Shows bilateral diffuse infiltrates. White count 18.1, he will 9.7, hematocrit 30.2, platelet count 175,000. D-dimer is 1.27. Sodium 144, potassium 4.1, chlorides 118, CO2 27, BUN 42, creatinine 0.78. LDH is 1528, and C-reactive protein is 13.5. 09/28/2020 patient is seen in follow-up in the intensive care unit. HRemains intubated and on mechanical ventilator. He had undergone tracheostomy tube and PEG tube placements on 09/22/2020. He is sedated on propofol at 40 mcg/kg/m. Fentanyl at 1.5 mcg/mg per hour. 0.9 normal saline at KVO. He is being nourished with Nepro at 25 ML's per hour which is goal. Free water flushes at 30 MLS every 4 hours. He's had daily interruption of sedation. Once off sedation his blood pressure goes up to 200 systolic range. Today's chest x-ray reveals stable bilateral diffuse interstitial infiltrates. He has received 1 unit of convalescent plasma. Blood cultures reveal no growth. White count 15.5. Hemoglobin 8.8. Platelets 160. Sodium 142. Potassium 4.9. Creatinine 0.86. He has continued on Solu-Medrol, Lovenox, vitamin supplements. Prognosis remains guarded. Objective - Vital Signs Vital signs: Vital Signs Temp 98.8 F 09/28/20 04:00 Pulse 49 L 09/28/20 07:00 Resp 32 H 09/28/20 07:00 BP 114/56 09/28/20 02:00 Pulse Ox 92 L 09/28/20 07:00 Intake & Output 09/27/20 09/28/20 09/28/20 18:59 06:59 18:59 Intake Total 912.208 994.243 38 Output Total 1335 1115 60 Balance -422.792 -120.757 -22 Weight 99.3 kg Intake: IV 169 137 13 0.9 NS 130 110 10 Pressure bag 39 27 3 Intake, IV Titration 363.208 522.243 Amount fentaNYL (PF). 1,000 mcg 191.938 185.493 In Sodium Chloride 0.9% 80 ml @ Per Protocol IV . Q0M SP[facility]ER Rx#:[id number] propofoL 1,000 mg In 171.270 336.75 Empty Bag 1 bag @ Titrate IV .Q0M SPENSER Rx#: [id number] Tube Feeding 320 275 25 Other 60 60 Output: Urine 1335 1115 60 Other: Voiding Method Indwelling Catheter Indwelling Catheter ABP, PAP, CO, CI - Last Documented Arterial Blood Pressure 144/56 - Labs CBC & Chem 7: 09/28/20 05:05 09/28/20 05:05 Labs: Abnormal Lab Results - Last 24 Hours (Table) 09/27/20 09/27/20 09/27/20 Range/Units 04:30 11:59 13:19 WBC (3.8-10.6) k/uL RBC (4.30-5.90) m/uL Hgb (13.0-17.5) gm/dL Hct (39.0-53.0) % RDW (11.5-15.5) % Neutrophils # (1.3-7.7) k/uL Lymphocytes # (1.0-4.8) k/uL ABG pCO2 (35-45) mmHg ABG HCO3 (21-25) mmol/L ABG Total CO2 (19-24) mmol/L Chloride 118 H (98-107) mmol/L Carbon Dioxide (22-30) mmol/L BUN 42 H (9-20) mg/dL Glucose 137 H (74-99) mg/dL POC Glucose (mg/dL) 148 H 173 H (75-99) mg/dL Calcium 6.2 L* (8.4-10.2) mg/dL 09/27/20 09/27/20 09/28/20 Range/Units 18:06 23:29 05:05 WBC 15.5 H (3.8-10.6) k/uL RBC 2.93 L (4.30-5.90) m/uL Hgb 8.8 L (13.0-17.5) gm/dL Hct 28.3 L (39.0-53.0) % RDW 16.6 H (11.5-15.5) % Neutrophils # 14.3 H (1.3-7.7) k/uL Lymphocytes # 0.3 L (1.0-4.8) k/uL ABG pCO2 (35-45) mmHg ABG HCO3 (21-25) mmol/L ABG Total CO2 (19-24) mmol/L Chloride (98-107) mmol/L Carbon Dioxide (22-30) mmol/L BUN (9-20) mg/dL Glucose (74-99) mg/dL POC Glucose (mg/dL) 163 H 189 H (75-99) mg/dL Calcium (8.4-10.2) mg/dL 09/28/20 09/28/20 09/28/20 Range/Units 05:05 05:09 05:22 WBC (3.8-10.6) k/uL RBC (4.30-5.90) m/uL Hgb (13.0-17.5) gm/dL Hct (39.0-53.0) % RDW (11.5-15.5) % Neutrophils # (1.3-7.7) k/uL Lymphocytes # (1.0-4.8) k/uL ABG pCO2 52 H (35-45) mmHg ABG HCO3 33 H (21-25) mmol/L ABG Total CO2 34 H (19-24) mmol/L Chloride 108 H (98-107) mmol/L Carbon Dioxide 33 H (22-30) mmol/L BUN 51 H (9-20) mg/dL Glucose 185 H (74-99) mg/dL POC Glucose (mg/dL) 199 H (75-99) mg/dL Calcium 8.2 L (8.4-10.2) mg/dL
[2020-09-28 23:39] LABS: Glucose,Whole Blood 177 mg/dL (75-99)
[2020-09-29] MEDS: CISATRACURIUM 200 MG in SODIUM CHLORIDE 0.9% 180 ML IV SCH (02:50)
[2020-09-29] MEDS: fentaNYL (PF). 1,000 MCG in SODIUM CHLORIDE 0.9% 80 ML IV SCH ×2 (04:27→09:00)
[2020-09-29 04:56] LABS: ABG Base Excess 6.7 mmol/L; ABG HCO3 32 mmol/L (21-25); ABG Oxygen Saturation 92.3 % (94-97); ABG PCO2 56 mmHg (35-45); ABG PH 7.37 (7.35-7.45); ABG PO2 64 mmHg (83-108); ABG TCO2 34 mmol/L (19-24); Allen Test Performed? Yes
[2020-09-29 05:06] LABS: Glucose,Whole Blood 187 mg/dL (75-99)
[2020-09-29 05:33] LABS: Anisocytosis Slight; Basophils # (A) 0.2 k/uL (0-0.2); Basophils % (A) 1 %; Eosinophils % (A) 0 %; HCT 33.1 % (39.0-53.0); Hypochromasia Slight; Lymphocytes # (A) 0.2 k/uL (1.0-4.8); Lymphocytes % (A) 1 %; MCH 31.7 pg (25.0-35.0); MCHC 33.1 g/dL (31.0-37.0); MCV 95.7 fL (80.0-100.0); Macrocytosis Slight; Mean Platelet Volume 8.9; Monocytes # (A) 1.2 k/uL (0-1.0); Monocytes % (A) 5 %; Neutrophils # (A) 22.5 k/uL (1.3-7.7); Neutrophils % (A) 93 %; Platelet Count 181 k/uL (150-450); RBC 3.46 m/uL (4.30-5.90); RDW 16.5 % (11.5-15.5); WBC 24.2 k/uL (3.8-10.6)
[2020-09-29] MEDS: INSULIN ASPART (NovoLOG) 100 UNIT/ML VIAL SQ SCH ×3 (05:36→18:30)
[2020-09-29 05:59] LABS: African American GFR (CKD) >90 (>60 ml/min/1.73 sqM); Anion Gap 4 mmol/L; Blood Urea Nitrogen 49 mg/dL (9-20); Calcium 8.5 mg/dL (8.4-10.2); Carbon Dioxide 32 mmol/L (22-30); Chloride 109 mmol/L (98-107); Glucose 192 mg/dL (74-99); Non-African American GFR(CKD) >90 (>60 ml/min/1.73 sqM); Potassium 4.6 mmol/L (3.5-5.1); Sodium 145 mmol/L (137-145)
--- NOTE | 2020-09-29 06:12 | P.PN ---
Subjective Progress Note Date: 09/28/20 08/30/2020 the patient is being seen in follow-up. The patient is an acute hypoxic respiratory failure secondary to COVID-19 limited pneumonia. The patient is post intubation mechanical ventilation as of 09/12/2020. The patient undergone tracheostomy and PEG tube insertion 09/22/2020. During the course of the treatment, the patient received a combination of steroids, convalescent plasma and Tocilizumab. The patient continues to be on IV Solu-Medrol 40 mg IV every 8 hours. The patient is also on Lovenox 40 mg subcu to 24 hours. The LDH level from 09/27/2000 was 1528 and the patient's CRP level was 13.5. Renal function stable. The patient remains in intensive care unit and the patient is ventilator dependent. The patient remains on mechanical ventilator on assist control mode rate of 32 with a tidal volume of 420, fio2 50% with a PEEP of 13. The peak airway pressure is around 37. Static pressures around 33. He does have a foul-smelling odor from his mouth. He has a Bivona tracheostomy tube #7. Patient is sedated with propofol running at 40 mcg/kg per minute and fentanyl at 1.5 mg/kg/h. IV fluids are running at KVO and the patient is receiving enteral feeding for nutritional support utilizing Nepro 25 mL every 24 hours if the patient is also on Cleviprex for blood pressure control and he is off the medication. Chest x-ray showing but the pulmonary infiltrates involving the mid and lower lobes bilaterally quite dense and lower lobes. Patient's tracheostomy tube is in a good location. Hemodynamically stable on no pressors. Attempts to wean him off the sedation has failed and the patient became tachycardic and he has required Cleviprex on and off. Nevertheless, Cleviprex is made in become tachycardic. Objective - Vital Signs Vital signs: Vital Signs Temp 100.0 F H 09/28/20 12:00 Pulse 54 L 09/28/20 18:00 Resp 23 09/28/20 18:00 BP 116/66 09/28/20 18:00 Pulse Ox 92 L 09/28/20 18:00 Intake & Output 09/27/20 09/28/20 09/28/20 18:59 06:59 18:59 Intake Total 912.208 994.243 848.783 Output Total 1335 1115 995 Balance -422.792 -120.757 -146.217 Weight 99.3 kg Intake: IV 169 137 143 0.9 NS 130 110 110 Pressure bag 39 27 33 Intake, IV Titration 363.208 522.243 370.783 Amount Clevidipine Butyrate 25 30.666 mg In Empty Bag 1 bag @ 1 MG/HR 2 mls/hr IV .Q24H [facility] Rx#:[id number] fentaNYL (PF). 1,000 mcg 191.938 185.493 100 In Sodium Chloride 0.9% 80 ml @ Per Protocol IV . Q0M [facility] Rx#:[id number] propofoL 1,000 mg In 171.270 336.75 240.117 Empty Bag 1 bag @ Titrate IV .Q0M [facility] Rx#: [id number] Tube Feeding 320 275 250 Other 60 60 85 Output: Urine 1335 1115 995 Other: Voiding Method Indwelling Catheter Indwelling Catheter ABP, PAP, CO, CI - Last Documented Arterial Blood Pressure 174/68 - Exam GENERAL EXAM: Intubated, sedated 54-year-old gentleman, on mechanical ventilator current FiO2 50%, comfortable in no acute distress. The patient has a Bivona tracheostomy tube in place and is sedated. HEAD: Normocephalic. EYES: Sluggish reaction of pupils, equal size. NOSE: Clear with pink turbinates. THROAT: No erythema or exudates. NECK: No masses, no JVD. CHEST: No chest wall deformity. LUNGS: Equal air entry with crackles in the bilateral posterior bases. CVS: S1 and S2 normal with no audible murmur, regular rhythm. ABDOMEN: No hepatosplenomegaly, normal bowel sounds, no guarding or rigidity. The PEG tube is in a good location. SPINE: No scoliosis or deformity SKIN: No rashes CENTRAL NERVOUS SYSTEM: No focal deficits, tone is normal in all 4 extremities. EXTREMITIES: There is no peripheral edema. No clubbing, no cyanosis. Peripheral pulses are intact. - Labs CBC & Chem 7: 09/29/20 04:58 09/28/20 05:05 Labs: Abnormal Lab Results - Last 24 Hours (Table) 09/27/20 09/28/20 09/28/20 Range/Units 23:29 05:05 05:05 WBC 15.5 H (3.8-10.6) k/uL RBC 2.93 L (4.30-5.90) m/uL Hgb 8.8 L (13.0-17.5) gm/dL Hct 28.3 L (39.0-53.0) % RDW 16.6 H (11.5-15.5) % Neutrophils # 14.3 H (1.3-7.7) k/uL Lymphocytes # 0.3 L (1.0-4.8) k/uL ABG pCO2 (35-45) mmHg ABG HCO3 (21-25) mmol/L ABG Total CO2 (19-24) mmol/L Chloride 108 H (98-107) mmol/L Carbon Dioxide 33 H (22-30) mmol/L BUN 51 H (9-20) mg/dL Glucose 185 H (74-99) mg/dL POC Glucose (mg/dL) 189 H (75-99) mg/dL Calcium 8.2 L (8.4-10.2) mg/dL 09/28/20 09/28/20 09/28/20 Range/Units 05:09 05:22 11:55 WBC (3.8-10.6) k/uL RBC (4.30-5.90) m/uL Hgb (13.0-17.5) gm/dL Hct (39.0-53.0) % RDW (11.5-15.5) % Neutrophils # (1.3-7.7) k/uL Lymphocytes # (1.0-4.8) k/uL ABG pCO2 52 H (35-45) mmHg ABG HCO3 33 H (21-25) mmol/L ABG Total CO2 34 H (19-24) mmol/L Chloride (98-107) mmol/L Carbon Dioxide (22-30) mmol/L BUN (9-20) mg/dL Glucose (74-99) mg/dL POC Glucose (mg/dL) 199 H 179 H (75-99) mg/dL Calcium (8.4-10.2) mg/dL 09/28/20 Range/Units 18:08 WBC (3.8-10.6) k/uL RBC (4.30-5.90) m/uL Hgb (13.0-17.5) gm/dL Hct (39.0-53.0) % RDW (11.5-15.5) % Neutrophils # (1.3-7.7) k/uL Lymphocytes # (1.0-4.8) k/uL ABG pCO2 (35-45) mmHg ABG HCO3 (21-25) mmol/L ABG Total CO2 (19-24) mmol/L Chloride (98-107) mmol/L Carbon Dioxide (22-30) mmol/L BUN (9-20) mg/dL Glucose (74-99) mg/dL POC Glucose (mg/dL) 169 H (75-99) mg/dL Calcium (8.4-10.2) mg/dL Assessment and Plan Plan: 1 Acute hypoxemic respiratory failure secondary to COVID 19 pneumonitis. Required intubation on 09/12/2020. Had undergone tracheostomy and PEG tube placement on 09/22/2020. Did receive tocilizumab and convalescent plasma, remains currently on IV Solu-Medrol. The patient had diffuse breath and pulmonary infiltrates most on the lung bases bilaterally. PEEP currently is down to 13. Remains sedated on propofol and fentanyl. Unable to come of the sedation because of a hypertensive autonomic reaction. The patient has a #7 Biv saqib tracheostomy tube in place. 2 History of hypertension. 3 Former tobacco use. 4 Mildly elevated troponins, without chest pain. 5 enteral feeding for nutritional support through a PEG tube. 6 No computed tomography scan evidence of pulmonary embolism. 7 foul smelling odor from his mouth Plan: The patient will be given a sedation holiday Check pro calcitonin level check sputum Gram stain and culture May consider CAT scan of the neck and the order continues Sedation holiday Use labetalol drip for blood pressure control should the patient developed an autonomic reaction and hypertensive reaction Chest x-ray, ABGs and labs reviewed Continued on IV Solu-Medrol, Lovenox, vitamin supplements Repeat chest x-ray, inflammatory markers in the a.m. We will continue to follow critically care evaluation, more than 30 minutes. Time with Patient: Greater than 30
[2020-09-29 06:20] LABS: C Reactive Protein 14.9 mg/dL (<1.0); LDH 2371 U/L (313-618)
[2020-09-29] MEDS: LABETALOL 200 MG in SODIUM CHLORIDE 0.9% 160 ML IV SCH ×9 (06:51→23:40)
[2020-09-29] MEDS: ALBUTEROL HFA INHALER INHALATION SCH ×4 (07:15→18:48)
--- NOTE | 2020-09-29 07:16 | XR ---
EXAMINATION TYPE: XR chest 1V portable DATE OF EXAM: 09/29/2020 COMPARISON: 09/28/2020 HISTORY: Respiratory distress TECHNIQUE: Single frontal view of the chest is obtained. FINDINGS: Tracheostomy tube seen in the patchy bilateral infiltrates. Left-sided PICC line noted. No pneumothorax. Tiny left pleural effusion suggested. Heart size stable. IMPRESSION: Bilateral patchy infiltrate stable.
--- NOTE | 2020-09-29 07:35 | P.PN ---
Subjective Progress Note Date: 09/29/20 08/30/2020 the patient is being seen in follow-up. The patient is an acute hypoxic respiratory failure secondary to COVID-19 limited pneumonia. The patient is post intubation mechanical ventilation as of 09/12/2020. The patient undergone tracheostomy and PEG tube insertion 09/22/2020. During the course of the treatment, the patient received a combination of steroids, convalescent plasma and Tocilizumab. The patient continues to be on IV Solu-Medrol 40 mg IV every 8 hours. The patient is also on Lovenox 40 mg subcu to 24 hours. The LDH level from 09/27/2000 was 1528 and the patient's CRP level was 13.5. Renal function stable. The patient remains in intensive care unit and the patient is ventilator dependent. The patient remains on mechanical ventilator on assist control mode rate of 32 with a tidal volume of 420, fio2 50% with a PEEP of 13. The peak airway pressure is around 37. Static pressures around 33. He does have a foul-smelling odor from his mouth. He has a Bivona tracheostomy tube #7. Patient is sedated with propofol running at 40 mcg/kg per minute and fentanyl at 1.5 mg/kg/h. IV fluids are running at KVO and the patient is receiving enteral feeding for nutritional support utilizing Nepro 25 mL every 24 hours if the patient is also on Cleviprex for blood pressure control and he is off the medication. Chest x-ray showing but the pulmonary infiltrates involving the mid and lower lobes bilaterally quite dense and lower lobes. Patient's tracheostomy tube is in a good location. Hemodynamically stable on no pressors. Attempts to wean him off the sedation has failed and the patient became tachycardic and he has required Cleviprex on and off. Nevertheless, Cleviprex is made in become tachycardic. Objective - Vital Signs Vital signs: Vital Signs Temp 99.0 F 09/29/20 00:00 Pulse 74 09/29/20 07:00 Resp 32 H 09/29/20 07:00 BP 203/100 09/29/20 07:00 Pulse Ox 90 L 09/29/20 07:00 Intake & Output 09/28/20 09/29/20 09/29/20 18:59 06:59 18:59 Intake Total 933.065 958.439 38 Output Total 1120 1025 150 Balance -186.935 -66.561 -112 Weight 101.5 kg Intake: IV 169 153 13 0.9 NS 130 120 10 Pressure bag 39 33 3 Intake, IV Titration 379.065 445.439 Amount Clevidipine Butyrate 25 36.466 mg In Empty Bag 1 bag @ 1 MG/HR 2 mls/hr IV .Q24H [facility] Rx#:[id number] fentaNYL (PF). 1,000 mcg 100 195.634 In Sodium Chloride 0.9% 80 ml @ Per Protocol IV . Q0M [facility] Rx#:[id number] propofoL 1,000 mg In 242.599 249.805 Empty Bag 1 bag @ Titrate IV .Q0M [facility] Rx#: [id number] Tube Feeding 300 270 25 Other 85 90 Output: Urine 1120 1025 150 Other: Voiding Method Indwelling Catheter Indwelling Catheter ABP, PAP, CO, CI - Last Documented Arterial Blood Pressure 174/68 - Exam GENERAL EXAM: Intubated, sedated 54-year-old gentleman, on mechanical ventilator current FiO2 50%, comfortable in no acute distress. The patient has a Bivona tracheostomy tube in place and is sedated. HEAD: Normocephalic. EYES: Sluggish reaction of pupils, equal size. NOSE: Clear with pink turbinates. THROAT: No erythema or exudates. NECK: No masses, no JVD. CHEST: No chest wall deformity. LUNGS: Equal air entry with crackles in the bilateral posterior bases. CVS: S1 and S2 normal with no audible murmur, regular rhythm. ABDOMEN: No hepatosplenomegaly, normal bowel sounds, no guarding or rigidity. The PEG tube is in a good location. SPINE: No scoliosis or deformity SKIN: No rashes CENTRAL NERVOUS SYSTEM: No focal deficits, tone is normal in all 4 extremities. EXTREMITIES: There is no peripheral edema. No clubbing, no cyanosis. Peripheral pulses are intact. - Labs CBC & Chem 7: 09/29/20 04:58 09/29/20 04:58 Labs: Abnormal Lab Results - Last 24 Hours (Table) 09/28/20 09/28/20 09/28/20 Range/Units 11:55 18:08 23:37 WBC (3.8-10.6) k/uL RBC (4.30-5.90) m/uL Hgb (13.0-17.5) gm/dL Hct (39.0-53.0) % RDW (11.5-15.5) % Neutrophils # (1.3-7.7) k/uL Lymphocytes # (1.0-4.8) k/uL Monocytes # (0-1.0) k/uL D-Dimer (<0.60) mg/L FEU ABG pCO2 (35-45) mmHg ABG pO2 (83-108) mmHg ABG HCO3 (21-25) mmol/L ABG Total CO2 (19-24) mmol/L ABG O2 Saturation (94-97) % Chloride (98-107) mmol/L Carbon Dioxide (22-30) mmol/L BUN (9-20) mg/dL Glucose (74-99) mg/dL POC Glucose (mg/dL) 179 H 169 H 177 H (75-99) mg/dL Lactate Dehydrogenase (313-618) U/L C-Reactive Protein (<1.0) mg/dL 09/29/20 09/29/20 09/29/20 Range/Units 04:53 04:58 04:58 WBC (3.8-10.6) k/uL RBC (4.30-5.90) m/uL Hgb (13.0-17.5) gm/dL Hct (39.0-53.0) % RDW (11.5-15.5) % Neutrophils # (1.3-7.7) k/uL Lymphocytes # (1.0-4.8) k/uL Monocytes # (0-1.0) k/uL D-Dimer 1.57 H (<0.60) mg/L FEU ABG pCO2 56 H (35-45) mmHg ABG pO2 64 L (83-108) mmHg ABG HCO3 32 H (21-25) mmol/L ABG Total CO2 34 H (19-24) mmol/L ABG O2 Saturation 92.3 L (94-97) % Chloride 109 H (98-107) mmol/L Carbon Dioxide 32 H (22-30) mmol/L BUN 49 H (9-20) mg/dL Glucose 192 H (74-99) mg/dL POC Glucose (mg/dL) (75-99) mg/dL Lactate Dehydrogenase 2371 H (313-618) U/L C-Reactive Protein 14.9 H (<1.0) mg/dL 09/29/20 09/29/20 Range/Units 04:58 05:03 WBC 24.2 H (3.8-10.6) k/uL RBC 3.46 L (4.30-5.90) m/uL Hgb 11.0 L (13.0-17.5) gm/dL Hct 33.1 L (39.0-53.0) % RDW 16.5 H (11.5-15.5) % Neutrophils # 22.5 H (1.3-7.7) k/uL Lymphocytes # 0.2 L (1.0-4.8) k/uL Monocytes # 1.2 H (0-1.0) k/uL D-Dimer (<0.60) mg/L FEU ABG pCO2 (35-45) mmHg ABG pO2 (83-108) mmHg ABG HCO3 (21-25) mmol/L ABG Total CO2 (19-24) mmol/L ABG O2 Saturation (94-97) % Chloride (98-107) mmol/L Carbon Dioxide (22-30) mmol/L BUN (9-20) mg/dL Glucose (74-99) mg/dL POC Glucose (mg/dL) 187 H (75-99) mg/dL Lactate Dehydrogenase (313-618) U/L C-Reactive Protein (<1.0) mg/dL Assessment and Plan Plan: 1 Acute hypoxemic respiratory failure secondary to COVID 19 pneumonitis. Required intubation on 09/12/2020. Had undergone tracheostomy and PEG tube placement on 09/22/2020. Did receive tocilizumab and convalescent plasma, remains currently on IV Solu-Medrol. The patient had diffuse breath and pulmonary infiltrates most on the lung bases bilaterally. PEEP currently is down to 13. Remains sedated on propofol and fentanyl. Unable to come of the sedation because of a hypertensive autonomic reaction. The patient has a #[address] Bivona [address]. 2 History of hypertension. 3 Former tobacco use. 4 Mildly elevated troponins, without chest pain. 5 enteral feeding for nutritional support through a PEG tube. 6 No computed tomography scan evidence of pulmonary embolism. 7 foul smelling odor from his mouth Plan: The patient will be given a sedation holiday Check pro calcitonin level check sputum Gram stain and culture May consider CAT scan of the neck and the order continues Sedation holiday Use labetalol drip for blood pressure control should the patient developed an autonomic reaction and hypertensive reaction Chest x-ray, ABGs and labs reviewed Continued on IV Solu-Medrol, Lovenox, vitamin supplements Repeat chest x-ray, inflammatory markers in the a.m. We will continue to follow critically care evaluation, more than 30 minutes. Time with Patient: Greater than 30
[2020-09-29] MEDS: ATORVASTATIN 80 MG TAB PO SCH (08:35)
[2020-09-29] MEDS: ASPIRIN 81 MG PO SCH (08:36)
[2020-09-29] MEDS: ZINC SULFATE 220 MG CAP PO SCH (08:36)
[2020-09-29] MEDS: CHOLECALCIFEROL 25 MCG (1000 IU) TABLET PO SCH (08:36)
[2020-09-29] MEDS: ASCORBIC ACID 500 MG TAB PO SCH ×2 (08:37→21:00)
[2020-09-29] MEDS: CHLORHEXIDINE GLUCONATE 15 ML CUP MUCOUS MEM SCH ×2 (08:37→21:00)
[2020-09-29] MEDS: ENOXAPARIN 40 MG/0.4 ML SYRINGE SQ SCH (08:37)
[2020-09-29] MEDS: amLODIPine 10 MG TAB PO SCH (08:37)
[2020-09-29] MEDS: methylPREDNISolone SOD SUCCI 40 MG/ML 1 ML VIAL IV SCH ×3 (08:42→23:48)
[2020-09-29] MEDS: FAMOTIDINE 20 MG TAB PO SCH ×2 (08:42→21:00)
[2020-09-29] MEDS: LACTULOSE 20 GM/30 ML CUP PO SCH ×4 (10:03→22:00)
[2020-09-29] MEDS: ARTIFICIAL TEARS-HYPROMELLOSE DROPS 15 ML BTL BOTH EYES SCH ×4 (10:03→23:51)
[2020-09-29] MEDS: METOPROLOL TARTRATE 12.5 MG TAB PO SCH ×2 (12:42→21:00)
[2020-09-29 12:43] LABS: Glucose,Whole Blood 168 mg/dL (75-99)
--- NOTE | 2020-09-29 13:51 | P.PN ---
Subjective Progress Note Date: 09/29/20 CHIEF COMPLAINT: COVID-19 pneumonia HISTORY OF PRESENT ILLNESS: Patient is in the ICU and is intubated. He is status post tracheostomy and PEG tube placement. Patient is tolerating tube feedings. No residual reported. Patient did have a temp 100 this morning. WBC 24.2. Per nursing patient did have a minimal amount of blood noted in his mouth. Patient undergoing sedation holiday today PHYSICAL EXAM: VITAL SIGNS: Reviewed. GENERAL: Well-developed in no acute distress. HEENT: Moist buccal mucosa. Head is atraumatic, normocephalic. Tracheostomy site clean dry and intact ABDOMEN: Soft. Nondistended. Nontender. PEG tube site clean dry and intact NEUROLOGIC: Intubated ASSESSMENT: 1. Acute hypoxic respiratory failure due to COVID-19 pneumonia with prolonged mechanical ventilation status post tracheostomy placement 2. Moderate protein calorie malnutrition status post PEG tube placement PLAN: -Continue tube feedings -Continue supportive care -Continue ICU management Physician Car Body Designer note has been reviewed by physician. Signing provider agrees with the documented findings, assessment, and plan of care. Objective - Vital Signs Vital signs: Vital Signs Temp 100.0 F H 09/29/20 08:00 Pulse 64 09/29/20 11:00 Resp 32 H 09/29/20 11:00 BP 137/72 09/29/20 11:00 Pulse Ox 91 L 09/29/20 11:00 Intake & Output 09/28/20 09/29/20 09/29/20 18:59 06:59 18:59 Intake Total 933.065 958.439 459.038 Output Total 1120 1025 340 Balance -186.935 -66.561 119.038 Weight 101.5 kg 101.5 kg Intake: IV 169 153 39 0.9 NS 130 120 30 Pressure bag 39 33 9 Intake, IV Titration 379.065 445.439 315.038 Amount Clevidipine Butyrate 25 36.466 mg In Empty Bag 1 bag @ 1 MG/HR 2 mls/hr IV .Q24H [facility] Rx#:[id number] Labetalol 200 mg In 200 Sodium Chloride 0.9% 160 ml @ 2 MG/MIN 120 mls/hr IV .Q1H40M [facility] Rx#: [id number] fentaNYL (PF). 1,000 mcg 100 195.634 115.038 In Sodium Chloride 0.9% 80 ml @ Per Protocol IV . Q0M [facility] Rx#:[id number] propofoL 1,000 mg In 242.599 249.805 Empty Bag 1 bag @ Titrate IV .Q0M [facility] Rx#: [id number] Tube Feeding 300 270 75 Other 85 90 30 Output: Urine 1120 1025 340 Other: Voiding Method Indwelling Catheter Indwelling Catheter ABP, PAP, CO, CI - Last Documented Arterial Blood Pressure 174/68 - Labs CBC & Chem 7: 09/29/20 04:58 09/29/20 04:58 Labs: Abnormal Lab Results - Last 24 Hours (Table) 09/28/20 09/28/20 09/29/20 Range/Units 18:08 23:37 04:53 WBC (3.8-10.6) k/uL RBC (4.30-5.90) m/uL Hgb (13.0-17.5) gm/dL Hct (39.0-53.0) % RDW (11.5-15.5) % Neutrophils # (1.3-7.7) k/uL Lymphocytes # (1.0-4.8) k/uL Monocytes # (0-1.0) k/uL D-Dimer (<0.60) mg/L FEU ABG pCO2 56 H (35-45) mmHg ABG pO2 64 L (83-108) mmHg ABG HCO3 32 H (21-25) mmol/L ABG Total CO2 34 H (19-24) mmol/L ABG O2 Saturation 92.3 L (94-97) % Chloride (98-107) mmol/L Carbon Dioxide (22-30) mmol/L BUN (9-20) mg/dL Glucose (74-99) mg/dL POC Glucose (mg/dL) 169 H 177 H (75-99) mg/dL Lactate Dehydrogenase (313-618) U/L C-Reactive Protein (<1.0) mg/dL Procalcitonin (0.02-0.09) ng/mL 09/29/20 09/29/20 09/29/20 Range/Units 04:58 04:58 04:58 WBC 24.2 H (3.8-10.6) k/uL RBC 3.46 L (4.30-5.90) m/uL Hgb 11.0 L (13.0-17.5) gm/dL Hct 33.1 L (39.0-53.0) % RDW 16.5 H (11.5-15.5) % Neutrophils # 22.5 H (1.3-7.7) k/uL Lymphocytes # 0.2 L (1.0-4.8) k/uL Monocytes # 1.2 H (0-1.0) k/uL D-Dimer 1.57 H (<0.60) mg/L FEU ABG pCO2 (35-45) mmHg ABG pO2 (83-108) mmHg ABG HCO3 (21-25) mmol/L ABG Total CO2 (19-24) mmol/L ABG O2 Saturation (94-97) % Chloride 109 H (98-107) mmol/L Carbon Dioxide 32 H (22-30) mmol/L BUN 49 H (9-20) mg/dL Glucose 192 H (74-99) mg/dL POC Glucose (mg/dL) (75-99) mg/dL Lactate Dehydrogenase 2371 H (313-618) U/L C-Reactive Protein 14.9 H (<1.0) mg/dL Procalcitonin (0.02-0.09) ng/mL 09/29/20 09/29/20 09/29/20 Range/Units 04:58 05:03 12:07 WBC (3.8-10.6) k/uL RBC (4.30-5.90) m/uL Hgb (13.0-17.5) gm/dL Hct (39.0-53.0) % RDW (11.5-15.5) % Neutrophils # (1.3-7.7) k/uL Lymphocytes # (1.0-4.8) k/uL Monocytes # (0-1.0) k/uL D-Dimer (<0.60) mg/L FEU ABG pCO2 (35-45) mmHg ABG pO2 (83-108) mmHg ABG HCO3 (21-25) mmol/L ABG Total CO2 (19-24) mmol/L ABG O2 Saturation (94-97) % Chloride (98-107) mmol/L Carbon Dioxide (22-30) mmol/L BUN (9-20) mg/dL Glucose (74-99) mg/dL POC Glucose (mg/dL) 187 H 168 H (75-99) mg/dL Lactate Dehydrogenase (313-618) U/L C-Reactive Protein (<1.0) mg/dL Procalcitonin 0.19 H (0.02-0.09) ng/mL
--- NOTE | 2020-09-29 14:29 | P.PN ---
Subjective Progress Note Date: 09/29/20 This is a 54-year-old male who was recently admitted with acute hypoxic respiratory failure secondary to COVID-19 pneumonia and is being closely monitored. Continues to remain on mechanical ventilation currently sedated. Patient has had prolonged hospitalization with unsuccessful attempts at weaning and surgery has been consulted for tracheostomy along with PEG tube placement. Patient was on D5 water for hypernatremia and will be discontinued. Tube feedings on hold for surgery today and will resume once PEG tube is okay for use. Per nursing staff patient has also been in the prone position since yesterday evening into this morning and tolerated. Amiodarone has also been discontinued as patient is currently bradycardic. Pulmonary international account executive following closely. Patient is maintained on sliding scale and will monitor closely once tube feedings have resumed. 09/23/2020 Patient is seen in follow-up continues to be closely monitored in the ICU maintained on mechanical vent via tracheostomy as he underwent trach and PEG tube placement yesterday with surgery. Tube feedings to resume via PEG tube this afternoon after clearance from surgery. Chest x-ray today shows bilateral multifocal and confluent opacities left greater than right consistent with COVID-19 again redemonstrated with no significant change from yesterday. Pulmonary also following. White blood count at 20.9, hemoglobin is 11.3, current sodium is 138 with a potassium of 5.2, and creatinine is 0.83. 09/24/2020 Patient continues to be intubated and sedated in the ICU status post tracheostomy and PEG tube placement. Tube feedings have been resumed and patient is tolerating. Chest x-ray today shows continued patchy airspace infiltrates although there is interval improvement noted. Pulmonary following closely. White blood count slightly elevated at 23.2 patient is maintained on IV Solu-Medrol every 6 hours. Sodium 143 with a potassium of 5.0 and current creatinine is 0.84. 09/25/2020 Patient continues to be in the ICU on mechanical ventilation intubated via tracheostomy and continued on sedation and is being closely monitored. PEEP being titrated down slowly and patient continues on Nimbex along with propofol and fentanyl. White blood count on a downward trend 17.2 with hemoglobin of 9.7, sodium is 144 with a potassium of 4.9 and current creatinine is 0.95. FiO2 remains at 50 and maintaining 87 and 90% oxygen saturation. Social work also following and discussion with family about possible LTAC placement. 09/26/2020 Patient is seen in follow-up continues to be closely monitored in the ICU. Patient is off of Nimbex since yesterday and tolerating. Patient continues to be sedated and pulmonary international account executive following closely and working on weaning FiO2 as tolerated. FiO2 has been decreased to 50 and PEEP continues at 17. Patient's calcium was low on this morning's labs at 4.9 and was given a dose of calcium gluconate. Patient labs this morning show sodium of 143 with a potassium of 3.5 and creatinine is 0.57, LDH is 1027, CRP is 8.7 and magnesium is 1.9. Continue with electrolyte replacement per protocol. His repeat potassium this afternoon as showing 6.0 may potentially be a hemolyzed sample and will redraw and monitor closely. Patient did receive that Braden supplementation from this morning's labs as it was 3.5. 09/27/2020 The patient remains on the mechanical ventilator. His vent settings include assist control mode, rate 32, tidal volume 420, FiO2 50%, and PEEP of 17. Arterial blood gases show pO2 61, pCO2 56, pH 7.38. The patient's currently on propofol at 35 mcg/kg/m, and fentanyl 1.5 mcg/kg per hour. The patient's getting saline at KVO, and tube feedings with Nepro at 25 mL an hour which is goal. Chest x-ray is stable. Shows bilateral diffuse infiltrates. White count 18.1, he will 9.7, hematocrit 30.2, platelet count 175,000. D-dimer is 1.27. Sodium 144, potassium 4.1, chlorides 118, CO2 27, BUN 42, creatinine 0.78. LDH is 1528, and C-reactive protein is 13.5. 09/28/2020 patient is seen in follow-up in the intensive care unit. HRemains intubated and on mechanical ventilator. He had undergone tracheostomy tube and PEG tube placements on 09/22/2020. He is sedated on propofol at 40 mcg/kg/m. Fentanyl at 1.5 mcg/mg per hour. 0.9 normal saline at KVO. He is being nourished with Nepro at 25 ML's per hour which is goal. Free water flushes at 30 MLS every 4 hours. He's had daily interruption of sedation. Once off sedation his blood pressure goes up to 200 systolic range. Today's chest x-ray reveals stable bilateral diffuse interstitial infiltrates. He has received 1 unit of convalescent plasma. Blood cultures reveal no growth. White count 15.5. Hemoglobin 8.8. Platelets 160. Sodium 142. Potassium 4.9. Creatinine 0.86. He has continued on Solu-Medrol, Lovenox, vitamin supplements. Prognosis remains guarded. 09/29/2020 Patient is seen in follow-up continues to be in the ICU intubated and sedated. Patient is off Nimbex with attempts at sedation holiday and having rebound blood pressure issues and placed on labetalol. Continues on IV Solu-Medrol along with vitamin and zinc supplements and Lovenox and will continue. FiO2 down to 50 and PEEP of 13. Pulmonary following closely. Patient continues with intermittent low-grade temps and elevated white count. D-dimer today is 1.57, sodium is 145, potassium is 4.6, current creatinine is 0.86. Inflammatory markers are elevated along with CRP and probe calcitonin. Review of systems: Unable to obtain as patient continues to be intubated and sedated Active Medications Acetaminophen (Acetaminophen Tab 325 Mg Tab) 650 mg PO Q6HR PRN PRN Reason: Fever and/ or Pain Last Admin: 09/16/20 11:48 Dose: 650 mg Documented by: Albuterol Sulfate (Albuterol Hfa Inhaler) 2 puff INHALATION RT-QID PRN PRN Reason: Shortness Of Breath Last Admin: 09/04/20 17:46 Dose: 2 puff Documented by: Albuterol Sulfate (Albuterol Hfa Inhaler) 2 puff INHALATION RT-QID [facility] Last Admin: 09/29/20 11:11 Dose: 2 puff Documented by: Amlodipine Besylate (Amlodipine 10 Mg Tab) 10 mg PO DAILY [facility] Last Admin: 09/29/20 08:37 Dose: 10 mg Documented by: Artificial Tears (Artificial Tears-Hypromellose Drops 15 Ml Btl) 2 drops BOTH EYES QID [facility] Last Admin: 09/29/20 14:01 Dose: Not Given Documented by: Ascorbic Acid (Ascorbic Acid 500 Mg Tab) 500 mg PO BID [facility] Last Admin: 09/29/20 08:37 Dose: 500 mg Documented by: Aspirin (Aspirin 81 Mg) 81 mg PO DAILY [facility] Last Admin: 09/29/20 08:36 Dose: 81 mg Documented by: Atorvastatin Calcium (Atorvastatin 80 Mg Tab) 80 mg PO DAILY [facility] Last Admin: 09/29/20 08:35 Dose: 80 mg Documented by: Chlorhexidine Gluconate (Chlorhexidine Gluconate 15 Ml Cup) 15 ml MUCOUS MEM BID [facility] Last Admin: 09/29/20 08:37 Dose: 15 ml Documented by: Cholecalciferol (Cholecalciferol 25 Mcg (1000 Iu) Tablet) 125 mcg PO DAILY [facility] Last Admin: 09/29/20 08:36 Dose: 125 mcg Documented by: Enoxaparin Sodium (Enoxaparin 40 Mg/0.4 Ml Syringe) 40 mg SQ DAILY [facility] Last Admin: 09/29/20 08:37 Dose: 40 mg Documented by: Famotidine (Famotidine 20 Mg Tab) 20 mg PO BID [facility] Last Admin: 09/29/20 08:42 Dose: 20 mg Documented by: Heparin Sodium (Porcine) (Heparin Sodium 1,000 Un/Ml (10ml Vl)) 0 unit IV PER PROTOCOL PRN; Protocol PRN Reason: Low PTT Last Admin: 09/03/20 17:35 Dose: 4,900 unit Documented by: Propofol 1,000 mg/ IV Solution 100 mls @ 0 mls/hr IV .Q0M [facility]; Protocol Last Titration: 09/29/20 06:01 Dose: 0 mcg/kg/min, 0 mls/hr Documented by: Cisatracurium Besylate 200 mg/ (Sodium Chloride) 200 mls @ 5.61 mls/hr IV .Q24H [facility]; Protocol Last Admin: 09/29/20 02:50 Dose: Not Given Documented by: Fentanyl Citrate 1,000 mcg/ (Sodium Chloride) 100 mls @ 0 mls/hr IV .Q0M [facility]; Protocol Last Titration: 09/29/20 12:45 Dose: 1 mcg/kg/hr, 9.24 mls/hr Documented by: Clevidipine 25 mg/ IV Solution 50 mls @ 2 mls/hr IV .Q24H [facility]; Protocol Last Titration: 09/28/20 15:30 Dose: 0 mg/hr, 0 mls/hr Documented by: Labetalol HCl 200 mg/ Sodium (Chloride) 200 mls @ 120 mls/hr IV .Q1H40M [facility]; Protocol Last Admin: 09/29/20 13:59 Dose: 1 mg/min, 60 mls/hr Documented by: Insulin Aspart (Insulin Aspart (Novolog) 100 Unit/Ml Vial) 0 unit SQ Q6HR [facility]; Protocol Last Admin: 09/29/20 12:45 Dose: 3 unit Documented by: Lactulose (Lactulose 20 Gm/30 Ml Cup) 20 gm PO QID [facility] Last Admin: 09/29/20 13:01 Dose: Not Given Documented by: Methylprednisolone Sodium Succinate (Methylprednisolone Sod Succi 40 Mg/Ml 1 Ml Vial) 40 mg IV Q8HR [facility] Last Admin: 09/29/20 08:42 Dose: 40 mg Documented by: Metoprolol Tartrate (Metoprolol Tartrate 12.5 Mg Tab) 12.5 mg PO BID [facility] Last Admin: 09/29/20 12:42 Dose: Not Given Documented by: Nitroglycerin (Nitroglycerin Sl Tabs 0.4 Mg Tab) 0.4 mg SUBLINGUAL Q5M PRN PRN Reason: Chest Pain Last Admin: 09/07/20 03:35 Dose: 0.4 mg Documented by: Promethazine HCl (Promethazine Hcl 6.25 Mg/5 Ml Cup) 12.5 mg PO QID PRN PRN Reason: Cough Last Admin: 09/06/20 02:07 Dose: 12.5 mg Documented by: Zinc Sulfate (Zinc Sulfate 220 Mg Cap) 220 mg PO DAILY [facility] Last Admin: 09/29/20 08:36 Dose: 220 mg Documented by: Objective - Vital Signs Vital signs: Vital Signs Temp 99.0 F 09/29/20 00:00 Pulse 74 09/29/20 07:00 Resp 32 H 09/29/20 07:00 BP 203/100 09/29/20 07:00 Pulse Ox 90 L 09/29/20 07:00 Intake & Output 09/28/20 09/29/20 09/29/20 18:59 06:59 18:59 Intake Total 933.065 958.439 38 Output Total 1120 1025 150 Balance -186.935 -66.561 -112 Weight 101.5 kg Intake: IV 169 153 13 0.9 NS 130 120 10 Pressure bag 39 33 3 Intake, IV Titration 379.065 445.439 Amount Clevidipine Butyrate 25 36.466 mg In Empty Bag 1 bag @ 1 MG/HR 2 mls/hr IV .Q24H [facility] Rx#:[id number] fentaNYL (PF). 1,000 mcg 100 195.634 In Sodium Chloride 0.9% 80 ml @ Per Protocol IV . Q0M [facility] Rx#:[id number] propofoL 1,000 mg In 242.599 249.805 Empty Bag 1 bag @ Titrate IV .Q0M [facility] Rx#: [id number] Tube Feeding 300 270 25 Other 85 90 Output: Urine 1120 1025 150 Other: Voiding Method Indwelling Catheter Indwelling Catheter ABP, PAP, CO, CI - Last Documented Arterial Blood Pressure 174/68 - Exam Gen: This is a 54-year-old male currently intubated and sedated. FiO2 decreased to 50, PEEP of 13 HEENT: Head is atraumatic, normocephalic. Pupils equal, round. Sclerae is anicteric. NECK: Supple. No JVD. No lymphadenopathy. No thyromegaly. Tracheostomy noted LUNGS: diminished breath sounds bilaterally with some scattered rhonchi and crackles noted. Tachypneic. No intercostal retractions. HEART: S1, S2 are muffled ABDOMEN: Soft. Obese. Bowel sounds are present. No masses. No tenderness. PEG tube noted EXTREMITIES: No pedal edema. No calf tenderness. NEUROLOGICAL: Unable to completely assess as patient is intubated and sedated on paralytics - Labs CBC & Chem 7: 09/29/20 04:58 09/29/20 04:58 Labs: Abnormal Lab Results - Last 24 Hours (Table) 09/28/20 09/28/20 09/28/20 Range/Units 11:55 18:08 23:37 WBC (3.8-10.6) k/uL RBC (4.30-5.90) m/uL Hgb (13.0-17.5) gm/dL Hct (39.0-53.0) % RDW (11.5-15.5) % Neutrophils # (1.3-7.7) k/uL Lymphocytes # (1.0-4.8) k/uL Monocytes # (0-1.0) k/uL D-Dimer (<0.60) mg/L FEU ABG pCO2 (35-45) mmHg ABG pO2 (83-108) mmHg ABG HCO3 (21-25) mmol/L ABG Total CO2 (19-24) mmol/L ABG O2 Saturation (94-97) % Chloride (98-107) mmol/L Carbon Dioxide (22-30) mmol/L BUN (9-20) mg/dL Glucose (74-99) mg/dL POC Glucose (mg/dL) 179 H 169 H 177 H (75-99) mg/dL Lactate Dehydrogenase (313-618) U/L C-Reactive Protein (<1.0) mg/dL 09/29/20 09/29/20 09/29/20 Range/Units 04:53 04:58 04:58 WBC (3.8-10.6) k/uL RBC (4.30-5.90) m/uL Hgb (13.0-17.5) gm/dL Hct (39.0-53.0) % RDW (11.5-15.5) % Neutrophils # (1.3-7.7) k/uL Lymphocytes # (1.0-4.8) k/uL Monocytes # (0-1.0) k/uL D-Dimer 1.57 H (<0.60) mg/L FEU ABG pCO2 56 H (35-45) mmHg ABG pO2 64 L (83-108) mmHg ABG HCO3 32 H (21-25) mmol/L ABG Total CO2 34 H (19-24) mmol/L ABG O2 Saturation 92.3 L (94-97) % Chloride 109 H (98-107) mmol/L Carbon Dioxide 32 H (22-30) mmol/L BUN 49 H (9-20) mg/dL Glucose 192 H (74-99) mg/dL POC Glucose (mg/dL) (75-99) mg/dL Lactate Dehydrogenase 2371 H (313-618) U/L C-Reactive Protein 14.9 H (<1.0) mg/dL 09/29/20 09/29/20 Range/Units 04:58 05:03 WBC 24.2 H (3.8-10.6) k/uL RBC 3.46 L (4.30-5.90) m/uL Hgb 11.0 L (13.0-17.5) gm/dL Hct 33.1 L (39.0-53.0) % RDW 16.5 H (11.5-15.5) % Neutrophils # 22.5 H (1.3-7.7) k/uL Lymphocytes # 0.2 L (1.0-4.8) k/uL Monocytes # 1.2 H (0-1.0) k/uL D-Dimer (<0.60) mg/L FEU ABG pCO2 (35-45) mmHg ABG pO2 (83-108) mmHg ABG HCO3 (21-25) mmol/L ABG Total CO2 (19-24) mmol/L ABG O2 Saturation (94-97) % Chloride (98-107) mmol/L Carbon Dioxide (22-30) mmol/L BUN (9-20) mg/dL Glucose (74-99) mg/dL POC Glucose (mg/dL) 187 H (75-99) mg/dL Lactate Dehydrogenase (313-618) U/L C-Reactive Protein (<1.0) mg/dL Assessment and Plan Assessment: -Acute hypoxic respiratory failure secondary to Covid 19 pneumonia, extensive interstitial pneumonia on mechanical ventilation -Status post PEG tube and tracheostomy placement -Acute lactic acidosis -Hypocalcemia -Atrial fibrillation with fast ventricular rate -Change in mental status, acute metabolic encephalopathy -Elevated random blood glucose -Hypernatremia -Hypertension -Elevated troponin possibly secondary to type II acute myocardial infarction secondary to hypoxemia and COVID-19 -History of gastroesophageal reflux disease -GI prophylaxis with Pepcid -DVT prophylaxis with Lovenox -Full code Recommendations and discussion: Recommend to continue with current medications and continue to monitor in the ICU as patient continues to be on mechanical vent intubated and sedated. Atte mpts at sedation holiday. Patient having rebound hypertension and placed on labetalol drip. Continued on IV Solu-Medrol along with Lovenox and vitamin and zinc supplements. Patient currently tracheostomy dependent. FiO2 is at 50 and a PEEP of 13. Weaning as tolerated per international account executive. Continue with Accu-Cheks every 6 and sliding scale as needed. Pattern Cleaner following closely. Pulmonary following closely. Due to multiple complex medical issues, prognosis remains extremely guarded. Chest x-ray this morning is stable with continued bilateral patchy infiltrates. Case management and social work following and will be working on LTAC placement at [facility] [place] once stabilized.
[2020-09-29 17:44] LABS: Glucose,Whole Blood 191 mg/dL (75-99)
[2020-09-30 00:53] LABS: Glucose,Whole Blood 181 mg/dL (75-99)
[2020-09-30] MEDS: LABETALOL 200 MG in SODIUM CHLORIDE 0.9% 160 ML IV SCH ×9 (01:23→15:51)
[2020-09-30] MEDS: INSULIN ASPART (NovoLOG) 100 UNIT/ML VIAL SQ SCH ×5 (01:25→23:49)
--- NOTE | 2020-09-30 04:21 | XR ---
EXAM: XR Chest, 1 View CLINICAL HISTORY: ITS.REASON XR Reason: covid TECHNIQUE: Frontal view of the chest. COMPARISON: Chest x-ray dated 09/29/2020 FINDINGS: Lungs: Diffuse airspace opacities likely representing an infectious process. Pleural space: Unremarkable. Heart: Unremarkable. Mediastinum: Unremarkable. Bones/joints: Unremarkable. Tubes, lines and devices: Left upper extremity PICC with tip in the distal innominate vein. Tracheostomy cannula within the thoracic inlet. IMPRESSION: 1. Diffuse airspace opacities likely representing an infectious process. 2. Left upper extremity PICC with tip in the distal innominate vein. 3. Tracheostomy cannula within the thoracic inlet.
[2020-09-30 04:50] LABS: Anisocytosis Slight; Basophils # (A) 0.1 k/uL (0-0.2); Basophils % (A) 1 %; Eosinophils % (A) 0 %; HCT 31.6 % (39.0-53.0); HGB 10.3 gm/dL (13.0-17.5); Hypochromasia Slight; Lymphocytes # (A) 0.3 k/uL (1.0-4.8); Lymphocytes % (A) 1 %; MCH 31.4 pg (25.0-35.0); MCHC 32.7 g/dL (31.0-37.0); MCV 96.1 fL (80.0-100.0); Macrocytosis Slight; Mean Platelet Volume 9.1; Monocytes # (A) 1.1 k/uL (0-1.0); Monocytes % (A) 5 %; Neutrophils # (A) 20.1 k/uL (1.3-7.7); Neutrophils % (A) 93 %; Platelet Count 152 k/uL (150-450); RBC 3.28 m/uL (4.30-5.90); RDW 16.5 % (11.5-15.5); WBC 21.7 k/uL (3.8-10.6)
[2020-09-30 05:04] LABS: African American GFR (CKD) >90 (>60 ml/min/1.73 sqM); Anion Gap 0 mmol/L; Blood Urea Nitrogen 49 mg/dL (9-20); Calcium 8.6 mg/dL (8.4-10.2); Carbon Dioxide 33 mmol/L (22-30); Chloride 114 mmol/L (98-107); Glucose 140 mg/dL (74-99); Non-African American GFR(CKD) >90 (>60 ml/min/1.73 sqM); Potassium 4.5 mmol/L (3.5-5.1); Sodium 147 mmol/L (137-145)
[2020-09-30 05:39] LABS: ABG HCO3 32 mmol/L (21-25); ABG Oxygen Saturation 91.5 % (94-97); ABG PCO2 57 mmHg (35-45); ABG PH 7.36 (7.35-7.45); ABG PO2 62 mmHg (83-108); ABG TCO2 34 mmol/L (19-24); Allen Test Performed? Yes
--- NOTE | 2020-09-30 06:30 | P.PN ---
Subjective Progress Note Date: 09/30/20 09/29/2020 the patient is being seen in follow-up. The patient is an acute hypoxic respiratory failure secondary to COVID-19 limited pneumonia. The patient is post intubation mechanical ventilation as of 09/12/2020. The patient undergone tracheostomy and PEG tube insertion 09/22/2020. During the course of the treatment, the patient received a combination of steroids, convalescent plasma and Tocilizumab. The patient continues to be on IV Solu-Medrol 40 mg IV every 8 hours. The patient is also on Lovenox 40 mg subcu to 24 hours. The LDH level from 09/27/2000 was 1528 and the patient's CRP level was 13.5. Renal function stable. The patient remains in intensive care unit and the patient is ventilator dependent. The patient remains on mechanical ventilator on assist control mode rate of 32 with a tidal volume of 420, fio2 50% with a PEEP of 13. The peak airway pressure is around 37. Static pressures around 33. He does have a foul-smelling odor from his mouth. He has a Bivona tracheostomy tube #7. Patient is sedated with propofol running at 40 mcg/kg per minute and fentanyl at 1.5 mg/kg/h. IV fluids are running at KVO and the patient is receiving enteral feeding for nutritional support utilizing Nepro 25 mL every 24 hours if the patient is also on Cleviprex for blood pressure control and he is off the medication. Chest x-ray showing but the pulmonary infiltrates involving the mid and lower lobes bilaterally quite dense and lower lobes. Patient's tracheostomy tube is in a good location. Hemodynamically stable on no pressors. Attempts to wean him off the sedation has failed and the patient became tachycardic and he has required Cleviprex on and off. Nevertheless, Cleviprex is made in become tachycardic. On 09/30/2020 by the patient is completely of sedation for the past 24 hours. Note that prior attempts to get this patient off sedation at failure the patient was developing an acute hypertensive reaction and ultimately I was able to get him off the propofol and fentanyl yesterday and he does have labetalol as a backup which was never used as the patient remained normotensive during the process. His been off sedation for at least 16 hours. Neurologically, significantly impaired, completely unresponsive, barely any cough or gag and limited particularly response. Does not respond to any verbal or painful stimulation. He remains on a mechanical ventilator. This morning he is an assist-control mode at the rate of 32 with a tidal volume of 420 and FiO2 of 50% with a PEEP of 13. The blood gases from today is still pending. Meanwhile, the chest x-ray shows essentially stable findings with a Bivona tracheostomy tube in place and there is still persistent but the pulmonary infiltrates, essentially unchanged compared to yesterday. Another issue is the halitosis as the patient has a bad odor coming from his mouth. There is some purulent secretions around the tracheostomy tube that was noted at the same time there is some bleeding this coming from his mouth and the patient has required frequent suctioning. I noted the canister and that is probably around 200 mL of bloody material collected since yesterday. His white cell count is at 21. The patient is on IV cefepime. Focused on is obtained from yesterday was 0.19. Otherwise, rest of the electrodes are showing a component of hyperchloremic hypernatremia. Sodium is at 147. Creatinine is 0.9. LDH from yesterday was 2371. The patient currently is IV Solu-Medrol 40 mg every 8 hours. The patient is also on Lovenox 40 mg subcu to 24 hours. As mentioned, his been off sedation and off paralytics. Enteral feeding for nutritional support is through Nepro via PEG tube at the rate of 18 mL an hour Objective - Vital Signs Vital signs: Vital Signs Temp 98.8 F 09/30/20 04:00 Pulse 77 09/30/20 06:00 Resp 12 09/30/20 06:00 BP 138/83 09/30/20 06:00 Pulse Ox 90 L 09/30/20 06:00 Intake & Output 09/29/20 09/29/20 09/30/20 06:59 18:59 06:59 Intake Total 325.784 0195.038 394 Output Total 1025 1140 1030 Balance -66.561 72.038 -636 Weight 101.5 kg 101.5 kg 103.1 kg Intake: IV 153 156 90 0.9 NS 120 120 90 Pressure bag 33 36 Intake, IV Titration 445.439 715.038 Amount Labetalol 200 mg In 600 Sodium Chloride 0.9% 160 ml @ 2 MG/MIN 120 mls/hr IV .Q1H40M [facility] Rx#: [id number] fentaNYL (PF). 1,000 mcg 195.634 115.038 In Sodium Chloride 0.9% 80 ml @ Per Protocol IV . Q0M [facility] Rx#:[id number] propofoL 1,000 mg In 249.805 Empty Bag 1 bag @ Titrate IV .Q0M SPENSER Rx#: [id number] Tube Feeding 270 251 214 Other 90 90 90 Output: Urine 1025 1140 1030 Other: Voiding Method Indwelling Catheter Indwelling Catheter Indwelling Catheter # Bowel Movements 1 ABP, PAP, CO, CI - Last Documented Arterial Blood Pressure 174/68 - Exam GENERAL EXAM: Intubated, sedated 54-year-old gentleman, on mechanical ventilator current FiO2 50%, comfortable in no acute distress. The patient has a Bivona tracheostomy tube in place and is sedated. HEAD: Normocephalic. EYES: Sluggish reaction of pupils, equal size. NOSE: Clear with pink turbinates. THROAT: No erythema or exudates. NECK: No masses, no JVD. CHEST: No chest wall deformity. LUNGS: Equal air entry with crackles in the bilateral posterior bases. CVS: S1 and S2 normal with no audible murmur, regular rhythm. ABDOMEN: No hepatosplenomegaly, normal bowel sounds, no guarding or rigidity. The PEG tube is in a good location. SPINE: No scoliosis or deformity SKIN: No rashes CENTRAL NERVOUS SYSTEM: Patient is completely unresponsive, pupils around to the 3 mm in size, sluggishly reactive to light, no corneal reflexes, very sluggish pupillary reflex, motor functions and all 4 extremities, does not withdraw to any painful stimulation. EXTREMITIES: There is no peripheral edema. No clubbing, no cyanosis. Peripheral pulses are intact. - Labs CBC & Chem 7: 09/30/20 04:05 09/30/20 04:05 Labs: Abnormal Lab Results - Last 24 Hours (Table) 09/29/20 09/29/20 09/29/20 Range/Units 04:58 04:58 12:07 WBC (3.8-10.6) k/uL RBC (4.30-5.90) m/uL Hgb (13.0-17.5) gm/dL Hct (39.0-53.0) % RDW (11.5-15.5) % Neutrophils # (1.3-7.7) k/uL Lymphocytes # (1.0-4.8) k/uL Monocytes # (0-1.0) k/uL ABG pCO2 (35-45) mmHg ABG pO2 (83-108) mmHg ABG HCO3 (21-25) mmol/L ABG Total CO2 (19-24) mmol/L ABG O2 Saturation (94-97) % Sodium (137-145) mmol/L Chloride 109 H (98-107) mmol/L Carbon Dioxide 32 H (22-30) mmol/L BUN 49 H (9-20) mg/dL Glucose 192 H (74-99) mg/dL POC Glucose (mg/dL) 168 H (75-99) mg/dL Lactate Dehydrogenase 2371 H (313-618) U/L C-Reactive Protein 14.9 H (<1.0) mg/dL Procalcitonin 0.19 H (0.02-0.09) ng/mL 09/29/20 09/30/20 09/30/20 Range/Units 17:43 00:51 04:05 WBC 21.7 H (3.8-10.6) k/uL RBC 3.28 L (4.30-5.90) m/uL Hgb 10.3 L (13.0-17.5) gm/dL Hct 31.6 L (39.0-53.0) % RDW 16.5 H (11.5-15.5) % Neutrophils # 20.1 H (1.3-7.7) k/uL Lymphocytes # 0.3 L (1.0-4.8) k/uL Monocytes # 1.1 H (0-1.0) k/uL ABG pCO2 (35-45) mmHg ABG pO2 (83-108) mmHg ABG HCO3 (21-25) mmol/L ABG Total CO2 (19-24) mmol/L ABG O2 Saturation (94-97) % Sodium (137-145) mmol/L Chloride (98-107) mmol/L Carbon Dioxide (22-30) mmol/L BUN (9-20) mg/dL Glucose (74-99) mg/dL POC Glucose (mg/dL) 191 H 181 H (75-99) mg/dL Lactate Dehydrogenase (313-618) U/L C-Reactive Protein (<1.0) mg/dL Procalcitonin (0.02-0.09) ng/mL 09/30/20 09/30/20 Range/Units 04:05 05:35 WBC (3.8-10.6) k/uL RBC (4.30-5.90) m/uL Hgb (13.0-17.5) gm/dL Hct (39.0-53.0) % RDW (11.5-15.5) % Neutrophils # (1.3-7.7) k/uL Lymphocytes # (1.0-4.8) k/uL Monocytes # (0-1.0) k/uL ABG pCO2 57 H (35-45) mmHg ABG pO2 62 L (83-108) mmHg ABG HCO3 32 H (21-25) mmol/L ABG Total CO2 34 H (19-24) mmol/L ABG O2 Saturation 91.5 L (94-97) % Sodium 147 H (137-145) mmol/L Chloride 114 H (98-107) mmol/L Carbon Dioxide 33 H (22-30) mmol/L BUN 49 H (9-20) mg/dL Glucose 140 H (74-99) mg/dL POC Glucose (mg/dL) (75-99) mg/dL Lactate Dehydrogenase (313-618) U/L C-Reactive Protein (<1.0) mg/dL Procalcitonin (0.02-0.09) ng/mL Microbiology - Last 24 Hours (Table) 09/29/20 08:30 Gram Stain - Preliminary Sputum Sputum Culture - Preliminary Assessment and Plan Plan: 1 Acute hypoxemic respiratory failure secondary to COVID 19 pneumonitis. Required intubation on 09/12/2020. Had undergone tracheostomy and PEG tube placement on 09/22/2020. Did receive tocilizumab and convalescent plasma, remains currently on IV Solu-Medrol. The patient had diffuse breath and pulmonary infiltrates most on the lung bases bilaterally. PEEP currently is down to 13. The patient has been off sedation since yesterday and his been off sedation for the past 16 hours. Neurologically significantly impaired. There could be still a component of drug encephalopathy. The patient had prolonged intubation and prolonged use of sedative medications and paralytics. We are monitoring his neurologic response. I would suggest obtaining a CAT scan of the brain as a baseline, no contrast. The patient has a #[address]. 2 History of hypertension. 3 Former tobacco use. 4 Mildly elevated troponins, without chest pain. 5 enteral feeding for nutritional support through a PEG tube. 6 No computed tomography scan evidence of pulmonary embolism. 7 foul smelling odor from his mouth, halitosis along with some bleeding around the tracheostomy site. Plan: Keep the patient off sedation Continued IV cefepime Obtain a CAT scan of the head Obtain a CAT scan of the neck Adjust enteral feeding for nutritional support and her caloric requirements need to be calculated again Free water supplements, to be increased to 200 every 4 hours as the patient developed a component ofhypernatremia Chest x-ray was reviewed Blood gases was reviewed Stop the IV Solu Medrol and put the patient on prednisone burst taper Continue Lovenox Monitor inflammatory markers Critical condition We'll continue to follow critically care evaluation, more than 30 minutes. Time with Patient: Greater than 30
[2020-09-30 06:43] LABS: Glucose,Whole Blood 131 mg/dL (75-99)
[2020-09-30] MEDS: ALBUTEROL HFA INHALER INHALATION SCH ×4 (06:53→20:11)
[2020-09-30] MEDS: METOPROLOL TARTRATE 12.5 MG TAB PO SCH ×2 (10:33→21:09)
[2020-09-30] MEDS: CHLORHEXIDINE GLUCONATE 15 ML CUP MUCOUS MEM SCH ×2 (10:34→21:09)
[2020-09-30] MEDS: amLODIPine 10 MG TAB PO SCH (10:34)
[2020-09-30] MEDS: ASCORBIC ACID 500 MG TAB PO SCH ×2 (10:34→21:09)
[2020-09-30] MEDS: ATORVASTATIN 80 MG TAB PO SCH (10:34)
[2020-09-30] MEDS: ARTIFICIAL TEARS-HYPROMELLOSE DROPS 15 ML BTL BOTH EYES SCH ×4 (10:34→21:10)
[2020-09-30] MEDS: predniSONE 20 MG TAB PO SCH (10:34)
[2020-09-30] MEDS: ASPIRIN 81 MG PO SCH (10:34)
[2020-09-30] MEDS: CHOLECALCIFEROL 25 MCG (1000 IU) TABLET PO SCH (10:34)
[2020-09-30] MEDS: ZINC SULFATE 220 MG CAP PO SCH (10:34)
[2020-09-30] MEDS: ENOXAPARIN 40 MG/0.4 ML SYRINGE SQ SCH (10:34)
[2020-09-30] MEDS: LACTULOSE 20 GM/30 ML CUP PO SCH ×4 (10:34→21:09)
[2020-09-30] MEDS: FAMOTIDINE 20 MG TAB PO SCH ×2 (10:34→21:09)
[2020-09-30] MEDS: CLEVIDIPINE BUTYRATE 25 MG in EMPTY BAG 1 BAG IV SCH (12:12)
--- NOTE | 2020-09-30 12:27 | CT ---
EXAMINATION TYPE: CT brain wo con DATE OF EXAM: 09/30/2020 COMPARISON: None HISTORY: Altered mentation CT DLP: [address] of the brain was performed. The ventricles, basal cisterns and sulci overlying the cerebral convexities demonstrate mild enlargem ent. There is no evidence for intracranial hemorrhage or sulcal effacement. There is decreased attenuation about the periventricular white matter and deep white matter of both c erebral hemispheres, compatible with chronic small vessel ischemia. Differential diagnosis does inclu de demyelination. No mass effects are seen.No midline shift. Osseous calvarium is intact. If symptoms persist consider MRI. IMPRESSION: 1. Age related atrophic and chronic small vessel ischemic change without acute intracranial process s een at this time.
--- NOTE | 2020-09-30 12:35 | P.PN ---
Subjective Progress Note Date: 09/30/20 CHIEF COMPLAINT: COVID-19 pneumonia HISTORY OF PRESENT ILLNESS: Patient is in the ICU and is intubated. He is status post tracheostomy and PEG tube placement. Patient is tolerating tube feedings. No residual reported. Patient is currently off of sedation and not waking up. Critical care service has ordered computed tomography scan of the brain. Patient did have a temp of 100.7. White count 21.7 PHYSICAL EXAM: VITAL SIGNS: Reviewed. GENERAL: Well-developed in no acute distress. HEENT: Moist buccal mucosa. Head is atraumatic, normocephalic. Tracheostomy site clean dry and intact ABDOMEN: Soft. Nondistended. Nontender. PEG tube site clean dry and intact NEUROLOGIC: Intubated ASSESSMENT: 1. Acute hypoxic respiratory failure due to COVID-19 pneumonia with prolonged mechanical ventilation status post tracheostomy placement 2. Moderate protein calorie malnutrition status post PEG tube placement PLAN: -Continue tube feedings -Continue supportive care -Continue ICU management Physician Business [employer] Technology Instructor note has been reviewed by physician. Signing provider agrees with the documented findings, assessment, and plan of care. Objective - Vital Signs Vital signs: Vital Signs Temp 98.9 F 09/30/20 12:00 Pulse 76 09/30/20 12:00 Resp 32 H 09/30/20 12:00 BP 136/71 09/30/20 12:00 Pulse Ox 88 L 09/30/20 12:00 Intake & Output 09/29/20 09/30/20 09/30/20 18:59 06:59 18:59 Intake Total 1212.038 394 236 Output Total 1140 1030 255 Balance 72.038 -636 -19 Weight 101.5 kg 103.1 kg Intake: IV 156 90 0 0.9 NS 120 90 0 Pressure bag 36 Intake, IV Titration 715.038 Amount Labetalol 200 mg In 600 Sodium Chloride 0.9% 160 ml @ 2 MG/MIN 120 mls/hr IV .Q1H40M [facility] Rx#: [id number] fentaNYL (PF). 1,000 mcg 115.038 In Sodium Chloride 0.9% 80 ml @ Per Protocol IV . Q0M [facility] Rx#:[id number] Tube Feeding 251 214 36 Other 90 90 200 Output: Urine 1140 1030 255 Other: Voiding Method Indwelling Catheter Indwelling Catheter Indwelling Catheter # Bowel Movements 1 ABP, PAP, CO, CI - Last Documented Arterial Blood Pressure 174/68 - Labs CBC & Chem 7: 09/30/20 04:05 09/30/20 04:05 Labs: Abnormal Lab Results - Last 24 Hours (Table) 09/29/20 09/29/20 09/30/20 Range/Units 12:07 17:43 00:51 WBC (3.8-10.6) k/uL RBC (4.30-5.90) m/uL Hgb (13.0-17.5) gm/dL Hct (39.0-53.0) % RDW (11.5-15.5) % Neutrophils # (1.3-7.7) k/uL Lymphocytes # (1.0-4.8) k/uL Monocytes # (0-1.0) k/uL ABG pCO2 (35-45) mmHg ABG pO2 (83-108) mmHg ABG HCO3 (21-25) mmol/L ABG Total CO2 (19-24) mmol/L ABG O2 Saturation (94-97) % Sodium (137-145) mmol/L Chloride (98-107) mmol/L Carbon Dioxide (22-30) mmol/L BUN (9-20) mg/dL Glucose (74-99) mg/dL POC Glucose (mg/dL) 168 H 191 H 181 H (75-99) mg/dL 09/30/20 09/30/20 09/30/20 Range/Units 04:05 04:05 05:35 WBC 21.7 H (3.8-10.6) k/uL RBC 3.28 L (4.30-5.90) m/uL Hgb 10.3 L (13.0-17.5) gm/dL Hct 31.6 L (39.0-53.0) % RDW 16.5 H (11.5-15.5) % Neutrophils # 20.1 H (1.3-7.7) k/uL Lymphocytes # 0.3 L (1.0-4.8) k/uL Monocytes # 1.1 H (0-1.0) k/uL ABG pCO2 57 H (35-45) mmHg ABG pO2 62 L (83-108) mmHg ABG HCO3 32 H (21-25) mmol/L ABG Total CO2 34 H (19-24) mmol/L ABG O2 Saturation 91.5 L (94-97) % Sodium 147 H (137-145) mmol/L Chloride 114 H (98-107) mmol/L Carbon Dioxide 33 H (22-30) mmol/L BUN 49 H (9-20) mg/dL Glucose 140 H (74-99) mg/dL POC Glucose (mg/dL) (75-99) mg/dL 09/30/20 Range/Units 06:41 WBC (3.8-10.6) k/uL RBC (4.30-5.90) m/uL Hgb (13.0-17.5) gm/dL Hct (39.0-53.0) % RDW (11.5-15.5) % Neutrophils # (1.3-7.7) k/uL Lymphocytes # (1.0-4.8) k/uL Monocytes # (0-1.0) k/uL ABG pCO2 (35-45) mmHg ABG pO2 (83-108) mmHg ABG HCO3 (21-25) mmol/L ABG Total CO2 (19-24) mmol/L ABG O2 Saturation (94-97) % Sodium (137-145) mmol/L Chloride (98-107) mmol/L Carbon Dioxide (22-30) mmol/L BUN (9-20) mg/dL Glucose (74-99) mg/dL POC Glucose (mg/dL) 131 H (75-99) mg/dL Microbiology - Last 24 Hours (Table) 09/29/20 08:30 Gram Stain - Preliminary Sputum Sputum Culture - Preliminary
--- NOTE | 2020-09-30 12:53 | CT ---
EXAMINATION TYPE: CT neck chest without con DATE OF EXAM: 09/30/2020 COMPARISON: None HISTORY: Halitosis, trach, COVID 19 hypoxia, respiratory distress CT DLP: 720.4 mGycm CONTRAST: Unenhanced CT of the neck was performed from the skull base through the lung apices. Lack of contrast limits evaluation. There is tracheostomy noted in place. Tip of the tracheostomy tube is 4.7 cm from the roseline. AIRWAY: The supraglottic, glottic, and subglottic portions of the airway appear patent and free of mass. SALIVARY GLANDS: The submandibular and parotid glands are free of mass or inflammatory process. THYROID GLAND: No nodules or masses seen. LYMPH NODES: No adenopathy seen greater than 1cm. LUNG APICES: No nodule or mass is seen. OTHER: Vascular structures are patent. No significant degenerative change of the cervical spine. N o abscess seen. IMPRESSION: Tracheostomy tube is in place without evidence for unusual adjacent collection. Overall CT of the nec k without contrast is grossly unremarkable. EXAMINATION TYPE: CT neck chest without con DATE OF EXAM: 09/30/2020 COMPARISON: 09/02/2020 HISTORY: Halitosis, trach, COVID 19 hypoxia, respiratory distress CT DLP: 720.[address] of the chest was performed with lung and mediastinal window settings submitted. The la ck of contrast limits evaluation of the vascular, mediastinal and parenchymal structures including th e upper abdomen. LUNGS: Patchy groundglass airspace infiltrates seen bilaterally slightly improved from prior study. S mall effusions noted as well. MEDIASTINUM/YANE: Thoracic aorta is of normal caliber with limited evaluation given lack of contrast . The heart is not enlarged. No evidence for mediastinal mass. No lymph nodes greater than 1cm. UPPER ABDOMEN: No significant abnormality is seen. OTHER: Gastrostomy noted to be in place. IMPRESSION: 1. Patchy groundglass airspace infiltrates seen bilaterally slightly improved from prior study. Smal l effusions noted as well.
--- NOTE | 2020-09-30 13:09 | P.PN ---
Subjective Progress Note Date: 09/30/20 This is a 54-year-old male who was recently admitted with acute hypoxic respiratory failure secondary to COVID-19 pneumonia and is being closely monitored. Continues to remain on mechanical ventilation currently sedated. Patient has had prolonged hospitalization with unsuccessful attempts at weaning and surgery has been consulted for tracheostomy along with PEG tube placement. Patient was on D5 water for hypernatremia and will be discontinued. Tube feedings on hold for surgery today and will resume once PEG tube is okay for use. Per nursing staff patient has also been in the prone position since yesterday evening into this morning and tolerated. Amiodarone has also been discontinued as patient is currently bradycardic. Pulmonary dye can operator following closely. Patient is maintained on sliding scale and will monitor closely once tube feedings have resumed. 09/23/2020 Patient is seen in follow-up continues to be closely monitored in the ICU maintained on mechanical vent via tracheostomy as he underwent trach and PEG tube placement yesterday with surgery. Tube feedings to resume via PEG tube this afternoon after clearance from surgery. Chest x-ray today shows bilateral multifocal and confluent opacities left greater than right consistent with COVID-19 again redemonstrated with no significant change from yesterday. Pulmonary also following. White blood count at 20.9, hemoglobin is 11.3, current sodium is 138 with a potassium of 5.2, and creatinine is 0.83. 09/24/2020 Patient continues to be intubated and sedated in the ICU status post tracheostomy and PEG tube placement. Tube feedings have been resumed and patient is tolerating. Chest x-ray today shows continued patchy airspace infiltrates although there is interval improvement noted. Pulmonary following closely. White blood count slightly elevated at 23.2 patient is maintained on IV Solu-Medrol every 6 hours. Sodium 143 with a potassium of 5.0 and current creatinine is 0.84. 09/25/2020 Patient continues to be in the ICU on mechanical ventilation intubated via tracheostomy and continued on sedation and is being closely monitored. PEEP being titrated down slowly and patient continues on Nimbex along with propofol and fentanyl. White blood count on a downward trend 17.2 with hemoglobin of 9.7, sodium is 144 with a potassium of 4.9 and current creatinine is 0.95. FiO2 remains at 50 and maintaining 87 and 90% oxygen saturation. Social work also following and discussion with family about possible LTAC placement. 09/26/2020 Patient is seen in follow-up continues to be closely monitored in the ICU. Patient is off of Nimbex since yesterday and tolerating. Patient continues to be sedated and pulmonary dye can operator following closely and working on weaning FiO2 as tolerated. FiO2 has been decreased to 50 and PEEP continues at 17. Patient's calcium was low on this morning's labs at 4.9 and was given a dose of calcium gluconate. Patient labs this morning show sodium of 143 with a potassium of 3.5 and creatinine is 0.57, LDH is 1027, CRP is 8.7 and magnesium is 1.9. Continue with electrolyte replacement per protocol. His repeat potassium this afternoon as showing 6.0 may potentially be a hemolyzed sample and will redraw and monitor closely. Patient did receive that Braden supplementation from this morning's labs as it was 3.5. 09/27/2020 The patient remains on the mechanical ventilator. His vent settings include assist control mode, rate 32, tidal volume 420, FiO2 50%, and PEEP of 17. Arterial blood gases show pO2 61, pCO2 56, pH 7.38. The patient's currently on propofol at 35 mcg/kg/m, and fentanyl 1.5 mcg/kg per hour. The patient's getting saline at KVO, and tube feedings with Nepro at 25 mL an hour which is goal. Chest x-ray is stable. Shows bilateral diffuse infiltrates. White count 18.1, he will 9.7, hematocrit 30.2, platelet count 175,000. D-dimer is 1.27. Sodium 144, potassium 4.1, chlorides 118, CO2 27, BUN 42, creatinine 0.78. LDH is 1528, and C-reactive protein is 13.5. 09/28/2020 patient is seen in follow-up in the intensive care unit. HRemains intubated and on mechanical ventilator. He had undergone tracheostomy tube and PEG tube placements on 09/22/2020. He is sedated on propofol at 40 mcg/kg/m. Fentanyl at 1.5 mcg/mg per hour. 0.9 normal saline at KVO. He is being nourished with Nepro at 25 ML's per hour which is goal. Free water flushes at 30 MLS every 4 hours. He's had daily interruption of sedation. Once off sedation his blood pressure goes up to 200 systolic range. Today's chest x-ray reveals stable bilateral diffuse interstitial infiltrates. He has received 1 unit of convalescent plasma. Blood cultures reveal no growth. White count 15.5. Hemoglobin 8.8. Platelets 160. Sodium 142. Potassium 4.9. Creatinine 0.86. He has continued on Solu-Medrol, Lovenox, vitamin supplements. Prognosis remains guarded. 09/29/2020 Patient is seen in follow-up continues to be in the ICU intubated and sedated. Patient is off Nimbex with attempts at sedation holiday and having rebound blood pressure issues and placed on labetalol. Continues on IV Solu-Medrol along with vitamin and zinc supplements and Lovenox and will continue. FiO2 down to 50 and PEEP of 13. Pulmonary following closely. Patient continues with intermittent low-grade temps and elevated white count. D-dimer today is 1.57, sodium is 145, potassium is 4.6, current creatinine is 0.86. Inflammatory markers are elevated along with CRP and probe calcitonin. 09/30/2020 Patient is seen in follow-up currently remains in the ICU intubated and off sedation but no activity noted. Patient is not responding to commands and CT of the brain is ordered showing age-related atrophic and chronic small vessel ischemic change without any acute intracranial process along with the neck and chest CT continues to show groundglass opacities. Patient is off of labetalol and continues on that now. Propofol has been discontinued. Steroids transition to oral and given via PEG tube and continues on tube feedings which he is tolera ting. White blood count continues to be elevated at 21.7 and hemoglobin is 10.3, sodium is 147 and will increase free water flushes with tube feedings and monitor sodium closely. Potassium is 4.5. Review of systems: Unable to obtain as patient continues to be intubated and sedated Active Medications Acetaminophen (Acetaminophen Tab 325 Mg Tab) 650 mg PO Q6HR PRN PRN Reason: Fever and/ or Pain Last Admin: 09/16/20 11:48 Dose: 650 mg Documented by: Albuterol Sulfate (Albuterol Hfa Inhaler) 2 puff INHALATION RT-QID [facility] Last Admin: 09/30/20 11:07 Dose: 2 puff Documented by: Amlodipine Besylate (Amlodipine 10 Mg Tab) 10 mg PO DAILY [facility] Last Admin: 09/30/20 10:34 Dose: 10 mg Documented by: Artificial Tears (Artificial Tears-Hypromellose Drops 15 Ml Btl) 2 drops BOTH EYES QID [facility] Last Admin: 09/30/20 10:34 Dose: Not Given Documented by: Ascorbic Acid (Ascorbic Acid 500 Mg Tab) 500 mg PO BID [facility] Last Admin: 09/30/20 10:34 Dose: 500 mg Documented by: Aspirin (Aspirin 81 Mg) 81 mg PO DAILY [facility] Last Admin: 09/30/20 10:34 Dose: 81 mg Documented by: Atorvastatin Calcium (Atorvastatin 80 Mg Tab) 80 mg PO DAILY [facility] Last Admin: 09/30/20 10:34 Dose: 80 mg Documented by: Chlorhexidine Gluconate (Chlorhexidine Gluconate 15 Ml Cup) 15 ml MUCOUS MEM BID [facility] Last Admin: 09/30/20 10:34 Dose: 15 ml Documented by: Cholecalciferol (Cholecalciferol 25 Mcg (1000 Iu) Tablet) 125 mcg PO DAILY [facility] Last Admin: 09/30/20 10:34 Dose: 125 mcg Documented by: Enoxaparin Sodium (Enoxaparin 40 Mg/0.4 Ml Syringe) 40 mg SQ DAILY [facility] Last Admin: 09/30/20 10:34 Dose: 40 mg Documented by: Famotidine (Famotidine 20 Mg Tab) 20 mg PO BID [facility] Last Admin: 09/30/20 10:34 Dose: 20 mg Documented by: Heparin Sodium (Porcine) (Heparin Sodium 1,000 Un/Ml (10ml Vl)) 0 unit IV PER PROTOCOL PRN; Protocol PRN Reason: Low PTT Last Admin: 09/03/20 17:35 Dose: 4,900 unit Documented by: Fentanyl Citrate 1,000 mcg/ (Sodium Chloride) 100 mls @ 0 mls/hr IV .Q0M [facility]; Protocol Last Titration: 09/29/20 12:45 Dose: 1 mcg/kg/hr, 9.24 mls/hr Documented by: Clevidipine 25 mg/ IV Solution 50 mls @ 2 mls/hr IV .Q24H [facility]; Protocol Last Admin: 09/30/20 12:12 Dose: Not Given Documented by: Labetalol HCl 200 mg/ Sodium (Chloride) 200 mls @ 120 mls/hr IV .Q1H40M [facility]; Protocol Last Admin: 09/30/20 12:13 Dose: Not Given Documented by: Insulin Aspart (Insulin Aspart (Novolog) 100 Unit/Ml Vial) 0 unit SQ Q6HR [facility]; Protocol Last Admin: 09/30/20 06:45 Dose: 1 unit Documented by: Lactulose (Lactulose 20 Gm/30 Ml Cup) 20 gm PO QID [facility] Last Admin: 09/30/20 10:34 Dose: 20 gm Documented by: Metoprolol Tartrate (Metoprolol Tartrate 12.5 Mg Tab) 12.5 mg PO BID [facility] Last Admin: 09/30/20 10:33 Dose: 12.5 mg Documented by: Nitroglycerin (Nitroglycerin Sl Tabs 0.4 Mg Tab) 0.4 mg SUBLINGUAL Q5M PRN PRN Reason: Chest Pain Last Admin: 09/07/20 03:35 Dose: 0.4 mg Documented by: Prednisone (Prednisone 20 Mg Tab) 40 mg PO DAILY [facility] Last Admin: 09/30/20 10:34 Dose: 40 mg Documented by: Promethazine HCl (Promethazine Hcl 6.25 Mg/5 Ml Cup) 12.5 mg PO QID PRN PRN Reason: Cough Last Admin: 09/06/20 02:07 Dose: 12.5 mg Documented by: Zinc Sulfate (Zinc Sulfate 220 Mg Cap) 220 mg PO DAILY [facility] Last Admin: 09/30/20 10:34 Dose: 220 mg Documented by: Objective - Vital Signs Vital signs: Vital Signs Temp 100.7 F H 09/30/20 08:00 Pulse 73 09/30/20 08:00 Resp 32 H 09/30/20 08:00 BP 139/71 09/30/20 08:00 Pulse Ox 89 L 09/30/20 08:00 Intake & Output 09/29/20 09/30/20 09/30/20 18:59 06:59 18:59 Intake Total 1212.038 394 236 Output Total 1140 1030 180 Balance 72.038 -636 56 Weight 101.5 kg 103.1 kg Intake: IV 156 90 0 0.9 NS 120 90 0 Pressure bag 36 Intake, IV Titration 715.038 Amount Labetalol 200 mg In 600 Sodium Chloride 0.9% 160 ml @ 2 MG/MIN 120 mls/hr IV .Q1H40M [facility] Rx#: [id number] fentaNYL (PF). 1,000 mcg 115.038 In Sodium Chloride 0.9% 80 ml @ Per Protocol IV . Q0M [facility] Rx#:[id number] Tube Feeding 251 214 36 Other 90 90 200 Output: Urine 1140 1030 180 Other: Voiding Method Indwelling Catheter Indwelling Catheter # Bowel Movements 1 ABP, PAP, CO, CI - Last Documented Arterial Blood Pressure 174/68 - Exam Gen: This is a 54-year-old male currently intubated and off sedation with no activity noted. FiO2 decreased to 50, PEEP of 13 HEENT: Head is atraumatic, normocephalic. Pupils equal, round. Sclerae is anicteric. NECK: Supple. No JVD. No lymphadenopathy. No thyromegaly. Tracheostomy noted LUNGS: diminished breath sounds bilaterally with some scattered rhonchi and crackles noted. Tachypneic. No intercostal retractions. HEART: S1, S2 are muffled ABDOMEN: Soft. Obese. Bowel sounds are present. No masses. No tenderness. PEG tube noted EXTREMITIES: No pedal edema. No calf tenderness. NEUROLOGICAL: Unable to completely assess as patient is intubated and off sedation - Labs CBC & Chem 7: 09/30/20 04:05 09/30/20 04:05 Labs: Abnormal Lab Results - Last 24 Hours (Table) 09/29/20 09/29/20 09/29/20 Range/Units 04:58 12:07 17:43 WBC (3.8-10.6) k/uL RBC (4.30-5.90) m/uL Hgb (13.0-17.5) gm/dL Hct (39.0-53.0) % RDW (11.5-15.5) % Neutrophils # (1.3-7.7) k/uL Lymphocytes # (1.0-4.8) k/uL Monocytes # (0-1.0) k/uL ABG pCO2 (35-45) mmHg ABG pO2 (83-108) mmHg ABG HCO3 (21-25) mmol/L ABG Total CO2 (19-24) mmol/L ABG O2 Saturation (94-97) % Sodium (137-145) mmol/L Chloride (98-107) mmol/L Carbon Dioxide (22-30) mmol/L BUN (9-20) mg/dL Glucose (74-99) mg/dL POC Glucose (mg/dL) 168 H 191 H (75-99) mg/dL Procalcitonin 0.19 H (0.02-0.09) ng/mL 09/30/20 09/30/20 09/30/20 Range/Units 00:51 04:05 04:05 WBC 21.7 H (3.8-10.6) k/uL RBC 3.28 L (4.30-5.90) m/uL Hgb 10.3 L (13.0-17.5) gm/dL Hct 31.6 L (39.0-53.0) % RDW 16.5 H (11.5-15.5) % Neutrophils # 20.1 H (1.3-7.7) k/uL Lymphocytes # 0.3 L (1.0-4.8) k/uL Monocytes # 1.1 H (0-1.0) k/uL ABG pCO2 (35-45) mmHg ABG pO2 (83-108) mmHg ABG HCO3 (21-25) mmol/L ABG Total CO2 (19-24) mmol/L ABG O2 Saturation (94-97) % Sodium 147 H (137-145) mmol/L Chloride 114 H (98-107) mmol/L Carbon Dioxide 33 H (22-30) mmol/L BUN 49 H (9-20) mg/dL Glucose 140 H (74-99) mg/dL POC Glucose (mg/dL) 181 H (75-99) mg/dL Procalcitonin (0.02-0.09) ng/mL 09/30/20 09/30/20 Range/Units 05:35 06:41 WBC (3.8-10.6) k/uL RBC (4.30-5.90) m/uL Hgb (13.0-17.5) gm/dL Hct (39.0-53.0) % RDW (11.5-15.5) % Neutrophils # (1.3-7.7) k/uL Lymphocytes # (1.0-4.8) k/uL Monocytes # (0-1.0) k/uL ABG pCO2 57 H (35-45) mmHg ABG pO2 62 L (83-108) mmHg ABG HCO3 32 H (21-25) mmol/L ABG Total CO2 34 H (19-24) mmol/L ABG O2 Saturation 91.5 L (94-97) % Sodium (137-145) mmol/L Chloride (98-107) mmol/L Carbon Dioxide (22-30) mmol/L BUN (9-20) mg/dL Glucose (74-99) mg/dL POC Glucose (mg/dL) 131 H (75-99) mg/dL Procalcitonin (0.02-0.09) ng/mL Microbiology - Last 24 Hours (Table) 09/29/20 08:30 Gram Stain - Preliminary Sputum Sputum Culture - Preliminary Assessment and Plan Assessment: -Acute hypoxic respiratory failure secondary to Covid 19 pneumonia, extensive interstitial pneumonia on mechanical ventilation -Status post PEG tube and tracheostomy placement -Acute lactic acidosis -Hypocalcemia -Atrial fibrillation with fast ventricular rate -Change in mental status, acute metabolic encephalopathy -Elevated random blood glucose -Hypernatremia -Hypertension -Elevated troponin possibly secondary to type II acute myocardial infarction secondary to hypoxemia and COVID-19 -History of gastroesophageal reflux disease -GI prophylaxis with Pepcid -DVT prophylaxis with Lovenox -Full code Recommendations and discussion: Recommend to continue with current medications and continue to monitor in the ICU as patient continues to be on mechanical vent intubated. Patient is off of sedation with no activity noted and underwent CT showing no acute process. Blood pressure more controlled today and off of labetalol. Sodium continues to be elevated at 147 and increasing free water flushes via PEG tube area did Patient currently tracheostomy dependent. FiO2 is at 50 and a PEEP of 13. Weaning as tolerated per dye can operator. Continue with Accu-Cheks every 6 and sliding scale as needed. Fagoting Machine Operator following closely. Pulmonary following closely. Due to multiple complex medical issues, prognosis remains extremely guarded.
[2020-09-30 17:47] LABS: Glucose,Whole Blood 168 mg/dL (75-99)
[2020-09-30] MEDS ORDERED: ACETAMINOPHEN IV (For NPO) 1,000 MG in EMPTY BAG 1 BAG IVPB PRN (21:34)
[2020-09-30 23:39] LABS: Glucose,Whole Blood 158 mg/dL (75-99)
[2020-10-01] MEDS ORDERED: SODIUM CHLORIDE 0.9% 1,000 ML IV SCH (03:15)
[2020-10-01 04:44] LABS: ABG Base Excess 6.2 mmol/L; ABG HCO3 32 mmol/L (21-25); ABG Oxygen Saturation 91.4 % (94-97); ABG PCO2 56 mmHg (35-45); ABG PH 7.36 (7.35-7.45); ABG PO2 62 mmHg (83-108); ABG TCO2 33 mmol/L (19-24)
[2020-10-01 04:50] LABS: Glucose,Whole Blood 111 mg/dL (75-99)
[2020-10-01 05:01] LABS: Anisocytosis Slight; Basophils % (A) 0 %; Eosinophils % (A) 0 %; HCT 30.6 % (39.0-53.0); HGB 9.6 gm/dL (13.0-17.5); Hypochromasia Slight; Lymphocytes # (A) 0.5 k/uL (1.0-4.8); Lymphocytes % (A) 2 %; MCH 30.4 pg (25.0-35.0); MCHC 31.5 g/dL (31.0-37.0); MCV 96.5 fL (80.0-100.0); Macrocytosis Slight; Mean Platelet Volume 9.9; Monocytes # (A) 0.8 k/uL (0-1.0); Monocytes % (A) 3 %; Neutrophils # (A) 21.2 k/uL (1.3-7.7); Neutrophils % (A) 94 %; Platelet Count 154 k/uL (150-450); RBC 3.17 m/uL (4.30-5.90); WBC 22.7 k/uL (3.8-10.6)
[2020-10-01 05:18] LABS: Calcium 8.1 mg/dL (8.4-10.2); Potassium 4.7 mmol/L (3.5-5.1)
[2020-10-01 05:28] LABS: C Reactive Protein 20.5 mg/dL (<1.0)
[2020-10-01] MEDS: INSULIN ASPART (NovoLOG) 100 UNIT/ML VIAL SQ SCH ×3 (05:57→19:02)
[2020-10-01 06:21] LABS: Allen Test Performed? no
--- NOTE | 2020-10-01 06:42 | P.PN ---
Subjective Progress Note Date: 10/01/20 09/29/2020 the patient is being seen in follow-up. The patient is an acute hypoxic respiratory failure secondary to COVID-19 limited pneumonia. The patient is post intubation mechanical ventilation as of 09/12/2020. The patient undergone tracheostomy and PEG tube insertion 09/22/2020. During the course of the treatment, the patient received a combination of steroids, convalescent plasma and Tocilizumab. The patient continues to be on IV Solu-Medrol 40 mg IV every 8 hours. The patient is also on Lovenox 40 mg subcu to 24 hours. The LDH level from 09/27/2000 was 1528 and the patient's CRP level was 13.5. Renal function stable. The patient remains in intensive care unit and the patient is ventilator dependent. The patient remains on mechanical ventilator on assist control mode rate of 32 with a tidal volume of 420, fio2 50% with a PEEP of 13. The peak airway pressure is around 37. Static pressures around 33. He does have a foul-smelling odor from his mouth. He has a Bivona tracheostomy tube #7. Patient is sedated with propofol running at 40 mcg/kg per minute and fentanyl at 1.5 mg/kg/h. IV fluids are running at KVO and the patient is receiving enteral feeding for nutritional support utilizing Nepro 25 mL every 24 hours if the patient is also on Cleviprex for blood pressure control and he is off the medication. Chest x-ray showing but the pulmonary infiltrates involving the mid and lower lobes bilaterally quite dense and lower lobes. Patient's tracheostomy tube is in a good location. Hemodynamically stable on no pressors. Attempts to wean him off the sedation has failed and the patient became tachycardic and he has required Cleviprex on and off. Nevertheless, Cleviprex is made in become tachycardic. On 09/30/2020 by the patient is completely of sedation for the past 24 hours. Note that prior attempts to get this patient off sedation at failure the patient was developing an acute hypertensive reaction and ultimately I was able to get him off the propofol and fentanyl yesterday and he does have labetalol as a backup which was never used as the patient remained normotensive during the process. His been off sedation for at least 16 hours. Neurologically, significantly impaired, completely unresponsive, barely any cough or gag and limited particularly response. Does not respond to any verbal or painful stimulation. He remains on a mechanical ventilator. This morning he is an assist-control mode at the rate of 32 with a tidal volume of 420 and FiO2 of 50% with a PEEP of 13. The blood gases from today is still pending. Meanwhile, the chest x-ray shows essentially stable findings with a Bivona tracheostomy tube in place and there is still persistent but the pulmonary infiltrates, essentially unchanged compared to yesterday. Another issue is the halitosis as the patient has a bad odor coming from his mouth. There is some purulent secretions around the tracheostomy tube that was noted at the same time there is some bleeding this coming from his mouth and the patient has required frequent suctioning. I noted the canister and that is probably around 200 mL of bloody material collected since yesterday. His white cell count is at 21. The patient is on IV cefepime. Focused on is obtained from yesterday was 0.19. Otherwise, rest of the electrodes are showing a component of hyperchloremic hypernatremia. Sodium is at 147. Creatinine is 0.9. LDH from yesterday was 2371. The patient currently is IV Solu-Medrol 40 mg every 8 hours. The patient is also on Lovenox 40 mg subcu to 24 hours. As mentioned, his been off sedation and off paralytics. Enteral feeding for nutritional support is through Nepro via PEG tube at the rate of 18 mL an hour On 10/01/2020, the patient remains unresponsive despite being off sedation for 48 hours. He is off paralytics. He is off propofol. He is off fentanyl. Penicillin significant or reasonable neurological recovery yet. The patient has brainstem reflexes. Nevertheless, the patient is not responding to any painful stimulation. Does not respond to any verbal commands. Does not open up his eyes spontaneously. Does not move his extremities spontaneously. The CAT scan of the head that was done on 09/30/2020 showed age-related atrophy with chronic small vessel ischemic change without any acute process. He is on mechanical ventilator. He remains on assist control mode at the rate of 32 with a tidal volume of 420 and the respiratory rate of 32 with an FiO2 of 50% with a PEEP of 13. Blood gases from today showed a pH of 7.36 with a pCO2 of 56 with a pO2 of 62 and this is essentially the same as yesterday without any major interval change. Chest x-ray from today is showing diffuse bilateral pulmonary infiltrates, unchanged and the patient has a tracheostomy tube in place which is in the 1 tracheostomy tube #7. No evidence of any pneumothorax. He also CAT s can of the neck yesterday that showed tracheostomy tube in good location. The CAT scan of the neck was essentially on remarkable. The lungs showed patchy groundglass airspace disease bilaterally, he has slightly improved compared to the prior study. Small effusions were also noted. Mediastinum was essentially within normal limits. The patient's LDH level is at 2244 and a CRP level is at 20.5. Creatinine is at 1.3 which is a rise compared to yesterday and the White counts was a 22.7 with a hemoglobin of 9.6. He is currently on prednisone 40 mg by mouth daily. He is on Lovenox 40 mg subcu every 24 hours. His net fluid balance is -560 mL over the past 24 hours. Enteral feeding is in the form of Nepro at the rate of 80 mL an hour. He is also having IV fluids in the form of normal saline running at 75 mL an hour. Sodium level is 48 with a chloride level of 112. D-dimer level is at 3.48. Objective - Vital Signs Vital signs: Vital Signs Temp 100.4 F H 10/01/20 04:00 Pulse 68 10/01/20 06:00 Resp 32 H 10/01/20 06:00 BP 113/62 10/01/20 06:00 Pulse Ox 91 L 10/01/20 06:00 Intake & Output 09/30/20 09/30/20 10/01/20 06:59 18:59 06:59 Intake Total 394 254 829.025 Output Total 1030 605 485 Balance -636 351 344.025 Weight 103.1 kg 103.1 kg 98.9 kg Intake: IV 90 0 255 0.9 NS 90 0 225 Pressure bag 30 Intake, IV Titration 48.025 Amount fentaNYL (PF). 1,000 mcg 48.025 In Sodium Chloride 0.9% 80 ml @ Per Protocol IV . Q0M [facility] Rx#:[id number] Tube Feeding 214 54 126 Other 90 200 400 Output: Urine 1030 605 485 Other: Voiding Method Indwelling Catheter Indwelling Catheter Indwelling Catheter ABP, PAP, CO, CI - Last Documented Arterial Blood Pressure 125/52 - Exam GENERAL EXAM: Intubated, sedated 54-year-old gentleman, on mechanical ventilator current FiO2 50%, comfortable in no acute distress. The patient has a Bivona tracheostomy tube in place and is sedated. HEAD: Normocephalic. EYES: Sluggish reaction of pupils, equal size. NOSE: Clear with pink turbinates. THROAT: No erythema or exudates. NECK: No masses, no JVD. CHEST: No chest wall deformity. LUNGS: Equal air entry with crackles in the bilateral posterior bases. CVS: S1 and S2 normal with no audible murmur, regular rhythm. ABDOMEN: No hepatosplenomegaly, normal bowel sounds, no guarding or rigidity. The PEG tube is in a good location. SPINE: No scoliosis or deformity SKIN: No rashes CENTRAL NERVOUS SYSTEM: Patient is completely unresponsive, pupils around to the 3 mm in size, sluggishly reactive to light, no corneal reflexes, very sluggish pupillary reflex, motor functions and all 4 extremities, does not withdraw to any painful stimulation. Neurologic exam remains unchanged. Brain Stem r eflexes are present. Completely unresponsive. EXTREMITIES: There is no peripheral edema. No clubbing, no cyanosis. Peripheral pulses are intact. - Labs CBC & Chem 7: 10/01/20 04:45 10/01/20 04:45 Labs: Abnormal Lab Results - Last 24 Hours (Table) 09/30/20 09/30/20 09/30/20 Range/Units 06:41 17:46 23:38 WBC (3.8-10.6) k/uL RBC (4.30-5.90) m/uL Hgb (13.0-17.5) gm/dL Hct (39.0-53.0) % RDW (11.5-15.5) % Neutrophils # (1.3-7.7) k/uL Lymphocytes # (1.0-4.8) k/uL D-Dimer (<0.60) mg/L FEU ABG pCO2 (35-45) mmHg ABG pO2 (83-108) mmHg ABG HCO3 (21-25) mmol/L ABG Total CO2 (19-24) mmol/L ABG O2 Saturation (94-97) % Sodium (137-145) mmol/L Chloride (98-107) mmol/L Carbon Dioxide (22-30) mmol/L BUN (9-20) mg/dL Creatinine (0.66-1.25) mg/dL Glucose (74-99) mg/dL POC Glucose (mg/dL) 131 H 168 H 158 H (75-99) mg/dL Calcium (8.4-10.2) mg/dL Lactate Dehydrogenase (313-618) U/L C-Reactive Protein (<1.0) mg/dL 10/01/20 10/01/20 10/01/20 Range/Units 04:41 04:45 04:45 WBC 22.7 H (3.8-10.6) k/uL RBC 3.17 L (4.30-5.90) m/uL Hgb 9.6 L (13.0-17.5) gm/dL Hct 30.6 L (39.0-53.0) % RDW 17.0 H (11.5-15.5) % Neutrophils # 21.2 H (1.3-7.7) k/uL Lymphocytes # 0.5 L (1.0-4.8) k/uL D-Dimer (<0.60) mg/L FEU ABG pCO2 56 H (35-45) mmHg ABG pO2 62 L (83-108) mmHg ABG HCO3 32 H (21-25) mmol/L ABG Total CO2 33 H (19-24) mmol/L ABG O2 Saturation 91.4 L (94-97) % Sodium 148 H (137-145) mmol/L Chloride 112 H (98-107) mmol/L Carbon Dioxide 32 H (22-30) mmol/L BUN 69 H (9-20) mg/dL Creatinine 1.31 H (0.66-1.25) mg/dL Glucose 105 H (74-99) mg/dL POC Glucose (mg/dL) (75-99) mg/dL Calcium 8.1 L (8.4-10.2) mg/dL Lactate Dehydrogenase 2244 H (313-618) U/L C-Reactive Protein 20.5 H (<1.0) mg/dL 10/01/20 10/01/20 Range/Units 04:45 04:49 WBC (3.8-10.6) k/uL RBC (4.30-5.90) m/uL Hgb (13.0-17.5) gm/dL Hct (39.0-53.0) % RDW (11.5-15.5) % Neutrophils # (1.3-7.7) k/uL Lymphocytes # (1.0-4.8) k/uL D-Dimer 3.48 H (<0.60) mg/L FEU ABG pCO2 (35-45) mmHg ABG pO2 (83-108) mmHg ABG HCO3 (21-25) mmol/L ABG Total CO2 (19-24) mmol/L ABG O2 Saturation (94-97) % Sodium (137-145) mmol/L Chloride (98-107) mmol/L Carbon Dioxide (22-30) mmol/L BUN (9-20) mg/dL Creatinine (0.66-1.25) mg/dL Glucose (74-99) mg/dL POC Glucose (mg/dL) 111 H (75-99) mg/dL Calcium (8.4-10.2) mg/dL Lactate Dehydrogenase (313-618) U/L C-Reactive Protein (<1.0) mg/dL Assessment and Plan Plan: 1 Acute hypoxemic respiratory failure secondary to COVID 19 pneumonitis. Required intubation on 09/12/2020. Had undergone tracheostomy and PEG tube placement on 09/22/2020. Did receive tocilizumab and convalescent plasma, remains currently on IV Solu-Medrol. The patient had diffuse breath and pulmonary infiltrates most on the lung bases bilaterally. PEEP currently is down to 13. The patient has been off sedation since yesterday and his been off sedation for the past 48 hours. Neurologically significantly impaired. The patient remains unresponsive. There could be still a component of drug encephalopathy. The patient had prolonged intubation and prolonged use of sedative medications and paralytics. We are monitoring his neurologic changes in the patient's CAT scan of the brain was completed yesterday showing no acute abnormalities. There is atrophy and chronic small vessel ischemic change. He remains unresponsive. Based on reflexes are present. CAT scan of the chest is showing some diffuse bilateral groundglass pulmonary changes consistent with Covid activated pneumonia and this improved slightly. The patient remains on prednisone. Patient is also on Lovenox for DVT prophylaxis. 2 History of hypertension. 3 unresponsive, comatose state with present brainstem reflexes and absent cortical functions. CAT scan of the brain is essentially showing no acute abnormalities. 4 non-STEMI with troponin max of 6 6.5, echocardiogram with moderate concentric LVH 5 enteral feeding for nutritional support through a PEG tube. The patient is receiving enteral feeding for nutritional support via Nepro 6 acute kidney injury in the creatinine is up to 1.3 7 foul smelling odor from his mouth, halitosis along with some bleeding around the tracheostomy site. CAT scan of the neck shows no acute abnormalities. Tracheostomy tube is in good location and there are no neck or pharyngeal abscesses. 8 hypernatremia, sodium level is at 148 Plan: Keep the patient off sedation, monitor neurologic function Asked neurology to reevaluate the patient CAT scan of the head and the neck and the chest was noted enteral feeding for nutritional support Free water supplements, to be increased to 200 every 4 hours as the patient developed a component of hypernatremia Fluids to half-normal saline at the rate of 75 mL an hour Monitor renal function Chest x-ray was reviewed Blood gases was reviewed Prednisone 40 mg by mouth daily Continue Lovenox Monitor inflammatory markers Critical condition We'll continue to follow critically care evaluation, more than 30 minutes. Time with Patient: Greater than 30
[2020-10-01] MEDS: ALBUTEROL HFA INHALER INHALATION SCH ×4 (06:56→20:00)
[2020-10-01] MEDS: SODIUM CHLORIDE 0.45% 1,000 ML IV SCH (07:05)
--- NOTE | 2020-10-01 07:39 | XR ---
EXAMINATION TYPE: XR chest 1V portable DATE OF EXAM: 10/01/2020 HISTORY: Shortness of breath. COMPARISON: 09/30/2020 TECHNIQUE: Single view of the chest is submitted. FINDINGS: Demonstrated are scattered senescent parenchymal change. Patchy perihilar and basilar infiltrates persist without significant change. Tracheostomy tube is in place. The heart is stable. Hilar and mediastinal structures are within normal limits. Degenerative changes are seen of the dorsal spine. IMPRESSION: 1. Patchy perihilar and basilar infiltrates persist without significant change.
[2020-10-01] MEDS: ASPIRIN 81 MG PO SCH (09:00)
[2020-10-01] MEDS: ATORVASTATIN 80 MG TAB PO SCH (09:00)
[2020-10-01] MEDS: ARTIFICIAL TEARS-HYPROMELLOSE DROPS 15 ML BTL BOTH EYES SCH ×4 (09:00→21:01)
[2020-10-01] MEDS: CHOLECALCIFEROL 25 MCG (1000 IU) TABLET PO SCH (09:00)
[2020-10-01] MEDS: amLODIPine 10 MG TAB PO SCH (09:00)
[2020-10-01] MEDS: ZINC SULFATE 220 MG CAP PO SCH (09:00)
[2020-10-01] MEDS: METOPROLOL TARTRATE 12.5 MG TAB PO SCH ×2 (09:00→21:02)
[2020-10-01] MEDS: FAMOTIDINE 20 MG TAB PO SCH ×2 (09:00→21:02)
[2020-10-01] MEDS: CHLORHEXIDINE GLUCONATE 15 ML CUP MUCOUS MEM SCH ×2 (09:00→21:02)
[2020-10-01] MEDS: ASCORBIC ACID 500 MG TAB PO SCH ×2 (09:00→21:03)
[2020-10-01] MEDS: LACTULOSE 20 GM/30 ML CUP PO SCH ×4 (09:00→21:02)
[2020-10-01] MEDS: predniSONE 20 MG TAB PO SCH (09:00)
[2020-10-01] MEDS: ENOXAPARIN 40 MG/0.4 ML SYRINGE SQ SCH (09:00)
[2020-10-01] MEDS: CLEVIDIPINE BUTYRATE 25 MG in EMPTY BAG 1 BAG IV SCH (10:59)
[2020-10-01 11:34] LABS: Glucose,Whole Blood 138 mg/dL (75-99)
--- NOTE | 2020-10-01 13:49 | P.PN ---
Subjective Progress Note Date: 10/01/20 CHIEF COMPLAINT: COVID-19 pneumonia HISTORY OF PRESENT ILLNESS: Patient is in the ICU and is intubated. He is status post tracheostomy and PEG tube placement. Patient is tolerating tube feedings. No residual reported. Patient is currently off of sedation and still not waking up. He did have computed tomography scan of the brain completed with age-related atrophic and chronic small vessel ischemic changes without acute intracranial process seen. Patient will be evaluated by neurology. Patient's nurse still reporting some bloody secretions around the tracheostomy site. Computed tomography scan of the neck shows tracheostomy tube in place without evidence for unusual adjacent collection. Overall CT of the neck with contrast is grossly unremarkable. Patient did have a temp of 100.4 WBC 22.7 hemoglobin 9.6 PHYSICAL EXAM: VITAL SIGNS: Reviewed. GENERAL: Well-developed in no acute distress. HEENT: Moist buccal mucosa. Head is atraumatic, normocephalic. Tracheostomy site with minimal bloody secretions ABDOMEN: Soft. Nondistended. Nontender. PEG tube site clean dry and intact NEUROLOGIC: Intubated ASSESSMENT: 1. Acute hypoxic respiratory failure due to COVID-19 pneumonia with prolonged mechanical ventilation status post tracheostomy placement 2. 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 Signing provider agrees with the documented findings, assessment, and plan of care. Objective - Vital Signs Vital signs: Vital Signs Temp 99.1 F 10/01/20 12:00 Pulse 64 10/01/20 12:00 Resp 32 H 10/01/20 12:00 BP 132/70 10/01/20 12:00 Pulse Ox 87 L 10/01/20 12:00 Intake & Output 09/30/20 10/01/20 10/01/20 18:59 06:59 18:59 Intake Total 254 1179.025 486 Output Total 605 505 145 Balance -351 674.025 341 Weight 103.1 kg 98.9 kg 98.9 kg Intake: IV 0 333 468 .45 450 0.9 NS 0 300 Pressure bag 33 18 Intake, IV Titration 48.025 Amount fentaNYL (PF). 1,000 mcg 48.025 In Sodium Chloride 0.9% 80 ml @ Per Protocol IV . Q0M [facility] Rx#:[id number] Tube Feeding 54 198 18 Other 200 600 Output: Urine 605 505 145 Other: Voiding Method Indwelling Catheter Indwelling Catheter Indwelling Catheter ABP, PAP, CO, CI - Last Documented Arterial Blood Pressure 41/40 - Labs CBC & Chem 7: 10/01/20 04:45 10/01/20 04:45 Labs: Abnormal Lab Results - Last 24 Hours (Table) 09/30/20 09/30/20 10/01/20 Range/Units 17:46 23:38 04:41 WBC (3.8-10.6) k/uL RBC (4.30-5.90) m/uL Hgb (13.0-17.5) gm/dL Hct (39.0-53.0) % RDW (11.5-15.5) % Neutrophils # (1.3-7.7) k/uL Lymphocytes # (1.0-4.8) k/uL D-Dimer (<0.60) mg/L FEU ABG pCO2 56 H (35-45) mmHg ABG pO2 62 L (83-108) mmHg ABG HCO3 32 H (21-25) mmol/L ABG Total CO2 33 H (19-24) mmol/L ABG O2 Saturation 91.4 L (94-97) % Sodium (137-145) mmol/L Chloride (98-107) mmol/L Carbon Dioxide (22-30) mmol/L BUN (9-20) mg/dL Creatinine (0.66-1.25) mg/dL Glucose (74-99) mg/dL POC Glucose (mg/dL) 168 H 158 H (75-99) mg/dL Calcium (8.4-10.2) mg/dL Lactate Dehydrogenase (313-618) U/L C-Reactive Protein (<1.0) mg/dL 10/01/20 10/01/20 10/01/20 Range/Units 04:45 04:45 04:45 WBC 22.7 H (3.8-10.6) k/uL RBC 3.17 L (4.30-5.90) m/uL Hgb 9.6 L (13.0-17.5) gm/dL Hct 30.6 L (39.0-53.0) % RDW 17.0 H (11.5-15.5) % Neutrophils # 21.2 H (1.3-7.7) k/uL Lymphocytes # 0.5 L (1.0-4.8) k/uL D-Dimer 3.48 H (<0.60) mg/L FEU ABG pCO2 (35-45) mmHg ABG pO2 (83-108) mmHg ABG HCO3 (21-25) mmol/L ABG Total CO2 (19-24) mmol/L ABG O2 Saturation (94-97) % Sodium 148 H (137-145) mmol/L Chloride 112 H (98-107) mmol/L Carbon Dioxide 32 H (22-30) mmol/L BUN 69 H (9-20) mg/dL Creatinine 1.31 H (0.66-1.25) mg/dL Glucose 105 H (74-99) mg/dL POC Glucose (mg/dL) (75-99) mg/dL Calcium 8.1 L (8.4-10.2) mg/dL Lactate Dehydrogenase 2244 H (313-618) U/L C-Reactive Protein 20.5 H (<1.0) mg/dL 10/01/20 10/01/20 Range/Units 04:49 11:32 WBC (3.8-10.6) k/uL RBC (4.30-5.90) m/uL Hgb (13.0-17.5) gm/dL Hct (39.0-53.0) % RDW (11.5-15.5) % Neutrophils # (1.3-7.7) k/uL Lymphocytes # (1.0-4.8) k/uL D-Dimer (<0.60) mg/L FEU ABG pCO2 (35-45) mmHg ABG pO2 (83-108) mmHg ABG HCO3 (21-25) mmol/L ABG Total CO2 (19-24) mmol/L ABG O2 Saturation (94-97) % Sodium (137-145) mmol/L Chloride (98-107) mmol/L Carbon Dioxide (22-30) mmol/L BUN (9-20) mg/dL Creatinine (0.66-1.25) mg/dL Glucose (74-99) mg/dL POC Glucose (mg/dL) 111 H 138 H (75-99) mg/dL Calcium (8.4-10.2) mg/dL Lactate Dehydrogenase (313-618) U/L C-Reactive Protein (<1.0) mg/dL Microbiology - Last 24 Hours (Table) 10/01/20 04:45 Wound Culture - Preliminary Abdomen 09/29/20 08:30 Gram Stain - Final Sputum Sputum Culture - Final Methicillin resist S. aureus
--- NOTE | 2020-10-01 15:07 | P.PN ---
Subjective Progress Note Date: 10/01/20 This is a 54-year-old male who was recently admitted with acute hypoxic respiratory failure secondary to COVID-19 pneumonia and is being closely monitored. Continues to remain on mechanical ventilation currently sedated. Patient has had prolonged hospitalization with unsuccessful attempts at weaning and surgery has been consulted for tracheostomy along with PEG tube placement. Patient was on D5 water for hypernatremia and will be discontinued. Tube feedings on hold for surgery today and will resume once PEG tube is okay for use. Per nursing staff patient has also been in the prone position since yesterday evening into this morning and tolerated. Amiodarone has also been discontinued as patient is currently bradycardic. Pulmonary ditto machine operator following closely. Patient is maintained on sliding scale and will monitor closely once tube feedings have resumed. 09/23/2020 Patient is seen in follow-up continues to be closely monitored in the ICU maintained on mechanical vent via tracheostomy as he underwent trach and PEG tube placement yesterday with surgery. Tube feedings to resume via PEG tube this afternoon after clearance from surgery. Chest x-ray today shows bilateral multifocal and confluent opacities left greater than right consistent with COVID-19 again redemonstrated with no significant change from yesterday. Pulmonary also following. White blood count at 20.9, hemoglobin is 11.3, current sodium is 138 with a potassium of 5.2, and creatinine is 0.83. 09/24/2020 Patient continues to be intubated and sedated in the ICU status post tracheostomy and PEG tube placement. Tube feedings have been resumed and patient is tolerating. Chest x-ray today shows continued patchy airspace infiltrates although there is interval improvement noted. Pulmonary following closely. White blood count slightly elevated at 23.2 patient is maintained on IV Solu-Medrol every 6 hours. Sodium 143 with a potassium of 5.0 and current creatinine is 0.84. 09/25/2020 Patient continues to be in the ICU on mechanical ventilation intubated via tracheostomy and continued on sedation and is being closely monitored. PEEP being titrated down slowly and patient continues on Nimbex along with propofol and fentanyl. White blood count on a downward trend 17.2 with hemoglobin of 9.7, sodium is 144 with a potassium of 4.9 and current creatinine is 0.95. FiO2 remains at 50 and maintaining 87 and 90% oxygen saturation. Social work also following and discussion with family about possible LTAC placement. 09/26/2020 Patient is seen in follow-up continues to be closely monitored in the ICU. Patient is off of Nimbex since yesterday and tolerating. Patient continues to be sedated and pulmonary ditto machine operator following closely and working on weaning FiO2 as tolerated. FiO2 has been decreased to 50 and PEEP continues at 17. Patient's calcium was low on this morning's labs at 4.9 and was given a dose of calcium gluconate. Patient labs this morning show sodium of 143 with a potassium of 3.5 and creatinine is 0.57, LDH is 1027, CRP is 8.7 and magnesium is 1.9. Continue with electrolyte replacement per protocol. His repeat potassium this afternoon as showing 6.0 may potentially be a hemolyzed sample and will redraw and monitor closely. Patient did receive that Braden supplementation from this morning's labs as it was 3.5. 09/27/2020 The patient remains on the mechanical ventilator. His vent settings include assist control mode, rate 32, tidal volume 420, FiO2 50%, and PEEP of 17. Arterial blood gases show pO2 61, pCO2 56, pH 7.38. The patient's currently on propofol at 35 mcg/kg/m, and fentanyl 1.5 mcg/kg per hour. The patient's getting saline at KVO, and tube feedings with Nepro at 25 mL an hour which is goal. Chest x-ray is stable. Shows bilateral diffuse infiltrates. White count 18.1, he will 9.7, hematocrit 30.2, platelet count 175,000. D-dimer is 1.27. Sodium 144, potassium 4.1, chlorides 118, CO2 27, BUN 42, creatinine 0.78. LDH is 1528, and C-reactive protein is 13.5. 09/28/2020 patient is seen in follow-up in the intensive care unit. HRemains intubated and on mechanical ventilator. He had undergone tracheostomy tube and PEG tube placements on 09/22/2020. He is sedated on propofol at 40 mcg/kg/m. Fentanyl at 1.5 mcg/mg per hour. 0.9 normal saline at KVO. He is being nourished with Nepro at 25 ML's per hour which is goal. Free water flushes at 30 MLS every 4 hours. He's had daily interruption of sedation. Once off sedation his blood pressure goes up to 200 systolic range. Today's chest x-ray reveals stable bilateral diffuse interstitial infiltrates. He has received 1 unit of convalescent plasma. Blood cultures reveal no growth. White count 15.5. Hemoglobin 8.8. Platelets 160. Sodium 142. Potassium 4.9. Creatinine 0.86. He has continued on Solu-Medrol, Lovenox, vitamin supplements. Prognosis remains guarded. 09/29/2020 Patient is seen in follow-up continues to be in the ICU intubated and sedated. Patient is off Nimbex with attempts at sedation holiday and having rebound blood pressure issues and placed on labetalol. Continues on IV Solu-Medrol along with vitamin and zinc supplements and Lovenox and will continue. FiO2 down to 50 and PEEP of 13. Pulmonary following closely. Patient continues with intermittent low-grade temps and elevated white count. D-dimer today is 1.57, sodium is 145, potassium is 4.6, current creatinine is 0.86. Inflammatory markers are elevated along with CRP and probe calcitonin. 09/30/2020 Patient is seen in follow-up currently remains in the ICU intubated and off sedation but no activity noted. Patient is not responding to commands and CT of the brain is ordered showing age-related atrophic and chronic small vessel ischemic change without any acute intracranial process along with the neck and chest CT continues to show groundglass opacities. Patient is off of labetalol and continues on that now. Propofol has been discontinued. Steroids transition to oral and given via PEG tube and continues on tube feedings which he is tolera ting. White blood count continues to be elevated at 21.7 and hemoglobin is 10.3, sodium is 147 and will increase free water flushes with tube feedings and monitor sodium closely. Potassium is 4.5. 10/01/2020 Patient continues to be closely monitored in the ICU and maintained off of sedation and remains unresponsive with very minimal brainstem reflexes otherwise not responding to painful stimulation or voice. Continue with free water flushes and monitor hypernatremia closely as sodium was elevated at 148 today. Continue with half normal saline at 75 ML per hour. D-dimer elevated at 3.48 today. White blood count also 22.7, hemoglobin is 9.6, creatinine elevated at 1.31, and sodium is 4.7. LDH slightly trending down at 2244 also CRP is up at 20.5. Chest x-ray today shows patchy. Hilar and basilar infiltrates persist without significant change. Will have neurology reevaluate the patient as he continues to be unresponsive and off sedation for 48 hours now. Review of systems: Unable to obtain as patient continues to be intubated and sedated Active Medications Acetaminophen (Acetaminophen Tab 325 Mg Tab) 650 mg PO Q6HR PRN PRN Reason: Fever and/ or Pain Last Admin: 09/16/20 11:48 Dose: 650 mg Documented by: Albuterol Sulfate (Albuterol Hfa Inhaler) 2 puff INHALATION RT-QID [facility] Last Admin: 10/01/20 11:04 Dose: 2 puff Documented by: Amlodipine Besylate (Amlodipine 10 Mg Tab) 10 mg PO DAILY [facility] Last Admin: 10/01/20 09:00 Dose: 10 mg Documented by: Artificial Tears (Artificial Tears-Hypromellose Drops 15 Ml Btl) 2 drops BOTH EYES QID [facility] Last Admin: 10/01/20 09:00 Dose: Not Given Documented by: Ascorbic Acid (Ascorbic Acid 500 Mg Tab) 500 mg PO BID [facility] Last Admin: 10/01/20 09:00 Dose: 500 mg Documented by: Aspirin (Aspirin 81 Mg) 81 mg PO DAILY [facility] Last Admin: 10/01/20 09:00 Dose: 81 mg Documented by: Atorvastatin Calcium (Atorvastatin 80 Mg Tab) 80 mg PO DAILY [facility] Last Admin: 10/01/20 09:00 Dose: 80 mg Documented by: Chlorhexidine Gluconate (Chlorhexidine Gluconate 15 Ml Cup) 15 ml MUCOUS MEM BID [facility] Last Admin: 10/01/20 09:00 Dose: 15 ml Documented by: Cholecalciferol (Cholecalciferol 25 Mcg (1000 Iu) Tablet) 125 mcg PO DAILY [facility] Last Admin: 10/01/20 09:00 Dose: 125 mcg Documented by: Enoxaparin Sodium (Enoxaparin 40 Mg/0.4 Ml Syringe) 40 mg SQ DAILY [facility] Last Admin: 10/01/20 09:00 Dose: 40 mg Documented by: Famotidine (Famotidine 20 Mg Tab) 20 mg PO BID [facility] Last Admin: 10/01/20 09:00 Dose: 20 mg Documented by: Heparin Sodium (Porcine) (Heparin Sodium 1,000 Un/Ml (10ml Vl)) 0 unit IV PER PROTOCOL PRN; Protocol PRN Reason: Low PTT Last Admin: 09/03/20 17:35 Dose: 4,900 unit Documented by: Clevidipine 25 mg/ IV Solution 50 mls @ 2 mls/hr IV .Q24H [facility]; Protocol Last Admin: 10/01/20 10:59 Dose: Not Given Documented by: Acetaminophen 1,000 mg/ IV (Solution) 100 mls @ 400 mls/hr IVPB Q6HR PRN PRN Reason: Fever and/ or Pain Stop: 10/01/20 18:14 Last Admin: 09/30/20 22:14 Dose: 400 mls/hr Documented by: Sodium Chloride (Saline 0.45%) 1,000 mls @ 75 mls/hr IV .[id number] [facility] Last Admin: 10/01/20 07:05 Dose: 75 mls/hr Documented by: Insulin Aspart (Insulin Aspart (Novolog) 100 Unit/Ml Vial) 0 unit SQ Q6HR [facility]; Protocol Last Admin: 10/01/20 05:57 Dose: Not Given Documented by: Lactulose (Lactulose 20 Gm/30 Ml Cup) 20 gm PO QID [facility] Last Admin: 10/01/20 09:00 Dose: 20 gm Documented by: Metoprolol Tartrate (Metoprolol Tartrate 12.5 Mg Tab) 12.5 mg PO BID [facility] Last Admin: 10/01/20 09:00 Dose: 12.5 mg Documented by: Nitroglycerin (Nitroglycerin Sl Tabs 0.4 Mg Tab) 0.4 mg SUBLINGUAL Q5M PRN PRN Reason: Chest Pain Last Admin: 09/07/20 03:35 Dose: 0.4 mg Documented by: Prednisone (Prednisone 20 Mg Tab) 40 mg PO DAILY [facility] Last Admin: 10/01/20 09:00 Dose: 40 mg Documented by: Promethazine HCl (Promethazine Hcl 6.25 Mg/5 Ml Cup) 12.5 mg PO QID PRN PRN Reason: Cough Last Admin: 09/06/20 02:07 Dose: 12.5 mg Documented by: Zinc Sulfate (Zinc Sulfate 220 Mg Cap) 220 mg PO DAILY [facility] Last Admin: 10/01/20 09:00 Dose: 220 mg Documented by: Objective - Vital Signs Vital signs: Vital Signs Temp 99.1 F 10/01/20 12:00 Pulse 64 10/01/20 12:00 Resp 32 H 10/01/20 12:00 BP 132/70 10/01/20 12:00 Pulse Ox 87 L 10/01/20 12:00 Intake & Output 09/30/20 10/01/20 10/01/20 18:59 06:59 18:59 Intake Total 254 1179.025 486 Output Total 605 505 145 Balance -351 674.025 341 Weight 103.1 kg 98.9 kg 98.9 kg Intake: IV 0 333 468 .45 450 0.9 NS 0 300 Pressure bag 33 18 Intake, IV Titration 48.025 Amount fentaNYL (PF). 1,000 mcg 48.025 In Sodium Chloride 0.9% 80 ml @ Per Protocol IV . Q0M [facility] Rx#:[id number] Tube Feeding 54 198 18 Other 200 600 Output: Urine 605 505 145 Other: Voiding Method Indwelling Catheter Indwelling Catheter Indwelling Catheter ABP, PAP, CO, CI - Last Documented Arterial Blood Pressure 41/40 - Exam Gen: This is a 54-year-old male currently intubated and off sedation with no activity noted. FiO2 decreased to 50, PEEP of 13 HEENT: Head is atraumatic, normocephalic. Sluggish pupils, Sclerae is anicteric. NECK: Supple. No JVD. No lymphadenopathy. No thyromegaly. Tracheostomy noted LUNGS: diminished breath sounds bilaterally with some scattered rhonchi and crackles noted. Tachypneic. No intercostal retractions. HEART: S1, S2 are muffled ABDOMEN: Soft. Obese. Bowel sounds are present. No masses. No tenderness. PEG tube noted EXTREMITIES: No pedal edema. No calf tenderness. NEUROLOGICAL: Unable to completely assess completely as patient is intubated and off sedation all remains unresponsive - Labs CBC & Chem 7: 10/01/20 04:45 10/01/20 04:45 Labs: Abnormal Lab Results - Last 24 Hours (Table) 09/30/20 09/30/20 10/01/20 Range/Units 17:46 23:38 04:41 WBC (3.8-10.6) k/uL RBC (4.30-5.90) m/uL Hgb (13.0-17.5) gm/dL Hct (39.0-53.0) % RDW (11.5-15.5) % Neutrophils # (1.3-7.7) k/uL Lymphocytes # (1.0-4.8) k/uL D-Dimer (<0.60) mg/L FEU ABG pCO2 56 H (35-45) mmHg ABG pO2 62 L (83-108) mmHg ABG HCO3 32 H (21-25) mmol/L ABG Total CO2 33 H (19-24) mmol/L ABG O2 Saturation 91.4 L (94-97) % Sodium (137-145) mmol/L Chloride (98-107) mmol/L Carbon Dioxide (22-30) mmol/L BUN (9-20) mg/dL Creatinine (0.66-1.25) mg/dL Glucose (74-99) mg/dL POC Glucose (mg/dL) 168 H 158 H (75-99) mg/dL Calcium (8.4-10.2) mg/dL Lactate Dehydrogenase (313-618) U/L C-Reactive Protein (<1.0) mg/dL 10/01/20 10/01/20 10/01/20 Range/Units 04:45 04:45 04:45 WBC 22.7 H (3.8-10.6) k/uL RBC 3.17 L (4.30-5.90) m/uL Hgb 9.6 L (13.0-17.5) gm/dL Hct 30.6 L (39.0-53.0) % RDW 17.0 H (11.5-15.5) % Neutrophils # 21.2 H (1.3-7.7) k/uL Lymphocytes # 0.5 L (1.0-4.8) k/uL D-Dimer 3.48 H (<0.60) mg/L FEU ABG pCO2 (35-45) mmHg ABG pO2 (83-108) mmHg ABG HCO3 (21-25) mmol/L ABG Total CO2 (19-24) mmol/L ABG O2 Saturation (94-97) % Sodium 148 H (137-145) mmol/L Chloride 112 H (98-107) mmol/L Carbon Dioxide 32 H (22-30) mmol/L BUN 69 H (9-20) mg/dL Creatinine 1.31 H (0.66-1.25) mg/dL Glucose 105 H (74-99) mg/dL POC Glucose (mg/dL) (75-99) mg/dL Calcium 8.1 L (8.4-10.2) mg/dL Lactate Dehydrogenase 2244 H (313-618) U/L C-Reactive Protein 20.5 H (<1.0) mg/dL 10/01/20 10/01/20 Range/Units 04:49 11:32 WBC (3.8-10.6) k/uL RBC (4.30-5.90) m/uL Hgb (13.0-17.5) gm/dL Hct (39.0-53.0) % RDW (11.5-15.5) % Neutrophils # (1.3-7.7) k/uL Lymphocytes # (1.0-4.8) k/uL D-Dimer (<0.60) mg/L FEU ABG pCO2 (35-45) mmHg ABG pO2 (83-108) mmHg ABG HCO3 (21-25) mmol/L ABG Total CO2 (19-24) mmol/L ABG O2 Saturation (94-97) % Sodium (137-145) mmol/L Chloride (98-107) mmol/L Carbon Dioxide (22-30) mmol/L BUN (9-20) mg/dL Creatinine (0.66-1.25) mg/dL Glucose (74-99) mg/dL POC Glucose (mg/dL) 111 H 138 H (75-99) mg/dL Calcium (8.4-10.2) mg/dL Lactate Dehydrogenase (313-618) U/L C-Reactive Protein (<1.0) mg/dL Microbiology - Last 24 Hours (Table) 10/01/20 04:45 Wound Culture - Preliminary Abdomen 09/29/20 08:30 Gram Stain - Final Sputum Sputum Culture - Final Methicillin resist S. aureus Assessment and Plan Assessment: -Acute hypoxic respiratory failure secondary to Covid 19 pneumonia, extensive interstitial pneumonia on mechanical ventilation -Status post PEG tube and tracheostomy placement -Acute lactic acidosis -Hypocalcemia -Atrial fibrillation with fast ventricular rate -Change in mental status, acute metabolic encephalopathy -Elevated random blood glucose -Hypernatremia -Hypertension -Elevated troponin possibly secondary to type II acute myocardial infarction secondary to hypoxemia and COVID-19 -History of gastroesophageal reflux disease -GI prophylaxis with Pepcid -DVT prophylaxis with Lovenox -Full code Recommendations and discussion: Recommend to continue with current medications and continue to monitor in the ICU as patient continues to be on mechanical vent intubated. Patient is off of sedation with no activity noted and underwent CT showing no acute process. Neurology to reevaluate the patient. Sodium continues to be elevated at 148 and increasing free water flushes via PEG tube along with restarting gentle IV hydration with half-normal saline and will repeat a.m. labs. Patient currently tracheostomy dependent. FiO2 is at 50 and a PEEP of 13. Weaning as tolerated per ditto machine operator. Continue with Accu-Cheks every 6 and sliding scale as needed. Employment Service Specialist following closely. Pulmonary following closely. Due to multiple complex medical issues, prognosis remains extremely guarded.
[2020-10-01 18:09] LABS: Glucose,Whole Blood 183 mg/dL (75-99)
[2020-10-01 23:20] LABS: Glucose,Whole Blood 127 mg/dL (75-99)
[2020-10-02] MEDS: INSULIN ASPART (NovoLOG) 100 UNIT/ML VIAL SQ SCH ×5 (00:56→23:35)
[2020-10-02 04:55] LABS: Glucose,Whole Blood 121 mg/dL (75-99)
[2020-10-02 05:20] LABS: Potassium 4.6 mmol/L (3.5-5.1)
[2020-10-02 05:22] LABS: ABG Base Excess 2.5 mmol/L; ABG HCO3 28 mmol/L (21-25); ABG Oxygen Saturation 93.1 % (94-97); ABG PCO2 51 mmHg (35-45); ABG PH 7.35 (7.35-7.45); ABG PO2 67 mmHg (83-108); ABG TCO2 30 mmol/L (19-24); Allen Test Performed? Yes
[2020-10-02 05:24] LABS: Anisocytosis Slight; Basophils % (A) 0 %; Eosinophils % (A) 0 %; HCT 32.5 % (39.0-53.0); HGB 10.2 gm/dL (13.0-17.5); Hypochromasia Slight; Lymphocytes # (A) 0.7 k/uL (1.0-4.8); Lymphocytes % (A) 3 %; MCH 30.3 pg (25.0-35.0); MCHC 31.3 g/dL (31.0-37.0); MCV 96.7 fL (80.0-100.0); Macrocytosis Slight; Mean Platelet Volume 9.5; Monocytes # (A) 0.6 k/uL (0-1.0); Monocytes % (A) 2 %; Neutrophils % (A) 95 %; Platelet Count 125 k/uL (150-450); RBC 3.36 m/uL (4.30-5.90); RDW 16.8 % (11.5-15.5); WBC 25.4 k/uL (3.8-10.6)
[2020-10-02 05:49] LABS: C Reactive Protein 20.4 mg/dL (<1.0)
--- NOTE | 2020-10-02 06:28 | XR ---
EXAMINATION TYPE: XR chest 1V portable DATE OF EXAM: 10/02/2020 CLINICAL HISTORY: Difficulty breathing and covid progress study. TECHNIQUE: Single AP portable semiupright view of the chest is obtained. COMPARISON: Chest x-ray from one day earlier and older studies FINDINGS: Stable tracheostomy tube. Stable left-sided PICC line. Right greater than left multifocal and confluent opacities redemonstrated with increased prominence right lung base from one day earlier. Cardiac silhouette size stable and within normal limits. Osseou s structures are intact. IMPRESSION: Right greater than left multifocal and confluent opacities consistent with covid-19 infec tion are redemonstrated. Worsening findings right lung base noted from one day earlier.
[2020-10-02] MEDS: ALBUTEROL HFA INHALER INHALATION SCH ×4 (07:06→19:02)
--- NOTE | 2020-10-02 07:47 | P.PN ---
Subjective Progress Note Date: 10/02/20 09/29/2020 the patient is being seen in follow-up. The patient is an acute hypoxic respiratory failure secondary to COVID-19 limited pneumonia. The patient is post intubation mechanical ventilation as of 09/12/2020. The patient undergone tracheostomy and PEG tube insertion 09/22/2020. During the course of the treatment, the patient received a combination of steroids, convalescent plasma and Tocilizumab. The patient continues to be on IV Solu-Medrol 40 mg IV every 8 hours. The patient is also on Lovenox 40 mg subcu to 24 hours. The LDH level from 09/27/2000 was 1528 and the patient's CRP level was 13.5. Renal function stable. The patient remains in intensive care unit and the patient is ventilator dependent. The patient remains on mechanical ventilator on assist control mode rate of 32 with a tidal volume of 420, fio2 50% with a PEEP of 13. The peak airway pressure is around 37. Static pressures around 33. He does have a foul-smelling odor from his mouth. He has a Bivona tracheostomy tube #7. Patient is sedated with propofol running at 40 mcg/kg per minute and fentanyl at 1.5 mg/kg/h. IV fluids are running at KVO and the patient is receiving enteral feeding for nutritional support utilizing Nepro 25 mL every 24 hours if the patient is also on Cleviprex for blood pressure control and he is off the medication. Chest x-ray showing but the pulmonary infiltrates involving the mid and lower lobes bilaterally quite dense and lower lobes. Patient's tracheostomy tube is in a good location. Hemodynamically stable on no pressors. Attempts to wean him off the sedation has failed and the patient became tachycardic and he has required Cleviprex on and off. Nevertheless, Cleviprex is made in become tachycardic. On 09/30/2020 by the patient is completely of sedation for the past 24 hours. Note that prior attempts to get this patient off sedation at failure the patient was developing an acute hypertensive reaction and ultimately I was able to get him off the propofol and fentanyl yesterday and he does have labetalol as a backup which was never used as the patient remained normotensive during the process. His been off sedation for at least 16 hours. Neurologically, significantly impaired, completely unresponsive, barely any cough or gag and limited particularly response. Does not respond to any verbal or painful stimulation. He remains on a mechanical ventilator. This morning he is an assist-control mode at the rate of 32 with a tidal volume of 420 and FiO2 of 50% with a PEEP of 13. The blood gases from today is still pending. Meanwhile, the chest x-ray shows essentially stable findings with a Bivona tracheostomy tube in place and there is still persistent but the pulmonary infiltrates, essentially unchanged compared to yesterday. Another issue is the halitosis as the patient has a bad odor coming from his mouth. There is some purulent secretions around the tracheostomy tube that was noted at the same time there is some bleeding this coming from his mouth and the patient has required frequent suctioning. I noted the canister and that is probably around 200 mL of bloody material collected since yesterday. His white cell count is at 21. The patient is on IV cefepime. Focused on is obtained from yesterday was 0.19. Otherwise, rest of the electrodes are showing a component of hyperchloremic hypernatremia. Sodium is at 147. Creatinine is 0.9. LDH from yesterday was 2371. The patient currently is IV Solu-Medrol 40 mg every 8 hours. The patient is also on Lovenox 40 mg subcu to 24 hours. As mentioned, his been off sedation and off paralytics. Enteral feeding for nutritional support is through Nepro via PEG tube at the rate of 18 mL an hour On 10/01/2020, the patient remains unresponsive despite being off sedation for 48 hours. He is off paralytics. He is off propofol. He is off fentanyl. Penicillin significant or reasonable neurological recovery yet. The patient has brainstem reflexes. Nevertheless, the patient is not responding to any painful stimulation. Does not respond to any verbal commands. Does not open up his eyes spontaneously. Does not move his extremities spontaneously. The CAT scan of the head that was done on 09/30/2020 showed age-related atrophy with chronic small vessel ischemic change without any acute process. He is on mechanical ventilator. He remains on assist control mode at the rate of 32 with a tidal volume of 420 and the respiratory rate of 32 with an FiO2 of 50% with a PEEP of 13. Blood gases from today showed a pH of 7.36 with a pCO2 of 56 with a pO2 of 62 and this is essentially the same as yesterday without any major interval change. Chest x-ray from today is showing diffuse bilateral pulmonary infiltrates, unchanged and the patient has a tracheostomy tube in place which is in the 1 tracheostomy tube #7. No evidence of any pneumothorax. He also CAT s can of the neck yesterday that showed tracheostomy tube in good location. The CAT scan of the neck was essentially on remarkable. The lungs showed patchy groundglass airspace disease bilaterally, he has slightly improved compared to the prior study. Small effusions were also noted. Mediastinum was essentially within normal limits. The patient's LDH level is at 2244 and a CRP level is at 20.5. Creatinine is at 1.3 which is a rise compared to yesterday and the White counts was a 22.7 with a hemoglobin of 9.6. He is currently on prednisone 40 mg by mouth daily. He is on Lovenox 40 mg subcu every 24 hours. His net fluid balance is -560 mL over the past 24 hours. Enteral feeding is in the form of Nepro at the rate of 80 mL an hour. He is also having IV fluids in the form of normal saline running at 75 mL an hour. Sodium level is 48 with a chloride level of 112. D-dimer level is at 3.48. 10/02/2020, the patient remains completely unresponsive. His been off sedatives and paralytics for the past 72 hours. No neurologic recovery. No responsiveness. He has a weak cough. Given her reflexes aren't impaired. Corneal reflexes are weak. Does not withdraw to painful stimulation. Does not have any spottiness eye-opening. Neurologic exam is essentially unchanged compared to yesterday. As of a neuro workup, the patient has already undergone a CAT scan of the brain that showed no acute abnormalities. Neurologic consultation be obtained based on his underlying unresponsiveness. EEG will be also obtained. He remains on a mechanical ventilator. This morning, he is on assist control mode at the rate of 32 with a tidal volume of 420 and a PEEP of 13 with an FiO2 of 50%. Chest x-ray showing some lateral lower lobe pulmonary infiltrates, and there is some worsening and infiltration on the right. The patient has a blood. This showed a pH of 7.35 with episodes of 51 and pO2 of 67. Protested troponin was mildly elevated at 0.19. The sputum was showing MRSA and there is a concern that the patient is developing a superinfection on a ventilator associated pneumonia knowing that there is a new infiltration in the right lower lobe and the patient has developed some new onset leukocytosis and a white cell count is currently up to 25.4. In terms of COVID-19 related pneumonia, the patient's d-dimer is at 3.6, LDH level is 2456 with a CRP of 20.4. The patient is currently on Lovenox 40 mg subcu on a daily basis and the patient is also on prednisone 40 mg oral. Since yesterday, the patient also has developed an acute kidney injury. Creatinine is up to 2. Urine output is not or that of 30 mL an hour and the net fluid balance over the past 24 hours has been +2 L. IV fluids running at a rate of 75 mL of half-normal saline. The sodium level is down to 144. BUN is at 96 with a creatinine of 2.08. Liver function tests have been essentially within normal limits. The patient is having diarrhea output has been ordered of 400 mL over the past 12 hours. He is currently receiving enteral feeding in the form of Nepro at the rate of 18 mL an hour. Objective - Vital Signs Vital signs: Vital Signs Temp 100.2 F H 10/02/20 04:00 Pulse 68 10/02/20 07:00 Resp 32 H 10/02/20 07:00 BP 109/62 10/02/20 07:00 Pulse Ox 93 L 10/02/20 07:00 Intake & Output 10/01/20 10/02/20 10/02/20 18:59 06:59 18:59 Intake Total 954 1734 96 Output Total 275 370 30 Balance 679 1364 66 Weight 98.9 kg 92.9 kg Intake: IV 936 936 78 .45 900 900 75 Pressure bag 36 36 3 Tube Feeding 18 198 18 Other 600 Output: Urine 275 370 30 Stool 0 Other: Voiding Method Indwelling Catheter Indwelling Catheter ABP, PAP, CO, CI - Last Documented Arterial Blood Pressure 127/53 - Exam GENERAL EXAM: Intubated, sedated 54-year-old gentleman, on mechanical ventilator current FiO2 50%, comfortable in no acute distress. The patient has a Bivona tracheostomy tube in place and is off sedation. Completely unresponsive and seems to be in a comatose state. HEAD: Normocephalic. EYES: Sluggish reaction of pupils, equal size. NOSE: Clear with pink turbinates. THROAT: No erythema or exudates. NECK: No masses, no JVD. CHEST: No chest wall deformity. LUNGS: Equal air entry with crackles in the bilateral posterior bases. CVS: S1 and S2 normal with no audible murmur, regular rhythm. ABDOMEN: No hepatosplenomegaly, normal bowel sounds, no guarding or rigidity. The PEG tube is in a good location. SPINE: No scoliosis or deformity SKIN: No rashes CENTRAL NERVOUS SYSTEM: Patient is completely unresponsive, pupils around to the 3 mm in size, sluggishly reactive to light, no corneal reflexes, very sluggish pupillary reflex, motor functions and all 4 extremities, does not withdraw to any painful stimulation. Neurologic exam remains unchanged. Brain Stem reflexes are present. Completely unresponsive. No significant change in his neuro status since yesterday. EXTREMITIES: There is no peripheral edema. No clubbing, no cyanosis. Peripheral pulses are intact. - Labs CBC & Chem 7: 10/02/20 05:00 10/02/20 05:00 Labs: Abnormal Lab Results - Last 24 Hours (Table) 10/01/20 10/01/20 10/01/20 Range/Units 11:32 18:07 23:19 WBC (3.8-10.6) k/uL RBC (4.30-5.90) m/uL Hgb (13.0-17.5) gm/dL Hct (39.0-53.0) % RDW (11.5-15.5) % Plt Count (150-450) k/uL Neutrophils # (1.3-7.7) k/uL Lymphocytes # (1.0-4.8) k/uL D-Dimer (<0.60) mg/L FEU ABG pCO2 (35-45) mmHg ABG pO2 (83-108) mmHg ABG HCO3 (21-25) mmol/L ABG Total CO2 (19-24) mmol/L ABG O2 Saturation (94-97) % Chloride (98-107) mmol/L BUN (9-20) mg/dL Creatinine (0.66-1.25) mg/dL Glucose (74-99) mg/dL POC Glucose (mg/dL) 138 H 183 H 127 H (75-99) mg/dL Calcium (8.4-10.2) mg/dL Lactate Dehydrogenase (313-618) U/L C-Reactive Protein (<1.0) mg/dL 10/02/20 10/02/20 10/02/20 Range/Units 04:53 05:00 05:00 WBC 25.4 H (3.8-10.6) k/uL RBC 3.36 L (4.30-5.90) m/uL Hgb 10.2 L (13.0-17.5) gm/dL Hct 32.5 L (39.0-53.0) % RDW 16.8 H (11.5-15.5) % Plt Count 125 L (150-450) k/uL Neutrophils # 24.0 H (1.3-7.7) k/uL Lymphocytes # 0.7 L (1.0-4.8) k/uL D-Dimer 3.63 H (<0.60) mg/L FEU ABG pCO2 (35-45) mmHg ABG pO2 (83-108) mmHg ABG HCO3 (21-25) mmol/L ABG Total CO2 (19-24) mmol/L ABG O2 Saturation (94-97) % Chloride (98-107) mmol/L BUN (9-20) mg/dL Creatinine (0.66-1.25) mg/dL Glucose (74-99) mg/dL POC Glucose (mg/dL) 121 H (75-99) mg/dL Calcium (8.4-10.2) mg/dL Lactate Dehydrogenase (313-618) U/L C-Reactive Protein (<1.0) mg/dL 10/02/20 10/02/20 Range/Units 05:00 05:17 WBC (3.8-10.6) k/uL RBC (4.30-5.90) m/uL Hgb (13.0-17.5) gm/dL Hct (39.0-53.0) % RDW (11.5-15.5) % Plt Count (150-450) k/uL Neutrophils # (1.3-7.7) k/uL Lymphocytes # (1.0-4.8) k/uL D-Dimer (<0.60) mg/L FEU ABG pCO2 51 H (35-45) mmHg ABG pO2 67 L (83-108) mmHg ABG HCO3 28 H (21-25) mmol/L ABG Total CO2 30 H (19-24) mmol/L ABG O2 Saturation 93.1 L (94-97) % Chloride 111 H (98-107) mmol/L BUN 96 H (9-20) mg/dL Creatinine 2.08 H (0.66-1.25) mg/dL Glucose 120 H (74-99) mg/dL POC Glucose (mg/dL) (75-99) mg/dL Calcium 8.0 L (8.4-10.2) mg/dL Lactate Dehydrogenase 2456 H (313-618) U/L C-Reactive Protein 20.4 H (<1.0) mg/dL Microbiology - Last 24 Hours (Table) 10/01/20 04:45 Gram Stain - Preliminary Abdomen Wound Culture - Preliminary 09/29/20 08:30 Gram Stain - Final Sputum Sputum Culture - Final Methicillin resist S. aureus Assessment and Plan Plan: 1 Acute hypoxemic respiratory failure secondary to COVID 19 pneumonitis. Required intubation on 09/12/2020. Had undergone tracheostomy and PEG tube placement on 09/22/2020. Did receive tocilizumab and convalescent plasma, remains currently on IV Solu-Medrol. The patient had diffuse breath and pulmonary infiltrates most on the lung bases bilaterally. PEEP currently is down to 13. The patient has been off sedation since yesterday and his been off sedation for the past 72 hours. Neurologically significantly impaired. The patient remains unresponsive. . The patient had prolonged intubation and prolonged use of sedative medications and paralytics. CAT scan of the brain was completed yesterday showing no acute abnormalities. There is atrophy and chronic small vessel ischemic change. He remains unresponsive. Based on reflexes are present, sluggish corneal and cough reflex was seen.. CAT scan of the chest is showing some diffuse bilateral groundglass pulmonary changes consistent with Covid activated pneumonia and this improved slightly. The patient remains on prednisone. Patient is also on Lovenox for DVT prophylaxis. For now remains his neurologic impairment and unresponsiveness. In fact, the patient remains comatose for the past 72 hours while being off sedation. 2 MRSA pneumonia, clinically suspected, consider a hospital-acquired/ventilator associated pneumonia. The patient has developed new onset leukocytosis in addition. 3 unresponsive, comatose state with present brainstem reflexes and absent cortical functions. CAT scan of the brain is essentially showing no acute abnormalities. 4 non-STEMI with troponin max of 6 6.5, echocardiogram with moderate concentric LVH 5 enteral feeding for nutritional support through a PEG tube. The patient is receiving enteral feeding for nutritional support via Nepro 6 acute kidney injury in the creatinine is up to 2 and the patient is in a fluids overload state with that fluid balance of +2 L over the past 24 hours 7 foul smelling odor from his mouth, halitosis along with some bleeding around the tracheostomy site. CAT scan of the neck shows no acute abnormalities. Tracheostomy tube is in good location and there are no neck or pharyngeal abscesses. 8 hypernatremia, sodium level is improving 9 History of hypertension. 10 acute leukocytosis 11 diarrhea and the patient is on lactulose. Rule out underlying significant c olitis. Plan: Keep the patient off sedation, monitor neurologic function remains comatose and unresponsive for the past 72 hours Asked neurology to reevaluate the patient Obtain EEG CAT scan of the brain results were noted Treatment MRSA pneumonia with Zyvox 600 mg IV every 12 hours, would avoid v ancomycin based on the underlying renal insufficiency/acute kidney injury Check a pro-calcitonin level Continue enteral feeding for nutritional support Stop lactulose Check stool for C. diff colitis Continue Nepro for enteral feeding Continue free water supplements per NG Continue half-normal saline at the rate of 75 mL an hour Consult nephrology Keep the patient prednisone 40 mg by mouth daily Check ammonia level and liver function tests and this can be added on today samples Monitor inflammatory markers Critical condition We'll continue to follow critically care evaluation, more than 30 minutes. Time with Patient: Greater than 30
[2020-10-02 08:49] LABS: ALT 289 U/L (4-49); AST 345 U/L (17-59)
[2020-10-02] MEDS: CHLORHEXIDINE GLUCONATE 15 ML CUP MUCOUS MEM SCH ×2 (08:58→20:01)
[2020-10-02] MEDS: predniSONE 20 MG TAB PO SCH (08:59)
[2020-10-02] MEDS: CHOLECALCIFEROL 25 MCG (1000 IU) TABLET PO SCH (08:59)
[2020-10-02] MEDS: ASPIRIN 81 MG PO SCH (08:59)
[2020-10-02] MEDS: FAMOTIDINE 20 MG TAB PO SCH (08:59)
[2020-10-02] MEDS: ENOXAPARIN 40 MG/0.4 ML SYRINGE SQ SCH (08:59)
[2020-10-02] MEDS: ATORVASTATIN 80 MG TAB PO SCH (08:59)
[2020-10-02] MEDS: METOPROLOL TARTRATE 12.5 MG TAB PO SCH ×2 (08:59→20:03)
[2020-10-02] MEDS: ASCORBIC ACID 500 MG TAB PO SCH ×2 (09:00→20:01)
[2020-10-02] MEDS: ZINC SULFATE 220 MG CAP PO SCH (09:00)
[2020-10-02] MEDS: LINEZOLID 600 MG in DEXTROSE/WATER 1 300ML.BAG IVPB SCH ×2 (09:01→20:01)
[2020-10-02] MEDS: amLODIPine 10 MG TAB PO SCH (09:01)
[2020-10-02] MEDS: ARTIFICIAL TEARS-HYPROMELLOSE DROPS 15 ML BTL BOTH EYES SCH ×4 (09:01→20:03)
[2020-10-02] MEDS ORDERED: ADENOSINE 3 MG/ML 2 ML VIAL IVP ONE (10:44)
[2020-10-02] MEDS ORDERED: DILTIAZEM 5 MG/ML 5 ML VIAL IVP STA (10:56)
[2020-10-02] MEDS: SODIUM CHLORIDE 0.45% 1,000 ML IV SCH ×3 (11:00→23:36)
[2020-10-02] MEDS ORDERED: DILTIAZEM 125 MG in SODIUM CHLORIDE 0.9% 100 ML IV SCH (11:00)
[2020-10-02] MEDS ORDERED: DILTIAZEM DRIP BOLUS FROM BAG 1 MG SOLN IV STA (11:01)
[2020-10-02 11:26] LABS: Glucose,Whole Blood 150 mg/dL (75-99)
[2020-10-02] MEDS ORDERED: SODIUM CHLORIDE 0.9% 1,000 ML IV ONE ×2 (11:33→11:34)
[2020-10-02] MEDS ORDERED: DEXTROSE 5% IN WATER 100 ML with AMIODARONE 150 MG IV ONE (11:45)
[2020-10-02] MEDS ORDERED: HEPARIN SODIUM 1,000 UN/ML (10ML VL) IV ONE (11:49)
[2020-10-02] MEDS ORDERED: HEPARIN SODIUM 1,000 UN/ML (10ML VL) IV PRN (11:49)
[2020-10-02] MEDS ORDERED: AMIODARONE 360 MG in DEXTROSE 5% IN WATER 200 ML IV ONE ×2 (12:00)
[2020-10-02] MEDS: HEPARIN SOD,PORK IN 0.45% NACL 25,000 UNIT in 0.45% NACL 1 250ML.BAG IV SCH (12:40)
--- NOTE | 2020-10-02 13:21 | P.PN ---
Subjective Progress Note Date: 10/02/20 CHIEF COMPLAINT: COVID-19 pneumonia HISTORY OF PRESENT ILLNESS: Patient is in the ICU and is intubated. He is status post tracheostomy and PEG tube placement. Patient is tolerating tube feedings. No residual reported. Patient is currently off of sedation and still not waking up. He had an EEG completed this morning and neurology is now on consult. He did have a bowel movement. No further drainage from the tracheostomy site. There is some drainage around the PEG tube site was sent for culture. Patient did have a temp of 100.2 WBC is 25.2 PHYSICAL EXAM: VITAL SIGNS: Reviewed. GENERAL: Well-developed in no acute distress. HEENT: Moist buccal mucosa. Head is atraumatic, normocephalic. Tracheostomy site clean dry and intact ABDOMEN: Soft. Nondistended. Nontender. PEG tube site with drainage noted NEUROLOGIC: Intubated ASSESSMENT: 1. Acute hypoxic respiratory failure due to COVID-19 pneumonia with prolonged mechanical ventilation status post tracheostomy placement 2. Moderate protein calorie malnutrition status post PEG tube placement PLAN: -Continue tube feedings -Continue supportive care -Continue ICU management Physician Throw Out Clerk note has been reviewed by physician. Signing provider agrees with the documented findings, assessment, and plan of care. Objective - Vital Signs Vital signs: Vital Signs Temp 98.6 F 10/02/20 08:00 Pulse 83 10/02/20 10:00 Resp 33 H 10/02/20 10:00 BP 122/60 10/02/20 10:00 Pulse Ox 93 L 10/02/20 10:00 Intake & Output 10/01/20 10/02/20 10/02/20 18:59 06:59 18:59 Intake Total 954 1734 534 Output Total 275 370 120 Balance 679 1364 414 Weight 98.9 kg 92.9 kg Intake: IV 936 936 312 .45 900 900 300 Pressure bag 36 36 12 Intake, IV Titration 150 Amount Linezolid 600 mg In 150 Dextrose/Water 1 300ml. bag @ 150 mls/hr IVPB Q12HR [facility] Rx#:[id number] Tube Feeding 18 198 72 Other 600 Output: Urine 275 370 120 Stool 0 Other: Voiding Method Indwelling Catheter Indwelling Catheter Indwelling Catheter ABP, PAP, CO, CI - Last Documented Arterial Blood Pressure 129/53 - Labs CBC & Chem 7: 10/02/20 05:00 10/02/20 05:00 Labs: Abnormal Lab Results - Last 24 Hours (Table) 10/01/20 10/01/20 10/02/20 Range/Units 18:07 23:19 04:53 WBC (3.8-10.6) k/uL RBC (4.30-5.90) m/uL Hgb (13.0-17.5) gm/dL Hct (39.0-53.0) % RDW (11.5-15.5) % Plt Count (150-450) k/uL Neutrophils # (1.3-7.7) k/uL Lymphocytes # (1.0-4.8) k/uL D-Dimer (<0.60) mg/L FEU ABG pCO2 (35-45) mmHg ABG pO2 (83-108) mmHg ABG HCO3 (21-25) mmol/L ABG Total CO2 (19-24) mmol/L ABG O2 Saturation (94-97) % Chloride (98-107) mmol/L BUN (9-20) mg/dL Creatinine (0.66-1.25) mg/dL Glucose (74-99) mg/dL POC Glucose (mg/dL) 183 H 127 H 121 H (75-99) mg/dL Calcium (8.4-10.2) mg/dL AST (17-59) U/L ALT (4-49) U/L Lactate Dehydrogenase (313-618) U/L C-Reactive Protein (<1.0) mg/dL 10/02/20 10/02/20 10/02/20 Range/Units 05:00 05:00 05:00 WBC 25.4 H (3.8-10.6) k/uL RBC 3.36 L (4.30-5.90) m/uL Hgb 10.2 L (13.0-17.5) gm/dL Hct 32.5 L (39.0-53.0) % RDW 16.8 H (11.5-15.5) % Plt Count 125 L (150-450) k/uL Neutrophils # 24.0 H (1.3-7.7) k/uL Lymphocytes # 0.7 L (1.0-4.8) k/uL D-Dimer 3.63 H (<0.60) mg/L FEU ABG pCO2 (35-45) mmHg ABG pO2 (83-108) mmHg ABG HCO3 (21-25) mmol/L ABG Total CO2 (19-24) mmol/L ABG O2 Saturation (94-97) % Chloride 111 H (98-107) mmol/L BUN 96 H (9-20) mg/dL Creatinine 2.08 H (0.66-1.25) mg/dL Glucose 120 H (74-99) mg/dL POC Glucose (mg/dL) (75-99) mg/dL Calcium 8.0 L (8.4-10.2) mg/dL AST (17-59) U/L ALT (4-49) U/L Lactate Dehydrogenase 2456 H (313-618) U/L C-Reactive Protein 20.4 H (<1.0) mg/dL 10/02/20 10/02/20 10/02/20 Range/Units 05:17 08:15 11:24 WBC (3.8-10.6) k/uL RBC (4.30-5.90) m/uL Hgb (13.0-17.5) gm/dL Hct (39.0-53.0) % RDW (11.5-15.5) % Plt Count (150-450) k/uL Neutrophils # (1.3-7.7) k/uL Lymphocytes # (1.0-4.8) k/uL D-Dimer (<0.60) mg/L FEU ABG pCO2 51 H (35-45) mmHg ABG pO2 67 L (83-108) mmHg ABG HCO3 28 H (21-25) mmol/L ABG Total CO2 30 H (19-24) mmol/L ABG O2 Saturation 93.1 L (94-97) % Chloride (98-107) mmol/L BUN (9-20) mg/dL Creatinine (0.66-1.25) mg/dL Glucose (74-99) mg/dL POC Glucose (mg/dL) 150 H (75-99) mg/dL Calcium (8.4-10.2) mg/dL AST 345 H (17-59) U/L ALT 289 H (4-49) U/L Lactate Dehydrogenase (313-618) U/L C-Reactive Protein (<1.0) mg/dL Microbiology - Last 24 Hours (Table) 10/01/20 04:45 Gram Stain - Preliminary Abdomen Wound Culture - Preliminary 09/29/20 08:30 Gram Stain - Final Sputum Sputum Culture - Final Methicillin resist S. aureus
--- NOTE | 2020-10-02 13:21 | P.PN ---
Subjective This is a pleasant 54-year-old male past medical history significant for hypertension, gout, GERD, former nicotine dependence and obesity. He has no documented prior history of coronary artery disease or arrhythmia. He is currently being treated for COVID 19 and maintained on mechanical ventilation. We saw him initially for elevated troponins and have been asked to see him again today due to new onset arrhythmia. Telemetry tracings indicate his heart rate went high this morning and was initially thought to be SVT. Adenosine was given and when he initially slowed down it became clear that he was in atrial flutter. Cardizem was initiated and his blood pressure could not tolerate so it was stopped. Heart rates continued in the 160's and Dr. Chin ordered a cardioversion. Currently he is in atrial fibrillation with heart rates between 90-110. Blood pressure 100/60. Laboratory data reviewed, WBC 25.4, hemoglobin 10.2, d-dimer 3.6, sodium 144, potassium 4.6, creatinine 2.08, C-reactive protein 20.4, lactate 2456. GENERAL: Maintained on mechanical ventilation, unresponsive NECK: Supple without JVD or thyromegaly. Dry blood noted around his mouth. EXTREMITIES: No edema. No clubbing or cyanosis. Peripheral pulses intact. ASSESSMENT New onset paroxysmal atrial fibrillation with rapid ventricular response Typical atrial flutter COVID 19 PLAN Initiate amiodarone bolus and drip. Initiate heparin for thromboembolic protection. Discontinue amlodipine secondary to hypotension, continue lopressor for rate control. Prognosis guarded. Nurse Practitioner note has been reviewed, I agree with a documented findings and plan of care. Patient was seen and examined. Objective - Vital Signs Vital signs: Vital Signs Temp 98.6 F 10/02/20 08:00 Pulse 83 10/02/20 10:00 Resp 33 H 10/02/20 10:00 BP 122/60 10/02/20 10:00 Pulse Ox 93 L 10/02/20 10:00 Intake & Output 10/01/20 10/02/20 10/02/20 18:59 06:59 18:59 Intake Total 954 1734 534 Output Total 275 370 120 Balance 679 1364 414 Weight 98.9 kg 92.9 kg Intake: IV 936 936 312 .45 900 900 300 Pressure bag 36 36 12 Intake, IV Titration 150 Amount Linezolid 600 mg In 150 Dextrose/Water 1 300ml. bag @ 150 mls/hr IVPB Q12HR [facility] Rx#:[id number] Tube Feeding 18 198 72 Other 600 Output: Urine 275 370 120 Stool 0 Other: Voiding Method Indwelling Catheter Indwelling Catheter Indwelling Catheter ABP, PAP, CO, CI - Last Documented Arterial Blood Pressure 129/53 - Labs CBC & Chem 7: 10/02/20 05:00 10/02/20 05:00 Labs: Abnormal Lab Results - Last 24 Hours (Table) 10/01/20 10/01/20 10/02/20 Range/Units 18:07 23:19 04:53 WBC (3.8-10.6) k/uL RBC (4.30-5.90) m/uL Hgb (13.0-17.5) gm/dL Hct (39.0-53.0) % RDW (11.5-15.5) % Plt Count (150-450) k/uL Neutrophils # (1.3-7.7) k/uL Lymphocytes # (1.0-4.8) k/uL D-Dimer (<0.60) mg/L FEU ABG pCO2 (35-45) mmHg ABG pO2 (83-108) mmHg ABG HCO3 (21-25) mmol/L ABG Total CO2 (19-24) mmol/L ABG O2 Saturation (94-97) % Chloride (98-107) mmol/L BUN (9-20) mg/dL Creatinine (0.66-1.25) mg/dL Glucose (74-99) mg/dL POC Glucose (mg/dL) 183 H 127 H 121 H (75-99) mg/dL Calcium (8.4-10.2) mg/dL AST (17-59) U/L ALT (4-49) U/L Lactate Dehydrogenase (313-618) U/L C-Reactive Protein (<1.0) mg/dL 10/02/20 10/02/20 10/02/20 Range/Units 05:00 05:00 05:00 WBC 25.4 H (3.8-10.6) k/uL RBC 3.36 L (4.30-5.90) m/uL Hgb 10.2 L (13.0-17.5) gm/dL Hct 32.5 L (39.0-53.0) % RDW 16.8 H (11.5-15.5) % Plt Count 125 L (150-450) k/uL Neutrophils # 24.0 H (1.3-7.7) k/uL Lymphocytes # 0.7 L (1.0-4.8) k/uL D-Dimer 3.63 H (<0.60) mg/L FEU ABG pCO2 (35-45) mmHg ABG pO2 (83-108) mmHg ABG HCO3 (21-25) mmol/L ABG Total CO2 (19-24) mmol/L ABG O2 Saturation (94-97) % Chloride 111 H (98-107) mmol/L BUN 96 H (9-20) mg/dL Creatinine 2.08 H (0.66-1.25) mg/dL Glucose 120 H (74-99) mg/dL POC Glucose (mg/dL) (75-99) mg/dL Calcium 8.0 L (8.4-10.2) mg/dL AST (17-59) U/L ALT (4-49) U/L Lactate Dehydrogenase 2456 H (313-618) U/L C-Reactive Protein 20.4 H (<1.0) mg/dL 10/02/20 10/02/20 10/02/20 Range/Units 05:17 08:15 11:24 WBC (3.8-10.6) k/uL RBC (4.30-5.90) m/uL Hgb (13.0-17.5) gm/dL Hct (39.0-53.0) % RDW (11.5-15.5) % Plt Count (150-450) k/uL Neutrophils # (1.3-7.7) k/uL Lymphocytes # (1.0-4.8) k/uL D-Dimer (<0.60) mg/L FEU ABG pCO2 51 H (35-45) mmHg ABG pO2 67 L (83-108) mmHg ABG HCO3 28 H (21-25) mmol/L ABG Total CO2 30 H (19-24) mmol/L ABG O2 Saturation 93.1 L (94-97) % Chloride (98-107) mmol/L BUN (9-20) mg/dL Creatinine (0.66-1.25) mg/dL Glucose (74-99) mg/dL POC Glucose (mg/dL) 150 H (75-99) mg/dL Calcium (8.4-10.2) mg/dL AST 345 H (17-59) U/L ALT 289 H (4-49) U/L Lactate Dehydrogenase (313-618) U/L C-Reactive Protein (<1.0) mg/dL Microbiology - Last 24 Hours (Table) 10/01/20 04:45 Gram Stain - Preliminary Abdomen Wound Culture - Preliminary 09/29/20 08:30 Gram Stain - Final Sputum Sputum Culture - Final Methicillin resist S. aureus
--- NOTE | 2020-10-02 13:44 | EEG ---
ELECTROENCEPHALOGRAM REPORT DATE OF SERVICE: 10/02/2020. PREAMBLE: This is a 54-year-old male who has COVID-19, with hypoxia and respiratory failure. The patient has been in the hospital for one month. The patient is in the ICU on trach and vent. The patient is not responsive. This study is performed to evaluate for any epileptiform activity. EEG FINDINGS: This is a 21 channel routine EEG recording in a patient utilizing 10/20 international system with referential and bipolar montages. The background consists of well- developed, poorly regulated, mixed frequencies of 4-5 hertz theta intermixed with 1-2 hertz delta activity in generalized distribution. Background does not seem to be reactive to eye opening or closing or to photic stimulation. Different stages of sleep were not seen. No focal or generalized epileptiform activity was seen. IMPRESSION: This is an abnormal EEG due to background slowing of at least moderate degree. This is suggestive of generalized cerebral dysfunction as can be seen with toxic metabolic encephalopathy or due to diffuse structural brain abnormality. No epileptiform activity was seen. MMODL / IJN: [id number] /
[2020-10-02] MEDS: PHENYLEPHRINE 40 MG in SODIUM CHLORIDE 0.9% 250 ML IV SCH (14:06)
--- NOTE | 2020-10-02 14:26 | P.PN ---
Subjective Progress Note Date: 10/02/20 This is a 54-year-old male who was recently admitted with acute hypoxic respiratory failure secondary to COVID-19 pneumonia and is being closely monitored. Continues to remain on mechanical ventilation currently sedated. Patient has had prolonged hospitalization with unsuccessful attempts at weaning and surgery has been consulted for tracheostomy along with PEG tube placement. Patient was on D5 water for hypernatremia and will be discontinued. Tube feedings on hold for surgery today and will resume once PEG tube is okay for use. Per nursing staff patient has also been in the prone position since yesterday evening into this morning and tolerated. Amiodarone has also been discontinued as patient is currently bradycardic. Pulmonary manager fiber following closely. Patient is maintained on sliding scale and will monitor closely once tube feedings have resumed. 09/23/2020 Patient is seen in follow-up continues to be closely monitored in the ICU maintained on mechanical vent via tracheostomy as he underwent trach and PEG tube placement yesterday with surgery. Tube feedings to resume via PEG tube this afternoon after clearance from surgery. Chest x-ray today shows bilateral multifocal and confluent opacities left greater than right consistent with COVID-19 again redemonstrated with no significant change from yesterday. Pulmonary also following. White blood count at 20.9, hemoglobin is 11.3, current sodium is 138 with a potassium of 5.2, and creatinine is 0.83. 09/24/2020 Patient continues to be intubated and sedated in the ICU status post tracheostomy and PEG tube placement. Tube feedings have been resumed and patient is tolerating. Chest x-ray today shows continued patchy airspace infiltrates although there is interval improvement noted. Pulmonary following closely. White blood count slightly elevated at 23.2 patient is maintained on IV Solu-Medrol every 6 hours. Sodium 143 with a potassium of 5.0 and current creatinine is 0.84. 09/25/2020 Patient continues to be in the ICU on mechanical ventilation intubated via tracheostomy and continued on sedation and is being closely monitored. PEEP being titrated down slowly and patient continues on Nimbex along with propofol and fentanyl. White blood count on a downward trend 17.2 with hemoglobin of 9.7, sodium is 144 with a potassium of 4.9 and current creatinine is 0.95. FiO2 remains at 50 and maintaining 87 and 90% oxygen saturation. Social work also following and discussion with family about possible LTAC placement. 09/26/2020 Patient is seen in follow-up continues to be closely monitored in the ICU. Patient is off of Nimbex since yesterday and tolerating. Patient continues to be sedated and pulmonary manager fiber following closely and working on weaning FiO2 as tolerated. FiO2 has been decreased to 50 and PEEP continues at 17. Patient's calcium was low on this morning's labs at 4.9 and was given a dose of calcium gluconate. Patient labs this morning show sodium of 143 with a potassium of 3.5 and creatinine is 0.57, LDH is 1027, CRP is 8.7 and magnesium is 1.9. Continue with electrolyte replacement per protocol. His repeat potassium this afternoon as showing 6.0 may potentially be a hemolyzed sample and will redraw and monitor closely. Patient did receive that Braden supplementation from this morning's labs as it was 3.5. 09/27/2020 The patient remains on the mechanical ventilator. His vent settings include assist control mode, rate 32, tidal volume 420, FiO2 50%, and PEEP of 17. Arterial blood gases show pO2 61, pCO2 56, pH 7.38. The patient's currently on propofol at 35 mcg/kg/m, and fentanyl 1.5 mcg/kg per hour. The patient's getting saline at KVO, and tube feedings with Nepro at 25 mL an hour which is goal. Chest x-ray is stable. Shows bilateral diffuse infiltrates. White count 18.1, he will 9.7, hematocrit 30.2, platelet count 175,000. D-dimer is 1.27. Sodium 144, potassium 4.1, chlorides 118, CO2 27, BUN 42, creatinine 0.78. LDH is 1528, and C-reactive protein is 13.5. 09/28/2020 patient is seen in follow-up in the intensive care unit. HRemains intubated and on mechanical ventilator. He had undergone tracheostomy tube and PEG tube placements on 09/22/2020. He is sedated on propofol at 40 mcg/kg/m. Fentanyl at 1.5 mcg/mg per hour. 0.9 normal saline at KVO. He is being nourished with Nepro at 25 ML's per hour which is goal. Free water flushes at 30 MLS every 4 hours. He's had daily interruption of sedation. Once off sedation his blood pressure goes up to 200 systolic range. Today's chest x-ray reveals stable bilateral diffuse interstitial infiltrates. He has received 1 unit of convalescent plasma. Blood cultures reveal no growth. White count 15.5. Hemoglobin 8.8. Platelets 160. Sodium 142. Potassium 4.9. Creatinine 0.86. He has continued on Solu-Medrol, Lovenox, vitamin supplements. Prognosis remains guarded. 09/29/2020 Patient is seen in follow-up continues to be in the ICU intubated and sedated. Patient is off Nimbex with attempts at sedation holiday and having rebound blood pressure issues and placed on labetalol. Continues on IV Solu-Medrol along with vitamin and zinc supplements and Lovenox and will continue. FiO2 down to 50 and PEEP of 13. Pulmonary following closely. Patient continues with intermittent low-grade temps and elevated white count. D-dimer today is 1.57, sodium is 145, potassium is 4.6, current creatinine is 0.86. Inflammatory markers are elevated along with CRP and probe calcitonin. 09/30/2020 Patient is seen in follow-up currently remains in the ICU intubated and off sedation but no activity noted. Patient is not responding to commands and CT of the brain is ordered showing age-related atrophic and chronic small vessel ischemic change without any acute intracranial process along with the neck and chest CT continues to show groundglass opacities. Patient is off of labetalol and continues on that now. Propofol has been discontinued. Steroids transition to oral and given via PEG tube and continues on tube feedings which he is tolera ting. White blood count continues to be elevated at 21.7 and hemoglobin is 10.3, sodium is 147 and will increase free water flushes with tube feedings and monitor sodium closely. Potassium is 4.5. 10/01/2020 Patient continues to be closely monitored in the ICU and maintained off of sedation and remains unresponsive with very minimal brainstem reflexes otherwise not responding to painful stimulation or voice. Continue with free water flushes and monitor hypernatremia closely as sodium was elevated at 148 today. Continue with half normal saline at 75 ML per hour. D-dimer elevated at 3.48 today. White blood count also 22.7, hemoglobin is 9.6, creatinine elevated at 1.31, and sodium is 4.7. LDH slightly trending down at 2244 also CRP is up at 20.5. Chest x-ray today shows patchy. Hilar and basilar infiltrates persist without significant change. Will have neurology reevaluate the patient as he continues to be unresponsive and off sedation for 48 hours now. 10/02/2020 Patient is seen in follow-up continues to be closely monitored in the ICU and also continues off sedation and continues to be unresponsive. EEG was done which was abnormal showing no epileptiform activity and some background slowing of at least moderate degree suggestive of generalized cerebral dysfunction as can be seen in toxic metabolic encephalopathy or due to diffuse structural brain abnormalities. Patient's sodium is 144 today with a potassium of 4.6 and creatinine worsening at 2.08 and continues on half normal saline. White blood count elevated at 25.4 and continues with low-grade intermittent temps and showing MRSA in the sputum and was started on Zyvox. Patient also having some possible SVT and was given adenosine although appears to be atrial flutter and Cardizem was initiated although having low blood pressures which was discontinued. Patient is now on amiodarone drip along with heparin drip and cardiology following. Review of systems: Unable to obtain as patient continues to be intubated and sedated Active Medications Acetaminophen (Acetaminophen Tab 325 Mg Tab) 650 mg PO Q6HR PRN PRN Reason: Fever and/ or Pain Last Admin: 09/16/20 11:48 Dose: 650 mg Documented by: Albuterol Sulfate (Albuterol Hfa Inhaler) 2 puff INHALATION RT-QID [facility] Last Admin: 10/02/20 11:02 Dose: Not Given Documented by: Artificial Tears (Artificial Tears-Hypromellose Drops 15 Ml Btl) 2 drops BOTH EYES QID [facility] Last Admin: 10/02/20 14:07 Dose: 2 drops Documented by: Ascorbic Acid (Ascorbic Acid 500 Mg Tab) 500 mg PO BID [facility] Last Admin: 10/02/20 09:00 Dose: 500 mg Documented by: Aspirin (Aspirin 81 Mg) 81 mg PO DAILY [facility] Last Admin: 10/02/20 08:59 Dose: 81 mg Documented by: Atorvastatin Calcium (Atorvastatin 80 Mg Tab) 80 mg PO DAILY [facility] Last Admin: 10/02/20 08:59 Dose: 80 mg Documented by: Chlorhexidine Gluconate (Chlorhexidine Gluconate 15 Ml Cup) 15 ml MUCOUS MEM BID [facility] Last Admin: 10/02/20 08:58 Dose: 15 ml Documented by: Cholecalciferol (Cholecalciferol 25 Mcg (1000 Iu) Tablet) 125 mcg PO DAILY [facility] Last Admin: 10/02/20 08:59 Dose: 125 mcg Documented by: Famotidine (Famotidine 20 Mg Tab) 20 mg PO DAILY [facility] Heparin Sodium (Porcine) (Heparin Sodium 1,000 Un/Ml (10ml Vl)) 0 unit IV PER PROTOCOL PRN; Protocol PRN Reason: Low PTT Sodium Chloride (Saline 0.45%) 1,000 mls @ 75 mls/hr IV .[id number] [facility] Last Admin: 10/02/20 11:00 Dose: 75 mls/hr Documented by: Linezolid 600 mg/ IV Solution 300 mls @ 150 mls/hr IVPB Q12HR [facility]; Protocol Last Admin: 10/02/20 09:01 Dose: 150 mls/hr Documented by: Amiodarone HCl 360 mg/ (Dextrose/Water) 200 mls @ 33.333 mls/hr IV .Q6H ONE; Protocol Stop: 10/02/20 17:59 Last Admin: 10/02/20 12:11 Dose: 1 mg/min, 33.333 mls/hr Documented by: Amiodarone HCl 450 mg/ (Dextrose/Water) 250 mls @ 16.667 mls/hr IV .Q15H [facility]; Protocol Stop: 10/03/20 11:59 Heparin Sodium/Sodium Chloride (25,000 unit/ Sodium Chloride) 250 mls @ 9.987 mls/hr IV .Q24H [facility]; Protocol Last Admin: 10/02/20 12:40 Dose: 10.75 units/kg/hr, 9.987 mls/hr Documented by: Phenylephrine HCl 40 mg/ (Sodium Chloride) 254 mls @ 17.697 mls/hr IV .[id number] [facility]; Protocol Last Admin: 10/02/20 14:06 Dose: Not Given Documented by: Insulin Aspart (Insulin Aspart (Novolog) 100 Unit/Ml Vial) 0 unit SQ Q6HR [facility]; Protocol Last Admin: 10/02/20 14:06 Dose: Not Given Documented by: Metoprolol Tartrate (Metoprolol Tartrate 12.5 Mg Tab) 12.5 mg PO BID [facility] Last Admin: 10/02/20 08:59 Dose: 12.5 mg Documented by: Nitroglycerin (Nitroglycerin Sl Tabs 0.4 Mg Tab) 0.4 mg SUBLINGUAL Q5M PRN PRN Reason: Chest Pain Last Admin: 09/07/20 03:35 Dose: 0.4 mg Documented by: Prednisone (Prednisone 20 Mg Tab) 40 mg PO DAILY [facility] Last Admin: 10/02/20 08:59 Dose: 40 mg Documented by: Promethazine HCl (Promethazine Hcl 6.25 Mg/5 Ml Cup) 12.5 mg PO QID PRN PRN Reason: Cough Last Admin: 09/06/20 02:07 Dose: 12.5 mg Documented by: Zinc Sulfate (Zinc Sulfate 220 Mg Cap) 220 mg PO DAILY [facility] Last Admin: 10/02/20 09:00 Dose: 220 mg Documented by: Objective - Vital Signs Vital signs: Vital Signs Temp 100.2 F H 10/02/20 04:00 Pulse 68 10/02/20 07:00 Resp 32 H 10/02/20 07:00 BP 109/62 10/02/20 07:00 Pulse Ox 93 L 10/02/20 07:00 Intake & Output 10/01/20 10/02/20 10/02/20 18:59 06:59 18:59 Intake Total 954 1734 96 Output Total 275 370 30 Balance 679 1364 66 Weight 98.9 kg 92.9 kg Intake: IV 936 936 78 .45 900 900 75 Pressure bag 36 36 3 Tube Feeding 18 198 18 Other 600 Output: Urine 275 370 30 Stool 0 Other: Voiding Method Indwelling Catheter Indwelling Catheter ABP, PAP, CO, CI - Last Documented Arterial Blood Pressure 127/53 - Exam Gen: This is a 54-year-old male currently intubated and off sedation with no activity noted. FiO2 decreased to 50, PEEP of 13 HEENT: Head is atraumatic, normocephalic. Sluggish pupils, Sclerae is anicteric. Oral mucosa is dry and crusted NECK: Supple. No JVD. No lymphadenopathy. No thyromegaly. Tracheostomy noted LUNGS: diminished breath sounds bilaterally with some scattered rhonchi and crackles noted. Tachypneic. No intercostal retractions. HEART: S1, S2 are muffled, irregular ABDOMEN: Soft. Obese. Bowel sounds are present. No masses. No tenderness. PEG tube noted EXTREMITIES: No pedal edema. No calf tenderness. NEUROLOGICAL: Unable to completely assess completely as patient is intubated and off sedation all remains unresponsive - Labs CBC & Chem 7: 10/02/20 05:00 10/02/20 05:00 Labs: Abnormal Lab Results - Last 24 Hours (Table) 10/01/20 10/01/20 10/01/20 Range/Units 11:32 18:07 23:19 WBC (3.8-10.6) k/uL RBC (4.30-5.90) m/uL Hgb (13.0-17.5) gm/dL Hct (39.0-53.0) % RDW (11.5-15.5) % Plt Count (150-450) k/uL Neutrophils # (1.3-7.7) k/uL Lymphocytes # (1.0-4.8) k/uL D-Dimer (<0.60) mg/L FEU ABG pCO2 (35-45) mmHg ABG pO2 (83-108) mmHg ABG HCO3 (21-25) mmol/L ABG Total CO2 (19-24) mmol/L ABG O2 Saturation (94-97) % Chloride (98-107) mmol/L BUN (9-20) mg/dL Creatinine (0.66-1.25) mg/dL Glucose (74-99) mg/dL POC Glucose (mg/dL) 138 H 183 H 127 H (75-99) mg/dL Calcium (8.4-10.2) mg/dL Lactate Dehydrogenase (313-618) U/L C-Reactive Protein (<1.0) mg/dL 10/02/20 10/02/20 10/02/20 Range/Units 04:53 05:00 05:00 WBC 25.4 H (3.8-10.6) k/uL RBC 3.36 L (4.30-5.90) m/uL Hgb 10.2 L (13.0-17.5) gm/dL Hct 32.5 L (39.0-53.0) % RDW 16.8 H (11.5-15.5) % Plt Count 125 L (150-450) k/uL Neutrophils # 24.0 H (1.3-7.7) k/uL Lymphocytes # 0.7 L (1.0-4.8) k/uL D-Dimer 3.63 H (<0.60) mg/L FEU ABG pCO2 (35-45) mmHg ABG pO2 (83-108) mmHg ABG HCO3 (21-25) mmol/L ABG Total CO2 (19-24) mmol/L ABG O2 Saturation (94-97) % Chloride (98-107) mmol/L BUN (9-20) mg/dL Creatinine (0.66-1.25) mg/dL Glucose (74-99) mg/dL POC Glucose (mg/dL) 121 H (75-99) mg/dL Calcium (8.4-10.2) mg/dL Lactate Dehydrogenase (313-618) U/L C-Reactive Protein (<1.0) mg/dL 10/02/20 10/02/20 Range/Units 05:00 05:17 WBC (3.8-10.6) k/uL RBC (4.30-5.90) m/uL Hgb (13.0-17.5) gm/dL Hct (39.0-53.0) % RDW (11.5-15.5) % Plt Count (150-450) k/uL Neutrophils # (1.3-7.7) k/uL Lymphocytes # (1.0-4.8) k/uL D-Dimer (<0.60) mg/L FEU ABG pCO2 51 H (35-45) mmHg ABG pO2 67 L (83-108) mmHg ABG HCO3 28 H (21-25) mmol/L ABG Total CO2 30 H (19-24) mmol/L ABG O2 Saturation 93.1 L (94-97) % Chloride 111 H (98-107) mmol/L BUN 96 H (9-20) mg/dL Creatinine 2.08 H (0.66-1.25) mg/dL Glucose 120 H (74-99) mg/dL POC Glucose (mg/dL) (75-99) mg/dL Calcium 8.0 L (8.4-10.2) mg/dL Lactate Dehydrogenase 2456 H (313-618) U/L C-Reactive Protein 20.4 H (<1.0) mg/dL Microbiology - Last 24 Hours (Table) 10/01/20 04:45 Gram Stain - Preliminary Abdomen Wound Culture - Preliminary 09/29/20 08:30 Gram Stain - Final Sputum Sputum Culture - Final Methicillin resist S. aureus Assessment and Plan Assessment: -Acute hypoxic respiratory failure secondary to Covid 19 pneumonia, extensive interstitial pneumonia on mechanical ventilation -Status post PEG tube and tracheostomy placement -Atrial flutter -Sputum growing MRSA -Continued fevers -Leukocytosis -Acute lactic acidosis -Hypocalcemia -Atrial fibrillation with fast ventricular rate -Change in mental status, acute metabolic encephalopathy -Elevated random blood glucose -Hypernatremia -Hypertension -Elevated troponin possibly secondary to type II acute myocardial infarction secondary to hypoxemia and COVID-19 -History of gastroesophageal reflux disease -GI prophylaxis with Pepcid -DVT prophylaxis with Lovenox -Full code Recommendations and discussion: Recommend to continue with current medications and continue to monitor in the ICU as patient continues to be on mechanical vent intubated. Patient is off of sedation with no activity noted and underwent CT showing no acute process. Neurology to reevaluate the patient. EEG was abnormal. Cardiology consulted again for atrial flutter and placed on amiodarone drip along with heparin drip. Patient was initiated on Cardizem although unable to tolerate due to hypotension. Sodium continues to be elevated at 144 and increasing free water flushes via PEG tube along with continuing gentle IV hydration with half-normal saline and will repeat a.m. labs. Patient currently tracheostomy dependent. FiO2 is at 50 and a PEEP of 13. Weaning as tolerated per manager fiber. Continue with Accu-Cheks every 6 and sliding scale as needed. [place] following closely. Pulmonary following closely. Due to multiple complex medical issues, prognosis remains extremely poor and guarded.
--- NOTE | 2020-10-02 15:07 | CDI ---
Documentation Clarification Form Date: 10/02/2020 02:42:09 PM From: Shanice Berg CCS, CCDS Admit Date: 09/03/2020 02:49:00 AM Patient Name: Tavo Isaacs Visit Number: [id number] Discharge Date: ATTENTION: The Clinical Documentation Specialists (CDI) and [facility] Coding Staff appreciate your assistance in clarifying documentation. Please respond to the clarification below the line at the bottom and electronically sign. The CDI & [facility] Coding staff will review the response and follow-up if needed. Please note: Queries are made part of the Legal Health Record. If you have any questions, please contact the author of this message via ITS. Dr. Дмитрий Sandhu: The patient presented with the following clinical indicators. Additional clarification regarding the etiology/cause of the clinical indicators is requested. History/Risk Factors per the 09/03 ED Note History of Present Illness: Hypertension, Former smoker. Clinical Indicators: Presented to the ED on 09/03 via EMS with SOB. Recently diagnosed with COVID (about 2 weeks ago), now has increased dyspnea, body aces & chills. In significant respiratory distress and hypoxic on arrival. Initially placed on O2 and then Airvo in ED. Admit with ARDS, Hypoxia, COVID 19 virus, Pneumonia due to COVID 19 and Elevated troponin. 09/03 VS: T 98.1, P 98, R 40 - 28, BP 144/87, PO 86 on 15% nrb - high flow 60^ - PO 94 100% BiPAP, BMI: 31.1 09/02 LAB: WBC 33.1, Neut 28.70, Lymph 1.32, [place] 2.32, [place] 0.66, Myelo 0.33, Promyelo 0.33, Nucleated RBCs 2; APTT 18.6, D Dimer >35.20; CO2 16, BUN 35, Glucose 180, Lactic Acid 4.5, 06/30; Mag 2.9, Ferritin 2033.0, Total Bili 1.6, AST 107, LDH 5924, Troponin 4.190 - 6.590; CRP 180.3, Procalcitonin 0.33. 09/09 Scanned COVID test from 08/28: Positive. 09/02 CXR: Bilateral interstitial pneumonia. 09/13 VS: T 96.5, P 90, R 38 - 40 (SOB, labored, cough, shallow, tachypnea), BP 194/89, PO 77 on BiPAP, patient intubated. 09/14 LAB: WBC 21.5, Pl Ct 69, Ferritin 1480.2, LDH 2293, CRP 5.2 Cultures: 09/02: Blood cultures x2: final: negative 09/29 Sputum culture: final: MRSA. 10/01 Wound culture: preliminary. Treatment 09/02 - 09/03: IV Solumedrol 125 mg x1, IV fluid 1,000 mls @ 999 mls/hr q31M, po Vit C, po Vit D3, IV Decadron daily, Lovenox sq, po Orazinc daily, IV Actemra, INH Ventolin QID, IV Heparin. TPN started 09/10. Per 09/09 IR Procedure Note: PICC line for infection requiring annabel-term antibiotic therapy. 09/13: Intubated. 10/02: Patient remains intubated with Trach/PEG, comatose. In your professional opinion, please clarify if these findings signify one of the following conditions: [ ] Sepsis POA, please specify cause: [ ] Sepsis, Not POA [ ] Severe Sepsis with organ failure [ ] Other, please specify [ ] Unable to determine (Template Last Reviewed: June 2020) Sepsis POA due to Covid MTDD
[2020-10-02] MEDS: AMIODARONE 450 MG in DEXTROSE 5% IN WATER 250 ML IV SCH ×2 (18:01)
[2020-10-02 18:32] LABS: Glucose,Whole Blood 165 mg/dL (75-99)
--- NOTE | 2020-10-02 20:01 | P.CNNES ---
History of Present Illness Consult date: 10/02/20 Requesting physician: Moraima Schwartz Reason for Consult: Comatose History of Present Illness: Patient is a 54-year-old male came to the hospital actually on 09/02/2020 by ambulance for dyspnea, as he was diagnosed with Covid about 2 weeks prior. He had developed progressive dyspnea. Patient was noted to be in distress, t herefore placed on Airvo. Patient underwent intubation with mechanical ventilation on 09/12/2020. Patient has subsequently undergone tracheostomy and PICC placement on 09/22/2020. Patient has received combination of steroids, convalescent plasma and Tocilizumab. Patient has been on Solu-Medrol 40 mg IV 8 hours. Also on Lovenox. Patient has been ventilator dependent. Patient remains completely unresponsive. He is off sedatives and paralytics for the past 72 hours. No signs of neurologic recovery. Patient has a weak cough. Corneal reflexes are weak. Chest x-ray showing some lateral lower lobe pulmonary infiltrates and there is some worsening and infiltration on the right. Neurology was consulted for evaluation of neuro status. Patient's most recent blood test shows WBC 25.4, hemoglobin 10.2, platelets 125. His ABG shows pH 7.35, pO2 67, pCO2 51 and saturation 93.1. Sodium and potassium are normal. BUN is 96, creatinine 2.08. AST is 345, ALT 289. LDH is elevated 2456. CRP is 20.4. Overall hepatic functions have gotten worse today as compared to the hepatic panel from 09/24/2020. Patient's renal functions are worsening. Ammonia is normal 25. Troponin is elevated 6.59 as a 09/03/2020. Patient's chest x-ray showed right greater than left multifocal and confluent opacities consistent with Covid-19 infection. Worsening findings right lung base noted from one day earlier. CT head 09/30/2020 showed age-related atrophic and chronic small vessel ischemic changes without any acute process. CT of the chest from 09/30/2020 showed patchy groundglass airspace infiltrates seen bilaterally slightly improved from prior study. Small effusions. Patient has developed new onset atrial flutter. Patient was placed on heparin infusion. Review of Systems ROS unobtainable: due to endotracheal tube, due to mental status Past Medical History Past Medical History: GERD/Reflux, Hypertension Additional Past Medical History / Comment(s): Pt states he tested covid + a week ago at [facility]. Other hx: Gout History of Any Multi-Drug Resistant Organisms: MRSA Date of last positivie culture/infection: 09/29/20 MDRO Source:: MRSA SPUTUM Past Surgical History: No Surgical Hx Reported Additional Past Surgical History / Comment(s): Colonoscopy Past Anesthesia/Blood Transfusion Reactions: No Reported Reaction Smoking Status: Former smoker - Past Family History Mother Family Medical History: No Reported History Additional Family Medical History / Comment(s): Mother is healthy Father Family Medical History: Cancer Additional Family Medical History / Comment(s): Kidney and liver cancer. Medications and Allergies Home Medications Medication Instructions Recorded Confirmed Type Albuterol Inhaler [Ventolin Hfa 2 puff INHALATION RT-QID PRN 09/02/20 09/02/20 History Inhaler] Azithromycin [Zithromax Z-pack (6 See Taper PO DIRECTED 09/02/20 09/02/20 History tabs)] Dexamethasone [Decadron] 3 mg PO BID 09/02/20 09/02/20 History Promethazine 6.25MG/5Ml [Phenergan 12.5 mg PO QID PRN 09/02/20 09/02/20 History Syrup] allopurinoL [Zyloprim] 300 mg PO DAILY 09/02/20 09/02/20 History amLODIPine [Norvasc] 10 mg PO DAILY 09/02/20 09/02/20 History Allergies Allergy/AdvReac Type Severity Reaction Status Date / Time No Known Allergies Allergy Verified 09/02/20 22:38 Physical Examination - Vital Signs Vital Signs: Vital Signs Temp Pulse Resp BP Pulse Ox 10/02/20 13:15 62 32 H 98/61 92 L 10/02/20 13:00 99 32 H 100/57 92 L 10/02/20 12:45 106 H 32 H 91 L 10/02/20 12:30 113 H 32 H 93 L 10/02/20 12:15 109 H 32 H 91 L 10/02/20 12:00 111 H 32 H 77/53 91 L 10/02/20 11:45 161 H 32 H 77/53 92 L 10/02/20 11:30 161 H 32 H 77/53 94 L 10/02/20 11:15 165 H 33 H 98/61 91 L 10/02/20 11:00 165 H 34 H 113/68 93 L 10/02/20 10:45 172 H 20 113/68 92 L 10/02/20 10:30 74 33 H 113/68 93 L 10/02/20 10:15 73 33 H 113/68 93 L 10/02/20 10:00 83 33 H 122/60 93 L 10/02/20 09:00 71 33 H 105/61 93 L 10/02/20 08:00 98.6 F 68 32 H 120/61 92 L 10/02/20 07:00 68 32 H 109/62 93 L 10/02/20 06:00 67 32 H 97/61 93 L 10/02/20 05:00 81 21 118/58 92 L 10/02/20 04:00 100.2 F H 83 32 H 114/61 91 L 10/02/20 03:00 75 32 H 106/59 92 L 10/02/20 02:00 92 32 H 110/61 91 L 10/02/20 01:00 73 37 H 100/63 90 L 10/02/20 00:00 100 F H 65 35 H 100/58 89 L 10/01/20 23:00 70 32 H 97/58 89 L 10/01/20 22:00 68 32 H 103/58 89 L 10/01/20 21:00 74 33 H 110/56 86 L 10/01/20 20:00 99.9 F H 67 35 H 127/63 85 L 10/01/20 19:00 80 33 H 121/61 89 L 10/01/20 18:00 86 32 H 127/63 87 L 10/01/20 17:00 67 32 H 122/60 86 L 10/01/20 16:00 99.0 F 67 33 H 119/63 86 L 10/01/20 15:00 63 32 H 123/65 86 L 10/01/20 14:00 65 33 H 124/60 87 L Intake and Output 10/01/20 10/02/20 10/02/20 22:59 06:59 14:59 Intake Total 878 1168 2120 Output Total 210 270 175 Balance 219 496 1307 Intake: IV 624 624 462 .45 600 600 450 Pressure bag 24 24 12 Intake, IV Titration 1150 Amount Linezolid 600 mg In 150 Dextrose/Water 1 300ml. bag @ 150 mls/hr IVPB Q12HR [facility] Rx#:[id number] Sodium Chloride 0.9% 1, 1000 000 ml @ 999 mls/hr IV . Q1H1M ONE Rx#:[id number] Tube Feeding 54 144 108 Other 200 400 400 Output: Urine 210 270 175 Stool 0 Other: Voiding Method Indwelling Catheter Indwelling Catheter Indwelling Catheter Weight 92.9 kg ABP, PAP, CO, CI - Last 8 Hours Arterial Blood Pressure 114/52 Arterial Blood Pressure 91/55 Arterial Blood Pressure 90/53 Arterial Blood Pressure 100/54 Arterial Blood Pressure 93/49 Arterial Blood Pressure 95/44 Arterial Blood Pressure 71/36 Arterial Blood Pressure 63/34 Arterial Blood Pressure 92/44 Arterial Blood Pressure 110/52 Arterial Blood Pressure 117/59 Arterial Blood Pressure 146/59 Arterial Blood Pressure 138/58 Arterial Blood Pressure 129/53 Arterial Blood Pressure 124/53 Arterial Blood Pressure 128/52 Arterial Blood Pressure 127/53 Arterial Blood Pressure 123/53 On examination patient is a middle aged male, who is almost comatose, not responding to any stimuli. Patient has been off Nimbex since 09/25/2020. He was on this for 2 weeks prior. Patient is also off propofol and fentanyl since 09/29/2020. Currently not on any sedation. Patient has tracheostomy, connected to mechanical ventilator. Patient does breathe minimally over the ventilator. Pupils are round and reacting. Oculocephalics are slightly present. Corneals are minimally present. Patient did not respond to calling his name. Did not respond to noxious stimuli, although when pupils were being checked, patient did open his eyes partially with a blank stare, with no tra cking, or any eye contact. Patient does not follow any commands. Patient has no gag or cough as per nursing report. No seizure-like activity noted. Reflexes are diminished, plantars are flat. GCS score of 4. Patient has peripheral edema. Abdomen is soft. Results - Laboratory Findings CBC and BMP: 10/02/20 05:00 10/02/20 05:00 Abnormal Lab Findings: Abnormal Labs 09/02/20 09/02/20 09/02/20 21:41 21:41 21:41 WBC 33.1 H RBC Hgb Hct RDW Plt Count Neutrophils # Neutrophils # (Manual) 28.70 H Lymphocytes # Monocytes # Monocytes # (Manual) 2.32 H Metamyelocytes # (Man) 0.66 H Myelocytes # (Manual) 0.33 H Promyelocytes # (Man) 0.33 H Nucleated RBCs 2 H APTT 18.6 L D-Dimer >35.20 H ABG pH ABG pCO2 ABG pO2 ABG HCO3 ABG Total CO2 ABG O2 Saturation Sodium Potassium Chloride Carbon Dioxide 16 L BUN 35 H Creatinine Glucose 180 H POC Glucose (mg/dL) Plasma Lactic Acid Raymond Calcium Phosphorus Magnesium 2.9 H Ferritin 2033.0 H Total Bilirubin 1.6 H AST 107 H ALT Alkaline Phosphatase Lactate Dehydrogenase 5924 H Troponin I C-Reactive Protein 180.3 H Total Protein Albumin Triglycerides Procalcitonin Urine Protein Amorphous Sediment Hyaline Casts Urine Mucus 09/02/20 09/02/20 09/02/20 21:41 21:41 21:41 WBC RBC Hgb Hct RDW Plt Count Neutrophils # Neutrophils # (Manual) Lymphocytes # Monocytes # Monocytes # (Manual) Metamyelocytes # (Man) Myelocytes # (Manual) Promyelocytes # (Man) Nucleated RBCs APTT D-Dimer ABG pH ABG pCO2 ABG pO2 ABG HCO3 ABG Total CO2 ABG O2 Saturation Sodium Potassium Chloride Carbon Dioxide BUN Creatinine Glucose POC Glucose (mg/dL) Plasma Lactic Acid Raymond 4.5 H* Calcium Phosphorus Magnesium Ferritin Total Bilirubin AST ALT Alkaline Phosphatase Lactate Dehydrogenase Troponin I 4.190 H* C-Reactive Protein Total Protein Albumin Triglycerides Procalcitonin 0.33 H Urine Protein Amorphous Sediment Hyaline Casts Urine Mucus 09/03/20 09/03/20 09/03/20 00:53 08:12 09:26 WBC RBC Hgb Hct RDW Plt Count Neutrophils # Neutrophils # (Manual) Lymphocytes # Monocytes # Monocytes # (Manual) Metamyelocytes # (Man) Myelocytes # (Manual) Promyelocytes # (Man) Nucleated RBCs APTT D-Dimer ABG pH ABG pCO2 ABG pO2 ABG HCO3 ABG Total CO2 ABG O2 Saturation Sodium Potassium Chloride Carbon Dioxide BUN Creatinine Glucose POC Glucose (mg/dL) Plasma Lactic Acid Raymond 2.1 H* Calcium Phosphorus Magnesium Ferritin Total Bilirubin AST ALT Alkaline Phosphatase Lactate Dehydrogenase Troponin I 6.960 H* C-Reactive Protein Total Protein Albumin Triglycerides Procalcitonin Urine Protein 1+ H Amorphous Sediment Occasional H Hyaline Casts 4 H Urine Mucus Few H 09/03/20 09/03/2009/03/21 11:59 14:43 20:10 WBC RBC Hgb Hct RDW Plt Count Neutrophils # Neutrophils # (Manual) Lymphocytes # Monocytes # Monocytes # (Manual) Metamyelocytes # (Man) Myelocytes # (Manual) Promyelocytes # (Man) Nucleated RBCs APTT 20.4 L D-Dimer ABG pH ABG pCO2 ABG pO2 ABG HCO3 ABG Total CO2 ABG O2 Saturation Sodium Potassium Chloride Carbon Dioxide BUN Creatinine Glucose POC Glucose (mg/dL) 134 H Plasma Lactic Acid Raymond Calcium Phosphorus Magnesium Ferritin Total Bilirubin AST ALT Alkaline Phosphatase Lactate Dehydrogenase Troponin I 6.590 H* C-Reactive Protein Total Protein Albumin Triglycerides Procalcitonin Urine Protein Amorphous Sediment Hyaline Casts Urine Mucus 09/03/20 09/04/20 09/04/20 20:11 03:12 03:12 WBC RBC Hgb Hct RDW Plt Count Neutrophils # Neutrophils # (Manual) Lymphocytes # Monocytes # Monocytes # (Manual) Metamyelocytes # (Man) Myelocytes # (Manual) Promyelocytes # (Man) Nucleated RBCs APTT 36.2 H D-Dimer >34.10 H ABG pH ABG pCO2 ABG pO2 ABG HCO3 ABG Total CO2 ABG O2 Saturation Sodium 136 L Potassium Chloride Carbon Dioxide BUN 39 H Creatinine Glucose 120 H POC Glucose (mg/dL) Plasma Lactic Acid Raymond Calcium 8.2 L Phosphorus Magnesium Ferritin Total Bilirubin AST 71 H ALT Alkaline Phosphatase Lactate Dehydrogenase 3965 H Troponin I C-Reactive Protein 142.8 H Total Protein 5.8 L Albumin 2.9 L Triglycerides Procalcitonin Urine Protein Amorphous Sediment Hyaline Casts Urine Mucus 09/04/20 09/04/20 09/04/20 03:12 06:06 12:01 WBC 29.3 H RBC Hgb Hct RDW Plt Count 140 L Neutrophils # Neutrophils # (Manual) Lymphocytes # Monocytes # Monocytes # (Manual) Metamyelocytes # (Man) Myelocytes # (Manual) Promyelocytes # (Man) Nucleated RBCs APTT D-Dimer ABG pH ABG pCO2 ABG pO2 ABG HCO3 ABG Total CO2 ABG O2 Saturation Sodium Potassium Chloride Carbon Dioxide BUN Creatinine Glucose POC Glucose (mg/dL) 129 H 112 H Plasma Lactic Acid Raymond Calcium Phosphorus Magnesium Ferritin Total Bilirubin AST ALT Alkaline Phosphatase Lactate Dehydrogenase Troponin I C-Reactive Protein Total Protein Albumin Triglycerides Procalcitonin Urine Protein Amorphous Sediment Hyaline Casts Urine Mucus 09/04/20 09/04/20 09/05/20 12:26 16:27 11:31 WBC RBC Hgb Hct RDW Plt Count Neutrophils # Neutrophils # (Manual) Lymphocytes # Monocytes # Monocytes # (Manual) Metamyelocytes # (Man) Myelocytes # (Manual) Promyelocytes # (Man) Nucleated RBCs APTT 30.9 H D-Dimer ABG pH ABG pCO2 ABG pO2 ABG HCO3 ABG Total CO2 ABG O2 Saturation Sodium Potassium Chloride Carbon Dioxide BUN Creatinine Glucose POC Glucose (mg/dL) 109 H 131 H Plasma Lactic Acid Raymond Calcium Phosphorus Magnesium Ferritin Total Bilirubin AST ALT Alkaline Phosphatase Lactate Dehydrogenase Troponin I C-Reactive Protein Total Protein Albumin Triglycerides Procalcitonin Urine Protein Amorphous Sediment Hyaline Casts Urine Mucus 09/05/20 09/05/20 09/06/20 16:36 20:01 06:07 WBC RBC Hgb Hct RDW Plt Count Neutrophils # Neutrophils # (Manual) Lymphocytes # Monocytes # Monocytes # (Manual) Metamyelocytes # (Man) Myelocytes # (Manual) Promyelocytes # (Man) Nucleated RBCs APTT D-Dimer ABG pH ABG pCO2 ABG pO2 ABG HCO3 ABG Total CO2 ABG O2 Saturation Sodium Potassium Chloride Carbon Dioxide BUN Creatinine Glucose POC Glucose (mg/dL) 124 H 115 H 111 H Plasma Lactic Acid Raymond Calcium Phosphorus Magnesium Ferritin Total Bilirubin AST ALT Alkaline Phosphatase Lactate Dehydrogenase Troponin I C-Reactive Protein Total Protein Albumin Triglycerides Procalcitonin Urine Protein Amorphous Sediment Hyaline Casts Urine Mucus 09/06/20 09/06/20 09/06/20 08:33 08:33 11:39 WBC 19.3 H RBC Hgb Hct RDW Plt Count 92 L Neutrophils # Neutrophils # (Manual) Lymphocytes # Monocytes # Monocytes # (Manual) Metamyelocytes # (Man) Myelocytes # (Manual) Promyelocytes # (Man) Nucleated RBCs APTT D-Dimer ABG pH ABG pCO2 ABG pO2 ABG HCO3 ABG Total CO2 ABG O2 Saturation Sodium 135 L Potassium Chloride 109 H Carbon Dioxide 20 L BUN 34 H Creatinine Glucose 102 H POC Glucose (mg/dL) 159 H Plasma Lactic Acid Raymond Calcium 8.1 L Phosphorus Magnesium Ferritin Total Bilirubin AST 80 H ALT Alkaline Phosphatase 205 H Lactate Dehydrogenase Troponin I C-Reactive Protein Total Protein 5.6 L Albumin 2.9 L Triglycerides Procalcitonin Urine Protein Amorphous Sediment Hyaline Casts Urine Mucus 09/06/20 09/06/20 09/07/20 16:38 20:18 11:38 WBC RBC Hgb Hct RDW Plt Count Neutrophils # Neutrophils # (Manual) Lymphocytes # Monocytes # Monocytes # (Manual) Metamyelocytes # (Man) Myelocytes # (Manual) Promyelocytes # (Man) Nucleated RBCs APTT D-Dimer ABG pH ABG pCO2 ABG pO2 ABG HCO3 ABG Total CO2 ABG O2 Saturation Sodium Potassium Chloride Carbon Dioxide BUN Creatinine Glucose POC Glucose (mg/dL) 133 H 108 H 123 H Plasma Lactic Acid Raymond Calcium Phosphorus Magnesium Ferritin Total Bilirubin AST ALT Alkaline Phosphatase Lactate Dehydrogenase Troponin I C-Reactive Protein Total Protein Albumin Triglycerides Procalcitonin Urine Protein Amorphous Sediment Hyaline Casts Urine Mucus 09/07/20 09/07/20 09/08/20 16:45 20:40 06:37 WBC RBC Hgb Hct RDW Plt Count Neutrophils # Neutrophils # (Manual) Lymphocytes # Monocytes # Monocytes # (Manual) Metamyelocytes # (Man) Myelocytes # (Manual) Promyelocytes # (Man) Nucleated RBCs APTT D-Dimer 24.62 H ABG pH ABG pCO2 ABG pO2 ABG HCO3 ABG Total CO2 ABG O2 Saturation Sodium Potassium Chloride Carbon Dioxide BUN Creatinine Glucose POC Glucose (mg/dL) 163 H 148 H Plasma Lactic Acid Raymond Calcium Phosphorus Magnesium Ferritin Total Bilirubin AST ALT Alkaline Phosphatase Lactate Dehydrogenase Troponin I C-Reactive Protein Total Protein Albumin Triglycerides Procalcitonin Urine Protein Amorphous Sediment Hyaline Casts Urine Mucus 09/08/20 09/09/20 09/10/20 06:37 16:04 07:35 WBC RBC Hgb Hct RDW Plt Count Neutrophils # Neutrophils # (Manual) Lymphocytes # Monocytes # Monocytes # (Manual) Metamyelocytes # (Man) Myelocytes # (Manual) Promyelocytes # (Man) Nucleated RBCs APTT D-Dimer ABG pH ABG pCO2 ABG pO2 ABG HCO3 ABG Total CO2 ABG O2 Saturation Sodium 136 L 136 L Potassium Chloride 108 H Carbon Dioxide 21 L BUN 29 H 29 H Creatinine Glucose 123 H 110 H POC Glucose (mg/dL) Plasma Lactic Acid Raymond Calcium 8.3 L 8.2 L Phosphorus Magnesium 2.4 H 2.4 H Ferritin Total Bilirubin AST 75 H ALT Alkaline Phosphatase 220 H Lactate Dehydrogenase 3911 H Troponin I C-Reactive Protein 22.5 H Total Protein 5.7 L Albumin 3.0 L Triglycerides 227 H Procalcitonin Urine Protein Amorphous Sediment Hyaline Casts Urine Mucus 09/10/20 09/10/20 09/11/20 19:55 23:56 05:23 WBC RBC Hgb Hct RDW Plt Count Neutrophils # Neutrophils # (Manual) Lymphocytes # Monocytes # Monocytes # (Manual) Metamyelocytes # (Man) Myelocytes # (Manual) Promyelocytes # (Man) Nucleated RBCs APTT D-Dimer ABG pH ABG pCO2 ABG pO2 ABG HCO3 ABG Total CO2 ABG O2 Saturation Sodium Potassium Chloride Carbon Dioxide BUN Creatinine Glucose POC Glucose (mg/dL) 133 H 181 H 111 H Plasma Lactic Acid Raymond Calcium Phosphorus Magnesium Ferritin Total Bilirubin AST ALT Alkaline Phosphatase Lactate Dehydrogenase Troponin I C-Reactive Protein Total Protein Albumin Triglycerides Procalcitonin Urine Protein Amorphous Sediment Hyaline Casts Urine Mucus 09/11/20 09/11/20 09/11/20 07:08 07:08 11:42 WBC RBC Hgb Hct RDW Plt Count Neutrophils # Neutrophils # (Manual) Lymphocytes # Monocytes # Monocytes # (Manual) Metamyelocytes # (Man) Myelocytes # (Manual) Promyelocytes # (Man) Nucleated RBCs APTT D-Dimer 15.60 H ABG pH ABG pCO2 ABG pO2 ABG HCO3 ABG Total CO2 ABG O2 Saturation Sodium 135 L Potassium Chloride Carbon Dioxide BUN 25 H Creatinine Glucose POC Glucose (mg/dL) 140 H Plasma Lactic Acid Raymond Calcium Phosphorus Magnesium Ferritin Total Bilirubin AST ALT Alkaline Phosphatase Lactate Dehydrogenase 3897 H Troponin I C-Reactive Protein Total Protein Albumin Triglycerides Procalcitonin Urine Protein Amorphous Sediment Hyaline Casts Urine Mucus 09/11/20 09/12/20 09/12/20 17:53 00:32 06:02 WBC RBC Hgb Hct RDW Plt Count Neutrophils # Neutrophils # (Manual) Lymphocytes # Monocytes # Monocytes # (Manual) Metamyelocytes # (Man) Myelocytes # (Manual) Promyelocytes # (Man) Nucleated RBCs APTT D-Dimer ABG pH ABG pCO2 ABG pO2 ABG HCO3 ABG Total CO2 ABG O2 Saturation Sodium Potassium Chloride Carbon Dioxide BUN Creatinine Glucose POC Glucose (mg/dL) 135 H 144 H 104 H Plasma Lactic Acid Raymond Calcium Phosphorus Magnesium Ferritin Total Bilirubin AST ALT Alkaline Phosphatase Lactate Dehydrogenase Troponin I C-Reactive Protein Total Protein Albumin Triglycerides Procalcitonin Urine Protein Amorphous Sediment Hyaline Casts Urine Mucus 09/12/20 09/12/20 09/12/20 11:00 11:00 11:43 WBC 24.6 H RBC Hgb Hct RDW Plt Count 121 L Neutrophils # Neutrophils # (Manual) Lymphocytes # Monocytes # Monocytes # (Manual) Metamyelocytes # (Man) Myelocytes # (Manual) Promyelocytes # (Man) Nucleated RBCs APTT D-Dimer ABG pH ABG pCO2 ABG pO2 ABG HCO3 ABG Total CO2 ABG O2 Saturation Sodium 132 L Potassium Chloride Carbon Dioxide 18 L BUN 29 H Creatinine 0.65 L Glucose 143 H POC Glucose (mg/dL) 138 H Plasma Lactic Acid Raymond Calcium Phosphorus Magnesium Ferritin Total Bilirubin AST ALT Alkaline Phosphatase Lactate Dehydrogenase Troponin I C-Reactive Protein Total Protein Albumin Triglycerides Procalcitonin Urine Protein Amorphous Sediment Hyaline Casts Urine Mucus 09/12/20 09/13/20 09/13/20 16:47 00:00 02:47 WBC RBC Hgb Hct RDW Plt Count Neutrophils # Neutrophils # (Manual) Lymphocytes # Monocytes # Monocytes # (Manual) Metamyelocytes # (Man) Myelocytes # (Manual) Promyelocytes # (Man) Nucleated RBCs APTT D-Dimer ABG pH ABG pCO2 ABG pO2 41 L* ABG HCO3 ABG Total CO2 25 H ABG O2 Saturation 73.0 L Sodium Potassium Chloride Carbon Dioxide BUN Creatinine Glucose POC Glucose (mg/dL) 179 H 122 H Plasma Lactic Acid Raymond Calcium Phosphorus Magnesium Ferritin Total Bilirubin AST ALT Alkaline Phosphatase Lactate Dehydrogenase Troponin I C-Reactive Protein Total Protein Albumin Triglycerides Procalcitonin Urine Protein Amorphous Sediment Hyaline Casts Urine Mucus 09/13/20 09/13/20 09/13/20 03:55 04:10 08:31 WBC RBC Hgb Hct RDW Plt Count Neutrophils # Neutrophils # (Manual) Lymphocytes # Monocytes # Monocytes # (Manual) Metamyelocytes # (Man) Myelocytes # (Manual) Promyelocytes # (Man) Nucleated RBCs APTT D-Dimer ABG pH 7.22 L 7.15 L* ABG pCO2 61 H 76 H* ABG pO2 72 L ABG HCO3 26 H 27 H ABG Total CO2 27 H 29 H ABG O2 Saturation 89.6 L Sodium 133 L Potassium Chloride Carbon Dioxide BUN 30 H Creatinine Glucose 156 H POC Glucose (mg/dL) Plasma Lactic Acid Raymond Calcium Phosphorus 5.4 H Magnesium Ferritin Total Bilirubin AST ALT Alkaline Phosphatase Lactate Dehydrogenase 4703 H Troponin I C-Reactive Protein 2.9 H Total Protein Albumin Triglycerides Procalcitonin Urine Protein Amorphous Sediment Hyaline Casts Urine Mucus 09/13/20 09/14/20 09/14/20 11:42 03:40 03:40 WBC 21.5 H RBC Hgb Hct RDW Plt Count 69 L Neutrophils # Neutrophils # (Manual) Lymphocytes # Monocytes # Monocytes # (Manual) Metamyelocytes # (Man) Myelocytes # (Manual) Promyelocytes # (Man) Nucleated RBCs APTT D-Dimer ABG pH ABG pCO2 ABG pO2 ABG HCO3 ABG Total CO2 ABG O2 Saturation Sodium 135 L Potassium 5.2 H Chloride Carbon Dioxide BUN 40 H Creatinine Glucose 131 H POC Glucose (mg/dL) 171 H Plasma Lactic Acid Raymond Calcium 8.3 L Phosphorus 5.3 H Magnesium 2.5 H Ferritin 1480.2 H Total Bilirubin AST ALT Alkaline Phosphatase Lactate Dehydrogenase 2293 H Troponin I C-Reactive Protein 5.2 H Total Protein Albumin Triglycerides Procalcitonin Urine Protein Amorphous Sediment Hyaline Casts Urine Mucus 09/14/20 09/14/20 09/15/20 05:25 06:00 03:45 WBC RBC Hgb Hct RDW Plt Count Neutrophils # Neutrophils # (Manual) Lymphocytes # Monocytes # Monocytes # (Manual) Metamyelocytes # (Man) Myelocytes # (Manual) Promyelocytes # (Man) Nucleated RBCs APTT D-Dimer 11.41 H ABG pH 7.29 L ABG pCO2 62 H ABG pO2 ABG HCO3 30 H ABG Total CO2 32 H ABG O2 Saturation Sodium Potassium 5.2 H Chloride Carbon Dioxide 33 H BUN 47 H Creatinine Glucose 151 H POC Glucose (mg/dL) Plasma Lactic Acid Raymond Calcium Phosphorus Magnesium 2.8 H Ferritin 1632.9 H Total Bilirubin AST ALT Alkaline Phosphatase Lactate Dehydrogenase 2036 H Troponin I C-Reactive Protein 2.6 H Total Protein Albumin Triglycerides Procalcitonin Urine Protein Amorphous Sediment Hyaline Casts Urine Mucus 09/15/20 09/15/20 09/15/20 03:45 03:45 04:41 WBC 21.8 H RBC Hgb Hct RDW Plt Count 90 L Neutrophils # Neutrophils # (Manual) Lymphocytes # Monocytes # Monocytes # (Manual) Metamyelocytes # (Man) Myelocytes # (Manual) Promyelocytes # (Man) Nucleated RBCs APTT D-Dimer 6.62 H ABG pH 7.30 L ABG pCO2 64 H ABG pO2 77 L ABG HCO3 32 H ABG Total CO2 34 H ABG O2 Saturation Sodium Potassium Chloride Carbon Dioxide BUN Creatinine Glucose POC Glucose (mg/dL) Plasma Lactic Acid Raymond Calcium Phosphorus Magnesium Ferritin Total Bilirubin AST ALT Alkaline Phosphatase Lactate Dehydrogenase Troponin I C-Reactive Protein Total Protein Albumin Triglycerides Procalcitonin Urine Protein Amorphous Sediment Hyaline Casts Urine Mucus 09/16/20 09/16/20 09/16/20 04:28 04:47 04:47 WBC 19.5 H RBC 4.19 L Hgb Hct RDW Plt Count 92 L Neutrophils # Neutrophils # (Manual) Lymphocytes # Monocytes # Monocytes # (Manual) Metamyelocytes # (Man) Myelocytes # (Manual) Promyelocytes # (Man) Nucleated RBCs APTT D-Dimer ABG pH 7.28 L ABG pCO2 68 H ABG pO2 77 L ABG HCO3 32 H ABG Total CO2 34 H ABG O2 Saturation Sodium Potassium 5.4 H Chloride Carbon Dioxide 32 H BUN 55 H Creatinine Glucose 182 H POC Glucose (mg/dL) Plasma Lactic Acid Raymond Calcium Phosphorus Magnesium Ferritin 1607.4 H Total Bilirubin AST ALT Alkaline Phosphatase Lactate Dehydrogenase 2081 H Troponin I C-Reactive Protein 1.5 H Total Protein Albumin Triglycerides Procalcitonin Urine Protein Amorphous Sediment Hyaline Casts Urine Mucus 09/16/20 09/17/20 09/17/20 10:25 04:10 05:30 WBC RBC Hgb Hct RDW Plt Count Neutrophils # Neutrophils # (Manual) Lymphocytes # Monocytes # Monocytes # (Manual) Metamyelocytes # (Man) Myelocytes # (Manual) Promyelocytes # (Man) Nucleated RBCs APTT D-Dimer 4.91 H ABG pH 7.26 L ABG pCO2 69 H ABG pO2 64 L ABG HCO3 31 H ABG Total CO2 33 H ABG O2 Saturation 91.4 L Sodium Potassium 5.3 H Chloride 111 H Carbon Dioxide 32 H BUN 58 H Creatinine Glucose 222 H POC Glucose (mg/dL) Plasma Lactic Acid Raymond Calcium 8.2 L Phosphorus Magnesium Ferritin Total Bilirubin AST ALT Alkaline Phosphatase Lactate Dehydrogenase Troponin I C-Reactive Protein Total Protein Albumin Triglycerides Procalcitonin Urine Protein Amorphous Sediment Hyaline Casts Urine Mucus 09/17/20 09/17/20 09/17/20 05:30 15:31 17:59 WBC RBC Hgb Hct RDW Plt Count Neutrophils # Neutrophils # (Manual) Lymphocytes # Monocytes # Monocytes # (Manual) Metamyelocytes # (Man) Myelocytes # (Manual) Promyelocytes # (Man) Nucleated RBCs APTT D-Dimer 2.98 H ABG pH ABG pCO2 ABG pO2 ABG HCO3 ABG Total CO2 ABG O2 Saturation Sodium Potassium Chloride Carbon Dioxide BUN Creatinine Glucose POC Glucose (mg/dL) 254 H 206 H Plasma Lactic Acid Raymond Calcium Phosphorus Magnesium Ferritin Total Bilirubin AST ALT Alkaline Phosphatase Lactate Dehydrogenase Troponin I C-Reactive Protein Total Protein Albumin Triglycerides Procalcitonin Urine Protein Amorphous Sediment Hyaline Casts Urine Mucus 09/17/20 09/18/20 09/18/20 23:57 05:15 05:15 WBC 14.9 H RBC 4.01 L Hgb 12.0 L Hct 38.3 L RDW Plt Count 104 L Neutrophils # 13.5 H Neutrophils # (Manual) Lymphocytes # 0.5 L Monocytes # Monocytes # (Manual) Metamyelocytes # (Man) Myelocytes # (Manual) Promyelocytes # (Man) Nucleated RBCs APTT D-Dimer ABG pH ABG pCO2 ABG pO2 ABG HCO3 ABG Total CO2 ABG O2 Saturation Sodium 146 H Potassium 5.6 H Chloride 112 H Carbon Dioxide 32 H BUN 54 H Creatinine Glucose 178 H POC Glucose (mg/dL) 201 H Plasma Lactic Acid Raymond Calcium 8.3 L Phosphorus Magnesium Ferritin Total Bilirubin AST ALT Alkaline Phosphatase Lactate Dehydrogenase Troponin I C-Reactive Protein Total Protein Albumin Triglycerides Procalcitonin Urine Protein Amorphous Sediment Hyaline Casts Urine Mucus 09/18/20 09/18/20 09/18/20 05:15 12:05 17:42 WBC RBC Hgb Hct RDW Plt Count Neutrophils # Neutrophils # (Manual) Lymphocytes # Monocytes # Monocytes # (Manual) Metamyelocytes # (Man) Myelocytes # (Manual) Promyelocytes # (Man) Nucleated RBCs APTT D-Dimer ABG pH 7.32 L ABG pCO2 61 H ABG pO2 64 L ABG HCO3 32 H ABG Total CO2 34 H ABG O2 Saturation 92.8 L Sodium Potassium Chloride Carbon Dioxide BUN Creatinine Glucose POC Glucose (mg/dL) 161 H 180 H Plasma Lactic Acid Raymond Calcium Phosphorus Magnesium Ferritin Total Bilirubin AST ALT Alkaline Phosphatase Lactate Dehydrogenase Troponin I C-Reactive Protein Total Protein Albumin Triglycerides Procalcitonin Urine Protein Amorphous Sediment Hyaline Casts Urine Mucus 09/19/20 09/19/20 09/19/20 00:11 04:44 05:00 WBC RBC Hgb Hct RDW Plt Count Neutrophils # Neutrophils # (Manual) Lymphocytes # Monocytes # Monocytes # (Manual) Metamyelocytes # (Man) Myelocytes # (Manual) Promyelocytes # (Man) Nucleated RBCs APTT D-Dimer ABG pH 7.32 L ABG pCO2 63 H ABG pO2 72 L ABG HCO3 32 H ABG Total CO2 34 H ABG O2 Saturation Sodium 149 H Potassium Chloride 114 H Carbon Dioxide 33 H BUN 52 H Creatinine Glucose 176 H POC Glucose (mg/dL) 175 H Plasma Lactic Acid Raymond Calcium 7.8 L Phosphorus Magnesium Ferritin Total Bilirubin AST ALT Alkaline Phosphatase Lactate Dehydrogenase Troponin I C-Reactive Protein Total Protein Albumin Triglycerides Procalcitonin Urine Protein Amorphous Sediment Hyaline Casts Urine Mucus 09/19/20 09/19/20 09/19/20 05:00 11:58 17:40 WBC 11.7 H RBC 3.48 L Hgb 11.1 L Hct 33.2 L RDW Plt Count 100 L Neutrophils # 10.1 H Neutrophils # (Manual) Lymphocytes # 0.5 L Monocytes # Monocytes # (Manual) Metamyelocytes # (Man) Myelocytes # (Manual) Promyelocytes # (Man) Nucleated RBCs APTT D-Dimer ABG pH ABG pCO2 ABG pO2 ABG HCO3 ABG Total CO2 ABG O2 Saturation Sodium Potassium Chloride Carbon Dioxide BUN Creatinine Glucose POC Glucose (mg/dL) 163 H 203 H Plasma Lactic Acid Raymond Calcium Phosphorus Magnesium Ferritin Total Bilirubin AST ALT Alkaline Phosphatase Lactate Dehydrogenase Troponin I C-Reactive Protein Total Protein Albumin Triglycerides Procalcitonin Urine Protein Amorphous Sediment Hyaline Casts Urine Mucus 09/19/20 09/20/20 09/20/20 23:25 04:06 05:50 WBC RBC Hgb Hct RDW Plt Count Neutrophils # Neutrophils # (Manual) Lymphocytes # Monocytes # Monocytes # (Manual) Metamyelocytes # (Man) Myelocytes # (Manual) Promyelocytes # (Man) Nucleated RBCs APTT D-Dimer ABG pH 7.32 L ABG pCO2 62 H ABG pO2 69 L ABG HCO3 32 H ABG Total CO2 33 H ABG O2 Saturation Sodium Potassium Chloride 112 H Carbon Dioxide 33 H BUN 51 H Creatinine Glucose 233 H POC Glucose (mg/dL) 257 H Plasma Lactic Acid Raymond Calcium 7.9 L Phosphorus Magnesium Ferritin Total Bilirubin AST ALT Alkaline Phosphatase Lactate Dehydrogenase Troponin I C-Reactive Protein Total Protein Albumin Triglycerides Procalcitonin Urine Protein Amorphous Sediment Hyaline Casts Urine Mucus 09/20/20 09/20/20 09/20/20 05:50 12:00 21:01 WBC 11.8 H RBC 3.35 L Hgb 10.7 L Hct 31.9 L RDW Plt Count 109 L Neutrophils # 10.1 H Neutrophils # (Manual) Lymphocytes # 0.7 L Monocytes # Monocytes # (Manual) Metamyelocytes # (Man) Myelocytes # (Manual) Promyelocytes # (Man) Nucleated RBCs APTT D-Dimer ABG pH ABG pCO2 ABG pO2 ABG HCO3 ABG Total CO2 ABG O2 Saturation Sodium Potassium Chloride Carbon Dioxide BUN Creatinine Glucose POC Glucose (mg/dL) 239 H 245 H Plasma Lactic Acid Raymond Calcium Phosphorus Magnesium Ferritin Total Bilirubin AST ALT Alkaline Phosphatase Lactate Dehydrogenase Troponin I C-Reactive Protein Total Protein Albumin Triglycerides Procalcitonin Urine Protein Amorphous Sediment Hyaline Casts Urine Mucus 09/21/20 09/21/20 09/21/20 00:35 04:45 05:11 WBC 11.9 H RBC 3.34 L Hgb 10.8 L Hct 31.6 L RDW Plt Count 129 L Neutrophils # 10.2 H Neutrophils # (Manual) Lymphocytes # 0.7 L Monocytes # Monocytes # (Manual) Metamyelocytes # (Man) Myelocytes # (Manual) Promyelocytes # (Man) Nucleated RBCs APTT D-Dimer ABG pH 7.32 L ABG pCO2 62 H ABG pO2 65 L ABG HCO3 32 H ABG Total CO2 34 H ABG O2 Saturation 92.3 L Sodium Potassium Chloride Carbon Dioxide BUN Creatinine Glucose POC Glucose (mg/dL) 265 H Plasma Lactic Acid Raymond Calcium Phosphorus Magnesium Ferritin Total Bilirubin AST ALT Alkaline Phosphatase Lactate Dehydrogenase Troponin I C-Reactive Protein Total Protein Albumin Triglycerides Procalcitonin Urine Protein Amorphous Sediment Hyaline Casts Urine Mucus 09/21/20 09/21/20 09/21/20 05:11 05:11 05:24 WBC RBC Hgb Hct RDW Plt Count Neutrophils # Neutrophils # (Manual) Lymphocytes # Monocytes # Monocytes # (Manual) Metamyelocytes # (Man) Myelocytes # (Manual) Promyelocytes # (Man) Nucleated RBCs APTT D-Dimer ABG pH ABG pCO2 ABG pO2 ABG HCO3 ABG Total CO2 ABG O2 Saturation Sodium Potassium 5.2 H Chloride Carbon Dioxide 33 H BUN 51 H Creatinine Glucose 237 H POC Glucose (mg/dL) 256 H Plasma Lactic Acid Raymond Calcium 7.9 L Phosphorus Magnesium 3.0 H Ferritin Total Bilirubin AST ALT Alkaline Phosphatase Lactate Dehydrogenase Troponin I C-Reactive Protein Total Protein Albumin Triglycerides Procalcitonin Urine Protein Amorphous Sediment Hyaline Casts Urine Mucus 09/21/20 09/21/20 09/21/20 07:52 11:27 17:25 WBC RBC Hgb Hct RDW Plt Count Neutrophils # Neutrophils # (Manual) Lymphocytes # Monocytes # Monocytes # (Manual) Metamyelocytes # (Man) Myelocytes # (Manual) Promyelocytes # (Man) Nucleated RBCs APTT D-Dimer ABG pH ABG pCO2 ABG pO2 ABG HCO3 ABG Total CO2 ABG O2 Saturation Sodium Potassium Chloride Carbon Dioxide BUN Creatinine Glucose POC Glucose (mg/dL) 218 H 186 H 209 H Plasma Lactic Acid Raymond Calcium Phosphorus Magnesium Ferritin Total Bilirubin AST ALT Alkaline Phosphatase Lactate Dehydrogenase Troponin I C-Reactive Protein Total Protein Albumin Triglycerides Procalcitonin Urine Protein Amorphous Sediment Hyaline Casts Urine Mucus 09/21/20 09/22/20 09/22/20 23:51 05:05 05:05 WBC 12.2 H RBC 3.34 L Hgb 10.7 L Hct 31.1 L RDW Plt Count 141 L Neutrophils # 11.1 H Neutrophils # (Manual) Lymphocytes # 0.4 L Monocytes # Monocytes # (Manual) Metamyelocytes # (Man) Myelocytes # (Manual) Promyelocytes # (Man) Nucleated RBCs APTT D-Dimer ABG pH ABG pCO2 ABG pO2 ABG HCO3 ABG Total CO2 ABG O2 Saturation Sodium Potassium 5.2 H Chloride Carbon Dioxide 33 H BUN 43 H Creatinine Glucose 181 H POC Glucose (mg/dL) 227 H Plasma Lactic Acid Raymond Calcium 7.8 L Phosphorus Magnesium Ferritin Total Bilirubin AST ALT Alkaline Phosphatase Lactate Dehydrogenase Troponin I C-Reactive Protein Total Protein Albumin Triglycerides Procalcitonin Urine Protein Amorphous Sediment Hyaline Casts Urine Mucus 09/22/20 09/22/20 09/22/20 05:15 05:20 05:26 WBC RBC Hgb Hct RDW Plt Count Neutrophils # Neutrophils # (Manual) Lymphocytes # Monocytes # Monocytes # (Manual) Metamyelocytes # (Man) Myelocytes # (Manual) Promyelocytes # (Man) Nucleated RBCs APTT D-Dimer ABG pH 7.33 L ABG pCO2 60 H ABG pO2 71 L ABG HCO3 32 H ABG Total CO2 33 H ABG O2 Saturation Sodium Potassium Chloride Carbon Dioxide BUN Creatinine Glucose POC Glucose (mg/dL) 126 H 179 H Plasma Lactic Acid Raymond Calcium Phosphorus Magnesium Ferritin Total Bilirubin AST ALT Alkaline Phosphatase Lactate Dehydrogenase Troponin I C-Reactive Protein Total Protein Albumin Triglycerides Procalcitonin Urine Protein Amorphous Sediment Hyaline Casts Urine Mucus 09/22/20 09/22/20 09/22/20 11:58 18:39 23:41 WBC RBC Hgb Hct RDW Plt Count Neutrophils # Neutrophils # (Manual) Lymphocytes # Monocytes # Monocytes # (Manual) Metamyelocytes # (Man) Myelocytes # (Manual) Promyelocytes # (Man) Nucleated RBCs APTT D-Dimer ABG pH ABG pCO2 ABG pO2 ABG HCO3 ABG Total CO2 ABG O2 Saturation Sodium Potassium Chloride Carbon Dioxide BUN Creatinine Glucose POC Glucose (mg/dL) 172 H 151 H 172 H Plasma Lactic Acid Raymond Calcium Phosphorus Magnesium Ferritin Total Bilirubin AST ALT Alkaline Phosphatase Lactate Dehydrogenase Troponin I C-Reactive Protein Total Protein Albumin Triglycerides Procalcitonin Urine Protein Amorphous Sediment Hyaline Casts Urine Mucus 09/23/20 09/23/20 09/23/20 04:15 04:15 04:45 WBC 20.9 H RBC 3.59 L Hgb 11.3 L Hct 33.6 L RDW Plt Count Neutrophils # 19.3 H Neutrophils # (Manual) Lymphocytes # 0.5 L Monocytes # Monocytes # (Manual) Metamyelocytes # (Man) Myelocytes # (Manual) Promyelocytes # (Man) Nucleated RBCs APTT D-Dimer ABG pH 7.34 L ABG pCO2 58 H ABG pO2 71 L ABG HCO3 31 H ABG Total CO2 33 H ABG O2 Saturation Sodium Potassium 5.2 H Chloride Carbon Dioxide 32 H BUN 43 H Creatinine Glucose 174 H POC Glucose (mg/dL) Plasma Lactic Acid Raymond Calcium 8.1 L Phosphorus Magnesium Ferritin Total Bilirubin AST ALT 119 H Alkaline Phosphatase Lactate Dehydrogenase Troponin I C-Reactive Protein Total Protein 5.1 L Albumin 2.9 L Triglycerides Procalcitonin Urine Protein Amorphous Sediment Hyaline Casts Urine Mucus 09/23/20 09/23/20 09/23/20 05:51 11:20 17:40 WBC RBC Hgb Hct RDW Plt Count Neutrophils # Neutrophils # (Manual) Lymphocytes # Monocytes # Monocytes # (Manual) Metamyelocytes # (Man) Myelocytes # (Manual) Promyelocytes # (Man) Nucleated RBCs APTT D-Dimer ABG pH ABG pCO2 ABG pO2 ABG HCO3 ABG Total CO2 ABG O2 Saturation Sodium Potassium Chloride Carbon Dioxide BUN Creatinine Glucose POC Glucose (mg/dL) 196 H 178 H 215 H Plasma Lactic Acid Raymond Calcium Phosphorus Magnesium Ferritin Total Bilirubin AST ALT Alkaline Phosphatase Lactate Dehydrogenase Troponin I C-Reactive Protein Total Protein Albumin Triglycerides Procalcitonin Urine Protein Amorphous Sediment Hyaline Casts Urine Mucus 09/23/20 09/24/20 09/24/20 23:45 04:33 04:33 WBC 23.2 H RBC 3.79 L Hgb 11.9 L Hct 35.6 L RDW Plt Count Neutrophils # 21.5 H Neutrophils # (Manual) Lymphocytes # 0.2 L Monocytes # 1.1 H Monocytes # (Manual) Metamyelocytes # (Man) Myelocytes # (Manual) Promyelocytes # (Man) Nucleated RBCs APTT D-Dimer ABG pH ABG pCO2 ABG pO2 ABG HCO3 ABG Total CO2 ABG O2 Saturation Sodium Potassium Chloride Carbon Dioxide 35 H BUN 40 H Creatinine Glucose 210 H POC Glucose (mg/dL) 201 H Plasma Lactic Acid Raymond Calcium 8.3 L Phosphorus Magnesium Ferritin Total Bilirubin AST 91 H ALT 175 H Alkaline Phosphatase Lactate Dehydrogenase Troponin I C-Reactive Protein Total Protein 5.5 L Albumin 3.1 L Triglycerides Procalcitonin Urine Protein Amorphous Sediment Hyaline Casts Urine Mucus 09/24/20 09/24/20 09/24/20 04:38 05:43 11:56 WBC RBC Hgb Hct RDW Plt Count Neutrophils # Neutrophils # (Manual) Lymphocytes # Monocytes # Monocytes # (Manual) Metamyelocytes # (Man) Myelocytes # (Manual) Promyelocytes # (Man) Nucleated RBCs APTT D-Dimer ABG pH 7.28 L ABG pCO2 69 H ABG pO2 74 L ABG HCO3 32 H ABG Total CO2 35 H ABG O2 Saturation 93.9 L Sodium Potassium Chloride Carbon Dioxide BUN Creatinine Glucose POC Glucose (mg/dL) 215 H 200 H Plasma Lactic Acid Raymond Calcium Phosphorus Magnesium Ferritin Total Bilirubin AST ALT Alkaline Phosphatase Lactate Dehydrogenase Troponin I C-Reactive Protein Total Protein Albumin Triglycerides Procalcitonin Urine Protein Amorphous Sediment Hyaline Casts Urine Mucus 09/24/20 09/24/20 09/25/20 17:28 23:45 04:52 WBC RBC Hgb Hct RDW Plt Count Neutrophils # Neutrophils # (Manual) Lymphocytes # Monocytes # Monocytes # (Manual) Metamyelocytes # (Man) Myelocytes # (Manual) Promyelocytes # (Man) Nucleated RBCs APTT D-Dimer ABG pH ABG pCO2 57 H ABG pO2 74 L ABG HCO3 33 H ABG Total CO2 35 H ABG O2 Saturation Sodium Potassium Chloride Carbon Dioxide BUN Creatinine Glucose POC Glucose (mg/dL) 199 H 222 H Plasma Lactic Acid Raymond Calcium Phosphorus Magnesium Ferritin Total Bilirubin AST ALT Alkaline Phosphatase Lactate Dehydrogenase Troponin I C-Reactive Protein Total Protein Albumin Triglycerides Procalcitonin Urine Protein Amorphous Sediment Hyaline Casts Urine Mucus 09/25/20 09/25/20 09/25/20 04:57 04:57 06:16 WBC 17.2 H RBC 3.22 L Hgb 9.7 L D Hct 30.5 L RDW 16.2 H Plt Count Neutrophils # 15.5 H Neutrophils # (Manual) Lymphocytes # 0.6 L Monocytes # Monocytes # (Manual) Metamyelocytes # (Man) Myelocytes # (Manual) Promyelocytes # (Man) Nucleated RBCs APTT D-Dimer ABG pH ABG pCO2 ABG pO2 ABG HCO3 ABG Total CO2 ABG O2 Saturation Sodium Potassium Chloride 109 H Carbon Dioxide 33 H BUN 46 H Creatinine Glucose 192 H POC Glucose (mg/dL) 197 H Plasma Lactic Acid Raymond Calcium 8.0 L Phosphorus Magnesium Ferritin Total Bilirubin AST ALT Alkaline Phosphatase Lactate Dehydrogenase Troponin I C-Reactive Protein Total Protein Albumin Triglycerides Procalcitonin Urine Protein Amorphous Sediment Hyaline Casts Urine Mucus 09/25/20 09/25/20 09/25/20 12:02 17:56 23:40 WBC RBC Hgb Hct RDW Plt Count Neutrophils # Neutrophils # (Manual) Lymphocytes # Monocytes # Monocytes # (Manual) Metamyelocytes # (Man) Myelocytes # (Manual) Promyelocytes # (Man) Nucleated RBCs APTT D-Dimer ABG pH ABG pCO2 ABG pO2 ABG HCO3 ABG Total CO2 ABG O2 Saturation Sodium Potassium Chloride Carbon Dioxide BUN Creatinine Glucose POC Glucose (mg/dL) 169 H 115 H 208 H Plasma Lactic Acid Raymond Calcium Phosphorus Magnesium Ferritin Total Bilirubin AST ALT Alkaline Phosphatase Lactate Dehydrogenase Troponin I C-Reactive Protein Total Protein Albumin Triglycerides Procalcitonin Urine Protein Amorphous Sediment Hyaline Casts Urine Mucus 09/26/20 09/26/20 09/26/20 05:00 05:00 05:00 WBC RBC Hgb Hct RDW Plt Count Neutrophils # Neutrophils # (Manual) Lymphocytes # Monocytes # Monocytes # (Manual) Metamyelocytes # (Man) Myelocytes # (Manual) Promyelocytes # (Man) Nucleated RBCs APTT D-Dimer 2.23 H ABG pH ABG pCO2 ABG pO2 ABG HCO3 ABG Total CO2 ABG O2 Saturation Sodium Potassium Chloride 122 H Carbon Dioxide BUN 32 H Creatinine 0.57 L Glucose 112 H POC Glucose (mg/dL) Plasma Lactic Acid Raymond Calcium 4.9 L* Phosphorus Magnesium Ferritin Total Bilirubin AST ALT Alkaline Phosphatase Lactate Dehydrogenase 1027 H Troponin I C-Reactive Protein 8.7 H Total Protein Albumin Triglycerides Procalcitonin 0.16 H Urine Protein Amorphous Sediment Hyaline Casts Urine Mucus 09/26/20 09/26/20 09/26/20 05:02 05:30 06:10 WBC 17.0 H RBC 2.90 L Hgb 9.3 L Hct 27.3 L RDW 15.8 H Plt Count Neutrophils # 15.8 H Neutrophils # (Manual) Lymphocytes # 0.3 L Monocytes # Monocytes # (Manual) Metamyelocytes # (Man) Myelocytes # (Manual) Promyelocytes # (Man) Nucleated RBCs APTT D-Dimer ABG pH ABG pCO2 58 H ABG pO2 121 H ABG HCO3 33 H ABG Total CO2 34 H ABG O2 Saturation 98.7 H Sodium Potassium Chloride Carbon Dioxide BUN Creatinine Glucose POC Glucose (mg/dL) 180 H Plasma Lactic Acid Raymond Calcium Phosphorus Magnesium Ferritin Total Bilirubin AST ALT Alkaline Phosphatase Lactate Dehydrogenase Troponin I C-Reactive Protein Total Protein Albumin Triglycerides Procalcitonin Urine Protein Amorphous Sediment Hyaline Casts Urine Mucus 09/26/20 09/26/20 09/26/20 11:23 11:25 12:22 WBC RBC Hgb Hct RDW Plt Count Neutrophils # Neutrophils # (Manual) Lymphocytes # Monocytes # Monocytes # (Manual) Metamyelocytes # (Man) Myelocytes # (Manual) Promyelocytes # (Man) Nucleated RBCs APTT D-Dimer ABG pH ABG pCO2 ABG pO2 ABG HCO3 ABG Total CO2 ABG O2 Saturation Sodium Potassium 6.0 H 5.8 H Chloride Carbon Dioxide BUN Creatinine Glucose POC Glucose (mg/dL) 189 H Plasma Lactic Acid Raymond Calcium Phosphorus Magnesium Ferritin Total Bilirubin AST ALT Alkaline Phosphatase Lactate Dehydrogenase Troponin I C-Reactive Protein Total Protein Albumin Triglycerides Procalcitonin Urine Protein Amorphous Sediment Hyaline Casts Urine Mucus 09/26/20 09/26/20 09/26/20 15:37 15:49 16:56 WBC RBC Hgb Hct RDW Plt Count Neutrophils # Neutrophils # (Manual) Lymphocytes # Monocytes # Monocytes # (Manual) Metamyelocytes # (Man) Myelocytes # (Manual) Promyelocytes # (Man) Nucleated RBCs APTT D-Dimer ABG pH ABG pCO2 ABG pO2 ABG HCO3 ABG Total CO2 ABG O2 Saturation Sodium Potassium 5.5 H Chloride Carbon Dioxide BUN Creatinine Glucose POC Glucose (mg/dL) 187 H 195 H Plasma Lactic Acid Raymond Calcium Phosphorus Magnesium Ferritin Total Bilirubin AST ALT Alkaline Phosphatase Lactate Dehydrogenase Troponin I C-Reactive Protein Total Protein Albumin Triglycerides Procalcitonin Urine Protein Amorphous Sediment Hyaline Casts Urine Mucus 09/27/20 09/27/20 09/27/20 00:47 04:30 04:30 WBC 18.1 H RBC 3.18 L Hgb 9.7 L Hct 30.2 L RDW 16.3 H Plt Count Neutrophils # 16.6 H Neutrophils # (Manual) Lymphocytes # 0.6 L Monocytes # Monocytes # (Manual) Metamyelocytes # (Man) Myelocytes # (Manual) Promyelocytes # (Man) Nucleated RBCs APTT D-Dimer 1.27 H ABG pH ABG pCO2 ABG pO2 ABG HCO3 ABG Total CO2 ABG O2 Saturation Sodium Potassium Chloride Carbon Dioxide BUN Creatinine Glucose POC Glucose (mg/dL) 178 H Plasma Lactic Acid Raymond Calcium Phosphorus Magnesium Ferritin Total Bilirubin AST ALT Alkaline Phosphatase Lactate Dehydrogenase Troponin I C-Reactive Protein Total Protein Albumin Triglycerides Procalcitonin Urine Protein Amorphous Sediment Hyaline Casts Urine Mucus 09/27/20 09/27/20 09/27/20 04:30 04:30 05:00 WBC RBC Hgb Hct RDW Plt Count Neutrophils # Neutrophils # (Manual) Lymphocytes # Monocytes # Monocytes # (Manual) Metamyelocytes # (Man) Myelocytes # (Manual) Promyelocytes # (Man) Nucleated RBCs APTT D-Dimer ABG pH ABG pCO2 56 H ABG pO2 61 L ABG HCO3 33 H ABG Total CO2 34 H ABG O2 Saturation 90.9 L Sodium Potassium Chloride 118 H Carbon Dioxide BUN 42 H Creatinine Glucose 137 H POC Glucose (mg/dL) Plasma Lactic Acid Raymond Calcium 6.2 L* Phosphorus Magnesium Ferritin Total Bilirubin AST ALT Alkaline Phosphatase Lactate Dehydrogenase 1528 H Troponin I C-Reactive Protein 13.5 H Total Protein Albumin Triglycerides Procalcitonin Urine Protein Amorphous Sediment Hyaline Casts Urine Mucus 09/27/20 09/27/20 09/27/20 06:05 11:59 13:19 WBC RBC Hgb Hct RDW Plt Count Neutrophils # Neutrophils # (Manual) Lymphocytes # Monocytes # Monocytes # (Manual) Metamyelocytes # (Man) Myelocytes # (Manual) Promyelocytes # (Man) Nucleated RBCs APTT D-Dimer ABG pH ABG pCO2 ABG pO2 ABG HCO3 ABG Total CO2 ABG O2 Saturation Sodium Potassium Chloride Carbon Dioxide BUN Creatinine Glucose POC Glucose (mg/dL) 163 H 148 H 173 H Plasma Lactic Acid Raymond Calcium Phosphorus Magnesium Ferritin Total Bilirubin AST ALT Alkaline Phosphatase Lactate Dehydrogenase Troponin I C-Reactive Protein Total Protein Albumin Triglycerides Procalcitonin Urine Protein Amorphous Sediment Hyaline Casts Urine Mucus 09/27/20 09/27/20 09/28/20 18:06 23:29 05:05 WBC 15.5 H RBC 2.93 L Hgb 8.8 L Hct 28.3 L RDW 16.6 H Plt Count Neutrophils # 14.3 H Neutrophils # (Manual) Lymphocytes # 0.3 L Monocytes # Monocytes # (Manual) Metamyelocytes # (Man) Myelocytes # (Manual) Promyelocytes # (Man) Nucleated RBCs APTT D-Dimer ABG pH ABG pCO2 ABG pO2 ABG HCO3 ABG Total CO2 ABG O2 Saturation Sodium Potassium Chloride Carbon Dioxide BUN Creatinine Glucose POC Glucose (mg/dL) 163 H 189 H Plasma Lactic Acid Raymond Calcium Phosphorus Magnesium Ferritin Total Bilirubin AST ALT Alkaline Phosphatase Lactate Dehydrogenase Troponin I C-Reactive Protein Total Protein Albumin Triglycerides Procalcitonin Urine Protein Amorphous Sediment Hyaline Casts Urine Mucus 09/28/20 09/28/20 09/28/20 05:05 05:09 05:22 WBC RBC Hgb Hct RDW Plt Count Neutrophils # Neutrophils # (Manual) Lymphocytes # Monocytes # Monocytes # (Manual) Metamyelocytes # (Man) Myelocytes # (Manual) Promyelocytes # (Man) Nucleated RBCs APTT D-Dimer ABG pH ABG pCO2 52 H ABG pO2 ABG HCO3 33 H ABG Total CO2 34 H ABG O2 Saturation Sodium Potassium Chloride 108 H Carbon Dioxide 33 H BUN 51 H Creatinine Glucose 185 H POC Glucose (mg/dL) 199 H Plasma Lactic Acid Raymond Calcium 8.2 L Phosphorus Magnesium Ferritin Total Bilirubin AST ALT Alkaline Phosphatase Lactate Dehydrogenase Troponin I C-Reactive Protein Total Protein Albumin Triglycerides Procalcitonin Urine Protein Amorphous Sediment Hyaline Casts Urine Mucus 09/28/20 09/28/20 09/28/20 11:55 18:08 23:37 WBC RBC Hgb Hct RDW Plt Count Neutrophils # Neutrophils # (Manual) Lymphocytes # Monocytes # Monocytes # (Manual) Metamyelocytes # (Man) Myelocytes # (Manual) Promyelocytes # (Man) Nucleated RBCs APTT D-Dimer ABG pH ABG pCO2 ABG pO2 ABG HCO3 ABG Total CO2 ABG O2 Saturation Sodium Potassium Chloride Carbon Dioxide BUN Creatinine Glucose POC Glucose (mg/dL) 179 H 169 H 177 H Plasma Lactic Acid Raymond Calcium Phosphorus Magnesium Ferritin Total Bilirubin AST ALT Alkaline Phosphatase Lactate Dehydrogenase Troponin I C-Reactive Protein Total Protein Albumin Triglycerides Procalcitonin Urine Protein Amorphous Sediment Hyaline Casts Urine Mucus 09/29/20 09/29/20 09/29/20 04:53 04:58 04:58 WBC RBC Hgb Hct RDW Plt Count Neutrophils # Neutrophils # (Manual) Lymphocytes # Monocytes # Monocytes # (Manual) Metamyelocytes # (Man) Myelocytes # (Manual) Promyelocytes # (Man) Nucleated RBCs APTT D-Dimer 1.57 H ABG pH ABG pCO2 56 H ABG pO2 64 L ABG HCO3 32 H ABG Total CO2 34 H ABG O2 Saturation 92.3 L Sodium Potassium Chloride 109 H Carbon Dioxide 32 H BUN 49 H Creatinine Glucose 192 H POC Glucose (mg/dL) Plasma Lactic Acid Raymond Calcium Phosphorus Magnesium Ferritin Total Bilirubin AST ALT Alkaline Phosphatase Lactate Dehydrogenase 2371 H Troponin I C-Reactive Protein 14.9 H Total Protein Albumin Triglycerides Procalcitonin Urine Protein Amorphous Sediment Hyaline Casts Urine Mucus 09/29/20 09/29/20 09/29/20 04:58 04:58 05:03 WBC 24.2 H RBC 3.46 L Hgb 11.0 L Hct 33.1 L RDW 16.5 H Plt Count Neutrophils # 22.5 H Neutrophils # (Manual) Lymphocytes # 0.2 L Monocytes # 1.2 H Monocytes # (Manual) Metamyelocytes # (Man) Myelocytes # (Manual) Promyelocytes # (Man) Nucleated RBCs APTT D-Dimer ABG pH ABG pCO2 ABG pO2 ABG HCO3 ABG Total CO2 ABG O2 Saturation Sodium Potassium Chloride Carbon Dioxide BUN Creatinine Glucose POC Glucose (mg/dL) 187 H Plasma Lactic Acid Raymond Calcium Phosphorus Magnesium Ferritin Total Bilirubin AST ALT Alkaline Phosphatase Lactate Dehydrogenase Troponin I C-Reactive Protein Total Protein Albumin Triglycerides Procalcitonin 0.19 H Urine Protein Amorphous Sediment Hyaline Casts Urine Mucus 09/29/20 09/29/20 09/30/20 12:07 17:43 00:51 WBC RBC Hgb Hct RDW Plt Count Neutrophils # Neutrophils # (Manual) Lymphocytes # Monocytes # Monocytes # (Manual) Metamyelocytes # (Man) Myelocytes # (Manual) Promyelocytes # (Man) Nucleated RBCs APTT D-Dimer ABG pH ABG pCO2 ABG pO2 ABG HCO3 ABG Total CO2 ABG O2 Saturation Sodium Potassium Chloride Carbon Dioxide BUN Creatinine Glucose POC Glucose (mg/dL) 168 H 191 H 181 H Plasma Lactic Acid Raymond Calcium Phosphorus Magnesium Ferritin Total Bilirubin AST ALT Alkaline Phosphatase Lactate Dehydrogenase Troponin I C-Reactive Protein Total Protein Albumin Triglycerides Procalcitonin Urine Protein Amorphous Sediment Hyaline Casts Urine Mucus 09/30/20 09/30/20 09/30/20 04:05 04:05 05:35 WBC 21.7 H RBC 3.28 L Hgb 10.3 L Hct 31.6 L RDW 16.5 H Plt Count Neutrophils # 20.1 H Neutrophils # (Manual) Lymphocytes # 0.3 L Monocytes # 1.1 H Monocytes # (Manual) Metamyelocytes # (Man) Myelocytes # (Manual) Promyelocytes # (Man) Nucleated RBCs APTT D-Dimer ABG pH ABG pCO2 57 H ABG pO2 62 L ABG HCO3 32 H ABG Total CO2 34 H ABG O2 Saturation 91.5 L Sodium 147 H Potassium Chloride 114 H Carbon Dioxide 33 H BUN 49 H Creatinine Glucose 140 H POC Glucose (mg/dL) Plasma Lactic Acid Raymond Calcium Phosphorus Magnesium Ferritin Total Bilirubin AST ALT Alkaline Phosphatase Lactate Dehydrogenase Troponin I C-Reactive Protein Total Protein Albumin Triglycerides Procalcitonin Urine Protein Amorphous Sediment Hyaline Casts Urine Mucus 09/30/20 09/30/20 09/30/20 06:41 17:46 23:38 WBC RBC Hgb Hct RDW Plt Count Neutrophils # Neutrophils # (Manual) Lymphocytes # Monocytes # Monocytes # (Manual) Metamyelocytes # (Man) Myelocytes # (Manual) Promyelocytes # (Man) Nucleated RBCs APTT D-Dimer ABG pH ABG pCO2 ABG pO2 ABG HCO3 ABG Total CO2 ABG O2 Saturation Sodium Potassium Chloride Carbon Dioxide BUN Creatinine Glucose POC Glucose (mg/dL) 131 H 168 H 158 H Plasma Lactic Acid Raymond Calcium Phosphorus Magnesium Ferritin Total Bilirubin AST ALT Alkaline Phosphatase Lactate Dehydrogenase Troponin I C-Reactive Protein Total Protein Albumin Triglycerides Procalcitonin Urine Protein Amorphous Sediment Hyaline Casts Urine Mucus 10/01/20 10/01/20 10/01/20 04:41 04:45 04:45 WBC 22.7 H RBC 3.17 L Hgb 9.6 L Hct 30.6 L RDW 17.0 H Plt Count Neutrophils # 21.2 H Neutrophils # (Manual) Lymphocytes # 0.5 L Monocytes # Monocytes # (Manual) Metamyelocytes # (Man) Myelocytes # (Manual) Promyelocytes # (Man) Nucleated RBCs APTT D-Dimer ABG pH ABG pCO2 56 H ABG pO2 62 L ABG HCO3 32 H ABG Total CO2 33 H ABG O2 Saturation 91.4 L Sodium 148 H Potassium Chloride 112 H Carbon Dioxide 32 H BUN 69 H Creatinine 1.31 H Glucose 105 H POC Glucose (mg/dL) Plasma Lactic Acid Raymond Calcium 8.1 L Phosphorus Magnesium Ferritin Total Bilirubin AST ALT Alkaline Phosphatase Lactate Dehydrogenase 2244 H Troponin I C-Reactive Protein 20.5 H Total Protein Albumin Triglycerides Procalcitonin Urine Protein Amorphous Sediment Hyaline Casts Urine Mucus 10/01/20 10/01/20 10/01/20 04:45 04:49 11:32 WBC RBC Hgb Hct RDW Plt Count Neutrophils # Neutrophils # (Manual) Lymphocytes # Monocytes # Monocytes # (Manual) Metamyelocytes # (Man) Myelocytes # (Manual) Promyelocytes # (Man) Nucleated RBCs APTT D-Dimer 3.48 H ABG pH ABG pCO2 ABG pO2 ABG HCO3 ABG Total CO2 ABG O2 Saturation Sodium Potassium Chloride Carbon Dioxide BUN Creatinine Glucose POC Glucose (mg/dL) 111 H 138 H Plasma Lactic Acid Raymond Calcium Phosphorus Magnesium Ferritin Total Bilirubin AST ALT Alkaline Phosphatase Lactate Dehydrogenase Troponin I C-Reactive Protein Total Protein Albumin Triglycerides Procalcitonin Urine Protein Amorphous Sediment Hyaline Casts Urine Mucus 10/01/20 10/01/20 10/02/20 18:07 23:19 04:53 WBC RBC Hgb Hct RDW Plt Count Neutrophils # Neutrophils # (Manual) Lymphocytes # Monocytes # Monocytes # (Manual) Metamyelocytes # (Man) Myelocytes # (Manual) Promyelocytes # (Man) Nucleated RBCs APTT D-Dimer ABG pH ABG pCO2 ABG pO2 ABG HCO3 ABG Total CO2 ABG O2 Saturation Sodium Potassium Chloride Carbon Dioxide BUN Creatinine Glucose POC Glucose (mg/dL) 183 H 127 H 121 H Plasma Lactic Acid Raymond Calcium Phosphorus Magnesium Ferritin Total Bilirubin AST ALT Alkaline Phosphatase Lactate Dehydrogenase Troponin I C-Reactive Protein Total Protein Albumin Triglycerides Procalcitonin Urine Protein Amorphous Sediment Hyaline Casts Urine Mucus 10/02/20 10/02/20 10/02/20 05:00 05:00 05:00 WBC 25.4 H RBC 3.36 L Hgb 10.2 L Hct 32.5 L RDW 16.8 H Plt Count 125 L Neutrophils # 24.0 H Neutrophils # (Manual) Lymphocytes # 0.7 L Monocytes # Monocytes # (Manual) Metamyelocytes # (Man) Myelocytes # (Manual) Promyelocytes # (Man) Nucleated RBCs APTT D-Dimer 3.63 H ABG pH ABG pCO2 ABG pO2 ABG HCO3 ABG Total CO2 ABG O2 Saturation Sodium Potassium Chloride 111 H Carbon Dioxide BUN 96 H Creatinine 2.08 H Glucose 120 H POC Glucose (mg/dL) Plasma Lactic Acid Raymond Calcium 8.0 L Phosphorus Magnesium Ferritin Total Bilirubin AST ALT Alkaline Phosphatase Lactate Dehydrogenase 2456 H Troponin I C-Reactive Protein 20.4 H Total Protein Albumin Triglycerides Procalcitonin Urine Protein Amorphous Sediment Hyaline Casts Urine Mucus 10/02/20 10/02/20 10/02/20 05:17 08:15 11:24 WBC RBC Hgb Hct RDW Plt Count Neutrophils # Neutrophils # (Manual) Lymphocytes # Monocytes # Monocytes # (Manual) Metamyelocytes # (Man) Myelocytes # (Manual) Promyelocytes # (Man) Nucleated RBCs APTT D-Dimer ABG pH ABG pCO2 51 H ABG pO2 67 L ABG HCO3 28 H ABG Total CO2 30 H ABG O2 Saturation 93.1 L Sodium Potassium Chloride Carbon Dioxide BUN Creatinine Glucose POC Glucose (mg/dL) 150 H Plasma Lactic Acid Raymond Calcium Phosphorus Magnesium Ferritin Total Bilirubin AST 345 H ALT 289 H Alkaline Phosphatase Lactate Dehydrogenase Troponin I C-Reactive Protein Total Protein Albumin Triglycerides Procalcitonin Urine Protein Amorphous Sediment Hyaline Casts Urine Mucus Assessment and Plan Assessment: * Altered mental status with comatose state due to severe toxic metabolic encephalopathy. Reasons multifactorial as below. * Abnormal CT head, showing evidence of subcortical white matter hypodensity, asymmetric to the left posterior parietal region. Rule out subacute to chronic CVA. * Covid-19 pneumonia, with hypoxemia, worsening infiltrates * MRSA pneumonia * Acute renal insufficiency, getting worse. * Elevated LFTs * Non-STEMI * New onset atrial flutter. * Status post tracheostomy and PEG placement Plan: * Patient computed tomography scan of the head revealed subcortical white matter hypodensity, asymmetric to the left, rule out subacute to chronic CVA. We will repeat computed tomography scan of the head in the morning, to evaluate for any interval change. * EEG revealed background slowing of at least moderate degree, suggestive of toxic metabolic encephalopathy or from diffuse structural brain abnormality. No epileptiform activity was seen. * Patient has been off sedation 09/29/2020, with no significant clinical improvement. * We will check hemoglobin A1c, carotid Doppler. * 2-D echo from 09/03/2020 shows moderate concentric LVH, EF is 55-60%. Trace MR. * Patient on aspirin 81 mg, Lipitor 80 mg. Patient also on heparin IV for atrial flutter. * Prognosis appears very guarded based upon neurological and other comorbid conditions.
[2020-10-02 23:16] LABS: Glucose,Whole Blood 171 mg/dL (75-99)
[2020-10-03] MEDS: PHENYLEPHRINE 40 MG in SODIUM CHLORIDE 0.9% 250 ML IV SCH ×3 (01:22→18:40)
[2020-10-03 04:55] LABS: Anisocytosis Slight; Basophils % (A) 0 %; Eosinophils % (A) 0 %; HCT 25.5 % (39.0-53.0); Hypochromasia Slight; Lymphocytes # (A) 0.5 k/uL (1.0-4.8); Lymphocytes % (A) 2 %; MCH 31.6 pg (25.0-35.0); MCHC 33.3 g/dL (31.0-37.0); MCV 94.9 fL (80.0-100.0); Mean Platelet Volume 10.1; Monocytes # (A) 0.5 k/uL (0-1.0); Monocytes % (A) 2 %; Neutrophils % (A) 95 %; Platelet Count 104 k/uL (150-450); RBC 2.69 m/uL (4.30-5.90); RDW 16.4 % (11.5-15.5); WBC 23.1 k/uL (3.8-10.6)
[2020-10-03 04:57] LABS: ABG Base Excess -1.1 mmol/L; ABG HCO3 25 mmol/L (21-25); ABG Oxygen Saturation 95.2 % (94-97); ABG PCO2 50 mmHg (35-45); ABG PH 7.31 (7.35-7.45); ABG PO2 77 mmHg (83-108); ABG TCO2 27 mmol/L (19-24); Allen Test Performed? Yes
[2020-10-03 05:01] LABS: HGB 8.5 gm/dL (13.0-17.5)
[2020-10-03 05:10] LABS: INR 1.1 (<1.2); Partial Thromboplastin Time 53.6 sec (22.0-30.0); Prothrombin Time 11.4 sec (9.0-12.0)
[2020-10-03 05:30] LABS: Albumin 2.4 g/dL (3.5-5.0); Calcium 7.8 mg/dL (8.4-10.2); Potassium 4.5 mmol/L (3.5-5.1); Total Bilirubin 0.4 mg/dL (0.2-1.3); Total Protein 4.9 g/dL (6.3-8.2)
--- NOTE | 2020-10-03 05:50 | XR ---
EXAMINATION TYPE: XR chest 1V portable DATE OF EXAM: 10/03/2020 CLINICAL HISTORY: Difficulty breathing and covid progress study. TECHNIQUE: Single AP portable semiupright view of the chest is obtained. COMPARISON: Chest x-ray from one day earlier and older studies. FINDINGS: Stable tracheostomy tube. Stable left-sided PICC line. Multifocal and confluent opacities redemonstrated with increased prominence in the bases again seen. Cardiac silhouette size stable and within normal limits. Osseous structures are intact. IMPRESSION: Multifocal and confluent opacities greatest in the lower lungs consistent with covid-19 i nfection are redemonstrated. No significant change from one day earlier.
[2020-10-03] MEDS: INSULIN ASPART (NovoLOG) 100 UNIT/ML VIAL SQ SCH ×3 (06:05→18:50)
[2020-10-03] MEDS: AMIODARONE 450 MG in DEXTROSE 5% IN WATER 250 ML IV SCH ×4 (06:17→18:53)
[2020-10-03] MEDS: ALBUTEROL HFA INHALER INHALATION SCH ×4 (07:20→19:13)
[2020-10-03] MEDS: METOPROLOL TARTRATE 12.5 MG TAB PO SCH (07:39)
[2020-10-03] MEDS ORDERED: METOPROLOL TARTRATE 12.5 MG TAB PO ONE (08:15)
--- NOTE | 2020-10-03 08:20 | US ---
EXAMINATION TYPE: US carotid duplex BILAT DATE OF EXAM: 10/03/2020 COMPARISON: CT neck without contrast 3 days ago CLINICAL HISTORY: Altered mental status, CVA. ICU patient with trachea; in isolation. EXAM MEASUREMENTS: LTD US due to equipment at neck. RIGHT: Peak Systolic Velocity (PSV) cm/sec ----- Right CCA: 79.3 ----- Right ICA: 89.7 ----- Right ECA: 91.0 ICA/CCA ratio: 1.1 RIGHT: End Diastole cm/sec ----- Right CCA: 12.5 ----- Right ICA: 21.5 ----- Right ECA: 0.0 LEFT: Peak Systolic Velocity (PSV) cm/sec ----- Left CCA: 62.9 ----- Left ICA: 91.4 ----- Left ECA: 79.4 ICA/CCA ratio: 1.5 LEFT: End Diastole cm/sec ----- Left CCA: 10.1 ----- Left ICA: 29.2 ----- Left ECA: 0.0 VERTEBRALS (direction of flow): Technologist was unable to assess vertebral artery flow bilaterally due to trachea equipment here at neck Rhythm: Normal Bilateral carotid bifurcation have very mild intimal wall thickening. IMPRESSION: Suboptimal study without significant plaque or stenosis in the carotid bulb level [id number] willams. Criteria for Assigning % of Stenosis / Diameter reduction (Estimation based on the indirect measurements of the internal carotid artery velocities (ICA PSV). 1. Normal (no stenosis)=ICA PSV < 125 cm/s: ratio < 2.0: ICA EDV<40 cm/s. 2. Less than 50% stenosis=ICA PSV < 125 cm/s: ratio < 2.0: ICA EDV<40 cm/s. 3. 50 to 69% stenosis=ICA PSV of 125 to 230 cm/s: ration 2.0 ? 4.0: ICA EDV 40-100 cm/s. 4. Greater than 70% stenosis to near occlusion= ICA PSV > 230 cm/s: ratio > 4.0: ICA EDV > 100 cm/s. 5. Near occlusion= ICA PSV velocities may be low or undetectable: variable ratio and ICA EDV. 6. Total occlusion=unable to detect flow.
[2020-10-03] MEDS: ASCORBIC ACID 500 MG TAB PO SCH ×2 (08:26→19:47)
[2020-10-03] MEDS: ATORVASTATIN 80 MG TAB PO SCH (08:26)
[2020-10-03] MEDS: predniSONE 20 MG TAB PO SCH (08:26)
[2020-10-03] MEDS: ZINC SULFATE 220 MG CAP PO SCH (08:26)
[2020-10-03] MEDS: ARTIFICIAL TEARS-HYPROMELLOSE DROPS 15 ML BTL BOTH EYES SCH ×4 (08:26→22:36)
[2020-10-03] MEDS: FAMOTIDINE 20 MG TAB PO SCH (08:26)
[2020-10-03] MEDS: ASPIRIN 81 MG PO SCH (08:26)
[2020-10-03] MEDS: CHOLECALCIFEROL 25 MCG (1000 IU) TABLET PO SCH (08:26)
[2020-10-03] MEDS: CHLORHEXIDINE GLUCONATE 15 ML CUP MUCOUS MEM SCH ×2 (08:27→19:47)
[2020-10-03] MEDS: HEPARIN SOD,PORK IN 0.45% NACL 25,000 UNIT in 0.45% NACL 1 250ML.BAG IV SCH (08:35)
--- NOTE | 2020-10-03 09:18 | P.PN ---
Subjective This is a pleasant 54-year-old male past medical history significant for hypertension, gout, GERD, former nicotine dependence and obesity. He has no documented prior history of coronary artery disease or arrhythmia. He is currently being treated for COVID 19 and maintained on mechanical ventilation. We saw him initially for elevated troponins and have been asked to see him again today due to new onset arrhythmia. Telemetry tracings indicate his heart rate went high this morning and was initially thought to be SVT. Adenosine was given and when he initially slowed down it became clear that he was in atrial flutter. Cardizem was initiated and his blood pressure could not tolerate so it was stopped. Heart rates continued in the 160's and Dr. Chin ordered a cardioversion. Currently he is in atrial fibrillation with heart rates between 90-110. Blood pressure 100/60. Laboratory data reviewed, WBC 25.4, hemoglobin 10.2, d-dimer 3.6, sodium 144, potassium 4.6, creatinine 2.08, C-reactive protein 20.4, lactate 2456. 10/03/2020 Pt seen and evaluated resting comfortably in bed in no distress. He continues to be on mechanical ventilation. He is not on sedation or paralytics currently. Telemetry reveals he continues to be in atrial flutter with mostly controlled ventricular rates. Blood pressure 140/62. GENERAL: Maintained on mechanical ventilation, unresponsive NECK: Supple without JVD or thyromegaly. Dry blood noted around his mouth. EXTREMITIES: No edema. No clubbing or cyanosis. Peripheral pulses intact. ASSESSMENT New onset paroxysmal atrial fibrillation with rapid ventricular response Typical atrial flutter COVID 19 PLAN Increase lopressor to 25 mg BID, given additional dose of 12.5 mg now. Transition to oral amiodarone when infusion is complete. Nurse Practitioner note has been reviewed, I agree with a documented findings and plan of care. Patient was seen and examined. Objective - Vital Signs Vital signs: Vital Signs Temp 99.1 F 10/03/20 08:00 Pulse 87 10/03/20 08:00 Resp 32 H 10/03/20 08:00 BP 124/64 10/03/20 08:00 Pulse Ox 92 L 10/03/20 08:00 Intake & Output 10/02/20 10/03/20 10/03/20 18:59 06:59 18:59 Intake Total 2896 2117.864 170.746 Output Total 340 360 Balance 2556 1757.864 170.746 Weight 101.8 kg Intake: IV 930 1014 .45 900 975 Pressure bag 30 39 Intake, IV Titration 1150 269.864 170.746 Amount Amiodarone 450 mg In 204.449 Dextrose 5% in Water 250 ml @ 0.5 MG/MIN 16.667 mls/hr IV .Q15H [facility] Rx#: [id number] Heparin Sod,Pork in 0.45% 65.415 170.746 NaCl 25,000 unit In 0.45 % NaCl 1 250ml.bag @ 10. 75 UNITS/KG/HR 9.987 mls/ hr IV .Q24H [facility] Rx#: [id number] Linezolid 600 mg In 150 Dextrose/Water 1 300ml. bag @ 150 mls/hr IVPB Q12HR [facility] Rx#:[id number] Sodium Chloride 0.9% 1, 1000 000 ml @ 999 mls/hr IV . Q1H1M [facility] Rx#:[id number] Tube Feeding 216 234 Other 600 600 Output: Urine 340 360 Stool 0 Other: Voiding Method Indwelling Catheter Indwelling Catheter ABP, PAP, CO, CI - Last Documented Arterial Blood Pressure 129/60 - Labs CBC & Chem 7: 10/03/20 04:47 10/03/20 04:47 Labs: Abnormal Lab Results - Last 24 Hours (Table) 10/02/20 10/02/20 10/02/20 Range/Units 05:00 08:15 11:24 WBC (3.8-10.6) k/uL RBC (4.30-5.90) m/uL Hgb (13.0-17.5) gm/dL Hct (39.0-53.0) % RDW (11.5-15.5) % Plt Count (150-450) k/uL Neutrophils # (1.3-7.7) k/uL Lymphocytes # (1.0-4.8) k/uL APTT (22.0-30.0) sec ABG pH (7.35-7.45) ABG pCO2 (35-45) mmHg ABG pO2 (83-108) mmHg ABG Total CO2 (19-24) mmol/L BUN (9-20) mg/dL Creatinine (0.66-1.25) mg/dL Glucose (74-99) mg/dL POC Glucose (mg/dL) 150 H (75-99) mg/dL Hemoglobin A1c 6.6 H (4.0-6.0) % Calcium (8.4-10.2) mg/dL AST (17-59) U/L ALT (4-49) U/L Alkaline Phosphatase (38-126) U/L Total Protein (6.3-8.2) g/dL Albumin (3.5-5.0) g/dL Procalcitonin 0.61 H (0.02-0.09) ng/mL 10/02/20 10/02/20 10/02/20 Range/Units 18:25 18:29 23:15 WBC (3.8-10.6) k/uL RBC (4.30-5.90) m/uL Hgb (13.0-17.5) gm/dL Hct (39.0-53.0) % RDW (11.5-15.5) % Plt Count (150-450) k/uL Neutrophils # (1.3-7.7) k/uL Lymphocytes # (1.0-4.8) k/uL APTT 32.0 H (22.0-30.0) sec ABG pH (7.35-7.45) ABG pCO2 (35-45) mmHg ABG pO2 (83-108) mmHg ABG Total CO2 (19-24) mmol/L BUN (9-20) mg/dL Creatinine (0.66-1.25) mg/dL Glucose (74-99) mg/dL POC Glucose (mg/dL) 165 H 171 H (75-99) mg/dL Hemoglobin A1c (4.0-6.0) % Calcium (8.4-10.2) mg/dL AST (17-59) U/L ALT (4-49) U/L Alkaline Phosphatase (38-126) U/L Total Protein (6.3-8.2) g/dL Albumin (3.5-5.0) g/dL Procalcitonin (0.02-0.09) ng/mL 10/03/20 10/03/20 10/03/20 Range/Units 01:00 04:47 04:47 WBC 23.1 H (3.8-10.6) k/uL RBC 2.69 L (4.30-5.90) m/uL Hgb 8.5 L D (13.0-17.5) gm/dL Hct 25.5 L (39.0-53.0) % RDW 16.4 H (11.5-15.5) % Plt Count 104 L (150-450) k/uL Neutrophils # 22.0 H (1.3-7.7) k/uL Lymphocytes # 0.5 L (1.0-4.8) k/uL APTT 55.4 H 53.6 H (22.0-30.0) sec ABG pH (7.35-7.45) ABG pCO2 (35-45) mmHg ABG pO2 (83-108) mmHg ABG Total CO2 (19-24) mmol/L BUN (9-20) mg/dL Creatinine (0.66-1.25) mg/dL Glucose (74-99) mg/dL POC Glucose (mg/dL) (75-99) mg/dL Hemoglobin A1c (4.0-6.0) % Calcium (8.4-10.2) mg/dL AST (17-59) U/L ALT (4-49) U/L Alkaline Phosphatase (38-126) U/L Total Protein (6.3-8.2) g/dL Albumin (3.5-5.0) g/dL Procalcitonin (0.02-0.09) ng/mL 10/03/20 10/03/20 Range/Units 04:47 04:55 WBC (3.8-10.6) k/uL RBC (4.30-5.90) m/uL Hgb (13.0-17.5) gm/dL Hct (39.0-53.0) % RDW (11.5-15.5) % Plt Count (150-450) k/uL Neutrophils # (1.3-7.7) k/uL Lymphocytes # (1.0-4.8) k/uL APTT (22.0-30.0) sec ABG pH 7.31 L (7.35-7.45) ABG pCO2 50 H (35-45) mmHg ABG pO2 77 L (83-108) mmHg ABG Total CO2 27 H (19-24) mmol/L BUN 105 H* (9-20) mg/dL Creatinine 2.39 H (0.66-1.25) mg/dL Glucose 110 H (74-99) mg/dL POC Glucose (mg/dL) (75-99) mg/dL Hemoglobin A1c (4.0-6.0) % Calcium 7.8 L (8.4-10.2) mg/dL AST 348 H (17-59) U/L ALT 324 H (4-49) U/L Alkaline Phosphatase 128 H (38-126) U/L Total Protein 4.9 L (6.3-8.2) g/dL Albumin 2.4 L (3.5-5.0) g/dL Procalcitonin (0.02-0.09) ng/mL
--- NOTE | 2020-10-03 09:29 | P.PN ---
Subjective Progress Note Date: 10/03/20 09/29/2020 the patient is being seen in follow-up. The patient is an acute hypoxic respiratory failure secondary to COVID-19 limited pneumonia. The patient is post intubation mechanical ventilation as of 09/12/2020. The patient undergone tracheostomy and PEG tube insertion 09/22/2020. During the course of the treatment, the patient received a combination of steroids, convalescent plasma and Tocilizumab. The patient continues to be on IV Solu-Medrol 40 mg IV every 8 hours. The patient is also on Lovenox 40 mg subcu to 24 hours. The LDH level from 09/27/2000 was 1528 and the patient's CRP level was 13.5. Renal function stable. The patient remains in intensive care unit and the patient is ventilator dependent. The patient remains on mechanical ventilator on assist control mode rate of 32 with a tidal volume of 420, fio2 50% with a PEEP of 13. The peak airway pressure is around 37. Static pressures around 33. He does have a foul-smelling odor from his mouth. He has a Bivona tracheostomy tube #7. Patient is sedated with propofol running at 40 mcg/kg per minute and fentanyl at 1.5 mg/kg/h. IV fluids are running at KVO and the patient is receiving enteral feeding for nutritional support utilizing Nepro 25 mL every 24 hours if the patient is also on Cleviprex for blood pressure control and he is off the medication. Chest x-ray showing but the pulmonary infiltrates involving the mid and lower lobes bilaterally quite dense and lower lobes. Patient's tracheostomy tube is in a good location. Hemodynamically stable on no pressors. Attempts to wean him off the sedation has failed and the patient became tachycardic and he has required Cleviprex on and off. Nevertheless, Cleviprex is made in become tachycardic. On 09/30/2020 by the patient is completely of sedation for the past 24 hours. Note that prior attempts to get this patient off sedation at failure the patient was developing an acute hypertensive reaction and ultimately I was able to get him off the propofol and fentanyl yesterday and he does have labetalol as a backup which was never used as the patient remained normotensive during the process. His been off sedation for at least 16 hours. Neurologically, significantly impaired, completely unresponsive, barely any cough or gag and limited particularly response. Does not respond to any verbal or painful stimulation. He remains on a mechanical ventilator. This morning he is an assist-control mode at the rate of 32 with a tidal volume of 420 and FiO2 of 50% with a PEEP of 13. The blood gases from today is still pending. Meanwhile, the chest x-ray shows essentially stable findings with a Bivona tracheostomy tube in place and there is still persistent but the pulmonary infiltrates, essentially unchanged compared to yesterday. Another issue is the halitosis as the patient has a bad odor coming from his mouth. There is some purulent secretions around the tracheostomy tube that was noted at the same time there is some bleeding this coming from his mouth and the patient has required frequent suctioning. I noted the canister and that is probably around 200 mL of bloody material collected since yesterday. His white cell count is at 21. The patient is on IV cefepime. Focused on is obtained from yesterday was 0.19. Otherwise, rest of the electrodes are showing a component of hyperchloremic hypernatremia. Sodium is at 147. Creatinine is 0.9. LDH from yesterday was 2371. The patient currently is IV Solu-Medrol 40 mg every 8 hours. The patient is also on Lovenox 40 mg subcu to 24 hours. As mentioned, his been off sedation and off paralytics. Enteral feeding for nutritional support is through Nepro via PEG tube at the rate of 18 mL an hour On 10/01/2020, the patient remains unresponsive despite being off sedation for 48 hours. He is off paralytics. He is off propofol. He is off fentanyl. Penicillin significant or reasonable neurological recovery yet. The patient has brainstem reflexes. Nevertheless, the patient is not responding to any painful stimulation. Does not respond to any verbal commands. Does not open up his eyes spontaneously. Does not move his extremities spontaneously. The CAT scan of the head that was done on 09/30/2020 showed age-related atrophy with chronic small vessel ischemic change without any acute process. He is on mechanical ventilator. He remains on assist control mode at the rate of 32 with a tidal volume of 420 and the respiratory rate of 32 with an FiO2 of 50% with a PEEP of 13. Blood gases from today showed a pH of 7.36 with a pCO2 of 56 with a pO2 of 62 and this is essentially the same as yesterday without any major interval change. Chest x-ray from today is showing diffuse bilateral pulmonary infiltrates, unchanged and the patient has a tracheostomy tube in place which is in the 1 tracheostomy tube #7. No evidence of any pneumothorax. He also CAT s can of the neck yesterday that showed tracheostomy tube in good location. The CAT scan of the neck was essentially on remarkable. The lungs showed patchy groundglass airspace disease bilaterally, he has slightly improved compared to the prior study. Small effusions were also noted. Mediastinum was essentially within normal limits. The patient's LDH level is at 2244 and a CRP level is at 20.5. Creatinine is at 1.3 which is a rise compared to yesterday and the White counts was a 22.7 with a hemoglobin of 9.6. He is currently on prednisone 40 mg by mouth daily. He is on Lovenox 40 mg subcu every 24 hours. His net fluid balance is -560 mL over the past 24 hours. Enteral feeding is in the form of Nepro at the rate of 80 mL an hour. He is also having IV fluids in the form of normal saline running at 75 mL an hour. Sodium level is 48 with a chloride level of 112. D-dimer level is at 3.48. 10/02/2020, the patient remains completely unresponsive. His been off sedatives and paralytics for the past 72 hours. No neurologic recovery. No responsiveness. He has a weak cough. Given her reflexes aren't impaired. Corneal reflexes are weak. Does not withdraw to painful stimulation. Does not have any spottiness eye-opening. Neurologic exam is essentially unchanged compared to yesterday. As of a neuro workup, the patient has already undergone a CAT scan of the brain that showed no acute abnormalities. Neurologic consultation be obtained based on his underlying unresponsiveness. EEG will be also obtained. He remains on a mechanical ventilator. This morning, he is on assist control mode at the rate of 32 with a tidal volume of 420 and a PEEP of 13 with an FiO2 of 50%. Chest x-ray showing some lateral lower lobe pulmonary infiltrates, and there is some worsening and infiltration on the right. The patient has a blood. This showed a pH of 7.35 with episodes of 51 and pO2 of 67. Protested troponin was mildly elevated at 0.19. The sputum was showing MRSA and there is a concern that the patient is developing a superinfection on a ventilator associated pneumonia knowing that there is a new infiltration in the right lower lobe and the patient has developed some new onset leukocytosis and a white cell count is currently up to 25.4. In terms of COVID-19 related pneumonia, the patient's d-dimer is at 3.6, LDH level is 2456 with a CRP of 20.4. The patient is currently on Lovenox 40 mg subcu on a daily basis and the patient is also on prednisone 40 mg oral. Since yesterday, the patient also has developed an acute kidney injury. Creatinine is up to 2. Urine output is not or that of 30 mL an hour and the net fluid balance over the past 24 hours has been +2 L. IV fluids running at a rate of 75 mL of half-normal saline. The sodium level is down to 144. BUN is at 96 with a creatinine of 2.08. Liver function tests have been essentially within normal limits. The patient is having diarrhea output has been ordered of 400 mL over the past 12 hours. He is currently receiving enteral feeding in the form of Nepro at the rate of 18 mL an hour. 10/03/2020, the patient has been off sedation and paralytics since 10/12/2020 and this makes it approximately 96 hours. Neurologically, still unresponsive, he is at the point it is opening up his eyes , and the patient is not following commands, is not moving his extremities, does not grimace to painful s timulation, brainstem reflexes are still weak although he does have a weak cough and positive pupillary reflex with sluggish corneals. Neurologist on the case. EEG was done and it was consistent with metabolic encephalopathy. Specifically, the EEG showed background slowing and generalized cerebral dysfunction. No seizure activity was noted. A contrast enhanced CAT scan of the brain to be done today. Carotid Dopplers were within normal and negative for any hemodynamically significant carotid artery stenosis. Meanwhile, the patient is on a mechanical ventilator. Vent settings are essentially the same with a rate of 32, tidal volume of 420 and a PEEP of 13 with an FiO2 of 50%. Blood pressure with a pH of 7.31 with a pCO2 of 50 and pO2 of 77. Chest x-ray findings are essentially unchanged and the patient has stable bilateral pulmonary infiltrates and a tracheostomy tube is in a good location. No significant orotracheal secretions. . Cultured MRSA in his sputum. Due to concern of superinfection and the focus is on level of 0.6, I started the patient on Zyvox yesterday 600 mg IV every 12 hours. He does have halitosis and the workup has been essentially negative including CAT scan of his neck. Note that the most recent CAT scan of the chest was showing some limited improvement in the right infiltrates related to COVID-19 related pneumonia. The patient's inflammatory markers are showing an elevated LDH from yesterday of 2456 and a CRP level of 20.4. Unfortunately, he has developed an acute kidney injury. The findings on the case. Creatinine is up to 2.3 and the BUN of 106. The patient is currently receiving IV fluids and the patient is on half-normal saline at the rate of 75 mL's an hour. The fluid balance over the past 24 hours has been +1.1 L. No major electrolyte disturbance. There is a drop in hemoglobin without evidence of any GI bleed. Hemoglobin today is at 8.5 with a white cell count of 23 and was supposed much comparable to yesterday's counts. He is platelet count is also low at 104. He had he remains on prednisone 40 mg by mouth daily. He remains on anticoagulation as the patient had a cardiac is this yesterday when he went into atrial flutter with rapid ventricular response and during that time the patient became hemodynamically unstable and he dropped his systolic blood pressure down to the mid 60s. At that point, he received an immediate cardioversion with subsequent improvement in his hemodynamics. Based on that event, the patient was kept on IV heparin per cardiac recommendation. He did have a few more episodes since then it was self-limiting and nonsustained. He was started on amiodarone drip and conjunction with IV heparin and amiodarone currently running at 0.5 mg per minute and the patient is also on metoprolol 25 mg by mouth twice a day. Objective - Vital Signs Vital signs: Vital Signs Temp 99.1 F 10/03/20 08:00 Pulse 87 10/03/20 08:00 Resp 32 H 10/03/20 08:00 BP 124/64 10/03/20 08:00 Pulse Ox 92 L 10/03/20 08:00 Intake & Output 10/02/20 10/03/20 10/03/20 18:59 06:59 18:59 Intake Total 2896 2117.864 170.746 Output Total 340 360 Balance 2556 1757.864 170.746 Weight 101.8 kg Intake: IV 930 1014 .45 900 975 Pressure bag 30 39 Intake, IV Titration 1150 269.864 170.746 Amount Amiodarone 450 mg In 204.449 Dextrose 5% in Water 250 ml @ 0.5 MG/MIN 16.667 mls/hr IV .Q15H [facility] Rx#: [id number] Heparin Sod,Pork in 0.45% 65.415 170.746 NaCl 25,000 unit In 0.45 % NaCl 1 250ml.bag @ 10. 75 UNITS/KG/HR 9.987 mls/ hr IV .Q24H [facility] Rx#: [id number] Linezolid 600 mg In 150 Dextrose/Water 1 300ml. bag @ 150 mls/hr IVPB Q12HR [facility] Rx#:[id number] Sodium Chloride 0.9% 1, 1000 000 ml @ 999 mls/hr IV . Q1H1M [facility] Rx#:[id number] Tube Feeding 216 234 Other 600 600 Output: Urine 340 360 Stool 0 Other: Voiding Method Indwelling Catheter Indwelling Catheter ABP, PAP, CO, CI - Last Documented Arterial Blood Pressure 129/60 - Exam GENERAL EXAM: Intubated, sedated 54-year-old gentleman, on mechanical ventilator current FiO2 50%, comfortable in no acute distress. The patient has a Bivona tracheostomy tube in place and is off sedation. Completely unresponsive and seems to be in a comatose state. HEAD: Normocephalic. EYES: Sluggish reaction of pupils, equal size. NOSE: Clear with pink turbinates. THROAT: No erythema or exudates. NECK: No masses, no JVD. CHEST: No chest wall deformity. LUNGS: Equal air entry with crackles in the bilateral posterior bases. CVS: S1 and S2 normal with no audible murmur, regular rhythm. ABDOMEN: No hepatosplenomegaly, normal bowel sounds, no guarding or rigidity. The PEG tube is in a good location. SPINE: No scoliosis or deformity SKIN: No rashes CENTRAL NERVOUS SYSTEM: Patient is completely unresponsive, pupils around to the 3 mm in size, sluggishly reactive to light, no corneal reflexes, very sluggish pupillary reflex, motor functions and all 4 extremities, does not withdraw to any painful stimulation. Neurologic exam remains unchanged. Brain Stem reflexes are present. Completely unresponsive. No significant change in his ne uro status since yesterday. EXTREMITIES: There is no peripheral edema. No clubbing, no cyanosis. P eripheral pulses are intact. - Labs CBC & Chem 7: 10/03/20 04:47 10/03/20 04:47 Labs: Abnormal Lab Results - Last 24 Hours (Table) 10/02/20 10/02/20 10/02/20 Range/Units 05:00 08:15 11:24 WBC (3.8-10.6) k/uL RBC (4.30-5.90) m/uL Hgb (13.0-17.5) gm/dL Hct (39.0-53.0) % RDW (11.5-15.5) % Plt Count (150-450) k/uL Neutrophils # (1.3-7.7) k/uL Lymphocytes # (1.0-4.8) k/uL APTT (22.0-30.0) sec ABG pH (7.35-7.45) ABG pCO2 (35-45) mmHg ABG pO2 (83-108) mmHg ABG Total CO2 (19-24) mmol/L BUN (9-20) mg/dL Creatinine (0.66-1.25) mg/dL Glucose (74-99) mg/dL POC Glucose (mg/dL) 150 H (75-99) mg/dL Hemoglobin A1c 6.6 H (4.0-6.0) % Calcium (8.4-10.2) mg/dL AST (17-59) U/L ALT (4-49) U/L Alkaline Phosphatase (38-126) U/L Total Protein (6.3-8.2) g/dL Albumin (3.5-5.0) g/dL Procalcitonin 0.61 H (0.02-0.09) ng/mL 10/02/20 10/02/20 10/02/20 Range/Units 18:25 18:29 23:15 WBC (3.8-10.6) k/uL RBC (4.30-5.90) m/uL Hgb (13.0-17.5) gm/dL Hct (39.0-53.0) % RDW (11.5-15.5) % Plt Count (150-450) k/uL Neutrophils # (1.3-7.7) k/uL Lymphocytes # (1.0-4.8) k/uL APTT 32.0 H (22.0-30.0) sec ABG pH (7.35-7.45) ABG pCO2 (35-45) mmHg ABG pO2 (83-108) mmHg ABG Total CO2 (19-24) mmol/L BUN (9-20) mg/dL Creatinine (0.66-1.25) mg/dL Glucose (74-99) mg/dL POC Glucose (mg/dL) 165 H 171 H (75-99) mg/dL Hemoglobin A1c (4.0-6.0) % Calcium (8.4-10.2) mg/dL AST (17-59) U/L ALT (4-49) U/L Alkaline Phosphatase (38-126) U/L Total Protein (6.3-8.2) g/dL Albumin (3.5-5.0) g/dL Procalcitonin (0.02-0.09) ng/mL 10/03/20 10/03/20 10/03/20 Range/Units 01:00 04:47 04:47 WBC 23.1 H (3.8-10.6) k/uL RBC 2.69 L (4.30-5.90) m/uL Hgb 8.5 L D (13.0-17.5) gm/dL Hct 25.5 L (39.0-53.0) % RDW 16.4 H (11.5-15.5) % Plt Count 104 L (150-450) k/uL Neutrophils # 22.0 H (1.3-7.7) k/uL Lymphocytes # 0.5 L (1.0-4.8) k/uL APTT 55.4 H 53.6 H (22.0-30.0) sec ABG pH (7.35-7.45) ABG pCO2 (35-45) mmHg ABG pO2 (83-108) mmHg ABG Total CO2 (19-24) mmol/L BUN (9-20) mg/dL Creatinine (0.66-1.25) mg/dL Glucose (74-99) mg/dL POC Glucose (mg/dL) (75-99) mg/dL Hemoglobin A1c (4.0-6.0) % Calcium (8.4-10.2) mg/dL AST (17-59) U/L ALT (4-49) U/L Alkaline Phosphatase (38-126) U/L Total Protein (6.3-8.2) g/dL Albumin (3.5-5.0) g/dL Procalcitonin (0.02-0.09) ng/mL 10/03/20 10/03/20 Range/Units 04:47 04:55 WBC (3.8-10.6) k/uL RBC (4.30-5.90) m/uL Hgb (13.0-17.5) gm/dL Hct (39.0-53.0) % RDW (11.5-15.5) % Plt Count (150-450) k/uL Neutrophils # (1.3-7.7) k/uL Lymphocytes # (1.0-4.8) k/uL APTT (22.0-30.0) sec ABG pH 7.31 L (7.35-7.45) ABG pCO2 50 H (35-45) mmHg ABG pO2 77 L (83-108) mmHg ABG Total CO2 27 H (19-24) mmol/L BUN 105 H* (9-20) mg/dL Creatinine 2.39 H (0.66-1.25) mg/dL Glucose 110 H (74-99) mg/dL POC Glucose (mg/dL) (75-99) mg/dL Hemoglobin A1c (4.0-6.0) % Calcium 7.8 L (8.4-10.2) mg/dL AST 348 H (17-59) U/L ALT 324 H (4-49) U/L Alkaline Phosphatase 128 H (38-126) U/L Total Protein 4.9 L (6.3-8.2) g/dL Albumin 2.4 L (3.5-5.0) g/dL Procalcitonin (0.02-0.09) ng/mL Assessment and Plan Plan: 1 Acute hypoxemic respiratory failure secondary to COVID 19 pneumonitis. Required intubation on 09/12/2020. Had undergone tracheostomy and PEG tube placement on 09/22/2020. Did receive tocilizumab and convalescent plasma, remains currently on prednisone orally 40 mg by mouth daily. Chest x-ray findings are showing diffuse but the pulmonary infiltrates, unchanged and the patient's overall respiratory status remains stable and unchanged over the past few days. Active issues for now remains in his altered mentation, comatose state, and his level of consciousness, acute kidney injury and episodes of atrial flutter that the current as of yesterday. Chest x-ray from today showing stable bilateral pulmonary infiltrates. He does have MRSA in his sputum and he was started on Zyvox accordingly. 2 MRSA pneumonia, clinically suspected, consider a hospital-acquired/ventilator associated pneumonia. The patient has developed new onset leukocytosis in addition. Calcitonin level is mildly elevated and the patient was started on Zyvox 3 unresponsive, comatose state with present brainstem reflexes and absent c ortical functions. CAT scan of the brain is essentially showing no acute abnormalities. EEG is consistent with metabolic encephalopathy without any seizure activity. Carotid Dopplers are unchanged. The patient neurologic status remains profoundly impaired. 4 non-STEMI with troponin max of 6.5, echocardiogram with moderate concentric LVH 5 enteral feeding for nutritional support through a PEG tube. The patient is receiving enteral feeding for nutritional support via Nepro 6 acute kidney injury creatinine is on the rise and the patient is retaining fluid with diminished urine output. Nephrology will be asked to evaluate this patient. 7 foul smelling odor from his mouth, halitosis along with some bleeding around the tracheostomy site. CAT scan of the neck shows no acute abnormalities. Tracheostomy tube is in good location and there are no neck or pharyngeal abscesses. 8 hypernatremia, sodium level is nebulized at 138 and the patient is on IV fluids in the form of half normal at the rate of 75 mL an hour. The free water flushes can be discontinued. 9 History of hypertension. 10 acute leukocytosis was stable white count 11 diarrhea improved while the patient off lactulose she had a negative C. diff evaluation. 12 new atrial flutter with rapid ventricular response, currently back in a normal sinus rhythm. The patient is on amiodarone drip 0.5 mg per minute and t he patient will be transitioned to oral amiodarone and the patient is also on IV heparin. The patient is post cardioversion yesterday. Plan: Keep the patient off sedation, monitor neurologic function remains comatose and unresponsive for the past 96 hours Able to do a contrast enhanced CAT scan of the brain. This will be discussed with neurology. May need to repeated without contrast. Obtain EEG was consistent with metabolic encephalopathy Treatment MRSA pneumonia with Zyvox 600 mg IV every 12 hours Discontinue free water flushes Start the patient on IV Lasix 80 mg every 12 hours Continue enteral feeding for nutritional support Continue half-normal saline at the rate of 75 mL an hour Consult nephrology Keep the patient prednisone 40 mg by mouth daily Monitor inflammatory markers Amiodarone and switch it to by mouth amiodarone and keep the IV heparin for now. Awaiting the progression of the renal failure to decide on long-term anticoagulation at a later stage. Critical condition We'll continue to follow critically care evaluation, more than 30 minutes. Time with Patient: Greater than 30
[2020-10-03] MEDS: LINEZOLID 600 MG in DEXTROSE/WATER 1 300ML.BAG IVPB SCH ×2 (10:18→19:47)
[2020-10-03] MEDS: FUROSEMIDE 10 MG/ML 10 ML VIAL IV SCH ×2 (10:19→19:47)
--- NOTE | 2020-10-03 10:31 | US ---
EXAMINATION TYPE: US kidneys/renal and bladder DATE OF EXAM: 10/03/2020 COMPARISON: None. CLINICAL HISTORY: ARF. ICU covid patient, intubated, martinez EXAM MEASUREMENTS: Right Kidney: 13.0 x 6.4 x 7.0 cm Left Kidney: 12.3 x 5.3 x 7.3 cm Right Kidney: Multiple cysts seen. Largest mid= 6.0 x 4.8 x 6.1 cm. Largest lower= 5.4 x 6.6 x 6.0 cm. Left Kidney: Cyst seen mid= 3.1 x 2.4 x 2.8 cm Bladder: not visualized due to martinez Suboptimal study. Poor visualization of the majority of left kidney. Scattered thin-walled exophytic cysts identified on images saved. IMPRESSION: No hydronephrosis is noted bilaterally.
--- NOTE | 2020-10-03 11:25 | P.PN ---
Subjective Progress Note Date: 10/03/20 CHIEF COMPLAINT: COVID-19 pneumonia HISTORY OF PRESENT ILLNESS: Patient is in the ICU and is intubated. He is status post tracheostomy and PEG tube placement. Patient is tolerating tube feedings. No residual reported. Patient is currently off of sedation per nursing patient did open eyes. He went atrial fibrillation with rapid ventricular response was placed on IV heparin and amiodarone. Followed by cardiology. Nephrology consulted regarding worsening renal function. Afebrile. WBC 23.1 creatinine 2.39 drainage culture from PEG tube site pending. Patient also followed by nephrology regarding metabolic encephalopathy PHYSICAL EXAM: VITAL SIGNS: Reviewed. GENERAL: Well-developed in no acute distress. HEENT: Moist buccal mucosa. Head is atraumatic, normocephalic. Tracheostomy site clean dry and intact ABDOMEN: Soft. Nondistended. Nontender. PEG tube site with drainage noted NEUROLOGIC: Intubated ASSESSMENT: 1. Acute hypoxic respiratory failure due to COVID-19 pneumonia with prolonged mechanical ventilation status post tracheostomy placement 2. Moderate protein calorie malnutrition status post PEG tube placement PLAN: -Continue tube feedings -Continue supportive care -Continue ICU management Physician [employer] note has been reviewed by physician. Signing provider agrees with the documented findings, assessment, and plan of care. Objective - Vital Signs Vital signs: Vital Signs Temp 99.1 F 10/03/20 08:00 Pulse 98 10/03/20 11:00 Resp 32 H 10/03/20 11:00 BP 113/69 10/03/20 11:00 Pulse Ox 91 L 10/03/20 11:00 Intake & Output 10/02/20 10/03/20 10/03/20 18:59 06:59 18:59 Intake Total 2896 2117.864 816.746 Output Total 340 360 120 Balance 2556 1757.864 696.746 Weight 101.8 kg 101.8 kg Intake: IV 930 1014 312 .45 900 975 300 Pressure bag 30 39 12 Intake, IV Titration 1150 269.864 170.746 Amount Amiodarone 450 mg In 204.449 Dextrose 5% in Water 250 ml @ 0.5 MG/MIN 16.667 mls/hr IV .Q15H [facility] Rx#: [id number] Heparin Sod,Pork in 0.45% 65.415 170.746 NaCl 25,000 unit In 0.45 % NaCl 1 250ml.bag @ 10. 75 UNITS/KG/HR 9.987 mls/ hr IV .Q24H [facility] Rx#: [id number] Linezolid 600 mg In 150 Dextrose/Water 1 300ml. bag @ 150 mls/hr IVPB Q12HR [facility] Rx#:[id number] Sodium Chloride 0.9% 1, 1000 000 ml @ 999 mls/hr IV . Q1H1M [facility] Rx#:[id number] Tube Feeding 216 234 84 Other 600 600 250 Output: Urine 340 360 120 Stool 0 Other: Voiding Method Indwelling Catheter Indwelling Catheter ABP, PAP, CO, CI - Last Documented Arterial Blood Pressure 118/60 - Labs CBC & Chem 7: 10/03/20 04:47 10/03/20 04:47 Labs: Abnormal Lab Results - Last 24 Hours (Table) 10/02/20 10/02/20 10/02/20 Range/Units 05:00 08:15 11:24 WBC (3.8-10.6) k/uL RBC (4.30-5.90) m/uL Hgb (13.0-17.5) gm/dL Hct (39.0-53.0) % RDW (11.5-15.5) % Plt Count (150-450) k/uL Neutrophils # (1.3-7.7) k/uL Lymphocytes # (1.0-4.8) k/uL APTT (22.0-30.0) sec ABG pH (7.35-7.45) ABG pCO2 (35-45) mmHg ABG pO2 (83-108) mmHg ABG Total CO2 (19-24) mmol/L BUN (9-20) mg/dL Creatinine (0.66-1.25) mg/dL Glucose (74-99) mg/dL POC Glucose (mg/dL) 150 H (75-99) mg/dL Hemoglobin A1c 6.6 H (4.0-6.0) % Calcium (8.4-10.2) mg/dL AST (17-59) U/L ALT (4-49) U/L Alkaline Phosphatase (38-126) U/L Total Protein (6.3-8.2) g/dL Albumin (3.5-5.0) g/dL Procalcitonin 0.61 H (0.02-0.09) ng/mL 10/02/20 10/02/20 10/02/20 Range/Units 18:25 18:29 23:15 WBC (3.8-10.6) k/uL RBC (4.30-5.90) m/uL Hgb (13.0-17.5) gm/dL Hct (39.0-53.0) % RDW (11.5-15.5) % Plt Count (150-450) k/uL Neutrophils # (1.3-7.7) k/uL Lymphocytes # (1.0-4.8) k/uL APTT 32.0 H (22.0-30.0) sec ABG pH (7.35-7.45) ABG pCO2 (35-45) mmHg ABG pO2 (83-108) mmHg ABG Total CO2 (19-24) mmol/L BUN (9-20) mg/dL Creatinine (0.66-1.25) mg/dL Glucose (74-99) mg/dL POC Glucose (mg/dL) 165 H 171 H (75-99) mg/dL Hemoglobin A1c (4.0-6.0) % Calcium (8.4-10.2) mg/dL AST (17-59) U/L ALT (4-49) U/L Alkaline Phosphatase (38-126) U/L Total Protein (6.3-8.2) g/dL Albumin (3.5-5.0) g/dL Procalcitonin (0.02-0.09) ng/mL 10/03/20 10/03/20 10/03/20 Range/Units 01:00 04:47 04:47 WBC 23.1 H (3.8-10.6) k/uL RBC 2.69 L (4.30-5.90) m/uL Hgb 8.5 L D (13.0-17.5) gm/dL Hct 25.5 L (39.0-53.0) % RDW 16.4 H (11.5-15.5) % Plt Count 104 L (150-450) k/uL Neutrophils # 22.0 H (1.3-7.7) k/uL Lymphocytes # 0.5 L (1.0-4.8) k/uL APTT 55.4 H 53.6 H (22.0-30.0) sec ABG pH (7.35-7.45) ABG pCO2 (35-45) mmHg ABG pO2 (83-108) mmHg ABG Total CO2 (19-24) mmol/L BUN (9-20) mg/dL Creatinine (0.66-1.25) mg/dL Glucose (74-99) mg/dL POC Glucose (mg/dL) (75-99) mg/dL Hemoglobin A1c (4.0-6.0) % Calcium (8.4-10.2) mg/dL AST (17-59) U/L ALT (4-49) U/L Alkaline Phosphatase (38-126) U/L Total Protein (6.3-8.2) g/dL Albumin (3.5-5.0) g/dL Procalcitonin (0.02-0.09) ng/mL 10/03/20 10/03/20 Range/Units 04:47 04:55 WBC (3.8-10.6) k/uL RBC (4.30-5.90) m/uL Hgb (13.0-17.5) gm/dL Hct (39.0-53.0) % RDW (11.5-15.5) % Plt Count (150-450) k/uL Neutrophils # (1.3-7.7) k/uL Lymphocytes # (1.0-4.8) k/uL APTT (22.0-30.0) sec ABG pH 7.31 L (7.35-7.45) ABG pCO2 50 H (35-45) mmHg ABG pO2 77 L (83-108) mmHg ABG Total CO2 27 H (19-24) mmol/L BUN 105 H* (9-20) mg/dL Creatinine 2.39 H (0.66-1.25) mg/dL Glucose 110 H (74-99) mg/dL POC Glucose (mg/dL) (75-99) mg/dL Hemoglobin A1c (4.0-6.0) % Calcium 7.8 L (8.4-10.2) mg/dL AST 348 H (17-59) U/L ALT 324 H (4-49) U/L Alkaline Phosphatase 128 H (38-126) U/L Total Protein 4.9 L (6.3-8.2) g/dL Albumin 2.4 L (3.5-5.0) g/dL Procalcitonin (0.02-0.09) ng/mL
[2020-10-03 11:37] LABS: Glucose,Whole Blood 131 mg/dL (75-99)
[2020-10-03] MEDS: AMIODARONE 200 MG TAB PO SCH ×2 (11:38→19:47)
[2020-10-03] MEDS: SODIUM CHLORIDE 0.45% 1,000 ML IV SCH (13:00)
[2020-10-03] MEDS ORDERED: DEXTROSE 5% IN WATER 100 ML with AMIODARONE 150 MG IV ONE (13:40)
--- NOTE | 2020-10-03 14:53 | P.PN ---
Subjective Progress Note Date: 10/03/20 This is a 54-year-old male who was recently admitted with acute hypoxic respiratory failure secondary to COVID-19 pneumonia and is being closely monitored. Continues to remain on mechanical ventilation currently sedated. Patient has had prolonged hospitalization with unsuccessful attempts at weaning and surgery has been consulted for tracheostomy along with PEG tube placement. Patient was on D5 water for hypernatremia and will be discontinued. Tube feedings on hold for surgery today and will resume once PEG tube is okay for use. Per nursing staff patient has also been in the prone position since yesterday evening into this morning and tolerated. Amiodarone has also been discontinued as patient is currently bradycardic. Pulmonary hospice care sales consultant following closely. Patient is maintained on sliding scale and will monitor closely once tube feedings have resumed. 09/23/2020 Patient is seen in follow-up continues to be closely monitored in the ICU maintained on mechanical vent via tracheostomy as he underwent trach and PEG tube placement yesterday with surgery. Tube feedings to resume via PEG tube this afternoon after clearance from surgery. Chest x-ray today shows bilateral multifocal and confluent opacities left greater than right consistent with COVID-19 again redemonstrated with no significant change from yesterday. Pulmonary also following. White blood count at 20.9, hemoglobin is 11.3, current sodium is 138 with a potassium of 5.2, and creatinine is 0.83. 09/24/2020 Patient continues to be intubated and sedated in the ICU status post tracheostomy and PEG tube placement. Tube feedings have been resumed and patient is tolerating. Chest x-ray today shows continued patchy airspace infiltrates although there is interval improvement noted. Pulmonary following closely. White blood count slightly elevated at 23.2 patient is maintained on IV Solu-Medrol every 6 hours. Sodium 143 with a potassium of 5.0 and current creatinine is 0.84. 09/25/2020 Patient continues to be in the ICU on mechanical ventilation intubated via tracheostomy and continued on sedation and is being closely monitored. PEEP being titrated down slowly and patient continues on Nimbex along with propofol and fentanyl. White blood count on a downward trend 17.2 with hemoglobin of 9.7, sodium is 144 with a potassium of 4.9 and current creatinine is 0.95. FiO2 remains at 50 and maintaining 87 and 90% oxygen saturation. Social work also following and discussion with family about possible LTAC placement. 09/26/2020 Patient is seen in follow-up continues to be closely monitored in the ICU. Patient is off of Nimbex since yesterday and tolerating. Patient continues to be sedated and pulmonary hospice care sales consultant following closely and working on weaning FiO2 as tolerated. FiO2 has been decreased to 50 and PEEP continues at 17. Patient's calcium was low on this morning's labs at 4.9 and was given a dose of calcium gluconate. Patient labs this morning show sodium of 143 with a potassium of 3.5 and creatinine is 0.57, LDH is 1027, CRP is 8.7 and magnesium is 1.9. Continue with electrolyte replacement per protocol. His repeat potassium this afternoon as showing 6.0 may potentially be a hemolyzed sample and will redraw and monitor closely. Patient did receive that Braden supplementation from this morning's labs as it was 3.5. 09/27/2020 The patient remains on the mechanical ventilator. His vent settings include assist control mode, rate 32, tidal volume 420, FiO2 50%, and PEEP of 17. Arterial blood gases show pO2 61, pCO2 56, pH 7.38. The patient's currently on propofol at 35 mcg/kg/m, and fentanyl 1.5 mcg/kg per hour. The patient's getting saline at KVO, and tube feedings with Nepro at 25 mL an hour which is goal. Chest x-ray is stable. Shows bilateral diffuse infiltrates. White count 18.1, he will 9.7, hematocrit 30.2, platelet count 175,000. D-dimer is 1.27. Sodium 144, potassium 4.1, chlorides 118, CO2 27, BUN 42, creatinine 0.78. LDH is 1528, and C-reactive protein is 13.5. 09/28/2020 patient is seen in follow-up in the intensive care unit. HRemains intubated and on mechanical ventilator. He had undergone tracheostomy tube and PEG tube placements on 09/22/2020. He is sedated on propofol at 40 mcg/kg/m. Fentanyl at 1.5 mcg/mg per hour. 0.9 normal saline at KVO. He is being nourished with Nepro at 25 ML's per hour which is goal. Free water flushes at 30 MLS every 4 hours. He's had daily interruption of sedation. Once off sedation his blood pressure goes up to 200 systolic range. Today's chest x-ray reveals stable bilateral diffuse interstitial infiltrates. He has received 1 unit of convalescent plasma. Blood cultures reveal no growth. White count 15.5. Hemoglobin 8.8. Platelets 160. Sodium 142. Potassium 4.9. Creatinine 0.86. He has continued on Solu-Medrol, Lovenox, vitamin supplements. Prognosis remains guarded. 09/29/2020 Patient is seen in follow-up continues to be in the ICU intubated and sedated. Patient is off Nimbex with attempts at sedation holiday and having rebound blood pressure issues and placed on labetalol. Continues on IV Solu-Medrol along with vitamin and zinc supplements and Lovenox and will continue. FiO2 down to 50 and PEEP of 13. Pulmonary following closely. Patient continues with intermittent low-grade temps and elevated white count. D-dimer today is 1.57, sodium is 145, potassium is 4.6, current creatinine is 0.86. Inflammatory markers are elevated along with CRP and probe calcitonin. 09/30/2020 Patient is seen in follow-up currently remains in the ICU intubated and off sedation but no activity noted. Patient is not responding to commands and CT of the brain is ordered showing age-related atrophic and chronic small vessel ischemic change without any acute intracranial process along with the neck and chest CT continues to show groundglass opacities. Patient is off of labetalol and continues on that now. Propofol has been discontinued. Steroids transition to oral and given via PEG tube and continues on tube feedings which he is tolera ting. White blood count continues to be elevated at 21.7 and hemoglobin is 10.3, sodium is 147 and will increase free water flushes with tube feedings and monitor sodium closely. Potassium is 4.5. 10/01/2020 Patient continues to be closely monitored in the ICU and maintained off of sedation and remains unresponsive with very minimal brainstem reflexes otherwise not responding to painful stimulation or voice. Continue with free water flushes and monitor hypernatremia closely as sodium was elevated at 148 today. Continue with half normal saline at 75 ML per hour. D-dimer elevated at 3.48 today. White blood count also 22.7, hemoglobin is 9.6, creatinine elevated at 1.31, and sodium is 4.7. LDH slightly trending down at 2244 also CRP is up at 20.5. Chest x-ray today shows patchy. Hilar and basilar infiltrates persist without significant change. Will have neurology reevaluate the patient as he continues to be unresponsive and off sedation for 48 hours now. 10/02/2020 Patient is seen in follow-up continues to be closely monitored in the ICU and also continues off sedation and continues to be unresponsive. EEG was done which was abnormal showing no epileptiform activity and some background slowing of at least moderate degree suggestive of generalized cerebral dysfunction as can be seen in toxic metabolic encephalopathy or due to diffuse structural brain abnormalities. Patient's sodium is 144 today with a potassium of 4.6 and creatinine worsening at 2.08 and continues on half normal saline. White blood count elevated at 25.4 and continues with low-grade intermittent temps and showing MRSA in the sputum and was started on Zyvox. Patient also having some possible SVT and was given adenosine although appears to be atrial flutter and Cardizem was initiated although having low blood pressures which was discontinued. Patient is now on amiodarone drip along with heparin drip and cardiology following. 10/03/2020 Patient is seen this morning with hospice care sales consultant also at the bedside and continues to be closely monitored in the ICU. Continues off of all sedatives and continues to be unresponsive with no activity noted. Multiple medical consultations following including neurology, cardiology, pulmonary, and nephrology now consulted as patient has worsening creatinine and is currently 2.39 with a BUN of 105. Sodium improved at 138 and potassium is 4.5. Liver f unctions also worsening. Patient remains on a heparin drip and amiodarone has been transitioned oral amiodarone. Continues on oral prednisone and vitamin and zinc supplements and will continue. Patient's IV fluids are 0.45 at 75 ML per hour. Will await neuro consult. Patient has generalized edema bilateral upper and lower extremities and being started on IV Lasix Need to discuss with family about CODE STATUS as prognosis remains extremely guarded. Review of systems: Unable to obtain as patient continues to be intubated and sedated Active Medications Acetaminophen (Acetaminophen Tab 325 Mg Tab) 650 mg PO Q6HR PRN PRN Reason: Fever and/ or Pain Last Admin: 09/16/20 11:48 Dose: 650 mg Documented by: Albuterol Sulfate (Albuterol Hfa Inhaler) 2 puff INHALATION RT-QID [facility] Last Admin: 10/03/20 10:32 Dose: 2 puff Documented by: Amiodarone HCl (Amiodarone 200 Mg Tab) 200 mg PO BID [facility] Last Admin: 10/03/20 11:38 Dose: 200 mg Documented by: Artificial Tears (Artificial Tears-Hypromellose Drops 15 Ml Btl) 2 drops BOTH EYES QID [facility] Last Admin: 10/03/20 08:26 Dose: 2 drops Documented by: Ascorbic Acid (Ascorbic Acid 500 Mg Tab) 500 mg PO BID [facility] Last Admin: 10/03/20 08:26 Dose: 500 mg Documented by: Aspirin (Aspirin 81 Mg) 81 mg PO DAILY [facility] Last Admin: 10/03/20 08:26 Dose: 81 mg Documented by: Atorvastatin Calcium (Atorvastatin 80 Mg Tab) 80 mg PO DAILY [facility] Last Admin: 10/03/20 08:26 Dose: 80 mg Documented by: Chlorhexidine Gluconate (Chlorhexidine Gluconate 15 Ml Cup) 15 ml MUCOUS MEM BID [facility] Last Admin: 10/03/20 08:27 Dose: 15 ml Documented by: Cholecalciferol (Cholecalciferol 25 Mcg (1000 Iu) Tablet) 125 mcg PO DAILY [facility] Last Admin: 10/03/20 08:26 Dose: 125 mcg Documented by: Famotidine (Famotidine 20 Mg Tab) 20 mg PO DAILY [facility] Last Admin: 10/03/20 08:26 Dose: 20 mg Documented by: Furosemide (Furosemide 10 Mg/Ml 10 Ml Vial) 80 mg IV Q12HR [facility] Last Admin: 10/03/20 10:19 Dose: 80 mg Documented by: Heparin Sodium (Porcine) (Heparin Sodium 1,000 Un/Ml (10ml Vl)) 0 unit IV PER PROTOCOL PRN; Protocol PRN Reason: Low PTT Last Admin: 10/02/20 19:12 Dose: 4,000 unit Documented by: Sodium Chloride (Saline 0.45%) 1,000 mls @ 75 mls/hr IV .[id number] [facility] Last Admin: 10/02/20 23:36 Dose: 75 mls/hr Documented by: Linezolid 600 mg/ IV Solution 300 mls @ 150 mls/hr IVPB Q12HR [facility]; Protocol Last Admin: 10/03/20 10:18 Dose: 150 mls/hr Documented by: Heparin Sodium/Sodium Chloride (25,000 unit/ Sodium Chloride) 250 mls @ 9.987 mls/hr IV .Q24H [facility]; Protocol Last Admin: 10/03/20 08:35 Dose: 13.75 units/kg/hr, 12.774 mls/hr Documented by: Phenylephrine HCl 40 mg/ (Sodium Chloride) 254 mls @ 17.697 mls/hr IV .[id number] [facility]; Protocol Last Admin: 10/03/20 01:22 Dose: Not Given Documented by: Insulin Aspart (Insulin Aspart (Novolog) 100 Unit/Ml Vial) 0 unit SQ Q6HR [facility]; Protocol Last Admin: 10/03/20 11:42 Dose: 1 unit Documented by: Metoprolol Tartrate (Metoprolol Tartrate 25 Mg Tab) 25 mg PO BID [facility] Nitroglycerin (Nitroglycerin Sl Tabs 0.4 Mg Tab) 0.4 mg SUBLINGUAL Q5M PRN PRN Reason: Chest Pain Last Admin: 09/07/20 03:35 Dose: 0.4 mg Documented by: Prednisone (Prednisone 20 Mg Tab) 40 mg PO DAILY [facility] Last Admin: 10/03/20 08:26 Dose: 40 mg Documented by: Promethazine HCl (Promethazine Hcl 6.25 Mg/5 Ml Cup) 12.5 mg PO QID PRN PRN Reason: Cough Last Admin: 09/06/20 02:07 Dose: 12.5 mg Documented by: Zinc Sulfate (Zinc Sulfate 220 Mg Cap) 220 mg PO DAILY [facility] Last Admin: 10/03/20 08:26 Dose: 220 mg Documented by: Objective - Vital Signs Vital signs: Vital Signs Temp 97.9 F 10/03/20 04:00 Pulse 54 L 10/03/20 07:00 Resp 32 H 10/03/20 07:00 BP 119/64 10/03/20 07:00 Pulse Ox 93 L 10/03/20 07:00 Intake & Output 10/02/20 10/03/20 10/03/20 18:59 06:59 18:59 Intake Total 2896 2117.864 Output Total 340 360 Balance 2556 1757.864 Weight 101.8 kg Intake: IV 930 1014 .45 900 975 Pressure bag 30 39 Intake, IV Titration 1150 269.864 Amount Amiodarone 450 mg In 204.449 Dextrose 5% in Water 250 ml @ 0.5 MG/MIN 16.667 mls/hr IV .Q15H [facility] Rx#: [id number] Heparin Sod,Pork in 0.45% 65.415 NaCl 25,000 unit In 0.45 % NaCl 1 250ml.bag @ 10. 75 UNITS/KG/HR 9.987 mls/ hr IV .Q24H [facility] Rx#: [id number] Linezolid 600 mg In 150 Dextrose/Water 1 300ml. bag @ 150 mls/hr IVPB Q12HR [facility] Rx#:[id number] Sodium Chloride 0.9% 1, 1000 000 ml @ 999 mls/hr IV . Q1H1M [facility] Rx#:[id number] Tube Feeding 216 234 Other 600 600 Output: Urine 340 360 Stool 0 Other: Voiding Method Indwelling Catheter Indwelling Catheter ABP, PAP, CO, CI - Last Documented Arterial Blood Pressure 157/55 - Exam Gen: This is a 54-year-old male currently intubated and off sedation with no activity noted. FiO2 decreased to 50, PEEP of 13 HEENT: Head is atraumatic, normocephalic. Sluggish pupils, Sclerae is anicteric. Oral mucosa is dry and crusted NECK: Supple. No JVD. No lymphadenopathy. No thyromegaly. Tracheostomy noted LUNGS: diminished breath sounds bilaterally with some scattered rhonchi and crackles noted. Tachypneic. No intercostal retractions. HEART: S1, S2 are muffled, irregular ABDOMEN: Soft. Obese. Bowel sounds are present. No masses. No tenderness. PEG tube noted EXTREMITIES: No pedal edema. No calf tenderness. NEUROLOGICAL: Unable to completely assess completely as patient is intubated and off sedation all remains unresponsive - Labs CBC & Chem 7: 10/03/20 04:47 10/03/20 04:47 Labs: Abnormal Lab Results - Last 24 Hours (Table) 10/02/20 10/02/20 10/02/20 Range/Units 05:00 08:15 08:15 WBC (3.8-10.6) k/uL RBC (4.30-5.90) m/uL Hgb (13.0-17.5) gm/dL Hct (39.0-53.0) % RDW (11.5-15.5) % Plt Count (150-450) k/uL Neutrophils # (1.3-7.7) k/uL Lymphocytes # (1.0-4.8) k/uL APTT (22.0-30.0) sec ABG pH (7.35-7.45) ABG pCO2 (35-45) mmHg ABG pO2 (83-108) mmHg ABG Total CO2 (19-24) mmol/L BUN (9-20) mg/dL Creatinine (0.66-1.25) mg/dL Glucose (74-99) mg/dL POC Glucose (mg/dL) (75-99) mg/dL Hemoglobin A1c 6.6 H (4.0-6.0) % Calcium (8.4-10.2) mg/dL AST 345 H (17-59) U/L ALT 289 H (4-49) U/L Alkaline Phosphatase (38-126) U/L Total Protein (6.3-8.2) g/dL Albumin (3.5-5.0) g/dL Procalcitonin 0.61 H (0.02-0.09) ng/mL 10/02/20 10/02/20 10/02/20 Range/Units 11:24 18:25 18:29 WBC (3.8-10.6) k/uL RBC (4.30-5.90) m/uL Hgb (13.0-17.5) gm/dL Hct (39.0-53.0) % RDW (11.5-15.5) % Plt Count (150-450) k/uL Neutrophils # (1.3-7.7) k/uL Lymphocytes # (1.0-4.8) k/uL APTT 32.0 H (22.0-30.0) sec ABG pH (7.35-7.45) ABG pCO2 (35-45) mmHg ABG pO2 (83-108) mmHg ABG Total CO2 (19-24) mmol/L BUN (9-20) mg/dL Creatinine (0.66-1.25) mg/dL Glucose (74-99) mg/dL POC Glucose (mg/dL) 150 H 165 H (75-99) mg/dL Hemoglobin A1c (4.0-6.0) % Calcium (8.4-10.2) mg/dL AST (17-59) U/L ALT (4-49) U/L Alkaline Phosphatase (38-126) U/L Total Protein (6.3-8.2) g/dL Albumin (3.5-5.0) g/dL Procalcitonin (0.02-0.09) ng/mL 10/02/20 10/03/20 10/03/20 Range/Units 23:15 01:00 04:47 WBC 23.1 H (3.8-10.6) k/uL RBC 2.69 L (4.30-5.90) m/uL Hgb 8.5 L D (13.0-17.5) gm/dL Hct 25.5 L (39.0-53.0) % RDW 16.4 H (11.5-15.5) % Plt Count 104 L (150-450) k/uL Neutrophils # 22.0 H (1.3-7.7) k/uL Lymphocytes # 0.5 L (1.0-4.8) k/uL APTT 55.4 H (22.0-30.0) sec ABG pH (7.35-7.45) ABG pCO2 (35-45) mmHg ABG pO2 (83-108) mmHg ABG Total CO2 (19-24) mmol/L BUN (9-20) mg/dL Creatinine (0.66-1.25) mg/dL Glucose (74-99) mg/dL POC Glucose (mg/dL) 171 H (75-99) mg/dL Hemoglobin A1c (4.0-6.0) % Calcium (8.4-10.2) mg/dL AST (17-59) U/L ALT (4-49) U/L Alkaline Phosphatase (38-126) U/L Total Protein (6.3-8.2) g/dL Albumin (3.5-5.0) g/dL Procalcitonin (0.02-0.09) ng/mL 10/03/20 10/03/20 10/03/20 Range/Units 04:47 04:47 04:55 WBC (3.8-10.6) k/uL RBC (4.30-5.90) m/uL Hgb (13.0-17.5) gm/dL Hct (39.0-53.0) % RDW (11.5-15.5) % Plt Count (150-450) k/uL Neutrophils # (1.3-7.7) k/uL Lymphocytes # (1.0-4.8) k/uL APTT 53.6 H (22.0-30.0) sec ABG pH 7.31 L (7.35-7.45) ABG pCO2 50 H (35-45) mmHg ABG pO2 77 L (83-108) mmHg ABG Total CO2 27 H (19-24) mmol/L BUN 105 H* (9-20) mg/dL Creatinine 2.39 H (0.66-1.25) mg/dL Glucose 110 H (74-99) mg/dL POC Glucose (mg/dL) (75-99) mg/dL Hemoglobin A1c (4.0-6.0) % Calcium 7.8 L (8.4-10.2) mg/dL AST 348 H (17-59) U/L ALT 324 H (4-49) U/L Alkaline Phosphatase 128 H (38-126) U/L Total Protein 4.9 L (6.3-8.2) g/dL Albumin 2.4 L (3.5-5.0) g/dL Procalcitonin (0.02-0.09) ng/mL Assessment and Plan Assessment: -Acute hypoxic respiratory failure secondary to Covid 19 pneumonia, extensive interstitial pneumonia on mechanical ventilation -Status post PEG tube and tracheostomy placement -Acute kidney injury and nephrology consulted and pending -Atrial flutter -Sputum growing MRSA -Continued fevers -Leukocytosis -Acute lactic acidosis -Hypocalcemia -Atrial fibrillation with fast ventricular rate -Change in mental status, acute metabolic encephalopathy -Elevated random blood glucose -Hypernatremia -Hypertension -Elevated troponin possibly secondary to type II acute myocardial infarction secondary to hypoxemia and COVID-19 -History of gastroesophageal reflux disease -GI prophylaxis with Pepcid -DVT prophylaxis with Lovenox -Full code Recommendations and discussion: Recommend to continue with current medications and continue to monitor in the ICU as patient continues to be on mechanical vent intubated. Patient is off of sedation with no activity noted and underwent CT showing no acute process. Neurology following recommending repeat CT and EEG was abnormal. Cardiology following for atrial flutter and placed on amiodarone drip along with heparin drip. Patient continues on IV heparin although was transitioned to oral amiodarone. Sodium appears improved although kidney functions BUN and creatinine continue to rise and patient is having generalized edema of bilateral upper and lower extremities and nephrology consulted patient being started on IV Lasix. Patient currently tracheostomy dependent. FiO2 is at 50 and a PEEP of 13. Weaning as tolerated per hospice care sales consultant. Continue with Accu-Cheks every 6 and sliding scale as needed. [employer] following closely. Pulmonary following closely. Due to multiple complex medical issues, prognosis remains extremely poor and guarded. Need to discuss with the family about CODE STATUS.
--- NOTE | 2020-10-03 18:14 | CT ---
EXAMINATION TYPE: CT brain wo con DATE OF EXAM: 10/03/2020 COMPARISON: 09/30/2020 HISTORY: Altered mental status. CT DLP: 1173.4 mGycm Automated exposure control for dose reduction was used. Ventricles have normal size. There is no mass effect nor midline shift. There is no sign of intracran ial hemorrhage. There is some white matter hypodensity in the centrum semiovale bilaterally and more on the left side. The calvarium is intact. Skull base is intact. There is extensive opacification of the mastoid sinuses. IMPRESSION: Hypodensity in the parietal lobes bilaterally consistent with chronic microvascular ischemia that is unchanged compared to recent exam. Mastoiditis.
[2020-10-03 18:36] LABS: Glucose,Whole Blood 155 mg/dL (75-99)
--- NOTE | 2020-10-03 19:16 | P.PN ---
Subjective Progress Note Date: 10/03/20 Patient was seen for a follow-up. Patient appears to be slightly more encephalopathic. Patient's head is deviated to the right. Gaze is midline. Patient's mouth is open. Tracheostomy is in place. Patient is off sedation since yesterday, not following any commands. Patient is comatose. Patient has tracheostomy, and patient is slightly bubbling and showering small droplets of blood from the right side of the mouth. Possible some ETT leak. Objective - Vital Signs Vital signs: Vital Signs Temp 99.1 F 10/03/20 08:00 Pulse 93 10/03/20 14:00 Resp 32 H 10/03/20 14:00 BP 156/54 10/03/20 14:00 Pulse Ox 90 L 10/03/20 14:00 Intake & Output 10/02/20 10/03/20 10/03/20 18:59 06:59 18:59 Intake Total 2896 2117.864 1359.093 Output Total 340 360 210 Balance 2556 2945.956 6863.093 Weight 101.8 kg 101.8 kg Intake: IV 930 1014 546 .45 900 975 525 Pressure bag 30 39 21 Intake, IV Titration 1150 269.864 349.093 Amount Amiodarone 450 mg In 204.449 Dextrose 5% in Water 250 ml @ 0.5 MG/MIN 16.667 mls/hr IV .Q15H [facility] Rx#: [id number] Dextrose 5% in Water 100 100 ml @ 618 mls/hr IV .Q10M ONE with Amiodarone 150 mg Rx#:[id number] Heparin Sod,Pork in 0.45% 65.415 249.093 NaCl 25,000 unit In 0.45 % NaCl 1 250ml.bag @ 10. 75 UNITS/KG/HR 9.987 mls/ hr IV .Q24H [facility] Rx#: [id number] Linezolid 600 mg In 150 Dextrose/Water 1 300ml. bag @ 150 mls/hr IVPB Q12HR [facility] Rx#:[id number] Sodium Chloride 0.9% 1, 1000 000 ml @ 999 mls/hr IV . Q1H1M ONE Rx#:[id number] Tube Feeding 216 234 174 Other 600 600 290 Output: Urine 340 360 210 Stool 0 Other: Voiding Method Indwelling Catheter Indwelling Catheter Indwelling Catheter ABP, PAP, CO, CI - Last Documented Arterial Blood Pressure 107/57 - Exam Patient is off sedation. Patient does not respond to calling his name. Patient's pupils are round and reacting. Oculocephalics are absent. Corneals are mildly present. Patient is respirator set at 32 and he sometimes breathing one to 2 above. Patient's heparin has been shut off because of the oral bleeding. Patient does not respond to noxious stimuli. Reflexes are diminished and plantars are flat. Patient has peripheral edema. No obvious seizure activity noted. - Labs CBC & Chem 7: 10/03/20 04:47 10/03/20 04:47 Labs: Abnormal Lab Results - Last 24 Hours (Table) 10/02/20 10/02/20 10/02/20 Range/Units 05:00 18:25 18:29 WBC (3.8-10.6) k/uL RBC (4.30-5.90) m/uL Hgb (13.0-17.5) gm/dL Hct (39.0-53.0) % RDW (11.5-15.5) % Plt Count (150-450) k/uL Neutrophils # (1.3-7.7) k/uL Lymphocytes # (1.0-4.8) k/uL APTT 32.0 H (22.0-30.0) sec ABG pH (7.35-7.45) ABG pCO2 (35-45) mmHg ABG pO2 (83-108) mmHg ABG Total CO2 (19-24) mmol/L BUN (9-20) mg/dL Creatinine (0.66-1.25) mg/dL Glucose (74-99) mg/dL POC Glucose (mg/dL) 165 H (75-99) mg/dL Hemoglobin A1c 6.6 H (4.0-6.0) % Calcium (8.4-10.2) mg/dL AST (17-59) U/L ALT (4-49) U/L Alkaline Phosphatase (38-126) U/L Total Protein (6.3-8.2) g/dL Albumin (3.5-5.0) g/dL 10/02/20 10/03/20 10/03/20 Range/Units 23:15 01:00 04:47 WBC 23.1 H (3.8-10.6) k/uL RBC 2.69 L (4.30-5.90) m/uL Hgb 8.5 L D (13.0-17.5) gm/dL Hct 25.5 L (39.0-53.0) % RDW 16.4 H (11.5-15.5) % Plt Count 104 L (150-450) k/uL Neutrophils # 22.0 H (1.3-7.7) k/uL Lymphocytes # 0.5 L (1.0-4.8) k/uL APTT 55.4 H (22.0-30.0) sec ABG pH (7.35-7.45) ABG pCO2 (35-45) mmHg ABG pO2 (83-108) mmHg ABG Total CO2 (19-24) mmol/L BUN (9-20) mg/dL Creatinine (0.66-1.25) mg/dL Glucose (74-99) mg/dL POC Glucose (mg/dL) 171 H (75-99) mg/dL Hemoglobin A1c (4.0-6.0) % Calcium (8.4-10.2) mg/dL AST (17-59) U/L ALT (4-49) U/L Alkaline Phosphatase (38-126) U/L Total Protein (6.3-8.2) g/dL Albumin (3.5-5.0) g/dL 10/03/20 10/03/20 10/03/20 Range/Units 04:47 04:47 04:55 WBC (3.8-10.6) k/uL RBC (4.30-5.90) m/uL Hgb (13.0-17.5) gm/dL Hct (39.0-53.0) % RDW (11.5-15.5) % Plt Count (150-450) k/uL Neutrophils # (1.3-7.7) k/uL Lymphocytes # (1.0-4.8) k/uL APTT 53.6 H (22.0-30.0) sec ABG pH 7.31 L (7.35-7.45) ABG pCO2 50 H (35-45) mmHg ABG pO2 77 L (83-108) mmHg ABG Total CO2 27 H (19-24) mmol/L BUN 105 H* (9-20) mg/dL Creatinine 2.39 H (0.66-1.25) mg/dL Glucose 110 H (74-99) mg/dL POC Glucose (mg/dL) (75-99) mg/dL Hemoglobin A1c (4.0-6.0) % Calcium 7.8 L (8.4-10.2) mg/dL AST 348 H (17-59) U/L ALT 324 H (4-49) U/L Alkaline Phosphatase 128 H (38-126) U/L Total Protein 4.9 L (6.3-8.2) g/dL Albumin 2.4 L (3.5-5.0) g/dL 10/03/20 Range/Units 11:36 WBC (3.8-10.6) k/uL RBC (4.30-5.90) m/uL Hgb (13.0-17.5) gm/dL Hct (39.0-53.0) % RDW (11.5-15.5) % Plt Count (150-450) k/uL Neutrophils # (1.3-7.7) k/uL Lymphocytes # (1.0-4.8) k/uL APTT (22.0-30.0) sec ABG pH (7.35-7.45) ABG pCO2 (35-45) mmHg ABG pO2 (83-108) mmHg ABG Total CO2 (19-24) mmol/L BUN (9-20) mg/dL Creatinine (0.66-1.25) mg/dL Glucose (74-99) mg/dL POC Glucose (mg/dL) 131 H (75-99) mg/dL Hemoglobin A1c (4.0-6.0) % Calcium (8.4-10.2) mg/dL AST (17-59) U/L ALT (4-49) U/L Alkaline Phosphatase (38-126) U/L Total Protein (6.3-8.2) g/dL Albumin (3.5-5.0) g/dL Microbiology - Last 24 Hours (Table) 10/02/20 12:20 Blood Culture - Preliminary Blood No Growth after 24 hours 10/01/20 04:45 Gram Stain - Final Abdomen Wound Culture - Final Methicillin resist S. aureus Assessment and Plan Assessment: * Altered mental status with comatose state due to severe toxic metabolic encephalopathy. Reasons multifactorial as below. * Abnormal CT head, showing evidence of subcortical white matter hypodensity, asymmetric to the left posterior parietal region. No definitive acute stroke. * Covid-19 pneumonia, with hypoxemia, worsening infiltrates * MRSA pneumonia * Acute renal insufficiency, getting worse. * Elevated LFTs * Non-STEMI * New onset atrial flutter/fibrillation, on heparin. * Status post tracheostomy and PEG placement Plan: * Repeat computed tomography scan of the head today again revealed evidence of subcortical white matter hypodensity, asymmetric to the left, consistent with small vessel disease. No acute or evolving stroke. * EEG revealed background slowing of at least moderate degree, suggestive of toxic metabolic encephalopathy or from diffuse structural brain abnormality. No epileptiform activity was seen. * Patient has been off sedation 09/29/2020, with no significant clinical improvement. * Carotid Doppler revealed suboptimal study without significant plaque or stenosis in the carotid bulb level bilaterally. Vertebral arteries could not be assessed because of the trachea equipment. * Patient has new onset atrial fibrillation. Patient on heparin, but has developed oral bleed. Heparin management as per cardiology/critical care. * Hemoglobin A1c 6.6. * 2-D echo from 09/03/2020 shows moderate concentric LVH, EF is 55-60%. Trace MR. * Patient on aspirin 81 mg, Lipitor 80 mg. Patient also on heparin IV for atrial flutter. * Prognosis appears very guarded based upon neurological and other comorbid conditions. * Dr. He will be covering neurology service from the morning.
[2020-10-03 19:19] LABS: Anisocytosis Slight; HGB 8.3 gm/dL (13.0-17.5); Hypochromasia Slight; MCH 30.9 pg (25.0-35.0); MCV 96.6 fL (80.0-100.0); Macrocytosis Slight; Mean Platelet Volume 10.2; Platelet Count 136 k/uL (150-450); RBC 2.69 m/uL (4.30-5.90); RDW 16.7 % (11.5-15.5); WBC 30.8 k/uL (3.8-10.6)
[2020-10-03] MEDS: METOPROLOL TARTRATE 25 MG TAB PO SCH (19:47)
[2020-10-03] MEDS ORDERED: AMIODARONE 200 MG TAB PO SCH (21:00)
[2020-10-04 00:08] LABS: Glucose,Whole Blood 141 mg/dL (75-99)
[2020-10-04] MEDS: INSULIN ASPART (NovoLOG) 100 UNIT/ML VIAL SQ SCH ×4 (00:13→18:24)
[2020-10-04] MEDS: SODIUM CHLORIDE 0.45% 1,000 ML IV SCH (00:14)
[2020-10-04] MEDS: PHENYLEPHRINE 40 MG in SODIUM CHLORIDE 0.9% 250 ML IV SCH ×2 (00:53→09:39)
[2020-10-04 04:33] LABS: Anisocytosis Slight; Basophils % (A) 0 %; Eosinophils % (A) 0 %; HCT 23.9 % (39.0-53.0); HGB 7.9 gm/dL (13.0-17.5); Hypochromasia Slight; Lymphocytes # (A) 0.6 k/uL (1.0-4.8); Lymphocytes % (A) 2 %; MCH 31.5 pg (25.0-35.0); MCHC 33.1 g/dL (31.0-37.0); MCV 95.3 fL (80.0-100.0); Macrocytosis Slight; Mean Platelet Volume 10.2; Monocytes # (A) 0.8 k/uL (0-1.0); Monocytes % (A) 3 %; Neutrophils # (A) 29.1 k/uL (1.3-7.7); Neutrophils % (A) 95 %; Platelet Count 156 k/uL (150-450); RDW 16.7 % (11.5-15.5); WBC 30.6 k/uL (3.8-10.6)
[2020-10-04 04:50] LABS: Calcium 7.5 mg/dL (8.4-10.2); Potassium 4.8 mmol/L (3.5-5.1); Total Bilirubin 0.4 mg/dL (0.2-1.3); Total Protein 4.2 g/dL (6.3-8.2)
[2020-10-04 05:19] LABS: ABG Base Excess -5.2 mmol/L; ABG HCO3 22 mmol/L (21-25); ABG Oxygen Saturation 96.4 % (94-97); ABG PCO2 53 mmHg (35-45); ABG PH 7.23 (7.35-7.45); ABG PO2 89 mmHg (83-108); ABG TCO2 24 mmol/L (19-24)
[2020-10-04 05:36] LABS: C Reactive Protein 14.5 mg/dL (<1.0)
[2020-10-04 05:42] LABS: Allen Test Performed? no
[2020-10-04 06:13] LABS: Glucose,Whole Blood 103 mg/dL (75-99)
[2020-10-04] MEDS: ALBUTEROL HFA INHALER INHALATION SCH ×4 (07:23→20:33)
--- NOTE | 2020-10-04 07:58 | P.PN ---
Subjective Progress Note Date: 10/04/20 09/29/2020 the patient is being seen in follow-up. The patient is an acute hypoxic respiratory failure secondary to COVID-19 limited pneumonia. The patient is post intubation mechanical ventilation as of 09/12/2020. The patient undergone tracheostomy and PEG tube insertion 09/22/2020. During the course of the treatment, the patient received a combination of steroids, convalescent plasma and Tocilizumab. The patient continues to be on IV Solu-Medrol 40 mg IV every 8 hours. The patient is also on Lovenox 40 mg subcu to 24 hours. The LDH level from 09/27/2000 was 1528 and the patient's CRP level was 13.5. Renal function stable. The patient remains in intensive care unit and the patient is ventilator dependent. The patient remains on mechanical ventilator on assist control mode rate of 32 with a tidal volume of 420, fio2 50% with a PEEP of 13. The peak airway pressure is around 37. Static pressures around 33. He does have a foul-smelling odor from his mouth. He has a Bivona tracheostomy tube #7. Patient is sedated with propofol running at 40 mcg/kg per minute and fentanyl at 1.5 mg/kg/h. IV fluids are running at KVO and the patient is receiving enteral feeding for nutritional support utilizing Nepro 25 mL every 24 hours if the patient is also on Cleviprex for blood pressure control and he is off the medication. Chest x-ray showing but the pulmonary infiltrates involving the mid and lower lobes bilaterally quite dense and lower lobes. Patient's tracheostomy tube is in a good location. Hemodynamically stable on no pressors. Attempts to wean him off the sedation has failed and the patient became tachycardic and he has required Cleviprex on and off. Nevertheless, Cleviprex is made in become tachycardic. On 09/30/2020 by the patient is completely of sedation for the past 24 hours. Note that prior attempts to get this patient off sedation at failure the patient was developing an acute hypertensive reaction and ultimately I was able to get him off the propofol and fentanyl yesterday and he does have labetalol as a backup which was never used as the patient remained normotensive during the process. His been off sedation for at least 16 hours. Neurologically, significantly impaired, completely unresponsive, barely any cough or gag and limited particularly response. Does not respond to any verbal or painful stimulation. He remains on a mechanical ventilator. This morning he is an assist-control mode at the rate of 32 with a tidal volume of 420 and FiO2 of 50% with a PEEP of 13. The blood gases from today is still pending. Meanwhile, the chest x-ray shows essentially stable findings with a Bivona tracheostomy tube in place and there is still persistent but the pulmonary infiltrates, essentially unchanged compared to yesterday. Another issue is the halitosis as the patient has a bad odor coming from his mouth. There is some purulent secretions around the tracheostomy tube that was noted at the same time there is some bleeding this coming from his mouth and the patient has required frequent suctioning. I noted the canister and that is probably around 200 mL of bloody material collected since yesterday. His white cell count is at 21. The patient is on IV cefepime. Focused on is obtained from yesterday was 0.19. Otherwise, rest of the electrodes are showing a component of hyperchloremic hypernatremia. Sodium is at 147. Creatinine is 0.9. LDH from yesterday was 2371. The patient currently is IV Solu-Medrol 40 mg every 8 hours. The patient is also on Lovenox 40 mg subcu to 24 hours. As mentioned, his been off sedation and off paralytics. Enteral feeding for nutritional support is through Nepro via PEG tube at the rate of 18 mL an hour On 10/01/2020, the patient remains unresponsive despite being off sedation for 48 hours. He is off paralytics. He is off propofol. He is off fentanyl. Penicillin significant or reasonable neurological recovery yet. The patient has brainstem reflexes. Nevertheless, the patient is not responding to any painful stimulation. Does not respond to any verbal commands. Does not open up his eyes spontaneously. Does not move his extremities spontaneously. The CAT scan of the head that was done on 09/30/2020 showed age-related atrophy with chronic small vessel ischemic change without any acute process. He is on mechanical ventilator. He remains on assist control mode at the rate of 32 with a tidal volume of 420 and the respiratory rate of 32 with an FiO2 of 50% with a PEEP of 13. Blood gases from today showed a pH of 7.36 with a pCO2 of 56 with a pO2 of 62 and this is essentially the same as yesterday without any major interval change. Chest x-ray from today is showing diffuse bilateral pulmonary infiltrates, unchanged and the patient has a tracheostomy tube in place which is in the 1 tracheostomy tube #7. No evidence of any pneumothorax. He also CAT s can of the neck yesterday that showed tracheostomy tube in good location. The CAT scan of the neck was essentially on remarkable. The lungs showed patchy groundglass airspace disease bilaterally, he has slightly improved compared to the prior study. Small effusions were also noted. Mediastinum was essentially within normal limits. The patient's LDH level is at 2244 and a CRP level is at 20.5. Creatinine is at 1.3 which is a rise compared to yesterday and the White counts was a 22.7 with a hemoglobin of 9.6. He is currently on prednisone 40 mg by mouth daily. He is on Lovenox 40 mg subcu every 24 hours. His net fluid balance is -560 mL over the past 24 hours. Enteral feeding is in the form of Nepro at the rate of 80 mL an hour. He is also having IV fluids in the form of normal saline running at 75 mL an hour. Sodium level is 48 with a chloride level of 112. D-dimer level is at 3.48. 10/02/2020, the patient remains completely unresponsive. His been off sedatives and paralytics for the past 72 hours. No neurologic recovery. No responsiveness. He has a weak cough. Given her reflexes aren't impaired. Corneal reflexes are weak. Does not withdraw to painful stimulation. Does not have any spottiness eye-opening. Neurologic exam is essentially unchanged compared to yesterday. As of a neuro workup, the patient has already undergone a CAT scan of the brain that showed no acute abnormalities. Neurologic consultation be obtained based on his underlying unresponsiveness. EEG will be also obtained. He remains on a mechanical ventilator. This morning, he is on assist control mode at the rate of 32 with a tidal volume of 420 and a PEEP of 13 with an FiO2 of 50%. Chest x-ray showing some lateral lower lobe pulmonary infiltrates, and there is some worsening and infiltration on the right. The patient has a blood. This showed a pH of 7.35 with episodes of 51 and pO2 of 67. Protested troponin was mildly elevated at 0.19. The sputum was showing MRSA and there is a concern that the patient is developing a superinfection on a ventilator associated pneumonia knowing that there is a new infiltration in the right lower lobe and the patient has developed some new onset leukocytosis and a white cell count is currently up to 25.4. In terms of COVID-19 related pneumonia, the patient's d-dimer is at 3.6, LDH level is 2456 with a CRP of 20.4. The patient is currently on Lovenox 40 mg subcu on a daily basis and the patient is also on prednisone 40 mg oral. Since yesterday, the patient also has developed an acute kidney injury. Creatinine is up to 2. Urine output is not or that of 30 mL an hour and the net fluid balance over the past 24 hours has been +2 L. IV fluids running at a rate of 75 mL of half-normal saline. The sodium level is down to 144. BUN is at 96 with a creatinine of 2.08. Liver function tests have been essentially within normal limits. The patient is having diarrhea output has been ordered of 400 mL over the past 12 hours. He is currently receiving enteral feeding in the form of Nepro at the rate of 18 mL an hour. 10/03/2020, the patient has been off sedation and paralytics since 10/12/2020 and this makes it approximately 96 hours. Neurologically, still unresponsive, he is at the point it is opening up his eyes , and the patient is not following commands, is not moving his extremities, does not grimace to painful s timulation, brainstem reflexes are still weak although he does have a weak cough and positive pupillary reflex with sluggish corneals. Neurologist on the case. EEG was done and it was consistent with metabolic encephalopathy. Specifically, the EEG showed background slowing and generalized cerebral dysfunction. No seizure activity was noted. A contrast enhanced CAT scan of the brain to be done today. Carotid Dopplers were within normal and negative for any hemodynamically significant carotid artery stenosis. Meanwhile, the patient is on a mechanical ventilator. Vent settings are essentially the same with a rate of 32, tidal volume of 420 and a PEEP of 13 with an FiO2 of 50%. Blood pressure with a pH of 7.31 with a pCO2 of 50 and pO2 of 77. Chest x-ray findings are essentially unchanged and the patient has stable bilateral pulmonary infiltrates and a tracheostomy tube is in a good location. No significant orotracheal secretions. . Cultured MRSA in his sputum. Due to concern of superinfection and the focus is on level of 0.6, I started the patient on Zyvox yesterday 600 mg IV every 12 hours. He does have halitosis and the workup has been essentially negative including CAT scan of his neck. Note that the most recent CAT scan of the chest was showing some limited improvement in the right infiltrates related to COVID-19 related pneumonia. The patient's inflammatory markers are showing an elevated LDH from yesterday of 2456 and a CRP level of 20.4. Unfortunately, he has developed an acute kidney injury. The findings on the case. Creatinine is up to 2.3 and the BUN of 106. The patient is currently receiving IV fluids and the patient is on half-normal saline at the rate of 75 mL's an hour. The fluid balance over the past 24 hours has been +1.1 L. No major electrolyte disturbance. There is a drop in hemoglobin without evidence of any GI bleed. Hemoglobin today is at 8.5 with a white cell count of 23 and was supposed much comparable to yesterday's counts. He is platelet count is also low at 104. He had he remains on prednisone 40 mg by mouth daily. He remains on anticoagulation as the patient had a cardiac is this yesterday when he went into atrial flutter with rapid ventricular response and during that time the patient became hemodynamically unstable and he dropped his systolic blood pressure down to the mid 60s. At that point, he received an immediate cardioversion with subsequent improvement in his hemodynamics. Based on that event, the patient was kept on IV heparin per cardiac recommendation. He did have a few more episodes since then it was self-limiting and nonsustained. He was started on amiodarone drip and conjunction with IV heparin and amiodarone currently running at 0.5 mg per minute and the patient is also on metoprolol 25 mg by mouth twice a day. 10/04/2020, the patient clinically unchanged unresponsive and comatose. The patient has has not shown any signs of neurologic recovery over the past week. His been off sedation. As stated yesterday, he opens up his eyes, does not follow any commands. Brain stem reflexes are present. No cortical functions. EEG showing diffuse cerebral dysfunction. A repeat CAT scan of the brain was done yesterday and the patient was found to have hypodensity in the parietal lobes bilaterally consistent with chronic microvascular ischemia and that has been unchanged compared to the earlier evaluation. Ventricles are normal in size. There is no mass effect. No acute stroke. Neurology has still seeing this patient on a regular basis. The workup was essentially negative. We are still within the context of metabolic encephalopathy. As stated, there is no evidence of any acute stroke. Hypoxic encephalopathy also is within the differential diagnosis. Meanwhile, the patient is still on a mechanical ventilator. This morning, he is essentially on the same vent setting within assist-control of 32, tidal volume of 420, PEEP of 13 and FiO2 is currently at 70%. Blood gas from this morning shows a pH of 7.23 with a pCO2 of 53 and pO2 of 89. The chest x-ray from this morning shows adequate positioning of the tracheostomy tube. No significant interval change in terms of his bilateral pulmonary infiltrates and these are consistent with COVID-19 related pneumonia. No significant orotracheal secretions. He does have some old dried up blood in his mucosal membranes of the mouth and the tongue. No active bleeding. No fever. He has developed an acute kidney injury and he has progressive worsening his kidney function and he has also developed an acute leukocytosis. Sputum was positive for MRSA and the patient was started on Zyvox. Upon careful review of the follow-up chest x-rays, there is probably worsening in the bilateral pulmonary infiltrates and worsening infiltration on the left lower lobe and the right lower lobe. In terms of his white cell count, it is up to 30.6. His renal function is also impaired and the patient has developed an acute kidney injury in the creatinine is on the rise and is currently up to 2.68. Liver function tests are also abnormal and the patient has a component of transaminitis. LDH level is on the rise and LDH level is up to 2829 and a CRP level is 14.5. Urine output is no order of 10-20 mL an hour. Overall fluid balance has been +4.3 L positive over the past 24 hours. He is currently on a maintenance IV fluids of 0.45 0.45 at the rate of 75 mL an hour. He is also receiving enteral feeding for nutritional support. He is on Nepro at the rate of 30 mL an hour. In terms of his cardiac rhythm, he remains in sinus. He was taken off the amiodarone drip. He was switched to oral amiodarone 200 mg by mouth twice a day and he was also maintained on metoprolol 25 mg by mouth twice a day. , Overnight, the patient had another run of atrial flutter/fib at the rate of 140-160. At that point, he was restarted back then amiodarone drip and his back into normal sinus rhythm for now. IV heparin has been discontinued. Objective - Vital Signs Vital signs: Vital Signs Temp 98.8 F 10/04/20 04:00 Pulse 55 L 10/04/20 07:00 Resp 16 10/04/20 07:00 BP 115/68 10/04/20 00:00 Pulse Ox 98 10/04/20 07:00 Intake & Output 10/03/20 10/04/20 10/04/20 18:59 06:59 18:59 Intake Total 2967.969 2693.828 Output Total 925 270 Balance 356.790 1109.828 Weight 101.8 kg 106.3 kg Intake: IV 858 1014 .45 825 975 Pressure bag 33 39 Intake, IV Titration 349.093 415.828 Amount Dextrose 5% in Water 100 100 ml @ 618 mls/hr IV .Q10M ONE with Amiodarone 150 mg Rx#:[id number] Heparin Sod,Pork in 0.45% 249.093 NaCl 25,000 unit In 0.45 % NaCl 1 250ml.bag @ 10. 75 UNITS/KG/HR 9.987 mls/ hr IV .Q24H [facility] Rx#: [id number] Phenylephrine 40 mg In 415.828 Sodium Chloride 0.9% 250 ml @ 0.5 MCG/KG/MIN 17. 697 mls/hr IV .[id number] [facility] Rx#:[id number] Tube Feeding 294 390 Other 320 90 Output: Urine 325 270 Stool 600 Other: Voiding Method Indwelling Catheter Indwelling Catheter ABP, PAP, CO, CI - Last Documented Arterial Blood Pressure 136/49 - Exam GENERAL EXAM: Intubated, sedated 54-year-old gentleman, on mechanical ventilator The patient has a Bivona tracheostomy tube in place and is off sedation. Completely unresponsive and seems to be in a comatose state. HEAD: Normocephalic. EYES: Sluggish reaction of pupils, equal size. NOSE: Clear with pink turbinates. THROAT: No erythema or exudates. Bivona tracheostomy tube in place, mucosal membranes are dry, tongue is dry, there is evidence of mucosal bleed with dried blood covering the mouth of the lips and the tongue. No active bleeding at this point in time. NECK: No masses, no JVD. CHEST: No chest wall deformity. LUNGS: Equal air entry with crackles in the bilateral posterior bases. CVS: S1 and S2 normal with no audible murmur, regular rhythm. ABDOMEN: No hepatosplenomegaly, normal bowel sounds, no guarding or rigidity. The PEG tube is in a good location. SPINE: No scoliosis or deformity SKIN: No rashes CENTRAL NERVOUS SYSTEM: Patient is completely unresponsive, pupils around to the 3 mm in size, sluggishly reactive to light, no corneal reflexes, very sluggish pupillary reflex, motor functions and all 4 extremities, does not withdraw to any painful stimulation. Neurologic exam remains unchanged. Brain Stem reflexes are present. Completely unresponsive. No significant change in his neuro status since yesterday. EXTREMITIES: There is no peripheral edema. No clubbing, no cyanosis. Peripheral pulses are intact. - Labs CBC & Chem 7: 10/04/20 04:00 10/04/20 04:00 Labs: Abnormal Lab Results - Last 24 Hours (Table) 10/03/20 10/03/20 10/03/20 Range/Units 11:36 18:34 18:40 WBC 30.8 H (3.8-10.6) k/uL RBC 2.69 L (4.30-5.90) m/uL Hgb 8.3 L (13.0-17.5) gm/dL Hct 26.0 L (39.0-53.0) % RDW 16.7 H (11.5-15.5) % Plt Count 136 L (150-450) k/uL Neutrophils # (1.3-7.7) k/uL Lymphocytes # (1.0-4.8) k/uL D-Dimer (<0.60) mg/L FEU ABG pH (7.35-7.45) ABG pCO2 (35-45) mmHg Sodium (137-145) mmol/L BUN (9-20) mg/dL Creatinine (0.66-1.25) mg/dL POC Glucose (mg/dL) 131 H 155 H (75-99) mg/dL Calcium (8.4-10.2) mg/dL AST (17-59) U/L ALT (4-49) U/L Alkaline Phosphatase (38-126) U/L Lactate Dehydrogenase (313-618) U/L C-Reactive Protein (<1.0) mg/dL Total Protein (6.3-8.2) g/dL Albumin (3.5-5.0) g/dL 10/04/20 10/04/20 10/04/20 Range/Units 00:06 04:00 04:00 WBC 30.6 H (3.8-10.6) k/uL RBC 2.50 L (4.30-5.90) m/uL Hgb 7.9 L (13.0-17.5) gm/dL Hct 23.9 L (39.0-53.0) % RDW 16.7 H (11.5-15.5) % Plt Count (150-450) k/uL Neutrophils # 29.1 H (1.3-7.7) k/uL Lymphocytes # 0.6 L (1.0-4.8) k/uL D-Dimer 6.93 H (<0.60) mg/L FEU ABG pH (7.35-7.45) ABG pCO2 (35-45) mmHg Sodium (137-145) mmol/L BUN (9-20) mg/dL Creatinine (0.66-1.25) mg/dL POC Glucose (mg/dL) 141 H (75-99) mg/dL Calcium (8.4-10.2) mg/dL AST (17-59) U/L ALT (4-49) U/L Alkaline Phosphatase (38-126) U/L Lactate Dehydrogenase (313-618) U/L C-Reactive Protein (<1.0) mg/dL Total Protein (6.3-8.2) g/dL Albumin (3.5-5.0) g/dL 10/04/20 10/04/20 10/04/20 Range/Units 04:00 05:16 06:11 WBC (3.8-10.6) k/uL RBC (4.30-5.90) m/uL Hgb (13.0-17.5) gm/dL Hct (39.0-53.0) % RDW (11.5-15.5) % Plt Count (150-450) k/uL Neutrophils # (1.3-7.7) k/uL Lymphocytes # (1.0-4.8) k/uL D-Dimer (<0.60) mg/L FEU ABG pH 7.23 L (7.35-7.45) ABG pCO2 53 H (35-45) mmHg Sodium 134 L (137-145) mmol/L BUN 118 H* (9-20) mg/dL Creatinine 2.68 H (0.66-1.25) mg/dL POC Glucose (mg/dL) 103 H (75-99) mg/dL Calcium 7.5 L (8.4-10.2) mg/dL AST 321 H (17-59) U/L ALT 328 H (4-49) U/L Alkaline Phosphatase 162 H (38-126) U/L Lactate Dehydrogenase 2829 H (313-618) U/L C-Reactive Protein 14.5 H (<1.0) mg/dL Total Protein 4.2 L (6.3-8.2) g/dL Albumin 2.0 L (3.5-5.0) g/dL Microbiology - Last 24 Hours (Table) 10/02/20 12:20 Blood Culture - Preliminary Blood No Growth after 24 hours 10/01/20 04:45 Gram Stain - Final Abdomen Wound Culture - Final Methicillin resist S. aureus Assessment and Plan Plan: 1 Acute hypoxemic respiratory failure secondary to COVID 19 pneumonitis. Required intubation on 09/12/2020. Had undergone tracheostomy and PEG tube placement on 09/22/2020. Did receive tocilizumab and convalescent plasma, remains currently on prednisone orally 40 mg by mouth daily. Chest x-ray findings are showing diffuse but the pulmonary infiltrates, MRSA and the patient started on Zyvox. There is some interval worsening in his oxygenation the patient's creatinine was 70% FiO2. Blood gases also showing a component of acute respiratory acidosis. Chest x-rays of is showing worsening of the bilateral pulmonary infiltrates patient has developed an acute leukocytosis with a white cell count 13.6. Consider Hospital-acquired pneumonia/VAP post prolonged hospitalization, mechanical ventilation and vent dependence. 2 MRSA pneumonia, clinically suspected, consider patient was started on Zyvox. a hospital-acquired/ventilator associated pneumonia. The patient has developed new onset leukocytosis in addition. Calcitonin level is mildly elevated and the patient was started on Zyvox to be a component of sepsis as the patient is episo dically being hypotensive and currently is on Santosh-Synephrine drip. 3 unresponsive, comatose state with present brainstem reflexes and absent cortical functions. CAT scan of the brain is essentially showing no acute abnormalities. EEG is consistent with metabolic encephalopathy without any seizure activity. Carotid Dopplers are unchanged. The patient neurologic status remains profoundly impaired. Repeat CAT scan of the brain is showing chronic ischemic changes involving the parietal lobes bilaterally. No acute abnormalities seen. 4 non-STEMI with troponin max of 6.5, echocardiogram with moderate concentric LVH 5 enteral feeding for nutritional support through a PEG tube. The patient is receiving enteral feeding for nutritional support via Nepro 6 acute kidney injury creatinine is on the rise and the patient is retaining fluid with diminished urine output. Nephrology will be asked to evaluate this patient. There is progressive worsening the renal function and creatinine is on the rise 7 foul smelling odor from his mouth, halitosis along with some bleeding around the tracheostomy site. CAT scan of the neck shows no acute abnormalities. Tracheostomy tube is in good location and there are no neck or pharyngeal abscesses. 8 hypernatremia, recovered 9 History of hypertension. 10 acute leukocytosis ,stable white count 11 diarrhea improved while the patient off lactulose she had a negative C. diff evaluation. 12 recurrent episodes of atrial flutter with rapid ventricular response, currently back in a normal sinus rhythm. The patient is on amiodarone drip 0.5 mg per minute and the patient will be transitioned to oral amiodarone and the patient is off anticoagulation. Amiodarone drip will be discontinued at 10 AM and the patient will be switched back to oral amiodarone in combination with metoprolol. As stated, he has not about of A. fib flutter yesterday and the patient is currently back to normal sinus rhythm. During the episode of A. fib, the patient becomes hypotensive. He was supported with some Santosh-Synephrine which is currently running at 0.5 mcg/kg per minute and the patient will be gradually weaned off and taken off the Santosh-Synephrine for now. Plan: Keep the patient off sedation, Neurologic functions are all impaired and the patient is not showing any signs of neurologic recovery. Repeat CAT scan of the brain was noted EEG was noted Neurologist on the case Treatment MRSA pneumonia with Zyvox 600 mg IV every 12 hours, would also add cefepime 1 g every 12 hours. IV Lasix 80 mg every 12 hours Continue enteral feeding for nutritional supportr Keep the patient prednisone 40 mg by mouth daily Monitor inflammatory markers Wean off pressors Amiodarone and switch it to by mouth amiodarone and keep the IV heparin for now. no anticoagulation for now Critical condition We'll continue to follow, prognosis extremely poor. The patient has not shown any signs of reasonable recovery. His odds of recovering from his extremely l ow. The patient is not doing much of her progress for now. I contacted the son and I gave him a lengthy update on the condition and his progress over the past 1 week. We'll continue to follow make further recommendations as would proceed. critically care evaluation, more than 30 minutes. Time with Patient: Greater than 30
--- NOTE | 2020-10-04 08:27 | XR ---
EXAMINATION TYPE: XR chest 1V portable DATE OF EXAM: 10/04/2020 COMPARISON: 10/03/2020 INDICATION: Covid pneumonia TECHNIQUE: Single frontal view of the chest is obtained. FINDINGS: The heart size is normal. The pulmonary vasculature is normal. Tracheostomy tube is in the midline. Scattered patchy infiltrates are present bilaterally. This may b e slightly increased over the interval. IMPRESSION: 1. Worsening patchy infiltrates present bilaterally.
[2020-10-04] MEDS ORDERED: ALBUMIN HUMAN 25% 50 ML in EMPTY BAG 1 BAG IVPB SCH (08:30)
--- NOTE | 2020-10-04 08:35 | P.PN ---
Subjective Patient is seen in follow-up for acute kidney injury. He is status post tracheostomy and PEG tube placement. Receiving tube feeding. Remains unre sponsive. Patient tested positive for coronavirus. Also on antibiotics for MRSA pneumonia. Urine output is 10-20 mL an hour. He is on low-dose vasopressor support. Vital signs: On low-dose vasopressor support. HEENT: Tracheostomy noted. LUNGS: Breath sounds decreased. HEART: Irregular rate and rhythm. ABDOMEN: Soft, no distention. EXTREMITITES: 1+ edema. Objective - Vital Signs Vital signs: Vital Signs Temp 98.8 F 10/04/20 04:00 Pulse 55 L 10/04/20 07:00 Resp 16 10/04/20 07:00 BP 115/68 10/04/20 00:00 Pulse Ox 98 10/04/20 07:00 Intake & Output 10/03/20 10/04/20 10/04/20 18:59 06:59 18:59 Intake Total 4243.423 5333.828 Output Total 925 270 Balance 986.670 1375.828 Weight 101.8 kg 106.3 kg Intake: IV 858 1014 .45 825 975 Pressure bag 33 39 Intake, IV Titration 349.093 415.828 Amount Dextrose 5% in Water 100 100 ml @ 618 mls/hr IV .Q10M ONE with Amiodarone 150 mg Rx#:[id number] Heparin Sod,Pork in 0.45% 249.093 NaCl 25,000 unit In 0.45 % NaCl 1 250ml.bag @ 10. 75 UNITS/KG/HR 9.987 mls/ hr IV .Q24H [facility] Rx#: [id number] Phenylephrine 40 mg In 415.828 Sodium Chloride 0.9% 250 ml @ 0.5 MCG/KG/MIN 17. 697 mls/hr IV .[id number] [facility] Rx#:[id number] Tube Feeding 294 390 Other 320 90 Output: Urine 325 270 Stool 600 Other: Voiding Method Indwelling Catheter Indwelling Catheter ABP, PAP, CO, CI - Last Documented Arterial Blood Pressure 136/49 - Labs CBC & Chem 7: 10/04/20 04:00 10/04/20 04:00 Labs: Abnormal Lab Results - Last 24 Hours (Table) 10/03/20 10/03/20 10/03/20 Range/Units 11:36 18:34 18:40 WBC 30.8 H (3.8-10.6) k/uL RBC 2.69 L (4.30-5.90) m/uL Hgb 8.3 L (13.0-17.5) gm/dL Hct 26.0 L (39.0-53.0) % RDW 16.7 H (11.5-15.5) % Plt Count 136 L (150-450) k/uL Neutrophils # (1.3-7.7) k/uL Lymphocytes # (1.0-4.8) k/uL D-Dimer (<0.60) mg/L FEU ABG pH (7.35-7.45) ABG pCO2 (35-45) mmHg Sodium (137-145) mmol/L BUN (9-20) mg/dL Creatinine (0.66-1.25) mg/dL POC Glucose (mg/dL) 131 H 155 H (75-99) mg/dL Calcium (8.4-10.2) mg/dL AST (17-59) U/L ALT (4-49) U/L Alkaline Phosphatase (38-126) U/L Lactate Dehydrogenase (313-618) U/L C-Reactive Protein (<1.0) mg/dL Total Protein (6.3-8.2) g/dL Albumin (3.5-5.0) g/dL 10/04/20 10/04/20 10/04/20 Range/Units 00:06 04:00 04:00 WBC 30.6 H (3.8-10.6) k/uL RBC 2.50 L (4.30-5.90) m/uL Hgb 7.9 L (13.0-17.5) gm/dL Hct 23.9 L (39.0-53.0) % RDW 16.7 H (11.5-15.5) % Plt Count (150-450) k/uL Neutrophils # 29.1 H (1.3-7.7) k/uL Lymphocytes # 0.6 L (1.0-4.8) k/uL D-Dimer 6.93 H (<0.60) mg/L FEU ABG pH (7.35-7.45) ABG pCO2 (35-45) mmHg Sodium (137-145) mmol/L BUN (9-20) mg/dL Creatinine (0.66-1.25) mg/dL POC Glucose (mg/dL) 141 H (75-99) mg/dL Calcium (8.4-10.2) mg/dL AST (17-59) U/L ALT (4-49) U/L Alkaline Phosphatase (38-126) U/L Lactate Dehydrogenase (313-618) U/L C-Reactive Protein (<1.0) mg/dL Total Protein (6.3-8.2) g/dL Albumin (3.5-5.0) g/dL 10/04/20 10/04/20 10/04/20 Range/Units 04:00 05:16 06:11 WBC (3.8-10.6) k/uL RBC (4.30-5.90) m/uL Hgb (13.0-17.5) gm/dL Hct (39.0-53.0) % RDW (11.5-15.5) % Plt Count (150-450) k/uL Neutrophils # (1.3-7.7) k/uL Lymphocytes # (1.0-4.8) k/uL D-Dimer (<0.60) mg/L FEU ABG pH 7.23 L (7.35-7.45) ABG pCO2 53 H (35-45) mmHg Sodium 134 L (137-145) mmol/L BUN 118 H* (9-20) mg/dL Creatinine 2.68 H (0.66-1.25) mg/dL POC Glucose (mg/dL) 103 H (75-99) mg/dL Calcium 7.5 L (8.4-10.2) mg/dL AST 321 H (17-59) U/L ALT 328 H (4-49) U/L Alkaline Phosphatase 162 H (38-126) U/L Lactate Dehydrogenase 2829 H (313-618) U/L C-Reactive Protein 14.5 H (<1.0) mg/dL Total Protein 4.2 L (6.3-8.2) g/dL Albumin 2.0 L (3.5-5.0) g/dL Microbiology - Last 24 Hours (Table) 10/02/20 12:20 Blood Culture - Preliminary Blood No Growth after 24 hours 10/01/20 04:45 Gram Stain - Final Abdomen Wound Culture - Final Methicillin resist S. aureus Assessment and Plan Plan: Assessment: 1. Acute kidney injury secondary to ATN secondary to septic shock. Creatinine 2.68 today. Urine output 20 mL an hour. Baseline creatinine near 1. No hydronephrosis and kidney ultrasound. 2. MRSA pneumonia maintained on antibiotics. 3. Acute hypoxic respiratory failure secondary to quit 19 pneumonitis. Status post tracheostomy and PEG tube placement this admission. 4. Hypernatremia from lack of oral water intake. Resolved. 5. A. fib with RVR. 6. Shock maintained on Santosh-Synephrine. Plan: Decrease Lasix to 80 mg IV once daily. 25 g IV albumin 2 doses today. Hep-Lock IV fluids. Wean vasopressors. Maintain tube feeding. Continue to monitor renal function and urine output. Continue to assess for renal replacement therapy on daily basis. Check phosphorus level.
[2020-10-04] MEDS ORDERED: CEFEPIME 1 GM in SODIUM CHLORIDE 0.9% 50 ML IVPB ONE (09:00)
[2020-10-04] MEDS: CHLORHEXIDINE GLUCONATE 15 ML CUP MUCOUS MEM SCH ×2 (09:04→19:28)
[2020-10-04] MEDS: CHOLECALCIFEROL 25 MCG (1000 IU) TABLET PO SCH (09:04)
[2020-10-04] MEDS: METOPROLOL TARTRATE 25 MG TAB PO SCH ×2 (09:04→19:28)
[2020-10-04] MEDS: ASCORBIC ACID 500 MG TAB PO SCH ×2 (09:04→19:28)
[2020-10-04] MEDS: ASPIRIN 81 MG PO SCH (09:04)
[2020-10-04] MEDS: ZINC SULFATE 220 MG CAP PO SCH (09:04)
[2020-10-04] MEDS: ATORVASTATIN 80 MG TAB PO SCH (09:04)
[2020-10-04] MEDS: predniSONE 20 MG TAB PO SCH (09:04)
[2020-10-04] MEDS: FAMOTIDINE 20 MG TAB PO SCH (09:04)
[2020-10-04] MEDS: AMIODARONE 200 MG TAB PO SCH ×2 (09:04→19:28)
[2020-10-04] MEDS: ARTIFICIAL TEARS-HYPROMELLOSE DROPS 15 ML BTL BOTH EYES SCH ×4 (09:05→19:30)
[2020-10-04] MEDS: LINEZOLID 600 MG in DEXTROSE/WATER 1 300ML.BAG IVPB SCH ×2 (09:14→19:30)
--- NOTE | 2020-10-04 09:17 | PN ---
PROGRESS NOTE Tavo Isaacs remains in sinus rhythm. This morning at about 4 o'clock he converted to sinus rhythm. He was in atrial fib with a rapid rate yesterday for which I have started him initially on Cardizem and then amiodarone drip. He is also on oral amiodarone as well. As soon as the drip is completed, we will continue oral amiodarone. He is hemodynamically stable. Prognosis remains poor. Neurologically, there is not much activity. I recommending that we should do comfort care for this gentleman who has poor prognosis. He already has a trach and PEG in place. He is in sinus rhythm. We will continue amiodarone. Prognosis remains guarded. MMODL / IJN: [id number] /
[2020-10-04] MEDS: ALBUMIN HUMAN 25% 50 ML in EMPTY BAG 1 BAG IVPB SCH ×4 (09:38→20:05)
[2020-10-04 10:58] LABS: Hepatitis B Surface AB- Quant 3.5 mIU/mL; Hepatitis B Surface Antibody Non-Reactive (Non-Reactive); Hepatitis B Surface Antigen Non-Reactive (Non-Reactive)
[2020-10-04 11:20] LABS: Glucose,Whole Blood 149 mg/dL (75-99)
--- NOTE | 2020-10-04 11:25 | P.NPCON ---
History of Present Illness - Reason for Consult acute renal failure - History of Present Illness Reason for consultation: Acute kidney injury History of present illness: I sign patient is a 54-year-old male seen in renal consultation for acute kidney injury. Patient's baseline creatinine is near 1 and is up to 2.68 today. Patient presented to the hospital on 09/03/2020 with shortness of breath. Patient did test positive for coronavirus. He has subsequently undergone tracheostomy and PEG tube placement. He is also being treated for MRSA pneumonia. He has been an intermittent A. fib and was main tained on amiodarone drip and is now on oral meds. Patient developed hypernatremia and is currently maintained on half-normal saline. Sodium level today is 134. He is also receiving tube feeding. He is maintained on IV Lasix 80 mg twice daily. Urine output is about 20 mL an hour. He is also on low-dose Santosh-Synephrine. Chest x-ray shows worsening patchy infiltrates bilaterally. Renal ultrasound revealed no evidence of hydronephrosis. Patient is being followed by neurology. Patient remains unresponsive and comatose. He is off sedation. Vital signs are stable. On low-dose Santosh-Synephrine. HEENT: Tracheostomy. LUNGS: Breath sounds decreased. HEART: Irregular rate and rhythm. ABDOMEN: No distention noted. EXTREMITITES: 1+ edema. Past Medical History Past Medical History: GERD/Reflux, Hypertension Additional Past Medical History / Comment(s): Pt states he tested covid + a week ago at [facility]. Other hx: Gout History of Any Multi-Drug Resistant Organisms: MRSA Date of last positivie culture/infection: 09/29/20 MDRO Source:: MRSA SPUTUM Past Surgical History: No Surgical Hx Reported Additional Past Surgical History / Comment(s): Colonoscopy Past Anesthesia/Blood Transfusion Reactions: No Reported Reaction Smoking Status: Former smoker - Past Family History Mother Family Medical History: No Reported History Additional Family Medical History / Comment(s): Mother is healthy Father Family Medical History: Cancer Additional Family Medical History / Comment(s): Kidney and liver cancer. Medications and Allergies Home Medications Medication Instructions Recorded Confirmed Type Albuterol Inhaler [Ventolin Hfa 2 puff INHALATION RT-QID PRN 09/02/20 09/02/20 History Inhaler] Azithromycin [Zithromax Z-pack (6 See Taper PO DIRECTED 09/02/20 09/02/20 History tabs)] Dexamethasone [Decadron] 3 mg PO BID 09/02/20 09/02/20 History Promethazine 6.25MG/5Ml [Phenergan 12.5 mg PO QID PRN 09/02/20 09/02/20 History Syrup] allopurinoL [Zyloprim] 300 mg PO DAILY 09/02/20 09/02/20 History amLODIPine [Norvasc] 10 mg PO DAILY 09/02/20 09/02/20 History Allergies Allergy/AdvReac Type Severity Reaction Status Date / Time No Known Allergies Allergy Verified 09/02/20 22:38 Physical Exam Vitals: Vital Signs Temp Pulse Resp BP Pulse Ox 10/04/20 07:00 55 L 16 98 10/04/20 06:00 52 L 21 97 10/04/20 05:00 52 L 32 H 97 10/04/20 04:00 98.8 F 84 32 H 97 10/04/20 03:00 81 32 H 98 10/04/20 02:00 80 32 H 97 10/04/20 01:00 80 33 H 97 10/04/20 00:00 98.6 F 105 H 41 H 115/68 94 L 10/03/20 23:05 98 32 H 96 10/03/20 23:00 85 26 H 127/78 95 10/03/20 22:00 81 21 103/62 95 10/03/20 21:00 79 26 H 108/68 99 10/03/20 20:00 98 F 108 H 26 H 109/64 99 10/03/20 19:00 105 H 32 H 109/64 85 L 10/03/20 18:00 126 H 32 H 128/57 92 L 10/03/20 17:00 116 H 31 H 108/58 92 L 10/03/20 16:00 98.8 F 116 H 31 H 109/60 91 L 10/03/20 15:00 106 H 33 H 107/57 90 L 10/03/20 14:00 93 32 H 156/54 90 L 10/03/20 13:00 126 H 32 H 125/63 90 L 10/03/20 12:00 108 H 32 H 119/69 89 L Intake and Output 10/03/20 10/04/20 10/04/20 22:59 06:59 14:59 Intake Total 040.396 6172.077 78.975 Output Total 800 185 Balance 371.178 2952.077 78.975 Intake: IV 624 702 .45 600 675 Pressure bag 24 27 Intake, IV Titration 56.751 359.077 78.975 Amount Phenylephrine 40 mg In 56.751 359.077 78.975 Sodium Chloride 0.9% 250 ml @ 0.5 MCG/KG/MIN 17. 697 mls/hr IV .[id number] [facility] Rx#:[id number] Tube Feeding 240 270 Other 60 60 Output: Urine 200 185 Stool 600 Other: Voiding Method Indwelling Catheter Indwelling Catheter Weight 106.3 kg ABP, PAP, CO, CI - Last 8 Hours Arterial Blood Pressure 136/49 Arterial Blood Pressure 143/54 Arterial Blood Pressure 138/53 Arterial Blood Pressure 124/62 Results - Lab Results Most recent lab results ABG pH 7.23 (7.35-7.45) L 10/04/20 05:16 ABG pCO2 53 mmHg (35-45) H 10/04/20 05:16 ABG pO2 89 mmHg (83-108) 10/04/20 05:16 ABG HCO3 22 mmol/L (21-25) 10/04/20 05:16 ABG O2 Saturation 96.4 % (94-97) 10/04/20 05:16 Calcium 7.5 mg/dL (8.4-10.2) L 10/04/20 04:00 Phosphorus 3.8 mg/dL (2.5-4.5) 09/15/20 03:45 Magnesium 2.3 mg/dL (1.6-2.3) 09/27/20 04:30 10/04/20 04:00 10/04/20 04:00 Assessment and Plan Plan: Assessment: 1. Acute kidney injury secondary to ATN secondary to septic shock. Creatinine 2.68 today. Urine output 20 mL an hour. Baseline creatinine near 1. No hydronephrosis and kidney ultrasound. 2. MRSA pneumonia maintained on antibiotics. 3. Acute hypoxic respiratory failure secondary to quit 19 pneumonitis. Status post tracheostomy and PEG tube placement this admission. 4. Hypernatremia from lack of oral water intake. Resolved. 5. A. fib with RVR. 6. Shock maintained on Santosh-Synephrine. Plan: Decrease Lasix to 80 mg IV once daily. 25 g IV albumin 2 doses today. Hep-Lock IV fluids. Wean vasopressors. Maintain tube feeding. Continue to monitor renal function and urine output. Continue to assess for renal replacement therapy on daily basis. Check phosphorus level. Thank you for the consultation. I will continue to follow the patient with you during his hospital stay.
[2020-10-04] MEDS: FUROSEMIDE 10 MG/ML 10 ML VIAL IV SCH (11:57)
--- NOTE | 2020-10-04 14:54 | P.PN ---
Subjective Shouldn't is admitted for respiratory failure secondary to Covid 19 10/04/2020 Patient has a extensive prolonged hospitalization for more than 30 days patient presently has tracheostomy and PEG tube in place patient has secondary bacterial pneumonia with the staph aureus and patient is on linezolid did patient has very minimal or no urine output continues to have renal dysfunction and worsening creatinine nephrology is following the patient and patient was started on Lasix. She and is presently on ventilatory support assist-control ventilation set up respiratory 22 titer volume 420 people 13 FiO2 of 70% patient has been off sedation in spite of which patient is unresponsive and comatose brainstem reflexes are present no particle function EEG showed diffuse encephalopathy. Computed tomography scan that was done yesterday showed chronic microvascular ischemic changes neurology is following the patient as well. Patient chest x- ray still showing pulmonary infiltrates. he is on amiodarone for atrial flutter/fibrillation. Patient was on IV heparin which was now discontinued Constitutional: Denied any fatigue denied any fever. Cardio vascular: denied any chest pain, palpitations Gastrointestinal denied any nausea vomiting Pulmonary: Short of breath on BiPAP Neurologic denied any new focal deficits All inpatient medications were reviewed and appropriate changes in these medications as dictated in the interval history and assessment and plan. Objective - Vital Signs Vital signs: Vital Signs Temp 99.0 F 10/04/20 08:00 Pulse 54 L 10/04/20 11:45 Resp 33 H 10/04/20 11:45 BP 115/68 10/04/20 00:00 Pulse Ox 93 L 10/04/20 11:45 Intake & Output 10/03/20 10/04/20 10/04/20 18:59 06:59 18:59 Intake Total 4217.092 1173.828 364.004 Output Total 925 270 35 Balance 706.040 6802.828 329.004 Weight 101.8 kg 106.3 kg Intake: IV 858 1014 65 0.45 Saline @ KVO 825 975 50 Normal Saline Pressure 33 39 15 bag Intake, IV Titration 349.093 415.828 89.004 Amount Dextrose 5% in Water 100 100 ml @ 618 mls/hr IV .Q10M ONE with Amiodarone 150 mg Rx#:[id number] Heparin Sod,Pork in 0.45% 249.093 NaCl 25,000 unit In 0.45 % NaCl 1 250ml.bag @ 10. 75 UNITS/KG/HR 9.987 mls/ hr IV .Q24H [facility] Rx#: [id number] Phenylephrine 40 mg In 415.828 89.004 Sodium Chloride 0.9% 250 ml @ 0.5 MCG/KG/MIN 17. 697 mls/hr IV .[id number] [facility] Rx#:[id number] Tube Feeding 294 390 150 Other 320 90 60 Output: Urine 325 270 35 Stool 600 Other: Voiding Method Indwelling Catheter Indwelling Catheter ABP, PAP, CO, CI - Last Documented Arterial Blood Pressure 134/50 - Exam PHYSICAL EXAMINATION: GENERAL: has a tracheostomy and ventilatory support patient is still having some purulent discharge from the tracheostomy site HEENT: She does have brainstem reflexes No conjunctival pallor. Normocephalic, atraumatic. No pharyngeal erythema. No thyromegaly. CARDIOVASCULAR: S1 and S2 present. No murmurs, rubs, or gallops. PULMONARY: Bilateral crackles ABDOMEN: Soft, nontender, nondistended, normoactive bowel sounds. No palpable organomegaly. PEG tube is in place MUSCULOSKELETAL: No joint swelling or deformity. EXTREMITIES: No cyanosis, clubbing, or pedal edema. NEUROLOGICAL: Patient is is not moving any of his limbs SKIN: No rashes. - Labs CBC & Chem 7: 10/04/20 04:00 10/04/20 04:00 Labs: Abnormal Lab Results - Last 24 Hours (Table) 10/03/20 10/03/20 10/04/20 Range/Units 18:34 18:40 00:06 WBC 30.8 H (3.8-10.6) k/uL RBC 2.69 L (4.30-5.90) m/uL Hgb 8.3 L (13.0-17.5) gm/dL Hct 26.0 L (39.0-53.0) % RDW 16.7 H (11.5-15.5) % Plt Count 136 L (150-450) k/uL Neutrophils # (1.3-7.7) k/uL Lymphocytes # (1.0-4.8) k/uL D-Dimer (<0.60) mg/L FEU ABG pH (7.35-7.45) ABG pCO2 (35-45) mmHg Sodium (137-145) mmol/L BUN (9-20) mg/dL Creatinine (0.66-1.25) mg/dL POC Glucose (mg/dL) 155 H 141 H (75-99) mg/dL Calcium (8.4-10.2) mg/dL AST (17-59) U/L ALT (4-49) U/L Alkaline Phosphatase (38-126) U/L Lactate Dehydrogenase (313-618) U/L C-Reactive Protein (<1.0) mg/dL Total Protein (6.3-8.2) g/dL Albumin (3.5-5.0) g/dL 10/04/20 10/04/20 10/04/20 Range/Units 04:00 04:00 04:00 WBC 30.6 H (3.8-10.6) k/uL RBC 2.50 L (4.30-5.90) m/uL Hgb 7.9 L (13.0-17.5) gm/dL Hct 23.9 L (39.0-53.0) % RDW 16.7 H (11.5-15.5) % Plt Count (150-450) k/uL Neutrophils # 29.1 H (1.3-7.7) k/uL Lymphocytes # 0.6 L (1.0-4.8) k/uL D-Dimer 6.93 H (<0.60) mg/L FEU ABG pH (7.35-7.45) ABG pCO2 (35-45) mmHg Sodium 134 L (137-145) mmol/L BUN 118 H* (9-20) mg/dL Creatinine 2.68 H (0.66-1.25) mg/dL POC Glucose (mg/dL) (75-99) mg/dL Calcium 7.5 L (8.4-10.2) mg/dL AST 321 H (17-59) U/L ALT 328 H (4-49) U/L Alkaline Phosphatase 162 H (38-126) U/L Lactate Dehydrogenase 2829 H (313-618) U/L C-Reactive Protein 14.5 H (<1.0) mg/dL Total Protein 4.2 L (6.3-8.2) g/dL Albumin 2.0 L (3.5-5.0) g/dL 05/08/21 05/08/21 05/08/21 Range/Units 05:16 06:11 11:19 WBC (3.8-10.6) k/uL RBC (4.30-5.90) m/uL Hgb (13.0-17.5) gm/dL Hct (39.0-53.0) % RDW (11.5-15.5) % Plt Count (150-450) k/uL Neutrophils # (1.3-7.7) k/uL Lymphocytes # (1.0-4.8) k/uL D-Dimer (<0.60) mg/L FEU ABG pH 7.23 L (7.35-7.45) ABG pCO2 53 H (35-45) mmHg Sodium (137-145) mmol/L BUN (9-20) mg/dL Creatinine (0.66-1.25) mg/dL POC Glucose (mg/dL) 103 H 149 H (75-99) mg/dL Calcium (8.4-10.2) mg/dL AST (17-59) U/L ALT (4-49) U/L Alkaline Phosphatase (38-126) U/L Lactate Dehydrogenase (313-618) U/L C-Reactive Protein (<1.0) mg/dL Total Protein (6.3-8.2) g/dL Albumin (3.5-5.0) g/dL Microbiology - Last 24 Hours (Table) 10/02/20 12:20 Blood Culture - Preliminary Blood No Growth after 24 hours 10/01/20 04:45 Gram Stain - Final Abdomen Wound Culture - Final Methicillin resist S. aureus Assessment and Plan Plan: -Acute hypoxic respiratory failure secondary to Covid 19 pneumonia, extensive interstitial pneumonia on mechanical ventilation secondary bacterial bronchitis and pneumonia with MRSA for which patient is on linezolid -Status post PEG tube and tracheostomy placement -Acute kidney injury and nephrology consulted and pending -Atrial flutter -Sputum growing MRSA -Continued fevers -Leukocytosis -Acute lactic acidosis -Hypocalcemia -Atrial fibrillation with fast ventricular rate -Change in mental status, acute metabolic encephalopathy -Elevated random blood glucose -Hypernatremia -Hypertension -Elevated troponin possibly secondary to type II acute myocardial infarction secondary to hypoxemia and COVID-19 -History of gastroesophageal reflux disease -GI prophylaxis with Pepcid -DVT prophylaxis with Lovenox -Full code Recommendations and discussion: Recommend to continue with current medications and continue to monitor in the ICU as patient continues to be on mechanical vent intubated. Patient is off of sedation with no activity noted and underwent CT showing no acute process. Neurology following recommending repeat CT and EEG was abnormal. Cardiology following for atrial flutter and placed on amiodarone drip along off heparin drip. Patient continues on IV heparin although was transitioned to oral amiodarone. Patient is presently on Lasix and patient's serum creatinine continued to get worse and nephrology is following the patient Patient currently tracheostomy dependent. FiO2 is at 50 and a PEEP of 13. Weaning as tolerated per vehicle service attendant. Continue with Accu-Cheks every 6 and sliding scale as needed. Senior Interior Designer following closely. Pulmonary following closely. Due to multiple complex medical issues, prognosis remains extremely poor and guarded. Need to discuss with the family about CODE STATUS. Changes overall poor prognosis no significant improvement. Patient is more appropriate for hospice same thing was discussed with the family members by the vehicle service attendant
[2020-10-04 18:11] LABS: Glucose,Whole Blood 164 mg/dL (75-99)
[2020-10-04] MEDS: AMIODARONE 450 MG in DEXTROSE 5% IN WATER 250 ML IV SCH ×2 (18:23)
[2020-10-04] MEDS: CEFEPIME 1 GM in SODIUM CHLORIDE 0.9% 50 ML IVPB SCH (19:28)
[2020-10-04 23:53] LABS: Glucose,Whole Blood 162 mg/dL (75-99)
[2020-10-05] MEDS: INSULIN ASPART (NovoLOG) 100 UNIT/ML VIAL SQ SCH ×5 (00:35→23:59)
[2020-10-05 04:15] LABS: Anisocytosis Slight; Basophils % (A) 0 %; Eosinophils % (A) 0 %; Hypochromasia Slight; Lymphocytes # (A) 0.5 k/uL (1.0-4.8); Lymphocytes % (A) 2 %; MCH 31.7 pg (25.0-35.0); MCHC 33.4 g/dL (31.0-37.0); MCV 94.9 fL (80.0-100.0); Macrocytosis Slight; Mean Platelet Volume 10.3; Monocytes # (A) 0.7 k/uL (0-1.0); Monocytes % (A) 3 %; Neutrophils # (A) 22.9 k/uL (1.3-7.7); Neutrophils % (A) 95 %; Platelet Count 106 k/uL (150-450); RBC 2.08 m/uL (4.30-5.90); WBC 24.1 k/uL (3.8-10.6)
[2020-10-05 04:27] LABS: HGB 6.6 gm/dL (13.0-17.5)
[2020-10-05 04:28] LABS: HCT 19.8 % (39.0-53.0)
[2020-10-05 04:32] LABS: Albumin 2.3 g/dL (3.5-5.0); Calcium 7.6 mg/dL (8.4-10.2); Phosphorus 6.7 mg/dL (2.5-4.5); Potassium 4.9 mmol/L (3.5-5.1); Total Bilirubin 0.6 mg/dL (0.2-1.3); Total Protein 4.4 g/dL (6.3-8.2)
[2020-10-05 04:47] LABS: Anisocytosis Slight; MCH 31.6 pg (25.0-35.0); MCHC 33.2 g/dL (31.0-37.0); MCV 95.1 fL (80.0-100.0); Macrocytosis Slight; Mean Platelet Volume 10.1; Platelet Count 103 k/uL (150-450); RBC 2.09 m/uL (4.30-5.90); RDW 17.1 % (11.5-15.5); WBC 23.9 k/uL (3.8-10.6)
[2020-10-05 04:51] LABS: HCT 19.9 % (39.0-53.0); HGB 6.6 gm/dL (13.0-17.5)
[2020-10-05] MEDS: PHENYLEPHRINE 40 MG in SODIUM CHLORIDE 0.9% 250 ML IV SCH (04:51)
[2020-10-05 05:31] LABS: ABG Base Excess -6.7 mmol/L; ABG HCO3 21 mmol/L (21-25); ABG PCO2 49 mmHg (35-45); ABG PH 7.24 (7.35-7.45); ABG PO2 129 mmHg (83-108); ABG TCO2 22 mmol/L (19-24); Allen Test Performed? Yes
[2020-10-05] MEDS: ALBUTEROL HFA INHALER INHALATION SCH ×4 (07:32→20:18)
[2020-10-05] MEDS: CHOLECALCIFEROL 25 MCG (1000 IU) TABLET PO SCH (07:50)
[2020-10-05] MEDS: CHLORHEXIDINE GLUCONATE 15 ML CUP MUCOUS MEM SCH ×2 (07:50→21:30)
[2020-10-05] MEDS: ATORVASTATIN 80 MG TAB PO SCH (07:51)
[2020-10-05] MEDS: ZINC SULFATE 220 MG CAP PO SCH (07:51)
[2020-10-05] MEDS: ASPIRIN 81 MG PO SCH (07:51)
[2020-10-05] MEDS: ARTIFICIAL TEARS-HYPROMELLOSE DROPS 15 ML BTL BOTH EYES SCH ×4 (07:51→21:31)
[2020-10-05] MEDS: FAMOTIDINE 20 MG TAB PO SCH (07:51)
[2020-10-05] MEDS: predniSONE 20 MG TAB PO SCH (07:51)
[2020-10-05] MEDS: ASCORBIC ACID 500 MG TAB PO SCH ×2 (07:51→21:30)
[2020-10-05] MEDS: LINEZOLID 600 MG in DEXTROSE/WATER 1 300ML.BAG IVPB SCH ×2 (07:53→21:29)
[2020-10-05] MEDS: AMIODARONE 100 MG TAB PO SCH ×2 (07:54→21:30)
--- NOTE | 2020-10-05 07:59 | XR ---
EXAMINATION TYPE: XR chest 1V portable DATE OF EXAM: 10/05/2020 COMPARISON: 10/04/2020 INDICATION: Covid TECHNIQUE: Single frontal view of the chest is obtained. FINDINGS: The heart size is normal. The pulmonary vasculature is normal. Patchy infiltrates are present bilaterally. Findings can be compatible with atypical pneumonia. Trach eostomy tube is in the midline. IMPRESSION: 1. Patchy bilateral lung infiltrates, similar to prior study, can be compatible with atypical pneumon ia.
[2020-10-05] MEDS: CEFEPIME 1 GM in SODIUM CHLORIDE 0.9% 50 ML IVPB SCH ×2 (08:04→21:29)
[2020-10-05] MEDS: METOPROLOL TARTRATE 12.5 MG TAB PO SCH (08:22)
--- NOTE | 2020-10-05 08:29 | P.PN ---
Subjective Patient is seen in follow-up for acute kidney injury. He is status post tracheostomy and PEG tube placement. Receiving tube feeding. Remains unre sponsive. Patient tested positive for coronavirus. Also on antibiotics for MRSA pneumonia. Urine output is now 0-5 mL an hour. He is on low-dose vasopressor support. Also receiving a unit of blood. Vital signs: On low-dose vasopressor support. HEENT: Tracheostomy noted. LUNGS: Breath sounds decreased. HEART: Bradycardic. ABDOMEN: Soft, no distention. EXTREMITITES: 1+ edema. Objective - Vital Signs Vital signs: Vital Signs Temp 98.7 F 10/05/20 08:00 Pulse 52 L 10/05/20 08:15 Resp 32 H 10/05/20 08:00 BP 137/44 10/05/20 07:04 Pulse Ox 100 10/05/20 08:15 Intake & Output 10/04/20 10/05/20 10/05/20 18:59 06:59 18:59 Intake Total 652.004 763.292 73 Output Total 65 29 0 Balance 587.004 734.292 73 Weight 108.1 kg 108.2 kg Intake: IV 143 169 13 0.45 Saline @ KVO 110 130 10 Normal Saline Pressure 33 39 3 bag Intake, IV Titration 89.004 204.292 Amount Phenylephrine 40 mg In 89.004 204.292 Sodium Chloride 0.9% 250 ml @ 0.5 MCG/KG/MIN 17. 697 mls/hr IV .[id number] ON LICENSE OF [facility] Rx#:[id number] Tube Feeding 330 300 30 Blood Product 0 Rc As-1 Unit 0 [id number] Other 90 90 30 Output: Urine 65 29 0 Other: Voiding Method Indwelling Catheter Indwelling Catheter ABP, PAP, CO, CI - Last Documented Arterial Blood Pressure 145/49 - Labs CBC & Chem 7: 10/05/20 04:30 10/05/20 04:00 Labs: Abnormal Lab Results - Last 24 Hours (Table) 10/04/20 10/04/20 10/04/20 Range/Units 11:19 18:09 23:52 WBC (3.8-10.6) k/uL RBC (4.30-5.90) m/uL Hgb (13.0-17.5) gm/dL Hct (39.0-53.0) % RDW (11.5-15.5) % Plt Count (150-450) k/uL Neutrophils # (1.3-7.7) k/uL Lymphocytes # (1.0-4.8) k/uL ABG pH (7.35-7.45) ABG pCO2 (35-45) mmHg ABG pO2 (83-108) mmHg ABG O2 Saturation (94-97) % Sodium (137-145) mmol/L Carbon Dioxide (22-30) mmol/L BUN (9-20) mg/dL Creatinine (0.66-1.25) mg/dL Glucose (74-99) mg/dL POC Glucose (mg/dL) 149 H 164 H 162 H (75-99) mg/dL Calcium (8.4-10.2) mg/dL Phosphorus (2.5-4.5) mg/dL AST (17-59) U/L ALT (4-49) U/L Alkaline Phosphatase (38-126) U/L Total Protein (6.3-8.2) g/dL Albumin (3.5-5.0) g/dL Crossmatch 10/05/20 10/05/20 10/05/20 Range/Units 04:00 04:00 04:30 WBC 24.1 H 23.9 H (3.8-10.6) k/uL RBC 2.08 L 2.09 L (4.30-5.90) m/uL Hgb 6.6 L* 6.6 L* (13.0-17.5) gm/dL Hct 19.8 L* 19.9 L* (39.0-53.0) % RDW 17.0 H 17.1 H (11.5-15.5) % Plt Count 106 L 103 L (150-450) k/uL Neutrophils # 22.9 H (1.3-7.7) k/uL Lymphocytes # 0.5 L (1.0-4.8) k/uL ABG pH (7.35-7.45) ABG pCO2 (35-45) mmHg ABG pO2 (83-108) mmHg ABG O2 Saturation (94-97) % Sodium 133 L (137-145) mmol/L Carbon Dioxide 21 L (22-30) mmol/L BUN 135 H* (9-20) mg/dL Creatinine 3.04 H (0.66-1.25) mg/dL Glucose 118 H (74-99) mg/dL POC Glucose (mg/dL) (75-99) mg/dL Calcium 7.6 L (8.4-10.2) mg/dL Phosphorus 6.7 H (2.5-4.5) mg/dL AST 227 H (17-59) U/L ALT 265 H (4-49) U/L Alkaline Phosphatase 140 H (38-126) U/L Total Protein 4.4 L (6.3-8.2) g/dL Albumin 2.3 L (3.5-5.0) g/dL Crossmatch 10/05/20 10/05/20 Range/Units 05:19 05:25 WBC (3.8-10.6) k/uL RBC (4.30-5.90) m/uL Hgb (13.0-17.5) gm/dL Hct (39.0-53.0) % RDW (11.5-15.5) % Plt Count (150-450) k/uL Neutrophils # (1.3-7.7) k/uL Lymphocytes # (1.0-4.8) k/uL ABG pH 7.24 L (7.35-7.45) ABG pCO2 49 H (35-45) mmHg ABG pO2 129 H (83-108) mmHg ABG O2 Saturation 99.0 H (94-97) % Sodium (137-145) mmol/L Carbon Dioxide (22-30) mmol/L BUN (9-20) mg/dL Creatinine (0.66-1.25) mg/dL Glucose (74-99) mg/dL POC Glucose (mg/dL) (75-99) mg/dL Calcium (8.4-10.2) mg/dL Phosphorus (2.5-4.5) mg/dL AST (17-59) U/L ALT (4-49) U/L Alkaline Phosphatase (38-126) U/L Total Protein (6.3-8.2) g/dL Albumin (3.5-5.0) g/dL Crossmatch See Detail Microbiology - Last 24 Hours (Table) 10/02/20 12:20 Blood Culture - Preliminary Blood No Growth after 48 hours Assessment and Plan Plan: Assessment: 1. Acute kidney injury secondary to ATN secondary to septic shock. Creatinine 3.04 today. Urine output 0-5 mL an hour. Baseline creatinine near 1. No hydronephrosis and kidney ultrasound. 2. MRSA pneumonia maintained on antibiotics. 3. Acute hypoxic respiratory failure secondary to quit 19 pneumonitis. Status post tracheostomy and PEG tube placement this admission. 4. Hypernatremia from lack of oral water intake. Resolved. 5. A. fib with RVR. On oral amiodarone. 6. Shock maintained on Santosh-Synephrine. 7. Acute blood loss anemia. Receiving a unit of blood. 8. Hyperphosphatemia secondary to acute kidney injury. Plan: Lasix 80 mg IV after blood transfusion completed. I will give him a dose of IV DDAVP. Wean vasopressors. Maintain tube feeding. Continue to monitor renal function and urine output. Add PhosLo. Repeat BMP this evening. If no improvement in urine output, plan to initiate renal replacement therapy tomorrow.
[2020-10-05] MEDS ORDERED: DARBEPOETIN ALFA 40 MCG/0.4 ML SYRINGE SQ SCH (08:30)
[2020-10-05] MEDS ORDERED: DESMOPRESSIN ACETATE 24 MCG in SODIUM CHLORIDE 0.9% 50 ML IVPB ONE (08:45)
--- NOTE | 2020-10-05 09:05 | P.PN ---
Subjective Progress Note Date: 10/05/20 09/29/2020 the patient is being seen in follow-up. The patient is an acute hypoxic respiratory failure secondary to COVID-19 limited pneumonia. The patient is post intubation mechanical ventilation as of 09/12/2020. The patient undergone tracheostomy and PEG tube insertion 09/22/2020. During the course of the treatment, the patient received a combination of steroids, convalescent plasma and Tocilizumab. The patient continues to be on IV Solu-Medrol 40 mg IV every 8 hours. The patient is also on Lovenox 40 mg subcu to 24 hours. The LDH level from 09/27/2000 was 1528 and the patient's CRP level was 13.5. Renal function stable. The patient remains in intensive care unit and the patient is ventilator dependent. The patient remains on mechanical ventilator on assist control mode rate of 32 with a tidal volume of 420, fio2 50% with a PEEP of 13. The peak airway pressure is around 37. Static pressures around 33. He does have a foul-smelling odor from his mouth. He has a Bivona tracheostomy tube #7. Patient is sedated with propofol running at 40 mcg/kg per minute and fentanyl at 1.5 mg/kg/h. IV fluids are running at KVO and the patient is receiving enteral feeding for nutritional support utilizing Nepro 25 mL every 24 hours if the patient is also on Cleviprex for blood pressure control and he is off the medication. Chest x-ray showing but the pulmonary infiltrates involving the mid and lower lobes bilaterally quite dense and lower lobes. Patient's tracheostomy tube is in a good location. Hemodynamically stable on no pressors. Attempts to wean him off the sedation has failed and the patient became tachycardic and he has required Cleviprex on and off. Nevertheless, Cleviprex is made in become tachycardic. On 09/30/2020 by the patient is completely of sedation for the past 24 hours. Note that prior attempts to get this patient off sedation at failure the patient was developing an acute hypertensive reaction and ultimately I was able to get him off the propofol and fentanyl yesterday and he does have labetalol as a backup which was never used as the patient remained normotensive during the process. His been off sedation for at least 16 hours. Neurologically, significantly impaired, completely unresponsive, barely any cough or gag and limited particularly response. Does not respond to any verbal or painful stimulation. He remains on a mechanical ventilator. This morning he is an assist-control mode at the rate of 32 with a tidal volume of 420 and FiO2 of 50% with a PEEP of 13. The blood gases from today is still pending. Meanwhile, the chest x-ray shows essentially stable findings with a Bivona tracheostomy tube in place and there is still persistent but the pulmonary infiltrates, essentially unchanged compared to yesterday. Another issue is the halitosis as the patient has a bad odor coming from his mouth. There is some purulent secretions around the tracheostomy tube that was noted at the same time there is some bleeding this coming from his mouth and the patient has required frequent suctioning. I noted the canister and that is probably around 200 mL of bloody material collected since yesterday. His white cell count is at 21. The patient is on IV cefepime. Focused on is obtained from yesterday was 0.19. Otherwise, rest of the electrodes are showing a component of hyperchloremic hypernatremia. Sodium is at 147. Creatinine is 0.9. LDH from yesterday was 2371. The patient currently is IV Solu-Medrol 40 mg every 8 hours. The patient is also on Lovenox 40 mg subcu to 24 hours. As mentioned, his been off sedation and off paralytics. Enteral feeding for nutritional support is through Nepro via PEG tube at the rate of 18 mL an hour On 10/01/2020, the patient remains unresponsive despite being off sedation for 48 hours. He is off paralytics. He is off propofol. He is off fentanyl. Penicillin significant or reasonable neurological recovery yet. The patient has brainstem reflexes. Nevertheless, the patient is not responding to any painful stimulation. Does not respond to any verbal commands. Does not open up his eyes spontaneously. Does not move his extremities spontaneously. The CAT scan of the head that was done on 09/30/2020 showed age-related atrophy with chronic small vessel ischemic change without any acute process. He is on mechanical ventilator. He remains on assist control mode at the rate of 32 with a tidal volume of 420 and the respiratory rate of 32 with an FiO2 of 50% with a PEEP of 13. Blood gases from today showed a pH of 7.36 with a pCO2 of 56 with a pO2 of 62 and this is essentially the same as yesterday without any major interval change. Chest x-ray from today is showing diffuse bilateral pulmonary infiltrates, unchanged and the patient has a tracheostomy tube in place which is in the 1 tracheostomy tube #7. No evidence of any pneumothorax. He also CAT s can of the neck yesterday that showed tracheostomy tube in good location. The CAT scan of the neck was essentially on remarkable. The lungs showed patchy groundglass airspace disease bilaterally, he has slightly improved compared to the prior study. Small effusions were also noted. Mediastinum was essentially within normal limits. The patient's LDH level is at 2244 and a CRP level is at 20.5. Creatinine is at 1.3 which is a rise compared to yesterday and the White counts was a 22.7 with a hemoglobin of 9.6. He is currently on prednisone 40 mg by mouth daily. He is on Lovenox 40 mg subcu every 24 hours. His net fluid balance is -560 mL over the past 24 hours. Enteral feeding is in the form of Nepro at the rate of 80 mL an hour. He is also having IV fluids in the form of normal saline running at 75 mL an hour. Sodium level is 48 with a chloride level of 112. D-dimer level is at 3.48. 10/02/2020, the patient remains completely unresponsive. His been off sedatives and paralytics for the past 72 hours. No neurologic recovery. No responsiveness. He has a weak cough. Given her reflexes aren't impaired. Corneal reflexes are weak. Does not withdraw to painful stimulation. Does not have any spottiness eye-opening. Neurologic exam is essentially unchanged compared to yesterday. As of a neuro workup, the patient has already undergone a CAT scan of the brain that showed no acute abnormalities. Neurologic consultation be obtained based on his underlying unresponsiveness. EEG will be also obtained. He remains on a mechanical ventilator. This morning, he is on assist control mode at the rate of 32 with a tidal volume of 420 and a PEEP of 13 with an FiO2 of 50%. Chest x-ray showing some lateral lower lobe pulmonary infiltrates, and there is some worsening and infiltration on the right. The patient has a blood. This showed a pH of 7.35 with episodes of 51 and pO2 of 67. Protested troponin was mildly elevated at 0.19. The sputum was showing MRSA and there is a concern that the patient is developing a superinfection on a ventilator associated pneumonia knowing that there is a new infiltration in the right lower lobe and the patient has developed some new onset leukocytosis and a white cell count is currently up to 25.4. In terms of COVID-19 related pneumonia, the patient's d-dimer is at 3.6, LDH level is 2456 with a CRP of 20.4. The patient is currently on Lovenox 40 mg subcu on a daily basis and the patient is also on prednisone 40 mg oral. Since yesterday, the patient also has developed an acute kidney injury. Creatinine is up to 2. Urine output is not or that of 30 mL an hour and the net fluid balance over the past 24 hours has been +2 L. IV fluids running at a rate of 75 mL of half-normal saline. The sodium level is down to 144. BUN is at 96 with a creatinine of 2.08. Liver function tests have been essentially within normal limits. The patient is having diarrhea output has been ordered of 400 mL over the past 12 hours. He is currently receiving enteral feeding in the form of Nepro at the rate of 18 mL an hour. 10/03/2020, the patient has been off sedation and paralytics since 10/12/2020 and this makes it approximately 96 hours. Neurologically, still unresponsive, he is at the point it is opening up his eyes , and the patient is not following commands, is not moving his extremities, does not grimace to painful s timulation, brainstem reflexes are still weak although he does have a weak cough and positive pupillary reflex with sluggish corneals. Neurologist on the case. EEG was done and it was consistent with metabolic encephalopathy. Specifically, the EEG showed background slowing and generalized cerebral dysfunction. No seizure activity was noted. A contrast enhanced CAT scan of the brain to be done today. Carotid Dopplers were within normal and negative for any hemodynamically significant carotid artery stenosis. Meanwhile, the patient is on a mechanical ventilator. Vent settings are essentially the same with a rate of 32, tidal volume of 420 and a PEEP of 13 with an FiO2 of 50%. Blood pressure with a pH of 7.31 with a pCO2 of 50 and pO2 of 77. Chest x-ray findings are essentially unchanged and the patient has stable bilateral pulmonary infiltrates and a tracheostomy tube is in a good location. No significant orotracheal secretions. . Cultured MRSA in his sputum. Due to concern of superinfection and the focus is on level of 0.6, I started the patient on Zyvox yesterday 600 mg IV every 12 hours. He does have halitosis and the workup has been essentially negative including CAT scan of his neck. Note that the most recent CAT scan of the chest was showing some limited improvement in the right infiltrates related to COVID-19 related pneumonia. The patient's inflammatory markers are showing an elevated LDH from yesterday of 2456 and a CRP level of 20.4. Unfortunately, he has developed an acute kidney injury. The findings on the case. Creatinine is up to 2.3 and the BUN of 106. The patient is currently receiving IV fluids and the patient is on half-normal saline at the rate of 75 mL's an hour. The fluid balance over the past 24 hours has been +1.1 L. No major electrolyte disturbance. There is a drop in hemoglobin without evidence of any GI bleed. Hemoglobin today is at 8.5 with a white cell count of 23 and was supposed much comparable to yesterday's counts. He is platelet count is also low at 104. He had he remains on prednisone 40 mg by mouth daily. He remains on anticoagulation as the patient had a cardiac is this yesterday when he went into atrial flutter with rapid ventricular response and during that time the patient became hemodynamically unstable and he dropped his systolic blood pressure down to the mid 60s. At that point, he received an immediate cardioversion with subsequent improvement in his hemodynamics. Based on that event, the patient was kept on IV heparin per cardiac recommendation. He did have a few more episodes since then it was self-limiting and nonsustained. He was started on amiodarone drip and conjunction with IV heparin and amiodarone currently running at 0.5 mg per minute and the patient is also on metoprolol 25 mg by mouth twice a day. 10/04/2020, the patient clinically unchanged unresponsive and comatose. The patient has has not shown any signs of neurologic recovery over the past week. His been off sedation. As stated yesterday, he opens up his eyes, does not follow any commands. Brain stem reflexes are present. No cortical functions. EEG showing diffuse cerebral dysfunction. A repeat CAT scan of the brain was done yesterday and the patient was found to have hypodensity in the parietal lobes bilaterally consistent with chronic microvascular ischemia and that has been unchanged compared to the earlier evaluation. Ventricles are normal in size. There is no mass effect. No acute stroke. Neurology has still seeing this patient on a regular basis. The workup was essentially negative. We are still within the context of metabolic encephalopathy. As stated, there is no evidence of any acute stroke. Hypoxic encephalopathy also is within the differential diagnosis. Meanwhile, the patient is still on a mechanical ventilator. This morning, he is essentially on the same vent setting within assist-control of 32, tidal volume of 420, PEEP of 13 and FiO2 is currently at 70%. Blood gas from this morning shows a pH of 7.23 with a pCO2 of 53 and pO2 of 89. The chest x-ray from this morning shows adequate positioning of the tracheostomy tube. No significant interval change in terms of his bilateral pulmonary infiltrates and these are consistent with COVID-19 related pneumonia. No significant orotracheal secretions. He does have some old dried up blood in his mucosal membranes of the mouth and the tongue. No active bleeding. No fever. He has developed an acute kidney injury and he has progressive worsening his kidney function and he has also developed an acute leukocytosis. Sputum was positive for MRSA and the patient was started on Zyvox. Upon careful review of the follow-up chest x-rays, there is probably worsening in the bilateral pulmonary infiltrates and worsening infiltration on the left lower lobe and the right lower lobe. In terms of his white cell count, it is up to 30.6. His renal function is also impaired and the patient has developed an acute kidney injury in the creatinine is on the rise and is currently up to 2.68. Liver function tests are also abnormal and the patient has a component of transaminitis. LDH level is on the rise and LDH level is up to 2829 and a CRP level is 14.5. Urine output is no order of 10-20 mL an hour. Overall fluid balance has been +4.3 L positive over the past 24 hours. He is currently on a maintenance IV fluids of 0.45 0.45 at the rate of 75 mL an hour. He is also receiving enteral feeding for nutritional support. He is on Nepro at the rate of 30 mL an hour. In terms of his cardiac rhythm, he remains in sinus. He was taken off the amiodarone drip. He was switched to oral amiodarone 200 mg by mouth twice a day and he was also maintained on metoprolol 25 mg by mouth twice a day. , Overnight, the patient had another run of atrial flutter/fib at the rate of 140-160. At that point, he was restarted back then amiodarone drip and his back into normal sinus rhythm for now. IV heparin has been discontinued. 2020, patient is being seen in follow-up in the intensive care units. Neurologically unchanged. Occasionally opens up his eyes and blinks. Does not follow any commands. Overall neurologic examination is the same as yesterday without any interval progression or worsening. Meanwhile, the patient is on a mechanical ventilator. As stated earlier, he is a tracheostomy tube. Current vent settings include an assist-control mode at the rate of 32 with a tidal volume of 420 and a PEEP is a 13 with an FiO2 of 60%. Chest x-ray showing diffuse breath and pulmonary infiltrates with areas of consolidation. Blood gases from today showed a pH of 7.24 with a pCO2 of 49 and pO2 of 129. Sputum was positive for MRSA and the patient is currently on Zyvox. The patient is afebrile. His white cell count is currently at 23.9. In terms of his COVID-19 related pneumonia, the patient is on steroids and the patient is receiving 40 mg by mouth daily. Antibiotic coverage is currently with a combination of Zyvox and cefepime. Another issue is the tracheostomy stoma where the patient has a large incision on his back and the stitches have already fallen apart and the patient has a dehisced wound. The stoma itself is intact. The skin around it is open and there is some liquidy material accumulating and pulling in that area. Appropriate dressing is applied to the general surgeon will be informed of this ongoing problem. Meanwhile, the patient is also developing progressive worsening renal function. Creatinine is up to 3.0. His overall urine output is no order of less than 10 mL an hour and her net fluid balance for yesterday has been +2.5 L. As such, the findings on the case and the plan is to proceed with hemodialysis with the next 24 hours especially of his lymphoma in his urine output and renal function. He is currently on Lasix and he is receiving Lasix 80 mg on a daily basis. No major electrode disturbance for now. He is receiving enteral feeding for nutritional support. Has a PEG tube in place. He has diffuse swelling all 4 extremities. As mentioned, he has a ongoing low- grade mucosal lesions/be bleed from his tongue and his lips. His hemoglobin is up to 6.6 and the patient is currently receiving a unit of packed RBC. No clear evidence of any GI bleed. He has a fecal management system in place. No diarrhea. Meanwhile, his cardiac rhythm and remained sinus. No episodes of A. fib/flutter since yesterday. He is currently on oral amiodarone. He is also on metoprolol and the dose has been reduced and infected was held as the patient is still requiring Santosh-Synephrine for hemodynamic support. His current Santosh- Synephrine dose is at 0.5 mg/kg/m and this could be weaned off. IV fluid maintenance is normal saline at the rate of 10 mL an hour. Objective - Vital Signs Vital signs: Vital Signs Temp 98.7 F 10/05/20 08:00 Pulse 52 L 10/05/20 08:15 Resp 32 H 10/05/20 08:00 BP 137/44 10/05/20 07:04 Pulse Ox 100 10/05/20 08:15 Intake & Output 10/04/20 10/05/20 10/05/20 18:59 06:59 18:59 Intake Total 652.004 763.292 73 Output Total 65 29 0 Balance 587.004 734.292 73 Weight 108.1 kg 108.2 kg Intake: IV 143 169 13 0.45 Saline @ KVO 110 130 10 Normal Saline Pressure 33 39 3 bag Intake, IV Titration 89.004 204.292 Amount Phenylephrine 40 mg In 89.004 204.292 Sodium Chloride 0.9% 250 ml @ 0.5 MCG/KG/MIN 17. 697 mls/hr IV .[id number] [facility] Rx#:[id number] Tube Feeding 330 300 30 Blood Product 0 Rc As-1 Unit 0 [id number] Other 90 90 30 Output: Urine 65 29 0 Other: Voiding Method Indwelling Catheter Indwelling Catheter ABP, PAP, CO, CI - Last Documented Arterial Blood Pressure 145/49 - Exam GENERAL EXAM: Intubated, sedated 54-year-old gentleman, on mechanical ventilator The patient has a Bivona tracheostomy tube in place and is off sedation. Completely unresponsive and seems to be in a comatose state. HEAD: Normocephalic. EYES: Sluggish reaction of pupils, equal size. NOSE: Clear with pink turbinates. THROAT: No erythema or exudates. Bivona tracheostomy tube in place, mucosal membranes are dry, tongue is dry, there is evidence of mucosal bleed with dried blood covering the mouth of the lips and the tongue. No active bleeding at this point in time. The stoma site was inspected. The wound has dehisced. In fact this surgical incision is quite large incision probably around 5 cm to 7 cm. The stitches have come loose and the wound is open right now. Around the stoma, there is some loose cloudiness for secretions activity relating. No evidence of any air leak at this point in time. NECK: No masses, no JVD. CHEST: No chest wall deformity. LUNGS: Equal air entry with crackles in the bilateral posterior bases. CVS: S1 and S2 normal with no audible murmur, regular rhythm. ABDOMEN: No hepatosplenomegaly, normal bowel sounds, no guarding or rigidity. The PEG tube is in a good location. SPINE: No scoliosis or deformity SKIN: No rashes CENTRAL NERVOUS SYSTEM: Patient is completely unresponsive, pupils around to the 3 mm in size, sluggishly reactive to light, no corneal reflexes, very sluggish pupillary reflex, motor functions and all 4 extremities, does not withdraw to any painful stimulation. Neurologic exam remains unchanged. Brain Stem refl exes are present. Completely unresponsive. No significant change in his neuro status since yesterday. EXTREMITIES: There is no peripheral edema. No clubbing, no cyanosis. Peripheral pulses are intact. - Labs CBC & Chem 7: 10/05/20 04:30 10/05/20 04:00 Labs: Abnormal Lab Results - Last 24 Hours (Table) 10/04/20 10/04/20 10/04/20 Range/Units 11:19 18:09 23:52 WBC (3.8-10.6) k/uL RBC (4.30-5.90) m/uL Hgb (13.0-17.5) gm/dL Hct (39.0-53.0) % RDW (11.5-15.5) % Plt Count (150-450) k/uL Neutrophils # (1.3-7.7) k/uL Lymphocytes # (1.0-4.8) k/uL ABG pH (7.35-7.45) ABG pCO2 (35-45) mmHg ABG pO2 (83-108) mmHg ABG O2 Saturation (94-97) % Sodium (137-145) mmol/L Carbon Dioxide (22-30) mmol/L BUN (9-20) mg/dL Creatinine (0.66-1.25) mg/dL Glucose (74-99) mg/dL POC Glucose (mg/dL) 149 H 164 H 162 H (75-99) mg/dL Calcium (8.4-10.2) mg/dL Phosphorus (2.5-4.5) mg/dL AST (17-59) U/L ALT (4-49) U/L Alkaline Phosphatase (38-126) U/L Total Protein (6.3-8.2) g/dL Albumin (3.5-5.0) g/dL Crossmatch 10/05/20 10/05/20 10/05/20 Range/Units 04:00 04:00 04:30 WBC 24.1 H 23.9 H (3.8-10.6) k/uL RBC 2.08 L 2.09 L (4.30-5.90) m/uL Hgb 6.6 L* 6.6 L* (13.0-17.5) gm/dL Hct 19.8 L* 19.9 L* (39.0-53.0) % RDW 17.0 H 17.1 H (11.5-15.5) % Plt Count 106 L 103 L (150-450) k/uL Neutrophils # 22.9 H (1.3-7.7) k/uL Lymphocytes # 0.5 L (1.0-4.8) k/uL ABG pH (7.35-7.45) ABG pCO2 (35-45) mmHg ABG pO2 (83-108) mmHg ABG O2 Saturation (94-97) % Sodium 133 L (137-145) mmol/L Carbon Dioxide 21 L (22-30) mmol/L BUN 135 H* (9-20) mg/dL Creatinine 3.04 H (0.66-1.25) mg/dL Glucose 118 H (74-99) mg/dL POC Glucose (mg/dL) (75-99) mg/dL Calcium 7.6 L (8.4-10.2) mg/dL Phosphorus 6.7 H (2.5-4.5) mg/dL AST 227 H (17-59) U/L ALT 265 H (4-49) U/L Alkaline Phosphatase 140 H (38-126) U/L Total Protein 4.4 L (6.3-8.2) g/dL Albumin 2.3 L (3.5-5.0) g/dL Crossmatch 10/05/20 10/05/20 Range/Units 05:19 05:25 WBC (3.8-10.6) k/uL RBC (4.30-5.90) m/uL Hgb (13.0-17.5) gm/dL Hct (39.0-53.0) % RDW (11.5-15.5) % Plt Count (150-450) k/uL Neutrophils # (1.3-7.7) k/uL Lymphocytes # (1.0-4.8) k/uL ABG pH 7.24 L (7.35-7.45) ABG pCO2 49 H (35-45) mmHg ABG pO2 129 H (83-108) mmHg ABG O2 Saturation 99.0 H (94-97) % Sodium (137-145) mmol/L Carbon Dioxide (22-30) mmol/L BUN (9-20) mg/dL Creatinine (0.66-1.25) mg/dL Glucose (74-99) mg/dL POC Glucose (mg/dL) (75-99) mg/dL Calcium (8.4-10.2) mg/dL Phosphorus (2.5-4.5) mg/dL AST (17-59) U/L ALT (4-49) U/L Alkaline Phosphatase (38-126) U/L Total Protein (6.3-8.2) g/dL Albumin (3.5-5.0) g/dL Crossmatch See Detail Microbiology - Last 24 Hours (Table) 10/02/20 12:20 Blood Culture - Preliminary Blood No Growth after 48 hours Assessment and Plan Plan: 1 Acute hypoxemic respiratory failure secondary to COVID 19 pneumonitis. Required intubation on 09/12/2020. Had undergone tracheostomy and PEG tube placement on 09/22/2020. Did receive tocilizumab and convalescent plasma, remains currently on prednisone orally 40 mg by mouth daily. Chest x-ray findings are showing diffuse but the pulmonary infiltrates, MRSA and the patient started on Zyvox. Her now, the patient remains covered with a broad-spectrum antibiotic including cefepime and Zyvox. He has grown MRSA in the sputum. Tracheostomy stoma was inspected. The wound is open and the history. The stoma itself is intact and there is no evidence of any air leak. Chest x-ray showing diffuse but the pulmonary infiltrates consistent with COVID-19 related pneumonia with highly suspected superinfection with MRSA. 2 MRSA pneumonia, clinically suspected, consider patient was started on Zyvox. a hospital-acquired/ventilator associated pneumonia. The patient has developed new onset leukocytosis in addition. Calcitonin level is mildly elevated and the patient was started on Zyvox to be a component of sepsis as the patient is epi sodically being hypotensive and currently is on Santosh-Synephrine drip. The pressors are supposed to get weaned off over the next 24-48 hours as the patient is being treated with antibiotics. IV fluids and currently at KVO. 3 unresponsive, comatose state with present brainstem reflexes and absent co rtical functions. CAT scan of the brain is essentially showing no acute abnormalities. EEG is consistent with metabolic encephalopathy without any seizure activity. Carotid Dopplers are unchanged. The patient neurologic status remains profoundly impaired. 4 non-STEMI with troponin max of 6.5, echocardiogram with moderate concentric LVH 5 enteral feeding for nutritional support through a PEG tube. The patient is receiving enteral feeding for nutritional support via Nepro 6 acute kidney injury creatinine is on the rise and the patient remains oliguric with urine output of less than 10 mL and the patient has a creatinine up to 3.0. The first on the case, contemplating by tomorrow. 7 foul smelling odor from his mouth, halitosis along with some bleeding around the tracheostomy site. CAT scan of the neck shows no acute abnormalities. Tracheostomy tube is in good location and there are no neck or pharyngeal abscesses. 8 hypernatremia, recovered 9 History of hypertension. 10 acute leukocytosis ,stable white count 11 diarrhea improved while the patient off lactulose she had a negative C. diff evaluation. 12 acute on top of chronic anemia with a drop in hemoglobin down to 6.6 without evidence of any acute bleed. This is probably ongoing phlebotomy and because of blood loss. Currently receiving a unit of packed RBC 13 recurrent episodes of atrial flutter with rapid ventricular response, currently back in a normal sinus rhythm. Plan: Keep the patient off sedation, Neurologic functions are all impaired and the patient is not showing any signs of neurologic recovery. Opening up his eyes and his blinking. Not following any commands. CAT scan of the brain was noted EEG was noted Neurologist on the case Treatment MRSA pneumonia with Zyvox 600 mg IV every 12 hours, and cefepime 1 g every 12 hours. IV Lasix 80 mg every 24 hours Continue enteral feeding for nutritional supportr Keep the patient prednisone 40 mg by mouth daily Monitor inflammatory markers Wean off pressors Since she is a 1 units in fact RBC and DDAVP was also given Proceed with a hemodialysis catheter insertion Critical condition We'll continue to follow, prognosis extremely poor. The patient has not shown any signs of reasonable recovery. His odds of recovering from xtremely low. The patient is not doing much of her progress for now. I contacted the son and I gave him a lengthy update on the condition and his progress over the past 1 week. We'll continue to follow make further recommendations as would proceed. The chest to meet the family. The bedside yesterday. I spoke to the significant other and the children and they're very much aware of the condition. There were that the patient is critically ill and his odds of recovery is slim. They are interested in dialysis if we get to the point where the patient will need hemodialysis. I think we are getting closer to the point and the patient will be asked for vascular surgery to insert a dialysis catheter for possible dialysis within next 24-48 hours. We will ask the surgeon to reevaluate the tracheostomy stoma critically care evaluation, more than 30 minutes. Time with Patient: Greater than 30
[2020-10-05] MEDS: FUROSEMIDE 10 MG/ML 10 ML VIAL IV SCH (09:18)
[2020-10-05 11:18] LABS: Glucose,Whole Blood 140 mg/dL (75-99)
--- NOTE | 2020-10-05 11:21 | P.PN ---
Progress Note - Text Progress Note Date: 10/05/20 The patient's tracheostomy site was examined at the bedside. Apparently he has a MRSA infection in his sputum. There is some breakdown of the skin at the tracheostomy site. There is some evidence of infection. The tracheostomy site was suctioned. There isto closed with sutures. The patient will have Aquacel silver applied to the trach site. He will have local wound care.
--- NOTE | 2020-10-05 12:55 | PN ---
PROGRESS NOTE He remains in sinus rhythm, sinus bradycardia. He is holding his own, but he has multiple issues. Urine output is decreased. Creatinine is going up. Hemoglobin is less than 7, received blood transfusion. I am recommending that we decrease amiodarone to 100 mg daily and also Lopressor 12.5 mg daily. Prognosis remains poor and I would recommend comfort care for this gentleman who is doing progressively worse with multiple systems. We will continue to see him as needed. MMODL / IJN: [id number] /
[2020-10-05] MEDS: CALCIUM ACETATE 667 MG TAB PO SCH ×2 (13:09→18:14)
--- NOTE | 2020-10-05 13:26 | P.PN ---
Subjective Shouldn't is admitted for respiratory failure secondary to Covid 19 10/04/2020 Patient has a extensive prolonged hospitalization for more than 30 days patient presently has tracheostomy and PEG tube in place patient has secondary bacterial pneumonia with the staph aureus and patient is on linezolid did patient has very minimal or no urine output continues to have renal dysfunction and worsening creatinine nephrology is following the patient and patient was started on Lasix. She and is presently on ventilatory support assist-control ventilation set up respiratory 22 titer volume 420 people 13 FiO2 of 70% patient has been off sedation in spite of which patient is unresponsive and comatose brainstem reflexes are present no particle function EEG showed diffuse encephalopathy. Computed tomography scan that was done yesterday showed chronic microvascular ischemic changes neurology is following the patient as well. Patient chest x- ray still showing pulmonary infiltrates. he is on amiodarone for atrial flutter/fibrillation. Patient was on IV heparin which was now discontinued 10/05/2020 Patient's overall clinical condition is much worse today patient doesn't have any new significant neurological improvement. Patient's hemoglobin did drop receiving 11 unit of PRBC transfusion presently around the 6.5 there is no acute GI bleed or any other source of acute bleed. The patient remains on no steroids. Patient tracheostomy site appears to be dye history because of which the surgery evaluated the patient back as Selsun Blue is being applied. Patient has MRSA in the sputum patient is presently on Zyvox as well as cefepime. Chest x-ray showing worsening infiltrates. Creatinine did go up to 3 with highly elevated BNP patient remains on Lasix at this time patient will undergo dialysis catheter placement tomorrow, patient does have a fecal management system receiving tube feeding through NG tube white blood cell count continued to be high but improved to 23,000. Patient is presently sinus rhythm remains on amiodarone patient is on vasopressin at 0.5 mg/kg/m which is being weaned off patient remains on ventilator support with tidal volume of 420 people 13 FiO2 60%. Independent Living Specialist had an extensive discussion with the family family wanted to continue care. Review of systems: Unable to obtain due to his clinical condition All inpatient medications were reviewed and appropriate changes in these medications as dictated in the interval history and assessment and plan. Objective - Vital Signs Vital signs: Vital Signs Temp 98.5 F 10/05/20 09:19 Pulse 53 L 10/05/20 10:00 Resp 32 H 10/05/20 10:00 BP 149/49 10/05/20 09:19 Pulse Ox 98 10/05/20 10:00 Intake & Output 10/04/20 10/05/20 10/05/20 18:59 06:59 18:59 Intake Total 652.004 763.292 955.653 Output Total 65 29 30 Balance 587.004 734.292 925.653 Weight 108.1 kg 108.2 kg Intake: IV 143 169 452 0.45 Saline @ KVO 110 130 40 Cefepime 1 gm In Sodium 50 Chloride 0.9% 50 ml @ 12. 5 mls/hr IVPB Q12HR [facility] Rx#:[id number] Desmopressin Acetate 24 50 mcg In Sodium Chloride 0. 9% 50 ml @ 200 mls/hr IVPB ONCE ONE Rx#: [id number] Linezolid 600 mg In 300 Dextrose/Water 1 300ml. bag @ 150 mls/hr IVPB Q12HR [facility] Rx#:[id number] Normal Saline Pressure 33 39 12 bag Intake, IV Titration 89.004 204.292 43.653 Amount Phenylephrine 40 mg In 89.004 204.292 43.653 Sodium Chloride 0.9% 250 ml @ 0.5 MCG/KG/MIN 17. 697 mls/hr IV .[id number] [facility] Rx#:[id number] Tube Feeding 330 300 120 Blood Product 0 310 Rc As-1 Unit 0 310 [id number] Other 90 90 30 Output: Urine 65 29 30 Other: Voiding Method Indwelling Catheter Indwelling Catheter Indwelling Catheter ABP, PAP, CO, CI - Last Documented Arterial Blood Pressure 143/46 - Exam PHYSICAL EXAMINATION: GENERAL: patient has a tracheostomy and ventilatory support patient has a gaping hole around the tracheostomy site . HEENT: She does have brainstem reflexes No conjunctival pallor. Normocephalic, atraumatic. No pharyngeal erythema. No thyromegaly. CARDIOVASCULAR: S1 and S2 present. No murmurs, rubs, or gallops. PULMONARY: Bilateral crackles ABDOMEN: Soft, nontender, nondistended, normoactive bowel sounds. No palpable organomegaly. PEG tube is in place MUSCULOSKELETAL: No joint swelling or deformity. EXTREMITIES: No cyanosis, clubbing, or pedal edema. NEUROLOGICAL: Patient is is not moving any of his limbs SKIN: No rashes. - Labs CBC & Chem 7: 10/05/20 04:30 10/05/20 04:00 Labs: Abnormal Lab Results - Last 24 Hours (Table) 10/04/20 10/04/20 10/05/20 Range/Units 18:09 23:52 04:00 WBC (3.8-10.6) k/uL RBC (4.30-5.90) m/uL Hgb (13.0-17.5) gm/dL Hct (39.0-53.0) % RDW (11.5-15.5) % Plt Count (150-450) k/uL Neutrophils # (1.3-7.7) k/uL Lymphocytes # (1.0-4.8) k/uL ABG pH (7.35-7.45) ABG pCO2 (35-45) mmHg ABG pO2 (83-108) mmHg ABG O2 Saturation (94-97) % Sodium 133 L (137-145) mmol/L Carbon Dioxide 21 L (22-30) mmol/L BUN 135 H* (9-20) mg/dL Creatinine 3.04 H (0.66-1.25) mg/dL Glucose 118 H (74-99) mg/dL POC Glucose (mg/dL) 164 H 162 H (75-99) mg/dL Calcium 7.6 L (8.4-10.2) mg/dL Phosphorus 6.7 H (2.5-4.5) mg/dL AST 227 H (17-59) U/L ALT 265 H (4-49) U/L Alkaline Phosphatase 140 H (38-126) U/L Total Protein 4.4 L (6.3-8.2) g/dL Albumin 2.3 L (3.5-5.0) g/dL Crossmatch 10/05/20 10/05/20 10/05/20 Range/Units 04:00 04:30 05:19 WBC 24.1 H 23.9 H (3.8-10.6) k/uL RBC 2.08 L 2.09 L (4.30-5.90) m/uL Hgb 6.6 L* 6.6 L* (13.0-17.5) gm/dL Hct 19.8 L* 19.9 L* (39.0-53.0) % RDW 17.0 H 17.1 H (11.5-15.5) % Plt Count 106 L 103 L (150-450) k/uL Neutrophils # 22.9 H (1.3-7.7) k/uL Lymphocytes # 0.5 L (1.0-4.8) k/uL ABG pH (7.35-7.45) ABG pCO2 (35-45) mmHg ABG pO2 (83-108) mmHg ABG O2 Saturation (94-97) % Sodium (137-145) mmol/L Carbon Dioxide (22-30) mmol/L BUN (9-20) mg/dL Creatinine (0.66-1.25) mg/dL Glucose (74-99) mg/dL POC Glucose (mg/dL) (75-99) mg/dL Calcium (8.4-10.2) mg/dL Phosphorus (2.5-4.5) mg/dL AST (17-59) U/L ALT (4-49) U/L Alkaline Phosphatase (38-126) U/L Total Protein (6.3-8.2) g/dL Albumin (3.5-5.0) g/dL Crossmatch See Detail 10/05/20 10/05/20 Range/Units 05:25 11:17 WBC (3.8-10.6) k/uL RBC (4.30-5.90) m/uL Hgb (13.0-17.5) gm/dL Hct (39.0-53.0) % RDW (11.5-15.5) % Plt Count (150-450) k/uL Neutrophils # (1.3-7.7) k/uL Lymphocytes # (1.0-4.8) k/uL ABG pH 7.24 L (7.35-7.45) ABG pCO2 49 H (35-45) mmHg ABG pO2 129 H (83-108) mmHg ABG O2 Saturation 99.0 H (94-97) % Sodium (137-145) mmol/L Carbon Dioxide (22-30) mmol/L BUN (9-20) mg/dL Creatinine (0.66-1.25) mg/dL Glucose (74-99) mg/dL POC Glucose (mg/dL) 140 H (75-99) mg/dL Calcium (8.4-10.2) mg/dL Phosphorus (2.5-4.5) mg/dL AST (17-59) U/L ALT (4-49) U/L Alkaline Phosphatase (38-126) U/L Total Protein (6.3-8.2) g/dL Albumin (3.5-5.0) g/dL Crossmatch Microbiology - Last 24 Hours (Table) 10/02/20 12:20 Blood Culture - Preliminary Blood No Growth after 48 hours Assessment and Plan Plan: -Acute hypoxic respiratory failure secondary to Covid 19 pneumonia, extensive interstitial pneumonia on mechanical ventilation secondary bacterial bronchitis and pneumonia with MRSA for which patient is on linezolid. Patient to remains on ventilatory support, nutritional support via PEG tube -Comatose state with absent or cortical functions secondary to severe metabolic encephalopathy patient doesn't have any seizure activity -Status post PEG tube and tracheostomy placement -Acute kidney injury secondary to acute sugar necrosis worsening the creatinine patient remains on IV Lasix hemodialysis catheter tomorrow -Sputum growing MRSA, present is presently on linezolid and cefepime -Atrial fibrillation with fast ventricular rate: Patient is presently rate controlled on amiodarone -Change in mental status, acute metabolic encephalopathy -Drop in hemoglobin without any clinical evidence of acute blood loss patient will be transfused 1 unit of PRBC. Probably secondary to frequent blood clot across -Hypertension -Elevated troponin possibly secondary to type II acute myocardial infarction secondary to hypoxemia and COVID-19 -GI prophylaxis with Pepcid -DVT prophylaxis with Lovenox -Full code Overall prognosis is extremely poor
[2020-10-05 13:36] LABS: Anisocytosis Slight; HCT 22.9 % (39.0-53.0); HGB 7.6 gm/dL (13.0-17.5); MCH 31.7 pg (25.0-35.0); MCHC 33.3 g/dL (31.0-37.0); Mean Platelet Volume 9.7; RBC 2.41 m/uL (4.30-5.90); RDW 16.7 % (11.5-15.5); WBC 17.9 k/uL (3.8-10.6)
[2020-10-05 15:06] LABS: Platelet Count 85 k/uL (150-450)
[2020-10-05 16:55] LABS: Potassium 5.5 mmol/L (3.5-5.1)
[2020-10-05 16:56] LABS: Calcium 7.6 mg/dL (8.4-10.2)
[2020-10-05 17:32] LABS: Glucose,Whole Blood 154 mg/dL (75-99)
[2020-10-05] MEDS ORDERED: SODIUM BICARB 8.4% 50 ML SYR (1 MEQ/ML) IV ONE (17:42)
[2020-10-05] MEDS ORDERED: DEXTROSE 50% SYRINGE 50 ML IVP ONE (17:42)
[2020-10-05] MEDS ORDERED: INSULIN REGULAR 100 UNIT/ML VIAL (IV) IV ONE (17:42)
[2020-10-06 00:05] LABS: Glucose,Whole Blood 142 mg/dL (75-99)
[2020-10-06 04:21] LABS: ABG Base Excess -6.4 mmol/L; ABG HCO3 21 mmol/L (21-25); ABG Oxygen Saturation 96.2 % (94-97); ABG PCO2 49 mmHg (35-45); ABG PH 7.24 (7.35-7.45); ABG PO2 82 mmHg (83-108); ABG TCO2 23 mmol/L (19-24)
[2020-10-06 04:44] LABS: Anisocytosis Slight; Basophils % (A) 0 %; Eosinophils % (A) 0 %; HCT 22.5 % (39.0-53.0); HGB 7.5 gm/dL (13.0-17.5); Lymphocytes # (A) 0.3 k/uL (1.0-4.8); Lymphocytes % (A) 2 %; MCH 31.3 pg (25.0-35.0); MCHC 33.3 g/dL (31.0-37.0); Mean Platelet Volume 10.3; Monocytes # (A) 0.5 k/uL (0-1.0); Monocytes % (A) 3 %; Neutrophils # (A) 16.2 k/uL (1.3-7.7); Neutrophils % (A) 95 %; Platelet Count 85 k/uL (150-450); RBC 2.39 m/uL (4.30-5.90); RDW 16.5 % (11.5-15.5); WBC 17.1 k/uL (3.8-10.6)
[2020-10-06 05:05] LABS: Albumin 2.2 g/dL (3.5-5.0); Calcium 7.4 mg/dL (8.4-10.2); Potassium 5.2 mmol/L (3.5-5.1); Total Bilirubin 0.7 mg/dL (0.2-1.3); Total Protein 4.4 g/dL (6.3-8.2)
[2020-10-06 05:37] LABS: Allen Test Performed? no
[2020-10-06 05:59] LABS: Glucose,Whole Blood 97 mg/dL (75-99)
[2020-10-06] MEDS: INSULIN ASPART (NovoLOG) 100 UNIT/ML VIAL SQ SCH ×3 (06:06→19:05)
[2020-10-06] MEDS: ALBUTEROL HFA INHALER INHALATION SCH ×4 (07:15→19:06)
--- NOTE | 2020-10-06 07:17 | XR ---
EXAMINATION TYPE: XR chest 1V portable DATE OF EXAM: 10/06/2020 COMPARISON: 10/05/2020 HISTORY: Cough TECHNIQUE: Single frontal view of the chest is obtained. FINDINGS: Tracheostomy noted with bilateral multifocal airspace disease stable. Left-sided PICC line stable. Arthropathy of the shoulders. Small bilateral effusions. IMPRESSION: Stable bilateral airspace disease.
[2020-10-06] MEDS: CALCIUM ACETATE 667 MG TAB PO SCH ×3 (08:36→18:40)
--- NOTE | 2020-10-06 09:52 | P.PN ---
Subjective Patient is seen in follow-up for acute kidney injury. He is status post tracheostomy and PEG tube placement. Remains unresponsive. Patient tested positive for coronavirus. Also on antibiotics for MRSA pneumonia. Remains oliguric. Off vasopressors. Received a unit of blood October 05. Hemoglobin 7.5 today. Vital signs: Stable. HEENT: Tracheostomy noted. EXTREMITITES: 1+ edema. Objective - Vital Signs Vital signs: Vital Signs Temp 97.2 F L 10/05/20 16:00 Pulse 68 10/06/20 06:00 Resp 34 H 10/06/20 06:00 BP 149/49 10/05/20 09:19 Pulse Ox 97 10/06/20 06:00 Intake & Output 10/05/20 10/06/20 10/06/20 18:59 06:59 18:59 Intake Total 1186.678 519.0 Output Total 68 80 Balance 1118.678 439.0 Weight 109.9 kg Intake: IV 543 519.0 0.45 Saline @ KVO 110 130 Cefepime 1 gm In Sodium 50 50.0 Chloride 0.9% 50 ml @ 12. 5 mls/hr IVPB Q12HR [facility] Rx#:[id number] Desmopressin Acetate 24 50 mcg In Sodium Chloride 0. 9% 50 ml @ 200 mls/hr IVPB ONCE ONE Rx#: [id number] Linezolid 600 mg In 300 300 Dextrose/Water 1 300ml. bag @ 150 mls/hr IVPB Q12HR [facility] Rx#:[id number] Normal Saline Pressure 33 39 bag Intake, IV Titration 93.678 Amount Phenylephrine 40 mg In 93.678 Sodium Chloride 0.9% 250 ml @ 0.5 MCG/KG/MIN 17. 697 mls/hr IV .[id number] [facility] Rx#:[id number] Tube Feeding 180 0 Blood Product 310 Rc As-1 Unit 310 [id number] Other 60 Output: Urine 68 80 Other: Voiding Method Indwelling Catheter Indwelling Catheter ABP, PAP, CO, CI - Last Documented Arterial Blood Pressure 159/52 - Labs CBC & Chem 7: 10/06/20 04:30 10/06/20 04:30 Labs: Abnormal Lab Results - Last 24 Hours (Table) 10/05/20 10/05/20 10/05/20 Range/Units 11:17 13:10 16:25 WBC 17.9 H (3.8-10.6) k/uL RBC 2.41 L (4.30-5.90) m/uL Hgb 7.6 L (13.0-17.5) gm/dL Hct 22.9 L (39.0-53.0) % RDW 16.7 H (11.5-15.5) % Plt Count 85 L (150-450) k/uL Neutrophils # (1.3-7.7) k/uL Lymphocytes # (1.0-4.8) k/uL ABG pH (7.35-7.45) ABG pCO2 (35-45) mmHg ABG pO2 (83-108) mmHg Sodium 131 L (137-145) mmol/L Potassium 5.5 H (3.5-5.1) mmol/L Carbon Dioxide 20 L (22-30) mmol/L BUN 144 H* (9-20) mg/dL Creatinine 3.30 H (0.66-1.25) mg/dL Glucose 123 H (74-99) mg/dL POC Glucose (mg/dL) 140 H (75-99) mg/dL Calcium 7.6 L (8.4-10.2) mg/dL AST (17-59) U/L ALT (4-49) U/L Alkaline Phosphatase (38-126) U/L Total Protein (6.3-8.2) g/dL Albumin (3.5-5.0) g/dL 10/05/20 10/05/20 10/06/20 Range/Units 17:31 23:52 00:03 WBC (3.8-10.6) k/uL RBC (4.30-5.90) m/uL Hgb (13.0-17.5) gm/dL Hct (39.0-53.0) % RDW (11.5-15.5) % Plt Count (150-450) k/uL Neutrophils # (1.3-7.7) k/uL Lymphocytes # (1.0-4.8) k/uL ABG pH (7.35-7.45) ABG pCO2 (35-45) mmHg ABG pO2 (83-108) mmHg Sodium (137-145) mmol/L Potassium 5.3 H (3.5-5.1) mmol/L Carbon Dioxide (22-30) mmol/L BUN (9-20) mg/dL Creatinine (0.66-1.25) mg/dL Glucose (74-99) mg/dL POC Glucose (mg/dL) 154 H 142 H (75-99) mg/dL Calcium (8.4-10.2) mg/dL AST (17-59) U/L ALT (4-49) U/L Alkaline Phosphatase (38-126) U/L Total Protein (6.3-8.2) g/dL Albumin (3.5-5.0) g/dL 10/06/20 10/06/20 10/06/20 Range/Units 04:30 04:30 04:31 WBC 17.1 H (3.8-10.6) k/uL RBC 2.39 L (4.30-5.90) m/uL Hgb 7.5 L (13.0-17.5) gm/dL Hct 22.5 L (39.0-53.0) % RDW 16.5 H (11.5-15.5) % Plt Count 85 L (150-450) k/uL Neutrophils # 16.2 H (1.3-7.7) k/uL Lymphocytes # 0.3 L (1.0-4.8) k/uL ABG pH 7.24 L (7.35-7.45) ABG pCO2 49 H (35-45) mmHg ABG pO2 82 L (83-108) mmHg Sodium 133 L (137-145) mmol/L Potassium 5.2 H (3.5-5.1) mmol/L Carbon Dioxide 21 L (22-30) mmol/L BUN 149 H* (9-20) mg/dL Creatinine 3.84 H (0.66-1.25) mg/dL Glucose (74-99) mg/dL POC Glucose (mg/dL) (75-99) mg/dL Calcium 7.4 L (8.4-10.2) mg/dL AST 211 H (17-59) U/L ALT 266 H (4-49) U/L Alkaline Phosphatase 128 H (38-126) U/L Total Protein 4.4 L (6.3-8.2) g/dL Albumin 2.2 L (3.5-5.0) g/dL Microbiology - Last 24 Hours (Table) 10/02/20 12:20 Blood Culture - Preliminary Blood No Growth after 72 hours Assessment and Plan Plan: Assessment: 1. Acute kidney injury secondary to ATN secondary to septic shock. Creatinine 3.84 today. Oliguric. Diuretic unresponsive. Baseline creatinine near 1. No hydronephrosis and kidney ultrasound. 2. MRSA pneumonia maintained on antibiotics. 3. Acute hypoxic respiratory failure secondary to quit 19 pneumonitis. Status post tracheostomy and PEG tube placement this admission. 4. Hypernatremia from lack of oral water intake. Resolved. 5. A. fib with RVR. On oral amiodarone. 6. Shock maintained on Santosh-Synephrine. 7. Acute blood loss anemia. Status post incision October 05. Hemoglobin 7.5 today. Also received IV DDAVP this admission. 8. Hyperphosphatemia secondary to acute kidney injury. Maintained on PhosLo. 9. Volume overload. No improvement in urine output with IV Lasix Plan: Due to oliguria, volume overload and worsening renal function, initiated renal replacement therapy. Vascular surgery consulted for dialysis catheter placement. Plan for first and if hemodialysis today and second treatment tomorrow. Continue to monitor renal function and urine output.
[2020-10-06] MEDS: LINEZOLID 600 MG in DEXTROSE/WATER 1 300ML.BAG IVPB SCH ×2 (09:54→20:42)
[2020-10-06] MEDS: ATORVASTATIN 80 MG TAB PO SCH (09:55)
[2020-10-06] MEDS: FAMOTIDINE 20 MG TAB PO SCH (09:55)
[2020-10-06] MEDS: ASPIRIN 81 MG PO SCH (09:55)
[2020-10-06] MEDS: ASCORBIC ACID 500 MG TAB PO SCH ×2 (09:55→20:42)
[2020-10-06] MEDS: CHLORHEXIDINE GLUCONATE 15 ML CUP MUCOUS MEM SCH ×2 (09:55→20:42)
[2020-10-06] MEDS: predniSONE 20 MG TAB PO SCH (09:55)
[2020-10-06] MEDS: CHOLECALCIFEROL 25 MCG (1000 IU) TABLET PO SCH (09:55)
[2020-10-06] MEDS: CEFEPIME 1 GM in SODIUM CHLORIDE 0.9% 50 ML IVPB SCH ×2 (09:55→20:42)
[2020-10-06] MEDS: METOPROLOL TARTRATE 12.5 MG TAB PO SCH (09:55)
[2020-10-06] MEDS: FUROSEMIDE 10 MG/ML 10 ML VIAL IV SCH (09:55)
[2020-10-06] MEDS: AMIODARONE 100 MG TAB PO SCH ×2 (09:56→20:42)
--- NOTE | 2020-10-06 10:23 | P.GSCN ---
History of Present Illness Consult date: 10/06/20 Reason for Consult: Acute kidney injury, need for temporary hemodialysis catheter Requesting physician: Tasha Chin History of present illness: This is a 54-year-old white male patient who was admitted to the hospital a little over a month ago with complaints of shortness of breath. He is Covid positive as well as diagnosed with MRSA pneumonia, he was admitted to the ICU, he has subsequently undergone a PEG and tracheostomy and remains on mechanical ventilation. He has acute kidney injury with a urine output of 5-10 mL per hour and vascular surgery has been consulted for a temporary hemodialysis catheter placement for hemodialysis treatment later today. The patient has been unresponsive and comatose off of sedation. Review of Systems ROS unobtainable: due to endotracheal tube, due to mental status Past Medical History Past Medical History: GERD/Reflux, Hypertension Additional Past Medical History / Comment(s): Pt states he tested covid + a week ago at [facility]. Other hx: Gout History of Any Multi-Drug Resistant Organisms: MRSA Year Discovered:: 09/29/20 MDRO Source:: MRSA SPUTUM Past Surgical History: No Surgical Hx Reported Additional Past Surgical History / Comment(s): Colonoscopy Past Anesthesia/Blood Transfusion Reactions: No Reported Reaction Smoking Status: Former smoker - Past Family History Mother Family Medical History: No Reported History Additional Family Medical History / Comment(s): Mother is healthy Father Family Medical History: Cancer Additional Family Medical History / Comment(s): Kidney and liver cancer. Medications and Allergies Home Medications Medication Instructions Recorded Confirmed Type Albuterol Inhaler [Ventolin Hfa 2 puff INHALATION RT-QID PRN 09/02/20 09/02/20 History Inhaler] Azithromycin [Zithromax Z-pack (6 See Taper PO DIRECTED 09/02/20 09/02/20 History tabs)] Dexamethasone [Decadron] 3 mg PO BID 09/02/20 09/02/20 History Promethazine 6.25MG/5Ml [Phenergan 12.5 mg PO QID PRN 09/02/20 09/02/20 History Syrup] allopurinoL [Zyloprim] 300 mg PO DAILY 09/02/20 09/02/20 History amLODIPine [Norvasc] 10 mg PO DAILY 09/02/20 09/02/20 History Allergies Allergy/AdvReac Type Severity Reaction Status Date / Time No Known Allergies Allergy Verified 09/02/20 22:38 Surgical - Exam Vital Signs Temp Pulse Resp BP Pulse Ox 98.1 F 98 40 H 144/87 86 L 09/02/20 21:36 09/02/20 21:36 09/02/20 21:36 09/02/20 21:36 09/02/20 21:36 General appearance: The patient is nonresponsive, tracheostomy with mechanical ventilation. HET: Head is normocephalic and atraumatic. Neck: Supple without lymphadenopathy. Trachea midline. Heart: S1 S2. Regular rate and rhythm. Lungs: mechanical ventilation Neurological: Awake, Nonresponsive. Results - Labs 10/06/20 04:30 10/06/20 04:30 Abnormal Lab Results - Last 24 Hours (Table) 10/05/20 10/05/20 10/05/20 Range/Units 11:17 13:10 16:25 WBC 17.9 H (3.8-10.6) k/uL RBC 2.41 L (4.30-5.90) m/uL Hgb 7.6 L (13.0-17.5) gm/dL Hct 22.9 L (39.0-53.0) % RDW 16.7 H (11.5-15.5) % Plt Count 85 L (150-450) k/uL Neutrophils # (1.3-7.7) k/uL Lymphocytes # (1.0-4.8) k/uL ABG pH (7.35-7.45) ABG pCO2 (35-45) mmHg ABG pO2 (83-108) mmHg Sodium 131 L (137-145) mmol/L Potassium 5.5 H (3.5-5.1) mmol/L Carbon Dioxide 20 L (22-30) mmol/L BUN 144 H* (9-20) mg/dL Creatinine 3.30 H (0.66-1.25) mg/dL Glucose 123 H (74-99) mg/dL POC Glucose (mg/dL) 140 H (75-99) mg/dL Calcium 7.6 L (8.4-10.2) mg/dL AST (17-59) U/L ALT (4-49) U/L Alkaline Phosphatase (38-126) U/L Total Protein (6.3-8.2) g/dL Albumin (3.5-5.0) g/dL 10/05/20 10/05/20 10/06/20 Range/Units 17:31 23:52 00:03 WBC (3.8-10.6) k/uL RBC (4.30-5.90) m/uL Hgb (13.0-17.5) gm/dL Hct (39.0-53.0) % RDW (11.5-15.5) % Plt Count (150-450) k/uL Neutrophils # (1.3-7.7) k/uL Lymphocytes # (1.0-4.8) k/uL ABG pH (7.35-7.45) ABG pCO2 (35-45) mmHg ABG pO2 (83-108) mmHg Sodium (137-145) mmol/L Potassium 5.3 H (3.5-5.1) mmol/L Carbon Dioxide (22-30) mmol/L BUN (9-20) mg/dL Creatinine (0.66-1.25) mg/dL Glucose (74-99) mg/dL POC Glucose (mg/dL) 154 H 142 H (75-99) mg/dL Calcium (8.4-10.2) mg/dL AST (17-59) U/L ALT (4-49) U/L Alkaline Phosphatase (38-126) U/L Total Protein (6.3-8.2) g/dL Albumin (3.5-5.0) g/dL 10/06/20 10/06/20 10/06/20 Range/Units 04:30 04:30 04:31 WBC 17.1 H (3.8-10.6) k/uL RBC 2.39 L (4.30-5.90) m/uL Hgb 7.5 L (13.0-17.5) gm/dL Hct 22.5 L (39.0-53.0) % RDW 16.5 H (11.5-15.5) % Plt Count 85 L (150-450) k/uL Neutrophils # 16.2 H (1.3-7.7) k/uL Lymphocytes # 0.3 L (1.0-4.8) k/uL ABG pH 7.24 L (7.35-7.45) ABG pCO2 49 H (35-45) mmHg ABG pO2 82 L (83-108) mmHg Sodium 133 L (137-145) mmol/L Potassium 5.2 H (3.5-5.1) mmol/L Carbon Dioxide 21 L (22-30) mmol/L BUN 149 H* (9-20) mg/dL Creatinine 3.84 H (0.66-1.25) mg/dL Glucose (74-99) mg/dL POC Glucose (mg/dL) (75-99) mg/dL Calcium 7.4 L (8.4-10.2) mg/dL AST 211 H (17-59) U/L ALT 266 H (4-49) U/L Alkaline Phosphatase 128 H (38-126) U/L Total Protein 4.4 L (6.3-8.2) g/dL Albumin 2.2 L (3.5-5.0) g/dL Microbiology - Last 24 Hours (Table) 10/02/20 12:20 Blood Culture - Preliminary Blood No Growth after 72 hours Diabetes panel 10/05/20 10/06/20 10/06/20 Range/Units 16:25 00:03 04:30 Sodium 131 L 133 L (137-145) mmol/L Potassium 5.5 H 5.3 H 5.2 H (3.5-5.1) mmol/L Chloride 101 100 (98-107) mmol/L Carbon Dioxide 20 L 21 L (22-30) mmol/L BUN 144 H* 149 H* (9-20) mg/dL Creatinine 3.30 H 3.84 H (0.66-1.25) mg/dL Glucose 123 H 90 (74-99) mg/dL Calcium 7.6 L 7.4 L (8.4-10.2) mg/dL AST 211 H (17-59) U/L ALT 266 H (4-49) U/L Alkaline Phosphatase 128 H (38-126) U/L Total Protein 4.4 L (6.3-8.2) g/dL Albumin 2.2 L (3.5-5.0) g/dL Calcium panel 10/05/20 10/06/20 Range/Units 16:25 04:30 Calcium 7.6 L 7.4 L (8.4-10.2) mg/dL Albumin 2.2 L (3.5-5.0) g/dL Pituitary panel 10/05/20 10/06/20 10/06/20 Range/Units 16:25 00:03 04:30 Sodium 131 L 133 L (137-145) mmol/L Potassium 5.5 H 5.3 H 5.2 H (3.5-5.1) mmol/L Chloride 101 100 (98-107) mmol/L Carbon Dioxide 20 L 21 L (22-30) mmol/L BUN 144 H* 149 H* (9-20) mg/dL Creatinine 3.30 H 3.84 H (0.66-1.25) mg/dL Glucose 123 H 90 (74-99) mg/dL Calcium 7.6 L 7.4 L (8.4-10.2) mg/dL Adrenal panel 10/05/20 10/06/20 10/06/20 Range/Units 16:25 00:03 04:30 Sodium 131 L 133 L (137-145) mmol/L Potassium 5.5 H 5.3 H 5.2 H (3.5-5.1) mmol/L Chloride 101 100 (98-107) mmol/L Carbon Dioxide 20 L 21 L (22-30) mmol/L BUN 144 H* 149 H* (9-20) mg/dL Creatinine 3.30 H 3.84 H (0.66-1.25) mg/dL Glucose 123 H 90 (74-99) mg/dL Calcium 7.6 L 7.4 L (8.4-10.2) mg/dL Total Bilirubin 0.7 (0.2-1.3) mg/dL AST 211 H (17-59) U/L ALT 266 H (4-49) U/L Alkaline Phosphatase 128 H (38-126) U/L Total Protein 4.4 L (6.3-8.2) g/dL Albumin 2.2 L (3.5-5.0) g/dL - Imaging Additional studies: CT brain: Impression states hypodensity in the parietal lobe bilaterally consistent with chronic microvascular ischemia that is unchanged compared to recent exam. Mastoiditis. Carotid ultrasound: Impression states suboptimal study without significant plaque or stenosis in the carotid bulb level bilaterally. Assessment and Plan Assessment: 1. Acute kidney injury 2. Altered mental status 3. Coronavirus 4. MRSA pneumonia Plan: 1. Plan for temporary hemodialysis catheter placement today 2. Continue ICU medical management 3. Hemodialysis per recommendations from nephrology Thank you for this consultation we will continue to follow. The impression and plan of care has been dictated as directed. I performed a history and examination of this patient, discussed the same with the dictator. I agree with the dictator's note ,documented as a scribe. Any additional findings or plans will be noted.
--- NOTE | 2020-10-06 10:44 | P.PN ---
Subjective Progress Note Date: 10/06/20 Principal diagnosis: Acute hypoxic respiratory failure secondary to COVID-19 pneumonia and ARDS. 54-year-old white male patient who is an ex smoker, carries [id number] smoking history quit smoking 1 year ago in May, history of hypertension and gout who sees Dr. Contreras, presented to the emergency department on 08/02/2020 with complaints of worsening shortness of breath, cough, and patient was diagnosed with Covid 19 one week ago, was tested at [facility] per Dr. Contreras's order. 2 weeks ago he had symptoms of flulike illness, sore throat, shortness of breath, weakness, muscle aches which progressively became worse, and patient developed worsening shortness of breath and had difficulty breathing and ambulating at home. He was placed on Decadron [address] Contreras and he has 1-1/2 days worth left of it. Chest x-ray in the emergency department showed bilateral interstitial pneumonia. White blood cell count was 33.1, d-dimer was greater than 35.2, CO2 is 16, the rest of electrolytes were unremarkable, B1 is 35 creatinine is 1.04, plasma lactic acid is 4.5, patient was given IV fluids and lactic acid came down to 1.8, total bilirubin was 1.6, AST is 107, ALT is 48, alkaline phosphatase is 114, LDH is 5924, first troponin was 4.190, and the second one went up to 6.960. CRP is 180.3, pro-calcitonin level is 0.33, urinalysis showed 1+ protein, but no definite sign of infection, pulse ox is 86 on room air, patient has significant shortness of breath, and was placed on BiPAP support, currently with pressures of 12/6, and FiO2 of 100% on which he remains this morning, he is afebrile, hemodynamically he is stable, she was started on IV Decadron, we'll start him on intermediate dose of Lovenox 50 mg every 12 hours, CTA chest shows no evidence of pulmonary embolism, and extensive pulmonary infiltrates that are mostly interstitial consistent with severe interstitial pneumonia. Progress note dated 09/04/2020. 54-year-old male, admitted with a diagnosis of COVID 19 pneumonitis. Currently, he is on BiPAP at 12/6 and 90%. FiO2 will be dropped down to 80%. In addition, he is getting saline at 75 mL an hour. The patient's doing better today. He states that he feels better. He still short of breath with activity. I did tell him today to make sure he moves around in bed when he is laying in bed. White count 29.3, hemoglobin 14.6, hematocrit 42.7, platelet count 140,000. D- dimer greater than 34.10. Sodium 136, potassium 5.1, chlorides 105, CO2 25, anion gap 6, BUN 39, creatinine 0.9. LDH is 3965. C-reactive protein 143. Chest x-ray shows a worsening pattern of bilateral airspace disease. Progress note dated 09/05/2020. 54-year-old male, admitted with a diagnosis of COVID 19 pneumonitis. He remains on BiPAP with an FiO2 of 80%. Settings included an IPAP 12, EPAP 6. The patient states that he feels a bit better. He is getting saline at 75 mL an hour. He feels like he is breathing is improved. He does know to move about in bed. No new laboratory data today. His most recent chest x-ray was from yesterday and was reviewed. The patient's on appropriate medications. Progress note dated 09/06/2020. 54-year-old male, seen again today. The patient is on BiPAP, settings of IPAP 12, EPAP 6, and 90%. He is also getting saline at 75 mL an hour. Was admitted with a diagnosis of acute hypoxemic respiratory failure secondary to COVID 19 pneumonia. The patient feels about the same. No better or no worse. He will have a chest x-ray tomorrow. Labs are reviewed. White count 19.3, hemoglobin 15, hematocrit 43.9, and platelet count 92,000. Sodium 135, potassium 4.9, chlorides 109, CO2 20, anion gap 6, BUN 34, and creatinine 0.92. There is no recent chest x-ray to review. The patient is seen today 09/07/2020 in follow-up on the selective care unit. He is currently resting comfortably in bed. States he is doing a little better today compared to yesterday. He is still requiring BiPAP support 12/6 and 100% FiO2. Chest x-ray reveals stable bilateral lung infiltrates. Blood glucose 163. He remains on bronchodilators, vitamin supplements, dexamethasone, Lovenox. 0.9 normal saline at 75 ML's per hour. On 09/08/2020, the patient is being seen in follow-up on the [facility] units. The patient is a 54-year-old male patient with Covid 19 related pneumonia and the patient has diffuse stable by the pulmonary infiltrates. The patient remains on Decadron. The patient is also on Lovenox 40 mg subcu every 12 hours. The patient is also requiring BiPAP for respiratory support at a pressure of 12/6 cm of water and FiO2 of 100%. The patient is able to generate a tidal volume of 800 mL of the respiratory rate of 24 and a minute ventilation of 23 L. The patient Has elevated inflammatory markers and the last time the markers were checked were on 09/04/2020 with an LDH of 3965 and a CRP of 142. Levels will need to be rechecked. The d-dimer was above 34. The LDH level remains elevated at 3911. D-dimer is 24.6. The patient is also on IV fluids with normal saline at the rate of 75 mL an hour. The patient is on Decadron 6 because IV every 24 hours. The patient is also on Lovenox 40 mg subcu every 12 hours. His current BMI 31.5. On 09/09/2020, the patient is being seen for a follow-up. The patient continues to be on a BiPAP at a pressure of 12/6 cm of water with an FiO2 of 100%. The patient is awake and he requires assistance to be moved around. His tidal volume is in the order of 800 mL which is comparable to yesterday. A repeat chest x-ray was done and it shows some limited improvement in the bilateral pulmonary infiltrates. the patient remains on Decadron and the dose is currently at 60 mg IV every 12 hours. inflammatory markers are elevated with an LDH level of 3 911 and the CRP is 22.5. His d-dimer is still elevated at 24.6 and the patient is on Lovenox at a dose of 40 mg subcu every 12 hours.. On his problem continue to be the patient's hypoxemia, Covid 19 related pneumonia and global weakness. Unfortunately, the patient is unable to eat as the patient desaturates significantly was taken off the BiPAP. 09/10/2020 the patient remains BiPAP dependent at the pressure of 12/6 cm of water. His FiO2 is still 100%. He was still able to generate adequate tidal volumes while being on a BiPAP. He has had a PICC line yesterday as the patient was not meeting his caloric requirements and I was also contemplating the possibility of TPN. His chest x-ray remains unchanged with diffuse bilateral infiltrates consistent with Covid 19 related pneumonia. His blood work is showing a d-dimer of 24 from 2 days ago. Electrolytes are normal, and no new inflammatory markers. The current pulse ox is 92% on a BiPAP and the patient remains on Decadron 6 mg IV every 12 hours. 09/11/2020, the patient remains on a BiPAP at a pressure of 12/6 and FiO2 of 100%. He is quite lethargic. He is in mild degree of respiratory distress even at rest while on the BiPAP. Current pulse ox is 89%. A PICC line was inserted yesterday and the patient was also started on TPN for nutritional support knowing that he was able to eat and he was not meeting his caloric requirements. His d-dimer is 15. The patient is on Lovenox 50 mg subcu every 12 hours. The patient is also receiving Decadron 6 mg IV 12 hours. Current pulse ox is around 89%. No major changes condition since yesterday. No other new labs otherwise. His resting in bed comfortably. He is generating tidal volumes above >600cc with respiratory rate in the mid 20s. He had no signs of any fluid overload. Mentation is preserved. Looks lethargic. He is able to answer questions and following commands. No other significant issues otherwise for now. I will today's condition is essentially stable since yesterday. 09/12/2020 the patient remains on BiPAP 12/6 cm of water with an FiO2 of 100%. Condition is essentially the same and unchanged compared to yesterday. The patient is currently on a pulse ox of 94% on above-mentioned BiPAP setting. He remains on Decadron 6 mg IV every 12 hours. He also is on Lovenox 50 mg subcu every 12 hours. He has an LDH level of 5040 at a CRP of 8.2. His inflammatory markers were obtained yesterday and they were quite elevated. He is still able to generate tidal volumes above 500 and his respiratory rate currently is in the 00s for now. Chest x-ray is consistent with diffuse bilateral pulmonary infiltrates. He has a PICC line in his left upper extremity and the patient is receiving TPN for nutritional support. As mentioned, he remains weak and lethargic. He is arousable and follows commands and answering questions. 09/13/2020, the patient got transferred to the intensive care unit where the patient got intubated and placed on a mechanical ventilator. Note that the patient was maintaining relatively fine on the BiPAP and ultimately desaturates., Became more short of breath and unresponsive in the blood. Showed significant hypoxemia and he had to come in to the ICU where he was intubated and placed on a mechanical ventilator. At this point and he is sedated with propofol running at 50 mcg/kg per minute and the patient is also paralyzed with Nimbex at 3 mcg/kg per minute. He is currently on assist control mode at the rate of 32 with a tidal volume of 400 and FiO2 of 1% with a PEEP of 15. The blood gases post intubation showed a pH of 7.22 and a pCO2 of 61 and pO2 of 89. His chest x-ray showing adequate positioning of ET tube. He has diffuse bilateral pulmonary infiltrates consistent with Covid 19 related p neumonia. Peak airway pressure 38. Static pressures 34. He is well rested and paralyzed for now. His BP currently is running at 156/59 and the patient was quite hypertensive prior to his intubation. His blood pressure came up to 182/110 and currently it's more stable. Labs are still pending for now. Meanwhile, the patient remains on Decadron 6 mg IV every 12 hours. Is also on Lovenox 40 mg subcu twice a day. He was receiving TPN for nutritional support as the patient was unable to take any form of oral intake as he was very much BiPAP dependent. TPN will be discontinued and the patient will be transitioned to enteral feeding note that he is currently intubated on a mechanical venti lator. A central line was also inserted. IV fluids are running at the rate of 20 mL an hour of normal saline. TPN Is currently running at 90 mL an hour. 09/14/2020, the patient is intubated on a mechanical ventilator in the intensive care unit. The patient currently is sedated and paralyzed. Propofol is running at 40 mcg/kg per minute and the Nimbex is running at 1.8 mcg/kg per minute. He is adequately sedated and paralyzed. He is still assist-control mode of mechanical ventilation at the rate of 32 with a tidal volume of 400 and FiO2 of 100% and a PEEP of 15. His blood gases from today showed a pH of 7.29 and pCO2 of 62 and pO2 of 86. We are allowing permissive hypercapnia. The peak and static pressures today are 14 and 34 respectively. His chest x-ray from today showing diffuse bilateral pulmonary infiltrates more so in the lower lobes and there is extensive consolidation of the lower lobes bilaterally. ET tube is at the level of the aortic knob. NG tube is in place. The patient remains on Decadron and currently is at a dose of 6 mg IV every 12 hours. In terms of his blood work, his inflammatory markers show a drop in the LDH level which is down to 294 and a CRP level is down to 5.2. D-dimer from a few days ago was 15.6 and the patient remains on Lovenox at a dose of 40 mg subcu every 12 hours. His TPN has been discontinued and the patient was switched enteral feeding and the patient is currently on vital high protein at the rate of 20 mL an hour which is at goal for now. IV fluids running at 20 mL an hour. He is hemodynamically stable. His overall fluid balance has been +1.6 L over the past 24 hours. Note that this patient was intubated yesterday after failing BiPAP for several days. He was intubated on 08/12/2020. Family is aware. Patient was reevaluated today on 09/15/2020, remains intubated and mechanically ventilated. Patient is presently on assist control rate of 52 tidal volume is 400 FiO2 at 90% PEEP is 15 ABG showed a pO2 of 77 pCO2 of 64 pH of 7.30. His peak airway pressure is 47 static pressure is 43. Attempted to adjust the PEEP higher, however he static pressure was getting much higher. Hence The PEEP at 15. And I adjusted the flow rate down to 60. He is on multiple drips including Nimbex at 1.5 mcg/kg/minute. he is on propofol at 40 mcg/kg per minute. Patient remains on permissive hypercapnia with a pCO2 of 64 pH of 7.30. Today considering the patient is on Nimbex I added fentanyl and 0.25 mcg/kg/h. And I switch his Decadron to Solu-Medrol at 60 mg IV push every 6 hours. Patient was intubated on 09/13 has been in the ICU since 09/13 he was actually admitted on 09/02 feeding gomez he is on HP20 mL per hour. Patient is sedated and paralyzed. Chest x-ray continues to show bilateral patchy infiltrates. Not much of a change noted. Patient was reevaluated today on 09/16/2020, remains in the ICU, intubated and mechanically ventilated. He is now on ventilator settings assist control rate of 3 to tell volume is 400 FiO2 80% and PEEP of 16. ABG showed a pO2 of 77 pCO2 of 68 pH of 7.28. Patient remains on propofol at 40, Nimbex at 1.2 fentanyl 0.5, IV fluid at KVO. FiO2 was decreased today from on the percent to 80%, and increase the flow rate to 65 L/m. Chest x-ray is showing no significant change. Patient remains fully sedated and paralyzed. He is on tube feeding using vital HP at 20 mL per hour. Electrolytes were reviewed potassium is 5.4. BUN is 55 creatinine 1.1, hence increase his IV fluid rate to 100 mL per hour. Bit of leukocytosis noted today, but improved compared to yesterday WBC count is 19.5 hemoglobin is 13.4. LDH continues on the rise to 081, and C-reactive protein is better at 1.5. Patient was reevaluated today on 09/17/2020, remains in the ICU, intubated mechanically ventilated, sedated, paralyzed, his ventilator settings are assist control rate of 32, tidal volume is 400 FiO2 65% and PEEP remains at 16. Peak airway pressure is 37, static pressures 27, chest x-ray continues to show by lateral patchy infiltrates consistent with COVID-19 pneumonia. ABG showed a pO2 of 64 pCO2 of 69 pH of 7.26. Hence his tidal volume was increased up to 420 7400. Patient will remain sedated. No plans to wean or extubated anytime soon. Patient remains on propofol at 40 Nimbex at 2 fentanyl 0.5 IV fluid at 100 mL per hour, he is on tube feeding 37/37 vital HP. Electrolytes are normal BUN is 58 creatinine is 1.08. Improving. LDH was 2080 yesterday. And C-reactive protein 1.5 Patient was reevaluated today on 09/18/2020, remains in the ICU intubated mechanically ventilated and sedated and paralyzed. Still requiring relatively high FiO2 of 65 and high PEEP of 16. ABG is marginal. He is on assist control rate of 34 tidal volume 420 FiO2 65% PEEP of 16. ABG showed a pO2 of 64 pCO2 of 61 pH of 7.32. Patient remains on propofol at 40 Nimbex at 0.2 and fentanyl at 0.5. Remains on tube feeding/vital HP at 37 mL per hour. Plan today to give the patient at least and Nimbex holiday if possible. Chest x-ray is basically unchanged. And his overall condition is about the same. WBC count is 14.9 hemoglobin is 12. Electrolytes showed elevated sodium of 146 hence the patient will be given free water and potassium of 5.6 we'll give a dose of Kayexalate. Renal profile showed a BUN of 54 creatinine 0.97, improving. Patient was reevaluated today on 09/19/2020, remains intubated and sedated, he is also paralyzed, remains on assist control rate of 32, tidal volume is 420 FiO2 65% and PEEP of 16. ABG showed a pO2 of 72 pCO2 of 63 pH of 7.32. His peak ai rway pressure is in the high 30s and plateau pressure is 31. Patient remains on IV fluid at 100 mL/h he is on Nimbex at 3, fentanyl at 1 on propofol at 40. He is on tube feeding using vital HP at goal. Today considering his sodium being elevated we have transitioned his IV fluids from 0.9 normal saline to D5W at 100 mL per hour and the patient will be receiving free water flushes via nasogastric tube. Chest x-ray is basically about the same, continues show by basilar patchy infiltrates, consistent with COVID-19 pneumonia, not much of a change is noted in the last couple of days. Hemodynamically gomez, the patient is stable, not requiring any pressors. Reevaluated today on 09/20/2020, patient remains intubated and sedated and mechanically ventilated and paralysis. On assist control rate of 32 tidal volume 420 FiO2 60% PEEP of 16. ABG showed a pO2 of 69 pCO2 of 62 pH of 7.32. Chest x-ray is basically about the same continues to by basilar patchy infiltrates. Remains on propofol at 20 Nimbex at 3 fentanyl at 1 D5W at 100 mL per hour. Remains on tube feeding. He is also receiving free water flushes. He is on enteral feeding using vital HP at 40 mL per hour. CBC is relatively normal hemoglobin is 10.7. Electrolytes sodium remains elevated at 145, however improving from 149 yesterday. BUN is 51 creatinine 1.03. Calcium is 7.9. No inflammatory markers were ordered today. Patient was reevaluated today on 09/21/2020, remains in the ICU, intubated and mechanically ventilated, sedated and paralyzed. Patient is on assist control rate of 32 tidal volume 420 FiO2 60% and PEEP of 16. ABG showed a pO2 of 65 pCO2 of 62 pH of 7.32. Remains on propofol at 25, Nimbex S3 fentanyl at 1 D5W at 100 mL per hour, and vital HP 40/40. Chest x-ray is showing slight improvement in his bilateral patchy infiltrates. Patient has not had a bowel movement in almost over a week, hence we'll start the patient on lactulose and Reglan. Today I have instructed the nurses to consider pronating the patient at least try presently position and hopefully address Nimbex holidays. However the patient is to be prone doubt other chemo on Nimbex. His IV fluid remains D5W and I cut it down to 50 mL per hour. After evaluating the patient, and patient was off Nimbex for a very short period of time developed atrial fibrillation with RVR, Lasix the patient on amiodarone as per protocol, bolused with amiodarone. And he had to go back on Nimbex. 2020, patient is being seen in follow-up in the intensive care units. Neurologically unchanged. Occasionally opens up his eyes and blinks. Does not follow any commands. Overall neurologic examination is the same as yesterday without any interval progression or worsening. Meanwhile, the patient is on a mechanical ventilator. As stated earlier, he is a tracheostomy tube. Current vent settings include an assist-control mode at the rate of 32 with a tidal volume of 420 and a PEEP is a 13 with an FiO2 of 60%. Chest x-ray showing diffuse breath and pulmonary infiltrates with areas of consolidation. Blood gases from today showed a pH of 7.24 with a pCO2 of 49 and pO2 of 129. Sputum was positive for MRSA and the patient is currently on Zyvox. The patient is afebrile. His white cell count is currently at 23.9. In terms of his COVID-19 related pneumonia, the patient is on steroids and the patient is receiving 40 mg by mouth daily. Antibiotic coverage is currently with a combination of Zyvox and cefepime. Another issue is the tracheostomy stoma where the patient has a large incision on his back and the stitches have already fallen apart and the patient has a dehisced wound. The stoma itself is intact. The skin around it is open and there is some liquidy material accumulating and pulling in that area. Appropriate dressing is applied to the general surgeon will be informed of this ongoing problem. Meanwhile, the patient is also developing progressive worsening renal function. Creatinine is up to 3.0. His overall urine output is no order of less than 10 mL an hour and her net fluid balance for yesterday has been +2.5 L. As such, the findings on the case and the plan is to proceed with hemodialysis with the next 24 hours especially of his lymphoma in his urine output and renal function. He is currently on Lasix and he is receiving Lasix 80 mg on a daily basis. No major electrode disturbance for now. He is receiving enteral feeding for nutritional support. Has a PEG tube in place. He has diffuse swelling all 4 extremities. As mentioned, he has a ongoing low- grade mucosal lesions/be bleed from his tongue and his lips. His hemoglobin is up to 6.6 and the patient is currently receiving a unit of packed RBC. No clear evidence of any GI bleed. He has a fecal management system in place. No diarrhea. Meanwhile, his cardiac rhythm and remained sinus. No episodes of A. fib/flutter since yesterday. He is currently on oral amiodarone. He is also on metoprolol and the dose has been reduced and infected was held as the patient is still requiring Santosh-Synephrine for hemodynamic support. His current Santosh- Synephrine dose is at 0.5 mg/kg/m and this could be weaned off. IV fluid maint enance is normal saline at the rate of 10 mL an hour. Patient was reevaluated today on 10/06/2020, patient remains in the ICU, intubated and mechanically ventilated, he has had a tracheostomy placed and he had a PEG tube placed. Patient has been off sedation for over a week, however his mental status does not seem to be improving much. Being followed by neurology. He is on assist control rate of 32, tidal volume is 420 FiO2 60% and rate of 13. FiO2 was decreased down to 55% after reviewing his ABG. ABG showed a pO2 of 82 pCO2 of 49 pH of 7.24 hence his FiO2 was decreased down to 55%. Chelsi rico is still being considered for hemodialysis. He is quite edematous, and he has very poor urine output. In spite of diuretics. Nephrology is addressing the issue of hemodialysis, and he is yet to be seen by vascular surgery for dialysis catheter placement. His IV fluid is at 10 mL/h. Patient has been in the hospital for 33 days, patient had a trach and PEG on 09/22 chest x-ray continues to show bilateral infiltrates. And again he is oliguric. Patient is growing MRSA around the site of the tracheostomy and around the PEG tube. He is on Zyvox. Patient is off Santosh-Synephrine. His enteral feeding has been on hold, however I see no reason to hold his enteral feeding, and we will restart his enteral feeding slowly. Via PEG tube. Continues to have some ongoing mucosal lesions or bleeding from the mouth and tongue as well as the lips., Hemoglobin today is 7.5. WBC count is 17.1. BUN is 149 creatinine is 3.84, liver enzymes are elevated with AST of 211 ALT of 266 and alkaline phosphatase of 128. Objective - Vital Signs Vital signs: Vital Signs Temp 97.2 F L 10/05/20 16:00 Pulse 67 10/06/20 10:00 Resp 32 H 10/06/20 10:00 BP 149/49 10/05/20 09:19 Pulse Ox 92 L 10/06/20 10:00 Intake & Output 10/05/20 10/06/20 10/06/20 18:59 06:59 18:59 Intake Total 1186.678 519.0 39 Output Total 68 80 10 Balance 1118.678 439.0 29 Weight 109.9 kg Intake: IV 543 519.0 39 0.45 Saline @ KVO 110 130 30 Cefepime 1 gm In Sodium 50 50.0 Chloride 0.9% 50 ml @ 12. 5 mls/hr IVPB Q12HR [facility] Rx#:[id number] Desmopressin Acetate 24 50 mcg In Sodium Chloride 0. 9% 50 ml @ 200 mls/hr IVPB ONCE ONE Rx#: [id number] Linezolid 600 mg In 300 300 Dextrose/Water 1 300ml. bag @ 150 mls/hr IVPB Q12HR [facility] Rx#:[id number] Normal Saline Pressure 33 39 9 bag Intake, IV Titration 93.678 Amount Phenylephrine 40 mg In 93.678 Sodium Chloride 0.9% 250 ml @ 0.5 MCG/KG/MIN 17. 697 mls/hr IV .[id number] [facility] Rx#:[id number] Tube Feeding 180 0 Blood Product 310 Rc As-1 Unit 310 [id number] Other 60 Output: Urine 68 80 10 Other: Voiding Method Indwelling Catheter Indwelling Catheter ABP, PAP, CO, CI - Last Documented Arterial Blood Pressure 151/47 - Exam GENERAL EXAM: Revealed 54-year-old male intubated and mechanically ventilated, completely off sedation and paralysis. HEAD: Normocephalic. Atraumatic, tracheostomy is intact. EYES: PERRLA, EOMI, nonicteric.. THROAT: Multiple superficial erosions noted in the mucosa of the mouth, tongue, and evidence of recent bleeding from these superficial ulcerations. Clearly has mucositis. NECK: No masses, no JVD. CHEST: No chest wall deformity. LUNGS: Crackles, mostly at the bases. Scattered rhonchi are noted. CVS: S1 and S2 normal with no audible murmur, regular rhythm. ABDOMEN: Soft nontender no megaly no rebound no guarding. PEG tube is intact. Musculoskeletal: No deformities. Did not assess range of motion. SKIN: No rashes CENTRAL NERVOUS SYSTEM: Awake, but does not follow any instructions. Opens eyes only. EXTREMITIES: 3+ bipedal edema, no cyanosis. Psychiatric: Unable to assess. - Labs CBC & Chem 7: 10/06/20 04:30 10/06/20 04:30 Labs: Abnormal Lab Results - Last 24 Hours (Table) 10/05/20 10/05/20 10/05/20 Range/Units 11:17 13:10 16:25 WBC 17.9 H (3.8-10.6) k/uL RBC 2.41 L (4.30-5.90) m/uL Hgb 7.6 L (13.0-17.5) gm/dL Hct 22.9 L (39.0-53.0) % RDW 16.7 H (11.5-15.5) % Plt Count 85 L (150-450) k/uL Neutrophils # (1.3-7.7) k/uL Lymphocytes # (1.0-4.8) k/uL ABG pH (7.35-7.45) ABG pCO2 (35-45) mmHg ABG pO2 (83-108) mmHg Sodium 131 L (137-145) mmol/L Potassium 5.5 H (3.5-5.1) mmol/L Carbon Dioxide 20 L (22-30) mmol/L BUN 144 H* (9-20) mg/dL Creatinine 3.30 H (0.66-1.25) mg/dL Glucose 123 H (74-99) mg/dL POC Glucose (mg/dL) 140 H (75-99) mg/dL Calcium 7.6 L (8.4-10.2) mg/dL AST (17-59) U/L ALT (4-49) U/L Alkaline Phosphatase (38-126) U/L Total Protein (6.3-8.2) g/dL Albumin (3.5-5.0) g/dL 10/05/20 10/05/20 10/06/20 Range/Units 17:31 23:52 00:03 WBC (3.8-10.6) k/uL RBC (4.30-5.90) m/uL Hgb (13.0-17.5) gm/dL Hct (39.0-53.0) % RDW (11.5-15.5) % Plt Count (150-450) k/uL Neutrophils # (1.3-7.7) k/uL Lymphocytes # (1.0-4.8) k/uL ABG pH (7.35-7.45) ABG pCO2 (35-45) mmHg ABG pO2 (83-108) mmHg Sodium (137-145) mmol/L Potassium 5.3 H (3.5-5.1) mmol/L Carbon Dioxide (22-30) mmol/L BUN (9-20) mg/dL Creatinine (0.66-1.25) mg/dL Glucose (74-99) mg/dL POC Glucose (mg/dL) 154 H 142 H (75-99) mg/dL Calcium (8.4-10.2) mg/dL AST (17-59) U/L ALT (4-49) U/L Alkaline Phosphatase (38-126) U/L Total Protein (6.3-8.2) g/dL Albumin (3.5-5.0) g/dL 10/06/20 10/06/20 10/06/20 Range/Units 04:30 04:30 04:31 WBC 17.1 H (3.8-10.6) k/uL RBC 2.39 L (4.30-5.90) m/uL Hgb 7.5 L (13.0-17.5) gm/dL Hct 22.5 L (39.0-53.0) % RDW 16.5 H (11.5-15.5) % Plt Count 85 L (150-450) k/uL Neutrophils # 16.2 H (1.3-7.7) k/uL Lymphocytes # 0.3 L (1.0-4.8) k/uL ABG pH 7.24 L (7.35-7.45) ABG pCO2 49 H (35-45) mmHg ABG pO2 82 L (83-108) mmHg Sodium 133 L (137-145) mmol/L Potassium 5.2 H (3.5-5.1) mmol/L Carbon Dioxide 21 L (22-30) mmol/L BUN 149 H* (9-20) mg/dL Creatinine 3.84 H (0.66-1.25) mg/dL Glucose (74-99) mg/dL POC Glucose (mg/dL) (75-99) mg/dL Calcium 7.4 L (8.4-10.2) mg/dL AST 211 H (17-59) U/L ALT 266 H (4-49) U/L Alkaline Phosphatase 128 H (38-126) U/L Total Protein 4.4 L (6.3-8.2) g/dL Albumin 2.2 L (3.5-5.0) g/dL Microbiology - Last 24 Hours (Table) 10/02/20 12:20 Blood Culture - Preliminary Blood No Growth after 72 hours Assessment and Plan Assessment: Impression: Acute hypoxic respiratory failure secondary to acute COVID-19 pneumonia with ARDS. Patient received toci, and convalescent plasma Failure to wean, required tracheostomy and PEG tube placement on 09/22. MRSA pneumonia is suspected. Patient is presently on Zyvox. Unresponsive, comatose, EEG consistent with acute toxic metabolic encephalopathy without any seizure activity. Non-ST elevation myocardial infarction Acute kidney injury with worsening renal failure, patient will require hemodialysis, and vascular surgery consultation is pending for dialysis catheter placement. Patient is being followed by nephrology. Electrolytes imbalance, improving. And being addressed accordingly including hyponatremia and hyperkalemia Acute on chronic anemia, possible GI blood losses, as well as ongoing phlebotomy with blood loss. Elevated inflammatory markers secondary to above Benign essential hypertension Former smoker. New onset atrial fibrillation with RVR. Requiring treatment with amiodarone. Presently in normal sinus rhythm. Recommendation:. Proceed with hemodialysis. Continue aranesp Continue ventilatory support, and tracheostomy care. Decrease FiO2 down to 55%. Otherwise no change in ventilator settings. Continue albuterol. Continue amiodarone. Continue GI prophylaxis. Resume enteral feeding slowly. Via PEG tube Continue steroids. Prednisone 40 mg daily. Continue Lasix 80 mg IV push every 24 hours. Hold anticoagulation therapy for now. Patient received convalescent plasma and toci Continue to monitor electrolytes. Continue Zyvox. Continue cefepime. Continue to daily assessment of her status. Continue GI and DVT prophylaxis Patient remains critically ill, critical care time is over 30 minutes. Time with Patient: Greater than 30
--- NOTE | 2020-10-06 11:44 | P.PN ---
Subjective Progress Note Date: 10/06/20 CHIEF COMPLAINT: COVID-19 pneumonia HISTORY OF PRESENT ILLNESS: Patient is in the ICU and is intubated. He is status post tracheostomy and PEG tube placement. Patient is tolerating tube feedings. No residual reported. Patient is scheduled for dialysis catheter placement and to start hemodialysis due to his worsening renal function. Patient has MRSA in sputum. Had breakdown of the skin at tracheostomy site. Aquacel silver is being applied to trach site. Patient did have a drop in his hemoglobin to 6.6 yesterday and required 1 unit of packed red blood cells. His hemoglobin is now 7.5. No active signs of bleeding. Tube feedings have been placed on hold yesterday because of the anemia and concerns of bleeding. Patient is having brown stools. Has fecal management system in place. PHYSICAL EXAM: VITAL SIGNS: Reviewed. GENERAL: Well-developed in no acute distress. HEENT: Moist buccal mucosa. Head is atraumatic, normocephalic. Tracheostomy site with skin breakdown ABDOMEN: Soft. Nondistended. Nontender. PEG tube site clean dry and intact NEUROLOGIC: Intubated ASSESSMENT: 1. Acute hypoxic respiratory failure due to COVID-19 pneumonia with prolonged mechanical ventilation status post tracheostomy placement 2. Moderate protein calorie malnutrition status post PEG tube placement PLAN: -Okay to resume tube feedings -Continue local wound care to tracheostomy site -Continue supportive care -Continue ICU management Physician Finance Teacher note has been reviewed by physician. Signing provider agrees with the documented findings, assessment, and plan of care. Objective - Vital Signs Vital signs: Vital Signs Temp 97.2 F L 10/05/20 16:00 Pulse 67 10/06/20 10:00 Resp 32 H 10/06/20 10:00 BP 149/49 10/05/20 09:19 Pulse Ox 92 L 10/06/20 10:00 Intake & Output 10/05/20 10/06/20 10/06/20 18:59 06:59 18:59 Intake Total 1186.678 519.0 39 Output Total 68 80 10 Balance 1118.678 439.0 29 Weight 109.9 kg 109.9 kg Intake: IV 543 519.0 39 0.45 Saline @ KVO 110 130 30 Cefepime 1 gm In Sodium 50 50.0 Chloride 0.9% 50 ml @ 12. 5 mls/hr IVPB Q12HR [facility] Rx#:[id number] Desmopressin Acetate 24 50 mcg In Sodium Chloride 0. 9% 50 ml @ 200 mls/hr IVPB ONCE ONE Rx#: [id number] Linezolid 600 mg In 300 300 Dextrose/Water 1 300ml. bag @ 150 mls/hr IVPB Q12HR [facility] Rx#:[id number] Normal Saline Pressure 33 39 9 bag Intake, IV Titration 93.678 Amount Phenylephrine 40 mg In 93.678 Sodium Chloride 0.9% 250 ml @ 0.5 MCG/KG/MIN 17. 697 mls/hr IV .[id number] [facility] Rx#:[id number] Tube Feeding 180 0 Blood Product 310 Rc As-1 Unit 310 [id number] Other 60 Output: Urine 68 80 10 Other: Voiding Method Indwelling Catheter Indwelling Catheter ABP, PAP, CO, CI - Last Documented Arterial Blood Pressure 151/47 - Labs CBC & Chem 7: 10/06/20 04:30 10/06/20 04:30 Labs: Abnormal Lab Results - Last 24 Hours (Table) 10/05/20 10/05/20 10/05/20 Range/Units 13:10 16:25 17:31 WBC 17.9 H (3.8-10.6) k/uL RBC 2.41 L (4.30-5.90) m/uL Hgb 7.6 L (13.0-17.5) gm/dL Hct 22.9 L (39.0-53.0) % RDW 16.7 H (11.5-15.5) % Plt Count 85 L (150-450) k/uL Neutrophils # (1.3-7.7) k/uL Lymphocytes # (1.0-4.8) k/uL ABG pH (7.35-7.45) ABG pCO2 (35-45) mmHg ABG pO2 (83-108) mmHg Sodium 131 L (137-145) mmol/L Potassium 5.5 H (3.5-5.1) mmol/L Carbon Dioxide 20 L (22-30) mmol/L BUN 144 H* (9-20) mg/dL Creatinine 3.30 H (0.66-1.25) mg/dL Glucose 123 H (74-99) mg/dL POC Glucose (mg/dL) 154 H (75-99) mg/dL Calcium 7.6 L (8.4-10.2) mg/dL AST (17-59) U/L ALT (4-49) U/L Alkaline Phosphatase (38-126) U/L Total Protein (6.3-8.2) g/dL Albumin (3.5-5.0) g/dL 10/05/20 10/06/20 10/06/20 Range/Units 23:52 00:03 04:30 WBC 17.1 H (3.8-10.6) k/uL RBC 2.39 L (4.30-5.90) m/uL Hgb 7.5 L (13.0-17.5) gm/dL Hct 22.5 L (39.0-53.0) % RDW 16.5 H (11.5-15.5) % Plt Count 85 L (150-450) k/uL Neutrophils # 16.2 H (1.3-7.7) k/uL Lymphocytes # 0.3 L (1.0-4.8) k/uL ABG pH (7.35-7.45) ABG pCO2 (35-45) mmHg ABG pO2 (83-108) mmHg Sodium (137-145) mmol/L Potassium 5.3 H (3.5-5.1) mmol/L Carbon Dioxide (22-30) mmol/L BUN (9-20) mg/dL Creatinine (0.66-1.25) mg/dL Glucose (74-99) mg/dL POC Glucose (mg/dL) 142 H (75-99) mg/dL Calcium (8.4-10.2) mg/dL AST (17-59) U/L ALT (4-49) U/L Alkaline Phosphatase (38-126) U/L Total Protein (6.3-8.2) g/dL Albumin (3.5-5.0) g/dL 10/06/20 10/06/20 Range/Units 04:30 04:31 WBC (3.8-10.6) k/uL RBC (4.30-5.90) m/uL Hgb (13.0-17.5) gm/dL Hct (39.0-53.0) % RDW (11.5-15.5) % Plt Count (150-450) k/uL Neutrophils # (1.3-7.7) k/uL Lymphocytes # (1.0-4.8) k/uL ABG pH 7.24 L (7.35-7.45) ABG pCO2 49 H (35-45) mmHg ABG pO2 82 L (83-108) mmHg Sodium 133 L (137-145) mmol/L Potassium 5.2 H (3.5-5.1) mmol/L Carbon Dioxide 21 L (22-30) mmol/L BUN 149 H* (9-20) mg/dL Creatinine 3.84 H (0.66-1.25) mg/dL Glucose (74-99) mg/dL POC Glucose (mg/dL) (75-99) mg/dL Calcium 7.4 L (8.4-10.2) mg/dL AST 211 H (17-59) U/L ALT 266 H (4-49) U/L Alkaline Phosphatase 128 H (38-126) U/L Total Protein 4.4 L (6.3-8.2) g/dL Albumin 2.2 L (3.5-5.0) g/dL Microbiology - Last 24 Hours (Table) 10/02/20 12:20 Blood Culture - Preliminary Blood No Growth after 72 hours
--- NOTE | 2020-10-06 12:22 | P.PCN ---
Date of Procedure: 10/06/20 Preoperative Diagnosis: Acute Renal failure Postoperative Diagnosis: Same Procedure(s) Performed: Temporary hemodialysis catheter placement via right common femoral vein ultrasound guidance Anesthesia: local Surgeon: Eligio Pascal Estimated Blood Loss (ml): 5 Pathology: none sent Condition: stable Disposition: ICU Indications for Procedure: 54 year old gentleman with history of Covid 19 with recent trach and PEG whom has been treated in the ICU for several weeks and has developed acute renal failure and metabolic encephalopathy in need of hemodialysis. Description of Procedure: After written informed consent was obtained from the family and all risks, benefits, complications were described the procedure was performed at bedside. Utilizing ultrasound the right common femoral vein was visualized and shown to be patent without any thrombus. Utilizing a multipurpose needle the right common femoral vein was accessed. Dark nonpulsatile blood flow was visualized. Guidewire was placed and needle was removed. Serial dilation was then performed and a 20 cm straight Mahurkar dialysis catheter was then guided over the guidewire. Guidewire was then removed and ports were assessed for patency. All ports were easily flushed and hep-locked. The catheter was then sutured in place with nylon suture. The area was then cleansed and dressings were placed. Patient tolerated procedure well.
--- NOTE | 2020-10-06 13:17 | P.PN ---
Subjective Progress Note Date: 10/06/20 This is a 54-year-old male who was recently admitted with acute hypoxic respiratory failure secondary to COVID-19 pneumonia and is being closely monitored. Continues to remain on mechanical ventilation currently sedated. Patient has had prolonged hospitalization with unsuccessful attempts at weaning and surgery has been consulted for tracheostomy along with PEG tube placement. Patient was on D5 water for hypernatremia and will be discontinued. Tube feedings on hold for surgery today and will resume once PEG tube is okay for use. Per nursing staff patient has also been in the prone position since yesterday evening into this morning and tolerated. Amiodarone has also been discontinued as patient is currently bradycardic. Pulmonary bituminous distributor operator following closely. Patient is maintained on sliding scale and will monitor closely once tube feedings have resumed. 09/23/2020 Patient is seen in follow-up continues to be closely monitored in the ICU maintained on mechanical vent via tracheostomy as he underwent trach and PEG tube placement yesterday with surgery. Tube feedings to resume via PEG tube this afternoon after clearance from surgery. Chest x-ray today shows bilateral multifocal and confluent opacities left greater than right consistent with COVID-19 again redemonstrated with no significant change from yesterday. Pulmonary also following. White blood count at 20.9, hemoglobin is 11.3, current sodium is 138 with a potassium of 5.2, and creatinine is 0.83. 09/24/2020 Patient continues to be intubated and sedated in the ICU status post tracheostomy and PEG tube placement. Tube feedings have been resumed and patient is tolerating. Chest x-ray today shows continued patchy airspace infiltrates although there is interval improvement noted. Pulmonary following closely. White blood count slightly elevated at 23.2 patient is maintained on IV Solu-Medrol every 6 hours. Sodium 143 with a potassium of 5.0 and current creatinine is 0.84. 09/25/2020 Patient continues to be in the ICU on mechanical ventilation intubated via tracheostomy and continued on sedation and is being closely monitored. PEEP being titrated down slowly and patient continues on Nimbex along with propofol and fentanyl. White blood count on a downward trend 17.2 with hemoglobin of 9.7, sodium is 144 with a potassium of 4.9 and current creatinine is 0.95. FiO2 remains at 50 and maintaining 87 and 90% oxygen saturation. Social work also following and discussion with family about possible LTAC placement. 09/26/2020 Patient is seen in follow-up continues to be closely monitored in the ICU. Patient is off of Nimbex since yesterday and tolerating. Patient continues to be sedated and pulmonary bituminous distributor operator following closely and working on weaning FiO2 as tolerated. FiO2 has been decreased to 50 and PEEP continues at 17. Patient's calcium was low on this morning's labs at 4.9 and was given a dose of calcium gluconate. Patient labs this morning show sodium of 143 with a potassium of 3.5 and creatinine is 0.57, LDH is 1027, CRP is 8.7 and magnesium is 1.9. Continue with electrolyte replacement per protocol. His repeat potassium this afternoon as showing 6.0 may potentially be a hemolyzed sample and will redraw and monitor closely. Patient did receive that Braden supplementation from this morning's labs as it was 3.5. 09/27/2020 The patient remains on the mechanical ventilator. His vent settings include assist control mode, rate 32, tidal volume 420, FiO2 50%, and PEEP of 17. Arterial blood gases show pO2 61, pCO2 56, pH 7.38. The patient's currently on propofol at 35 mcg/kg/m, and fentanyl 1.5 mcg/kg per hour. The patient's getting saline at KVO, and tube feedings with Nepro at 25 mL an hour which is goal. Chest x-ray is stable. Shows bilateral diffuse infiltrates. White count 18.1, he will 9.7, hematocrit 30.2, platelet count 175,000. D-dimer is 1.27. Sodium 144, potassium 4.1, chlorides 118, CO2 27, BUN 42, creatinine 0.78. LDH is 1528, and C-reactive protein is 13.5. 09/28/2020 patient is seen in follow-up in the intensive care unit. HRemains intubated and on mechanical ventilator. He had undergone tracheostomy tube and PEG tube placements on 09/22/2020. He is sedated on propofol at 40 mcg/kg/m. Fentanyl at 1.5 mcg/mg per hour. 0.9 normal saline at KVO. He is being nourished with Nepro at 25 ML's per hour which is goal. Free water flushes at 30 MLS every 4 hours. He's had daily interruption of sedation. Once off sedation his blood pressure goes up to 200 systolic range. Today's chest x-ray reveals stable bilateral diffuse interstitial infiltrates. He has received 1 unit of convalescent plasma. Blood cultures reveal no growth. White count 15.5. Hemoglobin 8.8. Platelets 160. Sodium 142. Potassium 4.9. Creatinine 0.86. He has continued on Solu-Medrol, Lovenox, vitamin supplements. Prognosis remains guarded. 09/29/2020 Patient is seen in follow-up continues to be in the ICU intubated and sedated. Patient is off Nimbex with attempts at sedation holiday and having rebound blood pressure issues and placed on labetalol. Continues on IV Solu-Medrol along with vitamin and zinc supplements and Lovenox and will continue. FiO2 down to 50 and PEEP of 13. Pulmonary following closely. Patient continues with intermittent low-grade temps and elevated white count. D-dimer today is 1.57, sodium is 145, potassium is 4.6, current creatinine is 0.86. Inflammatory markers are elevated along with CRP and probe calcitonin. 09/30/2020 Patient is seen in follow-up currently remains in the ICU intubated and off sedation but no activity noted. Patient is not responding to commands and CT of the brain is ordered showing age-related atrophic and chronic small vessel ischemic change without any acute intracranial process along with the neck and chest CT continues to show groundglass opacities. Patient is off of labetalol and continues on that now. Propofol has been discontinued. Steroids transition to oral and given via PEG tube and continues on tube feedings which he is tolera ting. White blood count continues to be elevated at 21.7 and hemoglobin is 10.3, sodium is 147 and will increase free water flushes with tube feedings and monitor sodium closely. Potassium is 4.5. 10/01/2020 Patient continues to be closely monitored in the ICU and maintained off of sedation and remains unresponsive with very minimal brainstem reflexes otherwise not responding to painful stimulation or voice. Continue with free water flushes and monitor hypernatremia closely as sodium was elevated at 148 today. Continue with half normal saline at 75 ML per hour. D-dimer elevated at 3.48 today. White blood count also 22.7, hemoglobin is 9.6, creatinine elevated at 1.31, and sodium is 4.7. LDH slightly trending down at 2244 also CRP is up at 20.5. Chest x-ray today shows patchy. Hilar and basilar infiltrates persist without significant change. Will have neurology reevaluate the patient as he continues to be unresponsive and off sedation for 48 hours now. 10/02/2020 Patient is seen in follow-up continues to be closely monitored in the ICU and also continues off sedation and continues to be unresponsive. EEG was done which was abnormal showing no epileptiform activity and some background slowing of at least moderate degree suggestive of generalized cerebral dysfunction as can be seen in toxic metabolic encephalopathy or due to diffuse structural brain abnormalities. Patient's sodium is 144 today with a potassium of 4.6 and creatinine worsening at 2.08 and continues on half normal saline. White blood count elevated at 25.4 and continues with low-grade intermittent temps and showing MRSA in the sputum and was started on Zyvox. Patient also having some possible SVT and was given adenosine although appears to be atrial flutter and Cardizem was initiated although having low blood pressures which was discontinued. Patient is now on amiodarone drip along with heparin drip and cardiology following. 10/03/2020 Patient is seen this morning with bituminous distributor operator also at the bedside and continues to be closely monitored in the ICU. Continues off of all sedatives and continues to be unresponsive with no activity noted. Multiple medical consultations following including neurology, cardiology, pulmonary, and nephrology now consulted as patient has worsening creatinine and is currently 2.39 with a BUN of 105. Sodium improved at 138 and potassium is 4.5. Liver f unctions also worsening. Patient remains on a heparin drip and amiodarone has been transitioned oral amiodarone. Continues on oral prednisone and vitamin and zinc supplements and will continue. Patient's IV fluids are 0.45 at 75 ML per hour. Will await neuro consult. Patient has generalized edema bilateral upper and lower extremities and being started on IV Lasix Need to discuss with family about CODE STATUS as prognosis remains extremely guarded. 10/04/2020 Patient has a extensive prolonged hospitalization for more than 30 days patient presently has tracheostomy and PEG tube in place patient has secondary bacterial pneumonia with the staph aureus and patient is on linezolid did patient has very minimal or no urine output continues to have renal dysfunction and worsening creatinine nephrology is following the patient and patient was started on Lasix. She and is presently on ventilatory support assist-control ventilation set up respiratory 22 titer volume 420 people 13 FiO2 of 70% patient has been off sedation in spite of which patient is unresponsive and comatose brainstem re flexes are present no particle function EEG showed diffuse encephalopathy. Computed tomography scan that was done yesterday showed chronic microvascular ischemic changes neurology is following the patient as well. Patient chest x- ray still showing pulmonary infiltrates. he is on amiodarone for atrial flutter/fibrillation. Patient was on IV heparin which was now discontinued 10/05/2020 Patient's overall clinical condition is much worse today patient doesn't have any new significant neurological improvement. Patient's hemoglobin did drop receiving 11 unit of PRBC transfusion presently around the 6.5 there is no acute GI bleed or any other source of acute bleed. The patient remains on no steroids. Patient tracheostomy site appears to be dye history because of which the surgery evaluated the patient back as Selsun Blue is being applied. Patient has MRSA in the sputum patient is presently on Zyvox as well as cefepime. Chest x-ray showing worsening infiltrates. Creatinine did go up to 3 with highly elevated BNP patient remains on Lasix at this time patient will undergo dialysis catheter placement tomorrow, patient does have a fecal management system receiving tube feeding through peg tube white blood cell count continued to be high but improved to 23,000. Patient is presently sinus rhythm remains on amiodarone patient is on vasopressin at 0.5 mg/kg/m which is being weaned off patient remains on ventilator support with tidal volume of 420 peep of 13 FiO2 60%. Sulfur Burner had an extensive discussion with the family family wanted to continue care. 10/06/2020 Patient is seen and evaluated continues to be closely monitored in the ICU currently receiving catheter placement for hemodialysis as kidney functions continue to worsen and nephrology following. Multiple consultations following. Sodium today is 133 with a potassium of 5.2 BUN is 149 with the current cr eatinine of 3.84. Liver functions continue to be elevated although slightly trending down. Urine output very minimal and continues to be edematous and on IV Lasix. Patient remains on Zyvox and cefepime as there is MRSA in the sputum. Hemoglobin is 7.5. Neurologically only occasionally opening eyes and does not follow commands. Prognosis remains extremely guarded Review of systems: Unable to obtain as patient continues to be intubated and sedated Active Medications Acetaminophen (Acetaminophen Tab 325 Mg Tab) 650 mg PO Q6HR PRN PRN Reason: Fever and/ or Pain Last Admin: 09/16/20 11:48 Dose: 650 mg Documented by: Albuterol Sulfate (Albuterol Hfa Inhaler) 2 puff INHALATION RT-QID [facility] Last Admin: 10/06/20 11:03 Dose: 2 puff Documented by: Amiodarone HCl (Amiodarone 100 Mg Tab) 100 mg PO BID [facility] Last Admin: 10/06/20 09:56 Dose: 100 mg Documented by: Artificial Tears (Artificial Tears-Hypromellose Drops 15 Ml Btl) 2 drops BOTH EYES QID [facility] Last Admin: 10/05/20 21:31 Dose: 2 drops Documented by: Ascorbic Acid (Ascorbic Acid 500 Mg Tab) 500 mg PO BID [facility] Last Admin: 10/06/20 09:55 Dose: 500 mg Documented by: Aspirin (Aspirin 81 Mg) 81 mg PO DAILY [facility] Last Admin: 10/06/20 09:55 Dose: 81 mg Documented by: Atorvastatin Calcium (Atorvastatin 80 Mg Tab) 80 mg PO DAILY [facility] Last Admin: 10/06/20 09:55 Dose: 80 mg Documented by: Calcium Acetate (Calcium Acetate 667 Mg Tab) 667 mg PO TID-W/MEALS [facility] Last Admin: 10/06/20 08:36 Dose: Not Given Documented by: Chlorhexidine Gluconate (Chlorhexidine Gluconate 15 Ml Cup) 15 ml MUCOUS MEM BID [facility] Last Admin: 10/06/20 09:55 Dose: 15 ml Documented by: Cholecalciferol (Cholecalciferol 25 Mcg (1000 Iu) Tablet) 125 mcg PO DAILY [facility] Last Admin: 10/06/20 09:55 Dose: 125 mcg Documented by: Darbepoetin Beau (Darbepoetin Beau 40 Mcg/0.4 Ml Syringe) 40 mcg SQ Q7D [facility] Last Admin: 10/05/20 09:17 Dose: 40 mcg Documented by: Famotidine (Famotidine 20 Mg Tab) 20 mg PO DAILY [facility] Last Admin: 10/06/20 09:55 Dose: 20 mg Documented by: Furosemide (Furosemide 10 Mg/Ml 10 Ml Vial) 80 mg IV DAILY [facility] Last Admin: 10/06/20 09:55 Dose: 80 mg Documented by: Linezolid 600 mg/ IV Solution 300 mls @ 150 mls/hr IVPB Q12HR [facility]; Protocol Last Admin: 10/06/20 09:54 Dose: 150 mls/hr Documented by: Phenylephrine HCl 40 mg/ (Sodium Chloride) 254 mls @ 17.697 mls/hr IV .[id number] [facility]; Protocol Last Titration: 10/05/20 16:31 Dose: 0 mcg/kg/min, 0 mls/hr Documented by: Cefepime HCl 1 gm/ Sodium (Chloride) 50 mls @ 12.5 mls/hr IVPB Q12HR [facility] Last Admin: 10/06/20 09:55 Dose: 12.5 mls/hr Documented by: Insulin Aspart (Insulin Aspart (Novolog) 100 Unit/Ml Vial) 0 unit SQ Q6HR [facility]; Protocol Last Admin: 10/06/20 06:06 Dose: Not Given Documented by: Metoprolol Tartrate (Metoprolol Tartrate 12.5 Mg Tab) 12.5 mg PO DAILY [facility] Last Admin: 10/06/20 09:55 Dose: 12.5 mg Documented by: Nitroglycerin (Nitroglycerin Sl Tabs 0.4 Mg Tab) 0.4 mg SUBLINGUAL Q5M PRN PRN Reason: Chest Pain Last Admin: 09/07/20 03:35 Dose: 0.4 mg Documented by: Prednisone (Prednisone 20 Mg Tab) 40 mg PO DAILY [facility] Last Admin: 10/06/20 09:55 Dose: 40 mg Documented by: Promethazine HCl (Promethazine Hcl 6.25 Mg/5 Ml Cup) 12.5 mg PO QID PRN PRN Reason: Cough Last Admin: 09/06/20 02:07 Dose: 12.5 mg Documented by: Zinc Sulfate (Zinc Sulfate 220 Mg Cap) 220 mg PO DAILY [facility] Last Admin: 10/05/20 07:51 Dose: 220 mg Documented by: Objective - Vital Signs Vital signs: Vital Signs Temp 97.2 F L 10/05/20 16:00 Pulse 68 10/06/20 06:00 Resp 34 H 10/06/20 06:00 BP 149/49 10/05/20 09:19 Pulse Ox 97 10/06/20 06:00 Intake & Output 10/05/20 10/06/20 10/06/20 18:59 06:59 18:59 Intake Total 1186.678 519.0 Output Total 68 80 Balance 1118.678 439.0 Weight 109.9 kg Intake: IV 543 519.0 0.45 Saline @ KVO 110 130 Cefepime 1 gm In Sodium 50 50.0 Chloride 0.9% 50 ml @ 12. 5 mls/hr IVPB Q12HR [facility] Rx#:[id number] Desmopressin Acetate 24 50 mcg In Sodium Chloride 0. 9% 50 ml @ 200 mls/hr IVPB ONCE ONE Rx#: [id number] Linezolid 600 mg In 300 300 Dextrose/Water 1 300ml. bag @ 150 mls/hr IVPB Q12HR [facility] Rx#:[id number] Normal Saline Pressure 33 39 bag Intake, IV Titration 93.678 Amount Phenylephrine 40 mg In 93.678 Sodium Chloride 0.9% 250 ml @ 0.5 MCG/KG/MIN 17. 697 mls/hr IV .[id number] [facility] Rx#:[id number] Tube Feeding 180 0 Blood Product 310 Rc As-1 Unit 310 [id number] Other 60 Output: Urine 68 80 Other: Voiding Method Indwelling Catheter Indwelling Catheter ABP, PAP, CO, CI - Last Documented Arterial Blood Pressure 159/52 - Exam GENERAL: patient has a tracheostomy and ventilatory support patient has a gaping hole around the tracheostomy site . HEENT: patient does have occasional brainstem reflexes, No conjunctival pallor. Normocephalic, atraumatic. No pharyngeal erythema. No thyromegaly. Occasional eye opening CARDIOVASCULAR: S1 and S2 muffled PULMONARY: Diminished breath sounds bilaterally with scattered crackles and rhonchi noted. ABDOMEN: Soft, nontender, nondistended, normoactive bowel sounds. No palpable organomegaly. PEG tube is in place MUSCULOSKELETAL: No joint swelling or deformity. EXTREMITIES: No cyanosis, clubbing, generalized edema noted of upper and lower extremities NEUROLOGICAL: Patient is is not moving any of his limbs SKIN: No rashes. - Labs CBC & Chem 7: 10/06/20 04:30 10/06/20 04:30 Labs: Abnormal Lab Results - Last 24 Hours (Table) 10/05/20 10/05/20 10/05/20 Range/Units 05:19 11:17 13:10 WBC 17.9 H (3.8-10.6) k/uL RBC 2.41 L (4.30-5.90) m/uL Hgb 7.6 L (13.0-17.5) gm/dL Hct 22.9 L (39.0-53.0) % RDW 16.7 H (11.5-15.5) % Plt Count 85 L (150-450) k/uL Neutrophils # (1.3-7.7) k/uL Lymphocytes # (1.0-4.8) k/uL ABG pH (7.35-7.45) ABG pCO2 (35-45) mmHg ABG pO2 (83-108) mmHg Sodium (137-145) mmol/L Potassium (3.5-5.1) mmol/L Carbon Dioxide (22-30) mmol/L BUN (9-20) mg/dL Creatinine (0.66-1.25) mg/dL Glucose (74-99) mg/dL POC Glucose (mg/dL) 140 H (75-99) mg/dL Calcium (8.4-10.2) mg/dL AST (17-59) U/L ALT (4-49) U/L Alkaline Phosphatase (38-126) U/L Total Protein (6.3-8.2) g/dL Albumin (3.5-5.0) g/dL Crossmatch See Detail 10/05/20 10/05/20 10/05/20 Range/Units 16:25 17:31 23:52 WBC (3.8-10.6) k/uL RBC (4.30-5.90) m/uL Hgb (13.0-17.5) gm/dL Hct (39.0-53.0) % RDW (11.5-15.5) % Plt Count (150-450) k/uL Neutrophils # (1.3-7.7) k/uL Lymphocytes # (1.0-4.8) k/uL ABG pH (7.35-7.45) ABG pCO2 (35-45) mmHg ABG pO2 (83-108) mmHg Sodium 131 L (137-145) mmol/L Potassium 5.5 H (3.5-5.1) mmol/L Carbon Dioxide 20 L (22-30) mmol/L BUN 144 H* (9-20) mg/dL Creatinine 3.30 H (0.66-1.25) mg/dL Glucose 123 H (74-99) mg/dL POC Glucose (mg/dL) 154 H 142 H (75-99) mg/dL Calcium 7.6 L (8.4-10.2) mg/dL AST (17-59) U/L ALT (4-49) U/L Alkaline Phosphatase (38-126) U/L Total Protein (6.3-8.2) g/dL Albumin (3.5-5.0) g/dL Crossmatch 10/06/20 10/06/20 10/06/20 Range/Units 00:03 04:30 04:30 WBC 17.1 H (3.8-10.6) k/uL RBC 2.39 L (4.30-5.90) m/uL Hgb 7.5 L (13.0-17.5) gm/dL Hct 22.5 L (39.0-53.0) % RDW 16.5 H (11.5-15.5) % Plt Count 85 L (150-450) k/uL Neutrophils # 16.2 H (1.3-7.7) k/uL Lymphocytes # 0.3 L (1.0-4.8) k/uL ABG pH (7.35-7.45) ABG pCO2 (35-45) mmHg ABG pO2 (83-108) mmHg Sodium 133 L (137-145) mmol/L Potassium 5.3 H 5.2 H (3.5-5.1) mmol/L Carbon Dioxide 21 L (22-30) mmol/L BUN 149 H* (9-20) mg/dL Creatinine 3.84 H (0.66-1.25) mg/dL Glucose (74-99) mg/dL POC Glucose (mg/dL) (75-99) mg/dL Calcium 7.4 L (8.4-10.2) mg/dL AST 211 H (17-59) U/L ALT 266 H (4-49) U/L Alkaline Phosphatase 128 H (38-126) U/L Total Protein 4.4 L (6.3-8.2) g/dL Albumin 2.2 L (3.5-5.0) g/dL Crossmatch 10/06/20 Range/Units 04:31 WBC (3.8-10.6) k/uL RBC (4.30-5.90) m/uL Hgb (13.0-17.5) gm/dL Hct (39.0-53.0) % RDW (11.5-15.5) % Plt Count (150-450) k/uL Neutrophils # (1.3-7.7) k/uL Lymphocytes # (1.0-4.8) k/uL ABG pH 7.24 L (7.35-7.45) ABG pCO2 49 H (35-45) mmHg ABG pO2 82 L (83-108) mmHg Sodium (137-145) mmol/L Potassium (3.5-5.1) mmol/L Carbon Dioxide (22-30) mmol/L BUN (9-20) mg/dL Creatinine (0.66-1.25) mg/dL Glucose (74-99) mg/dL POC Glucose (mg/dL) (75-99) mg/dL Calcium (8.4-10.2) mg/dL AST (17-59) U/L ALT (4-49) U/L Alkaline Phosphatase (38-126) U/L Total Protein (6.3-8.2) g/dL Albumin (3.5-5.0) g/dL Crossmatch Microbiology - Last 24 Hours (Table) 10/02/20 12:20 Blood Culture - Preliminary Blood No Growth after 72 hours Assessment and Plan Assessment: -Acute hypoxic respiratory failure secondary to Covid 19 pneumonia, extensive interstitial pneumonia on mechanical ventilation secondary bacterial bronchitis and pneumonia with MRSA. Patient to remains on ventilatory support, nutritional support via PEG tube -Comatose state with absence of cortical functions secondary to severe metabolic encephalopathy, no seizure activity noted -Status post PEG tube and tracheostomy placement -Acute kidney injury secondary to acute tubular necrosis with worsening creatinine -Sputum growing MRSA -Atrial fibrillation with fast ventricular rate: Patient is presently rate controlled on amiodarone -Change in mental status, acute metabolic encephalopathy -Drop in hemoglobin without any clinical evidence of acute blood loss status post 1 unit of PRBC. Probably secondary to frequent blood draws -Hypertension -Elevated troponin possibly secondary to type II acute myocardial infarction secondary to hypoxemia and COVID-19 -GI prophylaxis with Pepcid -DVT prophylaxis with Lovenox -Full code Recommendations and discussion: Recommend to continue with current medications and current ICU management. P atient continues to be off of paralytics and sedatives with no neurological response. Occasional sporadic eye opening, following any commands. Patient being followed by multiple medical consultations and currently receiving hemodialysis port placement as he will be starting dialysis and nephrology is following. Kidney functions continue to worsen. Patient continues on IV antibiotics for MRSA in the sputum. Pulmonary, neurology, and cardiology also following. Patient has had prolonged hospitalization requiring tracheostomy and PEG tube placement and will be soon starting hemodialysis. Family wishes are for to continue with CODE STATUS a full code. Due to multiple complex medical issues prognosis remains extremely guarded. Further recommendations to follow based on the clinical course the patient. Time with Patient: Greater than 30
[2020-10-06] MEDS: ZINC SULFATE 220 MG CAP PO SCH (14:20)
[2020-10-06] MEDS: ARTIFICIAL TEARS-HYPROMELLOSE DROPS 15 ML BTL BOTH EYES SCH ×4 (14:20→23:09)
[2020-10-06] MEDS: PHENYLEPHRINE 40 MG in SODIUM CHLORIDE 0.9% 250 ML IV SCH (18:39)
[2020-10-06 19:05] LABS: Glucose,Whole Blood 96 mg/dL (75-99)
[2020-10-06 23:54] LABS: Glucose,Whole Blood 96 mg/dL (75-99)
[2020-10-07] MEDS: INSULIN ASPART (NovoLOG) 100 UNIT/ML VIAL SQ SCH ×4 (00:13→19:06)
[2020-10-07 05:19] LABS: Glucose,Whole Blood 112 mg/dL (75-99)
[2020-10-07 05:25] LABS: ABG Base Excess -6.3 mmol/L; ABG HCO3 22 mmol/L (21-25); ABG Oxygen Saturation 91.9 % (94-97); ABG PCO2 53 mmHg (35-45); ABG PH 7.22 (7.35-7.45); ABG PO2 70 mmHg (83-108); ABG TCO2 23 mmol/L (19-24); Allen Test Performed? Yes
[2020-10-07 06:03] LABS: Anisocytosis Slight; Basophils % (A) 0 %; Eosinophils % (A) 0 %; HCT 24.3 % (39.0-53.0); HGB 8.2 gm/dL (13.0-17.5); Lymphocytes # (A) 0.3 k/uL (1.0-4.8); Lymphocytes % (A) 2 %; MCH 31.9 pg (25.0-35.0); MCHC 33.8 g/dL (31.0-37.0); MCV 94.4 fL (80.0-100.0); Macrocytosis Slight; Mean Platelet Volume 10.1; Monocytes # (A) 0.2 k/uL (0-1.0); Monocytes % (A) 2 %; Neutrophils # (A) 14.9 k/uL (1.3-7.7); Neutrophils % (A) 96 %; Platelet Count 116 k/uL (150-450); RBC 2.57 m/uL (4.30-5.90); WBC 15.5 k/uL (3.8-10.6)
[2020-10-07 06:29] LABS: Albumin 2.2 g/dL (3.5-5.0); Calcium 7.6 mg/dL (8.4-10.2); Total Bilirubin 0.8 mg/dL (0.2-1.3); Total Protein 4.4 g/dL (6.3-8.2)
--- NOTE | 2020-10-07 07:06 | XR ---
EXAMINATION TYPE: XR chest 1V portable DATE OF EXAM: 10/07/2020 COMPARISON: 10/06/2020 HISTORY: Shortness of breath TECHNIQUE: Single frontal view of the chest is obtained. FINDINGS: Tracheostomy tube and left-sided PICC line stable. Patchy bilateral diffuse infiltrates ar e seen. No pneumothorax. Small bilateral pleural effusions. Heart size stable. IMPRESSION: Stable diffuse bilateral infiltrates.
[2020-10-07] MEDS: ALBUTEROL HFA INHALER INHALATION SCH ×4 (08:10→19:26)
[2020-10-07] MEDS: PHENYLEPHRINE 40 MG in SODIUM CHLORIDE 0.9% 250 ML IV SCH (09:21)
[2020-10-07] MEDS: CHLORHEXIDINE GLUCONATE 15 ML CUP MUCOUS MEM SCH ×2 (09:40→20:29)
[2020-10-07] MEDS: LINEZOLID 600 MG in DEXTROSE/WATER 1 300ML.BAG IVPB SCH ×2 (09:52→20:28)
[2020-10-07] MEDS: predniSONE 20 MG TAB PO SCH (09:53)
[2020-10-07] MEDS: CHOLECALCIFEROL 25 MCG (1000 IU) TABLET PO SCH (09:53)
[2020-10-07] MEDS: ASCORBIC ACID 500 MG TAB PO SCH ×2 (09:53→20:28)
[2020-10-07] MEDS: CALCIUM ACETATE 667 MG TAB PO SCH ×3 (09:53→17:02)
[2020-10-07] MEDS: ZINC SULFATE 220 MG CAP PO SCH (09:53)
[2020-10-07] MEDS: FAMOTIDINE 20 MG TAB PO SCH (09:53)
[2020-10-07] MEDS: METOPROLOL TARTRATE 12.5 MG TAB PO SCH (09:54)
[2020-10-07] MEDS: ATORVASTATIN 80 MG TAB PO SCH (09:54)
[2020-10-07] MEDS: ASPIRIN 81 MG PO SCH (10:01)
[2020-10-07] MEDS: AMIODARONE 100 MG TAB PO SCH ×2 (10:01→20:29)
--- NOTE | 2020-10-07 10:10 | P.PN ---
Subjective Patient is seen in follow-up for acute kidney injury. He is status post tracheostomy and PEG tube placement. No significant change in mentation. Patient tested positive for coronavirus. Also on antibiotics for MRSA pneumonia. Remains oliguric. Off vasopressors. Started on hemodialysis October 06. Receiving tube feeding. Vital signs: Stable. HEENT: Tracheostomy noted. EXTREMITITES: 1+ edema. Objective - Vital Signs Vital signs: Vital Signs Temp 98.2 F 10/07/20 08:00 Pulse 72 10/07/20 09:00 Resp 36 H 10/07/20 09:00 BP 135/56 10/07/20 07:00 Pulse Ox 89 L 10/07/20 09:00 Intake & Output 10/06/20 10/07/20 10/07/20 18:59 06:59 18:59 Intake Total 143 913 122 Output Total 35 1105 10 Balance 108 -192 112 Weight 109.9 kg 110.9 kg Intake: IV 143 493 26 .9 110 110 20 Cefepime 1 gm In Sodium 50 Chloride 0.9% 50 ml @ 12. 5 mls/hr IVPB Q12HR [facility] Rx#:[id number] Linezolid 600 mg In 300 Dextrose/Water 1 300ml. bag @ 150 mls/hr IVPB Q12HR [facility] Rx#:[id number] Normal Saline Pressure 33 33 6 bag Tube Feeding 330 66 Other 90 30 Output: Urine 35 105 10 Hemodialysis 1000 Other: Voiding Method Indwelling Catheter Indwelling Catheter ABP, PAP, CO, CI - Last Documented Arterial Blood Pressure 123/36 - Labs CBC & Chem 7: 10/07/20 05:15 10/07/20 05:15 Labs: Abnormal Lab Results - Last 24 Hours (Table) 10/07/20 10/07/20 10/07/20 Range/Units 05:15 05:15 05:15 WBC 15.5 H (3.8-10.6) k/uL RBC 2.57 L (4.30-5.90) m/uL Hgb 8.2 L (13.0-17.5) gm/dL Hct 24.3 L (39.0-53.0) % RDW 17.0 H (11.5-15.5) % Plt Count 116 L (150-450) k/uL Neutrophils # 14.9 H (1.3-7.7) k/uL Lymphocytes # 0.3 L (1.0-4.8) k/uL ABG pH (7.35-7.45) ABG pCO2 (35-45) mmHg ABG pO2 (83-108) mmHg ABG O2 Saturation (94-97) % Sodium 131 L (137-145) mmol/L Carbon Dioxide 21 L (22-30) mmol/L BUN 124 H* (9-20) mg/dL Creatinine 3.53 H (0.66-1.25) mg/dL POC Glucose (mg/dL) (75-99) mg/dL Calcium 7.6 L (8.4-10.2) mg/dL Phosphorus 6.9 H (2.5-4.5) mg/dL AST 188 H (17-59) U/L ALT 272 H (4-49) U/L Total Protein 4.4 L (6.3-8.2) g/dL Albumin 2.2 L (3.5-5.0) g/dL 10/07/20 10/07/20 Range/Units 05:17 05:19 WBC (3.8-10.6) k/uL RBC (4.30-5.90) m/uL Hgb (13.0-17.5) gm/dL Hct (39.0-53.0) % RDW (11.5-15.5) % Plt Count (150-450) k/uL Neutrophils # (1.3-7.7) k/uL Lymphocytes # (1.0-4.8) k/uL ABG pH 7.22 L (7.35-7.45) ABG pCO2 53 H (35-45) mmHg ABG pO2 70 L (83-108) mmHg ABG O2 Saturation 91.9 L (94-97) % Sodium (137-145) mmol/L Carbon Dioxide (22-30) mmol/L BUN (9-20) mg/dL Creatinine (0.66-1.25) mg/dL POC Glucose (mg/dL) 112 H (75-99) mg/dL Calcium (8.4-10.2) mg/dL Phosphorus (2.5-4.5) mg/dL AST (17-59) U/L ALT (4-49) U/L Total Protein (6.3-8.2) g/dL Albumin (3.5-5.0) g/dL Microbiology - Last 24 Hours (Table) 10/02/20 12:20 Blood Culture - Preliminary Blood No Growth after 96 hours Assessment and Plan Plan: Assessment: 1. Acute kidney injury secondary to ATN secondary to septic shock. Oliguric. Diuretic unresponsive. Baseline creatinine near 1. No hydronephrosis and kidney ultrasound. Started on hemodialysis October 06. 2. MRSA pneumonia maintained on antibiotics. 3. Acute hypoxic respiratory failure secondary to quit 19 pneumonitis. Status post tracheostomy and PEG tube placement this admission. 4. Hypernatremia from lack of oral water intake. Resolved. Now hyponatremic, hypervolemic. 5. A. fib with RVR. On oral amiodarone. 6. Shock, Now off vasopressors. 7. Acute blood loss anemia. Status post blood transfusion this admission. Also received IV DDAVP this admission. 8. Hyperphosphatemia secondary to acute kidney injury. Maintained on PhosLo. 9. Volume overload. No improvement in urine output with IV Lasix. Plan: Second treatment of hemodialysis today. Plan for another treatment tomorrow. Stop IV Lasix. Continue to monitor renal function and urine output.
[2020-10-07] MEDS: CEFEPIME 1 GM in SODIUM CHLORIDE 0.9% 50 ML IVPB SCH ×2 (10:14→20:28)
--- NOTE | 2020-10-07 11:11 | P.PN ---
Subjective Progress Note Date: 10/07/20 Principal diagnosis: Acute kidney injury, need for hemodialysis catheter She was seen in the ICU, he remains nonresponsive, with tracheostomy on mechanical ventilation. Yesterday he underwent a right common femoral and per her hemodialysis catheter placement. He underwent hemodialysis yesterday, he is scheduled again today and for tomorrow. Objective - Vital Signs Vital signs: Vital Signs Temp 98.2 F 10/07/20 08:00 Pulse 86 10/07/20 08:00 Resp 32 H 10/07/20 08:00 BP 135/56 10/07/20 07:00 Pulse Ox 97 10/07/20 08:00 Intake & Output 10/06/20 10/07/20 10/07/20 18:59 06:59 18:59 Intake Total 143 913 122 Output Total 35 1105 10 Balance 108 -192 112 Weight 109.9 kg 110.9 kg Intake: IV 143 493 26 .9 110 110 20 Cefepime 1 gm In Sodium 50 Chloride 0.9% 50 ml @ 12. 5 mls/hr IVPB Q12HR [facility] Rx#:[id number] Linezolid 600 mg In 300 Dextrose/Water 1 300ml. bag @ 150 mls/hr IVPB Q12HR [facility] Rx#:[id number] Normal Saline Pressure 33 33 6 bag Tube Feeding 330 66 Other 90 30 Output: Urine 35 105 10 Hemodialysis 1000 Other: Voiding Method Indwelling Catheter Indwelling Catheter ABP, PAP, CO, CI - Last Documented Arterial Blood Pressure 128/39 - Exam General appearance: The patient is comatose, nonresponsive, tracheostomy with mechanical ventilation HET: Head is normocephalic and atraumatic. Neck: Supple. Trachea midline. Neurological: Tracheostomy with mechanical ventilation, comatose, nonresponsive - Labs CBC & Chem 7: 10/07/20 05:15 10/07/20 05:15 Labs: Abnormal Lab Results - Last 24 Hours (Table) 10/07/20 10/07/20 10/07/20 Range/Units 05:15 05:15 05:15 WBC 15.5 H (3.8-10.6) k/uL RBC 2.57 L (4.30-5.90) m/uL Hgb 8.2 L (13.0-17.5) gm/dL Hct 24.3 L (39.0-53.0) % RDW 17.0 H (11.5-15.5) % Plt Count 116 L (150-450) k/uL Neutrophils # 14.9 H (1.3-7.7) k/uL Lymphocytes # 0.3 L (1.0-4.8) k/uL ABG pH (7.35-7.45) ABG pCO2 (35-45) mmHg ABG pO2 (83-108) mmHg ABG O2 Saturation (94-97) % Sodium 131 L (137-145) mmol/L Carbon Dioxide 21 L (22-30) mmol/L BUN 124 H* (9-20) mg/dL Creatinine 3.53 H (0.66-1.25) mg/dL POC Glucose (mg/dL) (75-99) mg/dL Calcium 7.6 L (8.4-10.2) mg/dL Phosphorus 6.9 H (2.5-4.5) mg/dL AST 188 H (17-59) U/L ALT 272 H (4-49) U/L Total Protein 4.4 L (6.3-8.2) g/dL Albumin 2.2 L (3.5-5.0) g/dL 10/07/20 10/07/20 Range/Units 05:17 05:19 WBC (3.8-10.6) k/uL RBC (4.30-5.90) m/uL Hgb (13.0-17.5) gm/dL Hct (39.0-53.0) % RDW (11.5-15.5) % Plt Count (150-450) k/uL Neutrophils # (1.3-7.7) k/uL Lymphocytes # (1.0-4.8) k/uL ABG pH 7.22 L (7.35-7.45) ABG pCO2 53 H (35-45) mmHg ABG pO2 70 L (83-108) mmHg ABG O2 Saturation 91.9 L (94-97) % Sodium (137-145) mmol/L Carbon Dioxide (22-30) mmol/L BUN (9-20) mg/dL Creatinine (0.66-1.25) mg/dL POC Glucose (mg/dL) 112 H (75-99) mg/dL Calcium (8.4-10.2) mg/dL Phosphorus (2.5-4.5) mg/dL AST (17-59) U/L ALT (4-49) U/L Total Protein (6.3-8.2) g/dL Albumin (3.5-5.0) g/dL Microbiology - Last 24 Hours (Table) 10/02/20 12:20 Blood Culture - Preliminary Blood No Growth after 96 hours Assessment and Plan Assessment: 1. Acute kidney injury status post right common femoral vein temporary hemodialysis catheter placement 2. Altered mental status 3. Coronavirus 4. MRSA pneumonia Plan: 1. Patient is status post right common femoral temporary hemodialysis catheter placement 2. Continue ICU medical management 3. Hemodialysis per recommendations from nephrology Thank you for this consultation we will be on stand by at this time, please call us back if there is future need for tunneled dialysis catheter placement The impression and plan of care has been dictated as directed. Dr. Diaz I performed a history and examination of this patient, discussed the same with the dictator. I agree with the dictator's note ,documented as a scribe. Any additional findings or plans will be noted.
--- NOTE | 2020-10-07 11:38 | P.PN ---
Subjective Progress Note Date: 10/07/20 Principal diagnosis: Acute hypoxic respiratory failure secondary to COVID-19 pneumonia and ARDS. 54-year-old white male patient who is an ex smoker, carries [id number] smoking history quit smoking 1 year ago in May, history of hypertension and gout who sees Dr. Contreras, presented to the emergency department on 08/02/2020 with complaints of worsening shortness of breath, cough, and patient was diagnosed with Covid 19 one week ago, was tested at [facility] per Dr. Contreras's order. 2 weeks ago he had symptoms of flulike illness, sore throat, shortness of breath, weakness, muscle aches which progressively became worse, and patient developed worsening shortness of breath and had difficulty breathing and ambulating at home. He was placed on Decadron [address] Contreras and he has 1-1/2 days worth left of it. Chest x-ray in the emergency department showed bilateral interstitial pneumonia. White blood cell count was 33.1, d-dimer was greater than 35.2, CO2 is 16, the rest of electrolytes were unremarkable, B1 is 35 creatinine is 1.04, plasma lactic acid is 4.5, patient was given IV fluids and lactic acid came down to 1.8, total bilirubin was 1.6, AST is 107, ALT is 48, alkaline phosphatase is 114, LDH is 5924, first troponin was 4.190, and the second one went up to 6.960. CRP is 180.3, pro-calcitonin level is 0.33, urinalysis showed 1+ protein, but no definite sign of infection, pulse ox is 86 on room air, patient has significant shortness of breath, and was placed on BiPAP support, currently with pressures of 12/6, and FiO2 of 100% on which he remains this morning, he is afebrile, hemodynamically he is stable, she was started on IV Decadron, we'll start him on intermediate dose of Lovenox 50 mg every 12 hours, CTA chest shows no evidence of pulmonary embolism, and extensive pulmonary infiltrates that are mostly interstitial consistent with severe interstitial pneumonia. Progress note dated 09/04/2020. 54-year-old male, admitted with a diagnosis of COVID 19 pneumonitis. Currently, he is on BiPAP at 12/6 and 90%. FiO2 will be dropped down to 80%. In addition, he is getting saline at 75 mL an hour. The patient's doing better today. He states that he feels better. He still short of breath with activity. I did tell him today to make sure he moves around in bed when he is laying in bed. White count 29.3, hemoglobin 14.6, hematocrit 42.7, platelet count 140,000. D- dimer greater than 34.10. Sodium 136, potassium 5.1, chlorides 105, CO2 25, anion gap 6, BUN 39, creatinine 0.9. LDH is 3965. C-reactive protein 143. Chest x-ray shows a worsening pattern of bilateral airspace disease. Progress note dated 09/05/2020. 54-year-old male, admitted with a diagnosis of COVID 19 pneumonitis. He remains on BiPAP with an FiO2 of 80%. Settings included an IPAP 12, EPAP 6. The patient states that he feels a bit better. He is getting saline at 75 mL an hour. He feels like he is breathing is improved. He does know to move about in bed. No new laboratory data today. His most recent chest x-ray was from yesterday and was reviewed. The patient's on appropriate medications. Progress note dated 09/06/2020. 54-year-old male, seen again today. The patient is on BiPAP, settings of IPAP 12, EPAP 6, and 90%. He is also getting saline at 75 mL an hour. Was admitted with a diagnosis of acute hypoxemic respiratory failure secondary to COVID 19 pneumonia. The patient feels about the same. No better or no worse. He will have a chest x-ray tomorrow. Labs are reviewed. White count 19.3, hemoglobin 15, hematocrit 43.9, and platelet count 92,000. Sodium 135, potassium 4.9, chlorides 109, CO2 20, anion gap 6, BUN 34, and creatinine 0.92. There is no recent chest x-ray to review. The patient is seen today 09/07/2020 in follow-up on the selective care unit. He is currently resting comfortably in bed. States he is doing a little better today compared to yesterday. He is still requiring BiPAP support 12/6 and 100% FiO2. Chest x-ray reveals stable bilateral lung infiltrates. Blood glucose 163. He remains on bronchodilators, vitamin supplements, dexamethasone, Lovenox. 0.9 normal saline at 75 ML's per hour. On 09/08/2020, the patient is being seen [facility]. The patient is a 54-year-old male patient with Covid 19 related pneumonia and the patient has diffuse stable by the pulmonary infiltrates. The patient remains on Decadron. The patient is also on Lovenox 40 mg subcu every 12 hours. The patient is also requiring BiPAP for respiratory support at a pressure of 12/6 cm of water and FiO2 of 100%. The patient is able to generate a tidal volume of 800 mL of the respiratory rate of 24 and a minute ventilation of 23 L. The patient Has elevated inflammatory markers and the last time the markers were checked were on 09/04/2020 with an LDH of 3965 and a CRP of 142. Levels will need to be rechecked. The d-dimer was above 34. The LDH level remains elevated at 3911. D-dimer is 24.6. The patient is also on IV fluids with normal saline at the rate of 75 mL an hour. The patient is on Decadron 6 because IV every 24 hours. The patient is also on Lovenox 40 mg subcu every 12 hours. His current BMI 31.5. On 09/09/2020, the patient is being seen for a follow-up. The patient continues to be on a BiPAP at a pressure of 12/6 cm of water with an FiO2 of 100%. The patient is awake and he requires assistance to be moved around. His tidal volume is in the order of 800 mL which is comparable to yesterday. A repeat chest x-ray was done and it shows some limited improvement in the bilateral pulmonary infiltrates. the patient remains on Decadron and the dose is currently at 60 mg IV every 12 hours. inflammatory markers are elevated with an LDH level of 3 911 and the CRP is 22.5. His d-dimer is still elevated at 24.6 and the patient is on Lovenox at a dose of 40 mg subcu every 12 hours.. On his problem continue to be the patient's hypoxemia, Covid 19 related pneumonia and global weakness. Unfortunately, the patient is unable to eat as the patient desaturates significantly was taken off the BiPAP. 09/10/2020 the patient remains BiPAP dependent at the pressure of 12/6 cm of water. His FiO2 is still 100%. He was still able to generate adequate tidal volumes while being on a BiPAP. He has had a PICC line yesterday as the patient was not meeting his caloric requirements and I was also contemplating the possibility of TPN. His chest x-ray remains unchanged with diffuse bilateral infiltrates consistent with Covid 19 related pneumonia. His blood work is showing a d-dimer of 24 from 2 days ago. Electrolytes are normal, and no new inflammatory markers. The current pulse ox is 92% on a BiPAP and the patient remains on Decadron 6 mg IV every 12 hours. 09/11/2020, the patient remains on a BiPAP at a pressure of 12/6 and FiO2 of 100%. He is quite lethargic. He is in mild degree of respiratory distress even at rest while on the BiPAP. Current pulse ox is 89%. A PICC line was inserted yesterday and the patient was also started on TPN for nutritional support knowing that he was able to eat and he was not meeting his caloric requirements. His d-dimer is 15. The patient is on Lovenox 50 mg subcu every 12 hours. The patient is also receiving Decadron 6 mg IV 12 hours. Current pulse ox is around 89%. No major changes condition since yesterday. No other new labs otherwise. His resting in bed comfortably. He is generating tidal volumes above >600cc with respiratory rate in the mid 20s. He had no signs of any fluid overload. Mentation is preserved. Looks lethargic. He is able to answer questions and following commands. No other significant issues otherwise for now. I will today's condition is essentially stable since yesterday. 09/12/2020 the patient remains on BiPAP 12/6 cm of water with an FiO2 of 100%. Condition is essentially the same and unchanged compared to yesterday. The patient is currently on a pulse ox of 94% on above-mentioned BiPAP setting. He remains on Decadron 6 mg IV every 12 hours. He also is on Lovenox 50 mg subcu every 12 hours. He has an LDH level of 5040 at a CRP of 8.2. His inflammatory markers were obtained yesterday and they were quite elevated. He is still able to generate tidal volumes above 500 and his respiratory rate currently is in the 00s for now. Chest x-ray is consistent with diffuse bilateral pulmonary infiltrates. He has a PICC line in his left upper extremity and the patient is receiving TPN for nutritional support. As mentioned, he remains weak and lethargic. He is arousable and follows commands and answering questions. 09/13/2020, the patient got transferred to the intensive care unit where the patient got intubated and placed on a mechanical ventilator. Note that the patient was maintaining relatively fine on the BiPAP and ultimately desaturates., Became more short of breath and unresponsive in the blood. Showed significant hypoxemia and he had to come in to the ICU where he was intubated and placed on a mechanical ventilator. At this point and he is sedated with propofol running at 50 mcg/kg per minute and the patient is also paralyzed with Nimbex at 3 mcg/kg per minute. He is currently on assist control mode at the rate of 32 with a tidal volume of 400 and FiO2 of 1% with a PEEP of 15. The blood gases post intubation showed a pH of 7.22 and a pCO2 of 61 and pO2 of 89. His chest x-ray showing adequate positioning of ET tube. He has diffuse bilateral pulmonary infiltrates consistent with Covid 19 related p neumonia. Peak airway pressure 38. Static pressures 34. He is well rested and paralyzed for now. His BP currently is running at 156/59 and the patient was quite hypertensive prior to his intubation. His blood pressure came up to 182/110 and currently it's more stable. Labs are still pending for now. Meanwhile, the patient remains on Decadron 6 mg IV every 12 hours. Is also on Lovenox 40 mg subcu twice a day. He was receiving TPN for nutritional support as the patient was unable to take any form of oral intake as he was very much BiPAP dependent. TPN will be discontinued and the patient will be transitioned to enteral feeding note that he is currently intubated on a mechanical venti lator. A central line was also inserted. IV fluids are running at the rate of 20 mL an hour of normal saline. TPN Is currently running at 90 mL an hour. 09/14/2020, the patient is intubated on a mechanical ventilator in the intensive care unit. The patient currently is sedated and paralyzed. Propofol is running at 40 mcg/kg per minute and the Nimbex is running at 1.8 mcg/kg per minute. He is adequately sedated and paralyzed. He is still assist-control mode of mechanical ventilation at the rate of 32 with a tidal volume of 400 and FiO2 of 100% and a PEEP of 15. His blood gases from today showed a pH of 7.29 and pCO2 of 62 and pO2 of 86. We are allowing permissive hypercapnia. The peak and static pressures today are 14 and 34 respectively. His chest x-ray from today showing diffuse bilateral pulmonary infiltrates more so in the lower lobes and there is extensive consolidation of the lower lobes bilaterally. ET tube is at the level of the aortic knob. NG tube is in place. The patient remains on Decadron and currently is at a dose of 6 mg IV every 12 hours. In terms of his blood work, his inflammatory markers show a drop in the LDH level which is down to 294 and a CRP level is down to 5.2. D-dimer from a few days ago was 15.6 and the patient remains on Lovenox at a dose of 40 mg subcu every 12 hours. His TPN has been discontinued and the patient was switched enteral feeding and the patient is currently on vital high protein at the rate of 20 mL an hour which is at goal for now. IV fluids running at 20 mL an hour. He is hemodynamically stable. His overall fluid balance has been +1.6 L over the past 24 hours. Note that this patient was intubated yesterday after failing BiPAP for several days. He was intubated on 08/12/2020. Family is aware. Patient was reevaluated today on 09/15/2020, remains intubated and mechanically ventilated. Patient is presently on assist control rate of 52 tidal volume is 400 FiO2 at 90% PEEP is 15 ABG showed a pO2 of 77 pCO2 of 64 pH of 7.30. His peak airway pressure is 47 static pressure is 43. Attempted to adjust the PEEP higher, however he static pressure was getting much higher. Hence The PEEP at 15. And I adjusted the flow rate down to 60. He is on multiple drips including Nimbex at 1.5 mcg/kg/minute. he is on propofol at 40 mcg/kg per minute. Patient remains on permissive hypercapnia with a pCO2 of 64 pH of 7.30. Today considering the patient is on Nimbex I added fentanyl and 0.25 mcg/kg/h. And I switch his Decadron to Solu-Medrol at 60 mg IV push every 6 hours. Patient was intubated on 09/13 has been in the ICU since 09/13 he was actually admitted on 09/02 feeding gomez he is on HP20 mL per hour. Patient is sedated and paralyzed. Chest x-ray continues to show bilateral patchy infiltrates. Not much of a change noted. Patient was reevaluated today on 09/16/2020, remains in the ICU, intubated and mechanically ventilated. He is now on ventilator settings assist control rate of 3 to tell volume is 400 FiO2 80% and PEEP of 16. ABG showed a pO2 of 77 pCO2 of 68 pH of 7.28. Patient remains on propofol at 40, Nimbex at 1.2 fentanyl 0.5, IV fluid at KVO. FiO2 was decreased today from on the percent to 80%, and increase the flow rate to 65 L/m. Chest x-ray is showing no significant change. Patient remains fully sedated and paralyzed. He is on tube feeding using vital HP at 20 mL per hour. Electrolytes were reviewed potassium is 5.4. BUN is 55 creatinine 1.1, hence increase his IV fluid rate to 100 mL per hour. Bit of leukocytosis noted today, but improved compared to yesterday WBC count is 19.5 hemoglobin is 13.4. LDH continues on the rise to 081, and C-reactive protein is better at 1.5. Patient was reevaluated today on 09/17/2020, remains in the ICU, intubated mechanically ventilated, sedated, paralyzed, his ventilator settings are assist control rate of 32, tidal volume is 400 FiO2 65% and PEEP remains at 16. Peak airway pressure is 37, static pressures 27, chest x-ray continues to show by lateral patchy infiltrates consistent with COVID-19 pneumonia. ABG showed a pO2 of 64 pCO2 of 69 pH of 7.26. Hence his tidal volume was increased up to 420 7400. Patient will remain sedated. No plans to wean or extubated anytime soon. Patient remains on propofol at 40 Nimbex at 2 fentanyl 0.5 IV fluid at 100 mL per hour, he is on tube feeding 37/37 vital HP. Electrolytes are normal BUN is 58 creatinine is 1.08. Improving. LDH was 2080 yesterday. And C-reactive protein 1.5 Patient was reevaluated today on 09/18/2020, remains in the ICU intubated mechanically ventilated and sedated and paralyzed. Still requiring relatively high FiO2 of 65 and high PEEP of 16. ABG is marginal. He is on assist control rate of 34 tidal volume 420 FiO2 65% PEEP of 16. ABG showed a pO2 of 64 pCO2 of 61 pH of 7.32. Patient remains on propofol at 40 Nimbex at 0.2 and fentanyl at 0.5. Remains on tube feeding/vital HP at 37 mL per hour. Plan today to give the patient at least and Nimbex holiday if possible. Chest x-ray is basically unchanged. And his overall condition is about the same. WBC count is 14.9 hemoglobin is 12. Electrolytes showed elevated sodium of 146 hence the patient will be given free water and potassium of 5.6 we'll give a dose of Kayexalate. Renal profile showed a BUN of 54 creatinine 0.97, improving. Patient was reevaluated today on 09/19/2020, remains intubated and sedated, he is also paralyzed, remains on assist control rate of 32, tidal volume is 420 FiO2 65% and PEEP of 16. ABG showed a pO2 of 72 pCO2 of 63 pH of 7.32. His peak ai rway pressure is in the high 30s and plateau pressure is 31. Patient remains on IV fluid at 100 mL/h he is on Nimbex at 3, fentanyl at 1 on propofol at 40. He is on tube feeding using vital HP at goal. Today considering his sodium being elevated we have transitioned his IV fluids from 0.9 normal saline to D5W at 100 mL per hour and the patient will be receiving free water flushes via nasogastric tube. Chest x-ray is basically about the same, continues show by basilar patchy infiltrates, consistent with COVID-19 pneumonia, not much of a change is noted in the last couple of days. Hemodynamically gomez, the patient is stable, not requiring any pressors. Reevaluated today on 09/20/2020, patient remains intubated and sedated and mechanically ventilated and paralysis. On assist control rate of 32 tidal volume 420 FiO2 60% PEEP of 16. ABG showed a pO2 of 69 pCO2 of 62 pH of 7.32. Chest x-ray is basically about the same continues to by basilar patchy infiltrates. Remains on propofol at 20 Nimbex at 3 fentanyl at 1 D5W at 100 mL per hour. Remains on tube feeding. He is also receiving free water flushes. He is on enteral feeding using vital HP at 40 mL per hour. CBC is relatively normal hemoglobin is 10.7. Electrolytes sodium remains elevated at 145, however improving from 149 yesterday. BUN is 51 creatinine 1.03. Calcium is 7.9. No inflammatory markers were ordered today. Patient was reevaluated today on 09/21/2020, remains in the ICU, intubated and mechanically ventilated, sedated and paralyzed. Patient is on assist control rate of 32 tidal volume 420 FiO2 60% and PEEP of 16. ABG showed a pO2 of 65 pCO2 of 62 pH of 7.32. Remains on propofol at 25, Nimbex S3 fentanyl at 1 D5W at 100 mL per hour, and vital HP 40/40. Chest x-ray is showing slight improvement in his bilateral patchy infiltrates. Patient has not had a bowel movement in almost over a week, hence we'll start the patient on lactulose and Reglan. Today I have instructed the nurses to consider pronating the patient at least try presently position and hopefully address Nimbex holidays. However the patient is to be prone doubt other chemo on Nimbex. His IV fluid remains D5W and I cut it down to 50 mL per hour. After evaluating the patient, and patient was off Nimbex for a very short period of time developed atrial fibrillation with RVR, Lasix the patient on amiodarone as per protocol, bolused with amiodarone. And he had to go back on Nimbex. 2020, patient is being seen in follow-up in the intensive care units. Neurologically unchanged. Occasionally opens up his eyes and blinks. Does not follow any commands. Overall neurologic examination is the same as yesterday without any interval progression or worsening. Meanwhile, the patient is on a mechanical ventilator. As stated earlier, he is a tracheostomy tube. Current vent settings include an assist-control mode at the rate of 32 with a tidal volume of 420 and a PEEP is a 13 with an FiO2 of 60%. Chest x-ray showing diffuse breath and pulmonary infiltrates with areas of consolidation. Blood gases from today showed a pH of 7.24 with a pCO2 of 49 and pO2 of 129. Sputum was positive for MRSA and the patient is currently on Zyvox. The patient is afebrile. His white cell count is currently at 23.9. In terms of his COVID-19 related pneumonia, the patient is on steroids and the patient is receiving 40 mg by mouth daily. Antibiotic coverage is currently with a combination of Zyvox and cefepime. Another issue is the tracheostomy stoma where the patient has a large incision on his back and the stitches have already fallen apart and the patient has a dehisced wound. The stoma itself is intact. The skin around it is open and there is some liquidy material accumulating and pulling in that area. Appropriate dressing is applied to the general surgeon will be informed of this ongoing problem. Meanwhile, the patient is also developing progressive worsening renal function. Creatinine is up to 3.0. His overall urine output is no order of less than 10 mL an hour and her net fluid balance for yesterday has been +2.5 L. As such, the findings on the case and the plan is to proceed with hemodialysis with the next 24 hours especially of his lymphoma in his urine output and renal function. He is currently on Lasix and he is receiving Lasix 80 mg on a daily basis. No major electrode disturbance for now. He is receiving enteral feeding for nutritional support. Has a PEG tube in place. He has diffuse swelling all 4 extremities. As mentioned, he has a ongoing low- grade mucosal lesions/be bleed from his tongue and his lips. His hemoglobin is up to 6.6 and the patient is currently receiving a unit of packed RBC. No clear evidence of any GI bleed. He has a fecal management system in place. No diarrhea. Meanwhile, his cardiac rhythm and remained sinus. No episodes of A. fib/flutter since yesterday. He is currently on oral amiodarone. He is also on metoprolol and the dose has been reduced and infected was held as the patient is still requiring Santosh-Synephrine for hemodynamic support. His current Santosh- Synephrine dose is at 0.5 mg/kg/m and this could be weaned off. IV fluid maint enance is normal saline at the rate of 10 mL an hour. Patient was reevaluated today on 10/06/2020, patient remains in the ICU, intubated and mechanically ventilated, he has had a tracheostomy placed and he had a PEG tube placed. Patient has been off sedation for over a week, however his mental status does not seem to be improving much. Being followed by neurology. He is on assist control rate of 32, tidal volume is 420 FiO2 60% and rate of 13. FiO2 was decreased down to 55% after reviewing his ABG. ABG showed a pO2 of 82 pCO2 of 49 pH of 7.24 hence his FiO2 was decreased down to 55%. Chelsi rico is still being considered for hemodialysis. He is quite edematous, and he has very poor urine output. In spite of diuretics. Nephrology is addressing the issue of hemodialysis, and he is yet to be seen by vascular surgery for dialysis catheter placement. His IV fluid is at 10 mL/h. Patient has been in the hospital for 33 days, patient had a trach and PEG on 09/22 chest x-ray continues to show bilateral infiltrates. And again he is oliguric. Patient is growing MRSA around the site of the tracheostomy and around the PEG tube. He is on Zyvox. Patient is off Santosh-Synephrine. His enteral feeding has been on hold, however I see no reason to hold his enteral feeding, and we will restart his enteral feeding slowly. Via PEG tube. Continues to have some ongoing mucosal lesions or bleeding from the mouth and tongue as well as the lips., Hemoglobin today is 7.5. WBC count is 17.1. BUN is 149 creatinine is 3.84, liver enzymes are elevated with AST of 211 ALT of 266 and alkaline phosphatase of 128. Patient was reevaluated today on 10/07/2020, remains intubated and mechanically ventilated, however the patient has a tracheostomy in place, and a PEG tube in place. Remains off sedation, remains unresponsive to any stimuli. Patient had dialysis yesterday, and 1 L of fluid was removed. His ventilator settings are assist control rate of 3 2001 is 420 FiO2 50% and PEEP of 13. Peak airway pressure is 38 and plateau pressure is 32. Hence his rate was increased to 36. Based on the fact that his ABG continues to show some respiratory and metabolic acidosis his pO2 is 70 pCO2 is 53 pH of 7.22. IV fluid is at KVO. Patient again remains off sedation and he remains comatose. Tube feeding is at goal. Patient is still receiving free water flushes. Chest x-ray no major change is noted continues to show bilateral infiltrates. WBC count today is 15.5 hemoglobin is 8.2 ABG showed a pO2 of 70 pCO2 of 53 pH of 7.22 BUN today is down to 124 creatinine is down to 3.53, liver enzymes remain borderline elevated. We'll request an ammonia level since his liver enzymes remain elevated. Patient remains on Zyvox and cefepime, the secretions around the trach were methicillin-resistant staph aureus positive and the Gram stain as well as culture from the area around the PEG tube is also positive for MRSA. Hence we'll continue Zyvox. Objective - Vital Signs Vital signs: Vital Signs Temp 98.2 F 10/07/20 08:00 Pulse 67 10/07/20 10:00 Resp 36 H 10/07/20 10:00 BP 135/56 10/07/20 07:00 Pulse Ox 91 L 10/07/20 10:00 Intake & Output 10/06/20 10/07/20 10/07/20 18:59 06:59 18:59 Intake Total 143 913 214 Output Total 35 1105 20 Balance 108 -192 194 Weight 109.9 kg 110.9 kg Intake: IV 143 493 52 .9 110 110 40 Cefepime 1 gm In Sodium 50 Chloride 0.9% 50 ml @ 12. 5 mls/hr IVPB Q12HR [facility] Rx#:[id number] Linezolid 600 mg In 300 Dextrose/Water 1 300ml. bag @ 150 mls/hr IVPB Q12HR [facility] Rx#:[id number] Normal Saline Pressure 33 33 12 bag Tube Feeding 330 132 Other 90 30 Output: Urine 35 105 20 Hemodialysis 1000 Other: Voiding Method Indwelling Catheter Indwelling Catheter ABP, PAP, CO, CI - Last Documented Arterial Blood Pressure 102/39 - Exam GENERAL EXAM: Revealed 54-year-old male intubated and mechanically ventilated, completely off sedation and paralysis. HEAD: Normocephalic. Atraumatic, tracheostomy is intact. Minimal. Purulent secretions noted around the tracheostomy site. EYES: PERRLA, EOMI, nonicteric.. THROAT: Multiple superficial erosions noted in the mucosa of the mouth, tongue, and evidence of recent bleeding from these superficial ulcerations. Clearly has mucositis. NECK: No masses, no JVD. CHEST: No chest wall deformity. LUNGS: Crackles, mostly at the bases. Scattered rhonchi are noted. CVS: S1 and S2 normal with no audible murmur, regular rhythm. ABDOMEN: Soft nontender no megaly no rebound no guarding. PEG tube is intact. Purulent secretions around the PEG tube. Musculoskeletal: No deformities. Did not assess range of motion. SKIN: No rashes CENTRAL NERVOUS SYSTEM: Awake, but does not follow any instructions. Opens eyes only. EXTREMITIES: 2+ bipedal edema, no cyanosis. Psychiatric: Unable to assess. - Labs CBC & Chem 7: 10/07/20 05:15 10/07/20 05:15 Labs: Abnormal Lab Results - Last 24 Hours (Table) 10/07/20 10/07/20 10/07/20 Range/Units 05:15 05:15 05:15 WBC 15.5 H (3.8-10.6) k/uL RBC 2.57 L (4.30-5.90) m/uL Hgb 8.2 L (13.0-17.5) gm/dL Hct 24.3 L (39.0-53.0) % RDW 17.0 H (11.5-15.5) % Plt Count 116 L (150-450) k/uL Neutrophils # 14.9 H (1.3-7.7) k/uL Lymphocytes # 0.3 L (1.0-4.8) k/uL ABG pH (7.35-7.45) ABG pCO2 (35-45) mmHg ABG pO2 (83-108) mmHg ABG O2 Saturation (94-97) % Sodium 131 L (137-145) mmol/L Carbon Dioxide 21 L (22-30) mmol/L BUN 124 H* (9-20) mg/dL Creatinine 3.53 H (0.66-1.25) mg/dL POC Glucose (mg/dL) (75-99) mg/dL Calcium 7.6 L (8.4-10.2) mg/dL Phosphorus 6.9 H (2.5-4.5) mg/dL AST 188 H (17-59) U/L ALT 272 H (4-49) U/L Total Protein 4.4 L (6.3-8.2) g/dL Albumin 2.2 L (3.5-5.0) g/dL 10/07/20 10/07/20 Range/Units 05:17 05:19 WBC (3.8-10.6) k/uL RBC (4.30-5.90) m/uL Hgb (13.0-17.5) gm/dL Hct (39.0-53.0) % RDW (11.5-15.5) % Plt Count (150-450) k/uL Neutrophils # (1.3-7.7) k/uL Lymphocytes # (1.0-4.8) k/uL ABG pH 7.22 L (7.35-7.45) ABG pCO2 53 H (35-45) mmHg ABG pO2 70 L (83-108) mmHg ABG O2 Saturation 91.9 L (94-97) % Sodium (137-145) mmol/L Carbon Dioxide (22-30) mmol/L BUN (9-20) mg/dL Creatinine (0.66-1.25) mg/dL POC Glucose (mg/dL) 112 H (75-99) mg/dL Calcium (8.4-10.2) mg/dL Phosphorus (2.5-4.5) mg/dL AST (17-59) U/L ALT (4-49) U/L Total Protein (6.3-8.2) g/dL Albumin (3.5-5.0) g/dL Microbiology - Last 24 Hours (Table) 10/02/20 12:20 Blood Culture - Preliminary Blood No Growth after 96 hours Assessment and Plan Assessment: Impression: Acute hypoxic respiratory failure secondary to acute COVID-19 pneumonia with ARDS. Patient received toci, and convalescent plasma Failure to wean, required tracheostomy and PEG tube placement on 09/22. MRSA pneumonia is suspected. Patient is presently on Zyvox. Unresponsive, comatose, EEG consistent with acute toxic metabolic encephalopathy without any seizure activity. Non-ST elevation myocardial infarction Acute kidney injury with worsening renal failure, presently on hemodialysis since yesterday. Started hemodialysis on 10/06/2020. Electrolytes imbalance, improving. And being addressed accordingly including hyponatremia and hyperkalemia Acute on chronic anemia, possible GI blood losses, as well as ongoing phlebotomy with blood loss. Elevated inflammatory markers secondary to above Benign essential hypertension Former smoker. New onset atrial fibrillation with RVR. Requiring treatment with amiodarone. Presently in normal sinus rhythm. Recommendation:. Continue present supportive care measures Continue hemodialysis. Continue aranesp Continue ventilatory support, and tracheostomy care. Increased her rate to 36 today. Continue albuterol. Continue amiodarone. Continue GI prophylaxis. Resume enteral feeding slowly. Via PEG tube Continue steroids. Prednisone 30 mg daily. Hold anticoagulation therapy for now. Patient received convalescent plasma and toci Continue to monitor electrolytes. Continue Zyvox. Continue cefepime. Continue to daily assessment of neurologic status. Continue GI and DVT prophylaxis Patient remains critically ill, critical care time is over 30 minutes. Time with Patient: Greater than 30
[2020-10-07] MEDS: ARTIFICIAL TEARS-HYPROMELLOSE DROPS 15 ML BTL BOTH EYES SCH ×4 (11:40→21:15)
[2020-10-07 11:41] LABS: Glucose,Whole Blood 118 mg/dL (75-99)
--- NOTE | 2020-10-07 12:05 | P.PN ---
Subjective Progress Note Date: 10/07/20 CHIEF COMPLAINT: COVID-19 pneumonia HISTORY OF PRESENT ILLNESS: Patient is in the ICU and is intubated. He is status post tracheostomy and PEG tube placement. Patient is tolerating tube feedings. No residual reported. Patient started hemodialysis yesterday and is scheduled for hemodialysis again today. Patient has MRSA in sputum. Had breakdown of the skin at tracheostomy site. Aquacel silver is being applied to trach site. Afebrile WBC 15.5 hemoglobin 8.2 PHYSICAL EXAM: VITAL SIGNS: Reviewed. GENERAL: Well-developed in no acute distress. HEENT: Moist buccal mucosa. Head is atraumatic, normocephalic. Tracheostomy site with skin breakdown ABDOMEN: Soft. Nondistended. Nontender. PEG tube site clean dry and intact NEUROLOGIC: Intubated ASSESSMENT: 1. Acute hypoxic respiratory failure due to COVID-19 pneumonia with prolonged mechanical ventilation status post tracheostomy placement 2. Moderate protein calorie malnutrition status post PEG tube placement PLAN: -Continue tube feedings -Continue local wound care to tracheostomy site. Apply Aquasol Silver every other day -Continue supportive care -Continue ICU management [employer] note has been reviewed by physician. Signing provider agrees with the documented findings, assessment, and plan of care. Objective - Vital Signs Vital signs: Vital Signs Temp 98.2 F 10/07/20 08:00 Pulse 71 10/07/20 11:00 Resp 36 H 10/07/20 11:00 BP 135/56 10/07/20 07:00 Pulse Ox 92 L 10/07/20 11:00 Intake & Output 10/06/20 10/07/20 10/07/20 18:59 06:59 18:59 Intake Total 143 913 260 Output Total 35 1105 20 Balance 108 -192 240 Weight 109.9 kg 110.9 kg Intake: IV 143 493 65 .9 110 110 50 Cefepime 1 gm In Sodium 50 Chloride 0.9% 50 ml @ 12. 5 mls/hr IVPB Q12HR [facility] Rx#:[id number] Linezolid 600 mg In 300 Dextrose/Water 1 300ml. bag @ 150 mls/hr IVPB Q12HR [facility] Rx#:[id number] Normal Saline Pressure 33 33 15 bag Tube Feeding 330 165 Other 90 30 Output: Urine 35 105 20 Hemodialysis 1000 Other: Voiding Method Indwelling Catheter Indwelling Catheter ABP, PAP, CO, CI - Last Documented Arterial Blood Pressure 134/53 - Labs CBC & Chem 7: 10/07/20 05:15 10/07/20 05:15 Labs: Abnormal Lab Results - Last 24 Hours (Table) 10/07/20 10/07/20 10/07/20 Range/Units 05:15 05:15 05:15 WBC 15.5 H (3.8-10.6) k/uL RBC 2.57 L (4.30-5.90) m/uL Hgb 8.2 L (13.0-17.5) gm/dL Hct 24.3 L (39.0-53.0) % RDW 17.0 H (11.5-15.5) % Plt Count 116 L (150-450) k/uL Neutrophils # 14.9 H (1.3-7.7) k/uL Lymphocytes # 0.3 L (1.0-4.8) k/uL ABG pH (7.35-7.45) ABG pCO2 (35-45) mmHg ABG pO2 (83-108) mmHg ABG O2 Saturation (94-97) % Sodium 131 L (137-145) mmol/L Carbon Dioxide 21 L (22-30) mmol/L BUN 124 H* (9-20) mg/dL Creatinine 3.53 H (0.66-1.25) mg/dL POC Glucose (mg/dL) (75-99) mg/dL Calcium 7.6 L (8.4-10.2) mg/dL Phosphorus 6.9 H (2.5-4.5) mg/dL AST 188 H (17-59) U/L ALT 272 H (4-49) U/L Total Protein 4.4 L (6.3-8.2) g/dL Albumin 2.2 L (3.5-5.0) g/dL 10/07/20 10/07/20 10/07/20 Range/Units 05:17 05:19 11:39 WBC (3.8-10.6) k/uL RBC (4.30-5.90) m/uL Hgb (13.0-17.5) gm/dL Hct (39.0-53.0) % RDW (11.5-15.5) % Plt Count (150-450) k/uL Neutrophils # (1.3-7.7) k/uL Lymphocytes # (1.0-4.8) k/uL ABG pH 7.22 L (7.35-7.45) ABG pCO2 53 H (35-45) mmHg ABG pO2 70 L (83-108) mmHg ABG O2 Saturation 91.9 L (94-97) % Sodium (137-145) mmol/L Carbon Dioxide (22-30) mmol/L BUN (9-20) mg/dL Creatinine (0.66-1.25) mg/dL POC Glucose (mg/dL) 112 H 118 H (75-99) mg/dL Calcium (8.4-10.2) mg/dL Phosphorus (2.5-4.5) mg/dL AST (17-59) U/L ALT (4-49) U/L Total Protein (6.3-8.2) g/dL Albumin (3.5-5.0) g/dL Microbiology - Last 24 Hours (Table) 10/02/20 12:20 Blood Culture - Preliminary Blood No Growth after 96 hours
[2020-10-07 12:09] LABS: Glucose,Whole Blood 97 mg/dL (75-99)
[2020-10-07 14:07] VITALS: BMI 37.1
--- NOTE | 2020-10-07 14:54 | P.PN ---
Subjective Progress Note Date: 10/07/20 This is a 54-year-old male who was recently admitted with acute hypoxic respiratory failure secondary to COVID-19 pneumonia and is being closely monitored. Continues to remain on mechanical ventilation currently sedated. Patient has had prolonged hospitalization with unsuccessful attempts at weaning and surgery has been consulted for tracheostomy along with PEG tube placement. Patient was on D5 water for hypernatremia and will be discontinued. Tube feedings on hold for surgery today and will resume once PEG tube is okay for use. Per nursing staff patient has also been in the prone position since yesterday evening into this morning and tolerated. Amiodarone has also been discontinued as patient is currently bradycardic. Pulmonary bankruptcy legal assistant following closely. Patient is maintained on sliding scale and will monitor closely once tube feedings have resumed. 09/23/2020 Patient is seen in follow-up continues to be closely monitored in the ICU maintained on mechanical vent via tracheostomy as he underwent trach and PEG tube placement yesterday with surgery. Tube feedings to resume via PEG tube this afternoon after clearance from surgery. Chest x-ray today shows bilateral multifocal and confluent opacities left greater than right consistent with COVID-19 again redemonstrated with no significant change from yesterday. Pulmonary also following. White blood count at 20.9, hemoglobin is 11.3, current sodium is 138 with a potassium of 5.2, and creatinine is 0.83. 09/24/2020 Patient continues to be intubated and sedated in the ICU status post tracheostomy and PEG tube placement. Tube feedings have been resumed and patient is tolerating. Chest x-ray today shows continued patchy airspace infiltrates although there is interval improvement noted. Pulmonary following closely. White blood count slightly elevated at 23.2 patient is maintained on IV Solu-Medrol every 6 hours. Sodium 143 with a potassium of 5.0 and current creatinine is 0.84. 09/25/2020 Patient continues to be in the ICU on mechanical ventilation intubated via tracheostomy and continued on sedation and is being closely monitored. PEEP being titrated down slowly and patient continues on Nimbex along with propofol and fentanyl. White blood count on a downward trend 17.2 with hemoglobin of 9.7, sodium is 144 with a potassium of 4.9 and current creatinine is 0.95. FiO2 remains at 50 and maintaining 87 and 90% oxygen saturation. Social work also following and discussion with family about possible LTAC placement. 09/26/2020 Patient is seen in follow-up continues to be closely monitored in the ICU. Patient is off of Nimbex since yesterday and tolerating. Patient continues to be sedated and pulmonary bankruptcy legal assistant following closely and working on weaning FiO2 as tolerated. FiO2 has been decreased to 50 and PEEP continues at 17. Patient's calcium was low on this morning's labs at 4.9 and was given a dose of calcium gluconate. Patient labs this morning show sodium of 143 with a potassium of 3.5 and creatinine is 0.57, LDH is 1027, CRP is 8.7 and magnesium is 1.9. Continue with electrolyte replacement per protocol. His repeat potassium this afternoon as showing 6.0 may potentially be a hemolyzed sample and will redraw and monitor closely. Patient did receive that Braden supplementation from this morning's labs as it was 3.5. 09/27/2020 The patient remains on the mechanical ventilator. His vent settings include assist control mode, rate 32, tidal volume 420, FiO2 50%, and PEEP of 17. Arterial blood gases show pO2 61, pCO2 56, pH 7.38. The patient's currently on propofol at 35 mcg/kg/m, and fentanyl 1.5 mcg/kg per hour. The patient's getting saline at KVO, and tube feedings with Nepro at 25 mL an hour which is goal. Chest x-ray is stable. Shows bilateral diffuse infiltrates. White count 18.1, he will 9.7, hematocrit 30.2, platelet count 175,000. D-dimer is 1.27. Sodium 144, potassium 4.1, chlorides 118, CO2 27, BUN 42, creatinine 0.78. LDH is 1528, and C-reactive protein is 13.5. 09/28/2020 patient is seen in follow-up in the intensive care unit. HRemains intubated and on mechanical ventilator. He had undergone tracheostomy tube and PEG tube placements on 09/22/2020. He is sedated on propofol at 40 mcg/kg/m. Fentanyl at 1.5 mcg/mg per hour. 0.9 normal saline at KVO. He is being nourished with Nepro at 25 ML's per hour which is goal. Free water flushes at 30 MLS every 4 hours. He's had daily interruption of sedation. Once off sedation his blood pressure goes up to 200 systolic range. Today's chest x-ray reveals stable bilateral diffuse interstitial infiltrates. He has received 1 unit of convalescent plasma. Blood cultures reveal no growth. White count 15.5. Hemoglobin 8.8. Platelets 160. Sodium 142. Potassium 4.9. Creatinine 0.86. He has continued on Solu-Medrol, Lovenox, vitamin supplements. Prognosis remains guarded. 09/29/2020 Patient is seen in follow-up continues to be in the ICU intubated and sedated. Patient is off Nimbex with attempts at sedation holiday and having rebound blood pressure issues and placed on labetalol. Continues on IV Solu-Medrol along with vitamin and zinc supplements and Lovenox and will continue. FiO2 down to 50 and PEEP of 13. Pulmonary following closely. Patient continues with intermittent low-grade temps and elevated white count. D-dimer today is 1.57, sodium is 145, potassium is 4.6, current creatinine is 0.86. Inflammatory markers are elevated along with CRP and probe calcitonin. 09/30/2020 Patient is seen in follow-up currently remains in the ICU intubated and off sedation but no activity noted. Patient is not responding to commands and CT of the brain is ordered showing age-related atrophic and chronic small vessel ischemic change without any acute intracranial process along with the neck and chest CT continues to show groundglass opacities. Patient is off of labetalol and continues on that now. Propofol has been discontinued. Steroids transition to oral and given via PEG tube and continues on tube feedings which he is tolera ting. White blood count continues to be elevated at 21.7 and hemoglobin is 10.3, sodium is 147 and will increase free water flushes with tube feedings and monitor sodium closely. Potassium is 4.5. 10/01/2020 Patient continues to be closely monitored in the ICU and maintained off of sedation and remains unresponsive with very minimal brainstem reflexes otherwise not responding to painful stimulation or voice. Continue with free water flushes and monitor hypernatremia closely as sodium was elevated at 148 today. Continue with half normal saline at 75 ML per hour. D-dimer elevated at 3.48 today. White blood count also 22.7, hemoglobin is 9.6, creatinine elevated at 1.31, and sodium is 4.7. LDH slightly trending down at 2244 also CRP is up at 20.5. Chest x-ray today shows patchy. Hilar and basilar infiltrates persist without significant change. Will have neurology reevaluate the patient as he continues to be unresponsive and off sedation for 48 hours now. 10/02/2020 Patient is seen in follow-up continues to be closely monitored in the ICU and also continues off sedation and continues to be unresponsive. EEG was done which was abnormal showing no epileptiform activity and some background slowing of at least moderate degree suggestive of generalized cerebral dysfunction as can be seen in toxic metabolic encephalopathy or due to diffuse structural brain abnormalities. Patient's sodium is 144 today with a potassium of 4.6 and creatinine worsening at 2.08 and continues on half normal saline. White blood count elevated at 25.4 and continues with low-grade intermittent temps and showing MRSA in the sputum and was started on Zyvox. Patient also having some possible SVT and was given adenosine although appears to be atrial flutter and Cardizem was initiated although having low blood pressures which was discontinued. Patient is now on amiodarone drip along with heparin drip and cardiology following. 10/03/2020 Patient is seen this morning with bankruptcy legal assistant also at the bedside and continues to be closely monitored in the ICU. Continues off of all sedatives and continues to be unresponsive with no activity noted. Multiple medical consultations following including neurology, cardiology, pulmonary, and nephrology now consulted as patient has worsening creatinine and is currently 2.39 with a BUN of 105. Sodium improved at 138 and potassium is 4.5. Liver f unctions also worsening. Patient remains on a heparin drip and amiodarone has been transitioned oral amiodarone. Continues on oral prednisone and vitamin and zinc supplements and will continue. Patient's IV fluids are 0.45 at 75 ML per hour. Will await neuro consult. Patient has generalized edema bilateral upper and lower extremities and being started on IV Lasix Need to discuss with family about CODE STATUS as prognosis remains extremely guarded. 10/04/2020 Patient has a extensive prolonged hospitalization for more than 30 days patient presently has tracheostomy and PEG tube in place patient has secondary bacterial pneumonia with the staph aureus and patient is on linezolid did patient has very minimal or no urine output continues to have renal dysfunction and worsening creatinine nephrology is following the patient and patient was started on Lasix. She and is presently on ventilatory support assist-control ventilation set up respiratory 22 titer volume 420 people 13 FiO2 of 70% patient has been off sedation in spite of which patient is unresponsive and comatose brainstem re flexes are present no particle function EEG showed diffuse encephalopathy. Computed tomography scan that was done yesterday showed chronic microvascular ischemic changes neurology is following the patient as well. Patient chest x- ray still showing pulmonary infiltrates. he is on amiodarone for atrial flutter/fibrillation. Patient was on IV heparin which was now discontinued 10/05/2020 Patient's overall clinical condition is much worse today patient doesn't have any new significant neurological improvement. Patient's hemoglobin did drop receiving 11 unit of PRBC transfusion presently around the 6.5 there is no acute GI bleed or any other source of acute bleed. The patient remains on no steroids. Patient tracheostomy site appears to be dye history because of which the surgery evaluated the patient back as Selsun Blue is being applied. Patient has MRSA in the sputum patient is presently on Zyvox as well as cefepime. Chest x-ray showing worsening infiltrates. Creatinine did go up to 3 with highly elevated BNP patient remains on Lasix at this time patient will undergo dialysis catheter placement tomorrow, patient does have a fecal management system receiving tube feeding through peg tube white blood cell count continued to be high but improved to 23,000. Patient is presently sinus rhythm remains on amiodarone patient is on vasopressin at 0.5 mg/kg/m which is being weaned off patient remains on ventilator support with tidal volume of 420 peep of 13 FiO2 60%. Parts Room Associate had an extensive discussion with the family family wanted to continue care. 10/06/2020 Patient is seen and evaluated continues to be closely monitored in the ICU currently receiving catheter placement for hemodialysis as kidney functions continue to worsen and nephrology following. Multiple consultations following. Sodium today is 133 with a potassium of 5.2 BUN is 149 with the current cr eatinine of 3.84. Liver functions continue to be elevated although slightly trending down. Urine output very minimal and continues to be edematous and on IV Lasix. Patient remains on Zyvox and cefepime as there is MRSA in the sputum. Hemoglobin is 7.5. Neurologically only occasionally opening eyes and does not follow commands. Prognosis remains extremely guarded 10/07/2020 Patient is seen in follow-up being closely monitored in the ICU with multiple medical consultations following closely. Patient received hemodialysis yesterday with 1 L removed and will continue with possible daily treatments of hemodialysis and nephrology following closely. IV Lasix has been discontinued. Patient continues on IV Zyvox along with cefepime as his cultures have been positive for MRSA. Hemoglobin 8.2 today and white blood count 15.5, sodium is 131 with a potassium of 5.0, BUN is 124 with the creatinine being 3.53. Patient is afebrile. Patient continues to be tachypneic. Patient remains unresponsive and continues to be off sedation. Neurology is following. Review of systems: Unable to obtain as patient continues to be intubated and sedated Active Medications Acetaminophen (Acetaminophen Tab 325 Mg Tab) 650 mg PO Q6HR PRN PRN Reason: Fever and/ or Pain Last Admin: 09/16/20 11:48 Dose: 650 mg Documented by: Albuterol Sulfate (Albuterol Hfa Inhaler) 2 puff INHALATION RT-QID [facility] Last Admin: 10/07/20 11:54 Dose: 2 puff Documented by: Amiodarone HCl (Amiodarone 100 Mg Tab) 100 mg PO BID [facility] Last Admin: 10/07/20 10:01 Dose: 100 mg Documented by: Artificial Tears (Artificial Tears-Hypromellose Drops 15 Ml Btl) 2 drops BOTH EYES QID [facility] Last Admin: 10/07/20 11:40 Dose: 2 drops Documented by: Ascorbic Acid (Ascorbic Acid 500 Mg Tab) 500 mg PO BID [facility] Last Admin: 10/07/20 09:53 Dose: 500 mg Documented by: Aspirin (Aspirin 81 Mg) 81 mg PO DAILY [facility] Last Admin: 10/07/20 10:01 Dose: 81 mg Documented by: Atorvastatin Calcium (Atorvastatin 80 Mg Tab) 80 mg PO DAILY [facility] Last Admin: 10/07/20 09:54 Dose: 80 mg Documented by: Calcium Acetate (Calcium Acetate 667 Mg Tab) 667 mg PO TID-W/MEALS [facility] Last Admin: 10/07/20 13:54 Dose: 667 mg Documented by: Chlorhexidine Gluconate (Chlorhexidine Gluconate 15 Ml Cup) 15 ml MUCOUS MEM BID [facility] Last Admin: 10/07/20 09:40 Dose: 15 ml Documented by: Cholecalciferol (Cholecalciferol 25 Mcg (1000 Iu) Tablet) 125 mcg PO DAILY [facility] Last Admin: 10/07/20 09:53 Dose: 125 mcg Documented by: Darbepoetin Beau (Darbepoetin Beau 40 Mcg/0.4 Ml Syringe) 40 mcg SQ Q7D [facility] Last Admin: 10/05/20 09:17 Dose: 40 mcg Documented by: Famotidine (Famotidine 20 Mg Tab) 20 mg PO DAILY [facility] Last Admin: 10/07/20 09:53 Dose: 20 mg Documented by: Linezolid 600 mg/ IV Solution 300 mls @ 150 mls/hr IVPB Q12HR [facility]; Protocol Last Admin: 10/07/20 09:52 Dose: 150 mls/hr Documented by: Phenylephrine HCl 40 mg/ (Sodium Chloride) 254 mls @ 17.697 mls/hr IV .[id number] [facility]; Protocol Last Admin: 10/07/20 09:21 Dose: Not Given Documented by: Cefepime HCl 1 gm/ Sodium (Chloride) 50 mls @ 12.5 mls/hr IVPB Q12HR [facility] Last Admin: 10/07/20 10:14 Dose: 12.5 mls/hr Documented by: Insulin Aspart (Insulin Aspart (Novolog) 100 Unit/Ml Vial) 0 unit SQ Q6HR [facility]; Protocol Last Admin: 10/07/20 12:18 Dose: Not Given Documented by: Metoprolol Tartrate (Metoprolol Tartrate 12.5 Mg Tab) 12.5 mg PO DAILY [facility] Last Admin: 10/07/20 09:54 Dose: 12.5 mg Documented by: Nitroglycerin (Nitroglycerin Sl Tabs 0.4 Mg Tab) 0.4 mg SUBLINGUAL Q5M PRN PRN Reason: Chest Pain Last Admin: 09/07/20 03:35 Dose: 0.4 mg Documented by: Prednisone (Prednisone 20 Mg Tab) 40 mg PO DAILY [facility] Last Admin: 10/07/20 09:53 Dose: 40 mg Documented by: Promethazine HCl (Promethazine Hcl 6.25 Mg/5 Ml Cup) 12.5 mg PO QID PRN PRN Reason: Cough Last Admin: 09/06/20 02:07 Dose: 12.5 mg Documented by: Zinc Sulfate (Zinc Sulfate 220 Mg Cap) 220 mg PO DAILY [facility] Last Admin: 10/07/20 09:53 Dose: 220 mg Documented by: Objective - Vital Signs Vital signs: Vital Signs Temp 98.2 F 10/07/20 08:00 Pulse 72 10/07/20 09:00 Resp 36 H 10/07/20 09:00 BP 135/56 10/07/20 07:00 Pulse Ox 89 L 10/07/20 09:00 Intake & Output 10/06/20 10/07/20 10/07/20 18:59 06:59 18:59 Intake Total 143 913 122 Output Total 35 1105 10 Balance 108 -192 112 Weight 109.9 kg 110.9 kg Intake: IV 143 493 26 .9 110 110 20 Cefepime 1 gm In Sodium 50 Chloride 0.9% 50 ml @ 12. 5 mls/hr IVPB Q12HR [facility] Rx#:[id number] Linezolid 600 mg In 300 Dextrose/Water 1 300ml. bag @ 150 mls/hr IVPB Q12HR [facility] Rx#:[id number] Normal Saline Pressure 33 33 6 bag Tube Feeding 330 66 Other 90 30 Output: Urine 35 105 10 Hemodialysis 1000 Other: Voiding Method Indwelling Catheter Indwelling Catheter ABP, PAP, CO, CI - Last Documented Arterial Blood Pressure 123/36 - Exam GENERAL: patient has a tracheostomy and ventilatory support patient has a gaping hole around the tracheostomy site . Temp is 98.2F, pulse is 86, respirations are 32, blood pressure is 128/39, oxygen saturation is 97% with an FiO2 of 50 HEENT: patient does have occasional brainstem reflexes, No conjunctival pallor. Normocephalic, atraumatic. No pharyngeal erythema. No thyromegaly. Occasional eye opening, halitosis noted CARDIOVASCULAR: S1 and S2 muffled PULMONARY: Diminished breath sounds bilaterally with scattered crackles and rhonchi noted. ABDOMEN: Soft, nontender, nondistended, normoactive bowel sounds. No palpable organomegaly. PEG tube is in place MUSCULOSKELETAL: No joint swelling or deformity. EXTREMITIES: No cyanosis, clubbing, generalized edema noted of upper and lower extremities NEUROLOGICAL: Patient is not moving any of his limbs SKIN: No rashes. - Labs CBC & Chem 7: 10/07/20 05:15 10/07/20 05:15 Labs: Abnormal Lab Results - Last 24 Hours (Table) 10/07/20 10/07/20 10/07/20 Range/Units 05:15 05:15 05:15 WBC 15.5 H (3.8-10.6) k/uL RBC 2.57 L (4.30-5.90) m/uL Hgb 8.2 L (13.0-17.5) gm/dL Hct 24.3 L (39.0-53.0) % RDW 17.0 H (11.5-15.5) % Plt Count 116 L (150-450) k/uL Neutrophils # 14.9 H (1.3-7.7) k/uL Lymphocytes # 0.3 L (1.0-4.8) k/uL ABG pH (7.35-7.45) ABG pCO2 (35-45) mmHg ABG pO2 (83-108) mmHg ABG O2 Saturation (94-97) % Sodium 131 L (137-145) mmol/L Carbon Dioxide 21 L (22-30) mmol/L BUN 124 H* (9-20) mg/dL Creatinine 3.53 H (0.66-1.25) mg/dL POC Glucose (mg/dL) (75-99) mg/dL Calcium 7.6 L (8.4-10.2) mg/dL Phosphorus 6.9 H (2.5-4.5) mg/dL AST 188 H (17-59) U/L ALT 272 H (4-49) U/L Total Protein 4.4 L (6.3-8.2) g/dL Albumin 2.2 L (3.5-5.0) g/dL 10/07/20 10/07/20 Range/Units 05:17 05:19 WBC (3.8-10.6) k/uL RBC (4.30-5.90) m/uL Hgb (13.0-17.5) gm/dL Hct (39.0-53.0) % RDW (11.5-15.5) % Plt Count (150-450) k/uL Neutrophils # (1.3-7.7) k/uL Lymphocytes # (1.0-4.8) k/uL ABG pH 7.22 L (7.35-7.45) ABG pCO2 53 H (35-45) mmHg ABG pO2 70 L (83-108) mmHg ABG O2 Saturation 91.9 L (94-97) % Sodium (137-145) mmol/L Carbon Dioxide (22-30) mmol/L BUN (9-20) mg/dL Creatinine (0.66-1.25) mg/dL POC Glucose (mg/dL) 112 H (75-99) mg/dL Calcium (8.4-10.2) mg/dL Phosphorus (2.5-4.5) mg/dL AST (17-59) U/L ALT (4-49) U/L Total Protein (6.3-8.2) g/dL Albumin (3.5-5.0) g/dL Microbiology - Last 24 Hours (Table) 10/02/20 12:20 Blood Culture - Preliminary Blood No Growth after 96 hours Assessment and Plan Assessment: -Acute hypoxic respiratory failure secondary to Covid 19 pneumonia, extensive interstitial pneumonia on mechanical ventilation secondary bacterial bronchitis and pneumonia with MRSA. Patient to remains on ventilatory support, nutritional support via PEG tube -Comatose state with absence of cortical functions secondary to severe metabolic encephalopathy, no seizure activity noted -Status post PEG tube and tracheostomy placement -Acute kidney injury secondary to acute tubular necrosis with worsening creatinine -Sputum growing MRSA -Atrial fibrillation with fast ventricular rate: Patient is presently rate controlled on amiodarone -Change in mental status, acute metabolic encephalopathy -Drop in hemoglobin without any clinical evidence of acute blood loss status post 1 unit of PRBC. Probably secondary to frequent blood draws -Hypertension -Elevated troponin possibly secondary to type II acute myocardial infarction secondary to hypoxemia and COVID-19 -GI prophylaxis with Pepcid -DVT prophylaxis with Lovenox -Full code Recommendations and discussion: Recommend to continue with current medications and current ICU management. Patient continues to be off of paralytics and sedatives with no neurological response. Occasional sporadic eye opening, NOT following any commands. Patient being followed by multiple medical consultations and recently received hemodialy sis port with 1 treatment yesterday with removal of 1 L of fluid and will be receiving hemodialysis today. IV Lasix discontinued. Patient continues on IV antibiotics in the form of Zyvox and cefepime for MRSA in the sputum along with the cultures around the tracheostomy and PEG tube site. Pulmonary, neurology, and cardiology also following. Patient has had prolonged hospitalization requiring tracheostomy and PEG tube placement and has started hemodialysis. Family wishes are for to continue with CODE STATUS a full code. Due to multiple complex medical issues prognosis remains extremely guarded. Further recommendations to follow based on the clinical course the patient.
[2020-10-07 17:53] LABS: Glucose,Whole Blood 163 mg/dL (75-99)
--- NOTE | 2020-10-07 18:19 | P.PN ---
Subjective Progress Note Date: 10/07/20 I am seeing the patient for the first time. Please refer to Dr. Vogel for neurological history. The patient nurse the patient has been off Nimbex since 09/25 and he is been off fentanyl propofol since 09/29. He received dialysis yesterday and today 1 L each day. He has MRA blood sputum and PEG tube. Per the patient nurse he has not been responding only opens his eyes bother than that not responding or following commands and no seizure-like activity. He's been afebrile and upon reviewing the records and between 10/02/2020 total now he's been afebrile Patient white blood cell is trending down. Patient most recent creatinine is 3.54 and has been trending up for the last couple days but from yesterday it's slightly been trending down Sodium is 131 which is mildly low. Phosphorus is 6.9 which is elevated calcium 7.6 AST is 188 and the ALT is 272 which are elevated and that those were the most recent on 10/07/2020. Objective - Vital Signs Vital signs: Vital Signs Temp 98.4 F 10/07/20 12:00 Pulse 67 10/07/20 17:00 Resp 36 H 10/07/20 17:00 BP 135/56 10/07/20 07:00 Pulse Ox 91 L 10/07/20 17:00 Intake & Output 10/06/20 10/07/20 10/07/20 18:59 06:59 18:59 Intake Total 143 913 596 Output Total 35 1105 25 Balance 108 -192 571 Weight 109.9 kg 110.9 kg 110.9 kg Intake: IV 143 493 143 .9 110 110 110 Cefepime 1 gm In Sodium 50 Chloride 0.9% 50 ml @ 12. 5 mls/hr IVPB Q12HR [facility] Rx#:[id number] Linezolid 600 mg In 300 Dextrose/Water 1 300ml. bag @ 150 mls/hr IVPB Q12HR [facility] Rx#:[id number] Normal Saline Pressure 33 33 33 bag Tube Feeding 330 363 Other 90 90 Output: Urine 35 105 25 Hemodialysis 1000 Other: Voiding Method Indwelling Catheter Indwelling Catheter Indwelling Catheter ABP, PAP, CO, CI - Last Documented Arterial Blood Pressure 112/51 - Exam GENERAL: The patient is lying in bed and is not in acute distress. LUNG: Trach on ventilator. ABDOMEN/GI: +PEG tube. NEUROLOGICAL: Limited because of his condition. Not on sedation. Higher mental function: The patient is comatose. GCS4 (E2, VT1, M1). Does not following commands or attempts to verbalized. Cranial nerves: The pupils are round, right pupils is 5 and left is 6 and bila terally reactive to light. Primary gaze is midline. Would open his eyes to painful stimuli. +ve corneal reflex. Negative oculocephalic reflex. No facial weakness. Has his mouth wide open. Not breathing over the vent (but AC set at 36 and he is breathing at 36). +positive weak gag reflex. Otherwise could not assess rest of cranial nerves because of his conition. Motor: The strength is 0/5. Cerebellum: Could not assess. Sensation: Could not assess light touch but to painful stimuli not withdrawing. Reflexes (right/left): 1+ throughout. - Labs CBC & Chem 7: 10/07/20 05:15 10/07/20 05:15 Labs: Abnormal Lab Results - Last 24 Hours (Table) 10/07/20 10/07/20 10/07/20 Range/Units 05:15 05:15 05:15 WBC 15.5 H (3.8-10.6) k/uL RBC 2.57 L (4.30-5.90) m/uL Hgb 8.2 L (13.0-17.5) gm/dL Hct 24.3 L (39.0-53.0) % RDW 17.0 H (11.5-15.5) % Plt Count 116 L (150-450) k/uL Neutrophils # 14.9 H (1.3-7.7) k/uL Lymphocytes # 0.3 L (1.0-4.8) k/uL ABG pH (7.35-7.45) ABG pCO2 (35-45) mmHg ABG pO2 (83-108) mmHg ABG O2 Saturation (94-97) % Sodium 131 L (137-145) mmol/L Carbon Dioxide 21 L (22-30) mmol/L BUN 124 H* (9-20) mg/dL Creatinine 3.53 H (0.66-1.25) mg/dL POC Glucose (mg/dL) (75-99) mg/dL Calcium 7.6 L (8.4-10.2) mg/dL Phosphorus 6.9 H (2.5-4.5) mg/dL AST 188 H (17-59) U/L ALT 272 H (4-49) U/L Total Protein 4.4 L (6.3-8.2) g/dL Albumin 2.2 L (3.5-5.0) g/dL 10/07/20 10/07/20 10/07/20 Range/Units 05:17 05: 11:39 WBC (3.8-10.6) k/uL RBC (4.30-5.90) m/uL Hgb (13.0-17.5) gm/dL Hct (39.0-53.0) % RDW (11.5-15.5) % Plt Count (150-450) k/uL Neutrophils # (1.3-7.7) k/uL Lymphocytes # (1.0-4.8) k/uL ABG pH 7.22 L (7.35-7.45) ABG pCO2 53 H (35-45) mmHg ABG pO2 70 L (83-108) mmHg ABG O2 Saturation 91.9 L (94-97) % Sodium (137-145) mmol/L Carbon Dioxide (22-30) mmol/L BUN (9-20) mg/dL Creatinine (0.66-1.25) mg/dL POC Glucose (mg/dL) 112 H 118 H (75-99) mg/dL Calcium (8.4-10.2) mg/dL Phosphorus (2.5-4.5) mg/dL AST (17-59) U/L ALT (4-49) U/L Total Protein (6.3-8.2) g/dL Albumin (3.5-5.0) g/dL Microbiology - Last 24 Hours (Table) 10/02/20 12:20 Blood Culture - Preliminary Blood No Growth after 120 hours Assessment and Plan Assessment: * Altered mental status with comatose state due to severe toxic metabolic encephalopathy. Reasons multifactorial as below. * Abnormal CT head, showing evidence of subcortical white matter hypodensity, asymmetric to the left posterior parietal region. No definitive acute stroke. * Acute hypoxic respiratory failure secondary due to acute COVID-19 pneumonia with ARDS * MRSA pneumonia * Acute renal insufficiency, getting worse---getting dialysis for past two days * Elevated LFTs * Electrolyte imbalance: hyperphosphatemia, mild hyponatremia, hypocalcemia * Non-STEMI * New onset atrial flutter/fibrillation * Status post tracheostomy and PEG placement Plan: * Repeat computed tomography scan of the head today again revealed evidence of subcortical white matter hypodensity, asymmetric to the left, consistent with small vessel disease. No acute or evolving stroke. * EEG revealed background slowing of at least moderate degree, suggestive of toxic metabolic encephalopathy or from diffuse structural brain abnormality. No epileptiform activity was seen. * Patient has been off sedation 09/29/2020, with no significant clinical improvement. * Carotid Doppler revealed suboptimal study without significant plaque or stenosis in the carotid bulb level bilaterally. Vertebral arteries could not be assessed because of the trachea equipment. * Patient has new onset atrial fibrillation. Will defer management to Cardiology/Primary team. * Hemoglobin A1c 6.6. * 2-D echo from 09/03/2020 shows moderate concentric LVH, EF is 55-60%. Trace MR. * Patient on aspirin 81 mg, Lipitor 80 mg. * Will defer electrolyte imbalance correction to nephrology. Patient is getting dialysis. * We'll defer the rest of medical management to the primary team in the ICU team. Prognosis appears poor based upon neurological and other comorbid conditions. His quality of life seems poor. I contacted the patient son (Keo) via phone and updated him of my findings. Neurology will sign off. Please reconsult neurology if needed. Piotr Brown MD Neuro-Hospitalist Time with Patient: Less than 30
[2020-10-08 00:06] LABS: Glucose,Whole Blood 176 mg/dL (75-99)
[2020-10-08] MEDS: PHENYLEPHRINE 40 MG in SODIUM CHLORIDE 0.9% 250 ML IV SCH ×2 (00:07→16:22)
[2020-10-08] MEDS: INSULIN ASPART (NovoLOG) 100 UNIT/ML VIAL SQ SCH ×5 (00:11→23:58)
[2020-10-08 04:59] LABS: Glucose,Whole Blood 153 mg/dL (75-99)
[2020-10-08 05:25] LABS: Calcium 7.8 mg/dL (8.4-10.2); Potassium 4.4 mmol/L (3.5-5.1); Total Bilirubin 0.6 mg/dL (0.2-1.3)
[2020-10-08 05:32] LABS: Anisocytosis Slight; HCT 23.6 % (39.0-53.0); HGB 7.6 gm/dL (13.0-17.5); Hypochromasia Slight; MCH 31.1 pg (25.0-35.0); MCHC 32.1 g/dL (31.0-37.0); MCV 96.7 fL (80.0-100.0); Macrocytosis Slight; Mean Platelet Volume 11.1; Platelet Count 100 k/uL (150-450); RBC 2.44 m/uL (4.30-5.90); RDW 18.4 % (11.5-15.5)
[2020-10-08 05:52] LABS: ABG HCO3 21 mmol/L (21-25); ABG Oxygen Saturation 92.2 % (94-97); ABG PCO2 46 mmHg (35-45); ABG PH 7.27 (7.35-7.45); ABG PO2 67 mmHg (83-108); ABG TCO2 22 mmol/L (19-24); Allen Test Performed? Yes
[2020-10-08] MEDS: CALCIUM ACETATE 667 MG TAB PO SCH ×3 (06:14→17:13)
[2020-10-08 06:22] LABS: Band Neutrophils % 21 %; Metamyelocytes # (M) 0.09 k/uL (0); Metamyelocytes % 1 %; Neutrophils % (M) 76 %; Nucleated Red Blood Cells 3 /100 WBC (0-0); Total Cells Counted 200
[2020-10-08 06:23] LABS: Anisocytosis (M) Present; Lymphocytes # (M) 0.27 k/uL (1.0-4.8); Polychromasia Present; Toxic Granulation Present; WBC 8.9 k/uL (3.8-10.6)
--- NOTE | 2020-10-08 07:29 | XR ---
EXAMINATION TYPE: XR chest 1V portable DATE OF EXAM: 10/08/2020 HISTORY: Shortness of breath. COMPARISON: 10/07/2020 TECHNIQUE: Single view of the chest is submitted. FINDINGS: Demonstrated are scattered senescent parenchymal change. Airspace infiltrates are seen throughout both lung bobo with improved aeration at the right lower l obe. Tracheostomy tube is in place. PICC line noted. The heart is stable. Hilar and mediastinal structures are within normal limits. Degenerative changes are seen of the dorsal spine. IMPRESSION: 1. Airspace infiltrates are seen throughout both lung bobo with improved aeration at the right low er lobe.
[2020-10-08] MEDS: ALBUTEROL HFA INHALER INHALATION SCH ×4 (07:55→19:34)
[2020-10-08] MEDS: predniSONE 20 MG TAB PO SCH (08:28)
[2020-10-08] MEDS: ATORVASTATIN 80 MG TAB PO SCH (08:28)
[2020-10-08] MEDS: ASPIRIN 81 MG PO SCH (08:28)
[2020-10-08] MEDS: CHLORHEXIDINE GLUCONATE 15 ML CUP MUCOUS MEM SCH ×2 (08:28→20:39)
[2020-10-08] MEDS: AMIODARONE 100 MG TAB PO SCH ×2 (08:28→20:39)
[2020-10-08] MEDS: CHOLECALCIFEROL 25 MCG (1000 IU) TABLET PO SCH (08:28)
[2020-10-08] MEDS: ZINC SULFATE 220 MG CAP PO SCH (08:29)
[2020-10-08] MEDS: METOPROLOL TARTRATE 12.5 MG TAB PO SCH (08:29)
[2020-10-08] MEDS: FAMOTIDINE 20 MG TAB PO SCH (08:29)
[2020-10-08] MEDS: ARTIFICIAL TEARS-HYPROMELLOSE DROPS 15 ML BTL BOTH EYES SCH ×4 (08:30→23:59)
[2020-10-08] MEDS: CEFEPIME 1 GM in SODIUM CHLORIDE 0.9% 50 ML IVPB SCH ×2 (08:30→20:39)
[2020-10-08] MEDS: ASCORBIC ACID 500 MG TAB PO SCH ×2 (08:30→20:39)
[2020-10-08] MEDS: LINEZOLID 600 MG in DEXTROSE/WATER 1 300ML.BAG IVPB SCH ×2 (08:42→20:39)
--- NOTE | 2020-10-08 10:20 | P.PN ---
Subjective Patient is seen in follow-up for acute kidney injury. He is status post tracheostomy and PEG tube placement. No significant change in mentation. Patient tested positive for coronavirus. Also on antibiotics for MRSA pneumonia. Remains oliguric. Off vasopressors. Started on hemodialysis October 06. Receiving tube feeding. Vital signs are stable. General: The patient appeared well nourished and normally developed. HEENT: Tracheostomy noted. LUNGS: Breath sounds decreased. HEART: Rate and Rhythm are regular. ABDOMEN: Soft, no distention. EXTREMITITES: 2+ edema. Objective - Vital Signs Vital signs: Vital Signs Temp 99.2 F 10/08/20 08:00 Pulse 74 10/08/20 09:00 Resp 21 10/08/20 09:00 BP 107/51 10/08/20 09:00 Pulse Ox 90 L 10/08/20 09:00 Intake & Output 10/07/20 10/08/20 10/08/20 18:59 06:59 18:59 Intake Total 642 992 268 Output Total 25 5 0 Balance 617 987 268 Weight 110.9 kg 110.8 kg Intake: IV 156 506 39 .9 120 120 30 Cefepime 1 gm In Sodium 50 Chloride 0.9% 50 ml @ 12. 5 mls/hr IVPB Q12HR [facility] Rx#:[id number] Linezolid 600 mg In 300 Dextrose/Water 1 300ml. bag @ 150 mls/hr IVPB Q12HR [facility] Rx#:[id number] Normal Saline Pressure 36 36 9 bag Tube Feeding 396 396 99 Other 90 90 130 Output: Urine 25 5 0 Other: Voiding Method Indwelling Catheter Indwelling Catheter Indwelling Catheter ABP, PAP, CO, CI - Last Documented Arterial Blood Pressure 116/38 - Labs CBC & Chem 7: 10/08/20 04:55 10/08/20 04:55 Labs: Abnormal Lab Results - Last 24 Hours (Table) 10/07/20 10/07/20 10/08/20 Range/Units 11:39 17:52 00:05 RBC (4.30-5.90) m/uL Hgb (13.0-17.5) gm/dL Hct (39.0-53.0) % RDW (11.5-15.5) % Plt Count (150-450) k/uL Neutrophils # (Manual) (1.3-7.7) k/uL Lymphocytes # (Manual) (1.0-4.8) k/uL Metamyelocytes # (Man) (0) k/uL Nucleated RBCs (0-0) /100 WBC ABG pH (7.35-7.45) ABG pCO2 (35-45) mmHg ABG pO2 (83-108) mmHg ABG O2 Saturation (94-97) % Sodium (137-145) mmol/L Carbon Dioxide (22-30) mmol/L BUN (9-20) mg/dL Creatinine (0.66-1.25) mg/dL Glucose (74-99) mg/dL POC Glucose (mg/dL) 118 H 163 H 176 H (75-99) mg/dL Calcium (8.4-10.2) mg/dL AST (17-59) U/L ALT (4-49) U/L Total Protein (6.3-8.2) g/dL Albumin (3.5-5.0) g/dL 10/08/20 10/08/20 10/08/20 Range/Units 04:55 04:55 04:58 RBC 2.44 L (4.30-5.90) m/uL Hgb 7.6 L (13.0-17.5) gm/dL Hct 23.6 L (39.0-53.0) % RDW 18.4 H (11.5-15.5) % Plt Count 100 L (150-450) k/uL Neutrophils # (Manual) 8.60 H (1.3-7.7) k/uL Lymphocytes # (Manual) 0.27 L (1.0-4.8) k/uL Metamyelocytes # (Man) 0.09 H (0) k/uL Nucleated RBCs 3 H (0-0) /100 WBC ABG pH (7.35-7.45) ABG pCO2 (35-45) mmHg ABG pO2 (83-108) mmHg ABG O2 Saturation (94-97) % Sodium 135 L (137-145) mmol/L Carbon Dioxide 20 L (22-30) mmol/L BUN 95 H (9-20) mg/dL Creatinine 2.65 H (0.66-1.25) mg/dL Glucose 141 H (74-99) mg/dL POC Glucose (mg/dL) 153 H (75-99) mg/dL Calcium 7.8 L (8.4-10.2) mg/dL AST 149 H (17-59) U/L ALT 220 H (4-49) U/L Total Protein 4.0 L (6.3-8.2) g/dL Albumin 2.0 L (3.5-5.0) g/dL 10/08/20 Range/Units 05:50 RBC (4.30-5.90) m/uL Hgb (13.0-17.5) gm/dL Hct (39.0-53.0) % RDW (11.5-15.5) % Plt Count (150-450) k/uL Neutrophils # (Manual) (1.3-7.7) k/uL Lymphocytes # (Manual) (1.0-4.8) k/uL Metamyelocytes # (Man) (0) k/uL Nucleated RBCs (0-0) /100 WBC ABG pH 7.27 L (7.35-7.45) ABG pCO2 46 H (35-45) mmHg ABG pO2 67 L (83-108) mmHg ABG O2 Saturation 92.2 L (94-97) % Sodium (137-145) mmol/L Carbon Dioxide (22-30) mmol/L BUN (9-20) mg/dL Creatinine (0.66-1.25) mg/dL Glucose (74-99) mg/dL POC Glucose (mg/dL) (75-99) mg/dL Calcium (8.4-10.2) mg/dL AST (17-59) U/L ALT (4-49) U/L Total Protein (6.3-8.2) g/dL Albumin (3.5-5.0) g/dL Microbiology - Last 24 Hours (Table) 10/02/20 12:20 Blood Culture - Preliminary Blood No Growth after 120 hours Assessment and Plan Plan: Assessment: 1. Acute kidney injury secondary to ATN secondary to septic shock. Oliguric. Diuretic unresponsive. Baseline creatinine near 1. No hydronephrosis and kidney ultrasound. Started on hemodialysis October 06. 2. MRSA pneumonia maintained on antibiotics. 3. Acute hypoxic respiratory failure secondary to quit 19 pneumonitis. Status post tracheostomy and PEG tube placement this admission. 4. Hypernatremia from lack of oral water intake. Resolved. Now hyponatremic, hypervolemic. Stable. 5. A. fib with RVR. On oral amiodarone. 6. Shock, Now off vasopressors. 7. Acute blood loss anemia. Status post blood transfusion this admission. Also received IV DDAVP this admission. On Aranesp. 8. Hyperphosphatemia secondary to acute kidney injury. Maintained on PhosLo. 9. Volume overload. No improvement in urine output with IV Lasix. Plan: Currently seen while undergoing hemodialysis. I will increase ultrafiltration as able to tolerate. Plan for another treatment tomorrow. Midodrine 10 mg once now. Now off IV Lasix. Continue to monitor renal function and urine output.
--- NOTE | 2020-10-08 11:01 | P.PN ---
Subjective Progress Note Date: 10/08/20 CHIEF COMPLAINT: COVID-19 pneumonia HISTORY OF PRESENT ILLNESS: Patient is in the ICU and is intubated. He is status post tracheostomy and PEG tube placement. Patient is tolerating tube feedings. Nepro tube feedings are currently at goal at 33 mL per hour. No residual reported. Patient is currently getting hemodialysis this morning. Patient has MRSA in sputum. Had breakdown of the skin at tracheostomy site. Aquacel silver is being applied to trach site. Afebrile WBC has normalized to 8.9 hemoglobin 7.6 creatinine 2.65 PHYSICAL EXAM: VITAL SIGNS: Reviewed. GENERAL: Well-developed in no acute distress. HEENT: Moist buccal mucosa. Head is atraumatic, normocephalic. Tracheostomy site with skin breakdown ABDOMEN: Soft. Nondistended. Nontender. PEG tube site clean dry and intact NEUROLOGIC: Intubated ASSESSMENT: 1. Acute hypoxic respiratory failure due to COVID-19 pneumonia with prolonged mechanical ventilation status post tracheostomy placement 2. Moderate protein calorie malnutrition status post PEG tube placement PLAN: -Continue tube feedings -Continue local wound care to tracheostomy site with Aquacel Silver -Continue supportive care -Continue ICU management Physician Continuous Linter Drier Operator note has been reviewed by physician. Signing provider agrees with the documented findings, assessment, and plan of care. Objective - Vital Signs Vital signs: Vital Signs Temp 99.2 F 10/08/20 08:00 Pulse 75 10/08/20 10:00 Resp 36 H 10/08/20 10:00 BP 108/52 10/08/20 10:00 Pulse Ox 92 L 10/08/20 10:00 Intake & Output 10/07/20 10/08/20 10/08/20 18:59 06:59 18:59 Intake Total 642 992 314 Output Total 25 5 5 Balance 617 987 309 Weight 110.9 kg 110.8 kg Intake: IV 156 506 52 .9 120 120 40 Cefepime 1 gm In Sodium 50 Chloride 0.9% 50 ml @ 12. 5 mls/hr IVPB Q12HR [facility] Rx#:[id number] Linezolid 600 mg In 300 Dextrose/Water 1 300ml. bag @ 150 mls/hr IVPB Q12HR [facility] Rx#:[id number] Normal Saline Pressure 36 36 12 bag Intake, IV Titration 0 Amount Phenylephrine 40 mg In 0 Sodium Chloride 0.9% 250 ml @ 0.5 MCG/KG/MIN 17. 697 mls/hr IV .[id number] [facility] Rx#:[id number] Tube Feeding 396 396 132 Other 90 90 130 Output: Urine 25 5 5 Other: Voiding Method Indwelling Catheter Indwelling Catheter Indwelling Catheter ABP, PAP, CO, CI - Last Documented Arterial Blood Pressure 88/47 - Labs CBC & Chem 7: 10/08/20 04:55 10/08/20 04:55 Labs: Abnormal Lab Results - Last 24 Hours (Table) 10/07/20 10/07/20 10/08/20 Range/Units 11:39 17:52 00:05 RBC (4.30-5.90) m/uL Hgb (13.0-17.5) gm/dL Hct (39.0-53.0) % RDW (11.5-15.5) % Plt Count (150-450) k/uL Neutrophils # (Manual) (1.3-7.7) k/uL Lymphocytes # (Manual) (1.0-4.8) k/uL Metamyelocytes # (Man) (0) k/uL Nucleated RBCs (0-0) /100 WBC ABG pH (7.35-7.45) ABG pCO2 (35-45) mmHg ABG pO2 (83-108) mmHg ABG O2 Saturation (94-97) % Sodium (137-145) mmol/L Carbon Dioxide (22-30) mmol/L BUN (9-20) mg/dL Creatinine (0.66-1.25) mg/dL Glucose (74-99) mg/dL POC Glucose (mg/dL) 118 H 163 H 176 H (75-99) mg/dL Calcium (8.4-10.2) mg/dL AST (17-59) U/L ALT (4-49) U/L Total Protein (6.3-8.2) g/dL Albumin (3.5-5.0) g/dL 10/08/20 10/08/20 10/08/20 Range/Units 04:55 04:55 04:58 RBC 2.44 L (4.30-5.90) m/uL Hgb 7.6 L (13.0-17.5) gm/dL Hct 23.6 L (39.0-53.0) % RDW 18.4 H (11.5-15.5) % Plt Count 100 L (150-450) k/uL Neutrophils # (Manual) 8.60 H (1.3-7.7) k/uL Lymphocytes # (Manual) 0.27 L (1.0-4.8) k/uL Metamyelocytes # (Man) 0.09 H (0) k/uL Nucleated RBCs 3 H (0-0) /100 WBC ABG pH (7.35-7.45) ABG pCO2 (35-45) mmHg ABG pO2 (83-108) mmHg ABG O2 Saturation (94-97) % Sodium 135 L (137-145) mmol/L Carbon Dioxide 20 L (22-30) mmol/L BUN 95 H (9-20) mg/dL Creatinine 2.65 H (0.66-1.25) mg/dL Glucose 141 H (74-99) mg/dL POC Glucose (mg/dL) 153 H (75-99) mg/dL Calcium 7.8 L (8.4-10.2) mg/dL AST 149 H (17-59) U/L ALT 220 H (4-49) U/L Total Protein 4.0 L (6.3-8.2) g/dL Albumin 2.0 L (3.5-5.0) g/dL 10/08/20 Range/Units 05:50 RBC (4.30-5.90) m/uL Hgb (13.0-17.5) gm/dL Hct (39.0-53.0) % RDW (11.5-15.5) % Plt Count (150-450) k/uL Neutrophils # (Manual) (1.3-7.7) k/uL Lymphocytes # (Manual) (1.0-4.8) k/uL Metamyelocytes # (Man) (0) k/uL Nucleated RBCs (0-0) /100 WBC ABG pH 7.27 L (7.35-7.45) ABG pCO2 46 H (35-45) mmHg ABG pO2 67 L (83-108) mmHg ABG O2 Saturation 92.2 L (94-97) % Sodium (137-145) mmol/L Carbon Dioxide (22-30) mmol/L BUN (9-20) mg/dL Creatinine (0.66-1.25) mg/dL Glucose (74-99) mg/dL POC Glucose (mg/dL) (75-99) mg/dL Calcium (8.4-10.2) mg/dL AST (17-59) U/L ALT (4-49) U/L Total Protein (6.3-8.2) g/dL Albumin (3.5-5.0) g/dL Microbiology - Last 24 Hours (Table) 10/02/20 12:20 Blood Culture - Preliminary Blood No Growth after 120 hours
[2020-10-08] MEDS: NOREPINEPHRINE 8 MG in SODIUM CHLORIDE 0.9% 250 ML IV SCH (11:03)
[2020-10-08 12:22] LABS: Glucose,Whole Blood 134 mg/dL (75-99)
--- NOTE | 2020-10-08 12:29 | P.PN ---
Subjective Progress Note Date: 10/08/20 Principal diagnosis: Acute hypoxic respiratory failure secondary to COVID-19 pneumonia and ARDS. 54-year-old white male patient who is an ex smoker, carries [id number] smoking history quit smoking 1 year ago in May, history of hypertension and gout who sees Dr. Contreras, presented to the emergency department on 08/02/2020 with complaints of worsening shortness of breath, cough, and patient was diagnosed with Covid 19 one week ago, was tested at [facility] per Dr. Contreras's order. 2 weeks ago he had symptoms of flulike illness, sore throat, shortness of breath, weakness, muscle aches which progressively became worse, and patient developed worsening shortness of breath and had difficulty breathing and ambulating at home. He was placed on Decadron [address] Contreras and he has 1-1/2 days worth left of it. Chest x-ray in the emergency department showed bilateral interstitial pneumonia. White blood cell count was 33.1, d-dimer was greater than 35.2, CO2 is 16, the rest of electrolytes were unremarkable, B1 is 35 creatinine is 1.04, plasma lactic acid is 4.5, patient was given IV fluids and lactic acid came down to 1.8, total bilirubin was 1.6, AST is 107, ALT is 48, alkaline phosphatase is 114, LDH is 5924, first troponin was 4.190, and the second one went up to 6.960. CRP is 180.3, pro-calcitonin level is 0.33, urinalysis showed 1+ protein, but no definite sign of infection, pulse ox is 86 on room air, patient has significant shortness of breath, and was placed on BiPAP support, currently with pressures of 12/6, and FiO2 of 100% on which he remains this morning, he is afebrile, hemodynamically he is stable, she was started on IV Decadron, we'll start him on intermediate dose of Lovenox 50 mg every 12 hours, CTA chest shows no evidence of pulmonary embolism, and extensive pulmonary infiltrates that are mostly interstitial consistent with severe interstitial pneumonia. Progress note dated 09/04/2020. 54-year-old male, admitted with a diagnosis of COVID 19 pneumonitis. Currently, he is on BiPAP at 12/6 and 90%. FiO2 will be dropped down to 80%. In addition, he is getting saline at 75 mL an hour. The patient's doing better today. He states that he feels better. He still short of breath with activity. I did tell him today to make sure he moves around in bed when he is laying in bed. White count 29.3, hemoglobin 14.6, hematocrit 42.7, platelet count 140,000. D- dimer greater than 34.10. Sodium 136, potassium 5.1, chlorides 105, CO2 25, anion gap 6, BUN 39, creatinine 0.9. LDH is 3965. C-reactive protein 143. Chest x-ray shows a worsening pattern of bilateral airspace disease. Progress note dated 09/05/2020. 54-year-old male, admitted with a diagnosis of COVID 19 pneumonitis. He remains on BiPAP with an FiO2 of 80%. Settings included an IPAP 12, EPAP 6. The patient states that he feels a bit better. He is getting saline at 75 mL an hour. He feels like he is breathing is improved. He does know to move about in bed. No new laboratory data today. His most recent chest x-ray was from yesterday and was reviewed. The patient's on appropriate medications. Progress note dated 09/06/2020. 54-year-old male, seen again today. The patient is on BiPAP, settings of IPAP 12, EPAP 6, and 90%. He is also getting saline at 75 mL an hour. Was admitted with a diagnosis of acute hypoxemic respiratory failure secondary to COVID 19 pneumonia. The patient feels about the same. No better or no worse. He will have a chest x-ray tomorrow. Labs are reviewed. White count 19.3, hemoglobin 15, hematocrit 43.9, and platelet count 92,000. Sodium 135, potassium 4.9, chlorides 109, CO2 20, anion gap 6, BUN 34, and creatinine 0.92. There is no recent chest x-ray to review. The patient is seen today 09/07/2020 in follow-up on the selective care unit. He is currently resting comfortably in bed. States he is doing a little better today compared to yesterday. He is still requiring BiPAP support 12/6 and 100% FiO2. Chest x-ray reveals stable bilateral lung infiltrates. Blood glucose 163. He remains on bronchodilators, vitamin supplements, dexamethasone, Lovenox. 0.9 normal saline at 75 ML's per hour. On 09/08/2020, the patient is being seen in follow-up on the [facility] units. The patient is a 54-year-old male patient with Covid 19 related pneumonia and the patient has diffuse stable by the pulmonary infiltrates. The patient remains on Decadron. The patient is also on Lovenox 40 mg subcu every 12 hours. The patient is also requiring BiPAP for respiratory support at a pressure of 12/6 cm of water and FiO2 of 100%. The patient is able to generate a tidal volume of 800 mL of the respiratory rate of 24 and a minute ventilation of 23 L. The patient Has elevated inflammatory markers and the last time the markers were checked were on 09/04/2020 with an LDH of 3965 and a CRP of 142. Levels will need to be rechecked. The d-dimer was above 34. The LDH level remains elevated at 3911. D-dimer is 24.6. The patient is also on IV fluids with normal saline at the rate of 75 mL an hour. The patient is on Decadron 6 because IV every 24 hours. The patient is also on Lovenox 40 mg subcu every 12 hours. His current BMI 31.5. On 09/09/2020, the patient is being seen for a follow-up. The patient continues to be on a BiPAP at a pressure of 12/6 cm of water with an FiO2 of 100%. The patient is awake and he requires assistance to be moved around. His tidal volume is in the order of 800 mL which is comparable to yesterday. A repeat chest x-ray was done and it shows some limited improvement in the bilateral pulmonary infiltrates. the patient remains on Decadron and the dose is currently at 60 mg IV every 12 hours. inflammatory markers are elevated with an LDH level of 3 911 and the CRP is 22.5. His d-dimer is still elevated at 24.6 and the patient is on Lovenox at a dose of 40 mg subcu every 12 hours.. On his problem continue to be the patient's hypoxemia, Covid 19 related pneumonia and global weakness. Unfortunately, the patient is unable to eat as the patient desaturates significantly was taken off the BiPAP. 09/10/2020 the patient remains BiPAP dependent at the pressure of 12/6 cm of water. His FiO2 is still 100%. He was still able to generate adequate tidal volumes while being on a BiPAP. He has had a PICC line yesterday as the patient was not meeting his caloric requirements and I was also contemplating the possibility of TPN. His chest x-ray remains unchanged with diffuse bilateral infiltrates consistent with Covid 19 related pneumonia. His blood work is showing a d-dimer of 24 from 2 days ago. Electrolytes are normal, and no new inflammatory markers. The current pulse ox is 92% on a BiPAP and the patient remains on Decadron 6 mg IV every 12 hours. 09/11/2020, the patient remains on a BiPAP at a pressure of 12/6 and FiO2 of 100%. He is quite lethargic. He is in mild degree of respiratory distress even at rest while on the BiPAP. Current pulse ox is 89%. A PICC line was inserted yesterday and the patient was also started on TPN for nutritional support knowing that he was able to eat and he was not meeting his caloric requirements. His d-dimer is 15. The patient is on Lovenox 50 mg subcu every 12 hours. The patient is also receiving Decadron 6 mg IV 12 hours. Current pulse ox is around 89%. No major changes condition since yesterday. No other new labs otherwise. His resting in bed comfortably. He is generating tidal volumes above >600cc with respiratory rate in the mid 20s. He had no signs of any fluid overload. Mentation is preserved. Looks lethargic. He is able to answer questions and following commands. No other significant issues otherwise for now. I will today's condition is essentially stable since yesterday. 09/12/2020 the patient remains on BiPAP 12/6 cm of water with an FiO2 of 100%. Condition is essentially the same and unchanged compared to yesterday. The patient is currently on a pulse ox of 94% on above-mentioned BiPAP setting. He remains on Decadron 6 mg IV every 12 hours. He also is on Lovenox 50 mg subcu every 12 hours. He has an LDH level of 5040 at a CRP of 8.2. His inflammatory markers were obtained yesterday and they were quite elevated. He is still able to generate tidal volumes above 500 and his respiratory rate currently is in the 00s for now. Chest x-ray is consistent with diffuse bilateral pulmonary infiltrates. He has a PICC line in his left upper extremity and the patient is receiving TPN for nutritional support. As mentioned, he remains weak and lethargic. He is arousable and follows commands and answering questions. 09/13/2020, the patient got transferred to the intensive care unit where the patient got intubated and placed on a mechanical ventilator. Note that the patient was maintaining relatively fine on the BiPAP and ultimately desaturates., Became more short of breath and unresponsive in the blood. Showed significant hypoxemia and he had to come in to the ICU where he was intubated and placed on a mechanical ventilator. At this point and he is sedated with propofol running at 50 mcg/kg per minute and the patient is also paralyzed with Nimbex at 3 mcg/kg per minute. He is currently on assist control mode at the rate of 32 with a tidal volume of 400 and FiO2 of 1% with a PEEP of 15. The blood gases post intubation showed a pH of 7.22 and a pCO2 of 61 and pO2 of 89. His chest x-ray showing adequate positioning of ET tube. He has diffuse bilateral pulmonary infiltrates consistent with Covid 19 related p neumonia. Peak airway pressure 38. Static pressures 34. He is well rested and paralyzed for now. His BP currently is running at 156/59 and the patient was quite hypertensive prior to his intubation. His blood pressure came up to 182/110 and currently it's more stable. Labs are still pending for now. Meanwhile, the patient remains on Decadron 6 mg IV every 12 hours. Is also on Lovenox 40 mg subcu twice a day. He was receiving TPN for nutritional support as the patient was unable to take any form of oral intake as he was very much BiPAP dependent. TPN will be discontinued and the patient will be transitioned to enteral feeding note that he is currently intubated on a mechanical venti lator. A central line was also inserted. IV fluids are running at the rate of 20 mL an hour of normal saline. TPN Is currently running at 90 mL an hour. 09/14/2020, the patient is intubated on a mechanical ventilator in the intensive care unit. The patient currently is sedated and paralyzed. Propofol is running at 40 mcg/kg per minute and the Nimbex is running at 1.8 mcg/kg per minute. He is adequately sedated and paralyzed. He is still assist-control mode of mechanical ventilation at the rate of 32 with a tidal volume of 400 and FiO2 of 100% and a PEEP of 15. His blood gases from today showed a pH of 7.29 and pCO2 of 62 and pO2 of 86. We are allowing permissive hypercapnia. The peak and static pressures today are 14 and 34 respectively. His chest x-ray from today showing diffuse bilateral pulmonary infiltrates more so in the lower lobes and there is extensive consolidation of the lower lobes bilaterally. ET tube is at the level of the aortic knob. NG tube is in place. The patient remains on Decadron and currently is at a dose of 6 mg IV every 12 hours. In terms of his blood work, his inflammatory markers show a drop in the LDH level which is down to 294 and a CRP level is down to 5.2. D-dimer from a few days ago was 15.6 and the patient remains on Lovenox at a dose of 40 mg subcu every 12 hours. His TPN has been discontinued and the patient was switched enteral feeding and the patient is currently on vital high protein at the rate of 20 mL an hour which is at goal for now. IV fluids running at 20 mL an hour. He is hemodynamically stable. His overall fluid balance has been +1.6 L over the past 24 hours. Note that this patient was intubated yesterday after failing BiPAP for several days. He was intubated on 08/12/2020. Family is aware. Patient was reevaluated today on 09/15/2020, remains intubated and mechanically ventilated. Patient is presently on assist control rate of 52 tidal volume is 400 FiO2 at 90% PEEP is 15 ABG showed a pO2 of 77 pCO2 of 64 pH of 7.30. His peak airway pressure is 47 static pressure is 43. Attempted to adjust the PEEP higher, however he static pressure was getting much higher. Hence The PEEP at 15. And I adjusted the flow rate down to 60. He is on multiple drips including Nimbex at 1.5 mcg/kg/minute. he is on propofol at 40 mcg/kg per minute. Patient remains on permissive hypercapnia with a pCO2 of 64 pH of 7.30. Today considering the patient is on Nimbex I added fentanyl and 0.25 mcg/kg/h. And I switch his Decadron to Solu-Medrol at 60 mg IV push every 6 hours. Patient was intubated on 09/13 has been in the ICU since 09/13 he was actually admitted on 09/02 feeding gomez he is on HP20 mL per hour. Patient is sedated and paralyzed. Chest x-ray continues to show bilateral patchy infiltrates. Not much of a change noted. Patient was reevaluated today on 09/16/2020, remains in the ICU, intubated and mechanically ventilated. He is now on ventilator settings assist control rate of 3 to tell volume is 400 FiO2 80% and PEEP of 16. ABG showed a pO2 of 77 pCO2 of 68 pH of 7.28. Patient remains on propofol at 40, Nimbex at 1.2 fentanyl 0.5, IV fluid at KVO. FiO2 was decreased today from on the percent to 80%, and increase the flow rate to 65 L/m. Chest x-ray is showing no significant change. Patient remains fully sedated and paralyzed. He is on tube feeding using vital HP at 20 mL per hour. Electrolytes were reviewed potassium is 5.4. BUN is 55 creatinine 1.1, hence increase his IV fluid rate to 100 mL per hour. Bit of leukocytosis noted today, but improved compared to yesterday WBC count is 19.5 hemoglobin is 13.4. LDH continues on the rise to 081, and C-reactive protein is better at 1.5. Patient was reevaluated today on 09/17/2020, remains in the ICU, intubated mechanically ventilated, sedated, paralyzed, his ventilator settings are assist control rate of 32, tidal volume is 400 FiO2 65% and PEEP remains at 16. Peak airway pressure is 37, static pressures 27, chest x-ray continues to show by lateral patchy infiltrates consistent with COVID-19 pneumonia. ABG showed a pO2 of 64 pCO2 of 69 pH of 7.26. Hence his tidal volume was increased up to 420 7400. Patient will remain sedated. No plans to wean or extubated anytime soon. Patient remains on propofol at 40 Nimbex at 2 fentanyl 0.5 IV fluid at 100 mL per hour, he is on tube feeding 37/37 vital HP. Electrolytes are normal BUN is 58 creatinine is 1.08. Improving. LDH was 2080 yesterday. And C-reactive protein 1.5 Patient was reevaluated today on 09/18/2020, remains in the ICU intubated mechanically ventilated and sedated and paralyzed. Still requiring relatively high FiO2 of 65 and high PEEP of 16. ABG is marginal. He is on assist control rate of 34 tidal volume 420 FiO2 65% PEEP of 16. ABG showed a pO2 of 64 pCO2 of 61 pH of 7.32. Patient remains on propofol at 40 Nimbex at 0.2 and fentanyl at 0.5. Remains on tube feeding/vital HP at 37 mL per hour. Plan today to give the patient at least and Nimbex holiday if possible. Chest x-ray is basically unchanged. And his overall condition is about the same. WBC count is 14.9 hemoglobin is 12. Electrolytes showed elevated sodium of 146 hence the patient will be given free water and potassium of 5.6 we'll give a dose of Kayexalate. Renal profile showed a BUN of 54 creatinine 0.97, improving. Patient was reevaluated today on 09/19/2020, remains intubated and sedated, he is also paralyzed, remains on assist control rate of 32, tidal volume is 420 FiO2 65% and PEEP of 16. ABG showed a pO2 of 72 pCO2 of 63 pH of 7.32. His peak ai rway pressure is in the high 30s and plateau pressure is 31. Patient remains on IV fluid at 100 mL/h he is on Nimbex at 3, fentanyl at 1 on propofol at 40. He is on tube feeding using vital HP at goal. Today considering his sodium being elevated we have transitioned his IV fluids from 0.9 normal saline to D5W at 100 mL per hour and the patient will be receiving free water flushes via nasogastric tube. Chest x-ray is basically about the same, continues show by basilar patchy infiltrates, consistent with COVID-19 pneumonia, not much of a change is noted in the last couple of days. Hemodynamically gomez, the patient is stable, not requiring any pressors. Reevaluated today on 09/20/2020, patient remains intubated and sedated and mechanically ventilated and paralysis. On assist control rate of 32 tidal volume 420 FiO2 60% PEEP of 16. ABG showed a pO2 of 69 pCO2 of 62 pH of 7.32. Chest x-ray is basically about the same continues to by basilar patchy infiltrates. Remains on propofol at 20 Nimbex at 3 fentanyl at 1 D5W at 100 mL per hour. Remains on tube feeding. He is also receiving free water flushes. He is on enteral feeding using vital HP at 40 mL per hour. CBC is relatively normal hemoglobin is 10.7. Electrolytes sodium remains elevated at 145, however improving from 149 yesterday. BUN is 51 creatinine 1.03. Calcium is 7.9. No inflammatory markers were ordered today. Patient was reevaluated today on 09/21/2020, remains in the ICU, intubated and mechanically ventilated, sedated and paralyzed. Patient is on assist control rate of 32 tidal volume 420 FiO2 60% and PEEP of 16. ABG showed a pO2 of 65 pCO2 of 62 pH of 7.32. Remains on propofol at 25, Nimbex S3 fentanyl at 1 D5W at 100 mL per hour, and vital HP 40/40. Chest x-ray is showing slight improvement in his bilateral patchy infiltrates. Patient has not had a bowel movement in almost over a week, hence we'll start the patient on lactulose and Reglan. Today I have instructed the nurses to consider pronating the patient at least try presently position and hopefully address Nimbex holidays. However the patient is to be prone doubt other chemo on Nimbex. His IV fluid remains D5W and I cut it down to 50 mL per hour. After evaluating the patient, and patient was off Nimbex for a very short period of time developed atrial fibrillation with RVR, Lasix the patient on amiodarone as per protocol, bolused with amiodarone. And he had to go back on Nimbex. 2020, patient is being seen in follow-up in the intensive care units. Neurologically unchanged. Occasionally opens up his eyes and blinks. Does not follow any commands. Overall neurologic examination is the same as yesterday without any interval progression or worsening. Meanwhile, the patient is on a mechanical ventilator. As stated earlier, he is a tracheostomy tube. Current vent settings include an assist-control mode at the rate of 32 with a tidal volume of 420 and a PEEP is a 13 with an FiO2 of 60%. Chest x-ray showing diffuse breath and pulmonary infiltrates with areas of consolidation. Blood gases from today showed a pH of 7.24 with a pCO2 of 49 and pO2 of 129. Sputum was positive for MRSA and the patient is currently on Zyvox. The patient is afebrile. His white cell count is currently at 23.9. In terms of his COVID-19 related pneumonia, the patient is on steroids and the patient is receiving 40 mg by mouth daily. Antibiotic coverage is currently with a combination of Zyvox and cefepime. Another issue is the tracheostomy stoma where the patient has a large incision on his back and the stitches have already fallen apart and the patient has a dehisced wound. The stoma itself is intact. The skin around it is open and there is some liquidy material accumulating and pulling in that area. Appropriate dressing is applied to the general surgeon will be informed of this ongoing problem. Meanwhile, the patient is also developing progressive worsening renal function. Creatinine is up to 3.0. His overall urine output is no order of less than 10 mL an hour and her net fluid balance for yesterday has been +2.5 L. As such, the findings on the case and the plan is to proceed with hemodialysis with the next 24 hours especially of his lymphoma in his urine output and renal function. He is currently on Lasix and he is receiving Lasix 80 mg on a daily basis. No major electrode disturbance for now. He is receiving enteral feeding for nutritional support. Has a PEG tube in place. He has diffuse swelling all 4 extremities. As mentioned, he has a ongoing low- grade mucosal lesions/be bleed from his tongue and his lips. His hemoglobin is up to 6.6 and the patient is currently receiving a unit of packed RBC. No clear evidence of any GI bleed. He has a fecal management system in place. No diarrhea. Meanwhile, his cardiac rhythm and remained sinus. No episodes of A. fib/flutter since yesterday. He is currently on oral amiodarone. He is also on metoprolol and the dose has been reduced and infected was held as the patient is still requiring Santosh-Synephrine for hemodynamic support. His current Santosh- Synephrine dose is at 0.5 mg/kg/m and this could be weaned off. IV fluid maint enance is normal saline at the rate of 10 mL an hour. Patient was reevaluated today on 10/06/2020, patient remains in the ICU, intubated and mechanically ventilated, he has had a tracheostomy placed and he had a PEG tube placed. Patient has been off sedation for over a week, however his mental status does not seem to be improving much. Being followed by neurology. He is on assist control rate of 32, tidal volume is 420 FiO2 60% and rate of 13. FiO2 was decreased down to 55% after reviewing his ABG. ABG showed a pO2 of 82 pCO2 of 49 pH of 7.24 hence his FiO2 was decreased down to 55%. Chelsi rico is still being considered for hemodialysis. He is quite edematous, and he has very poor urine output. In spite of diuretics. Nephrology is addressing the issue of hemodialysis, and he is yet to be seen by vascular surgery for dialysis catheter placement. His IV fluid is at 10 mL/h. Patient has been in the hospital for 33 days, patient had a trach and PEG on 09/22 chest x-ray continues to show bilateral infiltrates. And again he is oliguric. Patient is growing MRSA around the site of the tracheostomy and around the PEG tube. He is on Zyvox. Patient is off Santosh-Synephrine. His enteral feeding has been on hold, however I see no reason to hold his enteral feeding, and we will restart his enteral feeding slowly. Via PEG tube. Continues to have some ongoing mucosal lesions or bleeding from the mouth and tongue as well as the lips., Hemoglobin today is 7.5. WBC count is 17.1. BUN is 149 creatinine is 3.84, liver enzymes are elevated with AST of 211 ALT of 266 and alkaline phosphatase of 128. Patient was reevaluated today on 10/07/2020, remains intubated and mechanically ventilated, however the patient has a tracheostomy in place, and a PEG tube in place. Remains off sedation, remains unresponsive to any stimuli. Patient had dialysis yesterday, and 1 L of fluid was removed. His ventilator settings are assist control rate of 3 2001 is 420 FiO2 50% and PEEP of 13. Peak airway pressure is 38 and plateau pressure is 32. Hence his rate was increased to 36. Based on the fact that his ABG continues to show some respiratory and metabolic acidosis his pO2 is 70 pCO2 is 53 pH of 7.22. IV fluid is at KVO. Patient again remains off sedation and he remains comatose. Tube feeding is at goal. Patient is still receiving free water flushes. Chest x-ray no major change is noted continues to show bilateral infiltrates. WBC count today is 15.5 hemoglobin is 8.2 ABG showed a pO2 of 70 pCO2 of 53 pH of 7.22 BUN today is down to 124 creatinine is down to 3.53, liver enzymes remain borderline elevated. We'll request an ammonia level since his liver enzymes remain elevated. Patient remains on Zyvox and cefepime, the secretions around the trach were methicillin-resistant staph aureus positive and the Gram stain as well as culture from the area around the PEG tube is also positive for MRSA. Hence we'll continue Zyvox. Patient was reevaluated today on 10/08/2020, patient is basically about the same, no major change in the last 24 hours. Remains intubated and mechanically ventilated, remains off sedation completely. His assist-control rate is 36 down volume is 420 FiO2 is 50% and PEEP remains at 13. ABG today showed a pO2 of 67 pCO2 of 46 pH of 7.27 remains on IV fluid at KVO, remains on hemodialysis almost on a daily basis, and discussed with nephrology to have the dialysis every other day and eventually hopefully arrange for the patient for placement. Yesterday patient had hemodialysis and 1 L was taken off. He is on enteral feeding using Nepro 33 mL per hour. Patient continues to have a hemodialysis catheter in the right groin. Remains unresponsive to any stimuli. Patient opens eyes, but does not respond to any stimuli. Again he is still off sedation completely. Chest x-ray basically showed no change,infiltrates noted throughout both lungs. Slight improvement of aeration in right lower lobe. CBC showed WBC of 8.9 hemoglobin is 7.6, electrolytes are normal bicarb is 20 BUN is 95 creatinine 2.65. Ammonia level which I ordered yesterday was 18. Objective - Vital Signs Vital signs: Vital Signs Temp 99.2 F 10/08/20 08:00 Pulse 75 10/08/20 10:00 Resp 38 H 10/08/20 11:24 BP 104/41 10/08/20 11:24 Pulse Ox 92 L 10/08/20 10:00 Intake & Output 10/07/20 10/08/20 10/08/20 18:59 06:59 18:59 Intake Total 642 992 314.443 Output Total 25 5 2505 Balance 617 987 -2190.557 Weight 110.9 kg 110.8 kg Intake: IV 156 506 52 .9 120 120 40 Cefepime 1 gm In Sodium 50 Chloride 0.9% 50 ml @ 12. 5 mls/hr IVPB Q12HR [facility] Rx#:[id number] Linezolid 600 mg In 300 Dextrose/Water 1 300ml. bag @ 150 mls/hr IVPB Q12HR SPENSER Rx#:[id number] Normal Saline Pressure 36 36 12 bag Intake, IV Titration 0.443 Amount Phenylephrine 40 mg In 0.443 Sodium Chloride 0.9% 250 ml @ 0.5 MCG/KG/MIN 17. 697 mls/hr IV .[id number] SPENSER Rx#:[id number] Tube Feeding 396 396 132 Other 90 90 130 Output: Urine 25 5 5 Hemodialysis 2500 Other: Voiding Method Indwelling Catheter Indwelling Catheter Indwelling Catheter ABP, PAP, CO, CI - Last Documented Arterial Blood Pressure 88/47 - Exam GENERAL EXAM: Revealed 54-year-old male intubated and mechanically ventilated, via tracheostomy, patient is off sedation and remains unresponsive HEAD: Normocephalic. Atraumatic, tracheostomy is intact. EYES: PERRLA, EOMI, nonicteric.. THROAT: Multiple superficial erosions noted in the mucosa of the mouth, no active bleeding anymore. NECK: No masses, no JVD. CHEST: No chest wall deformity. LUNGS: Crackles, mostly at the bases. Scattered rhonchi are noted. CVS: S1 and S2 normal with no audible murmur, regular rhythm Abdomen: Soft nontender no megaly. PEG tube is noted. Purulent secretions around the PEG tube. Musculoskeletal: No deformities. Did not assess range of motion. SKIN: No rashes CENTRAL NERVOUS SYSTEM: Awake, but does not follow any instructions. Opens eyes with painful stimuli. EXTREMITIES: 2+ bipedal edema, bipedal edema is basically unchanged. no cyanosis. Good pulses bilaterally Psychiatric: Unable to assess. - Labs CBC & Chem 7: 10/08/20 04:55 10/08/20 04:55 Labs: Abnormal Lab Results - Last 24 Hours (Table) 10/07/20 10/08/20 10/08/20 Range/Units 17:52 00:05 04:55 RBC 2.44 L (4.30-5.90) m/uL Hgb 7.6 L (13.0-17.5) gm/dL Hct 23.6 L (39.0-53.0) % RDW 18.4 H (11.5-15.5) % Plt Count 100 L (150-450) k/uL Neutrophils # (Manual) 8.60 H (1.3-7.7) k/uL Lymphocytes # (Manual) 0.27 L (1.0-4.8) k/uL Metamyelocytes # (Man) 0.09 H (0) k/uL Nucleated RBCs 3 H (0-0) /100 WBC ABG pH (7.35-7.45) ABG pCO2 (35-45) mmHg ABG pO2 (83-108) mmHg ABG O2 Saturation (94-97) % Sodium (137-145) mmol/L Carbon Dioxide (22-30) mmol/L BUN (9-20) mg/dL Creatinine (0.66-1.25) mg/dL Glucose (74-99) mg/dL POC Glucose (mg/dL) 163 H 176 H (75-99) mg/dL Calcium (8.4-10.2) mg/dL AST (17-59) U/L ALT (4-49) U/L Total Protein (6.3-8.2) g/dL Albumin (3.5-5.0) g/dL 10/08/20 10/08/20 10/08/20 Range/Units 04:55 04:58 05:50 RBC (4.30-5.90) m/uL Hgb (13.0-17.5) gm/dL Hct (39.0-53.0) % RDW (11.5-15.5) % Plt Count (150-450) k/uL Neutrophils # (Manual) (1.3-7.7) k/uL Lymphocytes # (Manual) (1.0-4.8) k/uL Metamyelocytes # (Man) (0) k/uL Nucleated RBCs (0-0) /100 WBC ABG pH 7.27 L (7.35-7.45) ABG pCO2 46 H (35-45) mmHg ABG pO2 67 L (83-108) mmHg ABG O2 Saturation 92.2 L (94-97) % Sodium 135 L (137-145) mmol/L Carbon Dioxide 20 L (22-30) mmol/L BUN 95 H (9-20) mg/dL Creatinine 2.65 H (0.66-1.25) mg/dL Glucose 141 H (74-99) mg/dL POC Glucose (mg/dL) 153 H (75-99) mg/dL Calcium 7.8 L (8.4-10.2) mg/dL AST 149 H (17-59) U/L ALT 220 H (4-49) U/L Total Protein 4.0 L (6.3-8.2) g/dL Albumin 2.0 L (3.5-5.0) g/dL Microbiology - Last 24 Hours (Table) 10/02/20 12:20 Blood Culture - Preliminary Blood No Growth after 120 hours Assessment and Plan Assessment: Impression: Acute hypoxic respiratory failure secondary to acute COVID-19 pneumonia with ARDS. Patient received toci, and convalescent plasma, patient had a prolonged ICU course, requiring prolonged mechanical ventilation, and eventually tracheostomy as noted below. Failure to wean, required tracheostomy and PEG tube placement on 09/22. MRSA pneumonia is suspected. Patient is presently on Zyvox. Secretions around the tracheostomy and PEG tube were positive for MRSA. Unresponsive, comatose, EEG consistent with acute toxic metabolic encephalopathy without any seizure activity. Non-ST elevation myocardial infarction Acute kidney injury with worsening renal failure, presently on hemodialysis since yesterday. Started hemodialysis on 10/06/2020. Electrolytes imbalance, improving. Being addressed accordingly. Acute on chronic anemia, possible GI blood losses, as well as ongoing phlebotomy with blood loss. Elevated inflammatory markers secondary to above Benign essential hypertension Former smoker. New onset atrial fibrillation with RVR. Requiring treatment with amiodarone. Presently in normal sinus rhythm. Recommendation:. Continue present supportive care measures Continue hemodialysis. We'll discuss with nephrology if this could be done on every other day basis. Continue aranesp Continue ventilatory support, and tracheostomy care. No changes made in the vent settings today. Continue albuterol. Continue amiodarone. Continue GI prophylaxis. Resume enteral feeding slowly. Via PEG tube Continue steroids. Prednisone 30 mg daily. Resume Lovenox 30 mg subcu daily Patient received convalescent plasma and toci Continue to monitor electrolytes. Continue Zyvox. Continue cefepime. Continue to daily assessment of neurologic status. Continue GI and DVT prophylaxis Discussed with adoption social worker possible placement however patient will need to be on every other day dialysis to be considered for transfer to [facility]. Patient remains critically ill, critical care time is over 30 minutes. Time with Patient: Greater than 30
[2020-10-08] MEDS ORDERED: MIDODRINE 5 MG TAB PO SCH (12:30)
--- NOTE | 2020-10-08 14:32 | P.PN ---
Subjective Progress Note Date: 10/08/20 This is a 54-year-old male who was recently admitted with acute hypoxic respiratory failure secondary to COVID-19 pneumonia and is being closely monitored. Continues to remain on mechanical ventilation currently sedated. Patient has had prolonged hospitalization with unsuccessful attempts at weaning and surgery has been consulted for tracheostomy along with PEG tube placement. Patient was on D5 water for hypernatremia and will be discontinued. Tube feedings on hold for surgery today and will resume once PEG tube is okay for use. Per nursing staff patient has also been in the prone position since yesterday evening into this morning and tolerated. Amiodarone has also been discontinued as patient is currently bradycardic. Pulmonary key punch operator following closely. Patient is maintained on sliding scale and will monitor closely once tube feedings have resumed. 09/23/2020 Patient is seen in follow-up continues to be closely monitored in the ICU maintained on mechanical vent via tracheostomy as he underwent trach and PEG tube placement yesterday with surgery. Tube feedings to resume via PEG tube this afternoon after clearance from surgery. Chest x-ray today shows bilateral multifocal and confluent opacities left greater than right consistent with COVID-19 again redemonstrated with no significant change from yesterday. Pulmonary also following. White blood count at 20.9, hemoglobin is 11.3, current sodium is 138 with a potassium of 5.2, and creatinine is 0.83. 09/24/2020 Patient continues to be intubated and sedated in the ICU status post tracheostomy and PEG tube placement. Tube feedings have been resumed and patient is tolerating. Chest x-ray today shows continued patchy airspace infiltrates although there is interval improvement noted. Pulmonary following closely. White blood count slightly elevated at 23.2 patient is maintained on IV Solu-Medrol every 6 hours. Sodium 143 with a potassium of 5.0 and current creatinine is 0.84. 09/25/2020 Patient continues to be in the ICU on mechanical ventilation intubated via tracheostomy and continued on sedation and is being closely monitored. PEEP being titrated down slowly and patient continues on Nimbex along with propofol and fentanyl. White blood count on a downward trend 17.2 with hemoglobin of 9.7, sodium is 144 with a potassium of 4.9 and current creatinine is 0.95. FiO2 remains at 50 and maintaining 87 and 90% oxygen saturation. Social work also following and discussion with family about possible LTAC placement. 09/26/2020 Patient is seen in follow-up continues to be closely monitored in the ICU. Patient is off of Nimbex since yesterday and tolerating. Patient continues to be sedated and pulmonary key punch operator following closely and working on weaning FiO2 as tolerated. FiO2 has been decreased to 50 and PEEP continues at 17. Patient's calcium was low on this morning's labs at 4.9 and was given a dose of calcium gluconate. Patient labs this morning show sodium of 143 with a potassium of 3.5 and creatinine is 0.57, LDH is 1027, CRP is 8.7 and magnesium is 1.9. Continue with electrolyte replacement per protocol. His repeat potassium this afternoon as showing 6.0 may potentially be a hemolyzed sample and will redraw and monitor closely. Patient did receive that Braden supplementation from this morning's labs as it was 3.5. 09/27/2020 The patient remains on the mechanical ventilator. His vent settings include assist control mode, rate 32, tidal volume 420, FiO2 50%, and PEEP of 17. Arterial blood gases show pO2 61, pCO2 56, pH 7.38. The patient's currently on propofol at 35 mcg/kg/m, and fentanyl 1.5 mcg/kg per hour. The patient's getting saline at KVO, and tube feedings with Nepro at 25 mL an hour which is goal. Chest x-ray is stable. Shows bilateral diffuse infiltrates. White count 18.1, he will 9.7, hematocrit 30.2, platelet count 175,000. D-dimer is 1.27. Sodium 144, potassium 4.1, chlorides 118, CO2 27, BUN 42, creatinine 0.78. LDH is 1528, and C-reactive protein is 13.5. 09/28/2020 patient is seen in follow-up in the intensive care unit. HRemains intubated and on mechanical ventilator. He had undergone tracheostomy tube and PEG tube placements on 09/22/2020. He is sedated on propofol at 40 mcg/kg/m. Fentanyl at 1.5 mcg/mg per hour. 0.9 normal saline at KVO. He is being nourished with Nepro at 25 ML's per hour which is goal. Free water flushes at 30 MLS every 4 hours. He's had daily interruption of sedation. Once off sedation his blood pressure goes up to 200 systolic range. Today's chest x-ray reveals stable bilateral diffuse interstitial infiltrates. He has received 1 unit of convalescent plasma. Blood cultures reveal no growth. White count 15.5. Hemoglobin 8.8. Platelets 160. Sodium 142. Potassium 4.9. Creatinine 0.86. He has continued on Solu-Medrol, Lovenox, vitamin supplements. Prognosis remains guarded. 09/29/2020 Patient is seen in follow-up continues to be in the ICU intubated and sedated. Patient is off Nimbex with attempts at sedation holiday and having rebound blood pressure issues and placed on labetalol. Continues on IV Solu-Medrol along with vitamin and zinc supplements and Lovenox and will continue. FiO2 down to 50 and PEEP of 13. Pulmonary following closely. Patient continues with intermittent low-grade temps and elevated white count. D-dimer today is 1.57, sodium is 145, potassium is 4.6, current creatinine is 0.86. Inflammatory markers are elevated along with CRP and probe calcitonin. 09/30/2020 Patient is seen in follow-up currently remains in the ICU intubated and off sedation but no activity noted. Patient is not responding to commands and CT of the brain is ordered showing age-related atrophic and chronic small vessel ischemic change without any acute intracranial process along with the neck and chest CT continues to show groundglass opacities. Patient is off of labetalol and continues on that now. Propofol has been discontinued. Steroids transition to oral and given via PEG tube and continues on tube feedings which he is tolera ting. White blood count continues to be elevated at 21.7 and hemoglobin is 10.3, sodium is 147 and will increase free water flushes with tube feedings and monitor sodium closely. Potassium is 4.5. 10/01/2020 Patient continues to be closely monitored in the ICU and maintained off of sedation and remains unresponsive with very minimal brainstem reflexes otherwise not responding to painful stimulation or voice. Continue with free water flushes and monitor hypernatremia closely as sodium was elevated at 148 today. Continue with half normal saline at 75 ML per hour. D-dimer elevated at 3.48 today. White blood count also 22.7, hemoglobin is 9.6, creatinine elevated at 1.31, and sodium is 4.7. LDH slightly trending down at 2244 also CRP is up at 20.5. Chest x-ray today shows patchy. Hilar and basilar infiltrates persist without significant change. Will have neurology reevaluate the patient as he continues to be unresponsive and off sedation for 48 hours now. 10/02/2020 Patient is seen in follow-up continues to be closely monitored in the ICU and also continues off sedation and continues to be unresponsive. EEG was done which was abnormal showing no epileptiform activity and some background slowing of at least moderate degree suggestive of generalized cerebral dysfunction as can be seen in toxic metabolic encephalopathy or due to diffuse structural brain abnormalities. Patient's sodium is 144 today with a potassium of 4.6 and creatinine worsening at 2.08 and continues on half normal saline. White blood count elevated at 25.4 and continues with low-grade intermittent temps and showing MRSA in the sputum and was started on Zyvox. Patient also having some possible SVT and was given adenosine although appears to be atrial flutter and Cardizem was initiated although having low blood pressures which was discontinued. Patient is now on amiodarone drip along with heparin drip and cardiology following. 10/03/2020 Patient is seen this morning with key punch operator also at the bedside and continues to be closely monitored in the ICU. Continues off of all sedatives and continues to be unresponsive with no activity noted. Multiple medical consultations following including neurology, cardiology, pulmonary, and nephrology now consulted as patient has worsening creatinine and is currently 2.39 with a BUN of 105. Sodium improved at 138 and potassium is 4.5. Liver f unctions also worsening. Patient remains on a heparin drip and amiodarone has been transitioned oral amiodarone. Continues on oral prednisone and vitamin and zinc supplements and will continue. Patient's IV fluids are 0.45 at 75 ML per hour. Will await neuro consult. Patient has generalized edema bilateral upper and lower extremities and being started on IV Lasix Need to discuss with family about CODE STATUS as prognosis remains extremely guarded. 10/04/2020 Patient has a extensive prolonged hospitalization for more than 30 days patient presently has tracheostomy and PEG tube in place patient has secondary bacterial pneumonia with the staph aureus and patient is on linezolid did patient has very minimal or no urine output continues to have renal dysfunction and worsening creatinine nephrology is following the patient and patient was started on Lasix. She and is presently on ventilatory support assist-control ventilation set up respiratory 22 titer volume 420 people 13 FiO2 of 70% patient has been off sedation in spite of which patient is unresponsive and comatose brainstem re flexes are present no particle function EEG showed diffuse encephalopathy. Computed tomography scan that was done yesterday showed chronic microvascular ischemic changes neurology is following the patient as well. Patient chest x- ray still showing pulmonary infiltrates. he is on amiodarone for atrial flutter/fibrillation. Patient was on IV heparin which was now discontinued 10/05/2020 Patient's overall clinical condition is much worse today patient doesn't have any new significant neurological improvement. Patient's hemoglobin did drop receiving 11 unit of PRBC transfusion presently around the 6.5 there is no acute GI bleed or any other source of acute bleed. The patient remains on no steroids. Patient tracheostomy site appears to be dye history because of which the surgery evaluated the patient back as Selsun Blue is being applied. Patient has MRSA in the sputum patient is presently on Zyvox as well as cefepime. Chest x-ray showing worsening infiltrates. Creatinine did go up to 3 with highly elevated BNP patient remains on Lasix at this time patient will undergo dialysis catheter placement tomorrow, patient does have a fecal management system receiving tube feeding through peg tube white blood cell count continued to be high but improved to 23,000. Patient is presently sinus rhythm remains on amiodarone patient is on vasopressin at 0.5 mg/kg/m which is being weaned off patient remains on ventilator support with tidal volume of 420 peep of 13 FiO2 60%. Beater Engineer Helper had an extensive discussion with the family family wanted to continue care. 10/06/2020 Patient is seen and evaluated continues to be closely monitored in the ICU currently receiving catheter placement for hemodialysis as kidney functions continue to worsen and nephrology following. Multiple consultations following. Sodium today is 133 with a potassium of 5.2 BUN is 149 with the current cr eatinine of 3.84. Liver functions continue to be elevated although slightly trending down. Urine output very minimal and continues to be edematous and on IV Lasix. Patient remains on Zyvox and cefepime as there is MRSA in the sputum. Hemoglobin is 7.5. Neurologically only occasionally opening eyes and does not follow commands. Prognosis remains extremely guarded 10/07/2020 Patient is seen in follow-up being closely monitored in the ICU with multiple medical consultations following closely. Patient received hemodialysis yesterday with 1 L removed and will continue with possible daily treatments of hemodialysis and nephrology following closely. IV Lasix has been discontinued. Patient continues on IV Zyvox along with cefepime as his cultures have been positive for MRSA. Hemoglobin 8.2 today and white blood count 15.5, sodium is 131 with a potassium of 5.0, BUN is 124 with the creatinine being 3.53. Patient is afebrile. Patient continues to be tachypneic. Patient remains unresponsive and continues to be off sedation. Neurology is following. 10/08/2020 Patient is seen and evaluated this morning continues to be closely monitored in the ICU. Patient is receiving dialysis currently and nephrology following closely. Hemoglobin is 7.6, white blood count is 8.9, sodium is 135 with a potassium of 4.4, and creatinine trending down at 2.65. Pulmonary following closely as well and patient continues on IV antibiotics for MRSA in the sputum in the form of Zyvox and cefepime. Patient is on norepinephrine drip for low blood pressures and continues to be closely monitored. Patient's prognosis is extremely guarded and family continues to wish for full CODE STATUS. Chest x- ray today shows continued airspace infiltrates throughout both lung bobo with improved aeration in the right lower lobe. Patient continues to be off sedation and remains unresponsive and not following any commands. Review of systems: Unable to obtain as patient continues to be intubated and s edated Active Medications Acetaminophen (Acetaminophen Tab 325 Mg Tab) 650 mg PO Q6HR PRN PRN Reason: Fever and/ or Pain Last Admin: 09/16/20 11:48 Dose: 650 mg Documented by: Albuterol Sulfate (Albuterol Hfa Inhaler) 2 puff INHALATION RT-QID [facility] Last Admin: 10/08/20 11:50 Dose: 2 puff Documented by: Amiodarone HCl (Amiodarone 100 Mg Tab) 100 mg PO BID [facility] Last Admin: 10/08/20 08:28 Dose: 100 mg Documented by: Artificial Tears (Artificial Tears-Hypromellose Drops 15 Ml Btl) 2 drops BOTH EYES QID [facility] Last Admin: 10/08/20 13:33 Dose: 2 drops Documented by: Ascorbic Acid (Ascorbic Acid 500 Mg Tab) 500 mg PO BID [facility] Last Admin: 10/08/20 08:30 Dose: 500 mg Documented by: Aspirin (Aspirin 81 Mg) 81 mg PO DAILY [facility] Last Admin: 10/08/20 08:28 Dose: 81 mg Documented by: Atorvastatin Calcium (Atorvastatin 80 Mg Tab) 80 mg PO DAILY [facility] Last Admin: 10/08/20 08:28 Dose: 80 mg Documented by: Calcium Acetate (Calcium Acetate 667 Mg Tab) 667 mg PO TID-W/MEALS [facility] Last Admin: 10/08/20 13:33 Dose: 667 mg Documented by: Chlorhexidine Gluconate (Chlorhexidine Gluconate 15 Ml Cup) 15 ml MUCOUS MEM BID [facility] Last Admin: 10/08/20 08:28 Dose: 15 ml Documented by: Cholecalciferol (Cholecalciferol 25 Mcg (1000 Iu) Tablet) 125 mcg PO DAILY [facility] Last Admin: 10/08/20 08:28 Dose: 125 mcg Documented by: Darbepoetin Beau (Darbepoetin Beau 40 Mcg/0.4 Ml Syringe) 40 mcg SQ Q7D [facility] Last Admin: 10/05/20 09:17 Dose: 40 mcg Documented by: Famotidine (Famotidine 20 Mg Tab) 20 mg PO DAILY [facility] Last Admin: 10/08/20 08:29 Dose: 20 mg Documented by: Linezolid 600 mg/ IV Solution 300 mls @ 150 mls/hr IVPB Q12HR [facility]; Protocol Last Admin: 10/08/20 08:42 Dose: 150 mls/hr Documented by: Cefepime HCl 1 gm/ Sodium (Chloride) 50 mls @ 12.5 mls/hr IVPB Q12HR [facility] Last Admin: 10/08/20 08:30 Dose: 12.5 mls/hr Documented by: Norepinephrine Bitartrate 8 mg (/ Sodium Chloride) 258 mls @ 10.72 mls/hr IV .Q24H [facility]; Protocol Last Admin: 10/08/20 11:03 Dose: 0.05 mcg/kg/min, 10.72 mls/hr Documented by: Insulin Aspart (Insulin Aspart (Novolog) 100 Unit/Ml Vial) 0 unit SQ Q6HR [facility]; Protocol Last Admin: 10/08/20 13:33 Dose: 1 unit Documented by: Metoprolol Tartrate (Metoprolol Tartrate 12.5 Mg Tab) 12.5 mg PO DAILY [facility] Last Admin: 10/08/20 08:29 Dose: 12.5 mg Documented by: Nitroglycerin (Nitroglycerin Sl Tabs 0.4 Mg Tab) 0.4 mg SUBLINGUAL Q5M PRN PRN Reason: Chest Pain Last Admin: 09/07/20 03:35 Dose: 0.4 mg Documented by: Prednisone (Prednisone 10 Mg Tab) 30 mg PO DAILY [facility] Promethazine HCl (Promethazine Hcl 6.25 Mg/5 Ml Cup) 12.5 mg PO QID PRN PRN Reason: Cough Last Admin: 09/06/20 02:07 Dose: 12.5 mg Documented by: Zinc Sulfate (Zinc Sulfate 220 Mg Cap) 220 mg PO DAILY [facility] Last Admin: 10/08/20 08:29 Dose: 220 mg Documented by: Objective - Vital Signs Vital signs: Vital Signs Temp 98.3 F 10/08/20 12:00 Pulse 76 10/08/20 13:00 Resp 30 H 10/08/20 13:00 BP 129/54 10/08/20 13:00 Pulse Ox 92 L 10/08/20 13:00 Intake & Output 10/07/20 10/08/20 10/08/20 18:59 06:59 18:59 Intake Total 642 992 482.443 Output Total 25 5 2510 Balance 617 987 -2027.557 Weight 110.9 kg 110.8 kg Intake: IV 156 506 91 .9 120 120 70 Cefepime 1 gm In Sodium 50 Chloride 0.9% 50 ml @ 12. 5 mls/hr IVPB Q12HR [facility] Rx#:[id number] Linezolid 600 mg In 300 Dextrose/Water 1 300ml. bag @ 150 mls/hr IVPB Q12HR [facility] Rx#:[id number] Normal Saline Pressure 36 36 21 bag Intake, IV Titration 0.443 Amount Phenylephrine 40 mg In 0.443 Sodium Chloride 0.9% 250 ml @ 0.5 MCG/KG/MIN 17. 697 mls/hr IV .[id number] [facility] Rx#:[id number] Tube Feeding 396 396 231 Other 90 90 160 Output: Urine 25 5 10 Hemodialysis 2500 Other: Voiding Method Indwelling Catheter Indwelling Catheter Indwelling Catheter ABP, PAP, CO, CI - Last Documented Arterial Blood Pressure 100/33 - Exam GENERAL: patient has a tracheostomy and ventilatory support patient has a gaping hole around the tracheostomy site . Temp is 98.3F, pulse is 62, respirations are 32, blood pressure is 138/61, oxygen saturation is 87-92% with an FiO2 of 50 HEENT: patient does have occasional brainstem reflexes with eye opening, No conjunctival pallor. Normocephalic, atraumatic. No pharyngeal erythema. No thyromegaly. Occasional eye opening, halitosis noted CARDIOVASCULAR: S1 and S2 muffled PULMONARY: Diminished breath sounds bilaterally with scattered crackles and rhonchi noted. ABDOMEN: Soft, nontender, nondistended, normoactive bowel sounds. No palpable organomegaly. PEG tube is in place MUSCULOSKELETAL: No joint swelling or deformity. EXTREMITIES: No cyanosis, clubbing, generalized edema noted of upper and lower extremities NEUROLOGICAL: Patient is not moving any of his limbs, continues to be off sedation and not following any commands, unresponsive SKIN: No rashes. - Labs CBC & Chem 7: 10/08/20 04:55 10/08/20 04:55 Labs: Abnormal Lab Results - Last 24 Hours (Table) 10/07/20 10/08/20 10/08/20 Range/Units 17:52 00:05 04:55 RBC 2.44 L (4.30-5.90) m/uL Hgb 7.6 L (13.0-17.5) gm/dL Hct 23.6 L (39.0-53.0) % RDW 18.4 H (11.5-15.5) % Plt Count 100 L (150-450) k/uL Neutrophils # (Manual) 8.60 H (1.3-7.7) k/uL Lymphocytes # (Manual) 0.27 L (1.0-4.8) k/uL Metamyelocytes # (Man) 0.09 H (0) k/uL Nucleated RBCs 3 H (0-0) /100 WBC ABG pH (7.35-7.45) ABG pCO2 (35-45) mmHg ABG pO2 (83-108) mmHg ABG O2 Saturation (94-97) % Sodium (137-145) mmol/L Carbon Dioxide (22-30) mmol/L BUN (9-20) mg/dL Creatinine (0.66-1.25) mg/dL Glucose (74-99) mg/dL POC Glucose (mg/dL) 163 H 176 H (75-99) mg/dL Calcium (8.4-10.2) mg/dL AST (17-59) U/L ALT (4-49) U/L Total Protein (6.3-8.2) g/dL Albumin (3.5-5.0) g/dL 10/08/20 10/08/20 10/08/20 Range/Units 04:55 04:58 05:50 RBC (4.30-5.90) m/uL Hgb (13.0-17.5) gm/dL Hct (39.0-53.0) % RDW (11.5-15.5) % Plt Count (150-450) k/uL Neutrophils # (Manual) (1.3-7.7) k/uL Lymphocytes # (Manual) (1.0-4.8) k/uL Metamyelocytes # (Man) (0) k/uL Nucleated RBCs (0-0) /100 WBC ABG pH 7.27 L (7.35-7.45) ABG pCO2 46 H (35-45) mmHg ABG pO2 67 L (83-108) mmHg ABG O2 Saturation 92.2 L (94-97) % Sodium 135 L (137-145) mmol/L Carbon Dioxide 20 L (22-30) mmol/L BUN 95 H (9-20) mg/dL Creatinine 2.65 H (0.66-1.25) mg/dL Glucose 141 H (74-99) mg/dL POC Glucose (mg/dL) 153 H (75-99) mg/dL Calcium 7.8 L (8.4-10.2) mg/dL AST 149 H (17-59) U/L ALT 220 H (4-49) U/L Total Protein 4.0 L (6.3-8.2) g/dL Albumin 2.0 L (3.5-5.0) g/dL 10/08/20 Range/Units 12:21 RBC (4.30-5.90) m/uL Hgb (13.0-17.5) gm/dL Hct (39.0-53.0) % RDW (11.5-15.5) % Plt Count (150-450) k/uL Neutrophils # (Manual) (1.3-7.7) k/uL Lymphocytes # (Manual) (1.0-4.8) k/uL Metamyelocytes # (Man) (0) k/uL Nucleated RBCs (0-0) /100 WBC ABG pH (7.35-7.45) ABG pCO2 (35-45) mmHg ABG pO2 (83-108) mmHg ABG O2 Saturation (94-97) % Sodium (137-145) mmol/L Carbon Dioxide (22-30) mmol/L BUN (9-20) mg/dL Creatinine (0.66-1.25) mg/dL Glucose (74-99) mg/dL POC Glucose (mg/dL) 134 H (75-99) mg/dL Calcium (8.4-10.2) mg/dL AST (17-59) U/L ALT (4-49) U/L Total Protein (6.3-8.2) g/dL Albumin (3.5-5.0) g/dL Microbiology - Last 24 Hours (Table) 10/02/20 12:20 Blood Culture - Preliminary Blood No Growth after 120 hours Assessment and Plan Assessment: -Acute hypoxic respiratory failure secondary to Covid 19 pneumonia, extensive interstitial pneumonia on mechanical ventilation secondary bacterial bronchitis and pneumonia with MRSA. Patient to remains on ventilatory support, nutritional support via PEG tube -Comatose state with absence of cortical functions secondary to severe metabolic encephalopathy, no seizure activity noted -Status post PEG tube and tracheostomy placement -Acute kidney injury secondary to acute tubular necrosis with worsening creatinine -Sputum growing MRSA -Atrial fibrillation with fast ventricular rate: Patient is presently rate controlled on amiodarone -Change in mental status, acute metabolic encephalopathy -Drop in hemoglobin without any clinical evidence of acute blood loss status post 1 unit of PRBC. Probably secondary to frequent blood draws -Hypertension -Elevated troponin possibly secondary to type II acute myocardial infarction secondary to hypoxemia and COVID-19 -GI prophylaxis with Pepcid -DVT prophylaxis with Lovenox -Full code Recommendations and discussion: Recommend to continue with current medications and current ICU management. Patient continues to be off of paralytics and sedatives with no neurological response. Occasional sporadic eye opening, NOT following any commands. Patient being followed by multiple medical consultations and recently received hemodialysis port and is currently continuing with daily treatments with the possibility of transferring to every other day in the hopes of preparing for transfer to select specialties once stabilized. Patient continues on IV antibiotics in the form of Zyvox and cefepime for MRSA in the sputum along with the cultures around the tracheostomy and PEG tube site. Pulmonary, neurology, and cardiology also following. Patient has had prolonged hospitalization requiring tracheostomy and PEG tube placement and has started hemodialysis. Family wishes are for to continue with CODE STATUS a full code. Due to multiple complex medical issues prognosis remains extremely guarded. Further recommendations to follow based on the clinical course the patient. Time with Patient: Greater than 30
[2020-10-08 17:42] LABS: Glucose,Whole Blood 114 mg/dL (75-99)
[2020-10-08 23:35] LABS: Glucose,Whole Blood 145 mg/dL (75-99)
[2020-10-09 04:38] LABS: ABG Base Excess -10.9 mmol/L; ABG HCO3 18 mmol/L (21-25); ABG PCO2 49 mmHg (35-45); ABG PO2 61 mmHg (83-108); ABG TCO2 19 mmol/L (19-24); Allen Test Performed? Yes
[2020-10-09 04:40] LABS: ABG PH 7.17 (7.35-7.45)
[2020-10-09 05:11] LABS: Glucose,Whole Blood 130 mg/dL (75-99)
[2020-10-09] MEDS: INSULIN ASPART (NovoLOG) 100 UNIT/ML VIAL SQ SCH ×3 (05:12→18:06)
[2020-10-09 05:18] LABS: Anisocytosis Slight; HCT 23.3 % (39.0-53.0); HGB 7.5 gm/dL (13.0-17.5); Hypochromasia Moderate; MCH 31.6 pg (25.0-35.0); MCHC 32.1 g/dL (31.0-37.0); MCV 98.3 fL (80.0-100.0); Macrocytosis Slight; Platelet Count 116 k/uL (150-450); Poikilocytosis Slight; RBC 2.37 m/uL (4.30-5.90); RDW 18.8 % (11.5-15.5); WBC 13.7 k/uL (3.8-10.6)
[2020-10-09 06:50] LABS: Calcium 8.3 mg/dL (8.4-10.2); Potassium 4.5 mmol/L (3.5-5.1)
[2020-10-09] MEDS: ALBUTEROL HFA INHALER INHALATION SCH ×4 (07:20→19:54)
[2020-10-09] MEDS: NOREPINEPHRINE 8 MG in SODIUM CHLORIDE 0.9% 250 ML IV SCH ×2 (07:54→17:41)
[2020-10-09 08:30] VITALS: RESP 36
[2020-10-09] MEDS: CHLORHEXIDINE GLUCONATE 15 ML CUP MUCOUS MEM SCH (08:31)
[2020-10-09] MEDS: CHOLECALCIFEROL 25 MCG (1000 IU) TABLET PO SCH (08:31)
[2020-10-09] MEDS: AMIODARONE 100 MG TAB PO SCH (08:31)
[2020-10-09] MEDS: FAMOTIDINE 20 MG TAB PO SCH (08:32)
[2020-10-09] MEDS: ASPIRIN 81 MG PO SCH (08:32)
[2020-10-09] MEDS: ZINC SULFATE 220 MG CAP PO SCH (08:32)
[2020-10-09] MEDS: ATORVASTATIN 80 MG TAB PO SCH (08:32)
[2020-10-09] MEDS: CALCIUM ACETATE 667 MG TAB PO SCH ×3 (08:32→17:00)
[2020-10-09] MEDS: LINEZOLID 600 MG in DEXTROSE/WATER 1 300ML.BAG IVPB SCH (08:33)
[2020-10-09] MEDS: ASCORBIC ACID 500 MG TAB PO SCH (08:34)
[2020-10-09] MEDS: METOPROLOL TARTRATE 12.5 MG TAB PO SCH (08:34)
[2020-10-09] MEDS: CEFEPIME 1 GM in SODIUM CHLORIDE 0.9% 50 ML IVPB SCH (08:34)
[2020-10-09] MEDS: ARTIFICIAL TEARS-HYPROMELLOSE DROPS 15 ML BTL BOTH EYES SCH ×3 (08:35→18:06)
[2020-10-09] MEDS ORDERED: predniSONE 10 MG TAB PO SCH (09:00)
[2020-10-09] MEDS ORDERED: SODIUM BICARB 8.4% 50 ML SYR (1 MEQ/ML) IV STA (10:23)
--- NOTE | 2020-10-09 10:24 | P.PN ---
Subjective Patient is seen in follow-up for acute kidney injury. He is status post tracheostomy and PEG tube placement. No significant change in mentation. Patient tested positive for coronavirus. Also on antibiotics for MRSA pneumonia. Remains oliguric. Patient became tachycardic and hypotensive during hemodialysis this morning. Treatment was stopped. He is currently on vasopressor support. Vital signs: Hypotensive and tachycardic. HEENT: Tracheostomy noted. LUNGS: Breath sounds decreased. HEART: Tachycardic. ABDOMEN: Soft, no distention. EXTREMITITES: 2+ edema. Objective - Vital Signs Vital signs: Vital Signs Temp 99.2 F 10/09/20 08:00 Pulse 158 H 10/09/20 10:00 Resp 36 H 10/09/20 10:00 BP 100/66 10/09/20 10:00 Pulse Ox 89 L 10/09/20 10:00 Intake & Output 10/08/20 10/09/20 10/09/20 18:59 06:59 18:59 Intake Total 332.558 5098.630 375.768 Output Total 3010 0 0 Balance -2140.771 1100.630 375.768 Weight 109.9 kg Intake: IV 156 506 52 .9 120 120 40 Cefepime 1 gm In Sodium 50 Chloride 0.9% 50 ml @ 12. 5 mls/hr IVPB Q12HR [facility] Rx#:[id number] Linezolid 600 mg In 300 Dextrose/Water 1 300ml. bag @ 150 mls/hr IVPB Q12HR [facility] Rx#:[id number] Normal Saline Pressure 36 36 12 bag Intake, IV Titration 67.229 108.630 101.768 Amount Norepinephrine 8 mg In 66.786 108.630 101.768 Sodium Chloride 0.9% 250 ml @ 0.05 MCG/KG/MIN 10. 72 mls/hr IV .Q24H [facility] Rx #:[id number] Phenylephrine 40 mg In 0.443 Sodium Chloride 0.9% 250 ml @ 0.5 MCG/KG/MIN 17. 697 mls/hr IV .[id number] [facility] Rx#:[id number] Tube Feeding 396 396 132 Other 250 90 90 Output: Urine 10 0 0 Stool 500 Hemodialysis 2500 Other: Voiding Method Indwelling Catheter Indwelling Catheter ABP, PAP, CO, CI - Last Documented Arterial Blood Pressure 105/42 - Labs CBC & Chem 7: 05/13/21 05:00 10/09/20 05:00 Labs: Abnormal Lab Results - Last 24 Hours (Table) 10/08/20 10/08/20 10/08/20 Range/Units 12:21 17:41 23:33 WBC (3.8-10.6) k/uL RBC (4.30-5.90) m/uL Hgb (13.0-17.5) gm/dL Hct (39.0-53.0) % RDW (11.5-15.5) % Plt Count (150-450) k/uL ABG pH (7.35-7.45) ABG pCO2 (35-45) mmHg ABG pO2 (83-108) mmHg ABG HCO3 (21-25) mmol/L ABG O2 Saturation (94-97) % Chloride (98-107) mmol/L Carbon Dioxide (22-30) mmol/L BUN (9-20) mg/dL Creatinine (0.66-1.25) mg/dL Glucose (74-99) mg/dL POC Glucose (mg/dL) 134 H 114 H 145 H (75-99) mg/dL Calcium (8.4-10.2) mg/dL Phosphorus (2.5-4.5) mg/dL 10/09/20 10/09/20 10/09/20 Range/Units 04:32 05:00 05:00 WBC 13.7 H (3.8-10.6) k/uL RBC 2.37 L (4.30-5.90) m/uL Hgb 7.5 L (13.0-17.5) gm/dL Hct 23.3 L (39.0-53.0) % RDW 18.8 H (11.5-15.5) % Plt Count 116 L (150-450) k/uL ABG pH 7.17 L* (7.35-7.45) ABG pCO2 49 H (35-45) mmHg ABG pO2 61 L (83-108) mmHg ABG HCO3 18 L (21-25) mmol/L ABG O2 Saturation 88.0 L (94-97) % Chloride 110 H (98-107) mmol/L Carbon Dioxide 16 L (22-30) mmol/L BUN 79 H (9-20) mg/dL Creatinine 2.26 H (0.66-1.25) mg/dL Glucose 124 H (74-99) mg/dL POC Glucose (mg/dL) (75-99) mg/dL Calcium 8.3 L (8.4-10.2) mg/dL Phosphorus (2.5-4.5) mg/dL 10/09/20 10/09/20 Range/Units 05:00 05:09 WBC (3.8-10.6) k/uL RBC (4.30-5.90) m/uL Hgb (13.0-17.5) gm/dL Hct (39.0-53.0) % RDW (11.5-15.5) % Plt Count (150-450) k/uL ABG pH (7.35-7.45) ABG pCO2 (35-45) mmHg ABG pO2 (83-108) mmHg ABG HCO3 (21-25) mmol/L ABG O2 Saturation (94-97) % Chloride (98-107) mmol/L Carbon Dioxide (22-30) mmol/L BUN (9-20) mg/dL Creatinine (0.66-1.25) mg/dL Glucose (74-99) mg/dL POC Glucose (mg/dL) 130 H (75-99) mg/dL Calcium (8.4-10.2) mg/dL Phosphorus 5.5 H (2.5-4.5) mg/dL Microbiology - Last 24 Hours (Table) 10/02/20 12:20 Blood Culture - Final Blood No Growth after 144 hours Assessment and Plan Plan: Assessment: 1. Acute kidney injury secondary to ATN secondary to septic shock. Oliguric. Diuretic unresponsive. Baseline creatinine near 1. No hydronephrosis and kidney ultrasound. Started on hemodialysis October 06. 2. MRSA pneumonia maintained on antibiotics. 3. Acute hypoxic respiratory failure secondary to quit 19 pneumonitis. Status post tracheostomy and PEG tube placement this admission. 4. Hypernatremia from lack of oral water intake. Resolved. Now hyponatremic, hypervolemic. Stable. 5. A. fib with RVR. On oral amiodarone. 6. Shock, on vasopressor support again. 7. Acute blood loss anemia. Status post blood transfusion this admission. Also received IV DDAVP this admission. On Aranesp. 8. Hyperphosphatemia secondary to acute kidney injury. Maintained on PhosLo. 9. Volume overload. No improvement in urine output with IV Lasix. 10. Metabolic and respiratory acidosis. Plan: Patient became hypotensive and tachycardic during hemodialysis this morning. Treatment was terminated. Currently on vasopressor support. 2 A of sodium bicarb IV push now. Overall prognosis guarded. Comfort measures being discussed.
[2020-10-09 11:41] LABS: Glucose,Whole Blood 168 mg/dL (75-99)
--- NOTE | 2020-10-09 12:17 | P.PN ---
Subjective Progress Note Date: 10/09/20 Principal diagnosis: Acute hypoxic respiratory failure secondary to COVID-19 pneumonia and ARDS. 54-year-old white male patient who is an ex smoker, carries [id number] smoking history quit smoking 1 year ago in May, history of hypertension and gout who sees Dr. Contreras, presented to the emergency department on 08/02/2020 with complaints of worsening shortness of breath, cough, and patient was diagnosed with Covid 19 one week ago, was tested at [facility] per Dr. Contreras's order. 2 weeks ago he had symptoms of flulike illness, sore throat, shortness of breath, weakness, muscle aches which progressively became worse, and patient developed worsening shortness of breath and had difficulty breathing and ambulating at home. He was placed on Decadron [address] Contreras and he has 1-1/2 days worth left of it. Chest x-ray in the emergency department showed bilateral interstitial pneumonia. White blood cell count was 33.1, d-dimer was greater than 35.2, CO2 is 16, the rest of electrolytes were unremarkable, B1 is 35 creatinine is 1.04, plasma lactic acid is 4.5, patient was given IV fluids and lactic acid came down to 1.8, total bilirubin was 1.6, AST is 107, ALT is 48, alkaline phosphatase is 114, LDH is 5924, first troponin was 4.190, and the second one went up to 6.960. CRP is 180.3, pro-calcitonin level is 0.33, urinalysis showed 1+ protein, but no definite sign of infection, pulse ox is 86 on room air, patient has significant shortness of breath, and was placed on BiPAP support, currently with pressures of 12/6, and FiO2 of 100% on which he remains this morning, he is afebrile, hemodynamically he is stable, she was started on IV Decadron, we'll start him on intermediate dose of Lovenox 50 mg every 12 hours, CTA chest shows no evidence of pulmonary embolism, and extensive pulmonary infiltrates that are mostly interstitial consistent with severe interstitial pneumonia. Progress note dated 09/04/2020. 54-year-old male, admitted with a diagnosis of COVID 19 pneumonitis. Currently, he is on BiPAP at 12/6 and 90%. FiO2 will be dropped down to 80%. In addition, he is getting saline at 75 mL an hour. The patient's doing better today. He states that he feels better. He still short of breath with activity. I did tell him today to make sure he moves around in bed when he is laying in bed. White count 29.3, hemoglobin 14.6, hematocrit 42.7, platelet count 140,000. D- dimer greater than 34.10. Sodium 136, potassium 5.1, chlorides 105, CO2 25, anion gap 6, BUN 39, creatinine 0.9. LDH is 3965. C-reactive protein 143. Chest x-ray shows a worsening pattern of bilateral airspace disease. Progress note dated 09/05/2020. 54-year-old male, admitted with a diagnosis of COVID 19 pneumonitis. He remains on BiPAP with an FiO2 of 80%. Settings included an IPAP 12, EPAP 6. The patient states that he feels a bit better. He is getting saline at 75 mL an hour. He feels like he is breathing is improved. He does know to move about in bed. No new laboratory data today. His most recent chest x-ray was from yesterday and was reviewed. The patient's on appropriate medications. Progress note dated 09/06/2020. 54-year-old male, seen again today. The patient is on BiPAP, settings of IPAP 12, EPAP 6, and 90%. He is also getting saline at 75 mL an hour. Was admitted with a diagnosis of acute hypoxemic respiratory failure secondary to COVID 19 pneumonia. The patient feels about the same. No better or no worse. He will have a chest x-ray tomorrow. Labs are reviewed. White count 19.3, hemoglobin 15, hematocrit 43.9, and platelet count 92,000. Sodium 135, potassium 4.9, chlorides 109, CO2 20, anion gap 6, BUN 34, and creatinine 0.92. There is no recent chest x-ray to review. The patient is seen today 09/07/2020 in follow-up on the selective care unit. He is currently resting comfortably in bed. States he is doing a little better today compared to yesterday. He is still requiring BiPAP support 12/6 and 100% FiO2. Chest x-ray reveals stable bilateral lung infiltrates. Blood glucose 163. He remains on bronchodilators, vitamin supplements, dexamethasone, Lovenox. 0.9 normal saline at 75 ML's per hour. On 09/08/2020, the patient is being seen in follow-up on the [facility] units. The patient is a 54-year-old male patient with Covid 19 related pneumonia and the patient has diffuse stable by the pulmonary infiltrates. The patient remains on Decadron. The patient is also on Lovenox 40 mg subcu every 12 hours. The patient is also requiring BiPAP for respiratory support at a pressure of 12/6 cm of water and FiO2 of 100%. The patient is able to generate a tidal volume of 800 mL of the respiratory rate of 24 and a minute ventilation of 23 L. The patient Has elevated inflammatory markers and the last time the markers were checked were on 09/04/2020 with an LDH of 3965 and a CRP of 142. Levels will need to be rechecked. The d-dimer was above 34. The LDH level remains elevated at 3911. D-dimer is 24.6. The patient is also on IV fluids with normal saline at the rate of 75 mL an hour. The patient is on Decadron 6 because IV every 24 hours. The patient is also on Lovenox 40 mg subcu every 12 hours. His current BMI 31.5. On 09/09/2020, the patient is being seen for a follow-up. The patient continues to be on a BiPAP at a pressure of 12/6 cm of water with an FiO2 of 100%. The patient is awake and he requires assistance to be moved around. His tidal volume is in the order of 800 mL which is comparable to yesterday. A repeat chest x-ray was done and it shows some limited improvement in the bilateral pulmonary infiltrates. the patient remains on Decadron and the dose is currently at 60 mg IV every 12 hours. inflammatory markers are elevated with an LDH level of 3 911 and the CRP is 22.5. His d-dimer is still elevated at 24.6 and the patient is on Lovenox at a dose of 40 mg subcu every 12 hours.. On his problem continue to be the patient's hypoxemia, Covid 19 related pneumonia and global weakness. Unfortunately, the patient is unable to eat as the patient desaturates significantly was taken off the BiPAP. 09/10/2020 the patient remains BiPAP dependent at the pressure of 12/6 cm of water. His FiO2 is still 100%. He was still able to generate adequate tidal volumes while being on a BiPAP. He has had a PICC line yesterday as the patient was not meeting his caloric requirements and I was also contemplating the possibility of TPN. His chest x-ray remains unchanged with diffuse bilateral infiltrates consistent with Covid 19 related pneumonia. His blood work is showing a d-dimer of 24 from 2 days ago. Electrolytes are normal, and no new inflammatory markers. The current pulse ox is 92% on a BiPAP and the patient remains on Decadron 6 mg IV every 12 hours. 09/11/2020, the patient remains on a BiPAP at a pressure of 12/6 and FiO2 of 100%. He is quite lethargic. He is in mild degree of respiratory distress even at rest while on the BiPAP. Current pulse ox is 89%. A PICC line was inserted yesterday and the patient was also started on TPN for nutritional support knowing that he was able to eat and he was not meeting his caloric requirements. His d-dimer is 15. The patient is on Lovenox 50 mg subcu every 12 hours. The patient is also receiving Decadron 6 mg IV 12 hours. Current pulse ox is around 89%. No major changes condition since yesterday. No other new labs otherwise. His resting in bed comfortably. He is generating tidal volumes above >600cc with respiratory rate in the mid 20s. He had no signs of any fluid overload. Mentation is preserved. Looks lethargic. He is able to answer questions and following commands. No other significant issues otherwise for now. I will today's condition is essentially stable since yesterday. 09/12/2020 the patient remains on BiPAP 12/6 cm of water with an FiO2 of 100%. Condition is essentially the same and unchanged compared to yesterday. The patient is currently on a pulse ox of 94% on above-mentioned BiPAP setting. He remains on Decadron 6 mg IV every 12 hours. He also is on Lovenox 50 mg subcu every 12 hours. He has an LDH level of 5040 at a CRP of 8.2. His inflammatory markers were obtained yesterday and they were quite elevated. He is still able to generate tidal volumes above 500 and his respiratory rate currently is in the 00s for now. Chest x-ray is consistent with diffuse bilateral pulmonary infiltrates. He has a PICC line in his left upper extremity and the patient is receiving TPN for nutritional support. As mentioned, he remains weak and lethargic. He is arousable and follows commands and answering questions. 09/13/2020, the patient got transferred to the intensive care unit where the patient got intubated and placed on a mechanical ventilator. Note that the patient was maintaining relatively fine on the BiPAP and ultimately desaturates., Became more short of breath and unresponsive in the blood. Showed significant hypoxemia and he had to come in to the ICU where he was intubated and placed on a mechanical ventilator. At this point and he is sedated with propofol running at 50 mcg/kg per minute and the patient is also paralyzed with Nimbex at 3 mcg/kg per minute. He is currently on assist control mode at the rate of 32 with a tidal volume of 400 and FiO2 of 1% with a PEEP of 15. The blood gases post intubation showed a pH of 7.22 and a pCO2 of 61 and pO2 of 89. His chest x-ray showing adequate positioning of ET tube. He has diffuse bilateral pulmonary infiltrates consistent with Covid 19 related p neumonia. Peak airway pressure 38. Static pressures 34. He is well rested and paralyzed for now. His BP currently is running at 156/59 and the patient was quite hypertensive prior to his intubation. His blood pressure came up to 182/110 and currently it's more stable. Labs are still pending for now. Meanwhile, the patient remains on Decadron 6 mg IV every 12 hours. Is also on Lovenox 40 mg subcu twice a day. He was receiving TPN for nutritional support as the patient was unable to take any form of oral intake as he was very much BiPAP dependent. TPN will be discontinued and the patient will be transitioned to enteral feeding note that he is currently intubated on a mechanical venti lator. A central line was also inserted. IV fluids are running at the rate of 20 mL an hour of normal saline. TPN Is currently running at 90 mL an hour. 09/14/2020, the patient is intubated on a mechanical ventilator in the intensive care unit. The patient currently is sedated and paralyzed. Propofol is running at 40 mcg/kg per minute and the Nimbex is running at 1.8 mcg/kg per minute. He is adequately sedated and paralyzed. He is still assist-control mode of mechanical ventilation at the rate of 32 with a tidal volume of 400 and FiO2 of 100% and a PEEP of 15. His blood gases from today showed a pH of 7.29 and pCO2 of 62 and pO2 of 86. We are allowing permissive hypercapnia. The peak and static pressures today are 14 and 34 respectively. His chest x-ray from today showing diffuse bilateral pulmonary infiltrates more so in the lower lobes and there is extensive consolidation of the lower lobes bilaterally. ET tube is at the level of the aortic knob. NG tube is in place. The patient remains on Decadron and currently is at a dose of 6 mg IV every 12 hours. In terms of his blood work, his inflammatory markers show a drop in the LDH level which is down to 294 and a CRP level is down to 5.2. D-dimer from a few days ago was 15.6 and the patient remains on Lovenox at a dose of 40 mg subcu every 12 hours. His TPN has been discontinued and the patient was switched enteral feeding and the patient is currently on vital high protein at the rate of 20 mL an hour which is at goal for now. IV fluids running at 20 mL an hour. He is hemodynamically stable. His overall fluid balance has been +1.6 L over the past 24 hours. Note that this patient was intubated yesterday after failing BiPAP for several days. He was intubated on 08/12/2020. Family is aware. Patient was reevaluated today on 09/15/2020, remains intubated and mechanically ventilated. Patient is presently on assist control rate of 52 tidal volume is 400 FiO2 at 90% PEEP is 15 ABG showed a pO2 of 77 pCO2 of 64 pH of 7.30. His peak airway pressure is 47 static pressure is 43. Attempted to adjust the PEEP higher, however he static pressure was getting much higher. Hence The PEEP at 15. And I adjusted the flow rate down to 60. He is on multiple drips including Nimbex at 1.5 mcg/kg/minute. he is on propofol at 40 mcg/kg per minute. Patient remains on permissive hypercapnia with a pCO2 of 64 pH of 7.30. Today considering the patient is on Nimbex I added fentanyl and 0.25 mcg/kg/h. And I switch his Decadron to Solu-Medrol at 60 mg IV push every 6 hours. Patient was intubated on 09/13 has been in the ICU since 09/13 he was actually admitted on 09/02 feeding gomez he is on HP20 mL per hour. Patient is sedated and paralyzed. Chest x-ray continues to show bilateral patchy infiltrates. Not much of a change noted. Patient was reevaluated today on 09/16/2020, remains in the ICU, intubated and mechanically ventilated. He is now on ventilator settings assist control rate of 3 to tell volume is 400 FiO2 80% and PEEP of 16. ABG showed a pO2 of 77 pCO2 of 68 pH of 7.28. Patient remains on propofol at 40, Nimbex at 1.2 fentanyl 0.5, IV fluid at KVO. FiO2 was decreased today from on the percent to 80%, and increase the flow rate to 65 L/m. Chest x-ray is showing no significant change. Patient remains fully sedated and paralyzed. He is on tube feeding using vital HP at 20 mL per hour. Electrolytes were reviewed potassium is 5.4. BUN is 55 creatinine 1.1, hence increase his IV fluid rate to 100 mL per hour. Bit of leukocytosis noted today, but improved compared to yesterday WBC count is 19.5 hemoglobin is 13.4. LDH continues on the rise to 081, and C-reactive protein is better at 1.5. Patient was reevaluated today on 09/17/2020, remains in the ICU, intubated mechanically ventilated, sedated, paralyzed, his ventilator settings are assist control rate of 32, tidal volume is 400 FiO2 65% and PEEP remains at 16. Peak airway pressure is 37, static pressures 27, chest x-ray continues to show by lateral patchy infiltrates consistent with COVID-19 pneumonia. ABG showed a pO2 of 64 pCO2 of 69 pH of 7.26. Hence his tidal volume was increased up to 420 7400. Patient will remain sedated. No plans to wean or extubated anytime soon. Patient remains on propofol at 40 Nimbex at 2 fentanyl 0.5 IV fluid at 100 mL per hour, he is on tube feeding 37/37 vital HP. Electrolytes are normal BUN is 58 creatinine is 1.08. Improving. LDH was 2080 yesterday. And C-reactive protein 1.5 Patient was reevaluated today on 09/18/2020, remains in the ICU intubated mechanically ventilated and sedated and paralyzed. Still requiring relatively high FiO2 of 65 and high PEEP of 16. ABG is marginal. He is on assist control rate of 34 tidal volume 420 FiO2 65% PEEP of 16. ABG showed a pO2 of 64 pCO2 of 61 pH of 7.32. Patient remains on propofol at 40 Nimbex at 0.2 and fentanyl at 0.5. Remains on tube feeding/vital HP at 37 mL per hour. Plan today to give the patient at least and Nimbex holiday if possible. Chest x-ray is basically unchanged. And his overall condition is about the same. WBC count is 14.9 hemoglobin is 12. Electrolytes showed elevated sodium of 146 hence the patient will be given free water and potassium of 5.6 we'll give a dose of Kayexalate. Renal profile showed a BUN of 54 creatinine 0.97, improving. Patient was reevaluated today on 09/19/2020, remains intubated and sedated, he is also paralyzed, remains on assist control rate of 32, tidal volume is 420 FiO2 65% and PEEP of 16. ABG showed a pO2 of 72 pCO2 of 63 pH of 7.32. His peak ai rway pressure is in the high 30s and plateau pressure is 31. Patient remains on IV fluid at 100 mL/h he is on Nimbex at 3, fentanyl at 1 on propofol at 40. He is on tube feeding using vital HP at goal. Today considering his sodium being elevated we have transitioned his IV fluids from 0.9 normal saline to D5W at 100 mL per hour and the patient will be receiving free water flushes via nasogastric tube. Chest x-ray is basically about the same, continues show by basilar patchy infiltrates, consistent with COVID-19 pneumonia, not much of a change is noted in the last couple of days. Hemodynamically gomez, the patient is stable, not requiring any pressors. Reevaluated today on 09/20/2020, patient remains intubated and sedated and mechanically ventilated and paralysis. On assist control rate of 32 tidal volume 420 FiO2 60% PEEP of 16. ABG showed a pO2 of 69 pCO2 of 62 pH of 7.32. Chest x-ray is basically about the same continues to by basilar patchy infiltrates. Remains on propofol at 20 Nimbex at 3 fentanyl at 1 D5W at 100 mL per hour. Remains on tube feeding. He is also receiving free water flushes. He is on enteral feeding using vital HP at 40 mL per hour. CBC is relatively normal hemoglobin is 10.7. Electrolytes sodium remains elevated at 145, however improving from 149 yesterday. BUN is 51 creatinine 1.03. Calcium is 7.9. No inflammatory markers were ordered today. Patient was reevaluated today on 09/21/2020, remains in the ICU, intubated and mechanically ventilated, sedated and paralyzed. Patient is on assist control rate of 32 tidal volume 420 FiO2 60% and PEEP of 16. ABG showed a pO2 of 65 pCO2 of 62 pH of 7.32. Remains on propofol at 25, Nimbex S3 fentanyl at 1 D5W at 100 mL per hour, and vital HP 40/40. Chest x-ray is showing slight improvement in his bilateral patchy infiltrates. Patient has not had a bowel movement in almost over a week, hence we'll start the patient on lactulose and Reglan. Today I have instructed the nurses to consider pronating the patient at least try presently position and hopefully address Nimbex holidays. However the patient is to be prone doubt other chemo on Nimbex. His IV fluid remains D5W and I cut it down to 50 mL per hour. After evaluating the patient, and patient was off Nimbex for a very short period of time developed atrial fibrillation with RVR, Lasix the patient on amiodarone as per protocol, bolused with amiodarone. And he had to go back on Nimbex. 2020, patient is being seen in follow-up in the intensive care units. Neurologically unchanged. Occasionally opens up his eyes and blinks. Does not follow any commands. Overall neurologic examination is the same as yesterday without any interval progression or worsening. Meanwhile, the patient is on a mechanical ventilator. As stated earlier, he is a tracheostomy tube. Current vent settings include an assist-control mode at the rate of 32 with a tidal volume of 420 and a PEEP is a 13 with an FiO2 of 60%. Chest x-ray showing diffuse breath and pulmonary infiltrates with areas of consolidation. Blood gases from today showed a pH of 7.24 with a pCO2 of 49 and pO2 of 129. Sputum was positive for MRSA and the patient is currently on Zyvox. The patient is afebrile. His white cell count is currently at 23.9. In terms of his COVID-19 related pneumonia, the patient is on steroids and the patient is receiving 40 mg by mouth daily. Antibiotic coverage is currently with a combination of Zyvox and cefepime. Another issue is the tracheostomy stoma where the patient has a large incision on his back and the stitches have already fallen apart and the patient has a dehisced wound. The stoma itself is intact. The skin around it is open and there is some liquidy material accumulating and pulling in that area. Appropriate dressing is applied to the general surgeon will be informed of this ongoing problem. Meanwhile, the patient is also developing progressive worsening renal function. Creatinine is up to 3.0. His overall urine output is no order of less than 10 mL an hour and her net fluid balance for yesterday has been +2.5 L. As such, the findings on the case and the plan is to proceed with hemodialysis with the next 24 hours especially of his lymphoma in his urine output and renal function. He is currently on Lasix and he is receiving Lasix 80 mg on a daily basis. No major electrode disturbance for now. He is receiving enteral feeding for nutritional support. Has a PEG tube in place. He has diffuse swelling all 4 extremities. As mentioned, he has a ongoing low- grade mucosal lesions/be bleed from his tongue and his lips. His hemoglobin is up to 6.6 and the patient is currently receiving a unit of packed RBC. No clear evidence of any GI bleed. He has a fecal management system in place. No diarrhea. Meanwhile, his cardiac rhythm and remained sinus. No episodes of A. fib/flutter since yesterday. He is currently on oral amiodarone. He is also on metoprolol and the dose has been reduced and infected was held as the patient is still requiring Santosh-Synephrine for hemodynamic support. His current Santosh- Synephrine dose is at 0.5 mg/kg/m and this could be weaned off. IV fluid maint enance is normal saline at the rate of 10 mL an hour. Patient was reevaluated today on 10/06/2020, patient remains in the ICU, intubated and mechanically ventilated, he has had a tracheostomy placed and he had a PEG tube placed. Patient has been off sedation for over a week, however his mental status does not seem to be improving much. Being followed by neurology. He is on assist control rate of 32, tidal volume is 420 FiO2 60% and rate of 13. FiO2 was decreased down to 55% after reviewing his ABG. ABG showed a pO2 of 82 pCO2 of 49 pH of 7.24 hence his FiO2 was decreased down to 55%. Chelsi r[place] is still being considered for hemodialysis. He is quite edematous, and he has very poor urine output. In spite of diuretics. Nephrology is addressing the issue of hemodialysis, and he is yet to be seen by vascular surgery for dialysis catheter placement. His IV fluid is at 10 mL/h. Patient has been in the hospital for 33 days, patient had a trach and PEG on 09/22 chest x-ray continues to show bilateral infiltrates. And again he is oliguric. Patient is growing MRSA around the site of the tracheostomy and around the PEG tube. He is on Zyvox. Patient is off Santosh-Synephrine. His enteral feeding has been on hold, however I see no reason to hold his enteral feeding, and we will restart his enteral feeding slowly. Via PEG tube. Continues to have some ongoing mucosal lesions or bleeding from the mouth and tongue as well as the lips., Hemoglobin today is 7.5. WBC count is 17.1. BUN is 149 creatinine is 3.84, liver enzymes are elevated with AST of 211 ALT of 266 and alkaline phosphatase of 128. Patient was reevaluated today on 10/07/2020, remains intubated and mechanically ventilated, however the patient has a tracheostomy in place, and a PEG tube in place. Remains off sedation, remains unresponsive to any stimuli. Patient had dialysis yesterday, and 1 L of fluid was removed. His ventilator settings are assist control rate of 3 2001 is 420 FiO2 50% and PEEP of 13. Peak airway pressure is 38 and plateau pressure is 32. Hence his rate was increased to 36. Based on the fact that his ABG continues to show some respiratory and metabolic acidosis his pO2 is 70 pCO2 is 53 pH of 7.22. IV fluid is at KVO. Patient again remains off sedation and he remains comatose. Tube feeding is at goal. Patient is still receiving free water flushes. Chest x-ray no major change is noted continues to show bilateral infiltrates. WBC count today is 15.5 hemoglobin is 8.2 ABG showed a pO2 of 70 pCO2 of 53 pH of 7.22 BUN today is down to 124 creatinine is down to 3.53, liver enzymes remain borderline elevated. We'll request an ammonia level since his liver enzymes remain elevated. Patient remains on Zyvox and cefepime, the secretions around the trach were methicillin-resistant staph aureus positive and the Gram stain as well as culture from the area around the PEG tube is also positive for MRSA. Hence we'll continue Zyvox. Patient was reevaluated today on 10/08/2020, patient is basically about the same, no major change in the last 24 hours. Remains intubated and mechanically ventilated, remains off sedation completely. His assist-control rate is 36 down volume is 420 FiO2 is 50% and PEEP remains at 13. ABG today showed a pO2 of 67 pCO2 of 46 pH of 7.27 remains on IV fluid at KVO, remains on hemodialysis almost on a daily basis, and discussed with nephrology to have the dialysis every other day and eventually hopefully arrange for the patient for placement. Yesterday patient had hemodialysis and 1 L was taken off. He is on enteral feeding using Nepro 33 mL per hour. Patient continues to have a hemodialysis catheter in the right groin. Remains unresponsive to any stimuli. Patient opens eyes, but does not respond to any stimuli. Again he is still off sedation completely. Chest x-ray basically showed no change,infiltrates noted throughout both lungs. Slight improvement of aeration in right lower lobe. CBC showed WBC of 8.9 hemoglobin is 7.6, electrolytes are normal bicarb is 20 BUN is 95 creatinine 2.65. Ammonia level which I ordered yesterday was 18. Patient was reevaluated today on 10/09/2020, remains in the ICU, intubated and mechanically ventilated. Patient is on the same ventilator settings with assist control rate of 36 tidal volume 450 FiO2 55% PEEP is 13. ABG showed a pO2 of 61 pCO2 of 49 pH of 7.17. Remains on norepinephrine at 0.1 mcg/kg/m. IV fluid at KVO. Still getting dialysis. However this morning the patient had hypotension and supraventricular tachycardia associated with the initiation of his dialysis, hence dialysis was discontinued. Obviously the patient is unable to tolerate dialysis today. His last hemodialysis was yesterday, and 2.5 L were taken off. Patient remains unresponsive to any stimuli. Has been off all narcotics and sedatives as well as paralytics for over a week. Chest x-ray continues to show significant inflammatory changes and post inflammatory changes and lungs bilaterally. Electrolytes today showed a bicarb of 16 BUN of 79 creatinine 2.26. WBC count is 13.7 hemoglobin is 7.5. Objective - Vital Signs Vital signs: Vital Signs Temp 99.0 F 10/09/20 10:22 Pulse 160 H 10/09/20 11:00 Resp 36 H 10/09/20 11:00 BP 106/71 10/09/20 11:00 Pulse Ox 92 L 10/09/20 11:00 Intake & Output 10/08/20 10/09/20 10/09/20 18:59 06:59 18:59 Intake Total 428.064 1419.630 516.087 Output Total 3010 0 500 Balance -2140.771 1100.630 16.087 Weight 109.9 kg Intake: IV 156 506 65 .9 120 120 50 Cefepime 1 gm In Sodium 50 Chloride 0.9% 50 ml @ 12. 5 mls/hr IVPB Q12HR [facility] Rx#:[id number] Linezolid 600 mg In 300 Dextrose/Water 1 300ml. bag @ 150 mls/hr IVPB Q12HR [facility] Rx#:[id number] Normal Saline Pressure 36 36 15 bag Intake, IV Titration 67.229 108.630 166.087 Amount Norepinephrine 8 mg In 66.786 108.630 166.087 Sodium Chloride 0.9% 250 ml @ 0.05 MCG/KG/MIN 10. 72 mls/hr IV .Q24H [facility] Rx #:[id number] Phenylephrine 40 mg In 0.443 Sodium Chloride 0.9% 250 ml @ 0.5 MCG/KG/MIN 17. 697 mls/hr IV .[id number] [facility] Rx#:[id number] Tube Feeding 396 396 165 Other 250 90 120 Output: Urine 10 0 0 Stool 500 Hemodialysis 2500 500 Other: Voiding Method Indwelling Catheter Indwelling Catheter Indwelling Catheter ABP, PAP, CO, CI - Last Documented Arterial Blood Pressure 105/42 - Exam GENERAL EXAM: Revealed 54-year-old male intubated and mechanically ventilated, via tracheostomy, patient is off sedation and remains unresponsive HEAD: Normocephalic. Atraumatic, tracheostomy is intact. EYES: PERRLA, EOMI, nonicteric.. THROAT: Multiple superficial erosions noted in the mucosa of the mouth NECK: No masses, no JVD. CHEST: No chest wall deformity. LUNGS: Symmetrical chest expansion rhonchi bilaterally. CVS: S1 and S2 normal with no audible murmur, regular rhythm Abdomen: Soft nontender no megaly. PEG tube is noted. Musculoskeletal: No deformities. SKIN: No rashes CENTRAL NERVOUS SYSTEM: Remains unresponsive to any stimuli. Not even opening eyes today. In spite of deep painful stimuli. EXTREMITIES: 2+ bipedal edema, bipedal edema is basically unchanged. no cyanosis. Good pulses bilaterally Psychiatric: Unable to assess. - Labs CBC & Chem 7: 10/09/20 05:00 10/09/20 05:00 Labs: Abnormal Lab Results - Last 24 Hours (Table) 10/08/20 10/08/20 10/08/20 Range/Units 12:21 17:41 23:33 WBC (3.8-10.6) k/uL RBC (4.30-5.90) m/uL Hgb (13.0-17.5) gm/dL Hct (39.0-53.0) % RDW (11.5-15.5) % Plt Count (150-450) k/uL ABG pH (7.35-7.45) ABG pCO2 (35-45) mmHg ABG pO2 (83-108) mmHg ABG HCO3 (21-25) mmol/L ABG O2 Saturation (94-97) % Chloride (98-107) mmol/L Carbon Dioxide (22-30) mmol/L BUN (9-20) mg/dL Creatinine (0.66-1.25) mg/dL Glucose (74-99) mg/dL POC Glucose (mg/dL) 134 H 114 H 145 H (75-99) mg/dL Calcium (8.4-10.2) mg/dL Phosphorus (2.5-4.5) mg/dL 10/09/20 10/09/20 10/09/20 Range/Units 04:32 05:00 05:00 WBC 13.7 H (3.8-10.6) k/uL RBC 2.37 L (4.30-5.90) m/uL Hgb 7.5 L (13.0-17.5) gm/dL Hct 23.3 L (39.0-53.0) % RDW 18.8 H (11.5-15.5) % Plt Count 116 L (150-450) k/uL ABG pH 7.17 L* (7.35-7.45) ABG pCO2 49 H (35-45) mmHg ABG pO2 61 L (83-108) mmHg ABG HCO3 18 L (21-25) mmol/L ABG O2 Saturation 88.0 L (94-97) % Chloride 110 H (98-107) mmol/L Carbon Dioxide 16 L (22-30) mmol/L BUN 79 H (9-20) mg/dL Creatinine 2.26 H (0.66-1.25) mg/dL Glucose 124 H (74-99) mg/dL POC Glucose (mg/dL) (75-99) mg/dL Calcium 8.3 L (8.4-10.2) mg/dL Phosphorus (2.5-4.5) mg/dL 10/09/20 10/09/20 10/09/20 Range/Units 05:00 05:09 11:39 WBC (3.8-10.6) k/uL RBC (4.30-5.90) m/uL Hgb (13.0-17.5) gm/dL Hct (39.0-53.0) % RDW (11.5-15.5) % Plt Count (150-450) k/uL ABG pH (7.35-7.45) ABG pCO2 (35-45) mmHg ABG pO2 (83-108) mmHg ABG HCO3 (21-25) mmol/L ABG O2 Saturation (94-97) % Chloride (98-107) mmol/L Carbon Dioxide (22-30) mmol/L BUN (9-20) mg/dL Creatinine (0.66-1.25) mg/dL Glucose (74-99) mg/dL POC Glucose (mg/dL) 130 H 168 H (75-99) mg/dL Calcium (8.4-10.2) mg/dL Phosphorus 5.5 H (2.5-4.5) mg/dL Microbiology - Last 24 Hours (Table) 10/02/20 12:20 Blood Culture - Final Blood No Growth after 144 hours Assessment and Plan Assessment: Impression: Acute hypoxic respiratory failure secondary to acute COVID-19 pneumonia with ARDS. Patient received toci, and convalescent plasma, patient had a prolonged ICU course, requiring prolonged mechanical ventilation, and eventually tracheostomy as noted below. Failure to wean, required tracheostomy and PEG tube placement on 09/22. MRSA pneumonia is suspected. Patient is presently on Zyvox. Secretions around the tracheostomy and PEG tube were positive for MRSA. Unresponsive, comatose, EEG consistent with acute toxic metabolic encephalopathy without any seizure activity. Non-ST elevation myocardial infarction Acute kidney injury with worsening renal failure, presently on hemodialysis since yesterday. Started hemodialysis on 10/06/2020. Electrolytes imbalance, improving. Being addressed accordingly. Acute on chronic anemia, possible GI blood losses, as well as ongoing phlebotomy with blood loss. Elevated inflammatory markers secondary to above Benign essential hypertension Former smoker. Paroxysmal atrial fibrillation with RVR. Recommendation: Updated his son today on his condition, and made it clear that the clinical pict ure does not look promising, and the prognosis is very poor. Discussed with the son the option of comfort care measures, and he would like to discuss this with his other family members have also discussed his condition with the neurologist on the case and he will also discuss the neurological status with the family again. Continue present supportive care measures Hold dialysis for now. Continue aranesp Continue ventilatory support, and tracheostomy care. No changes made in the vent settings today. Continue albuterol. Continue amiodarone. Continue GI prophylaxis. Resume enteral feeding slowly. Via PEG tube Continue steroids. Prednisone 30 mg daily. Lovenox 30 mg subcu daily Patient received convalescent plasma and toci Continue to monitor electrolytes. Continue Zyvox. Continue cefepime. Continue to daily assessment of neurologic status. Continue GI and DVT prophylaxis Again family has been updated on his poor condition, and we'll discuss among themselves the issue of comfort care measures, and they will get back to me regarding final decision in the meantime the patient will have a change in CODE STATUS to DO NOT RESUSCITATE. This is clearly a medical futility situation bas ed on all the findings. The neurologist will discuss the neurological status again with the family radha garnica. Critical care time is over 30 minutes Time with Patient: Greater than 30
--- NOTE | 2020-10-09 13:08 | P.PN ---
Subjective Progress Note Date: 10/09/20 Per the patient nurse the patient condition shows no improvement. He continues to be off sedation. Overnight patient's blood pressure was 69/63 arterial and currently patient is on norepinephrine. I was notified by the patient nurse that the patient's son wanted to speak to me. Upon speaking with the patient's son he states that he understands the patient's condition seems poor but his sister once to know whether we should get further workup such as a CT and EEG to make further decision. Objective - Vital Signs Vital signs: Vital Signs Temp 99.0 F 10/09/20 10:22 Pulse 160 H 10/09/20 11:00 Resp 36 H 10/09/20 11:00 BP 106/71 10/09/20 11:00 Pulse Ox 92 L 10/09/20 11:00 Intake & Output 10/08/20 10/09/20 10/09/20 18:59 06:59 18:59 Intake Total 182.127 1144.630 592.199 Output Total 3010 0 500 Balance -2140.771 1100.630 92.199 Weight 109.9 kg Intake: IV 156 506 65 .9 120 120 50 Cefepime 1 gm In Sodium 50 Chloride 0.9% 50 ml @ 12. 5 mls/hr IVPB Q12HR [facility] Rx#:[id number] Linezolid 600 mg In 300 Dextrose/Water 1 300ml. bag @ 150 mls/hr IVPB Q12HR [facility] Rx#:[id number] Normal Saline Pressure 36 36 15 bag Intake, IV Titration 67.229 108.630 242.199 Amount Norepinephrine 8 mg In 66.786 108.630 242.199 Sodium Chloride 0.9% 250 ml @ 0.05 MCG/KG/MIN 10. 72 mls/hr IV .Q24H [facility] Rx #:[id number] Phenylephrine 40 mg In 0.443 Sodium Chloride 0.9% 250 ml @ 0.5 MCG/KG/MIN 17. 697 mls/hr IV .[id number] [facility] Rx#:[id number] Tube Feeding 396 396 165 Other 250 90 120 Output: Urine 10 0 0 Stool 500 Hemodialysis 2500 500 Other: Voiding Method Indwelling Catheter Indwelling Catheter Indwelling Catheter ABP, PAP, CO, CI - Last Documented Arterial Blood Pressure 105/42 - Exam GENERAL: The patient is lying in bed and is not in acute distress. HENT: Has old blood product around the mouth region (per nurse that is old since patient in the patient was on heparin drip for atrial fib/flutter). Mucosa is dry. LUNG: Trach on ventilator. ABDOMEN/GI: +PEG tube. NEUROLOGICAL: Limited because of his condition. Not on sedation. Higher mental function: The patient is comatose. GCS4 (E1, VT1, M1). Does not following commands or attempts to verbalized. Cranial nerves: I had to manually open the eyes. Primary gaze are midline. The pupils are round, right pupils are 4mm bilaterally and reactive to light. +ve corneal reflex. Negative oculocephalic reflex. No facial weakness. Has his mouth wide open. Not breathing over the vent (but AC set at 36 and he is breathing at 36). +positive weak gag reflex. Otherwise could not assess rest of cranial nerves because of his condition. Motor: The strength is 0/5 even with painful stimuli no withdrawl of any extremities Cerebellum: Could not assess. Sensation: Could not assess light touch but to painful stimuli not withdrawing. Reflexes (right/left): 1+ throughout. - Labs CBC & Chem 7: 10/09/20 05:00 10/09/20 05:00 Labs: Abnormal Lab Results - Last 24 Hours (Table) 10/08/20 10/08/20 10/09/20 Range/Units 17:41 23:33 04:32 WBC (3.8-10.6) k/uL RBC (4.30-5.90) m/uL Hgb (13.0-17.5) gm/dL Hct (39.0-53.0) % RDW (11.5-15.5) % Plt Count (150-450) k/uL ABG pH 7.17 L* (7.35-7.45) ABG pCO2 49 H (35-45) mmHg ABG pO2 61 L (83-108) mmHg ABG HCO3 18 L (21-25) mmol/L ABG O2 Saturation 88.0 L (94-97) % Chloride (98-107) mmol/L Carbon Dioxide (22-30) mmol/L BUN (9-20) mg/dL Creatinine (0.66-1.25) mg/dL Glucose (74-99) mg/dL POC Glucose (mg/dL) 114 H 145 H (75-99) mg/dL Calcium (8.4-10.2) mg/dL Phosphorus (2.5-4.5) mg/dL 10/09/20 10/09/20 10/09/20 Range/Units 05:00 05:00 05:00 WBC 13.7 H (3.8-10.6) k/uL RBC 2.37 L (4.30-5.90) m/uL Hgb 7.5 L (13.0-17.5) gm/dL Hct 23.3 L (39.0-53.0) % RDW 18.8 H (11.5-15.5) % Plt Count 116 L (150-450) k/uL ABG pH (7.35-7.45) ABG pCO2 (35-45) mmHg ABG pO2 (83-108) mmHg ABG HCO3 (21-25) mmol/L ABG O2 Saturation (94-97) % Chloride 110 H (98-107) mmol/L Carbon Dioxide 16 L (22-30) mmol/L BUN 79 H (9-20) mg/dL Creatinine 2.26 H (0.66-1.25) mg/dL Glucose 124 H (74-99) mg/dL POC Glucose (mg/dL) (75-99) mg/dL Calcium 8.3 L (8.4-10.2) mg/dL Phosphorus 5.5 H (2.5-4.5) mg/dL 10/09/20 10/09/20 Range/Units 05:09 11:39 WBC (3.8-10.6) k/uL RBC (4.30-5.90) m/uL Hgb (13.0-17.5) gm/dL Hct (39.0-53.0) % RDW (11.5-15.5) % Plt Count (150-450) k/uL ABG pH (7.35-7.45) ABG pCO2 (35-45) mmHg ABG pO2 (83-108) mmHg ABG HCO3 (21-25) mmol/L ABG O2 Saturation (94-97) % Chloride (98-107) mmol/L Carbon Dioxide (22-30) mmol/L BUN (9-20) mg/dL Creatinine (0.66-1.25) mg/dL Glucose (74-99) mg/dL POC Glucose (mg/dL) 130 H 168 H (75-99) mg/dL Calcium (8.4-10.2) mg/dL Phosphorus (2.5-4.5) mg/dL Microbiology - Last 24 Hours (Table) 10/02/20 12:20 Blood Culture - Final Blood No Growth after 144 hours Assessment and Plan Assessment: * Altered mental status with comatose state due to severe toxic metabolic encephalopathy. Reasons multifactorial as below. * Abnormal CT head, showing evidence of subcortical white matter hypodensity, asymmetric to the left posterior parietal region. No definitive acute stroke. * Acute hypoxic respiratory failure secondary due to acute COVID-19 pneumonia with ARDS s/p Trach * MRSA pneumonia * Acute renal insufficiency, getting worse---received dialysis. kidney function is improving in the last couple days. * Elevated LFTs * Electrolyte imbalance: hyperphosphatemia, mild hyponatremia, hypocalcemia * Non-STEMI * atrial flutter/fibrillation * Acute on chronic anemia, with possible GI losses, ongoing phlebotomy with blood loss * Status post tracheostomy and PEG placement Plan: * computed tomography scan of the head revealed evidence of subcortical white matter hypodensity, asymmetric to the left, consistent with small vessel disease. No acute or evolving stroke. * EEG revealed background slowing of at least moderate degree, suggestive of toxic metabolic encephalopathy or from diffuse structural brain abnormality. No epileptiform activity was seen. * Patient has been off sedation 09/29/2020, with no significant clinical improvement. * Carotid Doppler revealed suboptimal study without significant plaque or stenosis in the carotid bulb level bilaterally. Vertebral arteries could not be assessed because of the trachea equipment. * Hemoglobin A1c 6.6. * 2-D echo from 09/03/2020 shows moderate concentric LVH, EF is 55-60%. Trace MR. * Patient on aspirin 81 mg, Lipitor 80 mg. * Will defer electrolyte imbalance correction to nephrology. Patient is getting dialysis. * We'll defer the rest of medical management to the primary team in the ICU team. Prognosis appears poor based upon neurological and other comorbid conditions. He only has brain stem reflexes. His quality of life seems poor. I spoke with the patient son (Keo) via phone and he stated that the his sister wanted a repeat CT of the head and EEG to make sure she is making the right decision moving forward. I initially ordered a CT of the head but the patient is on vasopressor, heart rate in 150-160's upon seeing him and unstable for a CAT scan of the head therefore the CT of the head and the EEG will not provide any additional information. Patient condition shows no improvement. The plan is discussed with the ICU team and patient's nurse. Will follow-up sporadically. Piotr Brown MD Neuro-Hospitalist Time with Patient: Greater than 30
--- NOTE | 2020-10-09 13:16 | P.PN ---
Subjective Progress Note Date: 10/09/20 CHIEF COMPLAINT: COVID-19 pneumonia HISTORY OF PRESENT ILLNESS: Patient is in the ICU and is intubated. He is status post tracheostomy and PEG tube placement. Patient is tolerating tube feedings. Nepro tube feedings are currently at goal at 33 mL per hour. No residual reported. Patient had elevated heart rate during hemodialysis. Hemodialysis was discontinued. Patient does have some bleeding around his tracheostomy site and still having some drainage from the PEG tube site. Afebrile. WBC 13.7 PHYSICAL EXAM: VITAL SIGNS: Reviewed. GENERAL: Well-developed in no acute distress. HEENT: Moist buccal mucosa. Head is atraumatic, normocephalic. Tracheostomy site with skin breakdown ABDOMEN: Soft. Nondistended. Nontender. PEG tube site clean dry and intact NEUROLOGIC: Intubated ASSESSMENT: 1. Acute hypoxic respiratory failure due to COVID-19 pneumonia with prolonged mechanical ventilation status post tracheostomy placement 2. Moderate protein calorie malnutrition status post PEG tube placement PLAN: -Continue tube feedings -Continue local wound care to tracheostomy site with Aquacel Silver -Continue supportive care -Continue ICU management Physician Tool And Gauge Inspector note has been reviewed by physician. Signing provider agrees with the documented findings, assessment, and plan of care. Objective - Vital Signs Vital signs: Vital Signs Temp 99.0 F 10/09/20 10:22 Pulse 160 H 10/09/20 11:00 Resp 36 H 10/09/20 11:00 BP 106/71 10/09/20 11:00 Pulse Ox 92 L 10/09/20 11:00 Intake & Output 10/08/20 10/09/20 10/09/20 18:59 06:59 18:59 Intake Total 211.612 4128.630 592.199 Output Total 3010 0 500 Balance -2140.771 1100.630 92.199 Weight 109.9 kg Intake: IV 156 506 65 .9 120 120 50 Cefepime 1 gm In Sodium 50 Chloride 0.9% 50 ml @ 12. 5 mls/hr IVPB Q12HR [facility] Rx#:[id number] Linezolid 600 mg In 300 Dextrose/Water 1 300ml. bag @ 150 mls/hr IVPB Q12HR [facility] Rx#:[id number] Normal Saline Pressure 36 36 15 bag Intake, IV Titration 67.229 108.630 242.199 Amount Norepinephrine 8 mg In 66.786 108.630 242.199 Sodium Chloride 0.9% 250 ml @ 0.05 MCG/KG/MIN 10. 72 mls/hr IV .Q24H [facility] Rx #:[id number] Phenylephrine 40 mg In 0.443 Sodium Chloride 0.9% 250 ml @ 0.5 MCG/KG/MIN 17. 697 mls/hr IV .[id number] [facility] Rx#:[id number] Tube Feeding 396 396 165 Other 250 90 120 Output: Urine 10 0 0 Stool 500 Hemodialysis 2500 500 Other: Voiding Method Indwelling Catheter Indwelling Catheter Indwelling Catheter ABP, PAP, CO, CI - Last Documented Arterial Blood Pressure 105/42 - Labs CBC & Chem 7: 10/09/20 05:00 10/09/20 05:00 Labs: Abnormal Lab Results - Last 24 Hours (Table) 10/08/20 10/08/20 10/09/20 Range/Units 17:41 23:33 04:32 WBC (3.8-10.6) k/uL RBC (4.30-5.90) m/uL Hgb (13.0-17.5) gm/dL Hct (39.0-53.0) % RDW (11.5-15.5) % Plt Count (150-450) k/uL ABG pH 7.17 L* (7.35-7.45) ABG pCO2 49 H (35-45) mmHg ABG pO2 61 L (83-108) mmHg ABG HCO3 18 L (21-25) mmol/L ABG O2 Saturation 88.0 L (94-97) % Chloride (98-107) mmol/L Carbon Dioxide (22-30) mmol/L BUN (9-20) mg/dL Creatinine (0.66-1.25) mg/dL Glucose (74-99) mg/dL POC Glucose (mg/dL) 114 H 145 H (75-99) mg/dL Calcium (8.4-10.2) mg/dL Phosphorus (2.5-4.5) mg/dL 10/09/20 10/09/20 10/09/20 Range/Units 05:00 05:00 05:00 WBC 13.7 H (3.8-10.6) k/uL RBC 2.37 L (4.30-5.90) m/uL Hgb 7.5 L (13.0-17.5) gm/dL Hct 23.3 L (39.0-53.0) % RDW 18.8 H (11.5-15.5) % Plt Count 116 L (150-450) k/uL ABG pH (7.35-7.45) ABG pCO2 (35-45) mmHg ABG pO2 (83-108) mmHg ABG HCO3 (21-25) mmol/L ABG O2 Saturation (94-97) % Chloride 110 H (98-107) mmol/L Carbon Dioxide 16 L (22-30) mmol/L BUN 79 H (9-20) mg/dL Creatinine 2.26 H (0.66-1.25) mg/dL Glucose 124 H (74-99) mg/dL POC Glucose (mg/dL) (75-99) mg/dL Calcium 8.3 L (8.4-10.2) mg/dL Phosphorus 5.5 H (2.5-4.5) mg/dL 10/09/20 10/09/20 Range/Units 05:09 11:39 WBC (3.8-10.6) k/uL RBC (4.30-5.90) m/uL Hgb (13.0-17.5) gm/dL Hct (39.0-53.0) % RDW (11.5-15.5) % Plt Count (150-450) k/uL ABG pH (7.35-7.45) ABG pCO2 (35-45) mmHg ABG pO2 (83-108) mmHg ABG HCO3 (21-25) mmol/L ABG O2 Saturation (94-97) % Chloride (98-107) mmol/L Carbon Dioxide (22-30) mmol/L BUN (9-20) mg/dL Creatinine (0.66-1.25) mg/dL Glucose (74-99) mg/dL POC Glucose (mg/dL) 130 H 168 H (75-99) mg/dL Calcium (8.4-10.2) mg/dL Phosphorus (2.5-4.5) mg/dL Microbiology - Last 24 Hours (Table) 10/02/20 12:20 Blood Culture - Final Blood No Growth after 144 hours
[2020-10-09] MEDS ORDERED: AMIODARONE 360 MG in DEXTROSE 5% IN WATER 200 ML IV ONE ×2 (14:30)
[2020-10-09] MEDS ORDERED: DEXTROSE 5% IN WATER 100 ML with AMIODARONE 150 MG IV ONE (14:30)
--- NOTE | 2020-10-09 15:13 | P.PN ---
Subjective Progress Note Date: 10/09/20 This is a 54-year-old male who was recently admitted with acute hypoxic respiratory failure secondary to COVID-19 pneumonia and is being closely monitored. Continues to remain on mechanical ventilation currently sedated. Patient has had prolonged hospitalization with unsuccessful attempts at weaning and surgery has been consulted for tracheostomy along with PEG tube placement. Patient was on D5 water for hypernatremia and will be discontinued. Tube feedings on hold for surgery today and will resume once PEG tube is okay for use. Per nursing staff patient has also been in the prone position since yesterday evening into this morning and tolerated. Amiodarone has also been discontinued as patient is currently bradycardic. Pulmonary pattern changer following closely. Patient is maintained on sliding scale and will monitor closely once tube feedings have resumed. 09/23/2020 Patient is seen in follow-up continues to be closely monitored in the ICU maintained on mechanical vent via tracheostomy as he underwent trach and PEG tube placement yesterday with surgery. Tube feedings to resume via PEG tube this afternoon after clearance from surgery. Chest x-ray today shows bilateral multifocal and confluent opacities left greater than right consistent with COVID-19 again redemonstrated with no significant change from yesterday. Pulmonary also following. White blood count at 20.9, hemoglobin is 11.3, current sodium is 138 with a potassium of 5.2, and creatinine is 0.83. 09/24/2020 Patient continues to be intubated and sedated in the ICU status post tracheostomy and PEG tube placement. Tube feedings have been resumed and patient is tolerating. Chest x-ray today shows continued patchy airspace infiltrates although there is interval improvement noted. Pulmonary following closely. White blood count slightly elevated at 23.2 patient is maintained on IV Solu-Medrol every 6 hours. Sodium 143 with a potassium of 5.0 and current creatinine is 0.84. 09/25/2020 Patient continues to be in the ICU on mechanical ventilation intubated via tracheostomy and continued on sedation and is being closely monitored. PEEP being titrated down slowly and patient continues on Nimbex along with propofol and fentanyl. White blood count on a downward trend 17.2 with hemoglobin of 9.7, sodium is 144 with a potassium of 4.9 and current creatinine is 0.95. FiO2 remains at 50 and maintaining 87 and 90% oxygen saturation. Social work also following and discussion with family about possible LTAC placement. 09/26/2020 Patient is seen in follow-up continues to be closely monitored in the ICU. Patient is off of Nimbex since yesterday and tolerating. Patient continues to be sedated and pulmonary pattern changer following closely and working on weaning FiO2 as tolerated. FiO2 has been decreased to 50 and PEEP continues at 17. Patient's calcium was low on this morning's labs at 4.9 and was given a dose of calcium gluconate. Patient labs this morning show sodium of 143 with a potassium of 3.5 and creatinine is 0.57, LDH is 1027, CRP is 8.7 and magnesium is 1.9. Continue with electrolyte replacement per protocol. His repeat potassium this afternoon as showing 6.0 may potentially be a hemolyzed sample and will redraw and monitor closely. Patient did receive that Braden supplementation from this morning's labs as it was 3.5. 09/27/2020 The patient remains on the mechanical ventilator. His vent settings include assist control mode, rate 32, tidal volume 420, FiO2 50%, and PEEP of 17. Arterial blood gases show pO2 61, pCO2 56, pH 7.38. The patient's currently on propofol at 35 mcg/kg/m, and fentanyl 1.5 mcg/kg per hour. The patient's getting saline at KVO, and tube feedings with Nepro at 25 mL an hour which is goal. Chest x-ray is stable. Shows bilateral diffuse infiltrates. White count 18.1, he will 9.7, hematocrit 30.2, platelet count 175,000. D-dimer is 1.27. Sodium 144, potassium 4.1, chlorides 118, CO2 27, BUN 42, creatinine 0.78. LDH is 1528, and C-reactive protein is 13.5. 09/28/2020 patient is seen in follow-up in the intensive care unit. HRemains intubated and on mechanical ventilator. He had undergone tracheostomy tube and PEG tube placements on 09/22/2020. He is sedated on propofol at 40 mcg/kg/m. Fentanyl at 1.5 mcg/mg per hour. 0.9 normal saline at KVO. He is being nourished with Nepro at 25 ML's per hour which is goal. Free water flushes at 30 MLS every 4 hours. He's had daily interruption of sedation. Once off sedation his blood pressure goes up to 200 systolic range. Today's chest x-ray reveals stable bilateral diffuse interstitial infiltrates. He has received 1 unit of convalescent plasma. Blood cultures reveal no growth. White count 15.5. Hemoglobin 8.8. Platelets 160. Sodium 142. Potassium 4.9. Creatinine 0.86. He has continued on Solu-Medrol, Lovenox, vitamin supplements. Prognosis remains guarded. 09/29/2020 Patient is seen in follow-up continues to be in the ICU intubated and sedated. Patient is off Nimbex with attempts at sedation holiday and having rebound blood pressure issues and placed on labetalol. Continues on IV Solu-Medrol along with vitamin and zinc supplements and Lovenox and will continue. FiO2 down to 50 and PEEP of 13. Pulmonary following closely. Patient continues with intermittent low-grade temps and elevated white count. D-dimer today is 1.57, sodium is 145, potassium is 4.6, current creatinine is 0.86. Inflammatory markers are elevated along with CRP and probe calcitonin. 09/30/2020 Patient is seen in follow-up currently remains in the ICU intubated and off sedation but no activity noted. Patient is not responding to commands and CT of the brain is ordered showing age-related atrophic and chronic small vessel ischemic change without any acute intracranial process along with the neck and chest CT continues to show groundglass opacities. Patient is off of labetalol and continues on that now. Propofol has been discontinued. Steroids transition to oral and given via PEG tube and continues on tube feedings which he is tolera ting. White blood count continues to be elevated at 21.7 and hemoglobin is 10.3, sodium is 147 and will increase free water flushes with tube feedings and monitor sodium closely. Potassium is 4.5. 10/01/2020 Patient continues to be closely monitored in the ICU and maintained off of sedation and remains unresponsive with very minimal brainstem reflexes otherwise not responding to painful stimulation or voice. Continue with free water flushes and monitor hypernatremia closely as sodium was elevated at 148 today. Continue with half normal saline at 75 ML per hour. D-dimer elevated at 3.48 today. White blood count also 22.7, hemoglobin is 9.6, creatinine elevated at 1.31, and sodium is 4.7. LDH slightly trending down at 2244 also CRP is up at 20.5. Chest x-ray today shows patchy. Hilar and basilar infiltrates persist without significant change. Will have neurology reevaluate the patient as he continues to be unresponsive and off sedation for 48 hours now. 10/02/2020 Patient is seen in follow-up continues to be closely monitored in the ICU and also continues off sedation and continues to be unresponsive. EEG was done which was abnormal showing no epileptiform activity and some background slowing of at least moderate degree suggestive of generalized cerebral dysfunction as can be seen in toxic metabolic encephalopathy or due to diffuse structural brain abnormalities. Patient's sodium is 144 today with a potassium of 4.6 and creatinine worsening at 2.08 and continues on half normal saline. White blood count elevated at 25.4 and continues with low-grade intermittent temps and showing MRSA in the sputum and was started on Zyvox. Patient also having some possible SVT and was given adenosine although appears to be atrial flutter and Cardizem was initiated although having low blood pressures which was discontinued. Patient is now on amiodarone drip along with heparin drip and cardiology following. 10/03/2020 Patient is seen this morning with pattern changer also at the bedside and continues to be closely monitored in the ICU. Continues off of all sedatives and continues to be unresponsive with no activity noted. Multiple medical consultations following including neurology, cardiology, pulmonary, and nephrology now consulted as patient has worsening creatinine and is currently 2.39 with a BUN of 105. Sodium improved at 138 and potassium is 4.5. Liver f unctions also worsening. Patient remains on a heparin drip and amiodarone has been transitioned oral amiodarone. Continues on oral prednisone and vitamin and zinc supplements and will continue. Patient's IV fluids are 0.45 at 75 ML per hour. Will await neuro consult. Patient has generalized edema bilateral upper and lower extremities and being started on IV Lasix Need to discuss with family about CODE STATUS as prognosis remains extremely guarded. 10/04/2020 Patient has a extensive prolonged hospitalization for more than 30 days patient presently has tracheostomy and PEG tube in place patient has secondary bacterial pneumonia with the staph aureus and patient is on linezolid did patient has very minimal or no urine output continues to have renal dysfunction and worsening creatinine nephrology is following the patient and patient was started on Lasix. She and is presently on ventilatory support assist-control ventilation set up respiratory 22 titer volume 420 people 13 FiO2 of 70% patient has been off sedation in spite of which patient is unresponsive and comatose brainstem re flexes are present no particle function EEG showed diffuse encephalopathy. Computed tomography scan that was done yesterday showed chronic microvascular ischemic changes neurology is following the patient as well. Patient chest x- ray still showing pulmonary infiltrates. he is on amiodarone for atrial flutter/fibrillation. Patient was on IV heparin which was now discontinued 10/05/2020 Patient's overall clinical condition is much worse today patient doesn't have any new significant neurological improvement. Patient's hemoglobin did drop receiving 11 unit of PRBC transfusion presently around the 6.5 there is no acute GI bleed or any other source of acute bleed. The patient remains on no steroids. Patient tracheostomy site appears to be dye history because of which the surgery evaluated the patient back as Selsun Blue is being applied. Patient has MRSA in the sputum patient is presently on Zyvox as well as cefepime. Chest x-ray showing worsening infiltrates. Creatinine did go up to 3 with highly elevated BNP patient remains on Lasix at this time patient will undergo dialysis catheter placement tomorrow, patient does have a fecal management system receiving tube feeding through peg tube white blood cell count continued to be high but improved to 23,000. Patient is presently sinus rhythm remains on amiodarone patient is on vasopressin at 0.5 mg/kg/m which is being weaned off patient remains on ventilator support with tidal volume of 420 peep of 13 FiO2 60%. Laundry Technician had an extensive discussion with the family family wanted to continue care. 10/06/2020 Patient is seen and evaluated continues to be closely monitored in the ICU currently receiving catheter placement for hemodialysis as kidney functions continue to worsen and nephrology following. Multiple consultations following. Sodium today is 133 with a potassium of 5.2 BUN is 149 with the current cr eatinine of 3.84. Liver functions continue to be elevated although slightly trending down. Urine output very minimal and continues to be edematous and on IV Lasix. Patient remains on Zyvox and cefepime as there is MRSA in the sputum. Hemoglobin is 7.5. Neurologically only occasionally opening eyes and does not follow commands. Prognosis remains extremely guarded 10/07/2020 Patient is seen in follow-up being closely monitored in the ICU with multiple medical consultations following closely. Patient received hemodialysis yesterday with 1 L removed and will continue with possible daily treatments of hemodialysis and nephrology following closely. IV Lasix has been discontinued. Patient continues on IV Zyvox along with cefepime as his cultures have been positive for MRSA. Hemoglobin 8.2 today and white blood count 15.5, sodium is 131 with a potassium of 5.0, BUN is 124 with the creatinine being 3.53. Patient is afebrile. Patient continues to be tachypneic. Patient remains unresponsive and continues to be off sedation. Neurology is following. 10/08/2020 Patient is seen and evaluated this morning continues to be closely monitored in the ICU. Patient is receiving dialysis currently and nephrology following closely. Hemoglobin is 7.6, white blood count is 8.9, sodium is 135 with a potassium of 4.4, and creatinine trending down at 2.65. Pulmonary following closely as well and patient continues on IV antibiotics for MRSA in the sputum in the form of Zyvox and cefepime. Patient is on norepinephrine drip for low blood pressures and continues to be closely monitored. Patient's prognosis is extremely guarded and family continues to wish for full CODE STATUS. Chest x- ray today shows continued airspace infiltrates throughout both lung bobo with improved aeration in the right lower lobe. Patient continues to be off sedation and remains unresponsive and not following any commands. 10/09/2020 Patient is seen and evaluated and follow-up continues to be in the ICU being closely monitored by multiple medical consultations. Patient continues with hemodialysis although became hypotensive and elevated heart rate and had to abort dialysis and nephrology is following closely. Patient was receiving daily dialysis with approximately 2-1/2 L of removal yesterday. Patient continues on norepinephrine and was restarted on amiodarone drip with cardiology following closely as well. Patient continues on IV antibiotics and will continue. Neurology also following and had a discussion with the family and family was requesting repeat CT and EEG although patient is unable to transfer as he is unstable at this time. Family having discussions among themselves about possible comfort care measures. Patient continues to be off paralytics and sedatives with no response. White blood count elevated today at 13.7 hemoglobin is 7.5, sodium is 140 with a potassium of 4.5 and creatinine is 2.26 with a BUN of 79. Prognosis remains extremely poor and guarded at this time. Family has opted for changing CODE STATUS to no code Review of systems: Unable to obtain as patient continues to be intubated and sedated Active Medications Generic Name Dose Route Start Last Admin Trade Name Freq PRN Reason Stop Dose Admin Acetaminophen 650 mg 09/07/20 06:23 09/16/20 11:48 Acetaminophen Tab 325 Mg Tab PO 650 mg Q6HR PRN Administration Fever and/ or Pain Albuterol Sulfate 2 puff 09/12/20 08:00 10/09/20 11:28 Albuterol Hfa Inhaler INHALATION 2 puff RT-QID SPENSER Administration Amiodarone HCl 100 mg 10/05/20 09:00 10/09/20 08:31 Amiodarone 100 Mg Tab PO 100 mg BID SPENSER Administration Artificial Tears 2 drops 09/23/20 22:00 10/09/20 13:04 Artificial Tears-Hypromellose Drops 15 Ml Btl BOTH EYES 2 drops QID SPENSER Administration Ascorbic Acid 500 mg 09/03/20 09:00 10/09/20 08:34 Ascorbic Acid 500 Mg Tab PO 500 mg BID SPENSER Administration Aspirin 81 mg 09/04/20 09:00 10/09/20 08:32 Aspirin 81 Mg PO 81 mg DAILY SPENSER Administration Atorvastatin Calcium 80 mg 09/03/20 14:00 10/09/20 08:32 Atorvastatin 80 Mg Tab PO 80 mg DAILY SPENSER Administration Calcium Acetate 667 mg 10/05/20 12:30 10/09/20 13:04 Calcium Acetate 667 Mg Tab PO 667 mg TID-W/MEALS SPENSER Administration Chlorhexidine Gluconate 15 ml 09/13/20 09:00 10/09/20 08:31 Chlorhexidine Gluconate 15 Ml Cup MUCOUS MEM 15 ml BID SPENSER Administration Cholecalciferol 125 mcg 09/03/20 09:00 10/09/20 08:31 Cholecalciferol 25 Mcg (1000 Iu) Tablet PO 125 mcg DAILY SPENSER Administration Darbepoetin Beau 40 mcg 10/05/20 08:30 10/05/20 09:17 Darbepoetin Beau 40 Mcg/0.4 Ml Syringe SQ 40 mcg Q7D SPENSER Administration Famotidine 20 mg 10/03/20 09:00 10/09/20 08:32 Famotidine 20 Mg Tab PO 20 mg DAILY SPENSER Administration Linezolid 600 mg/ IV Solution 300 mls @ 150 mls/hr 10/02/20 09:00 10/09/20 08:33 IVPB 150 mls/hr Q12HR SPENSER Administration Protocol Cefepime HCl 1 gm/ Sodium 50 mls @ 12.5 mls/hr 10/04/20 21:00 10/09/20 08:34 Chloride IVPB 12.5 mls/hr Q12HR SPENSER Administration Norepinephrine Bitartrate 8 mg 258 mls @ 10.72 mls/hr 10/08/20 11:00 10/09/20 12:39 / Sodium Chloride IV 0.18 mcg/kg/min .Q24H SPENSER 38.592 mls/hr Titration Protocol 0.05 MCG/KG/MIN Amiodarone HCl 360 mg/ 200 mls @ 33.333 mls/hr 10/09/20 14:30 Dextrose/Water IV 10/09/20 20:29 .Q6H ONE Protocol 1 MG/MIN Insulin Aspart 0 unit 10/06/20 00:00 10/09/20 12:40 Insulin Aspart (Novolog) 100 Unit/Ml Vial SQ 2 unit Q6HR SPENSER Administration Protocol Metoprolol Tartrate 12.5 mg 10/05/20 09:00 10/09/20 08:34 Metoprolol Tartrate 12.5 Mg Tab PO 12.5 mg DAILY SPENSER Administration Nitroglycerin 0.4 mg 09/03/20 13:47 09/07/20 03:35 Nitroglycerin Sl Tabs 0.4 Mg Tab SUBLINGUAL 0.4 mg Q5M PRN Administration Chest Pain Prednisone 30 mg 10/09/20 09:00 10/09/20 08:33 Prednisone 10 Mg Tab PO 30 mg DAILY SPENSER Administration Promethazine HCl 12.5 mg 09/03/20 10:16 09/06/20 02:07 Promethazine Hcl 6.25 Mg/5 Ml Cup PO 12.5 mg QID PRN Administration Cough Zinc Sulfate 220 mg 09/03/20 09:00 10/09/20 08:32 Zinc Sulfate 220 Mg Cap PO 220 mg DAILY SPENSER Administration Objective - Vital Signs Vital signs: Vital Signs Temp 99.0 F 10/09/20 10:22 Pulse 160 H 10/09/20 14:00 Resp 36 H 10/09/20 14:00 BP 114/71 10/09/20 14:00 Pulse Ox 92 L 10/09/20 14:00 Intake & Output 10/08/20 10/09/20 10/09/20 18:59 06:59 18:59 Intake Total 514.540 2110.630 760.199 Output Total 3010 0 500 Balance -2140.771 1100.630 260.199 Weight 109.9 kg Intake: IV 156 506 104 .9 120 120 80 Cefepime 1 gm In Sodium 50 Chloride 0.9% 50 ml @ 12. 5 mls/hr IVPB Q12HR SPENSER Rx#:[id number] Linezolid 600 mg In 300 Dextrose/Water 1 300ml. bag @ 150 mls/hr IVPB Q12HR SPENSER Rx#:[id number] Normal Saline Pressure 36 36 24 bag Intake, IV Titration 67.229 108.630 242.199 Amount Norepinephrine 8 mg In 66.786 108.630 242.199 Sodium Chloride 0.9% 250 ml @ 0.05 MCG/KG/MIN 10. 72 mls/hr IV .Q24H SPENSER Rx #:[id number] Phenylephrine 40 mg In 0.443 Sodium Chloride 0.9% 250 ml @ 0.5 MCG/KG/MIN 17. 697 mls/hr IV .[id number] SPENSER Rx#:[id number] Tube Feeding 396 396 264 Other 250 90 150 Output: Urine 10 0 0 Stool 500 Hemodialysis 2500 500 Other: Voiding Method Indwelling Catheter Indwelling Catheter Indwelling Catheter ABP, PAP, CO, CI - Last Documented Arterial Blood Pressure 105/42 - Exam GENERAL: patient has a tracheostomy and ventilatory support patient has a gaping hole around the tracheostomy site . Temp is 99.0F, pulse is 160, respirations are 36, blood pressure is 106/71 with an arterial blood pressure of 86/46, oxygen saturation is 87-92% with an FiO2 of 55 HEENT: patient does have occasional brainstem reflexes with random eye opening although no eye opening today, No conjunctival pallor. Normocephalic, atraumatic. No pharyngeal erythema. No thyromegaly. CARDIOVASCULAR: S1 and S2 muffled PULMONARY: Diminished breath sounds bilaterally with scattered crackles and rhonchi noted. ABDOMEN: Soft, nontender, nondistended, normoactive bowel sounds. No palpable organomegaly. PEG tube is in place MUSCULOSKELETAL: No joint swelling or deformity. EXTREMITIES: No cyanosis, clubbing, generalized edema noted of upper and lower extremities NEUROLOGICAL: Patient is not moving any of his limbs, continues to be off sedation and not following any commands, unresponsive SKIN: No rashes. - Labs CBC & Chem 7: 10/09/20 05:00 10/09/20 05:00 Labs: Abnormal Lab Results - Last 24 Hours (Table) 10/08/20 10/08/20 10/09/20 Range/Units 17:41 23:33 04:32 WBC (3.8-10.6) k/uL RBC (4.30-5.90) m/uL Hgb (13.0-17.5) gm/dL Hct (39.0-53.0) % RDW (11.5-15.5) % Plt Count (150-450) k/uL ABG pH 7.17 L* (7.35-7.45) ABG pCO2 49 H (35-45) mmHg ABG pO2 61 L (83-108) mmHg ABG HCO3 18 L (21-25) mmol/L ABG O2 Saturation 88.0 L (94-97) % Chloride (98-107) mmol/L Carbon Dioxide (22-30) mmol/L BUN (9-20) mg/dL Creatinine (0.66-1.25) mg/dL Glucose (74-99) mg/dL POC Glucose (mg/dL) 114 H 145 H (75-99) mg/dL Calcium (8.4-10.2) mg/dL Phosphorus (2.5-4.5) mg/dL 10/09/20 10/09/20 10/09/20 Range/Units 05:00 05:00 05:00 WBC 13.7 H (3.8-10.6) k/uL RBC 2.37 L (4.30-5.90) m/uL Hgb 7.5 L (13.0-17.5) gm/dL Hct 23.3 L (39.0-53.0) % RDW 18.8 H (11.5-15.5) % Plt Count 116 L (150-450) k/uL ABG pH (7.35-7.45) ABG pCO2 (35-45) mmHg ABG pO2 (83-108) mmHg ABG HCO3 (21-25) mmol/L ABG O2 Saturation (94-97) % Chloride 110 H (98-107) mmol/L Carbon Dioxide 16 L (22-30) mmol/L BUN 79 H (9-20) mg/dL Creatinine 2.26 H (0.66-1.25) mg/dL Glucose 124 H (74-99) mg/dL POC Glucose (mg/dL) (75-99) mg/dL Calcium 8.3 L (8.4-10.2) mg/dL Phosphorus 5.5 H (2.5-4.5) mg/dL 10/09/20 10/09/20 Range/Units 05:09 11:39 WBC (3.8-10.6) k/uL RBC (4.30-5.90) m/uL Hgb (13.0-17.5) gm/dL Hct (39.0-53.0) % RDW (11.5-15.5) % Plt Count (150-450) k/uL ABG pH (7.35-7.45) ABG pCO2 (35-45) mmHg ABG pO2 (83-108) mmHg ABG HCO3 (21-25) mmol/L ABG O2 Saturation (94-97) % Chloride (98-107) mmol/L Carbon Dioxide (22-30) mmol/L BUN (9-20) mg/dL Creatinine (0.66-1.25) mg/dL Glucose (74-99) mg/dL POC Glucose (mg/dL) 130 H 168 H (75-99) mg/dL Calcium (8.4-10.2) mg/dL Phosphorus (2.5-4.5) mg/dL Microbiology - Last 24 Hours (Table) 10/02/20 12:20 Blood Culture - Final Blood No Growth after 144 hours Assessment and Plan Assessment: -Acute hypoxic respiratory failure secondary to Covid 19 pneumonia, extensive interstitial pneumonia on mechanical ventilation secondary bacterial bronchitis and pneumonia with MRSA. Patient to remains on ventilatory support, nutritional support via PEG tube -Comatose state with absence of cortical functions secondary to severe metabolic encephalopathy, no seizure activity noted -Status post PEG tube and tracheostomy placement -Acute kidney injury secondary to acute tubular necrosis with worsening creatinine -Sputum growing MRSA -Atrial fibrillation with fast ventricular rate: Patient is presently rate controlled on amiodarone -Change in mental status, acute metabolic encephalopathy -Drop in hemoglobin without any clinical evidence of acute blood loss status post 1 unit of PRBC. Probably secondary to frequent blood draws -Hypertension -Elevated troponin possibly secondary to type II acute myocardial infarction secondary to hypoxemia and COVID-19 -GI prophylaxis with Pepcid -DVT prophylaxis with Lovenox -Full code Recommendations and discussion: Recommend to continue with current medications and current ICU management. Patient continues to be off of paralytics and sedatives with no neurological response. Patient being followed by multiple medical consultations and has been receiving daily dialysis although attempted today and patient continued to be extremely hypotensive and elevated heart rate and had to abort the treatment. Patient's heart rate consistently in the 140s to 160s and being started on amiodarone drip again and continues on norepinephrine. Patient continues on IV antibiotics in the form of Zyvox and cefepime for MRSA in the sputum along with the cultures around the tracheostomy and PEG tube site. Pulmonary, neurology, and cardiology also following. Patient has had prolonged hospitalization requiring tracheostomy and PEG tube placement and has started hemodialysis. Family has changed CODE STATUS to no code and is discussing possible comfort care measures. Due to multiple complex medical issues prognosis remains extremely poor and guarded. Further recommendations to follow based on the clinical course the patient.
[2020-10-09 17:39] VITALS: TEMP 100.7
[2020-10-09 18:05] LABS: Glucose,Whole Blood 100 mg/dL (75-99)
[2020-10-09] MEDS ORDERED: ATROPINE OPHTH SOLN 1% 5ML BTL SUBLINGUAL PRN (18:50)
[2020-10-09] MEDS ORDERED: MORPHINE SULFATE 4 MG/ML SYRINGE IVP ONE (18:50)
[2020-10-09] MEDS ORDERED: SCOPOLAMINE 1.5MG/72HR PATCH TRANSDERM SCH (19:00)
[2020-10-09] MEDS ORDERED: MORPHINE SULFATE (100 MG/2 ML) 100 MG in SODIUM CHLORIDE 0.9% 100 ML IV SCH (19:00)
[2020-10-09 19:06] VITALS: BP 82/30; PULSE 73
--- NOTE | 2020-10-10 11:44 | XR ---
EXAMINATION TYPE: XR chest 1V portable DATE OF EXAM: 10/09/2020 COMPARISON: 10/08/2020 HISTORY: SOB, Follow Up FINDINGS: Ileostomy tube and PICC line unchanged. Diffuse airspace infiltrates are seen throughout both lung bobo. Stable appearance of the cardio-mediastinal structures at this time. Pleural effusion unchanged. IMPRESSION: 1. Stable portable chest. Clinical correlation and follow up until resolution is recommended.
--- NOTE | 2020-10-10 12:53 | P.DS ---
Providers Date of admission: 09/03/20 02:49 Expected date of discharge: 10/10/20 Attending physician: Anat Connolly Consults: 09/03/20 00:57 Consult Physician Routine Consulting Provider: Phu Brown Consult Reason/Comments: ARDS, covid 19 Do you want consulting provider notified?: Yes 09/03/20 08:39 Consult Physician Routine Consulting Provider: Kyle Smith Consult Reason/Comments: elevated troponin Do you want consulting provider notified?: Yes 09/22/20 08:04 Consult Physician Routine Consulting Provider: Hipoltio Flores Consult Reason/Comments: trach and peg Do you want consulting provider notified?: Yes 10/02/20 07:45 Consult Physician Routine Consulting Provider: Piotr Brown Consult Reason/Comments: Comatose Do you want consulting provider notified?: Yes 10/02/20 10:59 Consult Physician Urgent Consulting Provider: Favian Young Consult Reason/Comments: SVT versus atrial fibrillation with RVR Do you want consulting provider notified?: Yes 10/03/20 09:21 Consult Physician Routine Consulting Provider: Luzmaria Garcia Consult Reason/Comments: ARF Do you want consulting provider notified?: Yes 10/05/20 09:02 Consult Physician Routine Consulting Provider: Kimberly Diaz Consult Reason/Comments: HD catheter for possible HD tomorrow Do you want consulting provider notified?: Yes Primary care physician: Ben Mccoy Hospital Course: Preliminary cause of COVID-19 pneumonia with extensive bilateral interstitial pneumonia Final diagnosis -Acute hypoxic respiratory failure secondary to Covid 19 pneumonia, extensive interstitial pneumonia on mechanical ventilation secondary bacterial bronchitis and pneumonia with MRSA. -Comatose state with absence of cortical functions secondary to severe metabolic encephalopathy, no seizure activity noted -Status post PEG tube and tracheostomy placement -Acute kidney injury secondary to acute tubular necrosis with worsening creatinine requiring hemodialysis -Sputum positive for MRSA -Atrial fibrillation with fast ventricular rate -Change in mental status, acute metabolic encephalopathy -Drop in hemoglobin without any clinical evidence of acute blood loss status post 1 unit of PRBC. Probably secondary to frequent blood draws -Hypertension -Elevated troponin possibly secondary to type II acute myocardial infarction secondary to hypoxemia and COVID-19 -GI prophylaxis -DVT prophylaxis -No code Discharge disposition Patient has . Per nursing documentation time of is 1999 on 10/09/2020. Hospital course This was a 54-year-old male who was admitted on 09/02/2020 with acute hypoxic respiratory failure secondary to COVID-19 pneumonia and was being closely monitored patient has had prolonged hospitalization and was ultimately placed on mechanical ventilation on 09/13/2020 with unsuccessful attempts at weaning and received tracheostomy along with PEG tube placement. Respiratory status and overall clinical status continued to deteriorate and patient was also found to be in acute renal failure requiring hemodialysis with no improvement. Multiple medical consultations following. Patient was also evaluated by neurology as this last week he had remained off of paralytics and sedation and continued to be unresponsive with no improvement. Lengthy discussion was had with the family and patient was made a no code with possible discussion of comfort care as he clinically continued to deteriorate. Per nursing documentation time of expiration was 1999 on 10/09/2020. Please refer to previous dictations for further HPI. Patient Condition at Discharge: Poor Plan - Discharge Summary Discharge Rx Participant: No New Discharge Prescriptions: No Action Albuterol Inhaler [Ventolin Hfa Inhaler] 2 puff INHALATION RT-QID PRN PRN Reason: Shortness Of Breath amLODIPine [Norvasc] 10 mg PO DAILY allopurinoL [Zyloprim] 300 mg PO DAILY Dexamethasone [Decadron] 3 mg PO BID Azithromycin [Zithromax Z-pack (6 tabs)] See Taper PO DIRECTED Promethazine 6.25MG/5Ml [Phenergan Syrup] 12.5 mg PO QID PRN PRN Reason: Cough Discharge Medication List Albuterol Inhaler [Ventolin Hfa Inhaler] 2 puff INHALATION RT-QID PRN 09/02/20 [History] Azithromycin [Zithromax Z-pack (6 tabs)] See Taper PO DIRECTED 09/02/20 [History] Dexamethasone [Decadron] 3 mg PO BID 09/02/20 [History] Promethazine 6.25MG/5Ml [Phenergan Syrup] 12.5 mg PO QID PRN 09/02/20 [History] allopurinoL [Zyloprim] 300 mg PO DAILY 09/02/20 [History] amLODIPine [Norvasc] 10 mg PO DAILY 09/02/20 [History] Follow up Appointment(s)/Referral(s): Darius Contreras MD [Primary Care Provider] - 1-2 days Discharge Disposition: - Preliminary Cause of Preliminary Cause of : COVID-19 pneumonia with Extensive bilateral interstitial pneumonia
--- NOTE | 2020-10-17 11:21 | CDI ---
Documentation Clarification Form Date: 10/17/2020 11:04:38 AM From: Shanice Berg CCS, CCDS Admit Date: 09/03/2020 02:49:00 AM Patient Name: Tavo Isaacs Visit Number: [id number] Discharge Date: 10/09/2020 08:00:00 PM ATTENTION: The Clinical Documentation Specialists (CDI) and [facility] Coding Staff appreciate your assistance in clarifying documentation. Please respond to the clarification below the line at the bottom and electronically sign. The CDI & [facility] Coding staff will review the response and follow-up if needed. Please note: Queries are made part of the Legal Health Record. If you have any questions, please contact the author of this message via ITS. Dr. Hipolito Flores: General Surgery was consulted on 09/22 regarding placement of a Tracheostomy & PEG tube for prolonged ventilation and Severe Protein Calorie Malnutrition. Trach & PEG were done on 09/22. Beginning with the 10/05 Pulmonary/Critical Care Progress Note through 10/09 the following is documented: "Another issue is the tracheostomy stoma where the patient has a large incision on his back and the stitches have already fallen apart and the patient has a dehisced wound. Per the 10/07 Nursing Note: "Gaping hole around tracheostomy tube with a smaller wedge shaped wound at the right side of the trach. Additional clarification is requested regarding the relationship, if any, that exists between the diagnosis and the procedure. Pre-op Diagnosis 09/22 General Surgery Consult: Acute Hypoxic Respiratory Failure with prolonged ventilation and Severe Protein Calorie Malnutrition Post-Operative Diagnosis: Operative Report Pending Procedure performed 09/22: Tracheostomy & PEG Tube History/Risk Factors per the 09/03 H/P: Hypertension, Former Smoker. Clinical Indicators: Presented to the ED via EMS on 09/03 with SOB. Diagnosed with COVID 19 about 2 weeks prior. ED Clinical Impression: ARDS, Hypoxia, COVID 19 Pneumonia & Elevated Troponin. Treatment 09/02: Put on 15L nrb for PO 86 in ED, transitioned to 60% Airvo and then 100% BiPAP, admitted to ICU. Remained on BiPAP until 09/13 when the patient was subsequently intubated and put on 100% ventilation with eventual Trach & PEG until date of expiration on 10/09. What relationship, if any, exists between the diagnosis of wound dehiscence and the procedure (Trach & PEG): [ ] Wound Dehiscence at Tracheostomy Site is a complication of surgical procedure [ ] Wound Dehiscence at Tracheostomy Site is an expected outcome of the surgical procedure [ ] Would Dehiscence at Tracheostomy Site is related to patients co-morbid condition(s) of, please specify & is not a complication of the procedure [ x ] Other please specify: ___wound infection [ ] Unable to determine (Template Last Revised: July 2020) MTDD
== END 2020-10-09 20:00 | disposition expired | DRG 4 ==
LOC: EC 21:22 → 3SCARD 09-03 02:49 → 2SICU 09-13 03:06
PROVIDERS: ADMIT Hospitalist; ATTEND Hospitalist
PROC: 5A0935A Assistance with Respiratory Ventilation, Less than 24 Consecutive Hours, High Flow/Velocity Cannula (ICD-10-PCS; 2020-09-02)
PROC: 30233N1 Transfusion of Nonautologous Red Blood Cells into Peripheral Vein, Percutaneous Approach (ICD-10-PCS; 2020-09-04)
PROC: XW13325 Transfusion of Convalescent Plasma (Nonautologous) into Peripheral Vein, Percutaneous Approach, New Technology Group 5 (ICD-10-PCS; 2020-09-04)
PROC: XW033H5 Introduction of Tocilizumab into Peripheral Vein, Percutaneous Approach, New Technology Group 5 (ICD-10-PCS; 2020-09-04)
PROC: 3E0336Z Introduction of Nutritional Substance into Peripheral Vein, Percutaneous Approach (ICD-10-PCS; 2020-09-09)
PROC: 02HV33Z Insertion of Infusion Device into Superior Vena Cava, Percutaneous Approach (ICD-10-PCS; 2020-09-09)
PROC: 3E0436Z Introduction of Nutritional Substance into Central Vein, Percutaneous Approach (ICD-10-PCS; 2020-09-11)
PROC: 3E033XZ Introduction of Vasopressor into Peripheral Vein, Percutaneous Approach (ICD-10-PCS; 2020-09-12)
PROC: 0BH17EZ Insertion of Endotracheal Airway into Trachea, Via Natural or Artificial Opening (ICD-10-PCS; 2020-09-13)
PROC: 5A1955Z Respiratory Ventilation, Greater than 96 Consecutive Hours (ICD-10-PCS; 2020-09-13)
PROC: 0B110F4 Bypass Trachea to Cutaneous with Tracheostomy Device, Open Approach (ICD-10-PCS; principal; 2020-09-22 12:15)
PROC: 0DH63UZ Insertion of Feeding Device into Stomach, Percutaneous Approach (ICD-10-PCS; principal; 2020-09-22 12:15)
PROC: 5A1955Z Respiratory Ventilation, Greater than 96 Consecutive Hours (ICD-10-PCS; principal; 2020-09-22 12:15)
PROC: 3E0G76Z Introduction of Nutritional Substance into Upper GI, Via Natural or Artificial Opening (ICD-10-PCS; principal; 2020-09-22 12:15)
PROC: 06HY33Z Insertion of Infusion Device into Lower Vein, Percutaneous Approach (ICD-10-PCS; 2020-10-06)
PROC: 5A1D70Z Performance of Urinary Filtration, Intermittent, Less than 6 Hours Per Day (ICD-10-PCS; 2020-10-06)
DX: A41.89 Other specified sepsis (principal); U07.1 COVID-19; J12.82 Pneumonia due to coronavirus disease 2019; J80 Acute respiratory distress syndrome; G92 Toxic encephalopathy; I21.A1 Myocardial infarction type 2; J15.212 Pneumonia due to Methicillin resistant Staphylococcus aureus; N17.0 Acute kidney failure with tubular necrosis; R65.21 Severe sepsis with septic shock; R40.20 Unspecified coma; D62 Acute posthemorrhagic anemia; E44.0 Moderate protein-calorie malnutrition; E87.0 Hyperosmolality and hypernatremia; E87.1 Hypo-osmolality and hyponatremia; E87.4 Mixed disorder of acid-base balance; G93.1 Anoxic brain damage, not elsewhere classified; I47.1 Supraventricular tachycardia; I48.3 Typical atrial flutter; J95.01 Hemorrhage from tracheostomy stoma; J95.851 Ventilator associated pneumonia; T81.41XA Infection following a procedure, superficial incisional surgical site, initial encounter; D69.6 Thrombocytopenia, unspecified; E83.39 Other disorders of phosphorus metabolism; Z66 Do not resuscitate; Z51.5 Encounter for palliative care; E83.51 Hypocalcemia; G93.89 Other specified disorders of brain; I95.3 Hypotension of hemodialysis; E87.8 Other disorders of electrolyte and fluid balance, not elsewhere classified; I10 Essential (primary) hypertension; E66.9 Obesity, unspecified; Z87.891 Personal history of nicotine dependence; R00.1 Bradycardia, unspecified; Z68.36 Body mass index [BMI] 36.0-36.9, adult; E86.0 Dehydration; E87.5 Hyperkalemia; E87.70 Fluid overload, unspecified; I48.0 Paroxysmal atrial fibrillation; J40 Bronchitis, not specified as acute or chronic; K21.9 Gastro-esophageal reflux disease without esophagitis; Y84.8 Other medical procedures as the cause of abnormal reaction of the patient, or of later complication, without mention of misadventure at the time of the procedure; Z68.31 Body mass index [BMI] 31.0-31.9, adult; Z79.01 Long term (current) use of anticoagulants; Z79.2 Long term (current) use of antibiotics; Y95 Nosocomial condition; Z79.82 Long term (current) use of aspirin; Z79.899 Other long term (current) drug therapy; Z80.0 Family history of malignant neoplasm of digestive organs; F40.240 Claustrophobia; E86.9 Volume depletion, unspecified; R79.1 Abnormal coagulation profile; Z86.14 Personal history of Methicillin resistant Staphylococcus aureus infection; H70 Mastoiditis and related conditions; Z80.51 Family history of malignant neoplasm of kidney; K12.1 Other forms of stomatitis
CPT/HCPCS: 36415; 36573; 36600; 43246; 70450; 70490; 71045; 71250; 71275; 76770; 80048; 80053; 81001; 82140; 82272; 82330; 82550; 82553; 82728; 82805; 83036; 83605; 83615; 83735; 83880; 84100; 84132; 84145; 84450; 84460; 84478; 84484; 85025; 85027; 85379; 85610; 85730; 86140; 86704; 86706; 86850; 86900; 86901; 86920; 87040; 87070; 87077; 87186; 87205; 87324; 87340; 90935; 93005; 93306; 93880; 94002; 94003; 94640; 94660; 94760; 95822; 96374; 96375; 99285